=== PATIENT | male | born 1990 | race Caucasian/White ===

== ENCOUNTER 2023-06-12 07:16 | Outpatient (OUT) | payer MEDICARE, MEDICAID, SELFPAY ==
[2023-06-12 08:05] LABS: Estimated Average Glucose 105 mg/dL; Glycohemoglobin A1C 5.3 % (4.5-6.2)
[2023-06-12 08:27] LABS: Alanine Aminotransferase 27 U/L (16-63); Albumin Globulin Ratio 1.1; Alkaline Phosphatase 98 U/L (46-116); Anion Gap 8.3; Aspartate Amino Transferase 15 U/L (15-37); BUN Creatinine Ratio 10.2; Bilirubin Total 0.2 mg/dL (0.2-1.0); Carbon Dioxide 30.8 mmol/L (21.0-32.0); Chloride 105 mmol/L (98-107); Estimated GFR (African America >60 (>=60); Estimated GFR (Non-African Ame 56 (>=60); Globulin 3.5 g/dL; Glucose 94 mg/dL (74-106); Potassium 4.1 mmol/L (3.5-5.1); Sodium 140 mmol/L (136-145); Thyroid Stimulating Hormone 1.846 uIU/mL (0.358-3.740); Total Protein 7.5 g/dL (6.4-8.2)
[2023-06-15 08:12] LABS: Osmolality, Urine 265 mOsmol/kg (.)
== END 2023-06-12 07:17 | disposition home or self-care (01) ==
LOC: LAB 07:22
PROVIDERS: PCP Family Medicine; Visit Provider Family Medicine
DX: Z79.899 Other long term (current) drug therapy (principal)
CPT/HCPCS: 36415; 80053; 82306; 83036; 83935; 84439; 84443

== ENCOUNTER 2024-01-03 07:05 | Outpatient (OUT) | payer MEDICARE, MEDICAID, SELFPAY ==
[2024-01-03 07:37] LABS: Basophils Percent Auto 0.7 % (0.2-2.0); Eosinophils Absolute Auto 0.2 10^3/uL (0.0-0.7); Eosinophils Percent Auto 3.8 % (0.9-7.0); Hematocrit 39.8 % (42.0-54.0); Hemoglobin 13.3 g/dL (14.0-18.0); Lymphocytes Absolute Auto 1.2 10^3/uL (1.2-3.8); Lymphocytes Percent Auto 21.2 % (20.5-60.0); Mean Corpuscular HGB Conc 33.4 g/dL (29.9-35.2); Mean Corpuscular Volume 86.7 fL (80.0-94.0); Monocytes Absolute Auto 0.4 10^3/uL (0.3-0.8); Monocytes Percent Auto 7.1 % (1.7-12.0); Neutrophils Absolute Auto 3.9 10^3/uL (1.4-6.5); Neutrophils Percent Auto 67.2 % (43.0-75.0); Platelet Count 221 10^3/uL (150-450); Red Blood Count 4.59 10^6/uL (4.70-6.10); Red Cell Distribution Width 13.2 % (11.0-15.0); White Blood Count 5.8 10^3/uL (4.0-11.0)
[2024-01-03 09:01] LABS: Alanine Aminotransferase 28 U/L (16-63); Albumin Globulin Ratio 1.1; Albumin Level 3.8 g/dL (3.4-5.0); Alkaline Phosphatase 103 U/L (46-116); Anion Gap 13.6; Aspartate Amino Transferase 17 U/L (15-37); BUN Creatinine Ratio 14.1; Bilirubin Direct 0.1 mg/dL (0.0-0.2); Bilirubin Total 0.2 mg/dL (0.2-1.0); Carbon Dioxide 26.4 mmol/L (21.0-32.0); Chloride 108 mmol/L (98-107); Estimated GFR (African America >60 (>=60); Estimated GFR (Non-African Ame 52 (>=60); Globulin 3.6 g/dL; Glucose 81 mg/dL (74-106); Phosphorus 3.1 mg/dL (2.6-4.7); Sodium 144 mmol/L (136-145); Thyroid Stimulating Hormone 1.989 uIU/mL (0.358-3.740); Total Protein 7.4 g/dL (6.4-8.2)
[2024-01-03 09:53] LABS: Free T4 0.47 ng/dL (0.76-1.46)
[2024-01-04 10:09] LABS: PTH, Intact 19 pg/mL (15-65)
== END 2024-01-03 07:06 | disposition home or self-care (01) ==
LOC: LAB 07:07
PROVIDERS: PCP Family Medicine; Visit Provider Family Medicine
DX: N18.9 Chronic kidney disease, unspecified (principal); E03.9 Hypothyroidism, unspecified; E55.9 Vitamin D deficiency, unspecified
CPT/HCPCS: 36415; 80053; 82248; 82607; 82746; 83970; 84100; 84439; 84443; 85025

== ENCOUNTER 2024-07-06 17:11 | Outpatient (REF) | payer MEDICARE, MEDICAID, SELFPAY ==
--- OUTSIDE RECORDS SUMMARY | 2024-07-06 17:22 | XMS_ITS | CCD ---
Author Organization [facility] Care Team Providers Care Sewer And Inspector Name Role Phone DABOUL, ISAM Admitting Unavailable DABOUL, ISAM Attending Unavailable EPPSRALEIGH Primary Care Unavailable DABOUL, ISAM Referring Unavailable EPPSRALEIGH Primary Care Unavailable EPPSRALEIGH Admitting Unavailable EPPSRALEIGH Referring Unavailable EppsRaleigh Unavailable EppsRaleigh mccain Primary Care Provider RALEIGH EPPS Attending Unavailable EPPSRALEIGH Referring Unavailable EPPSRALEIGH Primary Care Unavailable Duke Nematollahi, Erin Unavailable Unavai Sai Tena Unavailable Unavailable Nancy DDS, Nataliia Unavailable Raleigh Epps DO Primary Care Provider Sai Batres Unavailable Unavailable Unavailable JAYDE ALEXIS Consulting Unavailable PAY ., DR GORDON Attending Unavailable EPPS, DR RALEIGH Cruz Primary Care Unavailable PAY ., DR GORDON Admitting Unavailable HAY ., DR HARVEY Attending Unavailable EPPS, DR RALEIGH Cruz Primary Care Unavailable HAY ., DR HARVEY Consulting Unavailable HAY ., DR HARVEY Admitting Unavailable FALVO, JON Consulting Unavailable EPPS, DR RALEIGH Cruz Consulting Unavailable EPPS, DR RALEIGH Cruz Primary Care Unavailable EPPS, DR RALEIGH Cruz Admitting Unavailable EPPS, DR RALEIGH Cruz Attending Unavailable EPPS, DR RALEIGH Cruz Consulting Unavailable EPPS, DR RALEIGH Cruz Primary Care Unavailable EPPS, DR RALEIGH Cruz Attending Unavailable EPPS, DR RALEIGH Cruz Admitting Unavailable ZIEBER, DR LUIS Gonzalez Consulting Unavailable MISC, DR YANEZ Attending Unavailable EPPS, DR RALEIGH Cruz Primary Care Unavailable MISC, DR YANEZ Consulting Unavailable MISC, DR YANEZ Admitting Unavailable EPPS, DR RALEIGH Cruz Consulting Unavailable EPPS, DR RALEIGH Cruz Primary Care Unavailable EPPS, DR RALEIGH Cruz Admitting Unavailable EPPS, DR RALEIGH Cruz Attending Unavailable EPPS, DR RALEIGH Cruz Primary Care Unavailable PAY ., DR GORDON Attending Unavailable PAY ., DR GORDON Consulting Unavailable PAY ., DR GORDON Admitting Unavailable YEHRISA Consulting Unavailable Duke Nematollahi, Erin Referring Unavai lable Medardo, Dr. Sai Mcgrath Primary Care Unavailab le Duke Nematollahi, Erin Attending Unavai lable Duke Nematollaelizabeth, Erin Attending Unavai lable Duke Nematollahi, Erin Referring Unavai lable Medardo, Dr. Sai Mcgrath Primary Care Unavailab le Duke Nematollahi, Erin Attending Unamelisa Batres, Dr. Sai Mcgrath Primary Care Unavailab le Self, Referral Referring Unavailable Nancy DDS, Nataliia Unavailable Raleigh Epps DO Primary Care Provider [phone] PROVIDER, UNKNOWN Admitting Unavailable PROVIDER, UNKNOWN Attending Unavailable RALEIGH EPPS Primary Care Unavailable PROVIDER, UNKNOWN Admitting Unavailable PROVIDER, UNKNOWN Attending Unavailable RALEIGH EPPS Primary Care Unavailable AL-MASHNI, TYRESE Admitting Unavailable AL-MASHNI, TYRESE Attending Unavailable RALEIGH EPPS Primary Care Unavailable PROVIDER, UNKNOWN Admitting Unavailable PROVIDER, UNKNOWN Attending Unavailable RALEIGH EPPS Primary Care Unavailable Sai Batres MD Primary Care Provider RALEIGH EPPS Referring Unavailable EPPSRALEIGH MCCAIN Attending Unavailable EPPSRALEIGH MCCAIN Admitting Unavailable BREE WHITING Attending Unavailable SAI BATRES Primary Care Unavailable BREE WHITING Attending Unavailable SAI BATRES Primary Care Unavailable Allergies Allergy Classification Reported Allergen(s) Allergy Type Date of Onset Reaction(s) Facility (3 sources) fluvoxaMINE; Translations: [Luvox] Drug Allergy [facility] Repository (15 sources) QUEtiapine; Translations: [SEROquel TABS] Drug Allergy 02-03-2017 Unknown [facility] [place] [address] Work Phone: (4 sources) risperiDONE; Translations: [risperiDONE TABS] Drug Allergy 02-06-2017 Unknown [facility] [employer] [address] Work Phone: (2 sources) Valproate; Translations: [Depakote] Drug Allergy [facility] [employer] [address] Work Phone: (15 sources) fluvoxaMINE; Translations: [FLUVOXAMINE] Drug Allergy 02-06-2017 [facility] Valproate; Translations: [VALPROIC ACID] Drug [facility] 02[facility]03[facility]2017 [facility] (13 sources) risperiDONE; Translations: [RISPERIDONE] Drug Allergy 02-06-2017 [facility] (2 sources) QUEtiapine; Translations: [QUETIAPINE] Drug Allergy 02-03-2017 [facility] Repository (2 sources) Valproate; Translations: [DIVALPROEX] Drug Allergy 11-15-2023 Unknown [facility] (1 source) QUEtiapine; Translations: [SEROquel] Drug Allergy [facility] Repository Medications Current Medications Medication Drug Class(es) Dates Sig (Normalized) Sig (Original) acetaminophen 325 mg oral tablet (15 sources) Start: 10-02-2023 End: 10-02-2023 acetaminophen (TYLENOL) tablet take 1-2 tablets by mouth every six hours as needed Acetaminophen 325 MG Oral Tablet TAKE 1 TO 2 TABLETS EVERY 6 HOURS NEEDED. Quantity: 0 Refills: 0 Ordered: 27-Jan-2015 DO Active bisacodyl 5 mg delayed release oral tablet (14 sources) Stimulant Laxative take 1 tablet by mouth once daily bisacodyl (DULCOLAX) 5 MG enteric coated tablet Take 5 mg by mouth daily. 0 Active Bisacodyl 10 MG Rectal Suppository USE DIRECTED. Quantity: 0 Refills: 0 Ordered: 27-Jan-2015 DO Active Bisacodyl 10 MG Rectal Suppository USE DIRECTED. Refills: 0 Active busPIRone hydrochloride 10 m g oral tablet (15 sources) take 3 tablets by mo ut three times daily busPIRone (Buspar) 10 mg tablet Take 3 tablets (30 mg) by mouth 3 times a day. 0 Active take 1 tablet by mouth three dalia es daily busPIRone HCl - 10 MG Oral Tablet TAKE 1 TABLET 3 times daily Quantity: 0 Refills: 0 Ordered: 16-Mar-2018 DO Active calcium carbonate 500 mg chewable tablet (3 sources) Start: 05-25-2021 calcium carbon ate (Tums) 200 mg calcium chewable tablet Chew 2 tablets (1,000 mg) once daily at bedtime. 0 05/25/2021 Active Start: 05-25-2021 Antacid Regula r Strength 500 MG Oral Tablet Chewable CHEW 2 TABLET BY MOUTH AT NIGHT BEFORE BED FOR NAUSEAUPSET STOMACH Quantity: 28 Refills: 0 Ordered: 19-Jan-2022 DO Start : 25-May-2021 Active Antacid CHEW ISAMAR E DIRECTED. Chew 2 every 4 hours as needed Refills: 0 Active Calcium Carbonate Antacid (ANTACID ORAL) (12 sources) take 2 tablets by mouth at bedtime Calcium Carbonate Antacid (ANTACID ORAL) Take 2 Tablets by mouth at bedtime. 0 Active cholecalciferol 0.025 mg oral tablet (14 sources) Vitamin D Start: 03-25-2022 take 1 tablet by mouth once daily cholecalciferol (Vitamin D-3) 25 MCG (1000 UT) tablet Take 1 tablet (25 mcg) by mouth once daily. 0 03/25/2022 Active Start: 03-25-2022 take 1 tablet by brenna once daily Vitamin D3 25 MCG (1000 UT) Oral Tablet TAKE 1 TABLET BY MOUTH EVERY DAY Quantity: 30 Refills: 5 Ordered: 25-Mar-2022 DO Start : 25-Mar-2022 Active cloNIDine hydrochloride 0.2 mg oral tablet (14 sources) Central alpha-2 Adrenergic Agonist take 1 tablet by mouth three times daily clonidine (CATAPRES) 0.2 MG tablet Take 0.2 mg by mouth 3 times daily. 0 Active docusate sodium 100 mg oral capsule (15 sources) take 1 capsule by mouth three times daily docusate sodium (Colace) 100 mg capsule Take 1 capsule (100 mg) by mouth 3 times a day. 0 Active take 2 capsules by m outh three times daily Docusate Sodium 100 MG Oral Capsule 2 capsules 3 times a day Quantity: 0 Refills: 0 Ordered: 01-Aug-2014 DO Active folic acid 1 mg oral tablet (15 sources) take 1 tablet by mouth once daily folic acid (Folvite) 1 mg tablet Take 1 tablet (1 mg) by mouth once daily. 0 Active gabapentin 400 mg oral capsule (4 sources) Anti-epileptic Agent take 1 capsule by mouth once daily gabapentin (Neurontin) 400 mg capsule Take 1 capsule (400 mg) by mouth once daily. 0 Active take 1 tablet by brenna th three times daily gabapentin (Neurontin) 800 mg tablet Isamar e 1 tablet (800 mg) by mouth 3 times a day. 0 Active guanFACINE 1 mg oral tablet (20 sources) Central alpha-2 Adrenergic Agonist Start: 03-25-2022 take 2 tablets by mouth once daily at bedtime guanFACINE (Tenex) 1 mg tablet Take 2 tablets (2 mg) by mouth once daily at bedtime. 0 03/25/2022 Active Start: 03-25-2022 take 1 tablet by brenna at bedtime guanFACINE HCl - 1 MG Oral Tablet TAKE 1 TABLET AT BEDTIME. Quantity: 0 Refills: 0 Ordered: 25-Mar-2022 DO Start : 25-Mar-2022 Active take 1 tablet by brenna twice daily guanFACINE (Tenex) 2 mg tablet Take 1 tablet (2 mg) by mouth twice a day. 0 Active take 4 tablets by mo [facility] in the morning, then take 8 tablets by mouth in the evening, then take 1 tablet by mouth at bedtime guanFACINE HCl - 2 MG Oral Tablet at 8 AM , 4 PM, and 8 PM and 1 tablet at bedtime Refills: 0 Active 1 ml HYDROmorphone hydrochloride 0.2 mg/ml prefilled syringe (2 sources) Opioid Agonist Start: 10-02-2023 End: 10-03-2023 HYDROmorphone (DILAUDID) 1 mg/mL injection Start: 10-02-2023 End: 10-04-2023 HYDROmorphone (DILAUDID) 0.2 MG/ML injection 0.2 mg linaclotide 0.29 mg oral capsule (15 sources) Guanylate Cyclase-C Agonist Start: 03-24-2016 take 1 capsule by mouth once daily linaCLOtide (Linzess) 290 mcg capsule Take 1 capsule (290 mcg) by mouth once daily. 0 03/24/2016 Active loratadine 10 mg oral tablet (15 sources) take 1 tablet by mouth once daily loratadine (Claritin) 10 mg tablet Take 1 tablet (10 mg) by mouth once daily. 0 Active lurasidone hydrochloride 120 mg oral tablet (15 sources) Atypical Antipsychotic Start: 01-20-2022 take 1 tablet by mouth once daily at bedtime lurasidone (Latuda) 120 mg tablet Take 1 tablet (120 mg) by mouth once daily at bedtime. 0 01/20/2022 Active take 1 tablet by mouth at bedtim e lurasidone (LATUDA) 80 MG tablet Take 1 Tablet by mouth at bedtime. 0 Active melatonin 5 mg oral tablet (15 sources) take 1 tablet by mouth once daily at bedtime melatonin 5 mg tablet Take 1 tablet (5 mg) by mouth once daily at bedtime. 0 Active metoprolol tartrate 100 mg oral tablet (15 sources) beta-Adrenergic Doug take 1 tablet by mouth four times daily metoprolol tartrate (Lopressor) 100 mg tablet Take 1 tablet (100 mg) by mouth 4 times a day. 0 Active Multiple Vitamins-Minerals (THERA-M ORAL) (12 sources) take 1 tablet by mouth once daily Multiple Vitamins-Minerals (THERA-M ORAL) Take 1 Tablet by mouth daily. 0 Active 1 ml naloxone hydrochloride 0.4 mg/ml injection (1 source) Opioid Antagonist Start: 3 naloxone (NARCAN) 0.4 MG/ML injection omeprazole 20 mg delayed release oral capsule (15 sources) Proton Pump Inhibitor take 1 capsule by mouth once daily omeprazole (PriLOSEC) [address] capsule Take 1 capsule (20 mg) by mouth once daily. 0 Active take 10 tablets by mouth once da regulo Omeprazole 20 MG Oral Tablet Delayed Release once a day Quantity: 0 Refills: 0 Ordered: 20-Jan-2017 DO Active Omeprazole 20 MG Oral Tablet Delayed Release once a day Refills: 0 Active 2 ml ondansetron 2 mg/ml injection (3 sources) Serotonin-3 Receptor Antagonist Start: 10-02-2023 End: 10-02-2023 ondansetron (ZOFRAN) 4 MG/2ML injection Start: 01-27-2015 take 1 tablet by brenna th every six hours as needed for nausea Ondansetron HCl - 4 MG Oral Tablet TAKE 1 TABLET Every 6 hours PRN nausea Quantity: 0 Refills: 0 Ordered: 27-Jan-2015 DO Start : 27-Jan-2015 Active OXcarbazepine 600 mg oral tablet (20 sources) Anti-epileptic Agent Start: 08-19-2021 OXcarbaze pine (Trileptal) 600 mg tablet Take by mouth 2 times a day. 0 08/19/2021 Active Start: 08-19-2021 take 2 tablets by mo uth twice daily OXcarbazepine 600 MG Oral Tablet TAKE TWO TABLETS BY MOUTH TWICE A DAY TRILEPTAL Quantity: 56 Refills: 0 Ordered: 26-Jan-2022 DO Start : 19-Aug-2021 Active take 600 mg by mouth once daily in the morning OXcarbazepine ER 600 MG TB24 Take 600 mg by mouth every morning. 0 Active take 1200 mg by mout h at bedtime OXcarbazepine ER 600 MG TB24 Take 1,200 mg by mouth at bedtime. 0 Active Polyethylene Glycols (12 sources) take 17 g by mouth twice daily Polyethylene Glycol 3350 (MIRALAX ORAL) Take 17 g by mouth 2 times daily. 0 Active 20 ml sodium chloride 9 mg/ml injection (1 source) Start: 10-02-2023 sodium chloride 0.9 % (PF) 0.9 % injection topiramate 25 mg oral capsule (3 sources) take 1 capsule by mouth three times daily topiramate (Topamax Sprinkle) 25 mg capsule Take 1 capsule (25 mg) by mouth 3 times a day. 0 Active take 1 capsule by mouth twice da regulo topiramate (TOPAMAX) 25 MG capsule Take 25 mg by mouth 2 times daily. 0 Active traMADol hydrochloride 50 mg oral tablet (1 source) Opioid Agonist Start: 10-02-2023 End: 10-02-2023 tramadol (ULTRAM) tablet traZODone hydrochloride 100 mg oral tablet (14 sources) Serotonin Reuptake Inhibitor Start: 10-19-2021 take 0.5 tablet by mouth once daily at bedtime traZODone (Desyrel) 100 mg tablet Take 0.5 tablets (50 mg) by mouth once daily at bedtime. 0 10/19/2021 Active Start: 10-19-2021 take 1 tablet by brenna th at bedtime traZODone HCl - 100 MG Oral Tablet TAKE ONE TABLET BY MOUTH AT BEDTIME DESYREL Quantity: 14 Refills: 0 Ordered: 26-Jan-2022 DO Start : 19-Oct-2021 Active Completed/Discontinued Medications Medication Drug Class(es) Dates Sig (Normalized) Sig (Original) antipyrine 54 mg/ml / benzocaine 14 mg/ml otic solution (1 source) Standardized Chemical Allergen Antipyrine-Benzoca ine 5.4-1.4 % SOLN PLACE 1 TO 2 DROPS IN THE AFFECTED EAR(S) EVERY 3 TO 4 HOURS NEEDED FOR EAR PAIN. Refills: 0 Active barium sulfate (VARIBAR PUDDING) 40 % (w/v), 30% (w/w) oral paste 1 Dose (1 source) Start: 09-11-2020 End: 09-11-2020 barium sulfate (VARIBAR PUDDING) 40 % (w/v), 30% (w/w) oral paste 1 Dose benztropine mesylate 0.5 mg oral tablet (1 source) Anticholinergic, Antihistamine take 1 tablet by mouth three times daily Benztropine Mesylate 0.5 MG Oral Tablet 1 tablet 3 times a day Refills: 0 Active carBAMazepine 200 mg oral tablet (14 sources) Mood Stabilizer Start: 01-20-2022 take 2 tablets by mouth twice daily carBAMazepine 200 MG Oral Tablet TAKE 2 TABLETS TWICE DAILY Quantity: 0 Refills: 0 Ordered: 30-Sep-2022 DO Start : 20-Jan-2022 Active take 1 tablet by mouth twice edith ly carbamazepine (TEGRETOL XR) 400 MG XR tablet Take 400 mg by mouth 2 times daily. 0 Active take 1 tablet by mouth once tom y carBAMazepine ER 400 MG Oral Tablet Extended Release 12 Hour TAKE 1 TABLET EVERY 12 HOURS DAILY. Refills: 0 Active cephalexin 500 mg oral capsule (1 source) Cephalosporin Antibacterial Start: 03-18-2022 take 1 capsule by mouth twice daily Cephalexin 500 MG Oral Capsule TAKE ONE CAPSULE BY MOUTH TWICE A DAY FOR 7 DAYS. Quantity: 14 Refills: 0 Ordered: 18-Mar-2022 DO Start : 18-Mar-2022 Active chlorhexidine gluconate 1.2 mg/ml mouthwash (2 sources) Start: 03-20-2019 Chlorhexidine Gluconate 0.12 % Mouth/Throat Solution USE DIRECTED Quantity: 0 Refills: 0 Ordered: 20-Mar-2019 DO Start : 20-Mar-2019 Active Start: 03-20-2019 Chlorhexidine Gluconate 0.12 % Mouth/Throat Solution USE DIRECTED Refills: 0 Start : 20-Mar-2019 Active clindamycin 10 mg/ml topical solution (1 source) Lincosamide Antibacterial Start: 08-01-2014 Clindamycin Phosphate 1 % External Solution APPLY DIRECTED NEEDED FOR ACNE Refills: 0 Start : 01-Aug-2014 Active clonazePAM 0.5 mg oral tablet (20 sources) Benzodiazepine Start: 08-17-2017 take 0.5 tablet by mouth once daily in the morning, then take 1.5 tablets by mouth at bedtime clonazePAM 0.5 MG Oral Tablet TAKE half tab every am, take 1.5 TABLET at bedtime. Quantity: 0 Refills: 0 Ordered: 25-Mar-2022 DO Start : 17-Aug-2017 Active Start: 08-17-2017 take 1 tablet by brenna th twice daily clonazePAM 0.5 MG Oral Tablet TAKE 1 TABLET TWICE DAILY. Refills: 0 Start : 17-Aug-2017 Active Start: 08-04-2017 take 1 tablet by brenna th three times daily clonazePAM 1 MG Oral Tablet TAKE 1 TABLET 3 TIMES DAILY. Refills: 0 Start : 04-Aug-2017 Active take 1 tablet by brenna twice daily clonazePAM (KlonoPIN) 1 MG tablet Take 1 mg by mouth 2 times daily. At 4pm and 10pm 0 Active guaiFENesin 400 mg oral tablet (2 sources) Start: 07-09-2021 take 1 tablet by mouth twice daily as needed for congestion Chest Congestion Relief 400 MG Oral Tablet TAKE ONE TABLET BY MOUTH TWICE A DAY NEEDED FOR CONGESTION Quantity: 20 Refills: 0 Ordered: 09-Jul-2021 DO Start : 09-Jul-2021 Active take 1 tablet by mouth twice edith ly Mucinex 600 MG Oral Tablet Extended Release 12 Hour TAKE 1 TABLET TWICE DAILY. Refills: 0 Active haloperidol 10 mg oral tablet (1 source) Typical Antipsychotic take 1 tablet by mouth three times daily Haloperidol 10 MG Oral Tablet Take 1 tablet three times daily. Refills: 0 Active ibuprofen 600 mg oral tablet (1 source) Nonsteroidal Anti-inflammatory Drug take 1 tablet by mouth three times daily as needed Ibuprofen 600 MG Oral Tablet TAKE 1 TABLET 3 TIMES DAILY NEEDED. Refills: 0 Active lanolin 0.157 mg/mg / menthol 0.0044 mg/mg / petrolatum 0.24 mg/mg / zinc oxide 0.206 mg/mg topical ointment (1 source) Calmoseptine 0.44-20.6 % OINT Apply to rash on groin area as needed until healed Refills: 0 Active levothyroxine sodium 0.05 mg oral tablet (16 sources) l-Thyroxine Start: 12-28-19 18 take 1 tablet by mouth once daily Levothyroxine Sodium 50 MCG Oral Tablet TAKE 1 TABLET DAILY. Quantity: 30 Refills: 0 Ordered: 25-Mar-2022 DO Start : 25-Mar-2022 Active Start: 10-19-2017 take 1 tablet by once daily Levothyroxine Sodium 100 MCG Oral Tablet TAKE 1 TABLET DAILY EXCEPT SATURDAYS. Quantity: 30 Refills: 10 Start : 19-Oct-2017 Active minocycline 100 mg oral tablet (1 source) Tetracycline-class Drug Minocycl ine HCl - 100 MG Oral Tablet daily Refills: 0 Active polyethylene glycol 3350 77785 mg powder for oral solution (2 sources) Osmotic Laxative Polyethylene Gl ycol 3350 17 GM Oral Packet MIX 1 PACKET IN 8 OUNCES OF LIQUID AND DRINK TWICE DAILY. Quantity: 0 Refills: 0 Ordered: 20-Jan-2017 DO Active raNITIdine 150 mg oral tablet (1 source) Histamine-2 Receptor Antagonist take 1 tablet by mouth twice daily raNITIdine HCl - 150 MG Oral Tablet TAKE 1 TABLET TWICE DAILY. Refills: 0 Active sertraline 50 mg oral tablet (1 source) Serotonin Reuptake Inhibitor take 1 tablet by mouth at bedtime Sertraline HCl - 50 MG Oral Tablet TAKE 1 TABLET AT BEDTIME. Quantity: 30 Refills: 6 Active Thera-M Oral Tablet (1 source) Start: 019 take 1 tablet by mouth once daily Thera-M Oral Tablet TAKE 1 TABLET DAILY. Refills: 0 Start : 20-Mar-2019 Active vitamin d 1000 unt oral tablet (1 source) Start: 017 take 1 tablet by mouth once daily Vitamin D 1000 UNIT Oral Tablet TAKE 1 TABLET DAILY. Quantity: 1 Refills: 3 Erin Ogden Start : 23-Jan-2017 Active 90 Tablet Bottle Problems Active Problems Problem Classification Problem Date Documented Da te Episodic/Chronic Attention-deficit, conduct, and disruptive behavior disorders (1 source) Other conduct disorders; Translations: [OTHER CONDUCT DISORDERS] Onset: 2 Chronic Attention-deficit, conduct, and disruptive behavior disorders (1 source) Attention-deficit hyperactivity disorder, unspecified type; Translations: [ADHD UNSPECIFIED TYPE] Onset: 2 Chronic Developmental disorders (15 sources) Profound intellectual disability; Translations: [Intellectual disability] Onset: 1 01-28-2021 Chronic Disorders usually diagnosed in infancy childhood or adolescence (3 sources) Autistic disorder; Translations: [Autistic disorder, current or active state] Onset: 2 Chronic Esophageal disorders (14 sources) Gastroesophageal reflux disease; Translations: [Gastro-esophageal reflux disease without esophagitis] Onset: 1 02-05-2021 Chronic Essential hypertension (15 sources) Hypertensive disorder; Translations: [Essential (primary) hypertension] Onset: 1 02-05-2021 Chronic Mood disorders (5 sources) Bipolar affective disorder, current episode manic; Translations: [Seasonal affective disorder] Onset: 3 Chronic Nutritional deficiencies (2 sources) Decreased vitamin D; Translations: [Other abnormal blood chemistry] Episodic Other aftercare (1 source) Other prison (current) drug therapy; Translations: [OTH FUR TINTER CURRENT DRUG THERAPY] Onset: 3 Episodic Other endocrine disorders (2 sources) Hyperparathyroidism, unspecified; Translations: [Hyperparathyroidism, unspecified (Multi)] Onset: 4 Chronic Other gastrointestinal disorders (1 source) Pharyngeal dysphagia; Translations: [Pharyngeal dysphagia] Episodic Other gastrointestinal disorders (2 sources) Constipation; Translations: [Constipation, unspecified] Episodic Other nutritional; endocrine; and metabolic disorders (2 sources) 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; Translations: [Hypercalcemia] Chronic Other nutritional; endocrine; and metabolic disorders (5 sources) Hypercalcemia; Translations: [Hypercalcemia] 11-15-2023 Chronic Comment on above: Added by Problem Lis t Migration; 2013-07-05; Moved to Suppressed Oct 05 2013 9:01PM; Other nutritional; endocrine; and metabolic disorders (2 sources) Hypocalcemia; Translations: [Hypocalcemia] Chronic Other nutritional; endocrine; and metabolic disorders (1 source) Hypocalcemia; Translations: [HYPOCALCEMIA] Onset: 2 Chronic Other nutritional; endocrine; and metabolic disorders (2 sources) Hypercalcemia; Translations: [Hypercalcemia] Onset: 4 Chronic Other nutritional; endocrine; and metabolic disorders (2 sources) Abnormal weight loss; Translations: [Loss of weight] Episodic Comment on above: Added by Problem Lis hiren Migration; 2013-07-05; Moved to [facility] Oct 05 2013 9:01PM; Other nutritional; endocrine; and metabolic disorders (2 sources) Overweight in adulthood with body mass index of 25 or more but less than 30; Translations: [Body mass index (BMI) 28.0-28.9, adult] 09-15-2023 Episodic Other nutritional; endocrine; and metabolic disorders (2 sources) Personal history of other endocrine, nutritional and metabolic disease; Translations: [Personal history of other endocrine, nutritional and metabolic disease] Onset: 4 Episodic Thyroid disorders (20 sources) Multinodular goiter; Translations: [Hypothyroidism] Onset: 1 02-05-2021 Chronic Past or Other Problems Problem Classification Problem Date Documented Da te Episodic/Chronic Attention-deficit, conduct, and disruptive behavior disorders (1 source) Other symptoms and signs involving appearance and behavior; Translations: [OTH SX SIGNS INVLV APPEAR BEHAVIOR] Onset: 09-12-2022 Episodic Conditions associated with dizziness or vertigo (4 sources) Dizziness and giddiness; Translations: [DIZZINESS AND GIDDINESS] Onset: 09-20-2022 Episodic Diabetes mellitus without complication (2 sources) Acute hyperglycemia; Translations: [Other abnormal glucose] Resolved: 07-12-2016 Episodic Diseases of mouth; excluding dental (1 source) Disturbances of salivary secretion; Translations: [DISTURBANCES OF SALIVARY SECRETION] Onset: 07-22-2022 Episodic Disorders of teeth and jaw (13 sources) Dental caries; Translations: [Dental caries, unspecified] Onset: 08-18-2023 Resolved: 10-02-2023 08-18-2023 Episodic E Codes: Fall (1 source) Unspecified fall, initial encounter; Translations: [UNSPECIFIED FALL INITIAL ENCOUNTER] Onset: 09-12-2022 Episodic E Codes: Natural/environment (1 source) Exposure to other specified factors, initial encounter; Translations: [EXPOSURE OTHER SPEC FACTORS INITIAL] Onset: 03-09-2022 Episodic Immunizations and screening for infectious disease (1 source) Encounter for immunization; Translations: [ENCOUNTER FOR IMMUNIZATION] Onset: 03-09-2022 Episodic Open wounds of head; neck; and trunk (12 sources) Laceration without foreign body of oral cavity, initial encounter; Translations: [Laceration without foreign body of left eyelid and periocular area, initial encounter] Onset: 03-07-2022 Episodic Other circulatory disease (1 source) Elevated blood-pressure reading, without diagnosis of hypertension; Translations: [ELEVATED BP READING W/O DX HTN] Onset: 09-25-2022 Episodic Other injuries and conditions due to external causes (1 source) Other specified injuries of head, initial encounter; Translations: [OTH SPEC INJURIES HEAD INITIAL ENC] Onset: 09-12-2022 Episodic Other screening for suspected conditions (not mental disorders or infectious disease) (1 source) Other specified abnormal findings of blood chemistry; Translations: [OTH SPEC ABNORMAL FINDINGS BLD CHEM] Onset: 10-10-2022 Episodic NEGATED: Highlighted row has not occurred!Residual codes; unclassified (6 sources) Disease Episodic Results Test Name Value Interpretation Reference Range Facility Consent for Treatmenton Consent for Treatment [id number] .[id number] Normal [facility] XR Adult Swallowing Function w/ Videoon 12-15-2023 XR Adult Swallowing Function w/ Video Exam Date/Time: 12/15/2023 09:32 EST Reason for Exam: DYSPHAGIA Report IMPRESSION: LIMITED MODIFIED BARIUM SWALLOW. A FULL REPORT WILL BE MADE BY THE SPEECH PATHOLOGY TEAM. EXAM: XR Adult Swallowing Function w/ Video DATE: 12/15/2023 9:03 AM CLINICAL HISTORY: DYSPHAGIA. COMPARISON: 10/30/2019 TECHNIQUE: Lateral videofluoroscopy was provided during speech therapy evaluation during ingestion of various barium consistencies. A total of 17.1 mGy Air Kerma (Ka, r) of fluoroscopy was used with 6 fluoroscopic cine series saved. No diagnostic images were obtained. FINDINGS: Oral and pharyngeal phases are within functional limits. There is no significant laryngeal penetration or tracheal aspiration observed. The patient essentially refused barium liquids. Mild to moderate residual collections are present within the vallecula and piriform sinuses. A full report will be made by the speech pathology team. Ordering Provider: RALEIGH EPPS FINAL REPORT Dictated: 12/15/2023 11:40 am Paul Ralph MD Signed (Electronic Signature): 12/15/2023 11:40 am Signed by: Paul Ralph MD Transcribed by: GLEN Technologist: FAMILIA Technical Comments Radiation Dose: chen Albert in mGy = 17.10 DAP = 395.03 Normal [facility] Physician Orderon 12-11-2023 Physician Order [id number]. 00TIFF Normal [facility] Anesthesia Postprocedure Clara luationon 10-03-2023 Performance Test Architect Authentication Interface Message Text Anesthesia Postoperative Assessment: Vital Signs (most recent): BP 141/91 (BP Location: right arm) Pulse 58 Temp 36 ???C (96.8 ???F) (Temporal) Resp 22 Ht 5' 10 (1.778 m) Wt 204 lb (92.5 kg) SpO2 100% BMI 29.27 kg/m??? Anesthesia Post Evaluation Level of consciousness: awake Post-procedure exam normal. Body temperature, hydration status, PONV and pain evaluated and addressed. Pain management: adequate Hydration status: normal PONV:No nausea/vomiting reported Cardiopulmonary status stable Respiratory status: acceptable Cardiovascular status: acceptable ANESTHESIA NOTABLE EVENTS: No notable events documented. Normal [facility] Anesthesia Preprocedure Eval uationon 10-02-2023 Performance Test Architect Authentication Interface Message Text ASA: 3 No history of anesthetic complications PSE status: Had PSE NPO status: >8 hours Past Medical History and Review of Systems (Full ROS completed in PSE) Pulmonary - negative ROS Dental ROS (+) teeth problems, Endo (+) hypothyroidism, Neuro/Psych (+) depression, bipolar disorder, seizures (Last seizure unknown), attention deficit hyperactivity disorder, Cardiovascular (+) hypertension, Surgical risk: intermediate; Cardiac condition: stable, (-) CHF ECG reviewed No previous ECG available GI/Hepatic/Renal (+) GERD, Heme/Other - negative ROS Other ROS: Markel Li is 33 year old male here for Procedure(s): DENTAL RESTORATIONS Patient Active Problem List: Intellectual disability (F79) GERD (gastroesophageal reflux disease) (K21.9) HTN (hypertension) (I10) Hypothyroid (E03.9) Caries (K02.9) Allergies: -- Depakote (Valproic Acid) -- Luvox (Fluvoxamine) -- Risperidone -- Seroquel (Quetiapine) Physical Exam Airway Mallampati: II TM distance: Adequate Micrognathia: Not present Jaw opening: Adequate Neck flexion: Adequate Dental Dentition: Dental carries. Pulmonary - pulmonary exam normal Comment: Chest clear to auscultation bilaterally Cardiovascular - cardiovascular exam normal Comment: RRR with S1S2; no murmurs, gallops, or rubs Neuro - neurological exam normal Comment: Severe autism/intellectual disability Plan Anesthesia plan: general; (ETT) Anesthesia risks / alternatives discussed pre-op Questions answered / anesthesia plan accepted Past medical history, surgical history, allergies, and medications reviewed. Pertinent laboratory tests, EKG, imaging, and consults reviewed and I have personally seen and evaluated the patient, repeating blanchard portions of the history and physical examination. Attestation: Anesthesia options were discussed with the patient and/or legal sales representative public utilities. The risks, benefits and alternatives were reviewed. Questions regarding anesthesia were answered. Patient and/or legal sales representative public utilities knows such anesthetics and procedures may be performed by Resident physicians, Certified Anesthesiologist Assistants, or Certified Nurse Anesthetists under the supervision of a physician. The patient /or the patient's legal sales representative public utilities agree with the plan for anesthesia. 30 yo M presents for dental restorations. Past Medical History: Diagnosis Date * ADHD (attention deficit hyperactivity disorder) * Autism * Bipolar 1 disorder (HCC) * Constipation * GERD (gastroesophageal reflux disease) * HTN (hypertension) * Hypocalcemia * Hypothyroid * Incontinence * Insomnia * Seasonal affective disorder (HCC) * Severe intellectual disabilities * Sialorrhea * Urinary retention ANESTHESIA REVIEW OF SYSTEMS: Eyes/ENT: Negative Teeth: Dental carries Pulmonary: Negative Cardio-vascular: HTN G.I./ Hepatic: GERD Renal/: Negative Neurological: Seizures (unclear when last seizure, appears to be significant time ago) Gynecological: N/A Psychiatric: severe autism, intellectual disabilty, bipolar Musculoskeletal: Negative Endocrine: Thyroid disease Hematologic: Negative Constitutional: Negative Skin: Negative Past Surgical History: Procedure Laterality Date * DENTAL RESTORATIONS N/A 02/06/2017 Procedure: DENTAL RESTORATIONS; Surgeon: Noé Drew DDS; Location: [facility]; Service: Dental * DENTAL RESTORATIONS Bilateral 02/15/2021 Procedure: DENTAL RESTORATIONS; Surgeon: Grabiel Cummings DDS; Location: [facility]; Service: Dental * EXTRACTION, TOOTH 02/06/2017 Procedure: EXTRACTION, TOOTH; Surgeon: Noé Drew DDS; Location: PER[facility]OPERATIVE SERVICES; Service: Dental * UNLISTED PROCEDURE, DENTOALVEOLAR STRUCTURES 04/29/10 * X-RAY EXAM OF TEETH. [id number] 04/29/10 Social History Socioeconomic History * Marital status: Single Tobacco Use * Smoking status: Never * Smokeless tobacco: Never Social History Narrative [facility]. Brother is guardian. Current Outpatient Medications on File Prior to Visit Medication Sig Dispense Refill * trazodone (DESYREL) 100 MG tablet Take 100 mg by mouth at bedtime. * levothyroxine (SYNTHROID) 50 MCG tablet Take 50 mcg by mouth daily. * lurasidone (LATUDA) 80 MG tablet Take 1 Tablet by mouth at bedtime. * guanFACINE HCl 2 MG TABS Take 1 Tablet by mouth 2 times daily. * guanfacine (TENEX) 1 MG tablet Take 2 Tablets by mouth at bedtime. * Multiple Vitamins-Minerals (THERA-M ORAL) Take 1 Tablet by mouth daily. * omeprazole (PRILOSEC) 20 MG capsule Take 20 mg by mouth daily. * loratadine (CLARITIN) 10 MG tablet Take 10 mg by mouth daily. * linaclotide (LINZESS) 290 MCG CAPS capsule Take 290 mcg by mouth daily. * clonazePAM (KlonoPIN) 0.5 MG tablet Take 0.5 mg by mouth every morning. * clonazePAM (KlonoPIN) 1 MG tablet Take 1 mg by mouth 2 times daily. At 4pm and 10pm * carbamazepine (more content not included)... Normal [facility] Performance Test Architect Authentication Interface Message Text Patient taken to PACU. Patient was drowsy and stable on arrival. Anesthesia Transfer of Care Note Past Medical History: Past Medical History: Diagnosis Date * ADHD (attention deficit hyperactivity disorder) * Autism * Bipolar 1 disorder (HCC) * Constipation * GERD (gastroesophageal reflux disease) * HTN (hypertension) * Hypocalcemia * Hypothyroid * Incontinence * Insomnia * Seasonal affective disorder (HCC) * Severe intellectual disabilities * Sialorrhea * Urinary retention Sleep Apnea/Positive STOP-BANG: No Problem List: Patient Active Problem List: Intellectual disability [F79] GERD (gastroesophageal reflux disease) [K21.9] HTN (hypertension) [I10] Hypothyroid [E03.9] Past Surgical History: Review of patient's past surgical history indicates: X-RAY EXAM OF TEETH. [id number] (04/29/10) UNLISTED PROCEDURE, DENTOALVEOLAR STRUCTURES (04/29/10) DENTAL RESTORATIONS (02/06/2017) Procedure: DENTAL RESTORATIONS; Surgeon: Noé Drew DDS; Location: [facility]OPER[facility]IVE SERVICES; Service: Dental EXTRACTION, TOOTH (02/06/2017) Procedure: EXTRACTION, TOOTH; Surgeon: Noé Drew DDS; Location: PER[facility]OPER[facility]IVE [facility]; Service: Dental DENTAL RESTORATIONS (02/15/2021) Procedure: DENTAL RESTORATIONS; Surgeon: Grabiel Cummings DDS; Location: [facility]; Service: Dental Allergies: Depakote [valproic acid], Luvox [fluvoxamine], Risperidone, and Seroquel [quetiapine] Basic Operating Room Facts: Surgeon(s): Tyrese Alexander DDS Anesthesiologist: Timothy Elizalde MD GASKET NOTCHER: Rainer Fatima APRN-GASKET NOTCHER Anesthesia Student: Joyce Rivers DENTAL RESTORATIONS (Bilateral) Intraoperative Events: No acute event ASA: 3 EBL: 5 mL Urine Not documented Lactated Ringers and NaCl 0.9%: Fluid Totals (Filter: LR and NaCl 0.9% Medications Shown) Medication Calculated Total Lactated Ringers 500 mL / 1 bag Cell Saver: Not documented Blood Volume Values: Blood Products None MTP Blood: MTP PRBC: Not documented MTP FFP: Not documented MTP PLT: Not documented MTP Cryo: Not documented MTP Whole Blood: Not documented Current Vasoactive Medications: {Vasoactive Medications: None Lines, Drains, Airways Peripheral IV Access: 10/02/23 1328 20 gauge Left Hand (Active) Site Assessment WNL;Dressing intact 10/02/23 1328 Infusion Status Port #1 Infusing 10/02/23 1328 Airway Insertion Details [REMOVED] Advanced Airway: ETT, Nasal;Cuffed #6.5 (Removed) 10/02/23 1333 Pre-Oxygenation/ Induction: Mask Rapid Sequence Induction?: Mask Ventilation: Easy Blade size: Mac 4 Visualization: Grade 1 Airway Type: ETT, Nasal;Cuffed Airway Size: #6.5 Post Insertion Assessment: Confirmation: Equal bilateral breath sounds, CO2 confirmed # Attempts >1: 2 Special Equipment: Glidescope Present on Admission?: Previously Removed / Not Present: Removal Reason: Not Removed at Discharge: Removed 10/02/23 1442 Location (cm) 27 10/02/23 1333 Measured from: Naris 10/02/231332 Secured via: Taped 10/02/231332 Site Assessment WNL 10/02/231332 All non-working IVs have been removed: N/A Laboratory Data: CBC (last 3 years, up to 5 values) WBC RBC Hgb Hct MCV RDW Plt 09/15/23 1638 6.3 4.80 13.8 41.8 87 13.3 213 Basic Metabolic Panel Na K Cl CO2 Gap Glu BUN Cr Ca 09/15/23 1638 140 4.1 105 26 13 69 18 1.58 9.6 Basic Metabolic Panel None No results found for: INR No result for BNP LFT's (last 3 years, up to 5 values) None Arterial Blood Gases None Hand off Completed: Yes 1. The patient was identified. 2. Pertinent medical history was relayed. 3. A brief discussion was had about any pertinent surgical/ procedural issues. 4. Intraoperative/ anesthetic management issue and concerns were discussed. 5. Plans for the early post-operative period relayed. 6. An opportunity for questions and acknowledgment of understanding of the report was received. Rainer Fatima APRN-ARANZA Normal [facility] Blood Attestationon 10-02-20 Performance Test Architect Authentication Interface Message Text Blood Attestation: ATTESTATION OF INFORMED CONSENT FOR BLOOD: The transfusion of blood and/or blood components were discussed with the patient and/or legal sales representative public utilities. The risks, benefits and alternatives were reviewed. Questions regarding blood transfusions were answered. The patient /or the patient's legal sales representative public utilities agree with the plan for transfusion of blood and/or blood components. Normal [facility] Brief Operative Noteon 10-02 Performance Test Architect Authentication Interface Message Text Brief Operative Note PHE OR 3 Markel Li 33 year old male Surgical Contact Serial Number: [id number] Preoperative Diagnosis: Caries [K02.9] Autism [ F 84] Postoperative Diagnosis: * Caries [K02.9] Procedures: Full mouth X ray [69199] Comprehensive exam [09040] Prophylaxis [28241] Restorations [00520] Surgeon(s): Surgeon(s): Tyrese Alexander DDS Staff: Armed Security Officer Nurse: Nina Galan RN Plumber'S Helper: Ca Raza DDS; Rosas Narayanan DDS Anesthesia: General Anesthesiologist: Timothy Elizalde MD GASKET NOTCHER: Rainer Fatima APRN-GASKET NOTCHER Anesthesia Student: Joyce Rivers Specimen(s): * No specimens in log * Estimated Blood Loss: less than 5 cc Lines/Drains: Peripheral IV Access: 10/02/23 132 20 gauge Left Hand (Active) Site Assessment WNL;Dressing intact 10/02/231327 Infusion Status Port #1 Infusing 10/02/231327 Temporarily Retained Foreign Object: No Findings: Normal Complications: None Status at end of surgery: Stable Activity: weight bearing as tolerated Surgical wound class: No wound. Patient Class: Outpatient Surgery. Is this a patient scheduled as an outpatient that needs to be admitted as an inpatient? No Dr. Mary was present in the OR for the critical portion of the procedure and procedure sign-out. Signed by Rosas Martini DDS 10/02/2023 2:29 PM Normal [facility] OP Noteon 10-02-2023 Performance Test Architect Authentication Interface Message Text Surgical Case Number Data Unavailable Operating Room Data Unavailable Preoperative Diagnosis: Caries [K02.9] Autism [ F 84] Preoperative Diagnosis: Caries [K02.9] Autism [ F 84] Postoperative Diagnosis: Autism [ F 84] Procedures: Full mouth X ray [73299] Comprehensive exam [92504] Prophylaxis [99899] Restorations [76454] Postoperative Diagnosis(es): Same @ENCORD@ Surgeon: Dr Tyra DDS Digital Sales Manager Surgeon: WILLIAMS Corcoran DDS Anesthesia: General- Nasal ETT Estimated Blood Loss: 5 cc IV Fluids: 700 cc Urine Output: Not measured. Findings: The patient was brought to the operating room and placed in the supine position on the operating room table. Following satisfactory induction of GA. The patient was intubated with a nasal endotracheal tube. He was then prepped and drapped in the usual sterile fashion for dental procedures. Full mouth series were then taken and an oral examination was completed. A moistened throat pack was then placed. Full mouth scaling then performed. The radiographs were examined by the attending and the resident and used in conjunction with th oral exam to formulate a treatment plan. The restorative aspect of the treatment plan included the following composite restorations # 6 I # 7 I , # 24 F , # 25 F .Amalgam restoratuions # 15 DB , # 13 MO These restorations were placed following excavation of the carious lesions on each tooth. The remaining dentition was then polished with prophy paste. The oral cavity was irrigated and suctioned then the throat pack was removed. Fluoride treament was placed on the remaining dentition. The patient tolerated the procedure well was extubated in the operating room, and taken to the PACU in stable condition. Complications: None Status at end of surgery: Stable Medications: Outpatient Medications Marked as Taking for the 10/02/23 encounter (Hospital Encounter) Medication Sig Dispense Refill gabapentin (NEURONTIN) 400 MG capsule Take 400 mg by mouth daily. topiramate (TOPAMAX) 25 MG capsule Take 25 mg by mouth 2 times daily. trazodone (DESYREL) 100 MG tablet Take 100 mg by mouth at bedtime. levothyroxine (SYNTHROID) 50 MCG tablet Take 50 mcg by mouth daily. lurasidone (LATUDA) 80 MG tablet Take 1 Tablet by mouth at bedtime. guanFACINE HCl 2 MG TABS Take 1 Tablet by mouth 2 times daily. omeprazole (PRILOSEC) 20 MG capsule Take 20 mg by mouth daily. loratadine (CLARITIN) 10 MG tablet Take 10 mg by mouth daily. linaclotide (LINZESS) 290 MCG CAPS capsule Take 290 mcg by mouth daily. busPIRone (BUSPAR) 10 MG tablet Take 3 Tablets by mouth 3 times daily. Calcium Carbonate Antacid (ANTACID ORAL) Take 2 Tablets by mouth at bedtime. bisacodyl (DULCOLAX) 5 MG enteric coated tablet Take 5 mg by mouth daily. OXcarbazepine ER 600 MG TB24 Take 1,200 mg by mouth at bedtime. OXcarbazepine ER 600 MG TB24 Take 600 mg by mouth every morning. Cholecalciferol (VITAMIN D3) 1000 units tabelt Take 1 Tablet by mouth daily. melatonin 5 MG TABS tablet Take 5 mg by mouth at bedtime. folic acid 1 MG tablet Take 1 mg by mouth daily. docusate sodium (COLACE) 100 MG capsule Take 100 mg by mouth 3 times daily. METOPROLOL TARTRATE ORAL Take 100 mg by mouth 4 times daily. Dictated by: Rosas Martini DDS: Dr Mary was present for the critical portions of the procedure. Rosas Martini DDS 10/02/2023 2:34 PM Normal [facility] Progress Noteson 10-02-2023 Performance Test Architect Authentication Interface Message Text ----- Monday, October 02, 2023 at 2:27:57 PM ----- ----- Provider: [id number] Isabel Mary DDS -- Clinic: [facility] ----- [place] notes, RM pt is read for tx good [place]. no x-ray finding beside possible defect in 12,13. 12 was good clinically, 13 MO old franklyn popped off during the scaling. 6,7 had discolored exposed dentine, Incisal restos were placed. 24,25 facials were found during cleaning as well. Quick case. OP Note by Rosas Narayanan DDS at 10/02/2023 1:49 PM Author: Rosas Narayanan DDS Service: - Author Type: Resident Filed: 10/02/2023 2:37 PM Date of Service: 10/02/2023 1:49 PM Note Type: OP Note Status: Cosign Needed Air And Water Filler: Rosas Narayanan DDS (Resident) Cosign Required: Yes Expand All Collapse All Surgical Case Number Data Unavailable Operating Room Data Unavailable Preoperative Diagnosis: Caries [K02.9] Autism [ F 84] Preoperative Diagnosis: Caries [K02.9] Autism [ F 84] Postoperative Diagnosis: Autism [ F 84] Procedures: Full mouth X ray [97390] Comprehensive exam [43627] Prophylaxis [75260] Restorations [04681] Postoperative Diagnosis(es): Same @ENCORD@ Surgeon: Dr Tyra DDS Digital Sales Manager Surgeon: WILLIAMS Corcoran DDS Anesthesia: General- Nasal ETT Estimated Blood Loss: 5 cc IV Fluids: 700 cc Urine Output: Not measured. Findings: The patient was brought to the operating room and placed in the supine position on the operating room table. Following satisfactory induction of GA. The patient was intubated with a nasal endotracheal tube. He was then prepped and drapped in the usual sterile fashion for dental procedures. Full mouth series were then taken and an oral examination was completed. A moistened throat pack was then placed. Full mouth scaling then performed. The radiographs were examined by the attending and the resident and used in conjunction with th oral exam to formulate a treatment plan. The restorative aspect of the treatment plan included the following composite restorations # 6 I # 7 I , # 24 F , # 25 F .Amalgam restorations # 15 DB , # 13 MO These restorations were placed following excavation of the carious lesions on each tooth. The remaining dentition was then polished with prophy paste. The oral cavity was irrigated and suctioned then the throat pack was removed. Fluoride treatment was placed on the remaining dentition. The patient tolerated the procedure well was extubated in the operating room, and taken to the PACU in stable condition. Complications: None Status at end of surgery: Stable Medications: Medications Taking Outpatient Medications Marked as Taking for the 10/02/23 encounter (Hospital Encounter) Medication Sig Dispense Refill * gabapentin (NEURONTIN) 400 MG capsule Take 400 mg by mouth daily. * topiramate (TOPAMAX) 25 MG capsule Take 25 mg by mouth 2 times daily. * trazodone (DESYREL) 100 MG tablet Take 100 mg by mouth at bedtime. * levothyroxine (SYNTHROID) 50 MCG tablet Take 50 mcg by mouth daily. * lurasidone (LATUDA) 80 MG tablet Take 1 Tablet by mouth at bedtime. * guanFACINE HCl 2 MG TABS Take 1 Tablet by mouth 2 times daily. * omeprazole (PRILOSEC) 20 MG capsule Take 20 mg by mouth daily. * loratadine (CLARITIN) 10 MG tablet Take 10 mg by mouth daily. * linaclotide (LINZESS) 290 MCG CAPS capsule Take 290 mcg by mouth daily. * busPIRone (BUSPAR) 10 MG tablet Take 3 Tablets by mouth 3 times daily. * Calcium Carbonate Antacid (ANTACID ORAL) Take 2 Tablets by mouth at bedtime. * bisacodyl (DULCOLAX) 5 MG enteric coated tablet Take 5 mg by mouth daily. * OXcarbazepine ER 600 MG TB24 Take 1,200 mg by mouth at bedtime. * OXcarbazepine ER 600 MG TB24 Take 600 mg by mouth every morning. * Cholecalciferol (VITAMIN D3) 1000 units tabelt Take 1 Tablet by mouth daily. * melatonin 5 MG TABS tablet Take 5 mg by mouth at bedtime. * folic acid 1 MG tablet Take 1 mg by mouth daily. * docusate sodium (COLACE) 100 MG capsule Take 100 mg by mouth 3 times daily. * METOPROLOL TARTRATE ORAL Take 100 mg by mouth 4 times daily. Dictated by: Rosas Martini DDS: Dr Mary was present for the critical portions of the procedure. Rosas Martini DDS 10/02/2023 2:34 PM Normal [facility] Telephone Encounteron 2022 Performance Test Architect Authentication Interface Message Text DD adult dental restorations on 10/02 under GA at [place]. PSE completed - consents obtained. PSE RN spoke to Miriam from [facility], confirmed NPO, [place] address, and 1100 arrival time Normal [facility] Telephone Encounteron 2022 Performance Test Architect Authentication Interface Message Text Informed Consent for dental surgery AND Anesthesia consent obtained and scanned into [employer]. Scheduled for surgery 10/02/2023. Normal [facility] BASIC METABOLIC PANELon 11-0 Anion gap [Moles/Vol] 13 mmol/L Normal 10-20 [facility] Comment on above: Performed By: #### C H8 ####S PATHOLOGY [id number] [place], [place], Calcium [Mass/Vol] 9.6 mg/dL Normal 8.4-10.[address] [facility] Comment on above: Performed By: #### C H8 ####[facility] PATHOLOGY [id number] [place], [place], Chloride [Moles/Vol] 105 mmol/L Normal 97-111 [facility] Comment on above: Performed By: #### C H8 ####[facility] PATHOLOGY [id number] [place], [place], CO2 [Moles/Vol] 26 mmol/L Normal 21-30 The [facility] Comment on above: Performed By: #### C H8 ####S PATHOLOGY [id number] [place], [place], Creatinine [Mass/Vol] 1.58 mg/dL High 0.80-1.30 The [facility] Comment on above: Performed By: #### C H8 ####[facility] PATHOLOGY [id number] [place], [place], ESTIMATED GFR (CKD-EPI) 59 mL/min/1.73sqm Low >=60 The [facility] Comment on above: Result Comment: 2020 CKD EPI Equation using Creatinine without Race Comment: Estimated glomerular filtration rate (eGFR) is calculated without a race coefficient. Values should be interpreted in the context of the patient's full clinical presentation. Reference: 1. Jay C, Joel M, Buddy BARRIENTOS, et al.. A Unifying Approach for GFR Estimation: Recommendations of the NKF-ASN Task Force on Reassessing the Inclusion of Race in Diagnosing Kidney Disease. [place] Journal of Kidney Diseases 2021;79(2):268-88.e1. 2. N Engl J Med 1 Vol. 385 Issue 19 Pages 2679-0548 Performed By: #### C H8 ####[facility] PATHOLOGY [id number] [place], [place], Glucose [Mass/Vol] 69 mg/dL Normal 68-110 The [facility] Comment on above: Performed By: #### C H8 ####[facility] PATHOLOGY [id number] [place], [place], Potassium [Moles/Vol] 4.1 mmol/L Normal 3.3-5.3 The [facility] Comment on above: Performed By: #### C H8 ####S PATHOLOGY [id number] [place], [place], Sodium [Moles/Vol] 140 mmol/L Normal 135-148 The [facility] Comment on above: Performed By: #### C H8 ####S PATHOLOGY [id number] [place], [place], Urea nitrogen [Mass/Vol] 18 mg/dL Normal 8-22 [facility] Comment on above: Performed By: #### C H8 ####S PATHOLOGY [id number] [place], [id number] Basic metabolic 2000 panelon 09-15-2023 Anion gap [Moles/Vol] 13 mmol/L 10 - 20 [facility] Calcium [Mass/Vol] 9.6 mg/dL 8.4 - 10. 4 mg/dL [facility] Chloride [Moles/Vol] 105 mmol/L 97 - 11 1 mmol/L [facility] CO2 [Moles/Vol] 26 mmol/L 21 - 30 mmol/L [facility] Creatinine [Mass/Vol] 1.58 mg/dL High 0.80 - 1.30 mg/dL [facility] GFR/1.73 sq M.predicted MDRD (S/P/Bld) [Vol rate/Area] 59 mL/min/{1.73_m2} Low - PINF [facility] Comment on above: 2020 CKD EPI Equatio n using Creatinine without Race Comment: Estimated glomerular filtration rate (eGFR) is calculated without a race coefficient. Values should be interpreted in the context of the patient's full clinical presentation. Reference: 1. Jay C, Joel M, Buddy BARRIENTOS, et al.. A Unifying Approach for GFR Estimation: Recommendations of the NKF-ASN Task Force on Reassessing the Inclusion of Race in Diagnosing Kidney Disease. [place] Journal of Kidney Diseases 202;79(2):268-88.e1. 2. N Engl J Med 2020 Vol. 385 Issue 19 Pages 3608-4316 Glucose [Mass/Vol] 69 mg/dL 68 - 110 mg/dL [facility] Interpretation and review of laboratory results Abnormal [facility] Potassium [Moles/Vol] 4.1 mmol/L 3.3 - 5.3 mmol/L [facility] Sodium [Moles/Vol] 140 mmol/L 135 - 148 mmol/L [facility] Urea nitrogen [Mass/Vol] 18 mg/dL 8 - 22 mg/dL [facility] CBC panel Auto (Bld)on 09-15 Erythrocyte distribution width (RBC) [Ratio] 13.3 % 11.5 - 14.5 % [facility] Hematocrit (Bld) [Volume fraction] 41.8 % 41.0 - 53.0 % [facility] Hemoglobin (Bld) [Mass/Vol] 13.8 g/dL Low 13.9 - 16.3 g/dL [facility] Interpretation and review of laboratory results Abnormal [facility] MCH (RBC) [Entitic mass] 28.7 pg 26.0 - 34.0 pg [facility] MCHC (RBC) [Mass/Vol] 32.9 g/dL 32.0 - 35.9 g/dL [facility] (RBC) [Entitic vol] 87 fL 80 - 100 fL [facility] Platelet mean volume (Bld) [Entitic vol] 8.7 fL 7.5 - 11.2 fL [facility] Platelets (Bld) [#/Vol] 213 10*3/uL 150 - 400 K/uL [facility] RBC (Bld) [#/Vol] 4.80 10*6/uL [facility] WBC (Bld) [#/Vol] 6.3 10*3/uL 4.5 - 11.5 K/uL [facility] COMPLETE BLOOD COUNTon 09-15 Erythrocyte distribution width (RBC) [Ratio] 13.3 % Normal 11.5-14.5 [facility] Comment on above: Performed By: #### C BC ####S PATHOLOGY [id number] [place], Hematocrit (Bld) [Volume fraction] 41.8 % Normal 41.0-53.0 [facility] Comment on above: Performed By: #### C BC ####S PATHOLOGY [id number] [place], Hemoglobin (Bld) [Mass/Vol] 13.8 g/dL Low 13.9-16.3 [facility] Comment on above: Performed By: #### C BC ####S PATHOLOGY [id number] [place], MCH (RBC) [Entitic mass] 28.7 pg Normal 26.0-34.0 [facility] Comment on above: Performed By: #### C BC ####S PATHOLOGY [id number] [place], MCHC (RBC) [Mass/Vol] 32.9 g/dL Normal 32.0-35.9 [facility] Comment on above: Performed By: #### C BC ####S PATHOLOGY [id number] [place], MCV (RBC) [Entitic vol] 87 fL Normal 80-100 [facility] Comment on above: Performed By: #### C BC ####[facility] PATHOLOGY [id number] [place], Platelet mean volume (Bld) [Entitic vol] 8.7 fL Normal 7.5-11.2 [facility] Comment on above: Performed By: #### C BC ####[facility] PATHOLOGY [id number] [place], Platelets (Bld) [#/Vol] 213 10*3/uL Normal 150-400 [facility] Comment on above: Performed By: #### C BC ####[facility] PATHOLOGY [id number] [place], RBC (Bld) [#/Vol] 4.80 10*6/uL Normal 4.50-5.90 [facility] [place] [facility] Comment on above: Performed By: #### C BC ####[facility] PATHOLOGY [id number] [place], WBC (Bld) [#/Vol] 6.3 10*3/uL Normal 4.5-11.5 [facility] Comment on above: Performed By: #### C BC ####[facility] PATHOLOGY [id number] [place], [place], PSE Chartingon 09-15-2023 Performance Test Architect Authentication Interface Message Text Dental Consult The Dental Department was asked to consult on this patient by PSE Service. No chief complaint on file. 33 year old was admited for PSE reports the following symptoms: History of present illness: Past Medical History: Diagnosis Date ADHD (attention deficit hyperactivity disorder) Autism Bipolar 1 disorder (HCC) Constipation GERD (gastroesophageal reflux disease) HTN (hypertension) Hypocalcemia Hypothyroid Incontinence Insomnia Seasonal affective disorder (HCC) Severe intellectual disabilities Sialorrhea Urinary retention Current Outpatient Medications: trazodone (DESYREL) 100 MG tablet, Take 100 mg by mouth at bedtime., Disp: , Rfl: levothyroxine (SYNTHROID) 50 MCG tablet, Take 50 mcg by mouth daily., Disp: , Rfl: lurasidone (LATUDA) 80 MG tablet, Take 1 Tablet by mouth at bedtime., Disp: , Rfl: guanFACINE HCl 2 MG TABS, Take 1 Tablet by mouth 2 times daily., Disp: , Rfl: guanfacine (TENEX) 1 MG tablet, Take 2 Tablets by mouth at bedtime., Disp: , Rfl: Multiple Vitamins-Minerals (THERA-M ORAL), Take 1 Tablet by mouth daily., Disp: , Rfl: omeprazole (PRILOSEC) 20 MG capsule, Take 20 mg by mouth daily., Disp: , Rfl: loratadine (CLARITIN) 10 MG tablet, Take 10 mg by mouth daily., Disp: , Rfl: linaclotide (LINZESS) 290 MCG CAPS capsule, Take 290 mcg by mouth daily., Disp: , Rfl: clonazePAM (KlonoPIN) 0.5 MG tablet, Take 0.5 mg by mouth every morning., Disp: , Rfl: clonazePAM (KlonoPIN) 1 MG tablet, Take 1 mg by mouth 2 times daily. At 4pm and 10pm, Disp: , Rfl: carbamazepine (TEGRETOL XR) 400 MG XR tablet, Take 400 mg by mouth 2 times daily., Disp: , Rfl: busPIRone (BUSPAR) 10 MG tablet, Take 3 Tablets by mouth 3 times daily., Disp: , Rfl: Calcium Carbonate Antacid (ANTACID ORAL), Take 2 Tablets by mouth at bedtime., Disp: , Rfl: bisacodyl (DULCOLAX) 5 MG enteric coated tablet, Take 5 mg by mouth daily., Disp: , Rfl: OXcarbazepine ER 600 MG TB24, Take 1,200 mg by mouth at bedtime., Disp: , Rfl: OXcarbazepine ER 600 MG TB24, Take 600 mg by mouth every morning., Disp: , Rfl: acetaminophen (TYLENOL) 325 MG tablet, Take 1-2 Tablets by mouth every 4 hours as needed., Disp: , Rfl: Cholecalciferol (VITAMIN D3) 1000 units tabelt, Take 1 Tablet by mouth daily., Disp: , Rfl: Polyethylene Glycol 3350 (MIRALAX ORAL), Take 17 g by mouth 2 times daily., Disp: , Rfl: melatonin 5 MG TABS tablet, Take 5 mg by mouth at bedtime., Disp: , Rfl: folic acid 1 MG tablet, Take 1 mg by mouth daily., Disp: , Rfl: docusate sodium (COLACE) 100 MG capsule, Take 100 mg by mouth 3 times daily., Disp: , Rfl: clonidine (CATAPRES) 0.2 MG tablet, Take 0.2 mg by mouth 3 times daily., Disp: , Rfl: METOPROLOL TARTRATE ORAL, Take 100 mg by mouth 4 times daily., Disp: , Rfl: Allergies Allergen Reactions Depakote [Valproic Acid] Luvox [Fluvoxamine] Risperidone Seroquel [Quetiapine] Clinical Exam Gingivitis. No sings of infection. No evidence of gross cavities. Tooth #8 is missing. The patient grinds his teeth very often. Radiographic Examination No x-ray taken Differential Diagnosis N/A Treatment Dental Treatment in the OR Follow-up [facility] Family Dentistry if needed Note: Legal guardian: Yogesh Li (BROTHER): [phone]. The patient lives in a Facility. A caregiver brushes his teeth twice a day. Ramu Jernigan DDS Normal [facility] Patient Instructionson 09-15 Performance Test Architect Authentication Interface Message Text RECOMMENDATIONS: Patient was instructed on the following: Nothing by mouth after midnight before surgery except following meds with sip of water on AM of surgery: as per anesthesia Stop aspirin 7 days before surgery Stop NSAID 5 days before surgery Stop Vitamin E 10 days prior to surgery Stop alternative/herbal medication 10 days before surgery Normal [facility] Progress Noteson 09-15-2023 Performance Test Architect Authentication Interface Message Text Blood pressure 112/72, pulse 58, temperature 97.7 ???F (36.5 ???C), temperature source Temporal, resp. rate 32, height 5' 10.47 (1.79 m), weight 204 lb 9.6 oz (92.8 kg), SpO2 99 %. Medications/Allergies Reviewed CURRENT MEDICATIONS Current Outpatient Medications Medication Sig Dispense Refill trazodone (DESYREL) 100 MG tablet Take 100 mg by mouth at bedtime. levothyroxine (SYNTHROID) 50 MCG tablet Take 50 mcg by mouth daily. lurasidone (LATUDA) 80 MG tablet Take 1 Tablet by mouth at bedtime. guanFACINE HCl 2 MG TABS Take 1 Tablet by mouth 2 times daily. guanfacine (TENEX) 1 MG tablet Take 2 Tablets by mouth at bedtime. Multiple Vitamins-Minerals (THERA-M ORAL) Take 1 Tablet by mouth daily. omeprazole (PRILOSEC) 20 MG capsule Take 20 mg by mouth daily. loratadine (CLARITIN) 10 MG tablet Take 10 mg by mouth daily. linaclotide (LINZESS) 290 MCG CAPS capsule Take 290 mcg by mouth daily. clonazePAM (KlonoPIN) 0.5 MG tablet Take 0.5 mg by mouth every morning. clonazePAM (KlonoPIN) 1 MG tablet Take 1 mg by mouth 2 times daily. At 4pm and 10pm carbamazepine (TEGRETOL XR) 400 MG XR tablet Take 400 mg by mouth 2 times daily. busPIRone (BUSPAR) 10 MG tablet Take 3 Tablets by mouth 3 times daily. Calcium Carbonate Antacid (ANTACID ORAL) Take 2 Tablets by mouth at bedtime. bisacodyl (DULCOLAX) 5 MG enteric coated tablet Take 5 mg by mouth daily. OXcarbazepine ER 600 MG TB24 Take 1,200 mg by mouth at bedtime. OXcarbazepine ER 600 MG TB24 Take 600 mg by mouth every morning. acetaminophen (TYLENOL) 325 MG tablet Take 1-2 Tablets by mouth every 4 hours as needed. Cholecalciferol (VITAMIN D3) 1000 units tabelt Take 1 Tablet by mouth daily. Polyethylene Glycol 3350 (MIRALAX ORAL) Take 17 g by mouth 2 times daily. melatonin 5 MG TABS tablet Take 5 mg by mouth at bedtime. folic acid 1 MG tablet Take 1 mg by mouth daily. docusate sodium (COLACE) 100 MG capsule Take 100 mg by mouth 3 times daily. clonidine (CATAPRES) 0.2 MG tablet Take 0.2 mg by mouth 3 times daily. METOPROLOL TARTRATE ORAL Take 100 mg by mouth 4 times daily. No current facility-administered medications for this visit. ALLERGIES Allergies Allergen Reactions Depakote [Valproic Acid] Luvox [Fluvoxamine] Risperidone Seroquel [Quetiapine] Latex Allergy: No Surgical Procedure: dental amish Surgeon: unknown Date of Surgery: 10/02/2023 HISTORY: 33 year old with history of ASD, ID, Bipolar d/o, HTN, Hypothyroidism, Hypocalcemia, GERD, CKD 3 and Constipation scheduled for above procedure My opinion was requested regarding this patient's complex presurgical evaluation. Pertinent Past Medical History and Surgical History Reviewed. Past Medical History: Diagnosis Date ADHD (attention deficit hyperactivity disorder) Autism Bipolar 1 disorder (HCC) Constipation GERD (gastroesophageal reflux disease) HTN (hypertension) Hypocalcemia Hypothyroid Incontinence Insomnia Seasonal affective disorder (HCC) Severe intellectual disabilities Sialorrhea Urinary retention Past Surgical History: Procedure Laterality Date DENTAL RESTORATIONS N/A 02/06/2017 Procedure: DENTAL RESTORATIONS; Surgeon: Noé Drew DDS; Location: PERIOPERATIVE SERVICES; Service: Dental DENTAL RESTORATIONS Bilateral 02/15/2021 Procedure: DENTAL RESTORATIONS; Surgeon: Grabiel Cummings DDS; Location: [facility] Surgery [place]; Service: Dental EXTRACTION, TOOTH 02/06/2017 Procedure: EXTRACTION, TOOTH; Surgeon: Noé Drew DDS; Location: PERIOPERATIVE SERVICES; Service: Dental UNLISTED PROCEDURE, DENTOALVEOLAR STRUCTURES 04/29/10 X-RAY EXAM OF TEETH. [id number] 04/29/10 Pertinent Social History Reviewed Social History Tobacco Use Smoking Status Never Smokeless Tobacco Never Social History Substance and Sexual Activity Alcohol Use Not on file Social History Substance and Sexual Activity Drug Use Not on file Family History Reviewed. Family history is unknown by patient. 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 No rash or lesions HEENT: Uncooperative with exam N (more content not included)... Normal [facility] Performance Test Architect Authentication Interface Message Text Patient was identified by name and date of . Lashon Akin Parsons Normal [facility] Progress Noteson 09-06-2023 Performance Test Architect Authentication Interface Message Text Parent/guardian(Mag gaines @ [place]) was contacted for PSE AND OR scheduled -- confirmed information with mom, also informed mom importance of receiving PSE call -- if not received surgery will be canceled ----- Wednesday, September 06, 2023 at 11:27:36 AM ----- ----- Provider: Bridget Lombardi Specialist -- Clinic: [facility] ----- Normal [facility] Follow Up (Endocrinology)on 03-14-2023 Follow Up (Endocrinology) Diagnoses/Problems Assessed Hypothyroidism (244.9) (E03.9) Low vitamin D level (790.6) (R79.89) Hypocalcemia (275.41) (E83.51) Multinodular goiter (241.1) (E04.2) Orders Hypocalcemia, Hypothyroidism, Low vitamin D level Comprehensive Metabolic Panel; Status:Active; Requested for:14Mar2023; Perform:Lab Services - Lab To Draw (Blood Test); Due:[id number];Ordered ; For:Hypocalcemia, Hypothyroidism, Low vitamin D level; Ordered By:Erin Ogden; Hemoglobin A1C; Status:Active; Requested for:14Mar2023; Perform:Lab Services - Lab To Draw (Blood Test); Due:[id number];Ordered ; For:Hypocalcemia, Hypothyroidism, Low vitamin D level; Ordered By:Erin Ogden; Osmolality, Serum; Status:Active; Requested for:14Mar2023; Perform:Lab Services - Lab To Draw (Blood Test); Due:[id number];Ordered ; For:Hypocalcemia, Hypothyroidism, Low vitamin D level; Ordered By:Erin Ogden; Osmolality, Urine Spot; Status:Active; Requested for:14Mar2023; Perform:Lab Services - Lab To Draw (Non-Blood Test); Due:[id number];Ordered ; For:Hypocalcemia, Hypothyroidism, Low vitamin D level; Ordered By:Erin Ogden; TSH WITH REFLEX TO FREE T4 IF ABNORMAL; Status:Active; Requested for:14Mar2023; Perform:Lab Services - Lab To Draw (Blood Test); Due:[id number];Ordered ; For:Hypocalcemia, Hypothyroidism, Low vitamin D level; Ordered By:Erin Ogden; Vitamin D 25-Hydroxy; Status:Active; Requested for:14Mar2023; Perform:Lab Services - Lab To Draw (Blood Test); Due:[id number];Ordered ; For:Hypocalcemia, Hypothyroidism, Low vitamin D level; Ordered By:Erin Ogden; Multinodular goiter Ultrasound Thyroid; Status:Hold For - Scheduling; Requested for:14Mar2023; Perform: Radiology Services Imaging; Due:12Jun2023;Ordered ; For:Multinodular goiter; Ordered By:Erin Ogden; Radiologist to Determine Optimal Study : Y What are the patient's signs and symptoms? : f/u Patient Discussion/Summary we will call you with labs Provider Impressions 32 yo male with severe mental retardation, autism, bipolar disorder,severe psychosis,GERD, HTN , hypercalcemia likely 2/2 [facility] with exacerbation by lithium intake (that has been taking since ), hypothyroidism with goiter bilateral thyroid cysts, with normal BMD. 1- MNG goiter repeat USG,was done and repeat USG showed bilateral thyroid cysts and all subcentimeter stable . no changes on exam. USG in 2016 reviewed no suspicious lesion, has some swelling, recheck USG , weight loss has stopped, TFT normal. recheck TFT , urine osm and vitamin D and calcium, lithium was stopped recently no acute issues clinically euthyroid some choking recheck USG previous USG only cystic small lesions if this si stabel then he willsee his GI and PCP for choking issues, no acute issues labs ordered 2-Hypothyroidism: On Lt 4 50 mcg q day clinically euthyroid, weight loss has stopped ,labs normal. 3- history of hypercalcemia : Last Calcium level was normal PTH normal, vitamin D normal,we will check again 4- weight loss: has stopped, saw GI lip ulcer has healed. Chief Complaint An interactive audio and video telecommunication system which permits real time communications between the patient (at the originating site) and provider (at the distant site) was utilized to provide this telehealth service. Verbal consent was requested and obtained from MARKEL LI on this date, 03/14/2023 10:00 AM , for a telehealth visit. Follow up visit regarding his thyroid. History of Present Eyioljc28 yo male with severe mental retardation, autism, bipolar disorder,severe psychosis,GERD, HTN , hypercalcemia [facility] 2/2 [facility] with exacerbation by lithium intake (that has been taking since ), hypothyroidism with goiter and bilateral thyroid cysts , with BMD on 08/24 with no evidence of osteoporosis or osteopenia (normal findings) as per caregiver, no new issue or complaints , last calcium 10.7 no acute issues, no more weight loss, nurses told me he feels fine no acute issues. on Lt4 50 mcgq day no sign of hypothyroidism. No kidney stones, no falls, he drinks around 40 ounces of fluids/water per day. He sometimes skips meals for a whole day , then eats a day after. not on Quail 300 mg , did not changed since last visit as per sheet . guardian is brother Yogesh nb [phone] seeing GI , EGD was fine. no acute issues. is losing weight again , had a lip biopsy and infected ulcer is healed, weight loss has stopped, on Lt4 50 mcgq day and we need recent albs, slightly more agitated , had a fall with bruise on his face , [place] physician is following. no changes in neuro exam. TSH was normal on labs , , calcium and sodium normal, no acute issues, weight loss is resolved appetite better. USG in 2016 no suspicious lesion no choking or hoarseness, he seemed fine on the video today he is non verbal. no behavioral issues. lithuim is off some choking reordered USG clinically euthyroid. recent labs were norm (more content not included)... Normal [facility] OSMOLALITYon 01-20-2023 Osmolality [Osmolality] 291 mosm/kg Normal 275-295 [facility] Comment on above: Performed By: #### C MP, T4, TSH #### [facility] [address] [place], [place] [address] Dr. Juan Argueta CBC AUTO DIFFon 01-18-2023 BASO # 0.0 103/ul Normal 0.0-0.1 [facility] Comment on above: Performed By: #### C MP, T4, TSH #### [facility] [address] [place] [address] Dr. Juan Argueta Basophils/100 WBC (Bld) 0.6 % Normal 0.2-2.0 [facility] Comment on above: Performed By: #### C MP, T4, TSH #### [facility] [address] [place] [address] Dr. Juan Argueta EO # 0.1 103/ul Normal 0.0-0.7 [facility] Comment on above: Performed By: #### C MP, T4, TSH #### [facility] [address] [place] [address] Dr. Juan Argueta Eosinophils/100 WBC (Bld) 2.8 % Normal 0.9-7.0 [facility] Comment on above: Performed By: #### C MP, T4, TSH #### [facility] [address] [place] [address] Dr. Juan Argueta Erythrocyte distribution width (RBC) [Ratio] 12.9 % Normal 11.0-15.0 [facility] Comment on above: Performed By: #### C MP, T4, TSH #### [facility] [address] [place] [address] Dr. Juan Argueta Hematocrit (Bld) [Volume fraction] 45.4 % Normal 42.0-54.0 [facility] Comment on above: Performed By: #### C MP, T4, TSH #### [facility] [address] [place] [address] Dr. Juan Argueta Hemoglobin (Bld) [Mass/Vol] 15.4 g/dL Normal 14.0-18.0 [facility] Comment on above: Performed By: #### C MP, T4, TSH #### [facility] [address] [place] [address] Dr. Juan Argueta IG # 0.01 10e3/ul Normal 0.00-0.03 [facility] Comment on above: Performed By: #### C MP, T4, TSH #### [facility] [address] [place] [address] Dr. Juan Argueta IG % 0.2 % Normal 0.0-0.5 [facility] Comment on above: Performed By: #### C MP, T4, TSH #### [facility] [address] [place] [address] Dr. Juan Argueta LYMPH # 1.3 103/ul Normal 1.2-3.8 [facility] Comment on above: Performed By: #### C MP, T4, TSH #### [facility] [address] [place] [address] Dr. Juan Argueta Lymphocytes/100 WBC (Bld) 25.1 % Normal 20.5-60.0 [facility] Comment on above: Performed By: #### C MP, T4, TSH #### [facility] [address] [place] [address] Dr. Juan Argueta MANUAL DIFF REQ NO Normal [facility] Comment on above: Performed By: #### C MP, T4, TSH #### [facility] [address] [place] [address] Dr. Juan Argueta MCH (RBC) [Entitic mass] 28.3 pg Normal 25.9-34.0 [facility] Comment on above: Performed By: #### C MP, T4, TSH #### [facility] [address] [place] [address] Dr. Juan Argueta MCHC (RBC) [Mass/Vol] 33.9 g/dL Normal 29.9-35.2 [facility] Comment on above: Performed By: #### C MP, T4, TSH #### [facility] [address] [place] [address] Dr. Juan Argueta MCV (RBC) [Entitic vol] 83.3 fL Normal 80.0-94.0 [facility] Comment on above: Performed By: #### C MP, T4, TSH #### [facility] [address] [place] [address] Dr. Juan Argueta MONO # 0.3 103/ul Normal 0.3-0.8 [facility] Comment on above: Performed By: #### C MP, T4, TSH #### [facility] [address] [place] [address] Dr. Juan Argueta Monocytes/100 WBC (Bld) 5.9 % Normal 1.7-12.0 [facility] Comment on above: Performed By: #### C MP, T4, TSH #### [facility] [address] [place] [address] Dr. Juan Argueta NEUT # 3.3 103/ul Normal 1.4-6.5 [facility] Comment on above: Performed By: #### C MP, T4, TSH #### [facility] [address] [place] [address] Dr. Juan Argueta Neutrophils/100 WBC (Bld) 65.4 % Normal 43.0-75.0 [facility] Comment on above: Performed By: #### C MP, T4, TSH #### [facility] [address] [place] [address] Dr. Juan Argueta Platelet mean volume (Bld) [Entitic vol] 9.5 fL Normal 9.5-13.5 [facility] Comment on above: Performed By: #### C MP, T4, TSH #### [facility] [address] [place] [address] Dr. Juan Argueta PLT 244 103/ul Normal 150-450 [facility] Comment on above: Performed By: #### C MP, T4, TSH #### [facility] [address] [place] [address] Dr. Juan Argueta RBC 5.45 106/ul Normal 4.70-6.10 [facility] Comment on above: Performed By: #### C MP, T4, TSH #### [facility] [address] [place] [address] Dr. Juan Argueta WBC 5.1 103/ul Normal 4.0-11.0 [facility] Comment on above: Performed By: #### C MP, T4, TSH #### [facility] [address] [place] [address] Dr. Juan Argueta GLYCOHEMOGLOBIN A1Con 2022 ADA RECOMMENDATION SEE BELOW Normal [facility] Comment on above: Result Comment: ADA RECOMMENDED LIMIT 4.0 - 6.0 ADA THERAPEUTIC TARGET < 7.0 ACTION SUGGESTED > 7.0 Performed By: #### C MP, T4, TSH #### [facility] [address] [place] [address] Dr. Juan Argueta Glucose [Mass/Vol] 100 mg/dL Normal [facility] Comment on above: Performed By: #### C MP, T4, TSH #### [facility] [address] [place] [address] Dr. Juan Argueta HbA1c (Bld) [Mass fraction] 5.1 % Normal 4.5-6.2 [facility] Comment on above: Performed By: #### C MP, T4, TSH #### [facility] [address] [place] [address] Dr. Juan Argueta PROF 14(COMP METB)on 023 Albumin [Mass/Vol] 4.2 g/dL Normal 3.4-5.0 [facility] Comment on above: Performed By: #### C MP, T4, TSH #### [facility] [address] [place] [address] Dr. Juan Argueta Albumin/Globulin [Mass ratio] 1.0 {ratio} Normal [facility] Comment on above: Performed By: #### C MP, T4, TSH #### [facility] [address] [place] [address] Dr. Juan Argueta ALP [Catalytic activity/Vol] 152 U/L Critically high 46-116 [facility] Comment on above: Performed By: #### C MP, T4, TSH #### [facility] [address] [place] [address] Dr. Juan Argueta ALT [Catalytic activity/Vol] 34 U/L Normal 16-63 [facility] Comment on above: Performed By: #### C MP, T4, TSH #### [facility] [address] [place] [address] Dr. Juan Argueta Anion gap [Moles/Vol] 12.0 mmol/L Normal [facility] Comment on above: Performed By: #### C MP, T4, TSH #### [facility] [address] [address] [address] Juan Argueta AST [Catalytic activity/Vol] 31 U/L Normal 15-37 [facility] Comment on above: Performed By: #### C MP, T4, TSH #### [facility] [address] [place] [address] Dr. Juan Argueta Bilirubin [Mass/Vol] 0.2 mg/dL Normal 0.2-1.0 [facility] Comment on above: Performed By: #### C MP, T4, TSH #### [facility] [address] [place] [address] Dr. Juan Argueta Calcium [Mass/Vol] 9.4 mg/dL Normal 8.5-10.1 [facility] Comment on above: Performed By: #### C MP, T4, TSH #### [facility] [address] [place] [address] Dr. Juan Argueta Chloride [Moles/Vol] 104 mmol/L Normal 98-107 [facility] Comment on above: Performed By: #### C MP, T4, TSH #### [facility] [address] [place] [address] Dr. Juan Argueta CO2 [Moles/Vol] 26.5 mmol/L Normal 21.0-32.[address] [facility] Comment on above: Performed By: #### C MP, T4, TSH #### [facility] [address] [place] [address] Dr. Juan Argueta Creatinine [Mass/Vol] 1.60 mg/dL Critically high 0.70-1.30 [facility] Comment on above: Performed By: #### C MP, T4, TSH #### [facility] [address] [place] [address] Dr. Juan Argueta EGFR-AF BAHAMIAN >60 Normal >=60 [facility] Comment on above: Performed By: #### C MP, T4, TSH #### [facility] [address] [place] [address] Dr. Juan Argueta EGFR-NON AF BAHAMIAN 51 mL/min/1.73m2 Critically low >=60 [facility] Comment on above: Performed By: #### C MP, T4, TSH #### [facility] [address] [address] [address] Juan Argueta Globulin (S) [Mass/Vol] 4.1 g/dL Normal [facility] Comment on above: Performed By: #### C MP, T4, TSH #### [facility] [address] [address] [address] Juan Argueta Glucose [Mass/Vol] 95 mg/dL Normal 74-106 [facility] Comment on above: Performed By: #### C MP, T4, TSH #### [facility] [address] [place] [address] Dr. Juan Argueta Potassium [Moles/Vol] 4.5 mmol/L Normal 3.5-5.1 [facility] Comment on above: Performed By: #### C MP, T4, TSH #### [facility] [address] [place] [address] Dr. Juan Argueta Protein [Mass/Vol] 8.3 g/dL Critically high 6.4-8.2 [facility] Comment on above: Performed By: #### C MP, T4, TSH #### [facility] [address] [place] [address] Dr. Juan Argueta Sodium [Moles/Vol] 138 mmol/L Normal 136-145 [facility] Comment on above: Performed By: #### C MP, T4, TSH #### [facility] [address] [place] [address] Dr. Juan Argueta Urea nitrogen [Mass/Vol] 22.0 mg/dL Critically high 7.0-18.0 [facility] Comment on above: Performed By: #### C MP, T4, TSH #### [facility] [address] [place] [address] Dr. Juan Argueta Urea nitrogen/Creatinine [Mass ratio] 13.8 mg/mg [facility] Comment on above: Performed By: #### C MP, T4, TSH #### [facility] [address] [place] [address] Dr. Juan Argueta T4on 01-18-2023 T4 [Mass/Vol] 3.20 ug/dL Critically low 4.50-12.10 [facility] Comment on above: Performed By: #### C MP, T4, TSH #### [facility] [address] [address] [address] Juan Argueta TSHon 01-18-2023 TSH 2.037 uIU/mL Normal 0.358-3.740 [facility] Comment on above: Performed By: #### C MP, T4, TSH #### [facility] [address] [address] [address] Juan Argueta US THYROIDon 01-04-2023 US THYROID EXAMINATION: US THYROID HISTORY: Thyroid nodule COMPARISON: No relevant comparison available. FINDINGS: RIGHT LOBE: Normal size and echotexture. Lobe size: 5.2 x 1.3 x 1.6 cm LEFT LOBE: Normal size and echotexture. Lobe size: 3.8 x 1.2 x 1.8 cm ISTHMUS: Normal size and echotexture. Thickness: 3 mm IMPRESSION: 1. Normal thyroid ultrasound. Electronically authenticated by: LUIS FERMIN Date: 2023-01-04 15:52 Normal [facility] OSMOLALITYon 10-06-2022 Osmolality [Osmolality] 307 mosm/kg Critically high 275-295 [facility] Comment on above: Performed By: #### C MP, T4, TSH #### [facility] [address] [address] [address] Juan Argueta T3, TOTAL (TRIIODOTHYRONINE) on 10-05-2022 T3, TOTAL 52 ng/dL Critically low 71-180 [facility] Comment on above: Performed By: #### C MP, T4, TSH #### [facility] [address] [address] [address] Juan Argueta GLYCOHEMOGLOBIN A1Con 2021 ADA RECOMMENDATION SEE BELOW Normal [facility] Comment on above: Result Comment: ADA RECOMMENDED LIMIT 4.0 - 6.0 ADA THERAPEUTIC TARGET < 7.0 ACTION SUGGESTED > 7.0 Performed By: #### C MP, T4, TSH #### [facility] [address] [address] [address] Juan Argueta Glucose [Mass/Vol] 105 mg/dL Normal [facility] Comment on above: Performed By: #### C MP, T4, TSH #### [facility] [address] [place] [address] Dr. Juan Argueta HbA1c (Bld) [Mass fraction] 5.3 % Normal 4.5-6.2 [facility] Comment on above: Performed By: #### C MP, T4, TSH #### [facility] [address] [place] [address] Dr. Juan Argueta PROF 14(COMP METB)on 022 Albumin [Mass/Vol] 4.2 g/dL Normal 3.4-5.0 [facility] Comment on above: Performed By: #### T SH, CMP #### [facility] [address] [place] [address] Dr. Juan Argueta Albumin/Globulin [Mass ratio] 1.1 {ratio} Normal [facility] Comment on above: Performed By: #### T SH, CMP #### [facility] [address] [place] [address] Dr. Juan Argueta ALP [Catalytic activity/Vol] 122 U/L Critically high 46-116 [facility] Comment on above: Performed By: #### T SH, CMP #### [facility] [address] [place] [address] Dr. Juan Argueta ALT [Catalytic activity/Vol] 53 U/L Normal 16-63 [facility] Comment on above: Performed By: #### T SH, CMP #### [facility] [address] [place] [address] Dr. Juan Argueta Anion gap [Moles/Vol] 12.4 mmol/L Normal [facility] Comment on above: Performed By: #### T SH, CMP #### [facility] [address] [place] [address] Dr. Juan Argueta AST [Catalytic activity/Vol] 22 U/L Normal 15-37 [facility] Comment on above: Performed By: #### T SH, CMP #### [facility] [address] [place] [address] Dr. Juan Argueta Bilirubin [Mass/Vol] 0.2 mg/dL Normal 0.2-1.0 [facility] Comment on above: Performed By: #### T SH, CMP #### [facility] [address] [address] [address] Juan Argueta Calcium [Mass/Vol] 9.6 mg/dL Normal 8.5-10.1 [facility] Comment on above: Performed By: #### T SH, CMP #### [facility] [address] [address] [address] Juan Argueta Chloride [Moles/Vol] 108 mmol/L Critically high 98-107 [facility] Comment on above: Performed By: #### T SH, CMP #### [facility] [address] [place] [address] Dr. Juan Argueta CO2 [Moles/Vol] 28.8 mmol/L Normal 21.0-32.[address] [facility] Comment on above: Performed By: #### T SH, CMP #### [facility] [address] [address] [address] Juan Argueta Creatinine [Mass/Vol] 1.77 mg/dL Critically high 0.70-1.30 [facility] Comment on above: Performed By: #### T SH, CMP #### [facility] [address] [place] [address] Dr. Juan Argueta EGFR-AF BAHAMIAN 55 mL/min/1.73m2 Critically low >=60 [facility] Comment on above: Performed By: #### T SH, CMP #### [facility] [address] [address] [address] Juan Argueta EGFR-NON AF BAHAMIAN 45 mL/min/1.73m2 Critically low >=60 [facility] Comment on above: Performed By: #### T SH, CMP #### [facility] [address] [address] [address] Juan Argueta Globulin (S) [Mass/Vol] 3.7 g/dL Normal [facility] Comment on above: Performed By: #### T SH, CMP #### [facility] [address] [address] [address] Juan Argueta Glucose [Mass/Vol] 94 mg/dL Normal 74-106 [facility] Comment on above: Performed By: #### T SH, CMP #### [facility] [address] [address] [address] Juan Argueta Potassium [Moles/Vol] 4.2 mmol/L Normal 3.5-5.1 [facility] Comment on above: Performed By: #### T SH, CMP #### [facility] [address] [place] [address] Dr. Juan Argueta Protein [Mass/Vol] 7.9 g/dL Normal 6.4-8.2 [facility] Comment on above: Performed By: #### T SH, CMP #### [facility] [address] [place] [address] Dr. Juan Argueta Sodium [Moles/Vol] 145 mmol/L Normal 136-145 [facility] Comment on above: Performed By: #### T SH, CMP #### [facility] [address] [place] [address] Dr. Juan Argueta Urea nitrogen [Mass/Vol] 28.0 mg/dL Critically high 7.0-18.0 [facility] Comment on above: Performed By: #### T SH, CMP #### [facility] [address] [place] [address] Dr. Juan Argueta Urea nitrogen/Creatinine [Mass ratio] 15.8 mg/mg Normal [facility] Comment on above: Performed By: #### T SH, CMP #### [facility] [address] [place] [address] Dr. Juan Argueta TSHon 10-04-2022 TSH 1.456 uIU/mL Normal 0.358-3.740 [facility] Comment on above: Performed By: #### T SH, CMP #### [facility] [address] [place] [address] Dr. Juan Argueta VITAMIN D 25 OHon 10-04-2022 VIT D 25-OH 51.1 ng/mL Normal [facility] Comment on above: Performed By: #### C MP, T4, TSH #### [facility] [address] [place], [place] [address] Dr. Juan Argueta VIT D RANGES SEE BELOW [facility] Comment on above: Result Comment: <20 ng/mL Vit D deficient 20 - <30 ng/mL Vit D insufficient 30 - 100 ng/mL Vit D sufficient >100 ng/mL Potential Toxicity Performed By: #### C MP, T4, TSH #### [facility] [address] [place], [place] [address] Dr. Juan Argueta Follow Up (Endocrinology)on 09-30-2022 Follow Up (Endocrinology) Diagnoses/Problems Assessed Low vitamin D level (790.6) (R79.89) Hypothyroidism (244.9) (E03.9) Hypocalcemia (275.41) (E83.51) Multinodular goiter (241.1) (E04.2) Orders Hypocalcemia, Hypothyroidism, Low vitamin D level, Multinodular goiter Comprehensive Metabolic Panel; Status:Active; Requested for:30Sep2022; Perform:Lab Services - Lab To Draw (Blood Test); Due:[id number];Ordered ; For:Hypocalcemia, Hypothyroidism, Low vitamin D level, Multinodular goiter; Ordered By:Erin Ogden; Hemoglobin A1C; Status:Active; Requested for:30Sep2022; Perform:Lab Services - Lab To Draw (Blood Test); Due:[id number];Ordered ; For:Hypocalcemia, Hypothyroidism, Low vitamin D level, Multinodular goiter; Ordered By:Erin Ogden; Osmolality, Serum; Status:Active; Requested for:30Sep2022; Perform:Lab Services - Lab To Draw (Blood Test); Due:[id number];Ordered ; For:Hypocalcemia, Hypothyroidism, Low vitamin D level, Multinodular goiter; Ordered By:Erin Ogden; Osmolality, Urine Spot; Status:Active; Requested for:30Sep2022; Perform:Lab Services - Lab To Draw (Non-Blood Test); Due:[id number];Ordered ; For:Hypocalcemia, Hypothyroidism, Low vitamin D level, Multinodular goiter; Ordered By:Erin Ogden; TSH WITH REFLEX TO FREE T4 IF ABNORMAL; Status:Active; Requested for:30Sep2022; Perform:Lab Services - Lab To Draw (Blood Test); Due:[id number];Ordered ; For:Hypocalcemia, Hypothyroidism, Low vitamin D level, Multinodular goiter; Ordered By:Erin Ogden; Ultrasound Thyroid; Status:Hold For - Scheduling; Requested for:30Sep2022; Perform: Radiology Services Imaging; Due:[id number];Ordered ; For:Hypocalcemia, Hypothyroidism, Low vitamin D level, Multinodular goiter; Ordered By:Erin Ogden; Radiologist to Determine Optimal Study : Y What are the patient's signs and symptoms? : f/u Vitamin D 25-Hydroxy; Status:Active; Requested for:30Sep2022; Perform:Lab Services - Lab To Draw (Blood Test); Due:[id number];Ordered ; For:Hypocalcemia, Hypothyroidism, Low vitamin D level, Multinodular goiter; Ordered By:Erin Ogden; Patient Discussion/Summary we will call you with labs Provider Impressions 32 yo male with severe mental retardation, autism, bipolar disorder,severe psychosis,GERD, HTN , hypercalcemia likely 2/2 [facility] with exacerbation by lithium intake (that has been taking since ), hypothyroidism with goiter bilateral thyroid cysts, with normal BMD. 1- MNG goiter repeat USG,was done and repeat USG showed bilateral thyroid cysts and all subcentimeter stable . no changes on exam. USG in 2016 reviewed no suspicious lesion, has some swelling, recheck USG , weight loss has stopped, TFT normal. recheck TFT , urine osm and vitamin D and aclcium, lithium was stopped recently no acute issues 2-Hypothyroidism: On Lt 4 50 mcg q day clinically euthyroid, weight loss has stopped ,labs normal. 3- history of hypercalcemia : Last Calcium level was normal PTH normal, vitamin D normal,we will check again 4- weight loss: has stopped, saw GI lip ulcer has healed. Chief Complaint An interactive audio and video telecommunication system which permits real time communications between the patient (at the originating site) and provider (at the distant site) was utilized to provide this telehealth service. Verbal consent was requested and obtained from MARKEL [place] on this date, 09/30/2022 11:00 AM , for a telehealth visit. Follow up visit regarding his thyroid, calcium levels, and low vitamin d levels. History of Present D[age]dyjin3 yo male with severe mental retardation, autism, bipolar disorder,severe psychosis,GERD, HTN , hypercalcemia [facility] 2/2 [facility] with exacerbation by lithium intake (that has been taking since ), hypothyroidism with goiter and bilateral thyroid cysts , with BMD on 08/24 with no evidence of osteoporosis or osteopenia (normal findings) as per caregiver, no new issue or complaints , last calcium 10.7 no acute issues, no more weight loss, nurses told me he feels fine no acute issues. on Lt4 50 mcgq day no sign of hypothyroidism. No kidney stones, no falls, he drinks around 40 ounces of fluids/water per day. He sometimes skips meals for a whole day , then eats a day after. not on Quail 300 mg , did not changed since last visit as per sheet . guardian is brother Yogesh nb [phone] seeing GI , EGD was fine. no acute issues. is losing weight again , had a lip biopsy and infected ulcer is healed, weight loss has stopped, on Lt4 50 mcgq day and we need recent albs, slightly more agitated , had a fall with bruise on his face , [place] physician is following. no changes in neuro exam. TSH was normal on labs , , calcium and sodium normal, no acute issues, weight loss is resolved appetite better. USG in 2016 no suspicious lesion no choking or hoarseness, he seemed fine on the video today he is non verbal. no behavioral issues. lithuim is not on medication list. ordered labs no acu (more content not included)... Normal [employer] CBC AUTO DIFFon 09-20-2022 BASO # 0.1 103/ul Normal 0.0-0.1 [facility] Comment on above: Performed By: #### C MP, T4, TSH #### [facility] [address] [place], [place] [address] Dr. Juan Argueta Basophils/100 WBC (Bld) 1.2 % Normal 0.2-2.0 [facility] Comment on above: Performed By: #### C MP, T4, TSH #### [facility] [address] [place] [address] Dr. Juan Argueta EO # 0.2 103/ul Normal 0.0-0.7 [facility] Comment on above: Performed By: #### C MP, T4, TSH #### [facility] [address] [place] [address] Dr. Juan Argueta Eosinophils/100 WBC (Bld) 5.0 % Normal 0.9-7.0 [facility] Comment on above: Performed By: #### C MP, T4, TSH #### [facility] [address] [place] [address] Dr. Juan Argueta Erythrocyte distribution width (RBC) [Ratio] 12.8 % Normal 11.0-15.0 [facility] Comment on above: Performed By: #### C MP, T4, TSH #### [facility] [address] [place] [address] Dr. Juan Argueta Hematocrit (Bld) [Volume fraction] 42.0 % Normal 42.0-54.0 [facility] Comment on above: Performed By: #### C MP, T4, TSH #### [facility] [address] [place] [address] Dr. Juan Argueta Hemoglobin (Bld) [Mass/Vol] 14.0 g/dL Normal 14.0-18.0 [facility] Comment on above: Performed By: #### C MP, T4, TSH #### [facility] [address] [place] [address] Dr. Juan Argueta IG # 0.01 10e3/ul Normal 0.00-0.03 [facility] Comment on above: Performed By: #### C MP, T4, TSH #### [facility] [address] [place] [address] Dr. Juan Argueta IG % 0.2 % Normal 0.0-0.5 [facility] Comment on above: Performed By: #### C MP, T4, TSH #### [facility] [address] [place] [address] Dr. Juan Argueta LYMPH # 1.5 103/ul Normal 1.2-3.8 [facility] Comment on above: Performed By: #### C MP, T4, TSH #### [facility] [address] [place] [address] Dr. Juan Argueta Lymphocytes/100 WBC (Bld) 34.9 % Normal 20.5-60.0 [facility] Comment on above: Performed By: #### C MP, T4, TSH #### [facility] [address] [place] [address] Dr. Juan Argueta MANUAL DIFF REQ NO Normal [facility] Comment on above: Performed By: #### C MP, T4, TSH #### [facility] [address] [place] [address] Dr. Juan Argueta MCH (RBC) [Entitic mass] 29.0 pg Normal 25.9-34.0 [facility] Comment on above: Performed By: #### C MP, T4, TSH #### [facility] [address] [place] [address] Dr. Juan Argueta MCHC (RBC) [Mass/Vol] 33.3 g/dL Normal 29.9-35.2 [facility] Comment on above: Performed By: #### C MP, T4, TSH #### [facility] [address] [place] [address] Dr. Juan Argueta MCV (RBC) [Entitic vol] 87.0 fL Normal 80.0-94.0 [facility] Comment on above: Performed By: #### C MP, T4, TSH #### [facility] [address] [place] [address] Dr. Juan Argueta MONO # 0.3 103/ul Normal 0.3-0.8 [facility] Comment on above: Performed By: #### C MP, T4, TSH #### [facility] [address] [place] [address] Dr. Juan Argueta Monocytes/100 WBC (Bld) 6.8 % Normal 1.7-12.0 [facility] Comment on above: Performed By: #### C MP, T4, TSH #### [facility] [address] [place] [address] Dr. Juan Argueta NEUT # 2.2 103/ul Normal 1.4-6.5 [facility] Comment on above: Performed By: #### C MP, T4, TSH #### [facility] [address] [place] [address] Dr. Juan Argueta Neutrophils/100 WBC (Bld) 51.9 % Normal 43.0-75.0 [facility] Comment on above: Performed By: #### C MP, T4, TSH #### [facility] [address] [place] [address] Dr. Juan Argueta Platelet mean volume (Bld) [Entitic vol] 10.1 fL Normal 9.5-13.5 [facility] Comment on above: Performed By: #### C MP, T4, TSH #### [facility] [address] [place] [address] Dr. Juan Argueta PLT 252 103/ul Normal 150-450 [facility] Comment on above: Performed By: #### C MP, T4, TSH #### [facility] [address] [place] [address] Dr. Juan Argueta RBC 4.83 106/ul Normal 4.70-6.10 [facility] Comment on above: Performed By: #### C MP, T4, TSH #### [facility] [address] [place] [address] Dr. Juan Argueta WBC 4.2 103/ul Normal 4.0-11.0 [facility] Comment on above: Performed By: #### C MP, T4, TSH #### [facility] [address] [place] [address] Dr. Juan Argueta FREE T4on 09-20-2022 Free T4 [Mass/Vol] 0.50 ng/dL Critically low 0.76-1.46 [facility] Comment on above: Performed By: #### B 12FOL, FT4 #### [facility] [address] [place] [address] Dr. Juan Argueta PROF 14(COMP METB)on 022 Albumin [Mass/Vol] 4.1 g/dL Normal 3.4-5.0 [facility] Comment on above: Performed By: #### C MP, T4, TSH #### [facility] [address] [address] [address] Juan Argueta Albumin/Globulin [Mass ratio] 1.1 {ratio} Normal [facility] Comment on above: Performed By: #### C MP, T4, TSH #### [facility] [address] [address] [address] Juan Argueta ALP [Catalytic activity/Vol] 107 U/L Normal 46-116 [facility] Comment on above: Performed By: #### C MP, T4, TSH #### [facility] [address] [place] [address] Dr. Juan Argueta ALT [Catalytic activity/Vol] 79 U/L Critically high 16-63 [facility] Comment on above: Performed By: #### C MP, T4, TSH #### [facility] [address] [address] [address] Juan Argueta Anion gap [Moles/Vol] 8.4 mmol/L Normal [facility] Comment on above: Performed By: #### C MP, T4, TSH #### [facility] [address] [place] [address] Dr. Juan Argueta AST [Catalytic activity/Vol] 32 U/L Normal 15-37 [facility] Comment on above: Performed By: #### C MP, T4, TSH #### [facility] [address] [address] [address] Juan Argueta Bilirubin [Mass/Vol] 0.2 mg/dL Normal 0.2-1.0 [facility] Comment on above: Performed By: #### C MP, T4, TSH #### [facility] [address] [place] [address] Dr. Juan Argueta Calcium [Mass/Vol] 9.2 mg/dL Normal 8.5-10.1 [facility] Comment on above: Performed By: #### C MP, T4, TSH #### [facility] [address] [place] [address] Dr. Juan Argueta Chloride [Moles/Vol] 104 mmol/L Normal 98-107 [facility] Comment on above: Performed By: #### C MP, T4, TSH #### [facility] [address] [place] [address] Dr. Juan Argueta CO2 [Moles/Vol] 30.2 mmol/L Normal 21.0-32.[address] [facility] Comment on above: Performed By: #### C MP, T4, TSH #### [facility] [address] [place] [address] Dr. Juan Argueta Creatinine [Mass/Vol] 1.67 mg/dL Critically high 0.70-1.30 [facility] Comment on above: Performed By: #### C MP, T4, TSH #### [facility] [address] [place] [address] Dr. Juan Argueta EGFR-AF BAHAMIAN 58 mL/min/1.73m2 Critically low >=60 [facility] Comment on above: Performed By: #### C MP, T4, TSH #### [facility] [address] [place] [address] Dr. Juan Argueta EGFR-NON AF BAHAMIAN 48 mL/min/1.73m2 Critically low >=60 [facility] Comment on above: Performed By: #### C MP, T4, TSH #### [facility] [address] [place] [address] Dr. Juan Argueta Globulin (S) [Mass/Vol] 3.6 g/dL Normal [facility] Comment on above: Performed By: #### C MP, T4, TSH #### [facility] [address] [place] [address] Dr. Juan Argueta Glucose [Mass/Vol] 94 mg/dL Normal 74-106 [facility] Comment on above: Performed By: #### C MP, T4, TSH #### [facility] [address] [place] [address] Dr. Juan Argueta Potassium [Moles/Vol] 4.6 mmol/L Normal 3.5-5.1 [facility] Comment on above: Performed By: #### C MP, T4, TSH #### [facility] [address] [place] [address] Dr. Juan Argueta Protein [Mass/Vol] 7.7 g/dL Normal 6.4-8.2 [facility] Comment on above: Performed By: #### C MP, T4, TSH #### [facility] [address] [place] [address] Dr. Juan Argueta Sodium [Moles/Vol] 138 mmol/L Normal 136-145 [facility] Comment on above: Performed By: #### C MP, T4, TSH #### [facility] [address] [place] [address] Dr. Juan Argueta Urea nitrogen [Mass/Vol] 28.0 mg/dL Critically high 7.0-18.0 [facility] Comment on above: Performed By: #### C MP, T4, TSH #### [facility] [address] [place] [address] Dr. Juan Argueta Urea nitrogen/Creatinine [Mass ratio] 16.8 mg/mg Normal [facility] Comment on above: Performed By: #### C MP, T4, TSH #### [facility] [address] [place] [address] Dr. Juan Argueta TSHon 09-20-2022 TSH 1.895 uIU/mL Normal 0.358-3.740 [facility] Comment on above: Performed By: #### C MP, T4, TSH #### [facility] [address] [place] [address] Dr. Juan Argueta VIT B12 AND FOLATEon 022 Cobalamin (Vitamin B12) [Mass/Vol] 350.0 pg/mL Normal 193.0-986.0 [facility] Comment on above: Performed By: #### B 12FOL, FT4 #### [facility] [address] [place] [address] Dr. Juan Argueta FOLATE 16.40 ng/mL Normal 8.60-58.90 [facility] Comment on above: Performed By: #### B 12FOL, FT4 #### [facility] [address] [place] [address] Dr. Juan Argueta VITAMIN D 25 OHon 09-20-2022 VIT D 25-OH 49.9 ng/mL Normal [facility] Comment on above: Performed By: #### V ITAD #### [facility] [address] [place] [address] Dr. Juan Argueta VIT D RANGES SEE BELOW Normal [facility] Comment on above: Result Comment: <20 ng/mL Vit D deficient 20 - <30 ng/mL Vit D insufficient 30 - 100 ng/mL Vit D sufficient >100 ng/mL Potential Toxicity Performed By: #### V ITAD #### [facility] [address] [place] [address] Dr. Juan Argueta CBC AUTO DIFFon 09-10-2022 BASO # 0.0 103/ul Normal 0.0-0.1 [facility] Comment on above: Performed By: #### C BC #### [facility] [address] [place] [address] Dr. Juan Argueta Basophils/100 WBC (Bld) 0.3 % Normal 0.2-2.0 [facility] Comment on above: Performed By: #### C BC #### [facility] [address] [place] [address] Dr. Juan Argueta EO # 0.1 103/ul Normal 0.0-0.7 [facility] Comment on above: Performed By: #### C BC #### [facility] [address] [place] [address] Dr. Juan Argueta Eosinophils/100 WBC (Bld) 1.5 % Normal 0.9-7.0 [facility] Comment on above: Performed By: #### C BC #### [facility] [address] [place] [address] Dr. Juan Argueta Erythrocyte distribution width (RBC) [Ratio] 12.8 % Normal 11.0-15.0 [facility] Comment on above: Performed By: #### C BC #### [facility] [address] [place] [address] Dr. Juan Argueta Hematocrit (Bld) [Volume fraction] 38.6 % Critically low 42.0-54.0 [facility] Comment on above: Performed By: #### C BC #### [facility] [address] [address] [address] Juan Argueta Hemoglobin (Bld) [Mass/Vol] 13.2 g/dL Critically low 14.0-18.0 [facility] Comment on above: Performed By: #### C BC #### [facility] [address] [address] [address] Juan Argueta IG # 0.02 10e3/ul Normal 0.00-0.03 [facility] Comment on above: Performed By: #### C BC #### [facility] [address] [place] [address] Dr. Juan Argueta IG % 0.2 % Normal 0.0-0.5 [facility] Comment on above: Performed By: #### C BC #### [facility] [address] [place] [address] Dr. Juan Argueta LYMPH # 0.9 103/ul Critically low 1.2-3.8 [facility] Comment on above: Performed By: #### C BC #### [facility] [address] [place] [address] Dr. Juan Argueta Lymphocytes/100 WBC (Bld) 10.0 % Critically low 20.5-60.0 [facility] Comment on above: Performed By: #### C BC #### [facility] [address] [place] [address] Dr. Juan Argueta MANUAL DIFF REQ NO Normal [facility] Comment on above: Performed By: #### C BC #### [facility] [address] [place] [address] Dr. Juan Argueta MCH (RBC) [Entitic mass] 29.2 pg Normal 25.9-34.0 [facility] Comment on above: Performed By: #### C BC #### [facility] [address] [place] [address] Dr. Juan Argueta MCHC (RBC) [Mass/Vol] 34.2 g/dL Normal 29.9-35.2 [facility] Comment on above: Performed By: #### C BC #### [facility] [address] [address] [address] Juan Argueta MCV (RBC) [Entitic vol] 85.4 fL Normal 80.0-94.0 [facility] Comment on above: Performed By: #### C BC #### [facility] [address] [address] [address] Juan Argueta MONO # 0.5 103/ul Normal 0.3-0.8 [facility] Comment on above: Performed By: #### C BC #### [facility] [address] [address] [address] Juan Argueta Monocytes/100 WBC (Bld) 5.3 % Normal 1.7-12.0 [facility] Comment on above: Performed By: #### C BC #### [facility] [address] [address] [address] Juan Argueta NEUT # 7.4 103/ul Critically high 1.4-6.5 [facility] Comment on above: Performed By: #### C BC #### [facility] [address] [address] [address] Juan Argueta Neutrophils/100 WBC (Bld) 82.7 % Critically high 43.0-75.0 [facility] Comment on above: Performed By: #### C BC #### [facility] [address] [address] [address] Juan Argueta Platelet mean volume (Bld) [Entitic vol] 9.8 fL Normal 9.5-13.5 [facility] Comment on above: Performed By: #### C BC #### [facility] [address] [address] [address] Juan Argueta PLT 226 103/ul Normal 150-450 [facility] Comment on above: Performed By: #### C BC #### [facility] [address] [address] [address] Juan Argueta RBC 4.52 106/ul Critically low 4.70-6.10 [facility] Comment on above: Performed By: #### C BC #### [facility] [address] [place] [address] Dr. Juan Argueta WBC 8.9 103/ul Normal 4.0-11.0 [facility] Comment on above: Performed By: #### C BC #### [facility] [address] [place] [address] HEAD WO CONon 09-10-2022 CT HEAD WO CON EXAM: CT HEAD WO CON CLINICAL INDICATION: UNSPECIFIED INJURY OF HEAD, INITIAL ENCOUNTER COMPARISON: CT head 07/19/2022 TECHNIQUE: Axial CT images of the brain were obtained without contrast. Coronal and sagittal reformats were obtained. Dose reduction techniques were achieved by using automated exposure control and/or adjustment of mA and/or kV according to patient size and/or use of iterative reconstruction technique. FINDINGS: No intracranial hemorrhage, extra-axial fluid collection, hydrocephalus, midline shift, or acute infarction. No other mass effect. Patent basal cisterns. No calvarial fracture. Normal soft tissues. Paranasal sinuses and mastoid air cells are well-aerated. IMPRESSION: No acute intracranial process. No substantial change since 07/19/2022. Electronically authenticated by: JON PARKS Date: 2022-09-10 12:09 Normal [facility] PROF 14(COMP METB)on 022 Albumin [Mass/Vol] 4.1 g/dL Normal 3.4-5.0 [facility] Comment on above: Performed By: #### C MP #### [facility] [address] [place] [address] Dr. Juan Argueta Albumin/Globulin [Mass ratio] 1.2 {ratio} Normal [facility] Comment on above: Performed By: #### C MP #### [facility] [address] [place] [address] Dr. Juan Argueta ALP [Catalytic activity/Vol] 100 U/L Normal 46-116 [facility] Comment on above: Performed By: #### C MP #### [facility] [address] [place] [address] Dr. Juan Argueta ALT [Catalytic activity/Vol] 39 U/L Normal 16-63 [facility] Comment on above: Performed By: #### C MP #### [facility] [address] [address] [address] Juan Argueta Anion gap [Moles/Vol] 16.5 mmol/L Normal [facility] Comment on above: Performed By: #### C MP #### [facility] [address] [address] [address] Juan Argueta AST [Catalytic activity/Vol] 35 U/L Normal 15-37 [facility] Comment on above: Performed By: #### C MP #### [facility] [address] [address] [address] Juan Argueta Bilirubin [Mass/Vol] 0.3 mg/dL Normal 0.2-1.0 [facility] Comment on above: Performed By: #### C MP #### [facility] [address] [address] [address] Juan Argueta Calcium [Mass/Vol] 8.2 mg/dL Critically low 8.5-10.1 [facility] Comment on above: Performed By: #### C MP #### [facility] [address] [address] [address] Juan Argueta Chloride [Moles/Vol] 101 mmol/L Normal 98-107 [facility] Comment on above: Performed By: #### C MP #### [facility] [address] [address] [address] Juan Argueta CO2 [Moles/Vol] 18.8 mmol/L Critically low 21.0-32.0 [facility] Comment on above: Performed By: #### C MP #### [facility] [address] [address] [address] Juan Argueta Creatinine [Mass/Vol] 1.37 mg/dL Critically high 0.70-1.30 [facility] Comment on above: Performed By: #### C MP #### [facility] [address] [address] [address] Juan Argueta EGFR-AF BAHAMIAN >60 Normal >=[address] [facility] Comment on above: Performed By: #### C MP #### [facility] [address] [place] [address] Dr. Juan Argueta EGFR-NON AF BAHAMIAN >60 Normal >=60 [facility] Comment on above: Performed By: #### C MP #### [facility] [address] [address] [address] Juan Argueta Globulin (S) [Mass/Vol] 3.3 g/dL Normal [facility] Comment on above: Performed By: #### C MP #### [facility] [address] [address] [address] Juan Argueta Glucose [Mass/Vol] 103 mg/dL Normal 74-106 [facility] Comment on above: Performed By: #### C MP #### [facility] [address] [place] [address] Dr. Juan Argueta Potassium [Moles/Vol] 4.3 mmol/L Normal 3.5-5.1 [facility] Comment on above: Performed By: #### C MP #### [facility] [address] [place] [address] Dr. Juan Argueta Protein [Mass/Vol] 7.4 g/dL Normal 6.4-8.2 [facility] Comment on above: Performed By: #### C MP #### [facility] [address] [place] [address] Dr. Juan Argueta Sodium [Moles/Vol] 132 mmol/L Critically low 136-145 [facility] Comment on above: Performed By: #### C MP #### [facility] [address] [place] [address] Dr. Juan Argueta Urea nitrogen [Mass/Vol] 23.0 mg/dL Critically high 7.0-18.0 [facility] Comment on above: Performed By: #### C MP #### [facility] [address] [place] [address] Dr. Juan Argueta Urea nitrogen/Creatinine [Mass ratio] 16.8 mg/mg Normal [facility] Comment on above: Performed By: #### C MP #### [facility] [address] [place] [address] HEAD WO CONon 07-19-2022 CT HEAD WO CON EXAMINATION: CT HEAD WO CON HISTORY: HEADACHE COMPARISON: 12/02/2019. TECHNIQUE: CT examination of the head without IV contrast. Dose reduction techniques were achieved by using automated exposure control and/or adjustment of mA and/or kV according to patient size and/or use of iterative reconstruction technique. FINDINGS: Slight degradation of image quality from motion artifact. The ventricles and sulci are within normal limits in size and configuration for age. There is no evidence for acute intracranial hemorrhage. There are no foci of abnormal parenchymal attenuation. There is no mass effect or midline shift. There are no abnormal extraaxial fluid collections. IMPRESSION: Negative for acute intracranial hemorrhage or acute intracranial process. No hydrocephalus or mass effect. 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) (E83.52,T50.905A) Orders 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, Hypocalcemia, Hypothyroidism, Low vitamin D level, Serum calcium elevated Vitamin D 25-Hydroxy; Status:Active; Requested for:25Mar2022; Perform:Lab Services - Lab To Draw (Blood Test); Due:[id number];Ordered ; For: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, Hypocalcemia, Hypothyroidism, Low vitamin D level, Serum calcium elevated; Ordered By:Erin Ogden; Hypocalcemia, Low vitamin D level TSH - Thyroid Stimulating Hormone, Serum; Status:Active; Requested for:25Mar2022; Perform:Lab Services - Lab To Draw (Blood Test); Due:23Jun2022; Last Updated By:Bree Whiting; 03/25/2022 10:42:01 AM;Ordered; For:Hypocalcemia, Low vitamin D level; Ordered By:Erin Ogden; Hypothyroidism T4 - Free Thyroxine, Serum; Status:Need Information - ABN Disposition; Requested for:25Mar2022; Perform:Lab Services - Lab To Draw (Blood Test); Due:23Jun2022; Last Updated By:Bree Whiting; 03/25/2022 10:42:01 AM;Ordered; For:Hypothyroidism; Ordered By:Erin Ogden; Hypothyroidism, Low vitamin D level Comprehensive Metabolic Panel; Status:Active; Requested for:25Mar2022; Perform:Lab Services - Lab To Draw (Blood Test); Due:23Jun2022;Ordered ; For:Hypothyroidism, Low vitamin D level; Ordered By:Erin Ogden; Hemoglobin A1C; Status:Active; Requested for:25Mar2022; Perform:Lab Services - Lab To Draw (Blood Test); Due:23Jun2022;Ordered ; For:Hypothyroidism, Low vitamin D level; Ordered By:Erin Ogden; T4 - Free Thyroxine, Serum; Status:Active; Requested for:25Mar2022; Perform:Lab Services - Lab To Draw (Blood Test); Due:23Jun2022;Ordered ; For:Hypothyroidism, Low vitamin D level; Ordered By:Erin Ogden; Triiodothyronine, Level (T3); Status:Active; Requested for:25Mar2022; Perform:Lab Services - Lab To Draw (Blood Test); Due:23Jun2022;Ordered ; For:Hypothyroidism, Low vitamin D level; Ordered By:Erin Ogden; TSH - Thyroid Stimulating Hormone, Serum; Status:Active; Requested for:25Mar2022; Perform:Lab Services - Lab To Draw (Blood Test); Due:23Jun2022;Ordered ; For:Hypothyroidism, Low vitamin D level; Ordered By:Erin Ogden; Patient Discussion/Summary we will call you with labs Provider Impressions 31 yo male with severe mental retardation, autism, bipolar disorder,severe psychosis,GERD, HTN , hypercalcemia likely 2/2 [facility] with exacerbation by lithium intake (that has been taking since ), hypothyroidism with goiter bilateral thyroid cysts, with normal BMD. 1- MNG goiter repeat USG,was done and repeat USG showed bilateral thyroid cysts and all subcentimeter stable . no changes on exam. USG in 2016 reviewed no suspicious lesion, no need for further follow up, w eight loss has stopped, TFT normal. 2-Hypothyroidism: On Lt 4 50 mcg q day clinically euthyroid, weight loss has stopped ,labs normal. 3- history of hypercalcemia : Last Calcium level was normal PTH normal, vitamin D normal,we will check again 4- weight loss: has stopped, saw GI lip ulcer has healed. Chief Complaint An interactive audio and video telecommunication system which permits real time communications between the patient (at the originating site) and provider (at the distant site) was utilized to provide this telehealth service. Verbal consent was requested and obtained from MARKEL LI on this date, 03/25/2022 10:00 AM , for a telehealth visit. Patient presents for a follow up visit hypothyrpidism and hypercalcemia History of Present [id number] yo male with severe mental retardation, autism, bipolar disorder,severe psychosis,GERD, HTN , hypercalcemia [facility] 12/15 [facility] with exacerbation by lithium intake (that has been taking since ), hypothyroidism with goiter and bilateral thyroid cysts , with BMD on 08/24 with no evidence of osteoporosis or osteopenia (normal findings) as per caregiver, no new issue or complaints , last calcium 10.7 no acute issues, no more weight loss, nurses told me he feels fine no acute issues. on Lt4 50 mcgq day no sign of hypothyroidism. No kidney stones, no falls, he drinks around 40 ounces of fluids/water per day. He sometimes skips meals for a whole day , then eats a day after. not on Quail 300 mg , did not changed since last visit as per sheet . guardian is brother Yogesh nb [phone] seeing GI , EGD was fine. no acute issues. is losing weight again , had a lip biopsy and infected ulcer is healed, weight loss has stopped, on Lt4 50 mcgq day and we need recent albs, slightly more agitated , had a fall with bruise on his face , [place] physician is following. no changes in neuro exam. TSH was normal on labs , , calcium and sodium normal, no acute issues (more content not included)... Normal [employer] XR MODIFIED BARIUM SWALLOWon 09-11-2020 No radiographic evidence of tracheal aspiration. For further information as well as dietary recommendations, please refer to the speech pathologist's detailed report. [employer] Workstation ID: [id number] [facility] EXAMINATION: XR MODIFIED BARIUM SWALLOW HISTORY: Dx: R13.13 (Pharyngeal dysphagia) COMPARISON: None. TECHNIQUE: Videofluoroscopic swallowing examination was performed in conjunction with the speech pathology department. Various substances were used to assess swallowing including puree, cookie. The patient refused the thin barium contrast. FINDINGS: Fluoroscopy time: 1 minute and 5 seconds. There is normal bolus formation and cohesion. The epiglottic movement is within normal limits. The laryngeal elevation is within normal limits. There is no evidence of penetration or tracheal aspiration. [facility] Interface, [employer] Speechq - 09/11/2020 10:03 PM EDT EXAMINATION: XR MODIFIED BARIUM SWALLOW HISTORY: Dx: R13.13 (Pharyngeal dysphagia) COMPARISON: None. TECHNIQUE: Videofluoroscopic swallowing examination was performed in conjunction with the speech pathology department. Various substances were used to assess swallowing including puree, cookie. The patient refused the thin barium contrast. FINDINGS: Fluoroscopy time: 1 minute and 5 seconds. There is normal bolus formation and cohesion. The epiglottic movement is within normal limits. The laryngeal elevation is within normal limits. There is no evidence of penetration or tracheal aspiration. IMPRESSION: No radiographic evidence of tracheal aspiration. For further information as well as dietary recommendations, please refer to the speech pathologist's detailed report. [employer] Workstation ID: [id number] [facility] XR MODIFIED BARIUM SWALLOW EXAMINATION: XR MODIFIED BARIUM SWALLOW HISTORY: Dx: R13.13 (Pharyngeal dysphagia) COMPARISON: None. TECHNIQUE: Videofluoroscopic swallowing examination was performed in conjunction with the speech pathology department. Various substances were used to assess swallowing including puree, cookie. The patient refused the thin barium contrast. FINDINGS: Fluoroscopy time: 1 minute and 5 seconds. There is normal bolus formation and cohesion. The epiglottic movement is within normal limits. The laryngeal elevation is within normal limits. There is no evidence of penetration or tracheal aspiration. IMPRESSION: No radiographic evidence of tracheal aspiration. For further information as well as dietary recommendations, please refer to the speech pathologist's detailed report. [employer] Workstation ID: [id number] Dictated by: BRANDAN CERVANTES on MonSep 11, 2020 2:10:21 PM EDT Transcribed by: BONIFACIO IBARRA on MonSep 11, 2020 2:53:24 PM EDT Finalized by: BRANDAN CERVANTES on MonSep 11, 2020 10:00:[address] [facility] Comment on above: Order Comment: Miriam hung Injury/Trauma or Illness?:Illness/Other How long have you had these symptoms (acute/chronic)?:Chronic Reason for exam?:Pharyngeal dysphagia Type of Exam?:Ongoing Additional signs and symptoms?:Pharyngeal dysphagia Fluoro time in minutes:1.05 Fluoro dose in mGy?:36.08 COVID-19, MOLECULARon 2019 SARS-COV-2 (CEPHEID) Not Detected Normal Not Detected [facility] Comment on above: Result Comment: This test was performed under the FDA's Emergency Use Authorization (EUA). Testing was performed using the Xpert Xpress SARS-CoV-2 Cepheid assay on the [employer] Dx platform. This test has not been approved for use in asymptomatic patients and its performance in this patient population has not been evaluated. Negative results do not rule out the presence of SARS-CoV-2/COVID-19. Fact sheets for this EUA can be found at the following links: For Healthcare Providers: https://www.fda.gov/media/442639/download For Patients: https://www.fda.gov/media/894107/download Performed By: #### L [id number] #### [facility] [address] [place] [address] Rustam Morillo M.D. [id number] CT ABDOMEN PELVIS W IV CONTR Vicky 08-09-2019 CT ABDOMEN PELVIS W IV CONTRAST EXAMINATION: CT OF THE ABDOMEN AND PELVIS WITH CONTRAST 08/09/2019 10:33 am TECHNIQUE: CT of the abdomen and pelvis was performed with the administration of intravenous contrast. Multiplanar reformatted images are provided for review. Dose modulation, iterative reconstruction, and/or weight based adjustment of the mA/kV was utilized to reduce the radiation dose to as low as reasonably achievable. COMPARISON: None. HISTORY: ORDERING SYSTEM PROVIDED HISTORY: Constipation, unspecified constipation type TECHNOLOGIST PROVIDED HISTORY: Reason for Exam: patient has not been tolerating eating for quite some time Acuity: Unknown Type of Exam: Unknown FINDINGS: Lower Chest: The lung bases are clear. No pericardial effusion or pleural effusion is identified. Organs: No enhancing mass identified within the liver or spleen. No pancreatic mass or peripancreatic inflammatory process. The adrenal glands appear unremarkable. The gallbladder appears unremarkable as well. No cholelithiasis is identified. Benign cyst noted within the right kidney measuring approximately 1 cm in size. No hydronephrosis is identified. No ureteral calculi are seen. No CT findings to suggest recently passed stone. GI/Bowel: There is a large volume of stool seen within the colon. The appendix appears normal. No focal colonic wall thickening is identified. No ileus or obstruction is identified. The visualized small bowel loops appear unremarkable. No significant terminal ileal thickening is identified. No pericolonic inflammatory changes are identified. Pelvis: No pelvic mass is identified. The bladder is moderately distended, with questionable trabeculation noted. No intraluminal mass is identified. Compression upon the bladder related to colorectal distention noted with a large stool burden. Peritoneum/Retroperit oneum: No abdominal aortic aneurysm is identified. No retroperitoneal or mesenteric lymphadenopathy is identified. Bones/Soft Tissues: No acute subcutaneous soft tissue abnormality is identified. No acute osseous abnormality is identified. No osseous destructive changes are seen. IMPRESSION: Large volume of stool throughout the colon consistent with history of constipation. No pericolonic inflammatory changes or point of obstruction identified. The bladder is moderately distended with questionable underlying trabeculation which can be seen in the setting of a neurogenic bladder. No intraluminal mass is identified. Interpreted by: Grabiel Aleman MD Signed by: Grabiel Aleman MD 08/09/19 Final result Normal [facility] Surgical Pathologyon 10-17-2 018 Surgical Pathology (NOTE) [id number] [place] [address] SURGICAL PATHOLOGY REPORT Patient Name: MARKEL LI MR#: [id number] Specimen #[id number] Final Diagnosis SPECIMEN A : SMALL BOWEL, BIOPSIES: FRAGMENTS OF SMALL BOWEL MUCOSA WITH WELL-PRESERVED VILLI NEGATIVE FOR ACUTE OR GRANULOMATOUS INFLAMMATION, INCREASE IN INTRAEPITHELIAL LYMPHOCYTES, DYSPLASIA OR MALIGNANCY SPECIMEN B : STOMACH, BIOPSIES: GASTRIC ANTRAL MUCOSA WITHOUT SIGNIFICANT PATHOLOGIC FINDINGS NEGATIVE FOR INTESTINAL METAPLASIA, DYSPLASIA OR MALIGNANCY Livier Quiroga M.D. Electronically Signed Out 08/30/2018 Clinical Information GERD, constipation, weight loss; EGD biopsy; colonoscopy, hemorrhoids; formalin time: R=[id number], D=[id number] Source: A: Small bowel biopsies B: Gastric biopsies Gross Description Specimen A : Received in formalin, in a container, labelled with the patient's name, identifiers and small bowel biopsies are three fragments (0.4 x 0.3 x 0.2 cm in aggregate) of robins soft tissue. The specimen is entirely submitted in one cassette. Specimen B : Received in formalin, in a container, labelled with the patient's name, identifiers and gastric biopsies are two fragments (0.2 x 0.2 x 0.1 cm and 0.3 x 0.2 x 0.1 cm) of robins soft tissue. The specimen is entirely submitted in one cassette. Microscopic Description Specimen A : Two slides with RUBEN stained material are examined. Microscopic examination confirms the final pathologic diagnosis. Specimen B : Two slides with RUBEN stained material are examined. Microscopic examination confirms the final pathologic diagnosis. Normal [facility] Comment on above: Performed By: #### P PPES #### [facility] [address] [place] [address] Vital Signs Date Time Vital Sign Value Performing Clinician Faci lity 11-15-2023 10:44-0500 Body height 182.9 cm Bree Whiting MD Work Phone: [facility] 11-15-2023 10:44-0500 Body mass index (BMI) [Ratio] 27.67 kg/m2 Bree Whiting MD Work Phone: [facility] 11-15-2023 10:44-0500 Body weight 92.53 kg Bree Whiting MD Work Phone: [facility] 10-02-2023 15:17-0500 Body temperature 96.8 [degF] Tyrese Alexander DDS Work Phone: [facility] 10-02-2023 15:17-0500 Diastolic blood pressure 91 mm[Hg] Tyrese Alexander DDS Work Phone: [facility] 10-02-2023 15:17-0500 Heart rate 58 /min Tyrese Alexander DDS Work Phone: [employer] 10-02-2023 15:17-0500 Respiratory rate 22 /min Tyrese Alexander DDS Work Phone: [employer] 10-02-2023 15:17-0500 SaO2% (BldA) [Mass fraction] 100 % Tyrese Alexander DDS Work Phone: [employer] 10-02-2023 15:17-0500 Systolic blood pressure 141 mm[Hg] Tyrese Alexander DDS Work Phone: [employer] 10-02-2023 11:35-0500 Body height 177.8 cm Tyrese Alexander DDS Work Phone: [employer] 10-02-2023 11:35-0500 Body mass index (BMI) [Ratio] 29.27 kg/m2 Tyrese Alexander DDS Work Phone: [employer] 10-02-2023 11:35-0500 Body weight 92.53 kg Tyrese Alexander DDS Work Phone: [employer] 09-15-2023 15:07-0400 Body height 179 cm Bola Claire MD Work Phone: [employer] 09-15-2023 15:07-0400 Body mass index (BMI) [Ratio] 28.97 kg/m2 Bola Claire MD Work Phone: [employer] 09-15-2023 15:07-0400 Body temperature 97.7 [degF] Bola Claire MD Work Phone: [employer] 09-15-2023 15:07-0400 Body weight 92.81 kg Bola Claire MD Work Phone: [employer] 09-15-2023 15:07-0400 Diastolic blood pressure 72 mm[Hg] [facility] 09-15-2023 15:07-0400 Heart rate 58 /min Bola Claire MD [facility] 09-15-2023 15:07-0400 Respiratory rate 32 /min Bola Claire MD [facility] 09-15-2023 15:07-0400 SaO2% (BldA) [Mass fraction] 99 % Bola Claire MD [facility] 09-15-2023 15:07-0400 Systolic blood pressure 112 mm[Hg] Bola Claire MD [facility] 03-20-2019 12:52-0400 BMI (Body Mass Index) 22.24 kg/m2 Erin Harveyhi HH-Ltobkmjctxwpv-TAH [place] [address] Work Phone: 03-20-2019 12:52-0400 Body weight 74.39 kg Erin Pan HE-Cfuacyllksexp-DXB [place] [address] Work Phone: 03-20-2019 12:52-0400 BP Diastolic 72 mm[Hg] Erin Harveyhi BC-Mwcsgigttybce-JZU [place] [address] Work Phone: 03-20-2019 12:52-0400 BP Systolic 103 mm[Hg] Erin Harveyhi HN-Qzmmbscdfzdnx-GWA [place] [address] Work Phone: 03-20-2019 12:52-0400 BSA (Body Surface Area) 1.96 m2 Erin Harveyhi GU-Oxyypvhnwjkbd-AKN [place] [address] Work Phone: 03-20-2019 12:52-0400 Height 182.88 cm Erin Pan AP-Lnjfelweztspl-HIG [place] [address] Work Phone: 03-20-2019 12:52-0400 Pulse (Heart Rate) 62 /min Erin Harveyhi LP-Hppdsmkvdvaft-JOI [place] [address] Work Phone: 03-20-2019 12:52-0400 Pulse Oximetry 100 % Erin Davenportollaelizabeth IH-Lxkjpygpzhreg-ORD [place] [address] Work Phone: 03-20-2019 12:52-0400 Respiratory Rate 14 /min Erin Davenportollaelizabeth KY-Skxxknbifhhtz-FRC [place] [address] Work Phone: Encounters Encounter Date Encounter Type Care Provider Facility Start: 05-15-2024 End: 05-15-2024 ambulatory [facility] Start: 12-15-2023 End: 12-16-2023 ambulatory [facility] Start: 11-15-2023 End: 11-15-2023 ambulatory [facility] Start: 11-15-2023 End: 11-15-2023 Office outpatient visit 25 minutes Bree Whiting MD Work Phone: [facility] [place] Comment on above: Hypercalcemia (Prima ry Dx); Hypothyroidism, unspecified type Start: 10-02-2023 End: 10-02-2023 ambulatory TYRESE ALEXANDER Facility:[facility] Start: 10-02-2023 End: 10-02-2023 Subsequent hospital visit by physician Tyrese Alexander DDS Work Phone: [facility] Start: 10-02-2023 End: 10-03-2023 ambulatory UNKNOWN PROVIDER Facility:[facility] Start: 10-02-2023 End: 10-03-2023 Patient encounter procedure Tyrese Alexander DDS Work Phone: [facility] Start: 09-27-2023 Telephone encounter Cheri mercado RN [facility] Pre Surgical Evaluation Start: 09-19-2023 Telephone encounter Lina rubin RN [facility] Pre [facility] Comment on above: Pre-surgical Evaluat ion (Informed Consent & Anesthesia consent obtained) Start: 09-15-2023 Encounter for other preprocedural examination UNKNOWN PROVIDER [facility] Start: 09-15-2023 End: 09-15-2023 ambulatory UNKNOWN PROVIDER Facility:[facility] Start: 09-15-2023 End: 09-15-2023 Patient encounter procedure Pse Anesthesia [facility] Pre [facility] Comment on above: Pre-op evaluation (P rimary Dx) Start: 09-15-2023 Admission to [facility] Ramu Singh Marciomaru DDS Work Phone: [facility] Start: 09-15-2023 End: 09-15-2023 Office outpatient visit 25 minutes Bola Claire MD Work Phone: [facility] Comment on above: Pre-op exam (Primary Dx); Body mass index (BMI) 28.0-28.9, adult Start: 09-15-2023 End: 09-15-2023 Preprocedural examination done Bola Claire MD Work Phone: [facility] Work Phone: Start: 08-18-2023 Admission to [facility] Carline Mcfarland DDS Work Phone: [facility] Start: 03-14-2023 ambulatory Erin Pan Facility:[id number] Start: 01-18-2023 End: 01-19-[address] RALEIGH EPPS Facility:[facility]1 Start: 01-04-2023 End: 01-05-[address] RALEIGH EPPS Facility:[facility] Start: 10-04-2022 End: 10-05-[address] DOCTOR MULLER Facility:[facility] Start: 09-30-2022 Office outpatient vi sit 15 minutes Sai Batres Work Phone: [facility] Work Phone: Start: 09-30-2022 ambulatory Erin Pan Facility:[id number] Start: 09-20-2022 End: 09-21-[address] RALEIGH EPPS Facility:[facility]1 Start: 09-10-2022 End: 09-10-[address] WES Soni Facility:[facility] Start: 07-19-2022 End: 07-19-[address] RALEIGH EPPS Facility:[facility]1 Start: 03-25-2022 ambulatory Erin Pan Facility:[id number] Start: 03-16-2022 End: 03-21-2022 Patient encounter procedure Viry Ortiz RDH Work Phone: [facility] Start: 03-07-2022 End: 03-07-2022 ambulatory JAYDE NUNEZ . Facility:[facility]1 Start: 09-11-2020 End: 09-12-2020 Patient encounter procedure [facility] Start: 09-11-2020 End: 09-11-2020 Subsequent hospital visit by physician Raleigh Epps Work Phone: [facility] Comment on above: Pharyngeal dysphagia Start: 09-07-2020 End: 09-07-2020 Patient encounter procedure [facility] Start: 08-09-2019 End: 08-12-2019 Patient encounter procedure [facility] Start: 03-20-2019 Patient encounter procedure Erin Duke Nematollahi PA-Tjfafokhgbakf-MVY [place] [address] Work Phone: Start: 11-21-2018 Patient encounter procedure Erinalva Wall Nematollahi JB-Szvmfhkmctkyn-AJU [place] [address] Work Phone: Start: 08-29-2018 End: 08-29-2018 Patient encounter procedure [facility] Start: 08-15-2018 Patient encounter procedure Erinalva Wall Nematollahi GN-Yyrhoyoqlumob-VJI [place] [address] Work Phone: Start: 03-16-2018 Patient encounter procedure Erin Duke Nematollahi VE-Ilpipubqkkfpo-VKA [place] [address] Work Phone: Start: 11-17-2017 Patient encounter procedure Erin Duke Nematollahi BK-Lvpppfestfyjs-KAX [place] [address] Work Phone: Start: 05-26-2017 Patient encounter procedure Erin Duke Nematollahi LB-Itswbkgstzqoz-MKO [place] [address] Work Phone: Procedures Date Procedure Procedure Detail Performing Clinician Start: 11-15-2023 CALCIUM, IONIZED MARGAR SIGIFREDO HENOK Start: 11-15-2023 Hepatic function 200 0 panel - Serum or Plasma BREE WHITING Start: 11-15-2023 Thyrotropin [Units/v olume] in Serum or Plasma BREE WHITING Start: 11-15-2023 THYROXINE, FREE ROLAND WHITING Start: 11-15-2023 VITAMIN D 1,25 DIHYDROXY BREE WHITING Start: 11-15-2023 RENAL FUNCTION PANEL EROS WHITING Start: 11-15-2023 PTH, INTACT BREE WHITING Start: 09-15-2023 Blood count complete automated Bloa Claire MD Work Phone: Start: 09-11-2020 Videofluoroscopy swallow External Transcribed Start: 08-09-2019 Ct abdomen & pelvis w/contrast material ISAM PASCUAL Start: 03-20-2019 TSH WITH REFLEX TO F REE T4 IF ABNORMAL Erin Pan Start: 08-29-2018 DISCHARGE PATIENT ISANAHI GARNER Start: 08-29-2018 SURGICAL PATHOLOGY ISAM DAVIDOUL Start: 08-29-2018 Level i surg patholo gy gross examination only ISAM PASCUAL Start: 08-29-2018 BEDREST ISANAHI DAO L Start: 08-29-2018 Continuous pulse oximetry ISAM DABOUL Start: 08-29-2018 ENCOURAGE DEEP BREAT YUN AND COUGHING ISAM DABOUL Start: 08-29-2018 INITIATE OXYGEN THER APY PROTOCOL ISAM DAVIDOUL Start: 08-29-2018 NOTIFY PHYSICIAN (SPECIFY) ISANAHI DAVIDOUL Start: 08-29-2018 NURSING COMMUNICATION I REY DAVIDKENNEDY Start: 08-29-2018 VITAL SIGNS ISAM DAVIDOU L Start: 08-29-2018 INSERT PERIPHERAL IV IS AM DABOUL Start: 08-15-2018 Thyrotropin [Units/v olume] in Serum or Plasma Bree Whiting MD Work Phone: Plan of Treatment Date Care Activity Detail Author Start: 2041 Shingles (RZV) Vacci ne (1 of 2) Shingles (RZV) Vaccine (1 of 2) [facility] Start: 2041 Zoster Vaccines (1 o f 2) Zoster Vaccines (1 of 2) [facility] Start: 03-07-2032 DTaP/Tdap/Td Vaccine s (9 - Td or Tdap) DTaP/Tdap/Td Vaccines (9 - Td or Tdap) [facility] Start: 11-15-2026 Tetanus vaccination Met [facility] Start: 09-15-2024 Creatinine measurement Basic Metabol ic [facility] Start: 05-15-2024 End: 05-15-2024 Patient encounter procedure 05/15/2024 11:40 AM EDT Office Visit [facility] [place] [address] [place] [address] [place] [address] Department of [place] [address] [facility] [place] Start: 11-15-2023 End: 11-15-2024 Calcitriol [Mass/volume] in Serum or Plasma Vitamin D 1,25 Dihydroxy (for eval of hypercalcemia) Lab Routine Hypercalcemia Expected: 11/15/2023, Expires: 11/15/2024 [facility] Work Phone: Comment on above: Expected: 11/15/2023 , Expires: 11/15/2024 Start: 11-15-2023 End: 11-15-2024 Calcium.ionized [Moles/volume] in Blood Calcium, Ionized Lab Routine Hypercalcemia Expected: 11/15/2023, Expires: 11/15/2024 [facility] Work Phone: Comment on above: Expected: 11/15/2023 , Expires: 11/15/2024 Start: 11-15-2023 End: 11-15-2024 Hepatic function 2000 panel - Serum or Plasma Hepatic Function Panel Lab Routine Hypercalcemia Expected: 11/15/2023, Expires: 11/15/2024 [facility] Work Phone: Comment on above: Expected: 11/15/2023 , Expires: 11/15/2024 Start: 11-15-2023 End: 11-15-2024 Parathyrin.intact [Mass/volume] in Serum or Plasma Parathyroid Hormone, Intact Lab Routine Hypercalcemia Expected: 11/15/2023, Expires: 11/15/2024 [facility] Work Phone: Comment on above: Expected: 11/15/2023 , Expires: 11/15/2024 Start: 11-15-2023 End: 11-15-2024 Renal function 2000 panel - Serum or Plasma Renal Function Panel Lab Routine Hypercalcemia Expected: 11/15/2023, Expires: 11/15/2024 [facility] Work Phone: Comment on above: Expected: 11/15/2023 , Expires: 11/15/2024 Start: 11-15-2023 End: 11-15-2024 Thyrotropin [Units/volume] in Serum or Plasma Thyroid Stimulating Hormone Lab Routine Hypothyroidism, unspecified type Expected: 11/15/2023, Expires: 11/15/2024 [facility] Work Phone: Comment on above: Expected: 11/15/2023 , Expires: 11/15/2024 Start: 11-15-2023 End: 11-15-2024 Thyroxine (T4) free [Mass/volume] in Serum or Plasma Thyroxine, Free Lab Routine Hypothyroidism, unspecified type Expected: 11/15/2023, Expires: 11/15/2024 [facility] Work Phone: Comment on above: Expected: 11/15/2023 , Expires: 11/15/2024 Start: 10-02-2023 End: 10-02-2023 [facility] Routine scheduled Caries 10/02/2023 1:10 PM EST [facility] Start: 10-02-2023 End: 10-02-2023 Admission to same day surgery center 10/02/2023 11:24 AM EST - 10/02/2023 1:21 PM EST Surgery [facility] [address] [place] [address] Tyrese Alexander, DDS [address] [place] [address] [facility] Comment on above: [facility] Start: 10-02-2023 End: 10-02-2023 D[facility]AL RESTORATIONS D[facility]AL RESTORATIONS Routine scheduled Caries 10/02/2023 11:24 AM EST [facility] Start: 10-02-2023 End: 10-02-2023 Admission to same day surgery center 10/02/2023 7:30 AM EST - 10/02/2023 9:27 AM EST Surgery [facility] [address] [place] [id number] Tyrese Alexander, DDS [address] [place] [id number] [facility] Comment on above: [facility] Start: 10-02-2023 End: 10-02-2023 D[facility]AL RESTORATIONS D[facility]AL RESTORATIONS Routine scheduled Caries 10/02/2023 7:30 AM EST [facility] Start: 10-02-2023 Subsequent hospital visit by physician [facility] Start: 10-02-2023 End: 10-02-2023 Patient encounter procedure [facility] Start: 09-15-2023 End: 09-15-2023 Patient encounter procedure 09/15/2023 2:00 PM EDT Office Visit [facility] [address] [place] [address] Bola Claire MD [address] [place] [address] [facility] Start: 07-14-2023 COVID-19 Vaccine ( season) COVID-19 Vaccine ( season) [facility] Start: 07-14-2023 Influenza vaccination Influenza Vacc ine (#1) [facility] Start: 02-09-2021 COVID-19 Vaccine (3 - Pfizer series) COVID-19 Vaccine (3 - Pfizer series) [facility] Start: 07-14-2020 Influenza vaccinatio n given Sequential Influenza Vaccine (#1) [facility] Start: 08-15-2019 Thyroid stimulating hormone measurement TSH Level [facility] Start: 2018 HPV Vaccine (optiona l start 27-45 years) HPV Vaccine (optional start 27-45 years) [facility] Start: 07-14-2013 Annual wellness visit Annual W ellness Visit ([id number]) [facility] Start: 10-28-2009 Varicella vaccination Varicell a Vaccines (1 of 2 - 2-dose childhood series) [facility] Start: 2009 Hepatitis C antibody , confirmatory test Hepatitis C Screening [facility] Start: 2009 [facility]atitis C screening [facility] Start: 2006 HIV screening [facility] Start: 1994 History and physical examination, annual for health maintenance Wellness Visit [facility] Start: 1991 Basic metabolic 2000 panel - Serum or Plasma Basic Metabolic Panel [facility] Start: 1991 Creatinine measurement Basic Metabol ic Panel [facility] Start: 1991 Hepatitis B Vaccines (1 of 3 - 3-dose series) Hepatitis B Vaccines (1 of 3 - 3-dose series) [facility] Start: 1991 HIV screening HIV Screening [facility] Start: 1991 Lipid panel Lipid Panel [facility] Start: 1991 Medicare Annual Wellness Visit Medicare Annual Wellness Visit (AWV) [facility] Start: 1991 Tetanus vaccination Tetanus: Every 1 0yrs [facility] Start: 1991 Thyroid stimulating hormone measurement TSH [facility] End: 09-15-2024 Basic metabolic 2000 panel - Serum or Plasma BASIC METABOLIC PANEL Lab Routine Pre-op exam 1 Occurrences starting 09/15/2023 until 09/15/2024 [facility] Work Phone: Comment on above: 1 Occurrences starti ng 09/15/2023 until 09/15/2024 CBC panel - Blood by Automated count COMPLETE BLOOD COUNT Lab Routine Pre-op exam Ordered: 09/15/2023 [facility] Comment on above: Ordered: 09/15/2023 D[facility]AL RESTORATIONS DENTAL FRANKLY[place] RATIONS Routine scheduled Caries [facility] Immunizations Immunization Date Immunization Notes Care Provider [place] 03-07-2022 diphtheria, tetanus toxoids and pertussis vaccine Viry Ortiz [facility] Work Phone: [facility] 09-08-2021 influenza, injectabl e, quadrivalent, preservative free Viry Angel RD Work Phone: [facility] 09-08-2021 influenza virus vaccine, unspecified formulation Carline Greenwood Bruna DDS Work Phone: [facility] 12-15-2020 Pfizer SARS-COV-2 (COVID-19) vaccine, age 12+ yrs, mRNA, spike protein, LNP, preservative free, 30 mcg/0.3mL dose ([id number]) Viry Angel RD Work Phone: [facility] 11-24-2020 Pfizer SARS-COV-2 (COVID-19) vaccine, age 12+ yrs, mRNA, spike protein, LNP, preservative free, 30 mcg/0.3mL dose (WBI=351) Viry Angel RD Work Phone: [facility] 08-27-2020 influenza, injectabl e, quadrivalent, preservative free Viry Angel RD Work Phone: [facility] 08-22-2018 influenza, injectabl e, quadrivalent, contains preservative Viry Angel RD Work Phone: [facility] Work Phone: 09-06-2017 influenza, injectabl e, quadrivalent, contains preservative Viry Angel RD Work Phone: [facility] 11-15-2016 tetanus toxoid, redu danika diphtheria toxoid, and acellular pertussis vaccine, adsorbed [facility] Comment on above: Series: 09-03-2015 influenza, injectabl e, quadrivalent, preservative free Viry Angel RD Work Phone: [facility] 09-30-2009 novel [id number], preservative-free, injectable Viry Angel RDH Work Phone: [facility] 09-04-2008 influenza virus vaccine, whole virus Viry Gutierrezrillo RD Work Phone: [facility] 08-29-2007 influenza, seasonal, injectable Viry Angel RD Work Phone: [facility] 03-29-2007 meningococcal polysaccharide (groups A, C, Y and W-135) diphtheria toxoid conjugate vaccine (MCV4P) Viry Angel [facility] Work Phone: [facility] 09-29-2006 tetanus toxoid, redu danika diphtheria toxoid, and acellular pertussis vaccine, adsorbed Viry Angel [facility] Work Phone: [facility] 09-12-2006 influenza, seasonal, injectable Viry Angel RD Work Phone: [facility] 06-25-2003 measles, mumps and rubella virus vaccine Viry Angel [facility] Work Phone: [facility] 09-25-1996 diphtheria, tetanus toxoids and pertussis vaccine Viry Angel [facility] Work Phone: [facility] 09-25-1996 poliovirus vaccine, inactivated Viry Angel [facility] Work Phone: [facility] 02-05-1993 diphtheria, tetanus toxoids and pertussis vaccine Viry Angel RD Work Phone: [facility] 11-23-1992 haemophilus influenz ae type b vaccine, conjugate unspecified formulation Viry Angel [facility] Work Phone: [facility] 11-23-1992 measles, mumps and rubella virus vaccine Viry Angel RD Work Phone: [facility] 10-02-1992 poliovirus vaccine, inactivated Viry Angel RD Work Phone: [facility] 02-03-1992 diphtheria, tetanus toxoids and pertussis vaccine Viry Angel RD Work Phone: [facility] 02-03-1992 haemophilus influenz ae type b vaccine, conjugate unspecified formulation Viry Angel RD Work Phone: [facility] 1991 diphtheria, tetanus toxoids and pertussis vaccine Viry Angel RD Work Phone: [facility] 1991 haemophilus influenz ae type b vaccine, conjugate unspecified formulation Viry Angel RD Work Phone: [facility] 1991 trivalent poliovirus vaccine, live, oral Viry Angel RD Work Phone: [facility] 1991 diphtheria, tetanus toxoids and pertussis vaccine Viry Angel RD Work Phone: [facility] 1991 haemophilus influenz ae type b vaccine, conjugate unspecified formulation Viry Angel [facility] Work Phone: [facility] 1991 trivalent poliovirus vaccine, live, oral Viry Angel [facility] Work Phone: [facility] Payers Date Payer Category Payer Unknown 2023 Unknown [id number] 2020 Medicaid MEDICAID [facility] [id number] 2020-Present [id number] 2016 Medicare [id number] 2012 Medicare MEDICARE MEDICAR E PART A & B [id number] 2012-Present [address] [place] [address] Medicare [id number] 2010 Medicaid [id number] 1991 Unknown [id number] 1991 Unknown [id number] 1991 Unknown [id number] 1991 Unknown [id number] 1991 Unknown [id number] 1991 Unknown [id number] 1991 Unknown [id number] 1991 Unknown [id number] 1991 Unknown [id number] 1991 Unknown [id number] 1991 Unknown [id number] 1990 Unknown [id number] 1991 Unknown [id number] 1991 Unknown [id number] 1991 Unknown [id number] 1991 Unknown [id number] 1991 Unknown [id number] 1991 Unknown [id number] 1991 Unknown [id number] 1991 Unknown [id number] 1958 Medicaid [id number] 1958 Medicare [id number] Social History Date Type Detail Facility Tobacco smoking status NHIS Unknown if ever smoked EV-Vsuwyzicjfhkl-DLG [place] [address] Work Phone: Start: 1990 Sex Assigned At Not on file [facility] Exposure to SARS-CoV-2 (event) Not sure [facility] Start: 12-07-2017 Tobacco smoking status GAIS Never smoked tobacco [facility] Start: 12-07-2017 Tobacco use and exposure Smokeless tobacco non-user [facility] Never smoker Never smoker [facility] Work Phone: Gender identity Not on file [facility] Tobacco smoking status GAIS Tobacco smoking consumption unknown [facility] Work Phone: Start: 11-05-2023 End: 11-15-2023 Exposure to SARS-CoV-2 (event) Yes [facility] NEGATED: Highlighted row - - W[place]-Yhrqgocxwfkkn-KZA [facility] Work Phone: Functional Status Date Assessment Result Facility NEGATED: Highlighted row Functional performance Functional status health issues are not documented Disease MS-Qlssrhijczrcx-HZ C [place] [facility] Work Phone: Mental Status Date Assessment Result Facility NEGATED: Highlighted row Cognitive function [Interpretation] Cognitive status health issues are not documented Disease WB-Anbikdomrazwt-KY [facility] Work Phone: Clinical Notes 03-16-2022 to 11-15-2023 Salvador Cruz MD - 11/15/2023 9:40 AM ESTPatient InstructionsDischarge InstructionsAttachmentsBrief Operative Note - LabRosas Robledo DDS - 10/02/2023 1:49 PM ESTPatient Instructions Note Date & Type Note Facility 11-15-2023 History of Present illness Narrative Images from the original note were not included. Markel Li is a 33 M PMH: autism, bipolar on lithium since 1998, psychosis, GERD, HTN who was previously seeing Dr. Wall ans is currently following up for calcium levels , MNG, and hypothyroidism 1) MNG Had serial ultrasounds in the past per report last ultrasound was 2015. Heterogenous thyroid with multiple bilateral subcentimeter cysts - Continue to monitor for dysphagia , no need for repeat U/S at this time. 2) Hypercalcemia- resolved-->Hypocalcemia HyperCa Presumed to be 2/2 FHH with component of lithium side effect Currently off lithium Last coca 8.3(01/2023) -increase vitamin D to 5000 units daily -calcium 500mg (elemental ca) twice a day with meals 3) Hypothyroidism Currently on Levothyroxine replacement 50 mcg daily . Continue the same but change time of adminstration to 6 am. hold other meds at least 30 min after. - Obtain labs- PTH, 1.25 [place] vitamin D, ionized calcium , Lft, vitamin D , pth, rfp, tsh , ft4, RTC in 6 months Case seen, examined, and discussed with Dr. Whiting ----- Hpi Markel Li is a 33 y.o. 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 Interval History - Pt was last seen by Dr. Wall on 03/2023 . He is accoumpanied by a behavioral help from [facility] . He states that the patient has been in good spirits with no violent outbursts. Sleep is good. No issues with bowel abnormalities. No cold or heat intolerance. Wt and appetitie is stable. No polyuria . No fractures recently or difficulty swallowing . He is taking levothyroxine at 4 pm in the afternoon and not from other meds. He not on Quail 300 mg anymore but is on oxecarbamzaepine Reportedly normal BMD on 08/2012 with no evidence of osteoporosis or osteopenia (normal findings). Last PTH 2018- 30.8 For hypothyroidism he is on Lt4 50 mcgq day. Currently no sign of hypothyroidism. Labs TSH 1.45 in 01/2023 T4 ref range 4.5-12 Imaging Last thyroid ultrasound 04/2016 No current outpatient medications on file prior to visit. No current facility-administered medications on file prior to visit. Past Medical History: Diagnosis Date Hypercalcemia 07/05/2013 Hypercalcemia Hyperglycemia, unspecified 04/26/2016 Acute hyperglycemia Hypothyroidism, unspecified 09/30/2022 Hypothyroidism No family history on file. Social History Socioeconomic History Marital status: Single Spouse name: Not on file Number of children: Not on file Years of education: Not on file Highest education level: Not on file Occupational History Not on file Tobacco Use Smoking status: Not on file Smokeless tobacco: Not on file Substance and Sexual Activity Alcohol use: Not on file Drug use: Not on file Sexual activity: Not on file Other Topics Concern Not on file Social History Narrative Not on file Social Determinants of Health Financial Resource Strain: Not on file Food Insecurity: Not on file Transportation Needs: Not on file Physical Activity: Not on file Stress: Not on file Social Connections: Not on file Intimate Partner Violence: Not on file Housing Stability: Not on file ROS reviewed and is negative except for pertinent findings noted on HPI Physical Exam PE: Constitutional: NAD, Mute and non verbal. Non aggressive Skin/Hair: Warm, dry skin. Dried blood over fingers HEENT: EOMI, Anicteric scleras . Thyroid gland non enlarged. Non tender to palpation Neck: Soft, supple Cardiovascular: normal HR Respiratory: no increased wob, accessory muscle use. Abdomen - soft , nondistended Psych : appropriate affect labs and imaging reviewed, pertinent findings listed on HPI and Impression Vitals Visit Vitals Ht 1.829 m (6') Wt 92.5 kg (204 lb) BMI 27.67 kg/m BSA 2.17 m guardian is brother Yogehs nb [phone] Associated attestation - Bree Whiting MD - 11/15/2023 3:24 PM EST I saw and evaluated the patient. I personally obtained the blanchard and critical portions of the history and physical exam or was physically present for blanchard and critical portions performed by the resident/fellow. I reviewed the resident/fellow's documentation and discussed the patient with the resident/fellow. I agree with the resident/fellow's medical decision making as documented in the note. documented in this encounter [facility] Work Phone: 11-15-2023 Instructions Bree Whiting MD - 11/15/2023 9:40 AM EST -change timing for levothyroxine to 50mcg daily at600 am hold other meds at least 30 min after -increase vitamin D to 5000 units daily -calcium 500mg (elemental ca) twice a day with meals Get your labs done now Follow up in 6 months Bree Whiting MD Divison of Endocrinology [facility] option 4, then option 1 documented in this encounter [facility] Work Phone: 10-02-2023 Hospital Discharge instructions Tamara Chavez RN - 10/02/2023 3:03 PM EST PERIOPERATIVE DISCHARGE/HOME-GOING INSTRUCTIONS ANESTHESIA - GENERAL (ADULT) Special Care Needs: Activity: Rest at home today and tomorrow, then progress to your regular activities as tolerated. Diet: Clear liquids are best tolerated at first. If you are not nauseated, you can progress your diet to solid foods as tolerated. Possible post-operative precautions: Call you doctor or clinic for: 1. Signs of infection such as fever or chills. 2. Severe pain that in not relieved by your prescription pain medicine. 3. You may have a sore throat - it is usually gone in 1 to 2 days. Post-anesthesia safety: Possible side effects include drowsiness, dizziness, or inability to think clearly. For your safety, do not drive, drink alcoholic beverages, take any unprescribed medication or make any important decisions for 24 hours. A responsible adult should be with you for 24 hours. If your are not able to urinate in 8 hours after surgery or you become very uncomfortable and can t urinate, call [phone] or come to the emergency room. The following attachments cannot be sent through Care Everywhere.Dental Pain Discharge Instructions ([place])documented in this encounter [facility] 10-02-2023 Note Surgical Attestation : I have reviewed the patient's History and Physical Examination. I have personally seen and evaluated the patient, repeating blanchard portions. There is no significant interval change. Surgery is still indicated. Yes Consent reviewed and signed by patient/family: Yes Operative site verified and marked: site verified but not marked as not anatomically possible Tyrese Alexander DDS 10/02/2023 12:41 PM [facility] 10-02-2023 Surgery Postoperative evaluation and management note Brief Operative Note PHE OR 3 Markel Li 33 year old male Surgical Contact Serial Number: [id number] Preoperative Diagnosis: Caries [K02.9] Autism [ F 84] Postoperative Diagnosis: * Caries [K02.9] Procedures: Full mouth X ray [58131] Comprehensive exam [97192] Prophylaxis [94460] Restorations [59055] Surgeon(s): Surgeon(s): Tyrese Alexander DDS Staff: Armed Security Officer Nurse: Nina Galan RN Plumber'S Helper: Ca Raza DDS; Rosas Narayanan DDS Anesthesia: General Anesthesiologist: Timothy Elizalde MD GASKET NOTCHER: Rainer Fatima APRN-ARANZA Anesthesia Student: Joyce Rivers Specimen(s): * No specimens in log * Estimated Blood Loss: less than 5 cc Lines/Drains: Peripheral IV Access: 10/02/231327 20 gauge Left Hand (Active) Site Assessment WNL;Dressing intact 10/02/231327 Infusion Status Port #1 Infusing 10/02/231327 Temporarily Retained Foreign Object: No Findings: Normal Complications: None Status at end of surgery: Stable Activity: weight bearing as tolerated Surgical wound class: No wound. Patient Class: Outpatient Surgery. Is this a patient scheduled as an outpatient that needs to be admitted as an inpatient? No Dr. Mary was present in the OR for the critical portion of the procedure and procedure sign-out. Signed by Rosas Martini DDS 10/02/2023 2:29 PM [facility] 10-02-2023 Surgery Surgical operation note Surgical Case Number Data Unavailable Operating Room Data Unavailable Preoperative Diagnosis: Caries [K02.9] Autism [ F 84] Preoperative Diagnosis: Caries [K02.9] Autism [ F 84] Postoperative Diagnosis: Autism [ F 84] Procedures: Full mouth X ray [67244] Comprehensive exam [78409] Prophylaxis [24465] Restorations [01661] Postoperative Diagnosis(es): Same @ENCORD@ Surgeon: Dr Tyra DDS Digital Sales Manager Surgeon: WILLIAMS Corcoran DDS Anesthesia: General- Nasal ETT Estimated Blood Loss: 5 cc IV Fluids: 700 cc Urine Output: Not measured. Findings: The patient was brought to the operating room and placed in the supine position on the operating room table. Following satisfactory induction of GA. The patient was intubated with a nasal endotracheal tube. He was then prepped and drapped in the usual sterile fashion for dental procedures. Full mouth series were then taken and an oral examination was completed. A moistened throat pack was then placed. Full mouth scaling then performed. The radiographs were examined by the attending and the resident and used in conjunction with th oral exam to formulate a treatment plan. The restorative aspect of the treatment plan included the following composite restorations # 6 I # 7 I , # 24 F , # 25 F .Amalgam restoratuions # 15 DB , # 13 MO These restorations were placed following excavation of the carious lesions on each tooth. The remaining dentition was then polished with prophy paste. The oral cavity was irrigated and suctioned then the throat pack was removed. Fluoride treament was placed on the remaining dentition. The patient tolerated the procedure well was extubated in the operating room, and taken to the PACU in stable condition. Complications: None Status at end of surgery: Stable Medications: Outpatient Medications Marked as Taking for the 10/02/23 encounter (Hospital Encounter) Medication Sig Dispense Refill gabapentin (NEURONTIN) 400 MG capsule Take 400 mg by mouth daily. topiramate (TOPAMAX) 25 MG capsule Take 25 mg by mouth 2 times daily. trazodone (DESYREL) 100 MG tablet Take 100 mg by mouth at bedtime. levothyroxine (SYNTHROID) 50 MCG tablet Take 50 mcg by mouth daily. lurasidone (LATUDA) 80 MG tablet Take 1 Tablet by mouth at bedtime. guanFACINE HCl 2 MG TABS Take 1 Tablet by mouth 2 times daily. omeprazole (PRILOSEC) 20 MG capsule Take 20 mg by mouth daily. loratadine (CLARITIN) 10 MG tablet Take 10 mg by mouth daily. linaclotide (LINZESS) 290 MCG CAPS capsule Take 290 mcg by mouth daily. busPIRone (BUSPAR) 10 MG tablet Take 3 Tablets by mouth 3 times daily. Calcium Carbonate Antacid (ANTACID ORAL) Take 2 Tablets by mouth at bedtime. bisacodyl (DULCOLAX) 5 MG enteric coated tablet Take 5 mg by mouth daily. OXcarbazepine ER 600 MG TB24 Take 1,200 mg by mouth at bedtime. OXcarbazepine ER 600 MG TB24 Take 600 mg by mouth every morning. Cholecalciferol (VITAMIN D3) 1000 units tabelt Take 1 Tablet by mouth daily. melatonin 5 MG TABS tablet Take 5 mg by mouth at bedtime. folic acid 1 MG tablet Take 1 mg by mouth daily. docusate sodium (COLACE) 100 MG capsule Take 100 mg by mouth 3 times daily. METOPROLOL TARTRATE ORAL Take 100 mg by mouth 4 times daily. Dictated by: Rosas Martini DDS: Dr Mary was present for the critical portions of the procedure. Rosas Martini DDS 10/02/2023 2:34 PM [facility] 10-02-2023 History and physical note Surgical Attestation: I have reviewed the patient's History and Physical Examination. I have personally seen and evaluated the patient, repeating blanchard portions. There is no significant interval change. Surgery is still indicated. Yes Consent reviewed and signed by patient/family: Yes Operative site verified and marked: site verified but not marked as not anatomically possible Tyrese Alexander DDS 10/02/2023 12:41 PM [facility] Work Phone: 10-02-2023 History and physical note Surgical Attestation: I have reviewed the patient's History and Physical Examination. I have personally seen and evaluated the patient, repeating blanchard portions. There is no significant interval change. Surgery is still indicated. Yes Consent reviewed and signed by patient/family: Yes Operative site verified and marked: site verified but not marked as not anatomically possible Tyrese Alexander DDS 10/02/2023 12:41 PM documented in this encounter [facility] 10-02-2023 Progress note Formatting of t his note is different from the original. Blood Attestation: ATTESTATION OF INFORMED CONSENT FOR BLOOD: The transfusion of blood and/or blood components were discussed with the patient and/or legal sales representative public utilities. The risks, benefits and alternatives were reviewed. Questions regarding blood transfusions were answered. The patient /or the patient s legal sales representative public utilities agree with the plan for transfusion of blood and/or blood components. [facility] Work Phone: 10-02-2023 History of Present illness Narrative ----- Monday, October 02, 2023 at 2:27:57 PM ----- ----- Provider: [id number] - Tyrese Mary DDS -- Clinic: [facility] ----- [place] notes, [facility] pt is read for tx good [place]. no x-ray finding beside possible defect in 12,13. 12 was good clinically, 13 MO old franklyn popped off during the scaling. 6,7 had discolored exposed dentine, Incisal restos were placed. 24,25 facials were found during cleaning as well. Quick case. OP Note by Rosas Narayanan DDS at 10/02/2023 1:49 PM Author: Rosas Narayanan DDS Service: - Author Type: Resident Filed: 10/02/2023 2:37 PM Date of Service: 10/02/2023 1:49 PM Note Type: OP Note Status: Cosign Needed Air And Water Filler: Rosas Narayanan DDS (Resident) Cosign Required: Yes Expand All Collapse All Surgical Case Number Data Unavailable Operating Room Data Unavailable Preoperative Diagnosis: Caries [K02.9] Autism [ F 84] Preoperative Diagnosis: Caries [K02.9] Autism [ F 84] Postoperative Diagnosis: Autism [ F 84] Procedures: Full mouth X ray [03557] Comprehensive exam [60598] Prophylaxis [75068] Restorations [86072] Postoperative Diagnosis(es): Same @ENCORD@ Surgeon: Dr Tyra DDS Digital Sales Manager Surgeon: WILLIAMS Corcoran DDS Anesthesia: General- Nasal ETT Estimated Blood Loss: 5 cc IV Fluids: 700 cc Urine Output: Not measured. Findings: The patient was brought to the operating room and placed in the supine position on the operating room table. Following satisfactory induction of GA. The patient was intubated with a nasal endotracheal tube. He was then prepped and drapped in the usual sterile fashion for dental procedures. Full mouth series were then taken and an oral examination was completed. A moistened throat pack was then placed. Full mouth scaling then performed. The radiographs were examined by the attending and the resident and used in conjunction with th oral exam to formulate a treatment plan. The restorative aspect of the treatment plan included the following composite restorations # 6 I # 7 I , # 24 F , # 25 F .Amalgam restorations # 15 DB , # 13 MO These restorations were placed following excavation of the carious lesions on each tooth. The remaining dentition was then polished with prophy paste. The oral cavity was irrigated and suctioned then the throat pack was removed. Fluoride treatment was placed on the remaining dentition. The patient tolerated the procedure well was extubated in the operating room, and taken to the PACU in stable condition. Complications: None Status at end of surgery: Stable Medications: Medications Taking Outpatient Medications Marked as Taking for the 10/02/23 encounter (Hospital Encounter) Medication Sig Dispense Refill * gabapentin (NEURONTIN) 400 MG capsule Take 400 mg by mouth daily. * topiramate (TOPAMAX) 25 MG capsule Take 25 mg by mouth 2 times daily. * trazodone (DESYREL) 100 MG tablet Take 100 mg by mouth at bedtime. * levothyroxine (SYNTHROID) 50 MCG tablet Take 50 mcg by mouth daily. * lurasidone (LATUDA) 80 MG tablet Take 1 Tablet by mouth at bedtime. * guanFACINE HCl 2 MG TABS Take 1 Tablet by mouth 2 times daily. * omeprazole (PRILOSEC) 20 MG capsule Take 20 mg by mouth daily. * loratadine (CLARITIN) 10 MG tablet Take 10 mg by mouth daily. * linaclotide (LINZESS) 290 MCG CAPS capsule Take 290 mcg by mouth daily. * busPIRone (BUSPAR) 10 MG tablet Take 3 Tablets by mouth 3 times daily. * Calcium Carbonate Antacid (ANTACID ORAL) Take 2 Tablets by mouth at bedtime. * bisacodyl (DULCOLAX) 5 MG enteric coated tablet Take 5 mg by mouth daily. * OXcarbazepine ER 600 MG TB24 Take 1,200 mg by mouth at bedtime. * OXcarbazepine ER 600 MG TB24 Take 600 mg by mouth every morning. * Cholecalciferol (VITAMIN D3) 1000 units tabelt Take 1 Tablet by mouth daily. * melatonin 5 MG TABS tablet Take 5 mg by mouth at bedtime. * folic acid 1 MG tablet Take 1 mg by mouth daily. * docusate sodium (COLACE) 100 MG capsule Take 100 mg by mouth 3 times daily. * METOPROLOL TARTRATE ORAL Take 100 mg by mouth 4 times daily. Dictated by: Rosas Martini DDS: Dr Mary was present for the critical portions of the procedure. Rosas Martini DDS 10/02/2023 2:34 PM documented in this encounter [facility] 09-27-2023 Telephone encounter Note DD adult dental restorations on 10/02 under GA at [place]. PSE completed - consents obtained. PSE RN spoke to Miriam from [facility], confirmed NPO, [place] address, and 1100 arrival time [facility] 09-27-2023 Miscellaneous Notes DD adult dental restorations on 10/02 under GA at [place]. PSE completed - consents obtained. PSE RN spoke to Miriam from [facility], confirmed NPO, [place] address, and 1100 arrival time documented in this encounter [facility] 09-19-2023 Telephone encounter Note Informed Consent for dental surgery & Anesthesia consent obtained and scanned into EPIC. Scheduled for surgery 10/02/2023. [facility] 09-19-2023 Miscellaneous Notes Informed Consent for dental surgery & Anesthesia consent obtained and scanned into [facility]. Scheduled for surgery 10/02/2023. documented in this encounter [facility] 09-15-2023 Note Presurgical Evaluati on (Pre-Admission Testing) Consultation Markel Li, [id number] 33 year old Male 09/15/2023 Consult placed to [facility] by Dr. Alexander due to significant PMH of Patient needs a PSE TELEPHONE ASSESSMENT Total Score: 0 Markel Li is scheduled for (Bilateral) DENTAL RESTORATIONS on 10/02/2023. Preop diagnosis of: Pre-Op Diagnosis Codes: * Caries [K02.9] HISTORY OF PRESENT ILLNESS: Patient is here for presurgical optimization and education prior to surgery. RECENT ILLNESS: Serious illness or hospitalization within the last six months. No STOP BANG: ALLERGIES: Allergies Allergen Reactions Depakote [Valproic Acid] Luvox [Fluvoxamine] Risperidone Seroquel [Quetiapine] Patient Active Problem List: Intellectual disability [F79] GERD (gastroesophageal reflux disease) [K21.9] HTN (hypertension) [I10] Hypothyroid [E03.9] Caries [K02.9] SOCIAL HISTORY: has no history on file for drug use. Social History Tobacco Use Smoking status: Never Smokeless tobacco: Never MEDICAL HISTORY: Past Medical History: Diagnosis Date ADHD (attention deficit hyperactivity disorder) Autism Bipolar 1 disorder (HCC) Constipation GERD (gastroesophageal reflux disease) HTN (hypertension) Hypothyroid Incontinence Insomnia Seasonal affective disorder (HCC) Severe intellectual disabilities Urinary retention SURGICAL HISTORY: Past Surgical History: Procedure Laterality Date DENTAL RESTORATIONS N/A 02/06/2017 Procedure: DENTAL RESTORATIONS; Surgeon: Noé Drew DDS; Location: PERIOPERATIVE SERVICES; Service: Dental DENTAL RESTORATIONS Bilateral 02/15/2021 Procedure: DENTAL RESTORATIONS; Surgeon: Grabiel Cummings DDS; Location: [facility] Surgery [place]; Service: Dental EXTRACTION, TOOTH 02/06/2017 Procedure: EXTRACTION, TOOTH; Surgeon: Noé Drew DDS; Location: PERIOPERATIVE SERVICES; Service: Dental UNLISTED PROCEDURE, DENTOALVEOLAR STRUCTURES 04/29/10 X-RAY EXAM OF TEETH. [id number] 04/29/10 ANESTHESIA REVIEW OF SYSTEMS: Eyes/ENT: Negative Teeth: Missing Teeth Pulmonary: Negative Cardio-vascular: HTN G.I./ Hepatic: GERD Renal/: Negative Neurological: Negative Gynecological: N/A Psychiatric: Autism Musculoskeletal: Negative Endocrine: Thyroid disease Hematologic: Negative Constitutional: Negative Skin: n/a PREVIOUS ANESTHETIC COMPLICATIONS: Anesthesia Complications No anesthesia history noted FAMILY HISTORY OF ANESTHETIC COMPLICATIONS: No CURRENT MEDICATION LIST: Current Outpatient Medications Medication Sig Dispense Refill trazodone (DESYREL) 100 MG tablet Take 100 mg by mouth at bedtime. levothyroxine (SYNTHROID) 50 MCG tablet Take 50 mcg by mouth daily. lurasidone (LATUDA) 80 MG tablet Take 1 Tablet by mouth at bedtime. guanFACINE HCl 2 MG TABS Take 1 Tablet by mouth 2 times daily. guanfacine (TENEX) 1 MG tablet Take 2 Tablets by mouth at bedtime. Multiple Vitamins-Minerals (THERA-M ORAL) Take 1 Tablet by mouth daily. omeprazole (PRILOSEC) 20 MG capsule Take 20 mg by mouth daily. loratadine (CLARITIN) 10 MG tablet Take 10 mg by mouth daily. linaclotide (LINZESS) 290 MCG CAPS capsule Take 290 mcg by mouth daily. clonazePAM (KlonoPIN) 0.5 MG tablet Take 0.5 mg by mouth every morning. clonazePAM (KlonoPIN) 1 MG tablet Take 1 mg by mouth 2 times daily. At 4pm and 10pm carbamazepine (TEGRETOL XR) 400 MG XR tablet Take 400 mg by mouth 2 times daily. busPIRone (BUSPAR) 10 MG tablet Take 3 Tablets by mouth 3 times daily. Calcium Carbonate Antacid (ANTACID ORAL) Take 2 Tablets by mouth at bedtime. bisacodyl (DULCOLAX) 5 MG enteric coated tablet Take 5 mg by mouth daily. OXcarbazepine ER 600 MG TB24 Take 1,200 mg by mouth at bedtime. OXcarbazepine ER 600 MG TB24 Take 600 mg by mouth every morning. acetaminophen (TYLENOL) 325 MG tablet Take 1-2 Tablets by mouth every 4 hours as needed. Cholecalciferol (VITAMIN D3) 1000 units tabelt Take 1 Tablet by mouth daily. Polyethylene Glycol 3350 (MIRALAX ORAL) Take 17 g by mouth 2 times daily. melatonin 5 MG TABS tablet Take 5 mg by mouth at bedtime. folic acid 1 MG tablet Take 1 mg by mouth daily. docusate sodium (COLACE) 100 MG capsule Take 100 mg by mouth 3 times daily. clonidine (CATAPRES) 0.2 MG tablet Take 0.2 mg by mouth 3 times daily. METOPROLOL TARTRATE ORAL Take 100 mg by mouth 4 times daily. No current facility-administered medications for this visit. HEIGHT: Data Unavailable WEIGHT: Weight was 92.8 kg on 09/15/2023 BMI: Data Unavailable VITAL SIGNS: There were no vitals filed for this visit. PAIN ASSESSMENT: Severity: 0 Location: n/a AIRWAY EXAM: Mallampati score: 2 TMD: Adequate Neck Extension/ Flexion: Adequate Mouth Opening: Adequate Dentition: Missing teeth Micrognathia/Overbite: No PHYSICAL EXAM: Eyes: Normal ENT: Nares normal, Mucosa normal, and Neck supple Pulmonary: Chest clear to auscultation bilaterally Cardiovascular: RRR with S1S (more content not included)... [facility] 09-15-2023 Instructions Bola Claire MD - 09/15/2023 3:24 PM EDT RECOMMENDATIONS: Patient was instructed on the following: Nothing by mouth after midnight before surgery except following meds with sip of water on AM of surgery: as per anesthesia Stop aspirin 7 days before surgery Stop NSAID 5 days before surgery Stop Vitamin E 10 days prior to surgery Stop alternative/herbal medication 10 days before surgery documented in this encounter [facility] 09-15-2023 History of Present illness Narrative Blood pressure 112/72, pulse 58, temperature 97.7 F (36.5 C), temperature source Temporal, resp. rate 32, height 5' 10.47 (1.79 m), weight 204 lb 9.6 oz (92.8 kg), SpO2 99 %. Medications/Allergies Reviewed CURRENT MEDICATIONS Current Outpatient Medications Medication Sig Dispense Refill trazodone (DESYREL) 100 MG tablet Take 100 mg by mouth at bedtime. levothyroxine (SYNTHROID) 50 MCG tablet Take 50 mcg by mouth daily. lurasidone (LATUDA) 80 MG tablet Take 1 Tablet by mouth at bedtime. guanFACINE HCl 2 MG TABS Take 1 Tablet by mouth 2 times daily. guanfacine (TENEX) 1 MG tablet Take 2 Tablets by mouth at bedtime. Multiple Vitamins-Minerals (THERA-M ORAL) Take 1 Tablet by mouth daily. omeprazole (PRILOSEC) 20 MG capsule Take 20 mg by mouth daily. loratadine (CLARITIN) 10 MG tablet Take 10 mg by mouth daily. linaclotide (LINZESS) 290 MCG CAPS capsule Take 290 mcg by mouth daily. clonazePAM (KlonoPIN) 0.5 MG tablet Take 0.5 mg by mouth every morning. clonazePAM (KlonoPIN) 1 MG tablet Take 1 mg by mouth 2 times daily. At 4pm and 10pm carbamazepine (TEGRETOL XR) 400 MG XR tablet Take 400 mg by mouth 2 times daily. busPIRone (BUSPAR) 10 MG tablet Take 3 Tablets by mouth 3 times daily. Calcium Carbonate Antacid (ANTACID ORAL) Take 2 Tablets by mouth at bedtime. bisacodyl (DULCOLAX) 5 MG enteric coated tablet Take 5 mg by mouth daily. OXcarbazepine ER 600 MG TB24 Take 1,200 mg by mouth at bedtime. OXcarbazepine ER 600 MG TB24 Take 600 mg by mouth every morning. acetaminophen (TYLENOL) 325 MG tablet Take 1-2 Tablets by mouth every 4 hours as needed. Cholecalciferol (VITAMIN D3) 1000 units tabelt Take 1 Tablet by mouth daily. Polyethylene Glycol 3350 (MIRALAX ORAL) Take 17 g by mouth 2 times daily. melatonin 5 MG TABS tablet Take 5 mg by mouth at bedtime. folic acid 1 MG tablet Take 1 mg by mouth daily. docusate sodium (COLACE) 100 MG capsule Take 100 mg by mouth 3 times daily. clonidine (CATAPRES) 0.2 MG tablet Take 0.2 mg by mouth 3 times daily. METOPROLOL TARTRATE ORAL Take 100 mg by mouth 4 times daily. No current facility-administered medications for this visit. ALLERGIES Allergies Allergen Reactions Depakote [Valproic Acid] Luvox [Fluvoxamine] Risperidone Seroquel [Quetiapine] Latex Allergy: No Surgical Procedure: dental amish Surgeon: unknown Date of Surgery: 10/02/2023 HISTORY: 33 year old with history of ASD, ID, Bipolar d/o, HTN, Hypothyroidism, Hypocalcemia, GERD, CKD 3 and Constipation scheduled for above procedure My opinion was requested regarding this patient's complex presurgical evaluation. Pertinent Past Medical History and Surgical History Reviewed. Past Medical History: Diagnosis Date ADHD (attention deficit hyperactivity disorder) Autism Bipolar 1 disorder (HCC) Constipation GERD (gastroesophageal reflux disease) HTN (hypertension) Hypocalcemia Hypothyroid Incontinence Insomnia Seasonal affective disorder (HCC) Severe intellectual disabilities Sialorrhea Urinary retention Past Surgical History: Procedure Laterality Date DENTAL RESTORATIONS N/A 02/06/2017 Procedure: DENTAL RESTORATIONS; Surgeon: Noé Drew DDS; Location: [facility]OPER[facility]IVE SERVICES; Service: Dental DENTAL RESTORATIONS Bilateral 02/15/2021 Procedure: DENTAL RESTORATIONS; Surgeon: Grabiel Cummings DDS; Location: [facility]; Service: Dental EXTRACTION, TOOTH 02/06/2017 Procedure: EXTRACTION, TOOTH; Surgeon: Noé Drew DDS; Location: PERIOPERATIVE SERVICES; Service: Dental UNLISTED PROCEDURE, DENTOALVEOLAR STRUCTURES 04/29/10 X-RAY EXAM OF TEETH. [id number] 04/29/10 Pertinent Social History Reviewed Social History Tobacco Use Smoking Status Never Smokeless Tobacco Never Social History Substance and Sexual Activity Alcohol Use Not on file Social History Substance and Sexual Activity Drug Use Not on file Family History Reviewed. Family history is unknown by patient. 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 No rash or lesions HEENT: Uncooperative with exam Neck: No carotid bruit, JVD, lymphadenopathy or goiter CV: Normal S1/S2, no murmurs/gallops/rubs Lungs: Lungs clear to auscultation. Good air entry bilaterally Abdomen: Abdomen soft and non-tender. BS normal No masses or organomegaly. Extremities: Extremities normal. No deformities, edema, clubbing or discoloration. Neuro: No focal neurological deficits Pulses: 2+ carotid and radial pulses : Not examined/ Not indicated AIRWAY EXAM: Mallampati Classification of Airway: Unable to assess; not cooperative Thyromental Distance: >6cm Neck Extension: FROM Mouth Opening: Not cooperative Teeth: Unable to assess ASA Classification: Class II: Individual with one system well controlled disease. Disease does not affect daily living. EKG: Not indicated LABS: Pending ASSESSMENT and PLAN Patient is a 33 year old year old male Functional capacity: >4.0 METs Comorbid Conditions: HTN Hypothyroidism Seizure d/o Urinary Retention Constipation ID ADHD GERD CKD 3 Revised Cardiac Risk Index: None Patient is scheduled for a procedure that is low risk. RECOMMENDATIONS: Patient was instructed on the following: Nothing by mouth after midnight before surgery except following meds with sip of water on AM of surgery: as per anesthesia Stop aspirin 7 days before surgery Stop NSAID 5 days before surgery Stop Vitamin E 10 days prior to surgery Stop alternative/herbal medication 10 days before surgery Recommendations to surgical team: None Patient is medically optimized for surgery pending : at baseline Bola Claire MD [phone] Patient was identified by name and date of . Lashon Parsons documented in this encounter [facility] 09-15-2023 Evaluation note Presurgical Evaluation (Pre-Admission Testing) Consultation Markel Li, [id number] 33 year old Male 09/15/2023 Consult placed to PSE by Dr. Alexander due to significant PMH of Patient needs a PSE TELEPHONE ASSESSMENT Total Score: 0 Markel Li is scheduled for (Bilateral) DENTAL RESTORATIONS on 10/02/2023. Preop diagnosis of: Pre-Op Diagnosis Codes: * Caries [K02.9] HISTORY OF PRESENT ILLNESS: Patient is here for presurgical optimization and education prior to surgery. RECENT ILLNESS: Serious illness or hospitalization within the last six months. No STOP BANG: ALLERGIES: Allergies Allergen Reactions Depakote [Valproic Acid] Luvox [Fluvoxamine] Risperidone Seroquel [Quetiapine] Patient Active Problem List: Intellectual disability [F79] GERD (gastroesophageal reflux disease) [K21.9] HTN (hypertension) [I10] Hypothyroid [E03.9] Caries [K02.9] SOCIAL HISTORY: has no history on file for drug use. Social History Tobacco Use Smoking status: Never Smokeless tobacco: Never MEDICAL HISTORY: Past Medical History: Diagnosis Date ADHD (attention deficit hyperactivity disorder) Autism Bipolar 1 disorder (HCC) Constipation GERD (gastroesophageal reflux disease) HTN (hypertension) Hypothyroid Incontinence Insomnia Seasonal affective disorder (HCC) Severe intellectual disabilities Urinary retention SURGICAL HISTORY: Past Surgical History: Procedure Laterality Date DENTAL RESTORATIONS N/A 02/06/2017 Procedure: DENTAL RESTORATIONS; Surgeon: Noé Drew DDS; Location: PERIOPERATIVE SERVICES; Service: Dental DENTAL RESTORATIONS Bilateral 02/15/2021 Procedure: DENTAL RESTORATIONS; Surgeon: Grabiel Cummings DDS; Location: [facility]; Service: Dental EXTRACTION, TOOTH 02/06/2017 Procedure: EXTRACTION, TOOTH; Surgeon: Noé Drew DDS; Location: PERIOPERATIVE SERVICES; Service: Dental UNLISTED PROCEDURE, DENTOALVEOLAR STRUCTURES 04/29/10 X-RAY EXAM OF TEETH. [id number] 04/29/10 ANESTHESIA REVIEW OF SYSTEMS: Eyes/ENT: Negative Teeth: Missing Teeth Pulmonary: Negative Cardio-vascular: HTN G.I./ Hepatic: GERD Renal/: Negative Neurological: Negative Gynecological: N/A Psychiatric: Autism Musculoskeletal: Negative Endocrine: Thyroid disease Hematologic: Negative Constitutional: Negative Skin: n/a PREVIOUS ANESTHETIC COMPLICATIONS: Anesthesia Complications No anesthesia history noted FAMILY HISTORY OF ANESTHETIC COMPLICATIONS: No CURRENT MEDICATION LIST: Current Outpatient Medications Medication Sig Dispense Refill trazodone (DESYREL) 100 MG tablet Take 100 mg by mouth at bedtime. levothyroxine (SYNTHROID) 50 MCG tablet Take 50 mcg by mouth daily. lurasidone (LATUDA) 80 MG tablet Take 1 Tablet by mouth at bedtime. guanFACINE HCl 2 MG TABS Take 1 Tablet by mouth 2 times daily. guanfacine (TENEX) 1 MG tablet Take 2 Tablets by mouth at bedtime. Multiple Vitamins-Minerals (THERA-M ORAL) Take 1 Tablet by mouth daily. omeprazole (PRILOSEC) 20 MG capsule Take 20 mg by mouth daily. loratadine (CLARITIN) 10 MG tablet Take 10 mg by mouth daily. linaclotide (LINZESS) 290 MCG CAPS capsule Take 290 mcg by mouth daily. clonazePAM (KlonoPIN) 0.5 MG tablet Take 0.5 mg by mouth every morning. clonazePAM (KlonoPIN) 1 MG tablet Take 1 mg by mouth 2 times daily. At 4pm and 10pm carbamazepine (TEGRETOL XR) 400 MG XR tablet Take 400 mg by mouth 2 times daily. busPIRone (BUSPAR) 10 MG tablet Take 3 Tablets by mouth 3 times daily. Calcium Carbonate Antacid (ANTACID ORAL) Take 2 Tablets by mouth at bedtime. bisacodyl (DULCOLAX) 5 MG enteric coated tablet Take 5 mg by mouth daily. OXcarbazepine ER 600 MG TB24 Take 1,200 mg by mouth at bedtime. OXcarbazepine ER 600 MG TB24 Take 600 mg by mouth every morning. acetaminophen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 Impairments: severe intellectual deficit, GERD, ADHD, Autism, Bipolar, depression, excessive salivation, folate deficiency, HTN, hypothyroid, myopia Activities and Participation: ADL/IADL limitation, Executive function limitation, Swallowing limitation Explain Limitations: requires constant supevision due to deficits and safety risks Environmental Factors: Home situation, Family/caregiver support Explain Environmental Factors: resident at [place] Personal Factors: Awareness of own capacity and performance Explain Personal Factors: very limited insight and poor ability to follow direction, easily distracted Skilled Therapy Needs: Are Skilled Therapy Services Needed After Discharge: Yes Presentation of: dysphagia, need for supervision with po intake Intensity of Skilled Therapy: 2-3 days per week Anticipated Duration of Skilled Therapy: Duration 7 - 10 days Pt seen this am for modified barium swallow with 2 staff members present in radiology suite from pt facility for entire procedure to assist with anticipated behavioral issues. Pt appearing cooperative initially, increased movement throughout testing making visualization during swallow a challenge. Pt was accepting only of cookie bolus, refusing all liquid trials despite attempts to change presentation from cup to straw, allow choices of cups. Facility staff indicate primary take away from procedure was to determine ability to consume solid foods (which was the only consistency accepted), thus further trials abandoned as pt was becoming increasingly despondent with multiple attempts to encourage liquid trials. Pt demonstrating moderate oropharyngeal deficits with prolonged oral mastication timing and transition of bolus, frequently rocking back and forth during mastication (inconsistent labial closure, munching chew pattern at times). Lingual pumping noted with premature pharyngeal entry to level of pyriform sinuses prior to pharyngeal engagement. Was able to visualize full epiglottal inflection during swallow. Mild, diffuse residue noted to vallecular and pyriform regions with pt unable to follow direction for dry swallows or to utilize liquids for attempt at pharyngeal wash. Would continue liquids at current level due to inability to assess liquid trials this date and assumed risk for premature entry as was noted for more dense solid bolus trialed this date. Initiate a mechanically altered soft diet with speech/swallow therapist to determine safety and endurance throughout an entire meal. Encourage small single bites and sips with assurance of oral clearance prior to taking next bite or sip. 1:1 supervision. Oral cares after all meals and med passes to assure clearance. This note stands as the current Discharge Summary upon patient discharge from the hospital or completion of Speech Pathology Plan of Care documented in this encounter Care Teams (unrecognized sec tion and content) Sewer And Inspector Relationship Specialty Start Date End Date Raleigh Epps DO [address] [place] [address] PCP - General Family Medicine 02/05/21 Nataliia Cruz DDS [address] [place] [address] [place] [address] Resident Dentistry 08/18/20 Sewer And Inspector Relationship Specialty Start Date End Date Raleigh Epps DO [address] [place] [address] PCP - General Family Medicine 02/05/21 Nataliia Cruz DDS [address] [place] [address] [place] [address] Resident Dentistry 08/18/20 Sewer And Inspector Relationship Specialty Start Date End Date Raleigh Epps DO [address] [place] [address] PCP - General Family Medicine 02/05/21 Nataliia Cruz DDS [address] [place] [address] [place] [address] Resident Dentistry 08/18/20 Sewer And Inspector Relationship Specialty Start Date End Date Raleigh Epps DO [address] [place] [address] PCP - General Family Medicine 02/05/21 Nataliia Cruz DDS [address] [place] [address] [place] [address] Resident Dentistry 08/18/20 Sewer And Inspector Relationship Specialty Start Date End Date Raleigh Epps DO [address] [place] [address] PCP - General Family Medicine 02/05/21 Nataliia Cruz [address] [place] [address] Resident Dentistry 08/18/20 Sewer And Inspector Relationship Specialty Start Date End Date Raleigh Epps DO [address] [place] [address] PCP - General Family Medicine 02/05/21 Nataliia Cruz [address] [place] [address] Resident Dentistry 08/18/20 Sewer And Inspector Relationship Specialty Start Date End Date Raleigh Epps DO [address] [place] [address] PCP - General Family Medicine 02/05/21 Nataliia Cruz Kaylee [address] [place] [address] [place] [address] Resident Dentistry 08/18/20 Sewer And Inspector Relationship Specialty Start Date End Date Raleigh Epps, [address] [place] [address] PCP - General Family Medicine 02/05/21 Nataliia Cruz [address] [place] [address] Resident Dentistry 08/18/20 Sewer And Inspector Relationship Specialty Start Date End Date Raleigh Epps DO [address] [place] [address] PCP - General Family Medicine 02/05/21 Nataliia Cruz DDS [address] [place] [address] Resident Dentistry 08/18/20 Sewer And Inspector Relationship Specialty Start Date End Date Raleigh Epps DO [address] [place] [address] PCP - General Family Medicine 02/05/21 Nataliia Cruz DDS [address] [place] [address] Resident Dentistry 08/18/20 Sewer And Inspector Relationship Specialty Start Date End Date Sai Batres MD [address] [place] [address] PCP - General 12/21/10 PRN Active and Recently Administ ered Medications (unrecognized section and content) Medication Order 09/30/2023 10/01/2023 10/02/2023 acetaminophen (TYLENOL) tablet 650 mg, Oral, PACU ONCE PRN, Starting on Mon10/02/23 at 1210, Until Mon10/02/23 at 1809, Mild Pain (pain score 1,2,3), PACU Now HYDROmorphone (DILAUDID) 0.2 MG/ML injection 0.2 mg 0.2 mg, Intravenous Push, PACU EVERY 15 MIN PRN X 4 DOSES, 4 doses, Starting on Mon10/02/23 at 1210, Until Mon10/04/23 at 1209, Moderate Pain (pain score 4,5,6), PACU Now HYDROmorphone (DILAUDID) 1 mg/mL injection 0.5 mg, Intravenous Push, PACU EVERY 15 MIN PRN X 4 DOSES, 4 doses, Starting on Mon10/02/23 at 1210, Until Mon10/03/23 at 2359, Severe Pain (pain score 7,8,9,10), PACU Now naloxone (NARCAN) 0.4 MG/ML injection 0.4 mg, Intravenous Push, PRN, Starting on Mon10/02/23 at 1210, Until Discontinued, Respiratory Rate Less Than 8 for adults and less than 12 for Peds or for suspected overdose, PACU Now ondansetron (ZOFRAN) 4 MG/2ML injection 4 mg, Intravenous Push, PACU ONCE PRN, Starting on Mon10/02/23 at 1210, Until Mon10/02/23 at 1809, Nausea, Vomiting, PACU Now sodium chloride 0.9 % (PF) 0.9 % injection 3 mL, Intravenous Push, PRN, Starting on Mon10/02/23 at 1210, Until Discontinued, For medication administration and blood draw, PACU Now tramadol (ULTRAM) tablet 50 mg, Oral, PACU ONCE PRN, Starting on Mon10/02/23 at 1210, Until Mon10/02/23 at 1809, Moderate Pain (pain score 4,5,6), PACU Now FOR RECORDS PERTAINING TO PATIENTS WHO ARE OR HAVE BEEN ENROLLED IN A CHEMICAL DEPENDENCY/SUBSTANCEABUSE PROGRAM, SOME INFORMATION MAY BE OMITTED. This clinical summary was aggregated from multiple sources. Caution should be exercised in using it in the provision of clinical care. This summary normalizes information from multiple sources, and as a consequence, information in this document may materially change the coding, format and clinical context of patient data. In addition, data may be omitted in some cases. CLINICAL DECISIONS SHOULD BE BASED ON THE PRIMARY CLINICAL RECORDS. Organizer [facility]. provides no warranty or guarantee of the accuracy or completeness of information in this document.
== END 2024-07-06 17:12 | disposition home or self-care (01) ==
LOC: LAB 17:11
PROVIDERS: PCP Family Medicine; Visit Provider Family Medicine
DX: L08.89 Other specified local infections of the skin and subcutaneous tissue (principal)
CPT/HCPCS: 87070; 87075; 87186

== ENCOUNTER 2024-08-01 22:52 | Emergency (ER) | payer MEDICARE, MEDICAID, SELFPAY ==
[2024-08-01 22:58] VITALS: BP 136/90; PULSE 58; TEMP 36.6; O2SAT 100; BMI 30.5
--- OUTSIDE RECORDS SUMMARY | 2024-08-01 23:00 | XMS_ITS | CCD ---
Author Organization [facility] Care Team Providers Care Washer Engineer Helper Name Role Phone DABOUL, ISAM Admitting Unavailable [...] Unavailable Raleigh Epps DO Primary Care Provider PROVIDER, UNKNOWN Admitting Unavailable PROVIDER, UNKNOWN Attending Unavailable [place] EPPS Primary Care Unavailable PROVIDER, UNKNOWN Admitting Unavailable PROVIDER, UNKNOWN Attending Unavailable [place] EPPS Primary Care Unavailable AL-MASHNI, TYRESE Admitting Unavailable AL-MASHNI, TYRESE Attending Unavailable [place] EPPS Primary Care Unavailable PROVIDER, UNKNOWN Admitting Unavailable PROVIDER, UNKNOWN Attending Unavailable [place] EPPS Primary Care Unavailable Sai Batres MD Primary Care Provider [phone] [place] EPPS Referring Unavailable EPPSRALEIGH MCCAIN Attending Unavailable EPPSRALEIGH MCCAIN Admitting Unavailable BREE WHITING Attending Unavailable SAI BATRES Primary Care Unavailable BREE WHITING Attending Unavailable SAI BATRES Primary Care Unavailable Allergies Allergy Classification Reported Allergen(s) Allergy Type Date of Onset Reaction(s) Facility (3 sources) fluvoxaMINE; Translations: [Luvox] Drug Allergy [facility] Repository (15 sources) QUEtiapine; Translations: [SEROquel TABS] Drug Allergy 02-03-2017 Unknown [facility] [place] [employer] [address] Work Phone: (4 sources) risperiDONE; Translations: [risperiDONE TABS] Drug Allergy 02-06-2017 Unknown [facility] [employer] [address] Work Phone: (2 sources) Valproate; Translations: [Depakote] Drug Allergy [facility] [employer] [address] Work Phone: (15 sources) fluvoxaMINE; Translations: [FLUVOXAMINE] Drug All[facility] 02-06-2017 [facility] Valproate; Translations: [VALPROIC ACID] Drug Allergy 02-03-2017 [facility] (13 sources) risperiDONE; Translations: [RISPERIDONE] Drug Allergy 02-06-2017 [facility] (2 sources) QUEtiapine; Translations: [QUETIAPINE] Drug Allergy 02-03-2017 [facility] Repository (2 sources) Valproate; Translations: [DIVALPROEX] Drug Allergy 11-15-2023 Unknown [facility] (1 source) QUEtiapine; Translations: [SEROquel] Drug Allergy 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 XR Adult Swallowing Function w/ Videoon 12-15-2023 [...] mGy = 17.10 DAP = 395.[address] [facility] Physician Orderon 12-11-2023 Physician Order [id number]. 00TIFF Normal [facility] Anesthesia Postprocedure Clara luationon 10-03-2023 Fiber Heel Piece Shaper Authentication Interface Message Text Anesthesia Postoperative Assessment: [...] EVENTS: No notable events documented. Normal [facility] Anesthesia Preprocedure Eval uationon 10-02-2023 Fiber Heel Piece Shaper Authentication Interface Message Text ASA: 3 No [...] were discussed with the patient and/or legal territory sales representative. The risks, benefits and alternatives were reviewed. Questions regarding anesthesia were answered. Patient and/or legal territory sales representative knows such anesthetics and procedures may be performed by Resident physicians, Certified Anesthesiologist Assistants, or Certified Nurse Anesthetists under the supervision of a physician. The patient /or the patient's legal territory sales representative agree with the plan for anesthesia. 29 [...] DENTAL RESTORATIONS; Surgeon: Grabiel Cummings DDS; Location: [facility] Surgery Center; Service: Dental * EXTRACTION, TOOTH 02/06/2017 Procedure: EXTRACTION, TOOTH; Surgeon: Noé Drew DDS; Location: PERIOPERATIVE SERVICES; Service: Dental * UNLISTED PROCEDURE, DENTOALVEOLAR STRUCTURES 04/29/10 * X-RAY EXAM OF TEETH. [id number] 04/29/10 Social History Socioeconomic History * Marital status: Single Tobacco Use * Smoking status: Never * Smokeless tobacco: Never Social History Narrative [facility]. Brother is guardian. Current Outpatient Medications on [...] carbamazepine (more content not included)... Normal [facility] 10-02-2023 Fiber Heel Piece Shaper Authentication Interface Message Text Patient taken to [...] surgical history indicates: X-RAY EXAM OF TEETH. [id number] (04/29/10) UNLISTED PROCEDURE, DENTOALVEOLAR STRUCTURES (04/29/10) DENTAL [...] Tyrese Alexander DDS Anesthesiologist: Timothy Elizalde MD MARINE ERECTOR: Rainer Fatima APRN-MARINE ERECTOR Anesthesia Student: Joyce Rivers DENTAL RESTORATIONS (Bilateral) [...] was received. Rainer Fatima APRN-ARANZA Normal [facility] Blood Attestationon 10-02-20 Fiber Heel Piece Shaper Authentication Interface Message Text Blood Attestation: ATTESTATION OF INFORMED CONSENT FOR BLOOD: The transfusion of blood and/or blood components were discussed with the patient and/or legal territory sales representative. The risks, benefits and alternatives were reviewed. Questions regarding blood transfusions were answered. The patient /or the patient's legal territory sales representative agree with the plan for transfusion of blood and/or blood components. Normal [facility] Brief Operative Noteon 10-02 Fiber Heel Piece Shaper Authentication Interface Message Text Brief Operative Note PHE OR 3 Markel Li 33 year old male Surgical Contact Serial Number: [id number] Preoperative Diagnosis: Caries [K02.9] Autism [ F 84] Postoperative Diagnosis: * Caries [K02.9] Procedures: Full mouth X ray [26248] Comprehensive exam [58991] Prophylaxis [06394] Restorations [52721] Surgeon(s): Surgeon(s): Tyrese Alexander DDS Staff: Nail Assembly Machine Operator Nurse: Nina Galan RN Financial Operations Consultant: Ca Raza DDS; Rosas Narayanan DDS Anesthesia: General Anesthesiologist: Timothy Elizalde MD MARINE ERECTOR: Rainer Fatima APRN-MARINE ERECTOR Anesthesia Student: Joyce Rivers Specimen(s): * No [...] Martini DDS 10/02/2023 2:29 PM Normal [facility] OP Noteon 10-02-2023 Fiber Heel Piece Shaper Authentication Interface Message Text Surgical Case Number Data Unavailable Operating Room Data Unavailable Preoperative Diagnosis: Caries [K02.9] Autism [ F 84] Preoperative Diagnosis: Caries [K02.9] Autism [ F 84] Postoperative Diagnosis: Autism [ F 84] Procedures: Full mouth X ray [16322] Comprehensive exam [17172] Prophylaxis [31380] Restorations [29466] Postoperative Diagnosis(es): Same @ENCORD@ Surgeon: Dr Tyra DDS Financial Institution Manager Surgeon: WILLIAMS Corcoran DDS Anesthesia: General- [...] Martini DDS 10/02/2023 2:34 PM Normal [facility] Progress Noteson 10-02-2023 Fiber Heel Piece Shaper Authentication Interface Message Text ----- Monday, October 02, 2023 at 2:27:57 PM ----- ----- Provider: [id number] Isabel Mary DDS -- Clinic: [facility] ----- [place] notes, RM pt is read [...] Note Type: OP Note Status: Cosign Needed Coil Winding Supervisor: Rosas Narayanan DDS (Resident) Cosign Required: Yes Expand All Collapse All Surgical Case Number Data Unavailable Operating Room Data Unavailable Preoperative Diagnosis: Caries [K02.9] Autism [ F 84] Preoperative Diagnosis: Caries [K02.9] Autism [ F 84] Postoperative Diagnosis: Autism [ F 84] Procedures: Full mouth X ray [97038] Comprehensive exam [80456] Prophylaxis [07646] Restorations [54355] Postoperative Diagnosis(es): Same @ENCORD@ Surgeon: Dr Tyra DDS Financial Institution Manager Surgeon: WILLIAMS Corcoran DDS Anesthesia: General- [...] Martini DDS 10/02/2023 2:34 PM Normal [facility] Telephone Encounteron 2022 Fiber Heel Piece Shaper Authentication Interface Message Text DD adult dental restorations on 10/02 under [place] at [place]. PSE completed - consents obtained. PSE RN spoke to Miriam from [facility], confirmed NPO, [place] address, and 1100 arrival time Normal [facility] Telephone Encounteron 2022 Fiber Heel Piece Shaper Authentication Interface Message Text Informed Consent for dental surgery AND Anesthesia consent obtained and scanned into [employer]. Scheduled for surgery 10/02/2023. Normal [facility] BASIC METABOLIC PANELon 11-0 Anion gap [Moles/Vol] 13 mmol/L Normal 10-20 The [facility] Comment on above: Performed By: #### C H8 ####S PATHOLOGY [id number] [place], [place], Calcium [Mass/Vol] 9.6 mg/dL Normal 8.4-10.4 The [facility] Comment on above: Performed By: #### C H8 ####[facility] PATHOLOGY [id number] [place], [place], Chloride [Moles/Vol] 105 mmol/L Normal 97-111 The [facility] Comment on above: Performed By: #### C H8 ####[facility] PATHOLOGY [id number] [place], CO2 [Moles/Vol] 26 mmol/L Normal 21-30 The [facility] Comment on above: Performed By: #### C H8 ####S PATHOLOGY [id number] [place], [place], Creatinine [Mass/Vol] 1.58 mg/dL High 0.80-1.30 The [facility] Comment on above: Performed By: #### C H8 ####[facility] PATHOLOGY [id number] [place], [place], ESTIMATED GFR (CKD-EPI) 59 mL/min/1.73sqm Low >=60 The [facility] Comment on above: Result Comment: [...] Inclusion of Race in Diagnosing Kidney Disease. [place] Journal of Kidney Diseases 2021;79(2):268-88.e1. 2. N Engl J Med 1 Vol. 385 Issue 19 Pages 7088-5411 Performed By: #### C H8 ####[facility] PATHOLOGY [id number] [place], [place], Glucose [Mass/Vol] 69 mg/dL Normal 68-[address] [facility] Comment on above: Performed By: #### C H8 ####[facility] PATHOLOGY [id number] [place], [place], Potassium [Moles/Vol] 4.1 mmol/L Normal 3.3-5.3 The [facility] Comment on above: Performed By: #### C H8 ####S PATHOLOGY [id number] [place], Sodium [Moles/Vol] 140 mmol/L Normal 135-[address] [facility] Comment on above: Performed By: #### C H8 ####S PATHOLOGY [id number] [place], Urea nitrogen [Mass/Vol] 18 mg/dL Normal 8-22 The [facility] Comment on above: Performed By: #### C H8 ####S PATHOLOGY [id number] [place], [address] Basic metabolic 2000 panelon 09-15-2023 Anion gap [...] Inclusion of Race in Diagnosing Kidney Disease. [place] Journal of Kidney Diseases 202;79(2):268-88.e1. 2. N Engl J Med 2020 Vol. 385 Issue 19 Pages 0389-0737 Glucose [Mass/Vol] 69 mg/dL 68 - 110 [...] 13.8 g/dL Low 13.9 - 16.3 g/dL [facility] Interpretation and review of laboratory results Abnormal [facility] MCH (RBC) [Entitic mass] 28.7 pg 26.0 - 34.0 pg [facility] MCHC (RBC) [Mass/Vol] 32.9 g/dL 32.0 - 35.9 g/dL [facility] MCV (RBC) [Entitic vol] 87 fL 80 - 100 fL [facility] Platelet mean volume (Bld) [Entitic vol] 8.7 fL 7.5 - 11.2 fL [facility] Platelets (Bld) [#/Vol] 213 10*3/uL 150 - 400 K/uL [facility] RBC (Bld) [#/Vol] 4.80 10*6/uL [facility] WBC (Bld) [#/Vol] 6.3 10*3/uL 4.5 - 11.5 K/uL [facility] COMPLETE BLOOD COUNTon 09-15 Erythrocyte distribution width (RBC) [Ratio] 13.3 % Normal 11.5-14.5 The [facility] Comment on above: Performed By: #### C BC ####S PATHOLOGY [id number] [place], [place], Hematocrit (Bld) [Volume fraction] 41.8 % Normal 41.0-53.0 The [facility] Comment on above: Performed By: #### C BC ####S PATHOLOGY [id number] [place], Hemoglobin (Bld) [Mass/Vol] 13.8 g/dL Low 13.9-16.3 The [facility] Comment on above: Performed By: #### C BC ####S PATHOLOGY [id number] [place], MCH (RBC) [Entitic mass] 28.7 pg Normal 26.0-34.0 The [facility] Comment on above: Performed By: #### C BC ####S PATHOLOGY [id number] [place], MCHC (RBC) [Mass/Vol] 32.9 g/dL Normal 32.0-35.9 The [facility] Comment on above: Performed By: #### C BC ####S PATHOLOGY [id number] [place], MCV (RBC) [Entitic vol] 87 fL Normal 80-100 The [facility] Comment on above: Performed By: #### C BC ####[facility] PATHOLOGY [id number] [place], Platelet mean volume (Bld) [Entitic vol] 8.7 fL Normal 7.5-11.2 The [facility] Comment on above: Performed By: #### C BC ####[facility] PATHOLOGY [id number] [place], Platelets (Bld) [#/Vol] 213 10*3/uL Normal 150-400 The [facility] Comment on above: Performed By: #### C BC ####[facility] PATHOLOGY [id number] [place], RBC (Bld) [#/Vol] 4.80 10*6/uL Normal 4.50-5.90 The [facility] Comment on above: Performed By: #### C BC ####[facility] PATHOLOGY [id number] [place], WBC (Bld) [#/Vol] 6.3 10*3/uL Normal 4.5-11.[address] [facility] Comment on above: Performed By: #### C BC ####[facility] PATHOLOGY [id number] [place], [place], PSE Chartingon 09-15-2023 Fiber Heel Piece Shaper Authentication Interface Message Text Dental Consult The [...] Treatment Dental Treatment in the OR Follow-up [facility] Family Dentistry if needed Note: Legal guardian: Yogesh Li (BROTHER): [phone]. The patient lives in a Facility. A caregiver brushes his teeth twice a day. Ramu Jernigan DDS Normal [facility] Patient Instructionson 09-15 Fiber Heel Piece Shaper Authentication Interface Message Text RECOMMENDATIONS: Patient was instructed on the following: Nothing by mouth after midnight before surgery except following meds with sip of water on AM of surgery: as per anesthesia Stop aspirin 7 days before surgery Stop NSAID 5 days before surgery Stop Vitamin E 10 days prior to surgery Stop alternative/herbal medication 10 days before surgery Normal [facility] Progress Noteson 09-15-2023 Fiber Heel Piece Shaper Authentication Interface Message Text Blood pressure 112/72, [...] [Quetiapine] Latex Allergy: No Surgical Procedure: dental evangelical Surgeon: unknown Date of Surgery: 10/02/2023 HISTORY: [...] DENTAL RESTORATIONS; Surgeon: Grabiel Cummings DDS; Location: [facility] Surgery [place]; Service: Dental EXTRACTION, TOOTH 02/06/2017 Procedure: EXTRACTION, TOOTH; Surgeon: Noé Drew DDS; Location: PERIOPERATIVE SERVICES; Service: Dental UNLISTED PROCEDURE, DENTOALVEOLAR STRUCTURES 04/29/10 X-RAY EXAM OF TEETH. 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 Normal [facility] Fiber Heel Piece Shaper Authentication Interface Message Text Patient was identified by name and date of . Lashon Akin Parsons Normal [facility] Progress Noteson 09-06-2023 Fiber Heel Piece Shaper Authentication Interface Message Text Parent/guardian(Mag gaines @ [place]) was contacted for PSE AND OR scheduled -- confirmed information with mom, also informed mom importance of receiving PSE call -- if not received surgery will be canceled ----- Wednesday, September 06, 2023 at 11:27:36 AM ----- ----- Provider: Bridget Lombardi Specialist -- Clinic: [place] ----- Normal [facility] Follow Up (Endocrinology)on 03-14-2023 Follow Up (Endocrinology) Diagnoses/Problems Assessed Hypothyroidism (244.9) (E03.9) Low vitamin D level (790.6) (R79.89) Hypocalcemia (275.41) (E83.51) Multinodular goiter (241.1) (E04.2) Orders Hypocalcemia, Hypothyroidism, Low vitamin D level Comprehensive Metabolic Panel; Status:Active; Requested for:14Mar2023; Perform:Lab Services - Lab To Draw (Blood Test); Due:64Lwp1058;Ordered ; For:Hypocalcemia, Hypothyroidism, Low vitamin D level; Ordered By:Erin Ogden; Hemoglobin A1C; Status:Active; Requested for:14Mar2023; Perform:Lab Services - Lab To Draw (Blood Test); Due:71Vak4290;Ordered ; For:Hypocalcemia, Hypothyroidism, Low vitamin D level; Ordered By:Erin Ogedn; Osmolality, Serum; Status:Active; Requested for:14Mar2023; Perform:Lab Services - Lab To Draw (Blood Test); Due:17Eks2382;Ordered ; For:Hypocalcemia, Hypothyroidism, Low vitamin D level; Ordered By:Erin Ogden; Osmolality, Urine Spot; Status:Active; Requested for:14Mar2023; Perform:Lab Services - Lab To Draw (Non-Blood Test); Due:91Sqy1472;Ordered ; For:Hypocalcemia, Hypothyroidism, Low vitamin D level; Ordered By:Erin Ogden; TSH WITH REFLEX TO FREE T4 IF ABNORMAL; Status:Active; Requested for:14Mar2023; Perform:Lab Services - Lab To Draw (Blood Test); Due:83Fvp3217;Ordered ; For:Hypocalcemia, Hypothyroidism, Low vitamin D level; Ordered By:Erin Ogden; Vitamin D 25-Hydroxy; Status:Active; Requested for:14Mar2023; Perform:Lab Services - Lab To Draw (Blood Test); Due:93Kei1042;Ordered ; For:Hypocalcemia, Hypothyroidism, Low vitamin D level; Ordered By:Erin Ogden; Multinodular goiter Ultrasound Thyroid; Status:Hold For - Scheduling; Requested for:14Mar2023; Perform: Radiology Services Imaging; Due:12Jun2023;Ordered ; For:Multinodular goiter; Ordered By:Eirn Ogden; Radiologist to Determine Optimal Study : Y What are the patient's signs and symptoms? : f/u Patient Discussion/Summary we will call you with labs Provider Impressions 32 yo male with severe mental retardation, autism, bipolar disorder,severe psychosis,GERD, HTN , hypercalcemia likely 2/2 [facility] with exacerbation by lithium intake [...] visit regarding his thyroid. History of Present Viogvmk39 yo male with severe mental retardation, autism, bipolar disorder,severe psychosis,GERD, HTN , hypercalcemia [facility] 2/2 [facility] with exacerbation by lithium intake [...] then eats a day after. not on Mcewen 300 mg , did not changed since last visit as per sheet . guardian is brother Yogesh nb [phone] seeing GI , EGD was fine. no acute issues. is losing weight again , had a lip biopsy and infected ulcer is healed, weight loss has stopped, on Lt4 50 mcgq day and we need recent albs, slightly more agitated , had a fall with bruise on his face , [place] physician is following. no changes in neuro [...] 01-20-2023 Osmolality [Osmolality] 291 mosm/kg Normal 275-295 [facility] Comment on above: Performed By: #### C MP, T4, TSH #### [facility] [address] [place], [place] [address] Dr. Juan Argueta CBC AUTO DIFFon 01-18-2023 BASO # 0.0 103/ul Normal 0.0-0.1 [facility] Comment on above: Performed By: #### C MP, T4, TSH #### [facility] [address] [place] [address] Dr. Juan Argueta Basophils/100 WBC (Bld) 0.6 % Normal 0.2-2.0 [facility] Comment on above: Performed By: #### C MP, T4, TSH #### [facility] [address] [place] [address] Dr. Juan Argueta EO # 0.1 103/ul Normal 0.0-0.7 [facility] Comment on above: Performed By: #### C MP, T4, TSH #### [facility] [address] [place] [address] Dr. Juan Argueta Eosinophils/100 WBC (Bld) 2.8 % Normal 0.9-7.0 [facility] Comment on above: Performed By: #### C MP, T4, TSH #### [facility] [address] [place] [address] Dr. Juan Argueta Erythrocyte distribution width (RBC) [Ratio] 12.9 % Normal 11.0-15.0 [facility] Comment on above: Performed By: #### C MP, T4, TSH #### [facility] [address] [place] [address] Dr. Juan Argueta Hematocrit (Bld) [Volume fraction] 45.4 % Normal 42.0-54.0 [facility] Comment on above: Performed By: #### C MP, T4, TSH #### [facility] [address] [place] [address] Dr. Juan Argueta Hemoglobin (Bld) [Mass/Vol] 15.4 g/dL Normal 14.0-18.0 [facility] Comment on above: Performed By: #### C MP, T4, TSH #### [facility] [address] [place] [address] Dr. Juan Argueta IG # 0.01 10e3/ul Normal 0.00-0.03 [facility] Comment on above: Performed By: #### C MP, T4, TSH #### [facility] [address] [place] [address] Dr. Juan Argueta IG % 0.2 % Normal 0.0-0.5 [facility] Comment on above: Performed By: #### C MP, T4, TSH #### [facility] [address] [place] [address] Dr. Juan Argueta LYMPH # 1.3 103/ul Normal 1.2-3.8 [facility] Comment on above: Performed By: #### C MP, T4, TSH #### [facility] [address] [place] [address] Dr. Juan Argueta Lymphocytes/100 WBC (Bld) 25.1 % Normal 20.5-60.0 [facility] Comment on above: Performed By: #### C MP, T4, TSH #### [facility] [address] [place] [address] Dr. Juan Argueta MANUAL DIFF REQ NO Normal [facility] Comment on above: Performed By: #### C MP, T4, TSH #### [facility] [address] [place] [address] Dr. Juan Argueta MCH (RBC) [Entitic mass] 28.3 pg Normal 25.9-34.0 [facility] Comment on above: Performed By: #### C MP, T4, TSH #### [facility] [address] [place] [address] Dr. Juan Argueta MCHC (RBC) [Mass/Vol] 33.9 g/dL Normal 29.9-35.2 [facility] Comment on above: Performed By: #### C MP, T4, TSH #### [facility] [address] [place] [address] Dr. Juan Argueta MCV (RBC) [Entitic vol] 83.3 fL Normal 80.0-94.0 [facility] Comment on above: Performed By: #### C MP, T4, TSH #### [facility] [address] [place] [address] Dr. Juan Argueta MONO # 0.3 103/ul Normal 0.3-0.8 [facility] Comment on above: Performed By: #### C MP, T4, TSH #### [facility] [address] [place] [address] Dr. Juan Argueta Monocytes/100 WBC (Bld) 5.9 % Normal 1.7-12.0 [facility] Comment on above: Performed By: #### C MP, T4, TSH #### [facility] [address] [place] [address] Dr. Juan Argueta NEUT # 3.3 103/ul Normal 1.4-6.5 [facility] Comment on above: Performed By: #### C MP, T4, TSH #### [facility] [address] [place] [address] Dr. Juan Argueta Neutrophils/100 WBC (Bld) 65.4 % Normal 43.0-75.0 [facility] Comment on above: Performed By: #### C MP, T4, TSH #### [facility] [address] [place] [address] Dr. Juan Argueta Platelet mean volume (Bld) [Entitic vol] 9.5 fL Normal 9.5-13.5 [facility] Comment on above: Performed By: #### C MP, T4, TSH #### [facility] [address] [place] [address] Dr. Juan Argueta PLT 244 103/ul Normal 150-450 [facility] Comment on above: Performed By: #### C MP, T4, TSH #### [facility] [address] [place] [address] Dr. Juan Argueta RBC 5.45 106/ul Normal 4.70-6.10 [facility] Comment on above: Performed By: #### C MP, T4, TSH #### [facility] [address] [place] [address] Dr. Juan Argueta WBC 5.1 103/ul Normal 4.0-11.0 [facility] Comment on above: Performed By: #### C MP, T4, TSH #### [facility] [address] [place] [address] Dr. Juan Argueta GLYCOHEMOGLOBIN A1Con 2022 ADA RECOMMENDATION SEE BELOW Normal [facility] Comment on above: Result Comment: ADA RECOMMENDED LIMIT 4.0 - 6.0 ADA THERAPEUTIC TARGET < 7.0 ACTION SUGGESTED > 7.0 Performed By: #### C MP, T4, TSH #### [facility] [address] [place] [address] Dr. Juan Argueta Glucose [Mass/Vol] 100 mg/dL Normal [facility] Comment on above: Performed By: #### C MP, T4, TSH #### [facility] [address] [place] [address] Dr. Juan Argueta HbA1c (Bld) [Mass fraction] 5.1 % Normal 4.5-6.2 [facility] Comment on above: Performed By: #### C MP, T4, TSH #### [facility] [address] [place] [address] Dr. Juan Argueta PROF 14(COMP METB)on 023 Albumin [Mass/Vol] 4.2 g/dL Normal 3.4-5.0 [facility] Comment on above: Performed By: #### C MP, T4, TSH #### [facility] [address] [place] [address] Dr. Juan Argueta Albumin/Globulin [Mass ratio] 1.0 {ratio} Normal [facility] Comment on above: Performed By: #### C MP, T4, TSH #### [facility] [address] [place] [address] Dr. Juan Argueta ALP [Catalytic activity/Vol] 152 U/L Critically high 46-116 [facility] Comment on above: Performed By: #### C MP, T4, TSH #### [facility] [address] [place] [address] Dr. Juan Argueta ALT [Catalytic activity/Vol] 34 U/L Normal 16-63 [facility] Comment on above: Performed By: #### C MP, T4, TSH #### [facility] [address] [place] [address] Dr. Juan Argueta Anion gap [Moles/Vol] 12.0 mmol/L Normal [facility] Comment on above: Performed By: #### C MP, T4, TSH #### [facility] [address] [address] [address] Juan Argueta AST [Catalytic activity/Vol] 31 U/L Normal 15-37 [facility] Comment on above: Performed By: #### C MP, T4, TSH #### [facility] [address] [place] [address] Dr. Juan Argueta Bilirubin [Mass/Vol] 0.2 mg/dL Normal 0.2-1.0 [facility] Comment on above: Performed By: #### C MP, T4, TSH #### [facility] [address] [place] [address] Dr. Juan Argueta Calcium [Mass/Vol] 9.4 mg/dL Normal 8.5-10.1 [facility] Comment on above: Performed By: #### C MP, T4, TSH #### [facility] [address] [place] [address] Dr. Juan Argueta Chloride [Moles/Vol] 104 mmol/L Normal 98-107 [facility] Comment on above: Performed By: #### C MP, T4, TSH #### [facility] [address] [place] [address] Dr. Juan Argueta CO2 [Moles/Vol] 26.5 mmol/L Normal 21.0-32.0 [facility] Comment on above: Performed By: #### C MP, T4, TSH #### [facility] [address] [place] [address] Dr. Juan Argueta Creatinine [Mass/Vol] 1.60 mg/dL Critically high 0.70-1.30 [facility] Comment on above: Performed By: #### C MP, T4, TSH #### [facility] [address] [place] [address] Dr. Juan Argueta EGFR-AF PARAGUAYAN >60 Normal >=60 [facility] Comment on above: Performed By: #### C MP, T4, TSH #### [facility] [address] [place] [address] Dr. Juan Argueta EGFR-NON AF PARAGUAYAN 51 mL/min/1.73m2 Critically low >=60 [facility] Comment on above: Performed By: #### C MP, T4, TSH #### [facility] [address] [address] [address] Juan Argueta Globulin (S) [Mass/Vol] 4.1 g/dL Normal [facility] Comment on above: Performed By: #### C MP, T4, TSH #### [facility] [address] [address] [address] Juan Argueta Glucose [Mass/Vol] 95 mg/dL Normal 74-106 [facility] Comment on above: Performed By: #### C MP, T4, TSH #### [facility] [address] [place] [address] Dr. Juan Argueta Potassium [Moles/Vol] 4.5 mmol/L Normal 3.5-5.1 [facility] Comment on above: Performed By: #### C MP, T4, TSH #### [facility] [address] [place] [address] Dr. Juan Argueta Protein [Mass/Vol] 8.3 g/dL Critically high 6.4-8.2 [facility] Comment on above: Performed By: #### C MP, T4, TSH #### [facility] [address] [place] [address] Dr. Juan Argueta Sodium [Moles/Vol] 138 mmol/L Normal 136-145 [facility] Comment on above: Performed By: #### C MP, T4, TSH #### [facility] [address] [place] [address] Dr. Juan Argueta Urea nitrogen [Mass/Vol] 22.0 mg/dL Critically high 7.0-18.0 [facility] Comment on above: Performed By: #### C MP, T4, TSH #### [facility] [address] [place] [address] Dr. Juan Argueta Urea nitrogen/Creatinine [Mass ratio] 13.8 mg/mg [facility] Comment on above: Performed By: #### C MP, T4, TSH #### [facility] [address] [place] [address] Dr. Juan Argueta T4on 01-18-2023 T4 [Mass/Vol] 3.20 ug/dL Critically low 4.50-12.10 [facility] Comment on above: Performed By: #### C MP, T4, TSH #### [facility] [address] [address] [address] Juan Argueta TSHon 01-18-2023 TSH 2.037 uIU/mL Normal 0.358-3.740 [facility] Comment on above: Performed By: #### C MP, T4, TSH #### [facility] [address] [address] [address] Juan Argueta US THYROIDon 01-04-2023 US [...] by: LUIS FERMIN Date: 2023-01-04 15:52 Normal [facility] OSMOLALITYon 10-06-2022 Osmolality [Osmolality] 307 mosm/kg Critically high 275-295 [facility] Comment on above: Performed By: #### C MP, T4, TSH #### [facility] [address] [address] [address] Juan Argueta T3, TOTAL (TRIIODOTHYRONINE) on 10-05-2022 T3, TOTAL 52 ng/dL Critically low 71-180 [facility] Comment on above: Performed By: #### C MP, T4, TSH #### [facility] [address] [address] [address] Juan Argueta GLYCOHEMOGLOBIN A1Con 2021 ADA RECOMMENDATION SEE BELOW Normal [facility] Comment on above: Result Comment: ADA RECOMMENDED LIMIT 4.0 - 6.0 ADA THERAPEUTIC TARGET < 7.0 ACTION SUGGESTED > 7.0 Performed By: #### C MP, T4, TSH #### [facility] [address] [address] [address] Juan Argueta Glucose [Mass/Vol] 105 mg/dL Normal [facility] Comment on above: Performed By: #### C MP, T4, TSH #### [facility] [address] [place] [address] Dr. Juan Argueta HbA1c (Bld) [Mass fraction] 5.3 % Normal 4.5-6.2 [facility] Comment on above: Performed By: #### C MP, T4, TSH #### [facility] [address] [place] [address] Dr. Juan Argueta PROF 14(COMP METB)on 022 Albumin [Mass/Vol] 4.2 g/dL Normal 3.4-5.[address] [facility] Comment on above: Performed By: #### T SH, CMP #### [facility] [address] [place] [address] Dr. Juan Argueta Albumin/Globulin [Mass ratio] 1.1 {ratio} Normal [facility] Comment on above: Performed By: #### T SH, CMP #### [facility] [address] [place] [address] Dr. Juan Argueta ALP [Catalytic activity/Vol] 122 U/L Critically high 46-116 [facility] Comment on above: Performed By: #### T SH, CMP #### [facility] [address] [place] [address] Dr. Juan Argueta ALT [Catalytic activity/Vol] 53 U/L Normal 16-63 [facility] Comment on above: Performed By: #### T SH, CMP #### [facility] [address] [place] [address] Dr. Juan Argueta Anion gap [Moles/Vol] 12.4 mmol/L Normal [facility] Comment on above: Performed By: #### T SH, CMP #### [facility] [address] [place] [address] Dr. Juan Argueta AST [Catalytic activity/Vol] 22 U/L Normal 15-37 [facility] Comment on above: Performed By: #### T SH, CMP #### [facility] [address] [place] [address] Dr. Juan Argueta Bilirubin [Mass/Vol] 0.2 mg/dL Normal 0.2-1.0 [facility] Comment on above: Performed By: #### T SH, CMP #### [facility] [address] [address] [address] Juan Argueta Calcium [Mass/Vol] 9.6 mg/dL Normal 8.5-10.1 [facility] Comment on above: Performed By: #### T SH, CMP #### [facility] [address] [address] [address] Juan Argueta Chloride [Moles/Vol] 108 mmol/L Critically high 98-107 [facility] Comment on above: Performed By: #### T SH, CMP #### [facility] [address] [place] [address] Dr. Juan Argueta CO2 [Moles/Vol] 28.8 mmol/L Normal 21.0-32.0 [facility] Comment on above: Performed By: #### T SH, CMP #### [facility] [address] [address] [address] Juan Argueta Creatinine [Mass/Vol] 1.77 mg/dL Critically high 0.70-1.30 [facility] Comment on above: Performed By: #### T SH, CMP #### [facility] [address] [place] [address] Dr. Juan Argueta EGFR-AF PARAGUAYAN 55 mL/min/1.73m2 Critically low >=60 [facility] Comment on above: Performed By: #### T SH, CMP #### [facility] [address] [address] [address] Juan Argueta EGFR-NON AF PARAGUAYAN 45 mL/min/1.73m2 Critically low >=60 [facility] Comment on above: Performed By: #### T SH, CMP #### [facility] [address] [address] [address] Juan Argueta Globulin (S) [Mass/Vol] 3.7 g/dL Normal [facility] Comment on above: Performed By: #### T SH, CMP #### [facility] [address] [address] [address] Juan Argueta Glucose [Mass/Vol] 94 mg/dL Normal 74-[address] [facility] Comment on above: Performed By: #### T SH, CMP #### [facility] [address] [address] [address] Juan Argueta Potassium [Moles/Vol] 4.2 mmol/L Normal 3.5-5.1 [facility] Comment on above: Performed By: #### T SH, CMP #### [facility] [address] [place] [address] Dr. Juan Argueta Protein [Mass/Vol] 7.9 g/dL Normal 6.4-8.[address] [facility] Comment on above: Performed By: #### T SH, CMP #### [facility] [address] [place] [address] Dr. Juan Argueta Sodium [Moles/Vol] 145 mmol/L Normal 136-[address] [facility] Comment on above: Performed By: #### T SH, CMP #### [facility] [address] [place] [address] Dr. Juan Argueta Urea nitrogen [Mass/Vol] 28.0 mg/dL Critically high 7.0-18.0 [facility] Comment on above: Performed By: #### T SH, CMP #### [facility] [address] [place] [address] Dr. Juan Argueta Urea nitrogen/Creatinine [Mass ratio] 15.8 mg/mg Normal [facility] Comment on above: Performed By: #### T SH, CMP #### [facility] [address] [place] [address] Dr. Juan Argueta TSHon 10-04-2022 TSH 1.456 uIU/mL Normal 0.358-3.740 [facility] Comment on above: Performed By: #### T SH, CMP #### [facility] [address] [place] [address] Dr. Juan Argueta VITAMIN D 25 OHon 10-04-2022 VIT D 25-OH 51.1 ng/mL Normal [facility] Comment on above: Performed By: #### C MP, T4, TSH #### [facility] [address] [place], [place] [address] Dr. Juan Argueta VIT D RANGES SEE BELOW [facility] Comment on above: Result Comment: <20 ng/mL Vit D deficient 20 - <30 ng/mL Vit D insufficient 30 - 100 ng/mL Vit D sufficient >100 ng/mL Potential Toxicity Performed By: #### C MP, T4, TSH #### [facility] [address] [place], [place] [address] Dr. Juan Argueta Follow Up (Endocrinology)on 09-30-2022 Follow Up (Endocrinology) Diagnoses/Problems Assessed Low vitamin D level (790.6) (R79.89) Hypothyroidism (244.9) (E03.9) Hypocalcemia (275.41) (E83.51) Multinodular goiter (241.1) (E04.2) Orders Hypocalcemia, Hypothyroidism, Low vitamin D level, Multinodular goiter Comprehensive Metabolic Panel; Status:Active; Requested for:30Sep2022; Perform:Lab Services - Lab To Draw (Blood Test); Due:[id number];Ordered ; For:Hypocalcemia, Hypothyroidism, Low vitamin D level, Multinodular goiter; Ordered By:Erin Ogden; Hemoglobin A1C; Status:Active; Requested for:30Sep2022; Perform:Lab Services - Lab To Draw (Blood Test); Due:[id number];Ordered ; For:Hypocalcemia, Hypothyroidism, Low vitamin D level, Multinodular goiter; Ordered By:Erin Ogden; Osmolality, Serum; Status:Active; Requested for:30Sep2022; Perform:Lab Services - Lab To Draw (Blood Test); Due:[id number];Ordered ; For:Hypocalcemia, Hypothyroidism, Low vitamin D level, Multinodular goiter; Ordered By:Erin Ogden; Osmolality, Urine Spot; Status:Active; Requested for:30Sep2022; Perform:Lab Services - Lab To Draw (Non-Blood Test); Due:[id number];Ordered ; For:Hypocalcemia, Hypothyroidism, Low vitamin D level, Multinodular goiter; Ordered By:Erin Ogden; TSH WITH REFLEX TO FREE T4 IF ABNORMAL; Status:Active; Requested for:30Sep2022; Perform:Lab Services - Lab To Draw (Blood Test); Due:[id number];Ordered ; For:Hypocalcemia, Hypothyroidism, Low vitamin D level, Multinodular goiter; Ordered By:Erin Ogden; Ultrasound Thyroid; Status:Hold For - Scheduling; Requested for:30Sep2022; Perform: Radiology Services Imaging; Due:[id number];Ordered ; For:Hypocalcemia, Hypothyroidism, Low vitamin D level, Multinodular goiter; Ordered By:Erin Ogden; Radiologist to Determine Optimal Study : Y What are the patient's signs and symptoms? : f/u Vitamin D 25-Hydroxy; Status:Active; Requested for:30Sep2022; Perform:Lab Services - Lab To Draw (Blood Test); Due:[id number];Ordered ; For:Hypocalcemia, Hypothyroidism, Low vitamin D level, [...] low vitamin d levels. History of Present [id number] yo male with severe mental retardation, autism, bipolar disorder,severe psychosis,GERD, HTN , hypercalcemia [facility] 2/2 [facility] with exacerbation by lithium intake [...] then eats a day after. not on Mcewen 300 mg , did not changed since last visit as per sheet . guardian is brother Yogesh nb [phone] seeing GI , EGD was fine. no acute issues. is losing weight again , had a lip biopsy and infected ulcer is healed, weight loss has stopped, on Lt4 50 mcgq day and we need recent albs, slightly more agitated , had a fall with bruise on his face , [place] physician is following. no changes in neuro [...] 09-20-2022 BASO # 0.1 103/ul Normal 0.0-0.1 [facility] Comment on above: Performed By: #### C MP, T4, TSH #### [facility] [address] [place], [place] [address] Dr. Juan Argueta Basophils/100 WBC (Bld) 1.2 % Normal 0.2-2.0 [facility] Comment on above: Performed By: #### C MP, T4, TSH #### [facility] [address] [place] [address] Dr. Juan Argueta EO # 0.2 103/ul Normal 0.0-0.7 [facility] Comment on above: Performed By: #### C MP, T4, TSH #### [facility] [address] [place] [address] Dr. Juan Argueta Eosinophils/100 WBC (Bld) 5.0 % Normal 0.9-7.0 [facility] Comment on above: Performed By: #### C MP, T4, TSH #### [facility] [address] [place] [address] Dr. Juan Argueta Erythrocyte distribution width (RBC) [Ratio] 12.8 % Normal 11.0-15.0 [facility] Comment on above: Performed By: #### C MP, T4, TSH #### [facility] [address] [place] [address] Dr. Juan Argueta Hematocrit (Bld) [Volume fraction] 42.0 % Normal 42.0-54.0 [facility] Comment on above: Performed By: #### C MP, T4, TSH #### [facility] [address] [place] [address] Dr. Juan Argueta Hemoglobin (Bld) [Mass/Vol] 14.0 g/dL Normal 14.0-18.0 [facility] Comment on above: Performed By: #### C MP, T4, TSH #### [facility] [address] [place] [address] Dr. Juan Argueta IG # 0.01 10e3/ul Normal 0.00-0.03 [facility] Comment on above: Performed By: #### C MP, T4, TSH #### [facility] [address] [place] [address] Dr. Juan Argueta IG % 0.2 % Normal 0.0-0.5 [facility] Comment on above: Performed By: #### C MP, T4, TSH #### [facility] [address] [place] [address] Dr. Juan Argueta LYMPH # 1.5 103/ul Normal 1.2-3.8 [facility] Comment on above: Performed By: #### C MP, T4, TSH #### [facility] [address] [place] [address] Dr. Juan Argueta Lymphocytes/100 WBC (Bld) 34.9 % Normal 20.5-60.0 [facility] Comment on above: Performed By: #### C MP, T4, TSH #### [facility] [address] [place] [address] Dr. Juan Argueta MANUAL DIFF REQ NO Normal [facility] Comment on above: Performed By: #### C MP, T4, TSH #### [facility] [address] [place] [address] Dr. Juan Argueta MCH (RBC) [Entitic mass] 29.0 pg Normal 25.9-34.0 [facility] Comment on above: Performed By: #### C MP, T4, TSH #### [facility] [address] [place] [address] Dr. Juan Argueta MCHC (RBC) [Mass/Vol] 33.3 g/dL Normal 29.9-35.2 [facility] Comment on above: Performed By: #### C MP, T4, TSH #### [facility] [address] [place] [address] Dr. Juan Argueta MCV (RBC) [Entitic vol] 87.0 fL Normal 80.0-94.0 [facility] Comment on above: Performed By: #### C MP, T4, TSH #### [facility] [address] [place] [address] Dr. Juan Argueta MONO # 0.3 103/ul Normal 0.3-0.8 [facility] Comment on above: Performed By: #### C MP, T4, TSH #### [facility] [address] [place] [address] Dr. Juan Argueta Monocytes/100 WBC (Bld) 6.8 % Normal 1.7-12.0 [facility] Comment on above: Performed By: #### C MP, T4, TSH #### [facility] [address] [place] [address] Dr. Juan Argueta NEUT # 2.2 103/ul Normal 1.4-6.5 [facility] Comment on above: Performed By: #### C MP, T4, TSH #### [facility] [address] [place] [address] Dr. Juan Argueta Neutrophils/100 WBC (Bld) 51.9 % Normal 43.0-75.0 [facility] Comment on above: Performed By: #### C MP, T4, TSH #### [facility] [address] [place] [address] Dr. Juan Argueta Platelet mean volume (Bld) [Entitic vol] 10.1 fL Normal 9.5-13.5 [facility] Comment on above: Performed By: #### C MP, T4, TSH #### [facility] [address] [place] [address] Dr. Juan Argueta PLT 252 103/ul Normal 150-450 [facility] Comment on above: Performed By: #### C MP, T4, TSH #### [facility] [address] [place] [address] Dr. Juan Argueta RBC 4.83 106/ul Normal 4.70-6.10 [facility] Comment on above: Performed By: #### C MP, T4, TSH #### [facility] [address] [place] [address] Dr. Juan Argueta WBC 4.2 103/ul Normal 4.0-11.0 [facility] Comment on above: Performed By: #### C MP, T4, TSH #### [facility] [address] [place] [address] Dr. Juan Argueta FREE T4on 09-20-2022 Free T4 [Mass/Vol] 0.50 ng/dL Critically low 0.76-1.46 [facility] Comment on above: Performed By: #### B 12FOL, FT4 #### [facility] [address] [place] [address] Dr. Juan Argueta PROF 14(COMP METB)on 022 Albumin [Mass/Vol] 4.1 g/dL Normal 3.4-5.0 [facility] Comment on above: Performed By: #### C MP, T4, TSH #### [facility] [address] [address] [address] Juan Argueta Albumin/Globulin [Mass ratio] 1.1 {ratio} Normal [facility] Comment on above: Performed By: #### C MP, T4, TSH #### [facility] [address] [address] [address] Juan Argueta ALP [Catalytic activity/Vol] 107 U/L Normal 46-116 [facility] Comment on above: Performed By: #### C MP, T4, TSH #### [facility] [address] [place] [address] Dr. Juan Argueta ALT [Catalytic activity/Vol] 79 U/L Critically high 16-63 [facility] Comment on above: Performed By: #### C MP, T4, TSH #### [facility] [address] [address] [address] Juan Argueta Anion gap [Moles/Vol] 8.4 mmol/L Normal [facility] Comment on above: Performed By: #### C MP, T4, TSH #### [facility] [address] [place] [address] Dr. Juan Argueta AST [Catalytic activity/Vol] 32 U/L Normal 15-37 [facility] Comment on above: Performed By: #### C MP, T4, TSH #### [facility] [address] [address] [address] Juan Argueta Bilirubin [Mass/Vol] 0.2 mg/dL Normal 0.2-1.0 [facility] Comment on above: Performed By: #### C MP, T4, TSH #### [facility] [address] [place] [address] Dr. Juan Argueta Calcium [Mass/Vol] 9.2 mg/dL Normal 8.5-10.1 [facility] Comment on above: Performed By: #### C MP, T4, TSH #### [facility] [address] [place] [address] Dr. Juan Argueta Chloride [Moles/Vol] 104 mmol/L Normal 98-107 [facility] Comment on above: Performed By: #### C MP, T4, TSH #### [facility] [address] [place] [address] Dr. Juan Argueta CO2 [Moles/Vol] 30.2 mmol/L Normal 21.0-32.0 [facility] Comment on above: Performed By: #### C MP, T4, TSH #### [facility] [address] [place] [address] Dr. Juan Argueta Creatinine [Mass/Vol] 1.67 mg/dL Critically high 0.70-1.30 [facility] Comment on above: Performed By: #### C MP, T4, TSH #### [facility] [address] [place] [address] Dr. Juan Argueta EGFR-AF PARAGUAYAN 58 mL/min/1.73m2 Critically low >=60 [facility] Comment on above: Performed By: #### C MP, T4, TSH #### [facility] [address] [place] [address] Dr. Juan Argueta EGFR-NON AF PARAGUAYAN 48 mL/min/1.73m2 Critically low >=60 [facility] Comment on above: Performed By: #### C MP, T4, TSH #### [facility] [address] [place] [address] Dr. Juan Argueta Globulin (S) [Mass/Vol] 3.6 g/dL Normal [facility] Comment on above: Performed By: #### C MP, T4, TSH #### [facility] [address] [place] [address] Dr. Juan Argueta Glucose [Mass/Vol] 94 mg/dL Normal 74-106 [facility] Comment on above: Performed By: #### C MP, T4, TSH #### [facility] [address] [place] [address] Dr. Juan Argueta Potassium [Moles/Vol] 4.6 mmol/L Normal 3.5-5.1 [facility] Comment on above: Performed By: #### C MP, T4, TSH #### [facility] [address] [place] [address] Dr. Juan Argueta Protein [Mass/Vol] 7.7 g/dL Normal 6.4-8.2 [facility] Comment on above: Performed By: #### C MP, T4, TSH #### [facility] [address] [place] [address] Dr. Juan Argueta Sodium [Moles/Vol] 138 mmol/L Normal 136-145 [facility] Comment on above: Performed By: #### C MP, T4, TSH #### [facility] [address] [place] [address] Dr. Juan Argueta Urea nitrogen [Mass/Vol] 28.0 mg/dL Critically high 7.0-18.0 [facility] Comment on above: Performed By: #### C MP, T4, TSH #### [facility] [address] [place] [address] Dr. Juan Argueta Urea nitrogen/Creatinine [Mass ratio] 16.8 mg/mg Normal [facility] Comment on above: Performed By: #### C MP, T4, TSH #### [facility] [address] [place] [address] Dr. Juan Argueta TSHon 09-20-2022 TSH 1.895 uIU/mL Normal 0.358-3.740 [facility] Comment on above: Performed By: #### C MP, T4, TSH #### [facility] [address] [place] [address] Dr. Juan Argueta VIT B12 AND FOLATEon 022 Cobalamin (Vitamin B12) [Mass/Vol] 350.0 pg/mL Normal 193.0-986.0 [facility] Comment on above: Performed By: #### B 12FOL, FT4 #### [facility] [address] [place] [address] Dr. Juan Argueta FOLATE 16.40 ng/mL Normal 8.60-58.90 [facility] Comment on above: Performed By: #### B 12FOL, FT4 #### [facility] [address] [place] [address] Dr. Juan Argueta VITAMIN D 25 OHon 09-20-2022 VIT D 25-OH 49.9 ng/mL Normal [facility] Comment on above: Performed By: #### V ITAD #### [facility] [address] [place] [address] Dr. Juan Argueta VIT D RANGES SEE BELOW Normal [facility] Comment on above: Result Comment: <20 ng/mL Vit D deficient 20 - <30 ng/mL Vit D insufficient 30 - 100 ng/mL Vit D sufficient >100 ng/mL Potential Toxicity Performed By: #### V ITAD #### [facility] [address] [place] [address] Dr. Juan Argueta CBC AUTO DIFFon 09-10-2022 BASO # 0.0 103/ul Normal 0.0-0.1 [facility] Comment on above: Performed By: #### C BC #### [facility] [address] [place] [address] Dr. Juan Argueta Basophils/100 WBC (Bld) 0.3 % Normal 0.2-2.0 [facility] Comment on above: Performed By: #### C BC #### [facility] [address] [place] [address] Dr. Juan Argueta EO # 0.1 103/ul Normal 0.0-0.7 [facility] Comment on above: Performed By: #### C BC #### [facility] [address] [place] [address] Dr. Juan Argueta Eosinophils/100 WBC (Bld) 1.5 % Normal 0.9-7.0 [facility] Comment on above: Performed By: #### C BC #### [facility] [address] [place] [address] Dr. Juan Argueta Erythrocyte distribution width (RBC) [Ratio] 12.8 % Normal 11.0-15.0 [facility] Comment on above: Performed By: #### C BC #### [facility] [address] [place] [address] Dr. Juan Argueta Hematocrit (Bld) [Volume fraction] 38.6 % Critically low 42.0-54.0 [facility] Comment on above: Performed By: #### C BC #### [facility] [address] [address] [address] Juan Argueta Hemoglobin (Bld) [Mass/Vol] 13.2 g/dL Critically low 14.0-18.0 [facility] Comment on above: Performed By: #### C BC #### [facility] [address] [address] [address] Juan Argueta IG # 0.02 10e3/ul Normal 0.00-0.03 [facility] Comment on above: Performed By: #### C BC #### [facility] [address] [place] [address] Dr. Juan Argueta IG % 0.2 % Normal 0.0-0.5 [facility] Comment on above: Performed By: #### C BC #### [facility] [address] [place] [address] Dr. Juan Argueta LYMPH # 0.9 103/ul Critically low 1.2-3.8 [facility] Comment on above: Performed By: #### C BC #### [facility] [address] [place] [address] Dr. Juan Argueta Lymphocytes/100 WBC (Bld) 10.0 % Critically low 20.5-60.0 [facility] Comment on above: Performed By: #### C BC #### [facility] [address] [place] [address] Dr. Juan Argueta MANUAL DIFF REQ NO Normal [facility] Comment on above: Performed By: #### C BC #### [facility] [address] [place] [address] Dr. Juan Argueta MCH (RBC) [Entitic mass] 29.2 pg Normal 25.9-34.0 [facility] Comment on above: Performed By: #### C BC #### [facility] [address] [place] [address] Dr. Juan Argueta MCHC (RBC) [Mass/Vol] 34.2 g/dL Normal 29.9-35.2 [facility] Comment on above: Performed By: #### C BC #### [facility] [address] [address] [address] Juan Argueta MCV (RBC) [Entitic vol] 85.4 fL Normal 80.0-94.0 [facility] Comment on above: Performed By: #### C BC #### [facility] [address] [address] [address] Juan Argueta MONO # 0.5 103/ul Normal 0.3-0.8 [facility] Comment on above: Performed By: #### C BC #### [facility] [address] [address] [address] Juan Argueta Monocytes/100 WBC (Bld) 5.3 % Normal 1.7-12.0 [facility] Comment on above: Performed By: #### C BC #### [facility] [address] [address] [address] Juan Argueta NEUT # 7.4 103/ul Critically high 1.4-6.5 [facility] Comment on above: Performed By: #### C BC #### [facility] [address] [address] [address] Juan Argueta Neutrophils/100 WBC (Bld) 82.7 % Critically high 43.0-75.0 [facility] Comment on above: Performed By: #### C BC #### [facility] [address] [address] [address] Juan Argueta Platelet mean volume (Bld) [Entitic vol] 9.8 fL Normal 9.5-13.5 [facility] Comment on above: Performed By: #### C BC #### [facility] [address] [address] [address] Juan Argueta PLT 226 103/ul Normal 150-450 [facility] Comment on above: Performed By: #### C BC #### [facility] [address] [address] [address] Juan Argueta RBC 4.52 106/ul Critically low 4.70-6.10 [facility] Comment on above: Performed By: #### C BC #### [facility] [address] [place] [address] Dr. Juan Argueta WBC 8.9 103/ul Normal 4.0-11.0 [facility] Comment on above: Performed By: #### C BC #### [facility] [address] [place] [address] HEAD WO CONon [...] JON PARKS Date: 2022-09-10 12:09 Normal [facility] PROF 14(COMP METB)on 022 Albumin [Mass/Vol] 4.1 g/dL Normal 3.4-5.0 [facility] Comment on above: Performed By: #### C MP #### [facility] [address] [place] [address] Dr. Juan Argueta Albumin/Globulin [Mass ratio] 1.2 {ratio} Normal [facility] Comment on above: Performed By: #### C MP #### [facility] [address] [place] [address] Dr. Juan Argueta ALP [Catalytic activity/Vol] 100 U/L Normal 46-116 [facility] Comment on above: Performed By: #### C MP #### [facility] [address] [place] [address] Dr. Juan Argueta ALT [Catalytic activity/Vol] 39 U/L Normal 16-63 [facility] Comment on above: Performed By: #### C MP #### [facility] [address] [address] [address] Juan Argueta Anion gap [Moles/Vol] 16.5 mmol/L Normal [facility] Comment on above: Performed By: #### C MP #### [facility] [address] [address] [address] Juan Argueta AST [Catalytic activity/Vol] 35 U/L Normal 15-37 [facility] Comment on above: Performed By: #### C MP #### [facility] [address] [address] [address] Juan Argueta Bilirubin [Mass/Vol] 0.3 mg/dL Normal 0.2-1.0 [facility] Comment on above: Performed By: #### C MP #### [facility] [address] [address] [address] Juan Argueta Calcium [Mass/Vol] 8.2 mg/dL Critically low 8.5-10.1 [facility] Comment on above: Performed By: #### C MP #### [facility] [address] [address] [address] Juan Argueta Chloride [Moles/Vol] 101 mmol/L Normal 98-107 [facility] Comment on above: Performed By: #### C MP #### [facility] [address] [address] [address] Juan Argueta CO2 [Moles/Vol] 18.8 mmol/L Critically low 21.0-32.0 [facility] Comment on above: Performed By: #### C MP #### [facility] [address] [address] [address] Juan Argueta Creatinine [Mass/Vol] 1.37 mg/dL Critically high 0.70-1.30 [facility] Comment on above: Performed By: #### C MP #### [facility] [address] [address] [address] Juan Argueta EGFR-AF PARAGUAYAN >60 Normal >=60 [facility] Comment on above: Performed By: #### C MP #### [facility] [address] [place] [address] Dr. Juan Argueta EGFR-NON AF PARAGUAYAN >60 Normal >=60 [facility] Comment on above: Performed By: #### C MP #### [facility] [address] [address] [address] Juan Argueta Globulin (S) [Mass/Vol] 3.3 g/dL Normal [facility] Comment on above: Performed By: #### C MP #### [facility] [address] [address] [address] Juan Argueta Glucose [Mass/Vol] 103 mg/dL Normal 74-106 [facility] Comment on above: Performed By: #### C MP #### [facility] [address] [place] [address] Dr. Juan Argueta Potassium [Moles/Vol] 4.3 mmol/L Normal 3.5-5.1 [facility] Comment on above: Performed By: #### C MP #### [facility] [address] [place] [address] Dr. Juan Argueta Protein [Mass/Vol] 7.4 g/dL Normal 6.4-8.2 [facility] Comment on above: Performed By: #### C MP #### [facility] [address] [place] [address] Dr. Juan Argueta Sodium [Moles/Vol] 132 mmol/L Critically low 136-145 [facility] Comment on above: Performed By: #### C MP #### [facility] [address] [place] [address] Dr. Juan Argueta Urea nitrogen [Mass/Vol] 23.0 mg/dL Critically high 7.0-18.0 [facility] Comment on above: Performed By: #### C MP #### [facility] [address] [place] [address] Dr. Juan Argueta Urea nitrogen/Creatinine [Mass ratio] 16.8 mg/mg Normal [facility] Comment on above: Performed By: #### C MP #### [facility] [address] [place] [address] HEAD WO CONon [...] by: RISA PENNY Date: 2022-07-19 10:21 Normal [facility] Follow Up (Endocrinology)on 03-25-2022 Follow Up (Endocrinology) [...] Services - Lab To Draw (Blood Test); Due:[id number];Ordered ; For: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, Hypocalcemia, [...] visit hypothyrpidism and hypercalcemia History of Present [age]keisj39 yo male with severe mental retardation, autism, bipolar disorder,severe psychosis,GERD, HTN , hypercalcemia [facility] 12/15 [facility] with exacerbation by lithium intake [...] then eats a day after. not on Mcewen 300 mg , did not changed since last visit as per sheet . guardian is brother Yogesh nb [phone] seeing GI , EGD was fine. no acute issues. is losing weight again , had a lip biopsy and infected ulcer is healed, weight loss has stopped, on Lt4 50 mcgq day and we need recent albs, slightly more agitated , had a fall with bruise on his face , [place] physician is following. no changes in neuro exam. TSH was normal on labs , , calcium and sodium normal, no acute issues (more content not included)... Normal [employer] XR MODIFIED BARIUM SWALLOWon 09-11-2020 No radiographic evidence of tracheal aspiration. For further information as well as dietary recommendations, please refer to the speech pathologist's detailed report. [employer] Workstation ID: [id number] [facility] EXAMINATION: XR MODIFIED BARIUM SWALLOW HISTORY: [...] no evidence of penetration or tracheal aspiration. [facility] Interface, Rad In [facility] Speechq - 09/11/2020 10:03 PM EDT EXAMINATION: [...] refer to the speech pathologist's detailed report. [employer] Workstation ID: [id number] [facility] XR MODIFIED BARIUM SWALLOW EXAMINATION: XR [...] refer to the speech pathologist's detailed report. [employer] Workstation ID: [id number] Dictated by: BRANDAN CERVANTES on MonSep 11, 2020 2:10:21 PM EDT Transcribed by: BONIFACIO IBARRA on MonSep 11, 2020 2:53:24 PM EDT Finalized by: BRANDAN CERVANTES on MonSep 11, 2020 10:00:27 PM EDT [facility] Comment on above: Order Comment: Miriam hung Injury/Trauma or Illness?:Illness/Other How long have you had these symptoms (acute/chronic)?:Chronic Reason for exam?:Pharyngeal dysphagia Type of Exam?:Ongoing Additional signs and symptoms?:Pharyngeal dysphagia Fluoro time in minutes:1.05 Fluoro dose in mGy?:36.08 COVID-19, MOLECULARon 2019 SARS-COV-2 (CEPHEID) Not Detected Normal Not Detected [facility] Comment on above: Result Comment: This test was performed under the FDA's Emergency Use Authorization (EUA). Testing was performed using the Xpert Xpress SARS-CoV-2 Cepheid assay on the GeneXMASS-ACTIVE [employer] Dx platform. This test has not been approved for use in asymptomatic patients and its performance in this patient population has not been evaluated. Negative results do not rule out the presence of SARS-CoV-2/COVID-19. Fact sheets for this EUA can be found at the following links: For Healthcare Providers: https://www.fda.gov/media/737069/download For Patients: https://www.fda.gov/media/805840/download Performed By: #### L [id number] #### [facility] [address] [place] [address] Rustam Morillo M[address]D. [id number] CT ABDOMEN PELVIS W IV CONTR Vicky [...] Grabiel Aleman MD 08/09/19 Final result Normal [facility] Surgical Pathologyon 10-17-2 018 Surgical Pathology (NOTE) [id number] [place] [address] SURGICAL PATHOLOGY REPORT Patient Name: MARKEL LI MR#: [id number] Specimen #[id number] Final Diagnosis SPECIMEN A : SMALL BOWEL, [...] loss; EGD biopsy; colonoscopy, hemorrhoids; formalin time: U=4406, D=1155 Source: A: Small bowel biopsies B: Gastric [...] examination confirms the final pathologic diagnosis. Normal [facility] Comment on above: Performed By: #### P PPES #### [facility] [address] [place] [address] Vital Signs Date Time Vital Sign Value Performing Clinician Faci lity 11-15-2023 10:44-0500 Body height 182.9 cm Bree Whiting MD Work Phone: [facility] 11-15-2023 10:44-0500 Body mass index (BMI) [Ratio] 27.67 kg/m2 Bree Whiting MD Work Phone: [facility] 11-15-2023 10:44-0500 Body weight 92.53 kg Bree Whiting MD Work Phone: [facility] 10-02-2023 15:17-0500 Body temperature 96.8 [degF] Tyrese Alexander DDS Work Phone: [facility] 10-02-2023 15:17-0500 Diastolic blood pressure 91 mm[Hg] Tyrese Alexander DDS Work Phone: [facility] 10-02-2023 15:17-0500 Heart rate 58 /min Tyrese Alexander DDS Work Phone: [facility] 10-02-2023 15:17-0500 Respiratory rate 22 /min Tyrese Alexander DDS Work Phone: [facility] 10-02-2023 15:17-0500 SaO2% (BldA) [Mass fraction] 100 % Tyrese Alexander DDS Work Phone: [facility] 10-02-2023 15:17-0500 Systolic blood pressure 141 mm[Hg] Tyrese Alexander DDS Work Phone: [facility] 10-02-2023 11:35-0500 Body height 177.8 cm Tyrese Alexander DDS Work Phone: [facility] 10-02-2023 11:35-0500 Body mass index (BMI) [Ratio] 29.27 kg/m2 Tyrese Alexander DDS Work Phone: [facility] 10-02-2023 11:35-0500 Body weight 92.53 kg Tyrese Alexander DDS Work Phone: [facility] 09-15-2023 15:07-0400 Body height 179 cm Bola Claire MD Work Phone: [facility] 09-15-2023 15:07-0400 Body mass index (BMI) [Ratio] 28.97 kg/m2 Bola Claire MD Work Phone: [facility] 09-15-2023 15:07-0400 Body temperature 97.7 [degF] Bola Claire MD Work Phone: [facility] 09-15-2023 15:07-0400 Body weight 92.81 kg Bola Claire MD Work Phone: [facility] 09-15-2023 15:07-0400 Diastolic blood pressure 72 mm[Hg] [facility] 09-15-2023 15:07-0400 Heart rate 58 /min Bola Claire [facility] 09-15-2023 15:07-0400 Respiratory rate 32 /min Bola Claire [facility] 09-15-2023 15:07-0400 SaO2% (BldA) [Mass fraction] 99 % [facility]ola [facility] 09-15-2023 15:07-0400 Systolic blood pressure 112 mm[Hg] Bola Claire [facility] 03-20-2019 12:52-0400 BMI (Body Mass Index) 22.24 kg/m2 Erin Harveyhi GO-Fbszhehiufsut-AKE [place] [address] Work Phone: 03-20-2019 12:52-0400 Body weight 74.39 kg Erin Pan MH-Tezmalgqckpal-LQG [place] [address] Work Phone: 03-20-2019 12:52-0400 BP Diastolic 72 mm[Hg] Erin Harveyhi IF-Bpqaajkyupquv-IAD [place] [address] Work Phone: 03-20-2019 12:52-0400 BP Systolic 103 mm[Hg] Erin Harveyhi LA-Qshhjrowdmzqg-IWH [place] [address] Work Phone: 03-20-2019 12:52-0400 BSA (Body Surface Area) 1.96 m2 Erin Harveyhi GI-Dkhezchqjlduy-RUK [place] [address] Work Phone: 03-20-2019 12:52-0400 Height 182.88 cm Erin Pan VX-Zfqpuovhuytcj-YAV [place] [address] Work Phone: 03-20-2019 12:52-0400 Pulse (Heart Rate) 62 /min Erin Harveyhi VG-Muwzvtkoivmlb-PGA [place] [address] Work Phone: 03-20-2019 12:52-0400 Pulse Oximetry 100 % Erin Davenportollaelizabeth QU-Ktaoyohkvpbre-LIK [place] [address] Work Phone: 03-20-2019 12:52-0400 Respiratory Rate 14 /min Erin Davenportollaelizabeth AX-Cocftkldacnud-XXW [place] [address] Work Phone: Encounters Encounter Date Encounter Type Care Provider Facility Start: 05-15-2024 End: 05-15-2024 ambulatory [facility] Start: 12-15-2023 End: 12-16-2023 ambulatory [facility] Start: 11-15-2023 End: 11-15-2023 ambulatory [facility] Start: 11-15-2023 End: 11-15-2023 Office outpatient visit 25 minutes Bree Whiting MD Work Phone: [facility] [place] Comment on above: Hypercalcemia (Prima ry Dx); Hypothyroidism, unspecified type Start: 10-02-2023 End: 10-02-2023 ambulatory TYRESE ALEXANDER Facility:[facility] Start: 10-02-2023 End: 10-02-2023 Subsequent hospital visit by physician Tyrese Alexander DDS Work Phone: [facility] Start: 10-02-2023 End: 10-03-2023 ambulatory UNKNOWN PROVIDER Facility:[facility] Start: 10-02-2023 End: 10-03-2023 Patient encounter procedure Tyrese Alexander DDS Work Phone: [facility] Start: 09-27-2023 Telephone encounter Cheri mercado RN [facility] Pre Surgical Evaluation Start: 09-19-2023 Telephone encounter Lina rubin RN [facility] Pre Surgical Evaluation Comment on above: Pre-surgical Evaluat ion (Informed Consent & Anesthesia consent obtained) Start: 09-15-2023 Encounter for other preprocedural examination UNKNOWN PROVIDER [facility] Start: 09-15-2023 End: 09-15-2023 ambulatory UNKNOWN PROVIDER Facility:[facility] Start: 09-15-2023 End: 09-15-2023 Patient encounter procedure Pse Anesthesia [facility] Pre Surgical Evaluation Comment on above: Pre-op evaluation (P rimary Dx) Start: 09-15-2023 Admission to [facility] Ramu Singh Marciomaru DDS Work Phone: [facility] Start: 09-15-2023 End: 09-15-2023 Office outpatient visit 25 minutes Bola Claire MD Work Phone: [facility] Comment on above: Pre-op exam (Primary Dx); Body mass index (BMI) 28.0-28.9, adult Start: 09-15-2023 End: 09-15-2023 Preprocedural examination done Bola Claire MD Work Phone: [facility] Work Phone: Start: 08-18-2023 Admission to [facility] Carline Mcfarland DDS Work Phone: [facility] Start: 03-14-2023 ambulatory Erin Pan Facility:[id number] Start: 01-18-2023 End: 01-19-[address] RALEIGH EPPS Facility:[facility] Start: 01-04-2023 End: 01-05-[address] RALEIGH EPPS Facility:[facility] Start: 10-04-2022 End: 10-05-[address] DOCTOR MULLER Facility:[facility] Start: 09-30-2022 Office outpatient vi sit 15 minutes Sai Batres Work Phone: [facility] Work Phone: Start: 09-30-2022 ambulatory Erin Pan Facility:[id number] Start: 09-20-2022 End: 09-21-[address] RALEIGH EPPS Facility:[facility] Start: 09-10-2022 End: 09-10-[address] WES Soni Facility:[facility] Start: 07-19-2022 End: 07-19-[address] RALEIGH EPPS Facility:[facility] Start: 03-25-2022 ambulatory Erin Pan Facility:[id number] Start: 03-16-2022 End: 03-21-2022 Patient encounter procedure Viry Ortiz RDH Work Phone: [facility] Start: 03-07-2022 End: 03-07-2022 ambulatory JAYDE NUNEZ . Facility:[facility] Start: 09-11-2020 End: 09-12-2020 Patient encounter procedure [facility] Start: 09-11-2020 End: 09-11-2020 Subsequent hospital visit by physician Raleigh Epps Work Phone: [facility] Comment on above: Pharyngeal dysphagia Start: 09-07-2020 End: 09-07-2020 Patient encounter procedure RALEIGH Anthony [facility] Start: 08-09-2019 End: 08-12-2019 Patient encounter procedure [facility] Start: 03-20-2019 Patient encounter procedure Erin Duke Nematollahi IA-Zjraqeswfbgmy-MZL [place] [address] Work Phone: Start: 11-21-2018 Patient encounter procedure Erinalva Wall Nematollahi HY-Uhpqatvjruzav-QBM [place] [address] Work Phone: Start: 08-29-2018 End: 08-29-2018 Patient encounter procedure [facility] Start: 08-15-2018 Patient encounter procedure Erinalva Wall Nematollahi SN-Ptlyunxmcfkth-STT [place] [address] Work Phone: Start: 03-16-2018 Patient encounter procedure Erin Duke Nematollahi PT-Twpocpgchftvm-EVB [place] [address] Work Phone: Start: 11-17-2017 Patient encounter procedure Erin Duke Nematollahi KQ-Olvugyitbfahj-AZM [place] [address] Work Phone: Start: 05-26-2017 Patient encounter procedure Erin Duke Nematollahi YB-Tbzcczyfbzskv-IXE [place] [address] Work Phone: Procedures Date Procedure Procedure [...] WHITING Start: 09-15-2023 Blood count complete automated Bola Claire MD Work Phone: Start: 09-11-2020 Videofluoroscopy [...] f 2) Zoster Vaccines (1 of 2) [facility] Start: 03-07-2032 DTaP/Tdap/Td Vaccine s (9 - Td or Tdap) DTaP/Tdap/Td Vaccines (9 - Td or Tdap) [facility] Start: 11-15-2026 Tetanus vaccination [facility] Start: 09-15-2024 Creatinine measurement Basic Metabol ic Panel [facility] Start: 05-15-2024 End: 05-15-2024 Patient encounter procedure 05/15/2024 11:40 AM EDT Office Visit [facility] [address] [address] [address] [place] [address] [place] [address] [address] Department of [place] [address] [facility] [place] Start: 11-15-2023 End: 11-15-2024 Calcitriol [Mass/volume] in Serum or Plasma Vitamin D 1,25 Dihydroxy (for eval of hypercalcemia) Lab Routine Hypercalcemia Expected: 11/15/2023, Expires: 11/15/2024 [facility] Work Phone: Comment on above: Expected: 11/15/2023 , Expires: 11/15/2024 Start: 11-15-2023 End: 11-15-2024 Calcium.ionized [Moles/volume] in Blood Calcium, Ionized Lab Routine Hypercalcemia Expected: 11/15/2023, Expires: 11/15/2024 [facility] Work Phone: Comment on above: Expected: 11/15/2023 , Expires: 11/15/2024 Start: 11-15-2023 End: 11-15-2024 Hepatic function 2000 panel - Serum or Plasma Hepatic Function Panel Lab Routine Hypercalcemia Expected: 11/15/2023, Expires: 11/15/2024 [facility] Work Phone: Comment on above: Expected: 11/15/2023 , Expires: 11/15/2024 Start: 11-15-2023 End: 11-15-2024 Parathyrin.intact [Mass/volume] in Serum or Plasma Parathyroid Hormone, Intact Lab Routine Hypercalcemia Expected: 11/15/2023, Expires: 11/15/2024 [facility] Service Area Work Phone: Comment on above: Expected: 11/15/2023 , Expires: 11/15/2024 Start: 11-15-2023 End: 11-15-2024 Renal function 2000 panel - Serum or Plasma Renal Function Panel Lab Routine Hypercalcemia Expected: 11/15/2023, Expires: 11/15/2024 [facility] Work Phone: Comment on above: Expected: 11/15/2023 , Expires: 11/15/2024 Start: 11-15-2023 End: 11-15-2024 Thyrotropin [Units/volume] in Serum or Plasma Thyroid Stimulating Hormone Lab Routine Hypothyroidism, unspecified type Expected: 11/15/2023, Expires: 11/15/2024 [facility] Work Phone: Comment on above: Expected: 11/15/2023 , Expires: 11/15/2024 Start: 11-15-2023 End: 11-15-2024 Thyroxine (T4) free [Mass/volume] in Serum or Plasma Thyroxine, Free Lab Routine Hypothyroidism, unspecified type Expected: 11/15/2023, Expires: 11/15/2024 [facility] Work Phone: Comment on above: Expected: 11/15/2023 , Expires: 11/15/2024 Start: 10-02-2023 End: 10-02-2023 DENTAL RESTORATIONS DENTAL RESTORATIONS Routine scheduled Caries 10/02/2023 1:10 PM EST [facility] Start: 10-02-2023 End: 10-02-2023 Admission to same day surgery center 10/02/2023 11:24 AM EST - 10/02/2023 1:21 PM EST Surgery [facility] [address] [place] [address] Tyrese Alexander, DDS [address] [place] [address] DENTAL RESTORATIONS [facility] Comment on above: DENTAL RESTORATIONS Start: 10-02-2023 End: 10-02-2023 DENTAL RESTORATIONS DENTAL RESTORATIONS Routine scheduled Caries 10/02/2023 11:24 AM EST [facility] Start: 10-02-2023 End: 10-02-2023 Admission to same day surgery center 10/02/2023 7:30 AM EST - 10/02/2023 9:27 AM EST Surgery [facility] [address] [place] [id number] Tyrese Alexander, DDS [address] [place] [id number] DENTAL RESTORATIONS [facility] Surgery Comment on above: DENTAL RESTORATIONS Start: 10-02-2023 End: 10-02-2023 DENTAL RESTORATIONS DENTAL RESTORATIONS Routine scheduled Caries 10/02/2023 7:30 AM EST [facility] Start: 10-02-2023 Subsequent hospital visit by physician [facility] Start: 10-02-2023 End: 10-02-2023 Patient encounter procedure [facility] Start: 09-15-2023 End: 09-15-2023 Patient encounter procedure 09/15/2023 2:00 PM EDT Office Visit [facility] [address] [place] [address] Bola Claire MD [address] [place] [address] [facility] Start: 07-14-2023 COVID-19 Vaccine ( season) COVID-19 Vaccine ( season) [facility] Start: 07-14-2023 Influenza vaccination Influenza Vacc ine (#1) [facility] Start: 02-09-2021 COVID-19 Vaccine (3 - Pfizer series) COVID-19 Vaccine (3 - Pfizer series) [facility] Start: 07-14-2020 Influenza vaccinatio n given Sequential Influenza Vaccine (#1) [facility] Start: 08-15-2019 Thyroid stimulating hormone measurement TSH Level [facility] Start: 2018 HPV Vaccine (optiona l start 27-45 years) HPV Vaccine (optional start 27-45 years) [facility] Start: 07-14-2013 Annual wellness visit Annual W ellness Visit (G0438) [facility] Start: 10-28-2009 Varicella vaccination Varicell a Vaccines (1 of 2 - 2-dose childhood series) [facility] Start: 2009 Hepatitis C antibody , confirmatory test Hepatitis C Screening [facility] Start: 2009 Hepatitis C screening [facility] Start: 2006 HIV screening [facility] Start: 1994 History and physical examination, annual for health maintenance Wellness Visit [facility] Start: 1991 Basic metabolic 2000 panel - Serum or Plasma Basic Metabolic Panel [facility] Start: 1991 Creatinine measurement Basic Metabol ic Panel [facility] Start: 1991 Hepatitis B Vaccines (1 of 3 - 3-dose series) Hepatitis B Vaccines (1 of 3 - 3-dose series) [facility] Start: 1991 HIV screening HIV Screening [facility] Start: 1991 Lipid panel Lipid Panel [facility] Start: 1991 Medicare Annual Wellness Visit Medicare Annual Wellness Visit (AWV) [facility] Start: 1991 Tetanus vaccination Tetanus: Every 1 0yrs [facility] Start: 1991 Thyroid stimulating hormone measurement TSH [facility] End: 09-15-2024 Basic metabolic 2000 panel - Serum or Plasma BASIC METABOLIC PANEL Lab Routine Pre-op exam 1 Occurrences starting 09/15/2023 until 09/15/2024 [facility] Work Phone: Comment on above: 1 Occurrences starti ng 09/15/2023 until 09/15/2024 CBC panel - Blood by Automated count COMPLETE BLOOD COUNT Lab Routine Pre-op exam Ordered: 09/15/2023 [facility] Comment on above: Ordered: 09/15/2023 DENTAL RESTORATIONS DENTAL FRANKLYN RATIONS Routine scheduled Caries [facility] Immunizations Immunization Date Immunization Notes Care Provider [facility] 03-07-2022 diphtheria, tetanus toxoids and pertussis vaccine Viry Ortiz Work Phone: [facility] 09-08-2021 influenza, injectabl e, quadrivalent, preservative free Viry Angel RD Work Phone: [facility] 09-08-2021 influenza virus vaccine, unspecified formulation Carline Greenwood Bruna DDS Work Phone: [facility] 12-15-2020 Pfizer SARS-COV-2 (COVID-19) vaccine, age 12+ yrs, mRNA, spike protein, LNP, preservative free, 30 mcg/0.3mL dose (CAE=883) Viry Angel RD Work Phone: [facility] 11-24-2020 Pfizer SARS-COV-2 (COVID-19) vaccine, age 12+ yrs, mRNA, spike protein, LNP, preservative free, 30 mcg/0.3mL dose (EZI=063) Viry Angel RD Work Phone: [facility] 08-27-2020 influenza, injectabl e, quadrivalent, preservative free Viry Angel RD Work Phone: [facility] 08-22-2018 influenza, injectabl e, quadrivalent, contains preservative Viry Angel RD Work Phone: [facility] Work Phone: 09-06-2017 influenza, injectabl e, quadrivalent, contains preservative Viry Angel RD Work Phone: [facility] 11-15-2016 tetanus toxoid, redu danika diphtheria toxoid, and acellular pertussis vaccine, adsorbed [facility] Comment on above: Series: 09-03-2015 influenza, injectabl e, quadrivalent, preservative free Viry Angel RD Work Phone: [facility] 09-30-2009 novel [id number], preservative-free, injectable Viry Angel RDH Work Phone: [facility] 09-04-2008 influenza virus vaccine, whole virus Viry Gutierrezrillo RD Work Phone: [facility] 08-29-2007 influenza, seasonal, injectable Viry Angel RD Work Phone: [facility] 03-29-2007 meningococcal polysaccharide (groups A, C, Y and W-135) diphtheria toxoid conjugate vaccine (MCV4P) Viry Angel Work Phone: [facility] 09-29-2006 tetanus toxoid, redu danika diphtheria toxoid, and acellular pertussis vaccine, adsorbed Viry Angel Work Phone: [facility] 09-12-2006 influenza, seasonal, injectable Viry Angel RD Work Phone: [facility] 06-25-2003 measles, mumps and rubella virus vaccine Viry Angel Work Phone: [facility] 09-25-1996 diphtheria, tetanus toxoids and pertussis vaccine Viry Angel Work Phone: [facility] 09-25-1996 poliovirus vaccine, inactivated Viry Angel Work Phone: [facility] 02-05-1993 diphtheria, tetanus toxoids and pertussis vaccine Viry Angel RD Work Phone: [facility] 11-23-1992 haemophilus influenz ae type b vaccine, conjugate unspecified formulation Viry Angel Work Phone: [facility] 11-23-1992 measles, mumps and rubella virus vaccine Viry Angel RD Work Phone: [facility] 10-02-1992 poliovirus vaccine, inactivated Viry Angel RD Work Phone: [facility] 02-03-1992 diphtheria, tetanus toxoids and pertussis vaccine Viry Angel RD Work Phone: [facility] 02-03-1992 haemophilus influenz ae type b vaccine, conjugate unspecified formulation Viry Angel RD Work Phone: [facility] 1991 diphtheria, tetanus toxoids and pertussis vaccine Viry Angel RD Work Phone: [facility] 1991 haemophilus influenz ae type b vaccine, conjugate unspecified formulation Viry Angel RD Work Phone: [facility] 1991 trivalent poliovirus vaccine, live, oral Viry Angel RD Work Phone: [facility] 1991 diphtheria, tetanus toxoids and pertussis vaccine Viry Angel RD Work Phone: [facility] 1991 haemophilus influenz ae type b vaccine, conjugate unspecified formulation Viry Angel Work Phone: [facility] 1991 trivalent poliovirus vaccine, live, oral Viry Angel Work Phone: [facility] Payers Date Payer Category Payer Unknown 2023 Unknown [id number] 2020 Medicaid MEDICAID [facility] [id number] 2020-Present [id number] 2016 Medicare [id number] 2012 Medicare MEDICARE MEDICAR E PART A & B [id number] 2012-Present [address] [place] [address] Medicare [id number] 2010 Medicaid [id number] 1991 Unknown [id number] 2.16.840.1.456845.3.579.2.176 1991 Unknown [id number] 2.16.840.1.397477.3.579.2.176 1991 Unknown [id number] 2.16.840.1.211465.3.579.2.903 1991 Unknown [id number] 2.16.840.1.248070.3.579.2.593 1991 Unknown [id number] 2.16.840.1.252952.3.579.2.593 1991 Unknown [id number] 2.16.840.1.471758.3.579.2.593 1991 Unknown [id number] 2.16.840.1.852147.3.579.2.593 1991 Unknown [id number] 2.16.840.1.646527.3.579.2.593 1991 Unknown [id number] 2.16.840.1.381953.3.579.2.593 1991 Unknown [id number] 2.16.840.1.295280.3.579.2.593 1991 Unknown [id number] 2.16.840.1.814433.3.579.2.356 1991 Unknown [id number] 2.16.840.1.740995.3.579.2.356 1991 Unknown [id number] 2.16.840.1.402727.3.579.2.356 1991 Unknown [id number] 2.16.840.1.624954.3.579.2.732 1991 Unknown [id number] 2.16.840.1.394171.3.579.2.732 1991 Unknown [id number] 2.16.840.1.265191.3.579.2.732 1991 Unknown [id number] 2.16.840.1.328385.3.579.2.732 1991 Unknown [id number] 2.16.840.1.349364.3.579.2.727 1991 Unknown [id number] 2.16.840.1.080054.3.579.2.1244 1991 Unknown [id number] 2.16.840.1.249391.3.579.2.1244 1959 Medicaid [id number] 1958 Medicare [id number] Social History Date Type Detail Facility Tobacco smoking status NHIS Unknown if ever smoked LH-Zgrdzugqrhovy-YOV [place] [address] Work Phone: Start: 1991 Sex Assigned At Not on file [facility] Exposure to SARS-CoV-2 (event) Not sure [facility] Start: 12-07-2017 Tobacco smoking status MOIS Never smoked tobacco [facility] Start: 12-07-2017 Tobacco use and exposure Smokeless tobacco non-user [facility] Never smoker Never smoker [facility]-Endocrinolog y-[facility] in [facility] Work Phone: Gender identity Not on file [facility] Tobacco smoking status MOIS Tobacco smoking consumption unknown [facility] Work Phone: Start: 11-05-2023 End: 11-15-2023 Exposure to SARS-CoV-2 (event) Yes [facility] NEGATED: Highlighted row - - OI-Qrftlxdgdepms-HWG [place] [address] Work Phone: Functional Status Date Assessment Result Facility NEGATED: Highlighted row Functional performance Functional status health issues are not documented Disease JT-Oqaechfweshwl-SJ C [place] [address] Work Phone: Mental Status Date Assessment Result Facility NEGATED: Highlighted row Cognitive function [Interpretation] Cognitive status health issues are not documented Disease RZ-Bkgnpqpmnizjo-JF C [place] [address] Work Phone: Clinical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
[2024-08-02] MEDS: TRIAMCINOLONE ACETONIDE 40 MG/ML VIAL IM (00:17)
[2024-08-02] MEDS: DIPHENHYDRAMINE HCL 50 MG/ML VIAL IM (00:18)
--- NOTE | 2024-08-02 00:44 | ED.GENADUL1 ---
HPI HPI - General Adult General Chief complaint: Allergic Reaction Stated complaint: SWOLLEN FACE, STUNG EARLIER TODAY Time Seen by Provider: 08/01/24 23:30 Source: caregiver Mode of arrival: walk-in History of Present Illness HPI narrative: 34-year-old male to the emergency department chief complaint bee sting to the face. Bee sting occurred several hours prior to arrival. Facility nurse noticed some facial swelling to the right side of his face. He was sent to the emergency department for evaluation. Tylenol prior to arrival. Patient is nonverbal. Related Data Previous Rx's ?Medication ?Instructions ?Recorded diphenhydramine HCl 25 mg capsule 25 mg PO Q8H PRN allergic reaction 08/02/24 (Benadryl) #30 caps Allergies Allergy/AdvReac Type Severity Reaction Status Date / Time No Known Drug Allergies Allergy Verified 08/01/24 22:57 Opioid HPI Opioid Management Most Recent Opioid Data: No Data to Display Review of Systems ROS Status of ROS 10 or more systems reviewed and unremarkable except as noted in history and below Exam Narrative Exam Narrative: VITALS: I have reviewed the triage vital signs. GENERAL: Well developed, well appearing adult in no acute distress. NEURO: Alert and oriented. Moves all extremities. Face is symmetric and expressive. EYES: PERRL. No scleral icterus or conjunctival injection. No discharge. HENT: Edema over the right maxilla extending into the right inferior orbital area. No lip swelling. No tongue swelling. No dysphonia. Hearing is grossly intact. Nares grossly patent and without discharge. Mucous membranes moist. NECK: No JVD. Patient moves neck without restriction. EXTREMITIES: Symmetric muscle bulk. No joint swelling. No clubbing, cyanosis, or deformity. SKIN: Warm and dry. Normal turgor. No rash or lesions appreciated. PSYCH: Mood, affect, and interaction is appropriate to the setting. Constitutional Vital Signs, click to edit/add: Last Vital Signs Temp 97.8 F 08/01/24 22:58 Pulse 58 L 08/01/24 22:58 Resp 20 08/01/24 22:58 BP 136/90 08/01/24 22:58 Pulse Ox 100 08/01/24 22:58 Course Vital Signs Vital signs: Vital Signs Temperature 97.8 F 08/01/24 22:58 Pulse Rate 58 L 08/01/24 22:58 Respiratory Rate 20 08/01/24 22:58 Blood Pressure 136/90 08/01/24 22:58 Pulse Oximetry 100 08/01/24 22:58 Temperature 97.8 F 08/01/24 22:58 Pulse Rate 58 L 08/01/24 22:58 Respiratory Rate 20 08/01/24 22:58 Blood Pressure 136/90 08/01/24 22:58 Pulse Oximetry 100 08/01/24 22:58 Medical Decision Making MDM Narrative Medical decision making narrative: 34-year-old male to the emergency department for facial swelling after bee sting. Vital stable, the patient is afebrile. No evidence of anaphylaxis. There is no oropharyngeal involvement. No airway involvement. Happened several hours ago, no indication for further observation. Symptomatic medications. Nonverbal. Does not take medications well. Kenalog and IM Benadryl were given. P.o. Benadryl as needed at facility. Return precautions were discussed. All questions were answered. The patient was discharged home. Medical Records Medical records reviewed: Yes I reviewed the patient's medical records Discharge Plan Discharge Chief Complaint: Allergic Reaction Clinical Impression: Allergic reaction, Accidental bee sting Patient Disposition: Home, Self-Care Time of Disposition Decision: 00:00 Condition: Good Mode of Transportation: Private Vehicle Prescriptions / Home Meds: New diphenhydramine HCl [Benadryl] 25 mg capsule 25 mg PO Q8H PRN (Reason: allergic reaction) Qty: 30 0RF Print Language: Japanese Instructions: Insect Bite or Sting (ED), General Allergic Reaction (ED) Additional Instructions: Call the office of your primary care doctor to arrange for follow-up within the above-stated timeframe. Your ED visit was focused on your acute issue and does not replace primary care. You should review your labs, imaging, and diagnoses from this ED visit with your primary care physician. There may be non-emergent/ incidental findings that need further evaluation. You should review your vital signs including blood pressure with your PCP. If you were prescribed medications you should discuss possible side-effects and drug interactions with your pharmacist. Call 911 or go to the nearest Emergency Department if you develop any new or worsening symptoms. Referrals: LUMA BARONE DO [Primary Care Provider] - 1 week Discharge Date/Time: 08/02/24 00:27
== END 2024-08-02 00:27 | disposition home or self-care (01) ==
PROVIDERS: Emergency Provider Student in an Organized Health Care Education/Training Program; PCP Family Medicine
DX: T63.441A Toxic effect of venom of bees, accidental (unintentional), initial encounter (principal)
CPT/HCPCS: 96372; 99284; J1200; J3301

== ENCOUNTER 2024-09-17 12:48 | Outpatient (OUT) | payer MEDICARE, MEDICAID, SELFPAY ==
--- NOTE | 2024-09-17 12:56 | US_ITS ---
The [address] [address] Patient Name: MARKEL LI MRN: [id number] date: 1990 Sex: M Assigned Patient Location: US Current Patient Location: US Accession/Order Number: [id number] Exam Date: 09/17/2024 13:00 Report Date: 09/17/2024 15:34 At the request of: LUMA BARONE Procedure: US thyroid EXAMINATION: US thyroid HISTORY: Thyroid Nodule COMPARISON: 01/04/23. TECHNIQUE: Sonographic images of the thyroid gland were obtained. FINDINGS: The right thyroid lobe is normal in size, contour and echotexture measuring 4.9 x 1.3 x 1.5 cm. No focal nodule The thyroid isthmus measures 4.5 mm, no focal nodule The left thyroid lobe is normal in size, contour and echotexture measuring 4.1 x 1.1 x 1.8 cm. No focal nodule US/US thyroid IMPRESSION: Normal examination. TI-RADS: TI-RADS 1: Normal thyroid gland. No focal lesion. Electronically authenticated by: YOKASTA ZAVALA Date: 09/17/2024 15:34
--- OUTSIDE RECORDS SUMMARY | 2024-09-17 13:08 | XMS_ITS | CCD ---
Author Organization [facility] Care Team Providers Care Vp Transportation Name Role Phone DABOUL, ISAM Admitting Unavailable [...] (3 sources) fluvoxaMINE; Translations: [Luvox] Drug Allergy [facility] Repository (15 sources) QUEtiapine; Translations: [SEROquel TABS] Drug Allergy 02-03-2017 Unknown [facility] [place] [address] Work Phone: (4 sources) risperiDONE; Translations: [risperiDONE TABS] Drug Allergy 02-06-2017 Unknown [facility] [employer] [address] Work Phone: (2 sources) Valproate; Translations: [Depakote] Drug Allergy [facility] [employer] [address] Work Phone: (15 sources) fluvoxaMINE; Translations: [FLUVOXAMINE] Drug Allergy 02-06-[address] [facility] (13 sources) Valproate; Translations: [VALPROIC ACID] Drug Allergy 02-03-2017 [facility] (13 sources) risperiDONE; Translations: [RISPERIDONE] Drug Allergy 02-06-2017 [facility] (2 sources) QUEtiapine; Translations: [QUETIAPINE] Drug Allergy 02-03-2017 [facility] Repository (2 sources) Valproate; Translations: [DIVALPROEX] Drug Allergy 11-15-2023 Unknown [facility] (1 source) QUEtiapine; Translations: [SEROquel] Drug Allergy [facility] Repository Medications Current Medications Medication Drug [...] 0 Active take 4 tablets by mo [facility] in the morning, then take 8 tablets [...] daily Refills: 0 Active polyethylene glycol 3350 04492 mg powder for oral solution (2 sources) [...] chemistry] Episodic Other aftercare (1 source) Other skilled nursing (current) drug therapy; Translations: [OTH CARE HOME CURRENT DRUG THERAPY] Onset: 3 Episodic Other [...] hiren Migration; 2013-07-05; Moved to [facility] Oct 05 2013 9:01PM; Other nutritional; [...] Facility Consent for Treatmenton Consent for Treatment [id number] .[id number] Normal [facility] XR Adult Swallowing Function w/ Videoon [...] mGy = 17.10 DAP = 395.03 Normal [facility] Physician Orderon 12-11-2023 Physician Order [id number]. 00TIFF Normal [facility] Anesthesia Postprocedure Clara luationon 10-03-2023 Pneumatic Tube Repairer Authentication Interface Message Text Anesthesia Postoperative Assessment: [...] EVENTS: No notable events documented. Normal [facility] Anesthesia Preprocedure Eval uationon 10-02-2023 Pneumatic Tube Repairer Authentication Interface Message Text ASA: 3 No [...] were discussed with the patient and/or legal career services representative. The risks, benefits and alternatives were reviewed. Questions regarding anesthesia were answered. Patient and/or legal career services representative knows such anesthetics and procedures may be performed by Resident physicians, Certified Anesthesiologist Assistants, or Certified Nurse Anesthetists under the supervision of a physician. The patient /or the patient's legal career services representative agree with the plan for anesthesia. [...] DENTAL RESTORATIONS; Surgeon: Grabiel Cummings DDS; Location: [facility]; Service: Dental * EXTRACTION, TOOTH 02/06/2017 Procedure: EXTRACTION, TOOTH; Surgeon: Noé Drew DDS; Location: PERIOPERATIVE SERVICES; Service: Dental * UNLISTED PROCEDURE, DENTOALVEOLAR STRUCTURES 04/29/10 * X-RAY EXAM OF TEETH. [id number] 04/29/10 Social History Socioeconomic History * Marital status: Single Tobacco Use * Smoking status: Never * Smokeless tobacco: Never Social History Narrative [facility]. Brother is guardian. Current Outpatient Medications on [...] carbamazepine (more content not included)... Normal [facility]2023 Pneumatic Tube Repairer Authentication Interface Message Text Patient taken to [...] surgical history indicates: X-RAY EXAM OF TEETH. [id number] (04/29/10) UNLISTED PROCEDURE, DENTOALVEOLAR STRUCTURES (04/29/10) DENTAL RESTORATIONS (02/06/2017) Procedure: DENTAL RESTORATIONS; Surgeon: Noé Drew DDS; Location: PERIOPERATIVE SERVICES; Service: Dental EXTRACTION, TOOTH (02/06/2017) Procedure: EXTRACTION, TOOTH; Surgeon: Noé Drew DDS; Location: PERIOPERATIVE SERVICES; Service: Dental DENTAL RESTORATIONS (02/15/2021) Procedure: DENTAL RESTORATIONS; Surgeon: Grabiel Cummings DDS; Location: [facility]; Service: Dental Allergies: Depakote [valproic acid], Luvox [fluvoxamine], Risperidone, and Seroquel [quetiapine] Basic Operating Room Facts: Surgeon(s): Tyrese Alexander DDS Anesthesiologist: Timothy Elizalde MD PRINT SHOP HELPER: Rainer Fatima APRN-PRINT SHOP HELPER Anesthesia Student: Joyce Rivers DENTAL RESTORATIONS (Bilateral) [...] was received. Rainer Fatima APRN-ARANZA Normal [facility] Blood Attestationon 10-02-20 Pneumatic Tube Repairer Authentication Interface Message Text Blood Attestation: ATTESTATION OF INFORMED CONSENT FOR BLOOD: The transfusion of blood and/or blood components were discussed with the patient and/or legal career services representative. The risks, benefits and alternatives were reviewed. Questions regarding blood transfusions were answered. The patient /or the patient's legal career services representative agree with the plan for transfusion of blood and/or blood components. Normal [facility] Brief Operative Noteon 10-02 Pneumatic Tube Repairer Authentication Interface Message Text Brief Operative Note PHE OR 3 Markel Li 33 year old male Surgical Contact Serial Number: [id number] Preoperative Diagnosis: Caries [K02.9] Autism [ F 84] Postoperative Diagnosis: * Caries [K02.9] Procedures: Full mouth X ray [13415] Comprehensive exam [74646] Prophylaxis [35276] Restorations [26915] Surgeon(s): Surgeon(s): Tyrese Alexander DDS Staff: [employer]s [employer] Parking [employer] Sweeper Operator Nurse: Nina Galan RN Respiratory Services Manager: Ca Raza DDS; Rosas Narayanan DDS Anesthesia: General Anesthesiologist: Timothy Elizalde MD PRINT SHOP HELPER: Rainer Fatima APRN-PRINT SHOP HELPER Anesthesia Student: Joyce Rivers Specimen(s): * No [...] Martini DDS 10/02/2023 2:29 PM Normal [facility] OP Noteon 10-02-2023 Pneumatic Tube Repairer Authentication Interface Message Text Surgical Case Number Data Unavailable Operating Room Data Unavailable Preoperative Diagnosis: Caries [K02.9] Autism [ F 84] Preoperative Diagnosis: Caries [K02.9] Autism [ F 84] Postoperative Diagnosis: Autism [ F 84] Procedures: Full mouth X ray [19733] Comprehensive exam [75045] Prophylaxis [53121] Restorations [30775] Postoperative Diagnosis(es): Same @ENCORD@ Surgeon: Dr Tyra DDS Blow Machine Tender Starch Spraying Surgeon: WILLIAMS Corcoran DDS Anesthesia: General- Nasal [...] Martini DDS 10/02/2023 2:34 PM Normal [facility] Progress Noteson 10-02-2023 Pneumatic Tube Repairer Authentication Interface Message Text ----- Monday, October 02, 2023 at 2:27:57 PM ----- ----- Provider: [id number] Isabel Mary DDS -- Clinic: [facility] ----- [place] notes, RM pt is read [...] Note Type: OP Note Status: Cosign Needed Cooky Machine Operator: Rosas Narayanan DDS (Resident) Cosign Required: Yes Expand All Collapse All Surgical Case Number Data Unavailable Operating Room Data Unavailable Preoperative Diagnosis: Caries [K02.9] Autism [ F 84] Preoperative Diagnosis: Caries [K02.9] Autism [ F 84] Postoperative Diagnosis: Autism [ F 84] Procedures: Full mouth X ray [02315] Comprehensive exam [66307] Prophylaxis [13772] Restorations [37139] Postoperative Diagnosis(es): Same @ENCORD@ Surgeon: Dr Tyra DDS Blow Machine Tender Starch Spraying Surgeon: WILLIAMS Corcoran DDS Anesthesia: General- Nasal [...] Martini DDS 10/02/2023 2:34 PM Normal [facility] Telephone Encounteron 2022 Pneumatic Tube Repairer Authentication Interface Message Text DD adult dental restorations on 10/02 under [place] at [place]. PSE completed - consents obtained. PSE RN spoke to Miriam from [facility], confirmed NPO, [place] address, and 1100 arrival time Normal [facility] Telephone Encounteron 2022 Pneumatic Tube Repairer Authentication Interface Message Text Informed Consent for dental surgery AND Anesthesia consent obtained and scanned into [employer]. Scheduled for surgery 10/02/2023. Normal [facility] BASIC METABOLIC PANELon 11-0 Anion gap [Moles/Vol] 13 mmol/L Normal 10-20 [facility] Comment on above: Performed By: #### C H8 ####S PATHOLOGY JUDONRGHLO8069 [place], [place], Calcium [Mass/Vol] 9.6 mg/dL Normal 8.4-10.4 The [facility] Comment on above: Performed By: #### C H8 ####[facility] PATHOLOGY [id number] [place], [place], Chloride [Moles/Vol] 105 mmol/L Normal 97-111 [facility] Comment on above: Performed By: #### C H8 ####[facility] PATHOLOGY ORSLLWBFDP5471 [place], CO2 [Moles/Vol] 26 mmol/L Normal 21-30 The [facility] Comment on above: Performed By: #### C H8 ####S PATHOLOGY [id number] [place], Creatinine [Mass/Vol] 1.58 mg/dL High 0.80-1.30 The [facility] Comment on above: Performed By: #### C H8 ####[facility] PATHOLOGY [id number] [place], ESTIMATED GFR (CKD-EPI) 59 mL/min/1.73sqm Low >=60 The [facility] Comment on above: Result Comment: [...] Inclusion of Race in Diagnosing Kidney Disease. [place] Journal of Kidney Diseases 2021;79(2):268-88.e1. 2. N Engl J Med 1 Vol. 385 Issue 19 Pages 1938-1101 Performed By: #### C H8 ####[facility] PATHOLOGY [id number] [place], Glucose [Mass/Vol] 69 mg/dL Normal 68-110 The [facility] Comment on above: Performed By: #### C H8 ####[facility] PATHOLOGY [id number] [place], Potassium [Moles/Vol] 4.1 mmol/L Normal 3.3-5.3 The [facility] Comment on above: Performed By: #### C H8 ####S PATHOLOGY [id number] [place], Sodium [Moles/Vol] 140 mmol/L Normal 135-148 The [facility] Comment on above: Performed By: #### C H8 ####S PATHOLOGY [id number] [place], Urea nitrogen [Mass/Vol] 18 mg/dL Normal 8-22 [facility] Comment on above: Performed By: #### C H8 ####S PATHOLOGY IKHPPOSQMV9642 [place], [address] Basic metabolic 2000 panelon 09-15-2023 Anion gap [...] Inclusion of Race in Diagnosing Kidney Disease. [place] Journal of Kidney Diseases 202;79(2):268-88.e1. 2. N Engl J Med 2020 Vol. 385 Issue 19 Pages 2450-9912 Glucose [Mass/Vol] 69 mg/dL 68 - 110 [...] 13.8 g/dL Low 13.9 - 16.3 g/dL [facility] Interpretation and review of laboratory results Abnormal [facility] MCH (RBC) [Entitic mass] 28.7 pg 26.0 - 34.0 pg [facility] MCHC (RBC) [Mass/Vol] 32.9 g/dL 32.0 - 35.9 g/dL [facility] MCV (RBC) [Entitic vol] 87 fL 80 - 100 fL [facility] Platelet mean volume (Bld) [Entitic vol] 8.7 fL 7.5 - 11.2 fL [facility] Platelets (Bld) [#/Vol] 213 10*3/uL 150 - 400 K/uL [facility] RBC (Bld) [#/Vol] 4.80 10*6/uL [facility] WBC (Bld) [#/Vol] 6.3 10*3/uL 4.5 - 11.5 K/uL [facility] COMPLETE BLOOD COUNTon 09-15 Erythrocyte distribution width (RBC) [Ratio] 13.3 % Normal 11.5-14.5 The [facility] Comment on above: Performed By: #### C BC ####S PATHOLOGY [id number] [place], [place], Hematocrit (Bld) [Volume fraction] 41.8 % Normal 41.0-53.0 The [facility] Comment on above: Performed By: #### C BC ####S PATHOLOGY [id number] [place], Hemoglobin (Bld) [Mass/Vol] 13.8 g/dL Low 13.9-16.3 The [facility] Comment on above: Performed By: #### C BC ####S PATHOLOGY MNESIWRDZU5243 [place], MCH (RBC) [Entitic mass] 28.7 pg Normal 26.0-34.0 The [facility] Comment on above: Performed By: #### C BC ####S PATHOLOGY VUZMICGMXW6853 [place], MCHC (RBC) [Mass/Vol] 32.9 g/dL Normal 32.0-35.9 The [facility] Comment on above: Performed By: #### C BC ####S PATHOLOGY TNPIUYFRMB4707 [place], MCV (RBC) [Entitic vol] 87 fL Normal 80-100 The [facility] Comment on above: Performed By: #### C BC ####[facility] PATHOLOGY DBYBPOSJIL9421 [place], Platelet mean volume (Bld) [Entitic vol] 8.7 fL Normal 7.5-11.2 The [facility] Comment on above: Performed By: #### C BC ####[facility] PATHOLOGY [id number] [place], Platelets (Bld) [#/Vol] 213 10*3/uL Normal 150-400 The [facility] Comment on above: Performed By: #### C BC ####[facility] PATHOLOGY [id number] [place], RBC (Bld) [#/Vol] 4.80 10*6/uL Normal 4.50-5.90 The [facility] Comment on above: Performed By: #### C BC ####[facility] PATHOLOGY [id number] [place], WBC (Bld) [#/Vol] 6.3 10*3/uL Normal 4.5-11.5 The [facility] Comment on above: Performed By: #### C BC ####[facility] PATHOLOGY [id number] [place], [place], PSE Chartingon 09-15-2023 Pneumatic Tube Repairer Authentication Interface Message Text Dental Consult The [...] Treatment Dental Treatment in the OR Follow-up [facility] Family Dentistry if needed Note: Legal guardian: Yogesh Li (BROTHER): [phone]. The patient lives in a Facility. A caregiver brushes his teeth twice a day. Ramu Jernigan DDS Normal [facility] Patient Instructionson 09-15 Pneumatic Tube Repairer Authentication Interface Message Text RECOMMENDATIONS: Patient was instructed on the following: Nothing by mouth after midnight before surgery except following meds with sip of water on AM of surgery: as per anesthesia Stop aspirin 7 days before surgery Stop NSAID 5 days before surgery Stop Vitamin E 10 days prior to surgery Stop alternative/herbal medication 10 days before surgery Normal [facility] Progress Noteson 09-15-2023 Pneumatic Tube Repairer Authentication Interface Message Text Blood pressure 112/72, [...] [Quetiapine] Latex Allergy: No Surgical Procedure: dental methodist Surgeon: unknown Date of Surgery: 10/02/2023 HISTORY: [...] DENTAL RESTORATIONS; Surgeon: Grabiel Cummings DDS; Location: [facility] [place]; Service: Dental EXTRACTION, TOOTH 02/06/2017 Procedure: EXTRACTION, TOOTH; Surgeon: Noé Drew DDS; Location: PERIOPERATIVE SERVICES; Service: Dental UNLISTED PROCEDURE, DENTOALVEOLAR STRUCTURES 04/29/10 X-RAY EXAM OF TEETH. [id number] 04/29/10 Pertinent Social History Reviewed Social History [...] fever, chills, night sweats, and weight loss TACTICAL INTELLIGENCE OFFICER: H/o seizures Respiratory: No h/o COPD, asthma dyspnea or recent URI Cardiovascular: No h/o chest pain/MS/CHF/valvular disease/HTN GI: Constipation : H/o urinary retention [...] N (more content not included)... Normal [facility] Pneumatic Tube Repairer Authentication Interface Message Text Patient was identified by name and date of . Lashon Akin Parsons Normal [facility] Progress Noteson 09-06-2023 Pneumatic Tube Repairer Authentication Interface Message Text Parent/guardian(Mag gaines @ [place]) was contacted for PSE AND OR scheduled -- confirmed information with mom, also informed mom importance of receiving PSE call -- if not received surgery will be canceled ----- Wednesday, September 06, 2023 at 11:27:36 AM ----- ----- Provider: Bridget Lombardi Specialist -- Clinic: [place] ----- Normal [facility] Follow Up (Endocrinology)on 03-14-2023 Follow Up (Endocrinology) Diagnoses/Problems Assessed Hypothyroidism (244.9) (E03.9) Low vitamin D level (790.6) (R79.89) Hypocalcemia (275.41) (E83.51) Multinodular goiter (241.1) (E04.2) Orders Hypocalcemia, Hypothyroidism, Low vitamin D level Comprehensive Metabolic Panel; Status:Active; Requested for:14Mar2023; Perform:Lab Services - Lab To Draw (Blood Test); Due:44Zmy3660;Ordered ; For:Hypocalcemia, Hypothyroidism, Low vitamin D level; Ordered By:Erin Ogden; Hemoglobin A1C; Status:Active; Requested for:14Mar2023; Perform:Lab Services - Lab To Draw (Blood Test); Due:12Lsm9906;Ordered ; For:Hypocalcemia, Hypothyroidism, Low vitamin D level; Ordered By:Erin Ogden; Osmolality, Serum; Status:Active; Requested for:14Mar2023; Perform:Lab Services - Lab To Draw (Blood Test); Due:44Kec3636;Ordered ; For:Hypocalcemia, Hypothyroidism, Low vitamin D level; Ordered By:Erin Ogden; Osmolality, Urine Spot; Status:Active; Requested for:14Mar2023; Perform:Lab Services - Lab To Draw (Non-Blood Test); Due:57Txp8141;Ordered ; For:Hypocalcemia, Hypothyroidism, Low vitamin D level; Ordered By:Erin Ogden; TSH WITH REFLEX TO FREE T4 IF ABNORMAL; Status:Active; Requested for:14Mar2023; Perform:Lab Services - Lab To Draw (Blood Test); Due:64Llg9203;Ordered ; For:Hypocalcemia, Hypothyroidism, Low vitamin D level; Ordered By:Erin Ogden; Vitamin D 25-Hydroxy; Status:Active; Requested for:14Mar2023; Perform:Lab Services - Lab To Draw (Blood Test); Due:06Rym7725;Ordered ; For:Hypocalcemia, Hypothyroidism, Low vitamin D level; [...] disorder,severe psychosis,GERD, HTN , hypercalcemia likely 2/2 [facility] with exacerbation by lithium intake (that has [...] visit regarding his thyroid. History of Present Ifabzbo89 yo male with severe mental retardation, autism, bipolar disorder,severe psychosis,GERD, HTN , hypercalcemia [facility] 2/2 [facility] with exacerbation by lithium intake (that has [...] then eats a day after. not on [place] 300 mg , did not changed since last visit as per sheet . guardian is brother Yogesh nb [phone] seeing GI , EGD was fine. no acute issues. is losing weight again , had a lip biopsy and infected ulcer is healed, weight loss has stopped, on Lt4 50 mcgq day and we need recent albs, slightly more agitated , had a fall with bruise on his face , [place] physician is following. no changes in neuro [...] 01-20-2023 Osmolality [Osmolality] 291 mosm/kg Normal 275-295 [facility] Comment on above: Performed By: #### C MP, T4, TSH #### [facility] [address] [place], [place] [address] Dr. Juan Argueta CBC AUTO DIFFon 01-18-2023 BASO # 0.0 103/ul Normal 0.0-0.1 [facility] Comment on above: Performed By: #### C MP, T4, TSH #### [facility] [address] [place] [address] Dr. Juan Argueta Basophils/100 WBC (Bld) 0.6 % Normal 0.2-2.0 [facility] Comment on above: Performed By: #### C MP, T4, TSH #### [facility] [address] [place] [address] Dr. Juan Argueta EO # 0.1 103/ul Normal 0.0-0.[address] [facility] Comment on above: Performed By: #### C MP, T4, TSH #### [facility] [address] [place] [address] Dr. Juan Argueta Eosinophils/100 WBC (Bld) 2.8 % Normal 0.9-7.0 [facility] Comment on above: Performed By: #### C MP, T4, TSH #### [facility] [address] [place] [address] Dr. Juan Argueta Erythrocyte distribution width (RBC) [Ratio] 12.9 % Normal 11.0-15.0 [facility] Comment on above: Performed By: #### C MP, T4, TSH #### [facility] [address] [place] [address] Dr. Juan Argueta Hematocrit (Bld) [Volume fraction] 45.4 % Normal 42.0-54.0 [facility] Comment on above: Performed By: #### C MP, T4, TSH #### [facility] [address] [place] [address] Dr. Juan Argueta Hemoglobin (Bld) [Mass/Vol] 15.4 g/dL Normal 14.0-18.0 [facility] Comment on above: Performed By: #### C MP, T4, TSH #### [facility] [address] [place] [address] Dr. Juan Argueta IG # 0.01 10e3/ul Normal 0.00-0.03 [facility] Comment on above: Performed By: #### C MP, T4, TSH #### [facility] [address] [place] [address] Dr. Juan Argueta IG % 0.2 % Normal 0.0-0.[address] [facility] Comment on above: Performed By: #### C MP, T4, TSH #### [facility] [address] [place] [address] Dr. Juan Argueta LYMPH # 1.3 103/ul Normal 1.2-3.[address] [facility] Comment on above: Performed By: #### C MP, T4, TSH #### [facility] [address] [place] [address] Dr. Juan Argueta Lymphocytes/100 WBC (Bld) 25.1 % Normal 20.5-60.[address] [facility] Comment on above: Performed By: #### C MP, T4, TSH #### [facility] [address] [place] [address] Dr. Juan Argueta MANUAL DIFF REQ NO Normal The [facility] Comment on above: Performed By: #### C MP, T4, TSH #### [facility] [address] [place] [address] Dr. Juan Argueta MCH (RBC) [Entitic mass] 28.3 pg Normal 25.9-34.[address] [facility] Comment on above: Performed By: #### C MP, T4, TSH #### [facility] [address] [place] [address] Dr. Juan Argueta MCHC (RBC) [Mass/Vol] 33.9 g/dL Normal 29.9-35.2 [facility] Comment on above: Performed By: #### C MP, T4, TSH #### [facility] [address] [place] [address] Dr. Juan Argueta MCV (RBC) [Entitic vol] 83.3 fL Normal 80.0-94.[address] [facility] Comment on above: Performed By: #### C MP, T4, TSH #### [facility] [address] [place] [address] Dr. Juan Argueta MONO # 0.3 103/ul Normal 0.3-0.[address] [facility] Comment on above: Performed By: #### C MP, T4, TSH #### [facility] [address] [place] [address] Dr. Juan Argueta Monocytes/100 WBC (Bld) 5.9 % Normal 1.7-12.0 [facility] Comment on above: Performed By: #### C MP, T4, TSH #### [facility] [address] [place] [address] Dr. Juan Argueta NEUT # 3.3 103/ul Normal 1.4-6.5 [facility] Comment on above: Performed By: #### C MP, T4, TSH #### [facility] [address] [place] [address] Dr. Juan Argueta Neutrophils/100 WBC (Bld) 65.4 % Normal 43.0-75.0 [facility] Comment on above: Performed By: #### C MP, T4, TSH #### [facility] [address] [place] [address] Dr. Juan Argueta Platelet mean volume (Bld) [Entitic vol] 9.5 fL Normal 9.5-13.5 [facility] Comment on above: Performed By: #### C MP, T4, TSH #### [facility] [address] [place] [address] Dr. Juan Argueta PLT 244 103/ul Normal 150-450 [facility] Comment on above: Performed By: #### C MP, T4, TSH #### [facility] [address] [place] [address] Dr. Juan Argueta RBC 5.45 106/ul Normal 4.70-6.10 [facility] Comment on above: Performed By: #### C MP, T4, TSH #### [facility] [address] [place] [address] Dr. Juan Argueta WBC 5.1 103/ul Normal 4.0-11.0 [facility] Comment on above: Performed By: #### C MP, T4, TSH #### [facility] [address] [place] [address] Dr. Juan Argueta GLYCOHEMOGLOBIN A1Con 2022 ADA RECOMMENDATION SEE BELOW Normal [facility] Comment on above: Result Comment: ADA RECOMMENDED LIMIT 4.0 - 6.0 ADA THERAPEUTIC TARGET < 7.0 ACTION SUGGESTED > 7.0 Performed By: #### C MP, T4, TSH #### [facility] [address] [place] [address] Dr. Juan Argueta Glucose [Mass/Vol] 100 mg/dL Normal [facility] Comment on above: Performed By: #### C MP, T4, TSH #### [facility] [address] [place] [address] Dr. Juan Argueta HbA1c (Bld) [Mass fraction] 5.1 % Normal 4.5-6.2 [facility] Comment on above: Performed By: #### C MP, T4, TSH #### [facility] [address] [place] [address] Dr. Juan Argueta PROF 14(COMP METB)on 023 Albumin [Mass/Vol] 4.2 g/dL Normal 3.4-5.0 [facility] Comment on above: Performed By: #### C MP, T4, TSH #### [facility] [address] [place] [address] Dr. Juan Argueta Albumin/Globulin [Mass ratio] 1.0 {ratio} Normal [facility] Comment on above: Performed By: #### C MP, T4, TSH #### [facility] [address] [place] [address] Dr. Juan Argueta ALP [Catalytic activity/Vol] 152 U/L Critically high 46-116 [facility] Comment on above: Performed By: #### C MP, T4, TSH #### [facility] [address] [place] [address] Dr. Juan Argueta ALT [Catalytic activity/Vol] 34 U/L Normal 16-[address] [facility] Comment on above: Performed By: #### C MP, T4, TSH #### [facility] [address] [place] [address] Dr. Juan Argeuta Anion gap [Moles/Vol] 12.0 mmol/L Normal [facility] Comment on above: Performed By: #### C MP, T4, TSH #### [facility] [address] [address] [address] Juan Argueta AST [Catalytic activity/Vol] 31 U/L Normal 15-37 [facility] Comment on above: Performed By: #### C MP, T4, TSH #### [facility] [address] [place] [address] Dr. Juan Argueta Bilirubin [Mass/Vol] 0.2 mg/dL Normal 0.2-1.0 [facility] Comment on above: Performed By: #### C MP, T4, TSH #### [facility] [address] [place] [address] Dr. Juan Argueta Calcium [Mass/Vol] 9.4 mg/dL Normal 8.5-10.1 [facility] Comment on above: Performed By: #### C MP, T4, TSH #### [facility] [address] [place] [address] Dr. Juan Argueta Chloride [Moles/Vol] 104 mmol/L Normal 98-[address] [facility] Comment on above: Performed By: #### C MP, T4, TSH #### [facility] [address] [place] [address] Dr. Juan Argueta CO2 [Moles/Vol] 26.5 mmol/L Normal 21.0-32.0 [facility] Comment on above: Performed By: #### C MP, T4, TSH #### [facility] [address] [place] [address] Dr. Juan Argueta Creatinine [Mass/Vol] 1.60 mg/dL Critically high 0.70-1.30 [facility] Comment on above: Performed By: #### C MP, T4, TSH #### [facility] [address] [place] [address] Dr. Juan Argueta EGFR-AF EQUATORIAL GUINEAN >60 Normal >=60 [facility] Comment on above: Performed By: #### C MP, T4, TSH #### [facility] [address] [place] [address] Dr. Juan Argueta EGFR-NON AF EQUATORIAL GUINEAN 51 mL/min/1.73m2 Critically low >=[address] [facility] Comment on above: Performed By: #### C MP, T4, TSH #### [facility] [address] [address] [address] Juan Argueta Globulin (S) [Mass/Vol] 4.1 g/dL Normal [facility] Comment on above: Performed By: #### C MP, T4, TSH #### [facility] [address] [address] [address] Juan Argueta Glucose [Mass/Vol] 95 mg/dL Normal 74-106 [facility] Comment on above: Performed By: #### C MP, T4, TSH #### [facility] [address] [place] [address] Dr. Juan Argueta Potassium [Moles/Vol] 4.5 mmol/L Normal 3.5-5.1 [facility] Comment on above: Performed By: #### C MP, T4, TSH #### [facility] [address] [place] [address] Dr. Juan Argueta Protein [Mass/Vol] 8.3 g/dL Critically high 6.4-8.2 [facility] Comment on above: Performed By: #### C MP, T4, TSH #### [facility] [address] [place] [address] Dr. Juan Argueta Sodium [Moles/Vol] 138 mmol/L Normal 136-145 [facility] Comment on above: Performed By: #### C MP, T4, TSH #### [facility] [address] [place] [address] Dr. Juan Argueta Urea nitrogen [Mass/Vol] 22.0 mg/dL Critically high 7.0-18.0 [facility] Comment on above: Performed By: #### C MP, T4, TSH #### [facility] [address] [place] [address] Dr. Juan Argueta Urea nitrogen/Creatinine [Mass ratio] 13.8 mg/mg [facility] Comment on above: Performed By: #### C MP, T4, TSH #### [facility] [address] [place] [address] Dr. Juan Argueta T4on 01-18-2023 T4 [Mass/Vol] 3.20 ug/dL Critically low 4.50-12.10 [facility] Comment on above: Performed By: #### C MP, T4, TSH #### [facility] [address] [address] [address] Juan Argueta TSHon 01-18-2023 TSH 2.037 uIU/mL Normal 0.358-3.740 [facility] Comment on above: Performed By: #### C MP, T4, TSH #### [facility] [address] [address] [address] Juan Argueta US THYROIDon 01-04-2023 US [...] by: LUIS FERMIN Date: 2023-01-04 15:52 Normal [facility] OSMOLALITYon 10-06-2022 Osmolality [Osmolality] 307 mosm/kg Critically high 275-295 [facility] Comment on above: Performed By: #### C MP, T4, TSH #### [facility] [address] [address] [address] Juan Argueta T3, TOTAL (TRIIODOTHYRONINE) on 10-05-2022 T3, TOTAL 52 ng/dL Critically low 71-180 [facility] Comment on above: Performed By: #### C MP, T4, TSH #### [facility] [address] [address] [address] Juan Argueta GLYCOHEMOGLOBIN A1Con 2021 ADA RECOMMENDATION SEE BELOW Normal [facility] Comment on above: Result Comment: ADA RECOMMENDED LIMIT 4.0 - 6.0 ADA THERAPEUTIC TARGET < 7.0 ACTION SUGGESTED > 7.0 Performed By: #### C MP, T4, TSH #### [facility] [address] [address] [address] Juan Argueta Glucose [Mass/Vol] 105 mg/dL Normal [facility] Comment on above: Performed By: #### C MP, T4, TSH #### [facility] [address] [place] [address] Dr. Juan Argueta HbA1c (Bld) [Mass fraction] 5.3 % Normal 4.5-6.2 [facility] Comment on above: Performed By: #### C MP, T4, TSH #### [facility] [address] [place] [address] Dr. Juan Argueta PROF 14(COMP METB)on 022 Albumin [Mass/Vol] 4.2 g/dL Normal 3.4-5.0 [facility] Comment on above: Performed By: #### T SH, CMP #### [facility] [address] [place] [address] Dr. Juan Argueta Albumin/Globulin [Mass ratio] 1.1 {ratio} Normal [facility] Comment on above: Performed By: #### T SH, CMP #### [facility] [address] [place] [address] Dr. Juan Argueta ALP [Catalytic activity/Vol] 122 U/L Critically high 46-116 [facility] Comment on above: Performed By: #### T SH, CMP #### [facility] [address] [place] [address] Dr. Juan Argueta ALT [Catalytic activity/Vol] 53 U/L Normal 16-[address] [facility] Comment on above: Performed By: #### T SH, CMP #### [facility] [address] [place] [address] Dr. Juan Argueta Anion gap [Moles/Vol] 12.4 mmol/L Normal [facility] Comment on above: Performed By: #### T SH, CMP #### [facility] [address] [place] [address] Dr. Juan Argueta AST [Catalytic activity/Vol] 22 U/L Normal 15-[address] [facility] Comment on above: Performed By: #### T SH, CMP #### [facility] [address] [place] [address] Dr. Juan Argueta Bilirubin [Mass/Vol] 0.2 mg/dL Normal 0.2-1.0 [facility] Comment on above: Performed By: #### T SH, CMP #### [facility] [address] [address] [address] Juan Argueta Calcium [Mass/Vol] 9.6 mg/dL Normal 8.5-10.1 [facility] Comment on above: Performed By: #### T SH, CMP #### [facility] [address] [address] [address] Juan Argueta Chloride [Moles/Vol] 108 mmol/L Critically high 98-107 [facility] Comment on above: Performed By: #### T SH, CMP #### [facility] [address] [place] [address] Dr. Juan Argueta CO2 [Moles/Vol] 28.8 mmol/L Normal 21.0-32.0 [facility] Comment on above: Performed By: #### T SH, CMP #### [facility] [address] [address] [address] Juan Argueta Creatinine [Mass/Vol] 1.77 mg/dL Critically high 0.70-1.30 [facility] Comment on above: Performed By: #### T SH, CMP #### [facility] [address] [place] [address] Dr. Juan Argueta EGFR-AF EQUATORIAL GUINEAN 55 mL/min/1.73m2 Critically low >=[address] [facility] Comment on above: Performed By: #### T SH, CMP #### [facility] [address] [address] [address] Juan Argueta EGFR-NON AF EQUATORIAL GUINEAN 45 mL/min/1.73m2 Critically low >=[address] [facility] Comment on above: Performed By: #### T SH, CMP #### [facility] [address] [address] [address] Juan Argueta Globulin (S) [Mass/Vol] 3.7 g/dL Normal [facility] Comment on above: Performed By: #### T SH, CMP #### [facility] [address] [address] [address] Juan Argueta Glucose [Mass/Vol] 94 mg/dL Normal 74-106 [facility] Comment on above: Performed By: #### T SH, CMP #### [facility] [address] [address] [address] Juan Argueta Potassium [Moles/Vol] 4.2 mmol/L Normal 3.5-5.1 [facility] Comment on above: Performed By: #### T SH, CMP #### [facility] [address] [place] [address] Dr. Juan Argueta Protein [Mass/Vol] 7.9 g/dL Normal 6.4-8.2 [facility] Comment on above: Performed By: #### T SH, CMP #### [facility] [address] [place] [address] Dr. Juan Argueta Sodium [Moles/Vol] 145 mmol/L Normal 136-145 [facility] Comment on above: Performed By: #### T SH, CMP #### [facility] [address] [place] [address] Dr. Juan Argueta Urea nitrogen [Mass/Vol] 28.0 mg/dL Critically high 7.0-18.0 [facility] Comment on above: Performed By: #### T SH, CMP #### [facility] [address] [place] [address] Dr. Juan Argueta Urea nitrogen/Creatinine [Mass ratio] 15.8 mg/mg Normal [facility] Comment on above: Performed By: #### T SH, CMP #### [facility] [address] [place] [address] Dr. Juan Argueta TSHon 10-04-2022 TSH 1.456 uIU/mL Normal 0.358-3.740 [facility] Comment on above: Performed By: #### T SH, CMP #### [facility] [address] [place] [address] Dr. Juan Argueta VITAMIN D 25 OHon 10-04-2022 VIT D 25-OH 51.1 ng/mL Normal [facility] Comment on above: Performed By: #### C MP, T4, TSH #### [facility] [address] [place], [place] [address] Dr. Juan Argueta VIT D RANGES SEE BELOW [facility] Comment on above: Result Comment: <20 ng/mL Vit D deficient 20 - <30 ng/mL Vit D insufficient 30 - 100 ng/mL Vit D sufficient >100 ng/mL Potential Toxicity Performed By: #### C MP, T4, TSH #### [facility] [address] [place], [place] [address] Dr. Juan Argueta Follow Up (Endocrinology)on 09-30-2022 Follow Up (Endocrinology) Diagnoses/Problems Assessed Low vitamin D level (790.6) (R79.89) Hypothyroidism (244.9) (E03.9) Hypocalcemia (275.41) (E83.51) Multinodular goiter (241.1) (E04.2) Orders Hypocalcemia, Hypothyroidism, Low vitamin D level, Multinodular goiter Comprehensive Metabolic Panel; Status:Active; Requested for:30Sep2022; Perform:Lab Services - Lab To Draw (Blood Test); Due:[id number];Ordered ; For:Hypocalcemia, Hypothyroidism, Low vitamin D level, Multinodular goiter; Ordered By:Erin Ogden; Hemoglobin A1C; Status:Active; Requested for:30Sep2022; Perform:Lab Services - Lab To Draw (Blood Test); Due:[id number];Ordered ; For:Hypocalcemia, Hypothyroidism, Low vitamin D level, Multinodular goiter; Ordered By:Erin Ogden; Osmolality, Serum; Status:Active; Requested for:30Sep2022; Perform:Lab Services - Lab To Draw (Blood Test); Due:[id number];Ordered ; For:Hypocalcemia, Hypothyroidism, Low vitamin D level, Multinodular goiter; Ordered By:Erin Ogden; Osmolality, Urine Spot; Status:Active; Requested for:30Sep2022; Perform:Lab Services - Lab To Draw (Non-Blood Test); Due:[id number];Ordered ; For:Hypocalcemia, Hypothyroidism, Low vitamin D level, Multinodular goiter; Ordered By:Erin Ogden; TSH WITH REFLEX TO FREE T4 IF ABNORMAL; Status:Active; Requested for:30Sep2022; Perform:Lab Services - Lab To Draw (Blood Test); Due:[id number];Ordered ; For:Hypocalcemia, Hypothyroidism, Low vitamin D level, Multinodular goiter; Ordered By:Erin Ogden; Ultrasound Thyroid; Status:Hold For - Scheduling; Requested for:30Sep2022; Perform: Radiology Services Imaging; Due:[id number];Ordered ; For:Hypocalcemia, Hypothyroidism, Low vitamin D level, Multinodular goiter; Ordered By:Erin Ogden; Radiologist to Determine Optimal Study : Y What are the patient's signs and symptoms? : f/u Vitamin D 25-Hydroxy; Status:Active; Requested for:30Sep2022; Perform:Lab Services - Lab To Draw (Blood Test); Due:[id number];Ordered ; For:Hypocalcemia, Hypothyroidism, Low vitamin D level, [...] low vitamin d levels. History of Present [id number] yo male with severe mental retardation, autism, bipolar disorder,severe psychosis,GERD, HTN , hypercalcemia [facility] 2/2 [facility] with exacerbation by lithium intake (that has [...] then eats a day after. not on [place] 300 mg , did not changed since last visit as per sheet . guardian is brother Yogesh nb [phone] seeing GI , EGD was fine. no acute issues. is losing weight again , had a lip biopsy and infected ulcer is healed, weight loss has stopped, on Lt4 50 mcgq day and we need recent albs, slightly more agitated , had a fall with bruise on his face , [place] physician is following. no changes in neuro [...] 09-20-2022 BASO # 0.1 103/ul Normal 0.0-0.1 [facility] Comment on above: Performed By: #### C MP, T4, TSH #### [facility] [address] [place], [place] [address] Dr. Juan Argueta Basophils/100 WBC (Bld) 1.2 % Normal 0.2-2.0 [facility] Comment on above: Performed By: #### C MP, T4, TSH #### [facility] [address] [place] [address] Dr. Juan Argueta EO # 0.2 103/ul Normal 0.0-0.7 [facility] Comment on above: Performed By: #### C MP, T4, TSH #### [facility] [address] [place] [address] Dr. Juan Argueta Eosinophils/100 WBC (Bld) 5.0 % Normal 0.9-7.0 [facility] Comment on above: Performed By: #### C MP, T4, TSH #### [facility] [address] [place] [address] Dr. Juan Argueta Erythrocyte distribution width (RBC) [Ratio] 12.8 % Normal 11.0-15.0 [facility] Comment on above: Performed By: #### C MP, T4, TSH #### [facility] [address] [place] [address] Dr. Juan Argueta Hematocrit (Bld) [Volume fraction] 42.0 % Normal 42.0-54.0 [facility] Comment on above: Performed By: #### C MP, T4, TSH #### [facility] [address] [place] [address] Dr. Juan Argueta Hemoglobin (Bld) [Mass/Vol] 14.0 g/dL Normal 14.0-18.0 [facility] Comment on above: Performed By: #### C MP, T4, TSH #### [facility] [address] [place] [address] Dr. Juan Argueta IG # 0.01 10e3/ul Normal 0.00-0.03 [facility] Comment on above: Performed By: #### C MP, T4, TSH #### [facility] [address] [place] [address] Dr. Juan Argueta IG % 0.2 % Normal 0.0-0.5 [facility] Comment on above: Performed By: #### C MP, T4, TSH #### [facility] [address] [place] [address] Dr. Juan Argueta LYMPH # 1.5 103/ul Normal 1.2-3.8 [facility] Comment on above: Performed By: #### C MP, T4, TSH #### [facility] [address] [place] [address] Dr. Juan Argueta Lymphocytes/100 WBC (Bld) 34.9 % Normal 20.5-60.0 [facility] Comment on above: Performed By: #### C MP, T4, TSH #### [facility] [address] [place] [address] Dr. Juan Argueta MANUAL DIFF REQ NO Normal [facility] Comment on above: Performed By: #### C MP, T4, TSH #### [facility] [address] [place] [address] Dr. Juan Argueta MCH (RBC) [Entitic mass] 29.0 pg Normal 25.9-34.0 [facility] Comment on above: Performed By: #### C MP, T4, TSH #### [facility] [address] [place] [address] Dr. Juan Argueta MCHC (RBC) [Mass/Vol] 33.3 g/dL Normal 29.9-35.[address] [facility] Comment on above: Performed By: #### C MP, T4, TSH #### [facility] [address] [place] [address] Dr. Juan Argueta MCV (RBC) [Entitic vol] 87.0 fL Normal 80.0-94.[address] [facility] Comment on above: Performed By: #### C MP, T4, TSH #### [facility] [address] [place] [address] Dr. Juan Argueta MONO # 0.3 103/ul Normal 0.3-0.[address] [facility] Comment on above: Performed By: #### C MP, T4, TSH #### [facility] [address] [place] [address] Dr. Juan Argueta Monocytes/100 WBC (Bld) 6.8 % Normal 1.7-12.0 [facility] Comment on above: Performed By: #### C MP, T4, TSH #### [facility] [address] [place] [address] Dr. Juan Argueta NEUT # 2.2 103/ul Normal 1.4-6.5 [facility] Comment on above: Performed By: #### C MP, T4, TSH #### [facility] [address] [place] [address] Dr. Juan Argueta Neutrophils/100 WBC (Bld) 51.9 % Normal 43.0-75.0 [facility] Comment on above: Performed By: #### C MP, T4, TSH #### [facility] [address] [place] [address] Dr. Juan Argueta Platelet mean volume (Bld) [Entitic vol] 10.1 fL Normal 9.5-13.5 [facility] Comment on above: Performed By: #### C MP, T4, TSH #### [facility] [address] [place] [address] Dr. Juan Argueta PLT 252 103/ul Normal 150-450 [facility] Comment on above: Performed By: #### C MP, T4, TSH #### [facility] [address] [place] [address] Dr. Juan Argueta RBC 4.83 106/ul Normal 4.70-6.[address] [facility] Comment on above: Performed By: #### C MP, T4, TSH #### [facility] [address] [place] [address] Dr. Juan Argueta WBC 4.2 103/ul Normal 4.0-11.0 [facility] Comment on above: Performed By: #### C MP, T4, TSH #### [facility] [address] [place] [address] Dr. Juan Argueta FREE T4on 09-20-2022 Free T4 [Mass/Vol] 0.50 ng/dL Critically low 0.76-1.46 [facility] Comment on above: Performed By: #### B 12FOL, FT4 #### [facility] [address] [place] [address] Dr. Juan Argueta PROF 14(COMP METB)on 022 Albumin [Mass/Vol] 4.1 g/dL Normal 3.4-5.0 [facility] Comment on above: Performed By: #### C MP, T4, TSH #### [facility] [address] [address] [address] Juan Argueta Albumin/Globulin [Mass ratio] 1.1 {ratio} Normal [facility] Comment on above: Performed By: #### C MP, T4, TSH #### [facility] [address] [address] [address] Juan Argueta ALP [Catalytic activity/Vol] 107 U/L Normal 46-116 [facility] Comment on above: Performed By: #### C MP, T4, TSH #### [facility] [address] [place] [address] Dr. Juan Argueta ALT [Catalytic activity/Vol] 79 U/L Critically high 16-63 [facility] Comment on above: Performed By: #### C MP, T4, TSH #### [facility] [address] [address] [address] Juan Argueta Anion gap [Moles/Vol] 8.4 mmol/L Normal [facility] Comment on above: Performed By: #### C MP, T4, TSH #### [facility] [address] [place] [address] Dr. Juan Argueta AST [Catalytic activity/Vol] 32 U/L Normal 15-37 [facility] Comment on above: Performed By: #### C MP, T4, TSH #### [facility] [address] [address] [address] Juan Argueta Bilirubin [Mass/Vol] 0.2 mg/dL Normal 0.2-1.0 [facility] Comment on above: Performed By: #### C MP, T4, TSH #### [facility] [address] [place] [address] Dr. Juan Argueta Calcium [Mass/Vol] 9.2 mg/dL Normal 8.5-10.1 [facility] Comment on above: Performed By: #### C MP, T4, TSH #### [facility] [address] [place] [address] Dr. Juan Argueta Chloride [Moles/Vol] 104 mmol/L Normal 98-[address] [facility] Comment on above: Performed By: #### C MP, T4, TSH #### [facility] [address] [place] [address] Dr. Juan Argueta CO2 [Moles/Vol] 30.2 mmol/L Normal 21.0-32.0 [facility] Comment on above: Performed By: #### C MP, T4, TSH #### [facility] [address] [place] [address] Dr. Juan Argueta Creatinine [Mass/Vol] 1.67 mg/dL Critically high 0.70-1.30 [facility] Comment on above: Performed By: #### C MP, T4, TSH #### [facility] [address] [place] [address] Dr. Juan Argueta EGFR-AF EQUATORIAL GUINEAN 58 mL/min/1.73m2 Critically low >=60 [facility] Comment on above: Performed By: #### C MP, T4, TSH #### [facility] [address] [place] [address] Dr. Juan Argueta EGFR-NON AF EQUATORIAL GUINEAN 48 mL/min/1.73m2 Critically low >=60 [facility] Comment on above: Performed By: #### C MP, T4, TSH #### [facility] [address] [place] [address] Dr. Juan Argueta Globulin (S) [Mass/Vol] 3.6 g/dL Normal [facility] Comment on above: Performed By: #### C MP, T4, TSH #### [facility] [address] [place] [address] Dr. Juan Argueta Glucose [Mass/Vol] 94 mg/dL Normal 74-106 [facility] Comment on above: Performed By: #### C MP, T4, TSH #### [facility] [address] [place] [address] Dr. Juan Argueta Potassium [Moles/Vol] 4.6 mmol/L Normal 3.5-5.1 [facility] Comment on above: Performed By: #### C MP, T4, TSH #### [facility] [address] [place] [address] Dr. Juan Argueta Protein [Mass/Vol] 7.7 g/dL Normal 6.4-8.2 [facility] Comment on above: Performed By: #### C MP, T4, TSH #### [facility] [address] [place] [address] Dr. Juan Argueta Sodium [Moles/Vol] 138 mmol/L Normal 136-145 [facility] Comment on above: Performed By: #### C MP, T4, TSH #### [facility] [address] [place] [address] Dr. Juan Argueta Urea nitrogen [Mass/Vol] 28.0 mg/dL Critically high 7.0-18.0 [facility] Comment on above: Performed By: #### C MP, T4, TSH #### [facility] [address] [place] [address] Dr. Juan Argueta Urea nitrogen/Creatinine [Mass ratio] 16.8 mg/mg Normal [facility] Comment on above: Performed By: #### C MP, T4, TSH #### [facility] [address] [place] [address] Dr. Juan Argueta TSHon 09-20-2022 TSH 1.895 uIU/mL Normal 0.358-3.740 [facility] Comment on above: Performed By: #### C MP, T4, TSH #### [facility] [address] [place] [address] Dr. Juan Argueta VIT B12 AND FOLATEon 022 Cobalamin (Vitamin B12) [Mass/Vol] 350.0 pg/mL Normal 193.0-986.0 [facility] Comment on above: Performed By: #### B 12FOL, FT4 #### [facility] [address] [place] [address] Dr. Juan Argueta FOLATE 16.40 ng/mL Normal 8.60-58.90 [facility] Comment on above: Performed By: #### B 12FOL, FT4 #### [facility] [address] [place] [address] Dr. Juan Argueta VITAMIN D 25 OHon 09-20-2022 VIT D 25-OH 49.9 ng/mL Normal [facility] Comment on above: Performed By: #### V ITAD #### [facility] [address] [place] [address] Dr. Juan Argueta VIT D RANGES SEE BELOW Normal [facility] Comment on above: Result Comment: <20 ng/mL Vit D deficient 20 - <30 ng/mL Vit D insufficient 30 - 100 ng/mL Vit D sufficient >100 ng/mL Potential Toxicity Performed By: #### V ITAD #### [facility] [address] [place] [address] Dr. Juan Argueta CBC AUTO DIFFon 09-10-2022 BASO # 0.0 103/ul Normal 0.0-0.1 [facility] Comment on above: Performed By: #### C BC #### [facility] [address] [place] [address] Dr. Juan Argueta Basophils/100 WBC (Bld) 0.3 % Normal 0.2-2.0 [facility] Comment on above: Performed By: #### C BC #### [facility] [address] [place] [address] Dr. Juan Argueta EO # 0.1 103/ul Normal 0.0-0.7 [facility] Comment on above: Performed By: #### C BC #### [facility] [address] [place] [address] Dr. Juan Argueta Eosinophils/100 WBC (Bld) 1.5 % Normal 0.9-7.0 [facility] Comment on above: Performed By: #### C BC #### [facility] [address] [place] [address] Dr. Juan Argueta Erythrocyte distribution width (RBC) [Ratio] 12.8 % Normal 11.0-15.0 [facility] Comment on above: Performed By: #### C BC #### [facility] [address] [place] [address] Dr. Juan Argueta Hematocrit (Bld) [Volume fraction] 38.6 % Critically low 42.0-54.0 [facility] Comment on above: Performed By: #### C BC #### [facility] [address] [address] [address] Juan Argueta Hemoglobin (Bld) [Mass/Vol] 13.2 g/dL Critically low 14.0-18.0 [facility] Comment on above: Performed By: #### C BC #### [facility] [address] [address] [address] Juan Argueta IG # 0.02 10e3/ul Normal 0.00-0.03 [facility] Comment on above: Performed By: #### C BC #### [facility] [address] [place] [address] Dr. Juan Agrueta IG % 0.2 % Normal 0.0-0.5 [facility] Comment on above: Performed By: #### C BC #### [facility] [address] [place] [address] Dr. Juna Argueta LYMPH # 0.9 103/ul Critically low 1.2-3.8 [facility] Comment on above: Performed By: #### C BC #### [facility] [address] [place] [address] Dr. Juan Argueta Lymphocytes/100 WBC (Bld) 10.0 % Critically low 20.5-60.0 [facility] Comment on above: Performed By: #### C BC #### [facility] [address] [place] [address] Dr. Juan Argueta MANUAL DIFF REQ NO Normal [facility] Comment on above: Performed By: #### C BC #### [facility] [address] [place] [address] Dr. Juan Argueta MCH (RBC) [Entitic mass] 29.2 pg Normal 25.9-34.0 [facility] Comment on above: Performed By: #### C BC #### [facility] [address] [place] [address] Dr. Juan Argueta MCHC (RBC) [Mass/Vol] 34.2 g/dL Normal 29.9-35.2 [facility] Comment on above: Performed By: #### C BC #### [facility] [address] [address] [address] Juan Argueta MCV (RBC) [Entitic vol] 85.4 fL Normal 80.0-94.0 [facility] Comment on above: Performed By: #### C BC #### [facility] [address] [address] [address] Juan Argueta MONO # 0.5 103/ul Normal 0.3-0.[address] [facility] Comment on above: Performed By: #### C BC #### [facility] [address] [address] [address] Juan Argueta Monocytes/100 WBC (Bld) 5.3 % Normal 1.7-12.0 [facility] Comment on above: Performed By: #### C BC #### [facility] [address] [address] [address] Juan Argueta NEUT # 7.4 103/ul Critically high 1.4-6.5 [facility] Comment on above: Performed By: #### C BC #### [facility] [address] [address] [address] Juan Argueta Neutrophils/100 WBC (Bld) 82.7 % Critically high 43.0-75.0 [facility] Comment on above: Performed By: #### C BC #### [facility] [address] [address] [address] Juan Argueta Platelet mean volume (Bld) [Entitic vol] 9.8 fL Normal 9.5-13.[address] [facility] Comment on above: Performed By: #### C BC #### [facility] [address] [address] [address] Juan Argueta PLT 226 103/ul Normal 150-[address] [facility] Comment on above: Performed By: #### C BC #### [facility] [address] [address] [address] Juan Argueta RBC 4.52 106/ul Critically low 4.70-6.10 [facility] Comment on above: Performed By: #### C BC #### [facility] [address] [place] [address] Dr. Juan Argueta WBC 8.9 103/ul Normal 4.0-11.0 [facility] Comment on above: Performed By: #### C BC #### [facility] [address] [place] [address] HEAD WO CONon [...] JON PARKS Date: 2022-09-10 12:09 Normal [facility] PROF 14(COMP METB)on 022 Albumin [Mass/Vol] 4.1 g/dL Normal 3.4-5.0 [facility] Comment on above: Performed By: #### C MP #### [facility] [address] [place] [address] Dr. Juan Argueta Albumin/Globulin [Mass ratio] 1.2 {ratio} Normal [facility] Comment on above: Performed By: #### C MP #### [facility] [address] [place] [address] Dr. Juan Argueta ALP [Catalytic activity/Vol] 100 U/L Normal 46-116 [facility] Comment on above: Performed By: #### C MP #### [facility] [address] [place] [address] Dr. Juan Argueta ALT [Catalytic activity/Vol] 39 U/L Normal 16-63 [facility] Comment on above: Performed By: #### C MP #### [facility] [address] [address] [address] Juan Argueta Anion gap [Moles/Vol] 16.5 mmol/L Normal [facility] Comment on above: Performed By: #### C MP #### [facility] [address] [address] [address] Juan Argueta AST [Catalytic activity/Vol] 35 U/L Normal 15-37 [facility] Comment on above: Performed By: #### C MP #### [facility] [address] [address] [address] Juan Argueta Bilirubin [Mass/Vol] 0.3 mg/dL Normal 0.2-1.0 [facility] Comment on above: Performed By: #### C MP #### [facility] [address] [address] [address] Juan Argueta Calcium [Mass/Vol] 8.2 mg/dL Critically low 8.5-10.1 [facility] Comment on above: Performed By: #### C MP #### [facility] [address] [address] [address] Juan Argueta Chloride [Moles/Vol] 101 mmol/L Normal 98-107 [facility] Comment on above: Performed By: #### C MP #### [facility] [address] [address] [address] Juan Argueta CO2 [Moles/Vol] 18.8 mmol/L Critically low 21.0-32.0 [facility] Comment on above: Performed By: #### C MP #### [facility] [address] [address] [address] Juan Argueta Creatinine [Mass/Vol] 1.37 mg/dL Critically high 0.70-1.30 [facility] Comment on above: Performed By: #### C MP #### [facility] [address] [address] [address] Juan Argueta EGFR-AF EQUATORIAL GUINEAN >60 Normal >=60 [facility] Comment on above: Performed By: #### C MP #### [facility] [address] [place] [address] Dr. Juan Argueta EGFR-NON AF EQUATORIAL GUINEAN >60 Normal >=60 [facility] Comment on above: Performed By: #### C MP #### [facility] [address] [address] [address] Juan Argueta Globulin (S) [Mass/Vol] 3.3 g/dL Normal [facility] Comment on above: Performed By: #### C MP #### [facility] [address] [address] [address] Juan Argueta Glucose [Mass/Vol] 103 mg/dL Normal 74-106 [facility] Comment on above: Performed By: #### C MP #### [facility] [address] [place] [address] Dr. Juan Argueta Potassium [Moles/Vol] 4.3 mmol/L Normal 3.5-5.1 [facility] Comment on above: Performed By: #### C MP #### [facility] [address] [place] [address] Dr. Juan Argueta Protein [Mass/Vol] 7.4 g/dL Normal 6.4-8.2 [facility] Comment on above: Performed By: #### C MP #### [facility] [address] [place] [address] Dr. Juan Argueta Sodium [Moles/Vol] 132 mmol/L Critically low 136-145 [facility] Comment on above: Performed By: #### C MP #### [facility] [address] [place] [address] Dr. Juan Argueta Urea nitrogen [Mass/Vol] 23.0 mg/dL Critically high 7.0-18.0 [facility] Comment on above: Performed By: #### C MP #### [facility] [address] [place] [address] Dr. Juan Argueta Urea nitrogen/Creatinine [Mass ratio] 16.8 mg/mg Normal [facility] Comment on above: Performed By: #### C MP #### [facility] [address] [place] [address] HEAD WO CONon [...] by: RISA PENNY Date: 2022-07-19 10:21 Normal [facility] Follow Up (Endocrinology)on 03-25-2022 Follow Up [...] Services - Lab To Draw (Blood Test); Due:[id number];Ordered ; For: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, Hypocalcemia, [...] visit hypothyrpidism and hypercalcemia History of Present Xvtaohs13 yo male with severe mental retardation, autism, bipolar disorder,severe psychosis,GERD, HTN , hypercalcemia [facility] 12/15 [facility] with exacerbation by lithium intake (that has [...] then eats a day after. not on [place] 300 mg , did not changed since last visit as per sheet . guardian is brother Yogesh nb [phone] seeing GI , EGD was fine. no acute issues. is losing weight again , had a lip biopsy and infected ulcer is healed, weight loss has stopped, on Lt4 50 mcgq day and we need recent albs, slightly more agitated , had a fall with bruise on his face , [place] physician is following. no changes in neuro exam. TSH was normal on labs , , calcium and sodium normal, no acute issues (more content not included)... Normal [employer] XR MODIFIED BARIUM SWALLOWon 09-11-2020 No radiographic evidence of tracheal aspiration. For further information as well as dietary recommendations, please refer to the speech pathologist's detailed report. [employer] Workstation ID: [id number] [facility] EXAMINATION: XR MODIFIED BARIUM SWALLOW HISTORY: Dx: [...] no evidence of penetration or tracheal aspiration. [facility] Interface, Rad In [employer] - 09/11/2020 10:03 PM EDT EXAMINATION: [...] refer to the speech pathologist's detailed report. [employer] Workstation ID: [id number] [facility] XR MODIFIED BARIUM SWALLOW EXAMINATION: XR MODIFIED [...] refer to the speech pathologist's detailed report. [employer] Workstation ID: [id number] Dictated by: BRANDAN CERVANTES on MonSep 11, 2020 2:10:21 PM EDT Transcribed by: BONIFACIO IBARRA on MonSep 11, 2020 2:53:24 PM EDT Finalized by: BRANDAN CERVANTES on MonSep 11, 2020 10:00:27 PM EDT [facility] Comment on above: Order Comment: Miriam hung Injury/Trauma or Illness?:Illness/Other How long have you had these symptoms (acute/chronic)?:Chronic Reason for exam?:Pharyngeal dysphagia Type of Exam?:Ongoing Additional signs and symptoms?:Pharyngeal dysphagia Fluoro time in minutes:1.05 Fluoro dose in mGy?:36.08 COVID-19, MOLECULARon 2019 SARS-COV-2 (CEPHEID) Not Detected Normal Not Detected [facility] Comment on above: Result Comment: This test was performed under the FDA's Emergency Use Authorization (EUA). Testing was performed using the Xpert Xpress SARS-CoV-2 Cepheid assay on the GeneXFarehelper Dx platform. This test has not been approved for use in asymptomatic patients and its performance in this patient population has not been evaluated. Negative results do not rule out the presence of SARS-CoV-2/COVID-19. Fact sheets for this EUA can be found at the following links: For Healthcare Providers: https://www.fda.gov/media/959317/download For Patients: https://www.fda.gov/media/364989/download Performed By: #### L [id number] #### [facility] [address] [place] [address] Rustam Morillo M.D. [id number] CT ABDOMEN PELVIS W IV CONTR Vicky [...] Grabiel Aleman MD 08/09/19 Final result Normal [facility] Surgical Pathologyon 10-17-2 018 Surgical Pathology (NOTE) [id number] [place] [address] SURGICAL PATHOLOGY REPORT Patient Name: MARKEL LI MR#: [id number] Specimen #[id number] Final Diagnosis SPECIMEN A : SMALL BOWEL, [...] loss; EGD biopsy; colonoscopy, hemorrhoids; formalin time: O=8022, V=0294 Source: A: Small bowel biopsies B: Gastric [...] examination confirms the final pathologic diagnosis. Normal [facility] Comment on above: Performed By: #### P PPES #### [facility] [address] [place] [address] Vital Signs Date Time Vital Sign Value Performing Clinician Faci lity 11-15-2023 10:44-0500 Body height 182.9 cm Bree Whiting MD Work Phone: [facility] 11-15-2023 10:44-0500 Body mass index (BMI) [Ratio] 27.67 kg/m2 Bree Whiting MD Work Phone: [facility] 11-15-2023 10:44-0500 Body weight 92.53 kg Bree Whiting MD Work Phone: [facility] 10-02-2023 15:17-0500 Body temperature 96.8 [degF] Tyrese Alexander DDS Work Phone: [facility] 10-02-2023 15:17-0500 Diastolic blood pressure 91 mm[Hg] Tyrese Alexander DDS Work Phone: [facility] 10-02-2023 15:17-0500 Heart rate 58 /min Tyrese Alexander DDS Work Phone: [employer] 10-02-2023 15:17-0500 Respiratory rate 22 /min Tyrese Alexander DDS Work Phone: [employer] 10-02-2023 15:17-0500 SaO2% (BldA) [Mass fraction] 100 % Tyrese Alexander DDS Work Phone: [employer] 10-02-2023 15:17-0500 Systolic blood pressure 141 mm[Hg] Tyrese Alexander DDS Work Phone: [employer] 10-02-2023 11:35-0500 Body height 177.8 cm Tyrese Alexander DDS Work Phone: [employer] 10-02-2023 11:35-0500 Body mass index (BMI) [Ratio] 29.27 kg/m2 Tyrese Alexander DDS Work Phone: [employer] 10-02-2023 11:35-0500 Body weight 92.53 kg Tyrese Alexander DDS Work Phone: [employer] 09-15-2023 15:07-0400 Body height 179 cm Bola Claire MD Work Phone: [employer] 09-15-2023 15:07-0400 Body mass index (BMI) [Ratio] 28.97 kg/m2 Bola Claire MD Work Phone: [employer] 09-15-2023 15:07-0400 Body temperature 97.7 [degF] Bola Claire MD Work Phone: [employer] 09-15-2023 15:07-0400 Body weight 92.81 kg Bola Claire MD Work Phone: [employer] 09-15-2023 15:07-0400 Diastolic blood pressure 72 mm[Hg] B[facility] Claire MD [facility] 09-15-2023 15:07-0400 Heart rate 58 /min Bola Claire MD [facility] 09-15-2023 15:07-0400 Respiratory rate 32 /min Bola Claire MD [facility] 09-15-2023 15:07-0400 SaO2% (BldA) [Mass fraction] 99 % [facility] 09-15-2023 15:07-0400 Systolic blood pressure 112 mm[Hg] B[facility] MD [facility] 03-20-2019 12:52-0400 BMI (Body Mass Index) 22.24 kg/m2 Erin Harveyhi EW-Legbcbnzxtouv-ION [address] Work Phone: 03-20-2019 12:52-0400 Body weight 74.39 kg Erin Pan EZ-Ruasrlanzhvgm-JNS [place] [address] Work Phone: 03-20-2019 12:52-0400 BP Diastolic 72 mm[Hg] Erin Harveyhi UM-Yspidngkhphpi-KUD [place] [address] Work Phone: 03-20-2019 12:52-0400 BP Systolic 103 mm[Hg] Erin Harveyhi NF-Ndyjdshtgwynb-JXZ [place] [address] Work Phone: 03-20-2019 12:52-0400 BSA (Body Surface Area) 1.96 m2 Erin Harveyhi DS-Kwvrymgfmvslc-TRI [place] [address] Work Phone: 03-20-2019 12:52-0400 Height 182.88 cm Erin Pan VK-Ieidhrtedmypb-MMT [place] [address] Work Phone: 03-20-2019 12:52-0400 Pulse (Heart Rate) 62 /min Erin Harveyhi QH-Gihrznyxmfaoc-HIR [place] [address] Work Phone: 03-20-2019 12:52-0400 Pulse Oximetry 100 % Erin Davenportollaelizabeth VF-Sbpiaztrizfge-OAF [place] [address] Work Phone: 03-20-2019 12:52-0400 Respiratory Rate 14 /min Erin Davenportollaelizabeth LE-Wnxjgpqkeskbh-ALG [place] [address] Work Phone: Encounters Encounter Date Encounter Type Care Provider Facility Start: 05-15-2024 End: 05-15-2024 ambulatory [facility] Start: 12-15-2023 End: 12-16-2023 ambulatory [facility] Facility[facility] Start: 11-15-2023 End: 11-15-2023 ambulatory [facility] Start: 11-15-2023 End: 11-15-2023 Office outpatient visit 25 minutes Bree Whiting MD Work Phone: [facility] [place] Comment on above: Hypercalcemia (Prima ry Dx); Hypothyroidism, unspecified type Start: 10-02-2023 End: 10-02-2023 ambulatory TYRESE ALEXANDER Facility:[facility] Start: 10-02-2023 End: 10-02-2023 Subsequent hospital visit by physician Tyrese Alexander DDS Work Phone: [facility] Start: 10-02-2023 End: 10-03-2023 ambulatory UNKNOWN PROVIDER Facility:[facility] Start: 10-02-2023 End: 10-03-2023 Patient encounter procedure Tyrese Alexander DDS Work Phone: [facility] Dentistry Start: 09-27-2023 Telephone encounter Cheri mercado RN [facility] Pre Surgical Evaluation Start: 09-19-2023 Telephone encounter Lina rubin RN [facility] Pre Surgical Evaluation Comment on above: Pre-surgical Evaluat ion (Informed Consent & Anesthesia consent obtained) Start: 09-15-2023 Encounter for other preprocedural examination UNKNOWN PROVIDER [facility] Start: 09-15-2023 End: 09-15-2023 ambulatory UNKNOWN PROVIDER Facility:[facility] Start: 09-15-2023 End: 09-15-2023 Patient encounter procedure Pse Anesthesia [facility] Pre Surgical Evaluation Comment on above: Pre-op evaluation (P rimary Dx) Start: 09-15-2023 Admission to [facility] Ramu Singh Marciomaru DDS Work Phone: [facility] Start: 09-15-2023 End: 09-15-2023 Office outpatient visit 25 minutes Bola Claire MD Work Phone: [facility] Comment on above: Pre-op exam (Primary Dx); Body mass index (BMI) 28.0-28.9, adult Start: 09-15-2023 End: 09-15-2023 Preprocedural examination done Bola Claire MD Work Phone: [facility] Work Phone: Start: 08-18-2023 Admission to [facility] Carline Mcfarland DDS Work Phone: [facility] Start: 03-14-2023 ambulatory Erin Pan Facility:[id number] Start: 01-18-2023 End: 01-19-[address] RALEIGH EPPS Facility:H1 Start: 01-04-2023 End: 01-05-[address] RALEIGH EPPS Facility:H1 Start: 10-04-2022 End: 10-05-[address] DOCTOR MULLER Facility:H1 Start: 09-30-2022 Office outpatient vi sit 15 minutes Sai Batres Work Phone: [facility] Work Phone: Start: 09-30-2022 ambulatory Erin Pan Facility:[id number] Start: 09-20-2022 End: 09-21-[address] RALEIGH EPPS Facility:H1 Start: 09-10-2022 End: 09-10-[address] WES Snoi Facility:H1 Start: 07-19-2022 End: 07-19-[address] RALEIGH EPPS Facility:H1 Start: 03-25-2022 ambulatory Erin Pan Facility:[id number] Start: 03-16-2022 End: 03-21-2022 Patient encounter procedure Viry Ortiz RDH Work Phone: [facility] Start: 03-07-2022 End: 03-07-2022 ambulatory JAYDE NUNEZ . Facility:H1 Start: 09-11-2020 End: 09-12-2020 Patient encounter procedure [facility] Start: 09-11-2020 End: 09-11-2020 Subsequent hospital visit by physician Raleigh Epps Work Phone: [facility] Comment on above: Pharyngeal dysphagia Start: 09-07-2020 End: 09-07-2020 Patient encounter procedure RALEIGH [facility] Start: 08-09-2019 End: 08-12-2019 Patient encounter procedure [facility] Start: 03-20-2019 Patient encounter procedure Erin Duke Nematollahi TF-Fibmevlewljnl-KUT [place] [address] Work Phone: Start: 11-21-2018 Patient encounter procedure Erinalva Wall Nematollahi PU-Uqzzpgslmcjyk-QOC [place] [address] Work Phone: Start: 08-29-2018 End: 08-29-2018 Patient encounter procedure [facility] Start: 08-15-2018 Patient encounter procedure Erinalva Wall Nematollahi VI-Tkpruhgmiqzbv-DYX [place] [address] Work Phone: Start: 03-16-2018 Patient encounter procedure Erin Duke Nematollahi CS-Amyihwxichwok-KUZ [place] [address] Work Phone: Start: 11-17-2017 Patient encounter procedure Erin Duke Nematollahi BT-Dofkgllgbcfyb-IXF [place] [address] Work Phone: Start: 05-26-2017 Patient encounter procedure Erin Duke Nematollahi UD-Swppagodcnlmv-HVZ [place] [address] Work Phone: Procedures Date Procedure [...] f 2) Zoster Vaccines (1 of 2) [facility] Start: 03-07-2032 DTaP/Tdap/Td Vaccine s (9 - Td or Tdap) DTaP/Tdap/Td Vaccines (9 - Td or Tdap) [facility] Start: 11-15-2026 Tetanus [facility] Start: 09-15-2024 Creatinine measurement Basic Metabol ic Panel [facility] Start: 05-15-2024 End: 05-15-2024 Patient encounter procedure 05/15/2024 11:40 AM EDT Office Visit [facility] [place] [address] [address] [place] [address] [place] [address] [address] Department of [place] [address] [facility] [place] Start: 11-15-2023 End: 11-15-2024 Calcitriol [Mass/volume] in Serum or Plasma Vitamin D 1,25 Dihydroxy (for eval of hypercalcemia) Lab Routine Hypercalcemia Expected: 11/15/2023, Expires: 11/15/2024 [facility] Work Phone: Comment on above: Expected: 11/15/2023 , Expires: 11/15/2024 Start: 11-15-2023 End: 11-15-2024 Calcium.ionized [Moles/volume] in Blood Calcium, Ionized Lab Routine Hypercalcemia Expected: 11/15/2023, Expires: 11/15/2024 [facility] Work Phone: Comment on above: Expected: 11/15/2023 , Expires: 11/15/2024 Start: 11-15-2023 End: 11-15-2024 Hepatic function 2000 panel - Serum or Plasma Hepatic Function Panel Lab Routine Hypercalcemia Expected: 11/15/2023, Expires: 11/15/2024 [facility] Work Phone: Comment on above: Expected: 11/15/2023 , Expires: 11/15/2024 Start: 11-15-2023 End: 11-15-2024 Parathyrin.intact [Mass/volume] in Serum or Plasma Parathyroid Hormone, Intact Lab Routine Hypercalcemia Expected: 11/15/2023, Expires: 11/15/2024 [facility] Service Area Work Phone: Comment on above: Expected: 11/15/2023 , Expires: 11/15/2024 Start: 11-15-2023 End: 11-15-2024 Renal function 2000 panel - Serum or Plasma Renal Function Panel Lab Routine Hypercalcemia Expected: 11/15/2023, Expires: 11/15/2024 [facility] Work Phone: Comment on above: Expected: 11/15/2023 , Expires: 11/15/2024 Start: 11-15-2023 End: 11-15-2024 Thyrotropin [Units/volume] in Serum or Plasma Thyroid Stimulating Hormone Lab Routine Hypothyroidism, unspecified type Expected: 11/15/2023, Expires: 11/15/2024 [facility] Work Phone: Comment on above: Expected: 11/15/2023 , Expires: 11/15/2024 Start: 11-15-2023 End: 11-15-2024 Thyroxine (T4) free [Mass/volume] in Serum or Plasma Thyroxine, Free Lab Routine Hypothyroidism, unspecified type Expected: 11/15/2023, Expires: 11/15/2024 [facility] Work Phone: Comment on above: Expected: 11/15/2023 , Expires: 11/15/2024 Start: 10-02-2023 End: 10-02-2023 DENTAL RESTORATIONS DENTAL RESTORATIONS Routine scheduled Caries 10/02/2023 1:10 PM EST [facility] Start: 10-02-2023 End: 10-02-2023 Admission to same day surgery center 10/02/2023 11:24 AM EST - 10/02/2023 1:21 PM EST Surgery [facility] [address] [place] [address] Tyrese Alexander, DDS [address] [place] [address] DENTAL RESTORATIONS [facility] Surgery Comment on above: DENTAL RESTORATIONS Start: 10-02-2023 End: 10-02-2023 DENTAL RESTORATIONS DENTAL RESTORATIONS Routine scheduled Caries 10/02/2023 11:24 AM EST [facility] Start: 10-02-2023 End: 10-02-2023 Admission to same day surgery center 10/02/2023 7:30 AM EST - 10/02/2023 9:27 AM EST Surgery [facility] [address] [id number] Tyrese Alexander, DDS [address] [place] [id number] DENTAL RESTORATIONS [facility] Surgery Comment on above: DENTAL RESTORATIONS Start: 10-02-2023 End: 10-02-2023 DENTAL RESTORATIONS DENTAL RESTORATIONS Routine scheduled Caries 10/02/2023 7:30 AM EST [facility] Start: 10-02-2023 Subsequent hospital visit by physician [facility] Surgery Start: 10-02-2023 End: 10-02-2023 Patient encounter procedure [facility] Dentistry Start: 09-15-2023 End: 09-15-2023 Patient encounter procedure 09/15/2023 2:00 PM EDT Office Visit [facility] [address] [place] [address] Bola Claire MD [address] [place] [address] [facility] Start: 07-14-2023 COVID-19 Vaccine ( season) COVID-19 Vaccine ( season) [facility] Start: 07-14-2023 Influenza vaccination Influenza Vacc ine (#1) [facility] Start: 02-09-2021 COVID-19 Vaccine (3 - Pfizer series) COVID-19 Vaccine (3 - Pfizer series) [facility] Start: 07-14-2020 Influenza vaccinatio n given Sequential Influenza Vaccine (#1) [facility] Start: 08-15-2019 Thyroid stimulating hormone measurement TSH Level [facility] Start: 2018 HPV Vaccine (optiona l start 27-45 years) HPV Vaccine (optional start 27-45 years) [facility] Start: 07-14-2013 Annual wellness visit Annual W ellness Visit (G0438) [facility] Start: 10-28-2009 Varicella vaccination Varicell a Vaccines (1 of 2 - 2-dose childhood series) [facility] Start: 2009 Hepatitis C antibody , confirmatory test Hepatitis C Screening [facility] Start: 2009 [facility] C screening [facility] Start: 2006 HIV screening [facility] Start: 1994 History and physical examination, annual for health maintenance Wellness Visit [facility] Start: 1991 Basic metabolic 2000 panel - Serum or Plasma Basic Metabolic Panel [facility] Start: 1991 Creatinine measurement Basic Metabol ic Panel [facility] Start: 1991 Hepatitis B Vaccines (1 of 3 - 3-dose series) Hepatitis B Vaccines (1 of 3 - 3-dose series) [facility] Start: 1991 HIV screening HIV Screening [facility] Start: 1991 Lipid panel Lipid Panel [facility] Start: 1991 Medicare Annual Wellness Visit Medicare Annual Wellness Visit (AWV) [facility] Start: 1991 Tetanus vaccination Tetanus: Every 1 0yrs [facility] Start: 1991 Thyroid stimulating hormone measurement TSH [facility] End: 09-15-2024 Basic metabolic 2000 panel - Serum or Plasma BASIC METABOLIC PANEL Lab Routine Pre-op exam 1 Occurrences starting 09/15/2023 until 09/15/2024 [facility] Work Phone: Comment on above: 1 Occurrences starti ng 09/15/2023 until 09/15/2024 CBC panel - Blood by Automated count COMPLETE BLOOD COUNT Lab Routine Pre-op exam Ordered: 09/15/2023 [facility] Comment on above: Ordered: 09/15/2023 DENTAL RESTORATIONS DENTAL FRANKLYN RATIONS Routine scheduled Caries [facility] Immunizations Immunization Date Immunization Notes Care Provider [place] [place] 03-07-2022 diphtheria, tetanus toxoids and pertussis vaccine Viry Ortiz Work Phone: [facility] 09-08-2021 influenza, injectabl e, quadrivalent, preservative free Viry Angel RD Work Phone: [facility] 09-08-2021 influenza virus vaccine, unspecified formulation Carline Greenwood Bruna DDS Work Phone: [facility] 12-15-2020 Pfizer SARS-COV-2 (COVID-19) vaccine, age 12+ yrs, mRNA, spike protein, LNP, preservative free, 30 mcg/0.3mL dose (TDF=287) Viry Angel RD Work Phone: [facility] 11-24-2020 Pfizer SARS-COV-2 (COVID-19) vaccine, age 12+ yrs, mRNA, spike protein, LNP, preservative free, 30 mcg/0.3mL dose (BCL=765) Viry Angel RD Work Phone: [facility] 08-27-2020 influenza, injectabl e, quadrivalent, preservative free Viry Angel RD Work Phone: [facility] 08-22-2018 influenza, injectabl e, quadrivalent, contains preservative Viry Angel RD Work Phone: [facility] Work Phone: 09-06-2017 influenza, injectabl e, quadrivalent, contains preservative Viry Angel RD Work Phone: [facility] 11-15-2016 tetanus toxoid, redu danika diphtheria toxoid, and acellular pertussis vaccine, adsorbed [facility] Comment on above: Series: 09-03-2015 influenza, injectabl e, quadrivalent, preservative free Viry Angel RD Work Phone: [facility] 09-30-2009 novel [id number], preservative-free, injectable Viry Angel RDH Work Phone: [facility] 09-04-2008 influenza virus vaccine, whole virus Viry Gutierrezrillo RD Work Phone: [facility] 08-29-2007 influenza, seasonal, injectable Viry Angel RD Work Phone: [facility] 03-29-2007 meningococcal polysaccharide (groups A, C, Y and W-135) diphtheria toxoid conjugate vaccine (MCV4P) Viry Angel Work Phone: [facility] 09-29-2006 tetanus toxoid, redu danika diphtheria toxoid, and acellular pertussis vaccine, adsorbed Viry Angel Work Phone: [facility] 09-12-2006 influenza, seasonal, injectable Viry Angel RD Work Phone: [facility] 06-25-2003 measles, mumps and rubella virus vaccine Viry Angel Work Phone: [facility] 09-25-1996 diphtheria, tetanus toxoids and pertussis vaccine Viry Angel Work Phone: [facility] 09-25-1996 poliovirus vaccine, inactivated Viry Angel Work Phone: [facility] 02-05-1993 diphtheria, tetanus toxoids and pertussis vaccine Viry Angel RD Work Phone: [facility] 11-23-1992 haemophilus influenz ae type b vaccine, conjugate unspecified formulation Viry Angel Work Phone: [facility] 11-23-1992 measles, mumps and rubella virus vaccine Viry Angel RD Work Phone: [facility] 10-02-1992 poliovirus vaccine, inactivated Viry Angel RD Work Phone: [facility] 02-03-1992 diphtheria, tetanus toxoids and pertussis vaccine Viry Angel RD Work Phone: [facility] 02-03-1992 haemophilus influenz ae type b vaccine, conjugate unspecified formulation Viry Angel RD Work Phone: [facility] 1991 diphtheria, tetanus toxoids and pertussis vaccine Viry Angel RD Work Phone: [facility] 1991 haemophilus influenz ae type b vaccine, conjugate unspecified formulation Viry Angel RD Work Phone: [facility] 1991 trivalent poliovirus vaccine, live, oral Viry Angel RD Work Phone: [facility] 1991 diphtheria, tetanus toxoids and pertussis vaccine Viry Angel RD Work Phone: [facility] 1991 haemophilus influenz ae type b vaccine, conjugate unspecified formulation Viry Angel Work Phone: [facility] 1991 trivalent poliovirus vaccine, live, oral Viry Angel Work Phone: [facility] Payers Date Payer Category Payer Unknown 2023 Unknown [id number] 2020 Medicaid MEDICAID [facility] [id number] 2020-Present [id number] 2016 Medicare [id number] 2012 Medicare MEDICARE MEDICAR E PART A & B [id number] 2012-Present [address] [place] [address] Medicare [id number] 2010 Medicaid [id number] 1991 Unknown [id number] [id number]6 1991 Unknown [id number] 2.16.840.1.901627.3.579.2.176 1991 Unknown [id number] 2.16.840.1.410525.3.579.2.903 1991 Unknown [id number] 2.16.840.1.838785.3.579.2.593 1991 Unknown [id number] 2.16.840.1.145113.3.579.2.593 1991 Unknown [id number] 2.16.840.1.403932.3.579.2.593 1991 Unknown [id number] 2.16.840.1.316126.3.579.2.593 1991 Unknown [id number] 2.16.840.1.075516.3.579.2.593 1991 Unknown [id number] 2.16.840.1.472468.3.579.2.593 1991 Unknown [id number] 2.16.840.1.529944.3.579.2.593 1991 Unknown [id number] 2.16.840.1.400711.3.579.2.356 1991 Unknown [id number] 2.16.840.1.490178.3.579.2.356 1991 Unknown [id number] 2.16.840.1.772088.3.579.2.356 1991 Unknown [id number] 2.16.840.1.860463.3.579.2.732 1991 Unknown [id number] 2.16.840.1.805177.3.579.2.732 1991 Unknown [id number] 2.16.840.1.452915.3.579.2.732 1991 Unknown [id number] 2.16.840.1.592437.3.579.2.732 1991 Unknown [id number] 2.16.840.1.124535.3.579.2.727 1991 Unknown [id number] 2.16.840.1.729152.3.579.2.1244 1991 Unknown [id number] 2.16.840.1.734950.3.579.2.1244 1959 Medicaid [id number] 1959 Medicare [id number] Social History Date Type Detail Facility Tobacco smoking status NHIS Unknown if ever smoked EH-Cghywpqrmuewh-WZB [place] [address] Work Phone: Start: 1991 Sex Assigned At Not on file [facility] Exposure to SARS-CoV-2 (event) Not sure [facility] Start: 12-07-2017 Tobacco smoking status AKIS Never smoked tobacco [facility] Start: 12-07-2017 Tobacco use and exposure Smokeless tobacco non-user [facility] Never smoker Never smoker [facility]Endocrinolog y[facility] Work Phone: Gender identity Not on file [facility] Tobacco smoking status AKIS Tobacco smoking consumption unknown [facility] Work Phone: Start: 11-05-2023 End: 11-15-2023 Exposure to SARS-CoV-2 (event) Yes [facility] NEGATED: Highlighted row - - VU-Vkyiukmangkar-PYL [place] [address] Work Phone: Functional Status Date Assessment Result Facility NEGATED: Highlighted row Functional performance Functional status health issues are not documented Disease VX-Ddtkgrmcajmtf-JL C [place] [address] Work Phone: Mental Status Date Assessment Result Facility NEGATED: Highlighted row Cognitive function [Interpretation] Cognitive status health issues are not documented Disease ON-Smiowpcpnlwod-HQ C [place] [address] Work Phone: Clinical Notes [...] is accoumpanied by a behavioral help from [facility] . He states that the patient has been in good spirits with no violent outbursts. Sleep is good. No issues with bowel abnormalities. No cold or heat intolerance. Wt and appetitie is stable. No polyuria . No fractures recently or difficulty swallowing . He is taking levothyroxine at 4 pm in the afternoon and not from other meds. He not on [place] 300 mg anymore but is on oxecarbamzaepine [...] 2.17 m guardian is brother Yogesh nb [phone] Associated attestation - Bree Whiting MD - [...] in the note. documented in this encounter [facility] Work Phone: 11-15-2023 Instructions Bree Whiting MD - 11/15/2023 9:40 AM EST -change timing for levothyroxine to 50mcg daily at600 am hold other meds at least 30 min after -increase vitamin D to 5000 units daily -calcium 500mg (elemental ca) twice a day with meals Get your labs done now Follow up in 6 months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
== END 2024-09-17 12:49 | disposition home or self-care (01) ==
LOC: US 12:49
PROVIDERS: PCP Family Medicine; Visit Provider Family Medicine
DX: E04.1 Nontoxic single thyroid nodule (principal)
CPT/HCPCS: 76536

== ENCOUNTER 2024-09-24 06:57 | Outpatient (OUT) | payer MEDICARE, MEDICAID, SELFPAY ==
--- OUTSIDE RECORDS SUMMARY | 2024-09-24 06:59 | XMS_ITS | CCD ---
Author Organization [facility] Care Team Providers Care Technical Support Technician Name Role Phone DABOUL, ISAM Admitting Unavailable DABOUL, ISAM Attending Unavailable EPPSRALEIGH Primary Care Unavailable DABOUL, ISAM Referring Unavailable EPPSRALEIGH Primary Care Unavailable EPPSRALEIGH Admitting Unavailable EPPSRALEIGH Referring Unavailable EppsRaleigh Unavailable EppsRaleigh mccain Primary Care Provider [phone] RALEIGH EPPS Attending Unavailable EPPSRALEIGH Referring Unavailable EPPSRALEIGH Primary Care Unavailable Duke Nematollahi, Erin Unavailable Unavai Sai Tena Unavailable Unavailable Nancy DDS, Nataliia Unavailable Raleigh Epps DO Primary Care Provider [phone] Sai Batres Unavailable Unavailable Unavailable JAYDE ALEXIS [...] Unavailable Raleigh Epps DO Primary Care Provider [phone] PROVIDER, UNKNOWN Admitting Unavailable PROVIDER, UNKNOWN Attending [...] (3 sources) fluvoxaMINE; Translations: [Luvox] Drug Allergy [facility] Repository (15 sources) QUEtiapine; Translations: [SEROquel TABS] Drug Allergy 02-03-2017 Unknown [facility] [place] [address] Work Phone: (4 sources) risperiDONE; Translations: [risperiDONE TABS] Drug Allergy 02-06-2017 Unknown [facility] -[facility] [place] [address] Work Phone: (2 sources) Valproate; Translations: [Depakote] Drug Allergy [facility] -[facility] [place] [address] Work Phone: (15 sources) fluvoxaMINE; Translations: [FLUVOXAMINE] Drug Allergy 02-06-[address] [facility] Valproate; Translations: [VALPROIC ACID] Drug Allergy 02-03-2017 [facility]13 sources) risperiDONE; Translations: [RISPERIDONE] Drug Allergy 02-06-2017 [facility] (2 sources) QUEtiapine; Translations: [QUETIAPINE] Drug Allergy 02-03-2017 [facility] Repository (2 sources) Valproate; Translations: [DIVALPROEX] Drug Allergy 11-15-2023 Unknown [facility] (1 source) QUEtiapine; Translations: [SEROquel] Drug Allergy [facility] Repository Medications Current Medications Medication Drug [...] 0 Active take 4 tablets by mo [facility] in the morning, then take 8 tablets [...] daily Refills: 0 Active polyethylene glycol 3350 93426 mg powder for oral solution (2 sources) [...] chemistry] Episodic Other aftercare (1 source) Other shelter (current) drug therapy; Translations: [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 [id number] Normal [facility] Anesthesia Postprocedure Clara luationon 10-03-2023 Attic Fans Mechanic Authentication Interface Message Text Anesthesia Postoperative Assessment: [...] EVENTS: No notable events documented. Normal [facility] Anesthesia Preprocedure Eval uationon 10-02-2023 Attic Fans Mechanic Authentication Interface Message Text ASA: 3 No [...] were discussed with the patient and/or legal automotive leasing sales representative. The risks, benefits and alternatives were reviewed. Questions regarding anesthesia were answered. Patient and/or legal automotive leasing sales representative knows such anesthetics and procedures may be performed by Resident physicians, Certified Anesthesiologist Assistants, or Certified Nurse Anesthetists under the supervision of a physician. The patient /or the patient's legal automotive leasing sales representative agree with the plan for [...] DENTAL RESTORATIONS; Surgeon: Grabiel Cummings DDS; Location: [facility]; Service: Dental * EXTRACTION, TOOTH 02/06/2017 Procedure: EXTRACTION, TOOTH; Surgeon: Noé Drew DDS; Location: PERIOPERATIVE SERVICES; Service: Dental * UNLISTED PROCEDURE, DENTOALVEOLAR STRUCTURES 04/29/10 * X-RAY EXAM OF TEETH. [id number] 04/29/10 Social History Socioeconomic History * Marital [...] carbamazepine (more content not included)... Normal [facility] Attic Fans Mechanic Authentication Interface Message Text Patient taken to [...] surgical history indicates: X-RAY EXAM OF TEETH. [id number] (04/29/10) UNLISTED PROCEDURE, DENTOALVEOLAR STRUCTURES (04/29/10) DENTAL RESTORATIONS (02/06/2017) Procedure: DENTAL RESTORATIONS; Surgeon: Noé Drew DDS; Location: PERIOPERATIVE SERVICES; Service: Dental EXTRACTION, TOOTH (02/06/2017) Procedure: EXTRACTION, TOOTH; Surgeon: Noé Drew DDS; Location: PERIOPERATIVE SERVICES; Service: Dental DENTAL RESTORATIONS (02/15/2021) Procedure: DENTAL RESTORATIONS; Surgeon: Grabiel Cummings DDS; Location: [facility]; Service: Dental Allergies: Depakote [valproic acid], Luvox [fluvoxamine], Risperidone, and Seroquel [quetiapine] Basic Operating Room Facts: Surgeon(s): Tyrese Alexander DDS Anesthesiologist: Timothy Elizalde MD SPECIAL EDUCATION KINDERGARTEN TEACHER: Rainer Fatima APRN-SPECIAL EDUCATION KINDERGARTEN TEACHER Anesthesia Student: Joyce Rivers DENTAL RESTORATIONS (Bilateral) [...] was received. Rainer Fatima APRN-ARANZA Normal [facility] Blood Attestationon 10-02-20 Attic Fans Mechanic Authentication Interface Message Text Blood Attestation: ATTESTATION OF INFORMED CONSENT FOR BLOOD: The transfusion of blood and/or blood components were discussed with the patient and/or legal automotive leasing sales representative. The risks, benefits and alternatives were reviewed. Questions regarding blood transfusions were answered. The patient /or the patient's legal automotive leasing sales representative agree with the plan for transfusion of blood and/or blood components. Normal [facility] Brief Operative Noteon 10-02 Attic Fans Mechanic Authentication Interface Message Text Brief Operative Note PHE OR 3 Markel Li 33 year old male Surgical Contact Serial Number: [id number] Preoperative Diagnosis: Caries [K02.9] Autism [ F 84] Postoperative Diagnosis: * Caries [K02.9] Procedures: Full mouth X ray [59098] Comprehensive exam [35422] Prophylaxis [88905] Restorations [42990] Surgeon(s): Surgeon(s): Tyrese Alexander DDS Staff: Coal Picker Nurse: Nina Galan RN Batteryman: Ca Raza DDS; Rosas Narayanan DDS Anesthesia: General Anesthesiologist: Timothy Elizalde MD SPECIAL EDUCATION KINDERGARTEN TEACHER: Rainer Fatima APRN-SPECIAL EDUCATION KINDERGARTEN TEACHER Anesthesia Student: Joyce Rivers Specimen(s): * No [...] Martini DDS 10/02/2023 2:29 PM Normal [facility] OP Noteon 10-02-2023 Attic Fans Mechanic Authentication Interface Message Text Surgical Case Number Data Unavailable Operating Room Data Unavailable Preoperative Diagnosis: Caries [K02.9] Autism [ F 84] Preoperative Diagnosis: Caries [K02.9] Autism [ F 84] Postoperative Diagnosis: Autism [ F 84] Procedures: Full mouth X ray [97534] Comprehensive exam [32747] Prophylaxis [76496] Restorations [56234] Postoperative Diagnosis(es): Same @ENCORD@ Surgeon: Dr Tyra DDS [employer] Production Team Member Surgeon: WILLIAMS Corcoran DDS Anesthesia: General- Nasal [...] Martini DDS 10/02/2023 2:34 PM Normal [facility] Progress Noteson 10-02-2023 Attic Fans Mechanic Authentication Interface Message Text ----- Monday, October 02, 2023 at 2:27:57 PM ----- ----- Provider: [id number] Isabel Mary DDS -- Clinic: [facility] ----- [place] notes, RM pt is [...] Note Type: OP Note Status: Cosign Needed Boat Cleaner: Rosas Narayanan DDS (Resident) Cosign Required: Yes Expand All Collapse All Surgical Case Number Data Unavailable Operating Room Data Unavailable Preoperative Diagnosis: Caries [K02.9] Autism [ F 84] Preoperative Diagnosis: Caries [K02.9] Autism [ F 84] Postoperative Diagnosis: Autism [ F 84] Procedures: Full mouth X ray [03162] Comprehensive exam [18427] Prophylaxis [73917] Restorations [81776] Postoperative Diagnosis(es): Same @ENCORD@ Surgeon: Dr Tyra DDS [employer] Production Team Member Surgeon: WILLIAMS Corcoran DDS Anesthesia: General- Nasal [...] Martini DDS 10/02/2023 2:34 PM Normal [facility] Telephone Encounteron 2022 Attic Fans Mechanic Authentication Interface Message Text DD adult dental restorations on 10/02 under [place] at [place]. PSE completed - consents obtained. PSE RN spoke to Miriam from [facility], confirmed NPO, [place] address, and 1100 arrival time Normal [facility] Telephone Encounteron 2022 Attic Fans Mechanic Authentication Interface Message Text Informed Consent for dental surgery AND Anesthesia consent obtained and scanned into [employer]. Scheduled for surgery 10/02/2023. Normal [facility] BASIC METABOLIC PANELon 11-0 Anion gap [Moles/Vol] 13 mmol/L Normal 10-20 [facility] Comment on above: Performed By: #### C H8 ####S PATHOLOGY [id number] [place], [place], Calcium [Mass/Vol] 9.6 mg/dL Normal 8.4-10.4 The [facility] Comment on above: Performed By: #### C H8 ####[facility] PATHOLOGY [id number] [place], [place], Chloride [Moles/Vol] 105 mmol/L Normal 97-111 [facility] Comment on above: Performed By: #### C H8 ####[facility] PATHOLOGY [id number] [place], CO2 [Moles/Vol] 26 mmol/L Normal 21-30 The [facility] Comment on above: Performed By: #### C H8 ####S PATHOLOGY [id number] [place], [place], Creatinine [Mass/Vol] 1.58 mg/dL High 0.80-1.30 The [facility] Comment on above: Performed By: #### C H8 ####[facility] PATHOLOGY [id number] [place], [place], ESTIMATED GFR (CKD-EPI) 59 mL/min/1.73sqm Low >=60 The [facility] Comment on above: Result Comment: 2020 [...] Inclusion of Race in Diagnosing Kidney Disease. Samoan Journal of Kidney Diseases 2021;79(2):268-88.e1. 2. N Engl J Med 1 Vol. 385 Issue 19 Pages 5250-8806 Performed By: #### C H8 ####[facility] PATHOLOGY [id number] [place], [place], Glucose [Mass/Vol] 69 mg/dL Normal 68-110 The [facility] Comment on above: Performed By: #### C H8 ####[facility] PATHOLOGY [id number] [place], Potassium [Moles/Vol] 4.1 mmol/L Normal 3.3-5.3 The [facility] Comment on above: Performed By: #### C H8 ####S PATHOLOGY [id number] [place], Sodium [Moles/Vol] 140 mmol/L Normal 135-148 The [facility] Comment on above: Performed By: #### C H8 ####S PATHOLOGY [id number] [place], Urea nitrogen [Mass/Vol] 18 mg/dL Normal 8-22 [facility] Comment on above: Performed By: #### C H8 ####S PATHOLOGY [id number] [place], [address] Basic metabolic 2000 panelon 09-15-2023 Anion gap [...] Inclusion of Race in Diagnosing Kidney Disease. Samoan Journal of Kidney Diseases 202;79(2):268-88.e1. 2. N Engl J Med 2020 Vol. 385 Issue 19 Pages 7837-8159 Glucose [Mass/Vol] 69 mg/dL 68 - 110 [...] 13.8 g/dL Low 13.9 - 16.3 g/dL [facility] Interpretation and review of laboratory results Abnormal [facility] MCH (RBC) [Entitic mass] 28.7 pg 26.0 - 34.0 pg [facility] MCHC (RBC) [Mass/Vol] 32.9 g/dL 32.0 - 35.9 g/dL [facility] MCV (RBC) [Entitic vol] 87 fL 80 - 100 fL [facility] Platelet mean volume (Bld) [Entitic vol] 8.7 fL 7.5 - 11.2 fL [facility] Platelets (Bld) [#/Vol] 213 10*3/uL 150 - 400 K/uL [facility] RBC (Bld) [#/Vol] 4.80 10*6/uL [facility] WBC (Bld) [#/Vol] 6.3 10*3/uL 4.5 - 11.5 K/uL [facility] COMPLETE BLOOD COUNTon 09-15 Erythrocyte distribution width (RBC) [Ratio] 13.3 % Normal 11.5-14.5 The [facility] Comment on above: Performed By: #### C BC ####S PATHOLOGY [id number] [place], [place], Hematocrit (Bld) [Volume fraction] 41.8 % Normal 41.0-53.0 The [facility] Comment on above: Performed By: #### C BC ####S PATHOLOGY [id number] [place], Hemoglobin (Bld) [Mass/Vol] 13.8 g/dL Low 13.9-16.3 The [facility] Comment on above: Performed By: #### C BC ####S PATHOLOGY [id number] [place], MCH (RBC) [Entitic mass] 28.7 pg Normal 26.0-34.0 The [facility] Comment on above: Performed By: #### C BC ####S PATHOLOGY [id number] [place], MCHC (RBC) [Mass/Vol] 32.9 g/dL Normal 32.0-35.9 The [facility] Comment on above: Performed By: #### C BC ####S PATHOLOGY [id number] [place], MCV (RBC) [Entitic vol] 87 fL Normal 80-100 The [facility] Comment on above: Performed By: #### C BC ####[facility] PATHOLOGY [id number] [place], Platelet mean volume (Bld) [Entitic vol] 8.7 fL Normal 7.5-11.2 The [facility] Comment on above: Performed By: #### C BC ####[facility] PATHOLOGY [id number] [place], Platelets (Bld) [#/Vol] 213 10*3/uL Normal 150-400 The [facility] Comment on above: Performed By: #### C BC ####[facility] PATHOLOGY [id number] [place], RBC (Bld) [#/Vol] 4.80 10*6/uL Normal 4.50-5.90 The [facility] Comment on above: Performed By: #### C BC ####[facility] PATHOLOGY [id number] [place], WBC (Bld) [#/Vol] 6.3 10*3/uL Normal 4.5-11.5 The [facility] Comment on above: Performed By: #### C BC ####[facility] PATHOLOGY [id number] [place], [place], PSE Chartingon 09-15-2023 Attic Fans Mechanic Authentication Interface Message Text Dental Consult The [...] Treatment Dental Treatment in the OR Follow-up [facility] Family Dentistry if needed Note: Legal guardian: Yogesh Li (BROTHER): [phone]. The patient lives in a Facility. A caregiver brushes his teeth twice a day. Ramu Jernigan DDS Normal [facility] Patient Instructionson 09-15 Attic Fans Mechanic Authentication Interface Message Text RECOMMENDATIONS: Patient was instructed on the following: Nothing by mouth after midnight before surgery except following meds with sip of water on AM of surgery: as per anesthesia Stop aspirin 7 days before surgery Stop NSAID 5 days before surgery Stop Vitamin E 10 days prior to surgery Stop alternative/herbal medication 10 days before surgery Normal [facility] Progress Noteson 09-15-2023 Attic Fans Mechanic Authentication Interface Message Text Blood pressure 112/72, [...] [Quetiapine] Latex Allergy: No Surgical Procedure: dental protestant Surgeon: unknown Date of Surgery: 10/02/2023 HISTORY: [...] DENTAL RESTORATIONS; Surgeon: Grabiel Cummings DDS; Location: [facility] [place]; Service: Dental EXTRACTION, TOOTH 02/06/2017 Procedure: EXTRACTION, TOOTH; Surgeon: Noé Drew DDS; Location: PERIOPERATIVE SERVICES; Service: Dental UNLISTED PROCEDURE, DENTOALVEOLAR STRUCTURES 04/29/10 X-RAY EXAM OF TEETH. [id number] 04/29/10 Pertinent Social History Reviewed Social History [...] fever, chills, night sweats, and weight loss FEATHERER: H/o seizures Respiratory: No h/o COPD, asthma dyspnea or recent URI Cardiovascular: No h/o chest pain/VT/CHF/valvular disease/HTN GI: Constipation : H/o urinary retention [...] N (more content not included)... Normal [facility] Attic Fans Mechanic Authentication Interface Message Text Patient was identified by name and date of . Lashon Akin Parsons Normal [facility] Progress Noteson 09-06-2023 Attic Fans Mechanic Authentication Interface Message Text Parent/guardian(Mag gaines @ [employer]) was contacted for PSE AND OR scheduled -- confirmed information with mom, also informed mom importance of receiving PSE call -- if not received surgery will be canceled ----- Wednesday, September 06, 2023 at 11:27:36 AM ----- ----- Provider: Bridget Lombardi Specialist -- Clinic: [place] ----- Normal [facility] Follow Up (Endocrinology)on 03-14-2023 Follow Up (Endocrinology) Diagnoses/Problems Assessed Hypothyroidism (244.9) (E03.9) Low vitamin D level (790.6) (R79.89) Hypocalcemia (275.41) (E83.51) Multinodular goiter (241.1) (E04.2) Orders Hypocalcemia, Hypothyroidism, Low vitamin D level Comprehensive Metabolic Panel; Status:Active; Requested for:14Mar2023; Perform:Lab Services - Lab To Draw (Blood Test); Due:46Zvb0680;Ordered ; For:Hypocalcemia, Hypothyroidism, Low vitamin D level; Ordered By:Erin Ogden; Hemoglobin A1C; Status:Active; Requested for:14Mar2023; Perform:Lab Services - Lab To Draw (Blood Test); Due:92Ztm8488;Ordered ; For:Hypocalcemia, Hypothyroidism, Low vitamin D level; Ordered By:Erin Ogden; Osmolality, Serum; Status:Active; Requested for:14Mar2023; Perform:Lab Services - Lab To Draw (Blood Test); Due:31Awr8518;Ordered ; For:Hypocalcemia, Hypothyroidism, Low vitamin D level; Ordered By:Erin Ogden; Osmolality, Urine Spot; Status:Active; Requested for:14Mar2023; Perform:Lab Services - Lab To Draw (Non-Blood Test); Due:18Tfg3194;Ordered ; For:Hypocalcemia, Hypothyroidism, Low vitamin D level; Ordered By:Erin Ogden; TSH WITH REFLEX TO FREE T4 IF ABNORMAL; Status:Active; Requested for:14Mar2023; Perform:Lab Services - Lab To Draw (Blood Test); Due:90Qob1627;Ordered ; For:Hypocalcemia, Hypothyroidism, Low vitamin D level; Ordered By:Erin Ogden; Vitamin D 25-Hydroxy; Status:Active; Requested for:14Mar2023; Perform:Lab Services - Lab To Draw (Blood Test); Due:46Qnd1795;Ordered ; For:Hypocalcemia, Hypothyroidism, Low vitamin D level; [...] disorder,severe psychosis,GERD, HTN , hypercalcemia likely 2/2 [facility] with exacerbation by lithium intake (that has [...] visit regarding his thyroid. History of Present Enviyib26 yo male with severe mental retardation, autism, bipolar disorder,severe psychosis,GERD, HTN , hypercalcemia [facility] 2/2 [facility] with exacerbation by lithium intake (that has [...] then eats a day after. not on [place] 300 mg , did not changed since last visit as per sheet . guardian is brother Yogesh nb [phone] seeing GI , EGD was fine. no acute issues. is losing weight again , had a lip biopsy and infected ulcer is healed, weight loss has stopped, on Lt4 50 mcgq day and we need recent albs, slightly more agitated , had a fall with bruise on his face , [place] physician is following. no changes in neuro [...] 01-20-2023 Osmolality [Osmolality] 291 mosm/kg Normal 275-295 [facility] Comment on above: Performed By: #### C MP, T4, TSH #### [facility] [address] [place], [place] [address] Dr. Juan Argueta CBC AUTO DIFFon 01-18-2023 BASO # 0.0 103/ul Normal 0.0-0.1 [facility] Comment on above: Performed By: #### C MP, T4, TSH #### [facility] [address] [place] [address] Dr. Juan Argueta Basophils/100 WBC (Bld) 0.6 % Normal 0.2-2.0 [facility] Comment on above: Performed By: #### C MP, T4, TSH #### [facility] [address] [place] [address] Dr. Juan Argueta EO # 0.1 103/ul Normal 0.0-0.7 The [facility] Comment on above: Performed By: #### C MP, T4, TSH #### [facility] [address] [place] [address] Dr. Juan Argueta Eosinophils/100 WBC (Bld) 2.8 % Normal 0.9-7.0 [facility] Comment on above: Performed By: #### C MP, T4, TSH #### [facility] [address] [place] [address] Dr. Juan Argueta Erythrocyte distribution width (RBC) [Ratio] 12.9 % Normal 11.0-15.0 [facility] Comment on above: Performed By: #### C MP, T4, TSH #### [facility] [address] [place] [address] Dr. Juan Argueta Hematocrit (Bld) [Volume fraction] 45.4 % Normal 42.0-54.0 [facility] Comment on above: Performed By: #### C MP, T4, TSH #### [facility] [address] [place] [address] Dr. Juan Argueta Hemoglobin (Bld) [Mass/Vol] 15.4 g/dL Normal 14.0-18.0 [facility] Comment on above: Performed By: #### C MP, T4, TSH #### [facility] [address] [place] [address] Dr. Juan Argueta IG # 0.01 10e3/ul Normal 0.00-0.03 [facility] Comment on above: Performed By: #### C MP, T4, TSH #### [facility] [address] [place] [address] Dr. Juan Argueta IG % 0.2 % Normal 0.0-0.5 The [facility] Comment on above: Performed By: #### C MP, T4, TSH #### [facility] [address] [place] [address] Dr. Juan Argueta LYMPH # 1.3 103/ul Normal 1.2-3.8 The [facility] Comment on above: Performed By: #### C MP, T4, TSH #### [facility] [address] [place] [address] Dr. Juan Argueta Lymphocytes/100 WBC (Bld) 25.1 % Normal 20.5-60.0 The [facility] Comment on above: Performed By: #### C MP, T4, TSH #### [facility] [address] [place] [address] Dr. Juan Argeuta MANUAL DIFF REQ NO Normal [facility] Comment on above: Performed By: #### C MP, T4, TSH #### [facility] [address] [place] [address] Dr. Juan Argueta MCH (RBC) [Entitic mass] 28.3 pg Normal 25.9-34.0 The [facility] Comment on above: Performed By: #### C MP, T4, TSH #### [facility] [address] [place] [address] Dr. Juan Argueta MCHC (RBC) [Mass/Vol] 33.9 g/dL Normal 29.9-35.2 [facility] Comment on above: Performed By: #### C MP, T4, TSH #### [facility] [address] [place] [address] Dr. Juan Argueta MCV (RBC) [Entitic vol] 83.3 fL Normal 80.0-94.0 The [facility] Comment on above: Performed By: #### C MP, T4, TSH #### [facility] [address] [place] [address] Dr. Juan Argueta MONO # 0.3 103/ul Normal 0.3-0.8 The [facility] Comment on above: Performed By: #### C MP, T4, TSH #### [facility] [address] [place] [address] Dr. Juan Argueta Monocytes/100 WBC (Bld) 5.9 % Normal 1.7-12.0 [facility] Comment on above: Performed By: #### C MP, T4, TSH #### [facility] [address] [place] [address] Dr. Juan Argueta NEUT # 3.3 103/ul Normal 1.4-6.5 [facility] Comment on above: Performed By: #### C MP, T4, TSH #### [facility] [address] [place] [address] Dr. Juan Argueta Neutrophils/100 WBC (Bld) 65.4 % Normal 43.0-75.0 [facility] Comment on above: Performed By: #### C MP, T4, TSH #### [facility] [address] [place] [address] Dr. Juan Argueta Platelet mean volume (Bld) [Entitic vol] 9.5 fL Normal 9.5-13.5 [facility] Comment on above: Performed By: #### C MP, T4, TSH #### [facility] [address] [place] [address] Dr. Juan Argueta PLT 244 103/ul Normal 150-450 [facility] Comment on above: Performed By: #### C MP, T4, TSH #### [facility] [address] [place] [address] Dr. Juan Argueta RBC 5.45 106/ul Normal 4.70-6.10 [facility] Comment on above: Performed By: #### C MP, T4, TSH #### [facility] [address] [place] [address] Dr. Juan Argueta WBC 5.1 103/ul Normal 4.0-11.0 [facility] Comment on above: Performed By: #### C MP, T4, TSH #### [facility] [address] [place] [address] Dr. Juan Argueta GLYCOHEMOGLOBIN A1Con 2022 ADA RECOMMENDATION SEE BELOW Normal [facility] Comment on above: Result Comment: ADA RECOMMENDED LIMIT 4.0 - 6.0 ADA THERAPEUTIC TARGET < 7.0 ACTION SUGGESTED > 7.0 Performed By: #### C MP, T4, TSH #### [facility] [address] [place] [address] Dr. Juan Argueta Glucose [Mass/Vol] 100 mg/dL Normal [facility] Comment on above: Performed By: #### C MP, T4, TSH #### [facility] [address] [place] [address] Dr. Juan Argueta HbA1c (Bld) [Mass fraction] 5.1 % Normal 4.5-6.2 [facility] Comment on above: Performed By: #### C MP, T4, TSH #### [facility] [address] [place] [address] Dr. Juan Argueta PROF 14(COMP METB)on 023 Albumin [Mass/Vol] 4.2 g/dL Normal 3.4-5.0 [facility] Comment on above: Performed By: #### C MP, T4, TSH #### [facility] [address] [place] [address] Dr. Juan Argueta Albumin/Globulin [Mass ratio] 1.0 {ratio} Normal [facility] Comment on above: Performed By: #### C MP, T4, TSH #### [facility] [address] [place] [address] Dr. Juan Argueta ALP [Catalytic activity/Vol] 152 U/L Critically high 46-116 [facility] Comment on above: Performed By: #### C MP, T4, TSH #### [facility] [address] [place] [address] Dr. Juan Argueta ALT [Catalytic activity/Vol] 34 U/L Normal 16-63 [facility] Comment on above: Performed By: #### C MP, T4, TSH #### [facility] [address] [place] [address] Dr. Juan Argueta Anion gap [Moles/Vol] 12.0 mmol/L Normal [facility] Comment on above: Performed By: #### C MP, T4, TSH #### [facility] [address] [address] [address] Juan Argueta AST [Catalytic activity/Vol] 31 U/L Normal 15-37 [facility] Comment on above: Performed By: #### C MP, T4, TSH #### [facility] [address] [place] [address] Dr. Juan Argueta Bilirubin [Mass/Vol] 0.2 mg/dL Normal 0.2-1.0 [facility] Comment on above: Performed By: #### C MP, T4, TSH #### [facility] [address] [place] [address] Dr. Juan Argueta Calcium [Mass/Vol] 9.4 mg/dL Normal 8.5-10.1 [facility] Comment on above: Performed By: #### C MP, T4, TSH #### [facility] [address] [place] [address] Dr. Juan Argueta Chloride [Moles/Vol] 104 mmol/L Normal 98-107 [facility] Comment on above: Performed By: #### C MP, T4, TSH #### [facility] [address] [place] [address] Dr. Juan Argueta CO2 [Moles/Vol] 26.5 mmol/L Normal 21.0-32.0 [facility] Comment on above: Performed By: #### C MP, T4, TSH #### [facility] [address] [place] [address] Dr. Juan Argueta Creatinine [Mass/Vol] 1.60 mg/dL Critically high 0.70-1.30 [facility] Comment on above: Performed By: #### C MP, T4, TSH #### [facility] [address] [place] [address] Dr. Juan Argueta EGFR-AF RUSSIAN >60 Normal >=60 [facility] Comment on above: Performed By: #### C MP, T4, TSH #### [facility] [address] [place] [address] Dr. Juan Argueta EGFR-NON AF RUSSIAN 51 mL/min/1.73m2 Critically low >=60 [facility] Comment on above: Performed By: #### C MP, T4, TSH #### [facility] [address] [address] [address] Juan Argueta Globulin (S) [Mass/Vol] 4.1 g/dL Normal [facility] Comment on above: Performed By: #### C MP, T4, TSH #### [facility] [address] [address] [address] Juan Argueta Glucose [Mass/Vol] 95 mg/dL Normal 74-106 [facility] Comment on above: Performed By: #### C MP, T4, TSH #### [facility] [address] [place] [address] Dr. Juan Argueta Potassium [Moles/Vol] 4.5 mmol/L Normal 3.5-5.1 [facility] Comment on above: Performed By: #### C MP, T4, TSH #### [facility] [address] [place] [address] Dr. Juan Argueta Protein [Mass/Vol] 8.3 g/dL Critically high 6.4-8.2 [facility] Comment on above: Performed By: #### C MP, T4, TSH #### [facility] [address] [place] [address] Dr. Juan Argueta Sodium [Moles/Vol] 138 mmol/L Normal 136-145 [facility] Comment on above: Performed By: #### C MP, T4, TSH #### [facility] [address] [place] [address] Dr. Juan Argueta Urea nitrogen [Mass/Vol] 22.0 mg/dL Critically high 7.0-18.0 [facility] Comment on above: Performed By: #### C MP, T4, TSH #### [facility] [address] [place] [address] Dr. Juan Argueta Urea nitrogen/Creatinine [Mass ratio] 13.8 mg/mg [facility] Comment on above: Performed By: #### C MP, T4, TSH #### [facility] [address] [place] [address] Dr. Juan Argueta T4on 01-18-2023 T4 [Mass/Vol] 3.20 ug/dL Critically low 4.50-12.10 [facility] Comment on above: Performed By: #### C MP, T4, TSH #### [facility] [address] [address] [address] Juan Argueta TSHon 01-18-2023 TSH 2.037 uIU/mL Normal 0.358-3.740 [facility] Comment on above: Performed By: #### C MP, T4, TSH #### [facility] [address] [address] [address] Juan Argueta US THYROIDon 01-04-2023 US [...] by: LUIS FERMIN Date: 2023-01-04 15:52 Normal [facility] OSMOLALITYon 10-06-2022 Osmolality [Osmolality] 307 mosm/kg Critically high 275-295 [facility] Comment on above: Performed By: #### C MP, T4, TSH #### [facility] [address] [address] [address] Juan Argueta T3, TOTAL (TRIIODOTHYRONINE) on 10-05-2022 T3, TOTAL 52 ng/dL Critically low 71-180 [facility] Comment on above: Performed By: #### C MP, T4, TSH #### [facility] [address] [address] [address] Juan Argueta GLYCOHEMOGLOBIN A1Con 2021 ADA RECOMMENDATION SEE BELOW Normal [facility] Comment on above: Result Comment: ADA RECOMMENDED LIMIT 4.0 - 6.0 ADA THERAPEUTIC TARGET < 7.0 ACTION SUGGESTED > 7.0 Performed By: #### C MP, T4, TSH #### [facility] [address] [address] [address] Juan Argueta Glucose [Mass/Vol] 105 mg/dL Normal [facility] Comment on above: Performed By: #### C MP, T4, TSH #### [facility] [address] [place] [address] Dr. Juan Argueta HbA1c (Bld) [Mass fraction] 5.3 % Normal 4.5-6.2 [facility] Comment on above: Performed By: #### C MP, T4, TSH #### [facility] [address] [place] [address] Dr. Juan Argueta PROF 14(COMP METB)on 022 Albumin [Mass/Vol] 4.2 g/dL Normal 3.4-5.0 [facility] Comment on above: Performed By: #### T SH, CMP #### [facility] [address] [place] [address] Dr. Juan Argueta Albumin/Globulin [Mass ratio] 1.1 {ratio} Normal [facility] Comment on above: Performed By: #### T SH, CMP #### [facility] [address] [place] [address] Dr. Juan Argueta ALP [Catalytic activity/Vol] 122 U/L Critically high 46-116 [facility] Comment on above: Performed By: #### T SH, CMP #### [facility] [address] [place] [address] Dr. Juan Argueta ALT [Catalytic activity/Vol] 53 U/L Normal 16-63 [facility] Comment on above: Performed By: #### T SH, CMP #### [facility] [address] [place] [address] Dr. Juan Argueta Anion gap [Moles/Vol] 12.4 mmol/L Normal [facility] Comment on above: Performed By: #### T SH, CMP #### [facility] [address] [place] [address] Dr. Juan Argueta AST [Catalytic activity/Vol] 22 U/L Normal 15-37 [facility] Comment on above: Performed By: #### T SH, CMP #### [facility] [address] [place] [address] Dr. Juan Argueta Bilirubin [Mass/Vol] 0.2 mg/dL Normal 0.2-1.0 [facility] Comment on above: Performed By: #### T SH, CMP #### [facility] [address] [address] [address] Juan Argueta Calcium [Mass/Vol] 9.6 mg/dL Normal 8.5-10.1 [facility] Comment on above: Performed By: #### T SH, CMP #### [facility] [address] [address] [address] Juan Argueta Chloride [Moles/Vol] 108 mmol/L Critically high 98-107 [facility] Comment on above: Performed By: #### T SH, CMP #### [facility] [address] [place] [address] Dr. Juan Argueta CO2 [Moles/Vol] 28.8 mmol/L Normal 21.0-32.0 [facility] Comment on above: Performed By: #### T SH, CMP #### [facility] [address] [address] [address] Juan Argueta Creatinine [Mass/Vol] 1.77 mg/dL Critically high 0.70-1.30 [facility] Comment on above: Performed By: #### T SH, CMP #### [facility] [address] [place] [address] Dr. Juan Argueta EGFR-AF RUSSIAN 55 mL/min/1.73m2 Critically low >=60 [facility] Comment on above: Performed By: #### T SH, CMP #### [facility] [address] [address] [address] Juan Argueta EGFR-NON AF RUSSIAN 45 mL/min/1.73m2 Critically low >=60 [facility] Comment on above: Performed By: #### T SH, CMP #### [facility] [address] [address] [address] Juan Argueta Globulin (S) [Mass/Vol] 3.7 g/dL Normal [facility] Comment on above: Performed By: #### T SH, CMP #### [facility] [address] [address] [address] Juan Argueta Glucose [Mass/Vol] 94 mg/dL Normal 74-106 [facility] Comment on above: Performed By: #### T SH, CMP #### [facility] [address] [address] [address] Juan Argueta Potassium [Moles/Vol] 4.2 mmol/L Normal 3.5-5.1 [facility] Comment on above: Performed By: #### T SH, CMP #### [facility] [address] [place] [address] Dr. Juan Argueta Protein [Mass/Vol] 7.9 g/dL Normal 6.4-8.2 [facility] Comment on above: Performed By: #### T SH, CMP #### [facility] [address] [place] [address] Dr. Juan Argueta Sodium [Moles/Vol] 145 mmol/L Normal 136-145 [facility] Comment on above: Performed By: #### T SH, CMP #### [facility] [address] [place] [address] Dr. Juan Argueta Urea nitrogen [Mass/Vol] 28.0 mg/dL Critically high 7.0-18.0 [facility] Comment on above: Performed By: #### T SH, CMP #### [facility] [address] [place] [address] Dr. Juan Argueta Urea nitrogen/Creatinine [Mass ratio] 15.8 mg/mg Normal [facility] Comment on above: Performed By: #### T SH, CMP #### [facility] [address] [place] [address] Dr. Juan Argueta TSHon 10-04-2022 TSH 1.456 uIU/mL Normal 0.358-3.740 [facility] Comment on above: Performed By: #### T SH, CMP #### [facility] [address] [place] [address] Dr. Juan Argueta VITAMIN D 25 OHon 10-04-2022 VIT D 25-OH 51.1 ng/mL Normal [facility] Comment on above: Performed By: #### C MP, T4, TSH #### [facility] [address] [place], [place] [address] Dr. Juan Argueta VIT D RANGES SEE BELOW [facility] Comment on above: Result Comment: <20 ng/mL Vit D deficient 20 - <30 ng/mL Vit D insufficient 30 - 100 ng/mL Vit D sufficient >100 ng/mL Potential Toxicity Performed By: #### C MP, T4, TSH #### [facility] [address] [place], [place] [address] Dr. Juan Argueta Follow Up (Endocrinology)on 09-30-2022 Follow Up (Endocrinology) Diagnoses/Problems Assessed Low vitamin D level (790.6) (R79.89) Hypothyroidism (244.9) (E03.9) Hypocalcemia (275.41) (E83.51) Multinodular goiter (241.1) (E04.2) Orders Hypocalcemia, Hypothyroidism, Low vitamin D level, Multinodular goiter Comprehensive Metabolic Panel; Status:Active; Requested for:30Sep2022; Perform:Lab Services - Lab To Draw (Blood Test); Due:[id number];Ordered ; For:Hypocalcemia, Hypothyroidism, Low vitamin D level, Multinodular goiter; Ordered By:Erin Ogden; Hemoglobin A1C; Status:Active; Requested for:30Sep2022; Perform:Lab Services - Lab To Draw (Blood Test); Due:[id number];Ordered ; For:Hypocalcemia, Hypothyroidism, Low vitamin D level, Multinodular goiter; Ordered By:Erin Ogden; Osmolality, Serum; Status:Active; Requested for:30Sep2022; Perform:Lab Services - Lab To Draw (Blood Test); Due:[id number];Ordered ; For:Hypocalcemia, Hypothyroidism, Low vitamin D level, Multinodular goiter; Ordered By:Erin Ogden; Osmolality, Urine Spot; Status:Active; Requested for:30Sep2022; Perform:Lab Services - Lab To Draw (Non-Blood Test); Due:[id number];Ordered ; For:Hypocalcemia, Hypothyroidism, Low vitamin D level, Multinodular goiter; Ordered By:Erin Ogden; TSH WITH REFLEX TO FREE T4 IF ABNORMAL; Status:Active; Requested for:30Sep2022; Perform:Lab Services - Lab To Draw (Blood Test); Due:[id number];Ordered ; For:Hypocalcemia, Hypothyroidism, Low vitamin D level, Multinodular goiter; Ordered By:Erin Ogden; Ultrasound Thyroid; Status:Hold For - Scheduling; Requested for:30Sep2022; Perform: Radiology Services Imaging; Due:[id number];Ordered ; For:Hypocalcemia, Hypothyroidism, Low vitamin D level, Multinodular goiter; Ordered By:Erin Ogden; Radiologist to Determine Optimal Study : Y What are the patient's signs and symptoms? : f/u Vitamin D 25-Hydroxy; Status:Active; Requested for:30Sep2022; Perform:Lab Services - Lab To Draw (Blood Test); Due:[id number];Ordered ; For:Hypocalcemia, Hypothyroidism, Low vitamin D level, [...] low vitamin d levels. History of Present Mrilmeu56 yo male with severe mental retardation, autism, bipolar disorder,severe psychosis,GERD, HTN , hypercalcemia [facility] 2/2 [facility] with exacerbation by lithium intake (that has [...] then eats a day after. not on [place] 300 mg , did not changed since last visit as per sheet . guardian is brother Yogesh nb [phone] seeing GI , EGD was fine. no acute issues. is losing weight again , had a lip biopsy and infected ulcer is healed, weight loss has stopped, on Lt4 50 mcgq day and we need recent albs, slightly more agitated , had a fall with bruise on his face , [place] physician is following. no changes in neuro [...] 09-20-2022 BASO # 0.1 103/ul Normal 0.0-0.1 [facility] Comment on above: Performed By: #### C MP, T4, TSH #### [facility] [address] [place], [place] [address] Dr. Juan Argueta Basophils/100 WBC (Bld) 1.2 % Normal 0.2-2.0 [facility] Comment on above: Performed By: #### C MP, T4, TSH #### [facility] [address] [place] [address] Dr. Juan Argueta EO # 0.2 103/ul Normal 0.0-0.7 [facility] Comment on above: Performed By: #### C MP, T4, TSH #### [facility] [address] [place] [address] Dr. Juan Argueta Eosinophils/100 WBC (Bld) 5.0 % Normal 0.9-7.0 [facility] Comment on above: Performed By: #### C MP, T4, TSH #### [facility] [address] [place] [address] Dr. Juan Argueta Erythrocyte distribution width (RBC) [Ratio] 12.8 % Normal 11.0-15.0 [facility] Comment on above: Performed By: #### C MP, T4, TSH #### [facility] [address] [place] [address] Dr. Juan Argueta Hematocrit (Bld) [Volume fraction] 42.0 % Normal 42.0-54.0 [facility] Comment on above: Performed By: #### C MP, T4, TSH #### [facility] [address] [place] [address] Dr. Juan Argueta Hemoglobin (Bld) [Mass/Vol] 14.0 g/dL Normal 14.0-18.0 [facility] Comment on above: Performed By: #### C MP, T4, TSH #### [facility] [address] [place] [address] Dr. Juan Argueta IG # 0.01 10e3/ul Normal 0.00-0.03 [facility] Comment on above: Performed By: #### C MP, T4, TSH #### [facility] [address] [place] [address] Dr. Juan Argueta IG % 0.2 % Normal 0.0-0.5 [facility] Comment on above: Performed By: #### C MP, T4, TSH #### [facility] [address] [place] [address] Dr. Juan Argueta LYMPH # 1.5 103/ul Normal 1.2-3.8 [facility] Comment on above: Performed By: #### C MP, T4, TSH #### [facility] [address] [place] [address] Dr. Juan Argueta Lymphocytes/100 WBC (Bld) 34.9 % Normal 20.5-60.0 [facility] Comment on above: Performed By: #### C MP, T4, TSH #### [facility] [address] [place] [address] Dr. Juan Argueta MANUAL DIFF REQ NO Normal [facility] Comment on above: Performed By: #### C MP, T4, TSH #### [facility] [address] [place] [address] Dr. Juan Argueta MCH (RBC) [Entitic mass] 29.0 pg Normal 25.9-34.0 [facility] Comment on above: Performed By: #### C MP, T4, TSH #### [facility] [address] [place] [address] Dr. Juan Argueta MCHC (RBC) [Mass/Vol] 33.3 g/dL Normal 29.9-35.2 [facility] Comment on above: Performed By: #### C MP, T4, TSH #### [facility] [address] [place] [address] Dr. Juan Argueta MCV (RBC) [Entitic vol] 87.0 fL Normal 80.0-94.0 [facility] Comment on above: Performed By: #### C MP, T4, TSH #### [facility] [address] [place] [address] Dr. Juan Argueta MONO # 0.3 103/ul Normal 0.3-0.8 [facility] Comment on above: Performed By: #### C MP, T4, TSH #### [facility] [address] [place] [address] Dr. Juan Argueta Monocytes/100 WBC (Bld) 6.8 % Normal 1.7-12.0 [facility] Comment on above: Performed By: #### C MP, T4, TSH #### [facility] [address] [place] [address] Dr. Juan Argueta NEUT # 2.2 103/ul Normal 1.4-6.5 [facility] Comment on above: Performed By: #### C MP, T4, TSH #### [facility] [address] [place] [address] Dr. Juan Argueta Neutrophils/100 WBC (Bld) 51.9 % Normal 43.0-75.0 [facility] Comment on above: Performed By: #### C MP, T4, TSH #### [facility] [address] [place] [address] Dr. Juan Argueta Platelet mean volume (Bld) [Entitic vol] 10.1 fL Normal 9.5-13.5 [facility] Comment on above: Performed By: #### C MP, T4, TSH #### [facility] [address] [place] [address] Dr. Juan Argueta PLT 252 103/ul Normal 150-450 [facility] Comment on above: Performed By: #### C MP, T4, TSH #### [facility] [address] [place] [address] Dr. Juan Argueta RBC 4.83 106/ul Normal 4.70-6.10 [facility] Comment on above: Performed By: #### C MP, T4, TSH #### [facility] [address] [place] [address] Dr. Juan Argueta WBC 4.2 103/ul Normal 4.0-11.0 [facility] Comment on above: Performed By: #### C MP, T4, TSH #### [facility] [address] [place] [address] Dr. Juan Argueta FREE T4on 09-20-2022 Free T4 [Mass/Vol] 0.50 ng/dL Critically low 0.76-1.46 [facility] Comment on above: Performed By: #### B 12FOL, FT4 #### [facility] [address] [place] [address] Dr. Juan Argueta PROF 14(COMP METB)on 022 Albumin [Mass/Vol] 4.1 g/dL Normal 3.4-5.0 [facility] Comment on above: Performed By: #### C MP, T4, TSH #### [facility] [address] [address] [address] Juan Argueta Albumin/Globulin [Mass ratio] 1.1 {ratio} Normal [facility] Comment on above: Performed By: #### C MP, T4, TSH #### [facility] [address] [address] [address] Juan Argueta ALP [Catalytic activity/Vol] 107 U/L Normal 46-116 [facility] Comment on above: Performed By: #### C MP, T4, TSH #### [facility] [address] [place] [address] Dr. Juan Argueta ALT [Catalytic activity/Vol] 79 U/L Critically high 16-63 [facility] Comment on above: Performed By: #### C MP, T4, TSH #### [facility] [address] [address] [address] Juan Argueta Anion gap [Moles/Vol] 8.4 mmol/L Normal [facility] Comment on above: Performed By: #### C MP, T4, TSH #### [facility] [address] [place] [address] Dr. Juan Argueta AST [Catalytic activity/Vol] 32 U/L Normal 15-37 [facility] Comment on above: Performed By: #### C MP, T4, TSH #### [facility] [address] [address] [address] Juan Argueta Bilirubin [Mass/Vol] 0.2 mg/dL Normal 0.2-1.0 [facility] Comment on above: Performed By: #### C MP, T4, TSH #### [facility] [address] [place] [address] Dr. Juan Argueta Calcium [Mass/Vol] 9.2 mg/dL Normal 8.5-10.1 [facility] Comment on above: Performed By: #### C MP, T4, TSH #### [facility] [address] [place] [address] Dr. Juan Argueta Chloride [Moles/Vol] 104 mmol/L Normal 98-107 [facility] Comment on above: Performed By: #### C MP, T4, TSH #### [facility] [address] [place] [address] Dr. Juan Argueta CO2 [Moles/Vol] 30.2 mmol/L Normal 21.0-32.0 [facility] Comment on above: Performed By: #### C MP, T4, TSH #### [facility] [address] [place] [address] Dr. Juan Argueta Creatinine [Mass/Vol] 1.67 mg/dL Critically high 0.70-1.30 [facility] Comment on above: Performed By: #### C MP, T4, TSH #### [facility] [address] [place] [address] Dr. Juan Argueta EGFR-AF RUSSIAN 58 mL/min/1.73m2 Critically low >=60 [facility] Comment on above: Performed By: #### C MP, T4, TSH #### [facility] [address] [place] [address] Dr. Juan Argueta EGFR-NON AF RUSSIAN 48 mL/min/1.73m2 Critically low >=60 [facility] Comment on above: Performed By: #### C MP, T4, TSH #### [facility] [address] [place] [address] Dr. Juan Argueta Globulin (S) [Mass/Vol] 3.6 g/dL Normal [facility] Comment on above: Performed By: #### C MP, T4, TSH #### [facility] [address] [place] [address] Dr. Juan Argueta Glucose [Mass/Vol] 94 mg/dL Normal 74-106 [facility] Comment on above: Performed By: #### C MP, T4, TSH #### [facility] [address] [place] [address] Dr. Juan Argueta Potassium [Moles/Vol] 4.6 mmol/L Normal 3.5-5.1 [facility] Comment on above: Performed By: #### C MP, T4, TSH #### [facility] [address] [place] [address] Dr. Juan Argueta Protein [Mass/Vol] 7.7 g/dL Normal 6.4-8.2 [facility] Comment on above: Performed By: #### C MP, T4, TSH #### [facility] [address] [place] [address] Dr. Juan Argueta Sodium [Moles/Vol] 138 mmol/L Normal 136-145 [facility] Comment on above: Performed By: #### C MP, T4, TSH #### [facility] [address] [place] [address] Dr. Juan Argueta Urea nitrogen [Mass/Vol] 28.0 mg/dL Critically high 7.0-18.0 [facility] Comment on above: Performed By: #### C MP, T4, TSH #### [facility] [address] [place] [address] Dr. Juan Argueta Urea nitrogen/Creatinine [Mass ratio] 16.8 mg/mg Normal [facility] Comment on above: Performed By: #### C MP, T4, TSH #### [facility] [address] [place] [address] Dr. Juan Argueta TSHon 09-20-2022 TSH 1.895 uIU/mL Normal 0.358-3.740 [facility] Comment on above: Performed By: #### C MP, T4, TSH #### [facility] [address] [place] [address] Dr. Juan Argueta VIT B12 AND FOLATEon 022 Cobalamin (Vitamin B12) [Mass/Vol] 350.0 pg/mL Normal 193.0-986.0 [facility] Comment on above: Performed By: #### B 12FOL, FT4 #### [facility] [address] [place] [address] Dr. Juan Argueta FOLATE 16.40 ng/mL Normal 8.60-58.90 [facility] Comment on above: Performed By: #### B 12FOL, FT4 #### [facility] [address] [place] [address] Dr. Juan Argueta VITAMIN D 25 OHon 09-20-2022 VIT D 25-OH 49.9 ng/mL Normal [facility] Comment on above: Performed By: #### V ITAD #### [facility] [address] [place] [address] Dr. Juan Argueta VIT D RANGES SEE BELOW Normal [facility] Comment on above: Result Comment: <20 ng/mL Vit D deficient 20 - <30 ng/mL Vit D insufficient 30 - 100 ng/mL Vit D sufficient >100 ng/mL Potential Toxicity Performed By: #### V ITAD #### [facility] [address] [place] [address] Dr. Juan Argueta CBC AUTO DIFFon 09-10-2022 BASO # 0.0 103/ul Normal 0.0-0.1 [facility] Comment on above: Performed By: #### C BC #### [facility] [address] [place] [address] Dr. Juan Argueta Basophils/100 WBC (Bld) 0.3 % Normal 0.2-2.0 [facility] Comment on above: Performed By: #### C BC #### [facility] [address] [place] [address] Dr. Juan Argueta EO # 0.1 103/ul Normal 0.0-0.7 [facility] Comment on above: Performed By: #### C BC #### [facility] [address] [place] [address] Dr. Juan Argueta Eosinophils/100 WBC (Bld) 1.5 % Normal 0.9-7.0 [facility] Comment on above: Performed By: #### C BC #### [facility] [address] [place] [address] Dr. Juan Argueta Erythrocyte distribution width (RBC) [Ratio] 12.8 % Normal 11.0-15.0 [facility] Comment on above: Performed By: #### C BC #### [facility] [address] [place] [address] Dr. Juan Argueta Hematocrit (Bld) [Volume fraction] 38.6 % Critically low 42.0-54.0 [facility] Comment on above: Performed By: #### C BC #### [facility] [address] [address] [address] Juan Argueta Hemoglobin (Bld) [Mass/Vol] 13.2 g/dL Critically low 14.0-18.0 [facility] Comment on above: Performed By: #### C BC #### [facility] [address] [address] [address] Juan Argueta IG # 0.02 10e3/ul Normal 0.00-0.03 [facility] Comment on above: Performed By: #### C BC #### [facility] [address] [place] [address] Dr. Juan Argueta IG % 0.2 % Normal 0.0-0.5 [facility] Comment on above: Performed By: #### C BC #### [facility] [address] [place] [address] Dr. Juan Argueta LYMPH # 0.9 103/ul Critically low 1.2-3.8 [facility] Comment on above: Performed By: #### C BC #### [facility] [address] [place] [address] Dr. Juan Argueta Lymphocytes/100 WBC (Bld) 10.0 % Critically low 20.5-60.0 [facility] Comment on above: Performed By: #### C BC #### [facility] [address] [place] [address] Dr. Juan Argueta MANUAL DIFF REQ NO Normal [facility] Comment on above: Performed By: #### C BC #### [facility] [address] [place] [address] Dr. Juan Argueta MCH (RBC) [Entitic mass] 29.2 pg Normal 25.9-34.0 [facility] Comment on above: Performed By: #### C BC #### [facility] [address] [place] [address] Dr. Juan Argueta MCHC (RBC) [Mass/Vol] 34.2 g/dL Normal 29.9-35.2 [facility] Comment on above: Performed By: #### C BC #### [facility] [address] [address] [address] Juan Argueta MCV (RBC) [Entitic vol] 85.4 fL Normal 80.0-94.0 [facility] Comment on above: Performed By: #### C BC #### [facility] [address] [address] [address] Juan Argueta MONO # 0.5 103/ul Normal 0.3-0.8 [facility] Comment on above: Performed By: #### C BC #### [facility] [address] [address] [address] Juan Argueta Monocytes/100 WBC (Bld) 5.3 % Normal 1.7-12.0 [facility] Comment on above: Performed By: #### C BC #### [facility] [address] [address] [address] Juan Argueta NEUT # 7.4 103/ul Critically high 1.4-6.5 [facility] Comment on above: Performed By: #### C BC #### [facility] [address] [address] [address] Juan Argueta Neutrophils/100 WBC (Bld) 82.7 % Critically high 43.0-75.0 [facility] Comment on above: Performed By: #### C BC #### [facility] [address] [address] [address] Juan Argueta Platelet mean volume (Bld) [Entitic vol] 9.8 fL Normal 9.5-13.5 [facility] Comment on above: Performed By: #### C BC #### [facility] [address] [address] [address] Juan Argueta PLT 226 103/ul Normal 150-450 [facility] Comment on above: Performed By: #### C BC #### [facility] [address] [address] [address] Juan Argueta RBC 4.52 106/ul Critically low 4.70-6.10 [facility] Comment on above: Performed By: #### C BC #### [facility] [address] [place] [address] Dr. Juan Argueta WBC 8.9 103/ul Normal 4.0-11.0 [facility] Comment on above: Performed By: #### C BC #### [facility] [address] [place] [address] HEAD WO CONon [...] JON PARKS Date: 2022-09-10 12:09 Normal [facility] PROF 14(COMP METB)on 022 Albumin [Mass/Vol] 4.1 g/dL Normal 3.4-5.0 [facility] Comment on above: Performed By: #### C MP #### [facility] [address] [place] [address] Dr. Juan Argueta Albumin/Globulin [Mass ratio] 1.2 {ratio} Normal [facility] Comment on above: Performed By: #### C MP #### [facility] [address] [place] [address] Dr. Juan Argueta ALP [Catalytic activity/Vol] 100 U/L Normal 46-116 [facility] Comment on above: Performed By: #### C MP #### [facility] [address] [place] [address] Dr. Juan Argueta ALT [Catalytic activity/Vol] 39 U/L Normal 16-63 [facility] Comment on above: Performed By: #### C MP #### [facility] [address] [address] [address] Juan Argueta Anion gap [Moles/Vol] 16.5 mmol/L Normal [facility] Comment on above: Performed By: #### C MP #### [facility] [address] [address] [address] Juan Argutea AST [Catalytic activity/Vol] 35 U/L Normal 15-37 [facility] Comment on above: Performed By: #### C MP #### [facility] [address] [address] [address] Juan Argueta Bilirubin [Mass/Vol] 0.3 mg/dL Normal 0.2-1.0 [facility] Comment on above: Performed By: #### C MP #### [facility] [address] [address] [address] Juan Argueta Calcium [Mass/Vol] 8.2 mg/dL Critically low 8.5-10.1 [facility] Comment on above: Performed By: #### C MP #### [facility] [address] [address] [address] Juan Argueta Chloride [Moles/Vol] 101 mmol/L Normal 98-107 [facility] Comment on above: Performed By: #### C MP #### [facility] [address] [address] [address] Juan Argueta CO2 [Moles/Vol] 18.8 mmol/L Critically low 21.0-32.0 [facility] Comment on above: Performed By: #### C MP #### [facility] [address] [address] [address] Juan Argueta Creatinine [Mass/Vol] 1.37 mg/dL Critically high 0.70-1.30 [facility] Comment on above: Performed By: #### C MP #### [facility] [address] [address] [address] Juan Argueta EGFR-AF RUSSIAN >60 Normal >=60 [facility] Comment on above: Performed By: #### C MP #### [facility] [address] [place] [address] Dr. Juan Argueta EGFR-NON AF RUSSIAN >60 Normal >=60 [facility] Comment on above: Performed By: #### C MP #### [facility] [address] [address] [address] Juan Argueta Globulin (S) [Mass/Vol] 3.3 g/dL Normal [facility] Comment on above: Performed By: #### C MP #### [facility] [address] [address] [address] Juan Argueta Glucose [Mass/Vol] 103 mg/dL Normal 74-106 [facility] Comment on above: Performed By: #### C MP #### [facility] [address] [place] [address] Dr. Juan Argueta Potassium [Moles/Vol] 4.3 mmol/L Normal 3.5-5.1 [facility] Comment on above: Performed By: #### C MP #### [facility] [address] [place] [address] Dr. Juan Argueta Protein [Mass/Vol] 7.4 g/dL Normal 6.4-8.2 [facility] Comment on above: Performed By: #### C MP #### [facility] [address] [place] [address] Dr. Juan Argueta Sodium [Moles/Vol] 132 mmol/L Critically low 136-145 [facility] Comment on above: Performed By: #### C MP #### [facility] [address] [place] [address] Dr. Juan Argueta Urea nitrogen [Mass/Vol] 23.0 mg/dL Critically high 7.0-18.0 [facility] Comment on above: Performed By: #### C MP #### [facility] [address] [place] [address] Dr. Juan Argueta Urea nitrogen/Creatinine [Mass ratio] 16.8 mg/mg Normal [facility] Comment on above: Performed By: #### C MP #### [facility] [address] [place] [address] HEAD WO CONon [...] by: RISA PENNY Date: 2022-07-19 10:21 Normal [facility] Follow Up (Endocrinology)on 03-25-2022 Follow Up [...] Services - Lab To Draw (Blood Test); Due:[id number];Ordered ; For: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, Hypocalcemia, [...] visit hypothyrpidism and hypercalcemia History of Present [age]woims89 yo male with severe mental retardation, autism, bipolar disorder,severe psychosis,GERD, HTN , hypercalcemia [facility] 12/15 [facility] with exacerbation by lithium intake (that has [...] then eats a day after. not on [place] 300 mg , did not changed since last visit as per sheet . guardian is brother Yogesh nb [phone] seeing GI , EGD was fine. no acute issues. is losing weight again , had a lip biopsy and infected ulcer is healed, weight loss has stopped, on Lt4 50 mcgq day and we need recent albs, slightly more agitated , had a fall with bruise on his face , [place] physician is following. no changes in neuro exam. TSH was normal on labs , , calcium and sodium normal, no acute issues (more content not included)... Normal [employer] XR MODIFIED BARIUM SWALLOWon 09-11-2020 No radiographic evidence of tracheal aspiration. For further information as well as dietary recommendations, please refer to the speech pathologist's detailed report. Mover Workstation ID: [id number] [facility] EXAMINATION: XR MODIFIED BARIUM SWALLOW HISTORY: [...] no evidence of penetration or tracheal aspiration. [facility] Interface, Rad In [employer] Speechq - 09/11/2020 10:03 PM EDT EXAMINATION: [...] refer to the speech pathologist's detailed report. [employer] Workstation ID: [id number] [facility] XR MODIFIED BARIUM SWALLOW EXAMINATION: XR [...] refer to the speech pathologist's detailed report. Mover Workstation ID: [id number] Dictated by: BRANDAN CERVANTES on MonSep 11, 2020 2:10:21 PM EDT Transcribed by: BONIFACIO IBARRA on MonSep 11, 2020 2:53:24 PM EDT Finalized by: BRANDAN CERVANTES on MonSep 11, 2020 10:00:27 PM EDT [facility] Comment on above: Order Comment: Miriam hung Injury/Trauma or Illness?:Illness/Other How long have you had these symptoms (acute/chronic)?:Chronic Reason for exam?:Pharyngeal dysphagia Type of Exam?:Ongoing Additional signs and symptoms?:Pharyngeal dysphagia Fluoro time in minutes:1.05 Fluoro dose in mGy?:36.08 COVID-19, MOLECULARon 2019 SARS-COV-2 (CEPHEID) Not Detected Normal Not Detected [facility] Comment on above: Result Comment: This test was performed under the FDA's Emergency Use Authorization (EUA). Testing was performed using the Xpert Xpress SARS-CoV-2 Cepheid assay on the [employer] Dx platform. This test has not been approved for use in asymptomatic patients and its performance in this patient population has not been evaluated. Negative results do not rule out the presence of SARS-CoV-2/COVID-19. Fact sheets for this EUA can be found at the following links: For Healthcare Providers: https://www.fda.gov/media/289826/download For Patients: https://www.fda.gov/media/320392/download Performed By: #### L [id number] #### [facility] [address] [place] [address] Rustam Morillo M.D. [id number] CT ABDOMEN PELVIS W IV CONTR Vicky [...] Grabiel Aleman MD 08/09/19 Final result Normal [facility] Surgical Pathologyon 10-17-2 018 Surgical Pathology (NOTE) [id number] [place] [address] SURGICAL PATHOLOGY REPORT Patient Name: MARKEL LI MR#: [id number] Specimen #[id number] Final Diagnosis SPECIMEN A : SMALL BOWEL, [...] loss; EGD biopsy; colonoscopy, hemorrhoids; formalin time: G=6382, D=3823 Source: A: Small bowel biopsies B: Gastric [...] examination confirms the final pathologic diagnosis. Normal [facility] Comment on above: Performed By: #### P PPES #### [facility] [address] [place] [address] Vital Signs Date Time Vital Sign Value Performing Clinician Faci lity 11-15-2023 10:44-0500 Body height 182.9 cm Bree Whiting MD Work Phone: [facility] 11-15-2023 10:44-0500 Body mass index (BMI) [Ratio] 27.67 kg/m2 Bree Whiting MD Work Phone: [facility] 11-15-2023 10:44-0500 Body weight 92.53 kg Bree Whiting MD Work Phone: [facility] 10-02-2023 15:17-0500 Body temperature 96.8 [degF] Tyrese Alexander DDS Work Phone: [facility] 10-02-2023 15:17-0500 Diastolic blood pressure 91 mm[Hg] Tyrese Alexander DDS Work Phone: [facility] 10-02-2023 15:17-0500 Heart rate 58 /min Tyrese Alexander DDS Work Phone: [facility] 10-02-2023 15:17-0500 Respiratory rate 22 /min Tyrese Alexander DDS Work Phone: [facility] 10-02-2023 15:17-0500 SaO2% (BldA) [Mass fraction] 100 % Tyrese Alexander DDS Work Phone: [facility] 10-02-2023 15:17-0500 Systolic blood pressure 141 mm[Hg] Tyrese Alexander DDS Work Phone: [facility] 10-02-2023 11:35-0500 Body height 177.8 cm Tyrese Alexander DDS Work Phone: [facility] 10-02-2023 11:35-0500 Body mass index (BMI) [Ratio] 29.27 kg/m2 Tyrese Alexander DDS Work Phone: [facility] 10-02-2023 11:35-0500 Body weight 92.53 kg Tyrese Alexander DDS Work Phone: [facility] 09-15-2023 15:07-0400 Body height 179 cm Bola Claire MD Work Phone: [facility] 09-15-2023 15:07-0400 Body mass index (BMI) [Ratio] 28.97 kg/m2 Bola Claire MD Work Phone: [facility] 09-15-2023 15:07-0400 Body temperature 97.7 [degF] Bola Claire MD Work Phone: [facility] 09-15-2023 15:07-0400 Body weight 92.81 kg Bola Claire MD Work Phone: [facility] 09-15-2023 15:07-0400 Diastolic blood pressure 72 mm[Hg] B[facility] MD [facility] 09-15-2023 15:07-0400 Heart rate 58 /min Bola Claire MD [facility] 09-15-2023 15:07-0400 Respiratory rate 32 /min Bola Claire MD [facility] 09-15-2023 15:07-0400 SaO2% (BldA) [Mass fraction] 99 % [facility] Claire [facility] 09-15-2023 15:07-0400 Systolic blood pressure 112 mm[Hg] Bola Claire MD [facility] 03-20-2019 12:52-0400 BMI (Body Mass Index) 22.24 kg/m2 Erin Harveyhi ZD-Jvhlatekfibxu-DIY [place] [address] Work Phone: 03-20-2019 12:52-0400 Body weight 74.39 kg Erin Pan SM-Zxwpcnyfbvics-YQG [place] [address] Work Phone: 03-20-2019 12:52-0400 BP Diastolic 72 mm[Hg] Erin Harveyhi OL-Rubnrffhykcox-VWZ [place] [address] Work Phone: 03-20-2019 12:52-0400 BP Systolic 103 mm[Hg] Erin Harveyhi LR-Sqhunsemlaccq-QPI [place] [address] Work Phone: 03-20-2019 12:52-0400 BSA (Body Surface Area) 1.96 m2 Erin Harveyhi PM-Zyybuwioafovl-OLY [place] [address] Work Phone: 03-20-2019 12:52-0400 Height 182.88 cm Erin Pan CC-Oratjcekyvogr-UEF [place] [address] Work Phone: 03-20-2019 12:52-0400 Pulse (Heart Rate) 62 /min Erin Harveyhi XD-Jkimoalxzjlsk-KRD [place] [address] Work Phone: 03-20-2019 12:52-0400 Pulse Oximetry 100 % Erin Davenportollaelizabeth VF-Ihbsuxjwrngbs-VER [place] [address] Work Phone: 03-20-2019 12:52-0400 Respiratory Rate 14 /min Erin Davenportollaelizabeth OF-Dlaibetrmrmvs-PKO [place] [address] Work Phone: Encounters Encounter Date Encounter Type Care Provider Facility Start: 05-15-2024 End: 05-15-2024 ambulatory [facility] Ambulatory Start: 12-15-2023 End: 12-16-2023 ambulatory [facility] Facility[facility] Start: 11-15-2023 End: 11-15-2023 ambulatory [facility] Start: 11-15-2023 End: 11-15-2023 Office outpatient visit 25 minutes Bree Whiting MD Work Phone: [facility] Comment on above: Hypercalcemia (Prima ry Dx); Hypothyroidism, unspecified type Start: 10-02-2023 End: 10-02-2023 ambulatory TYRESE ALEXANDER Facility:[facility] Start: 10-02-2023 End: 10-02-2023 Subsequent hospital visit by physician Tyrese Alexander DDS Work Phone: [facility] Ambulatory Surgery Start: 10-02-2023 End: 10-03-2023 ambulatory UNKNOWN PROVIDER Facility:[facility] Start: 10-02-2023 End: 10-03-2023 Patient encounter procedure Tyrese Alexander DDS Work Phone: [facility] Start: 09-27-2023 Telephone encounter Cheri mercado RN [facility] Pre Surgical Evaluation Start: 09-19-2023 Telephone encounter Lina rubin RN [facility] Pre [facility] Evaluation Comment on above: Pre-surgical Evaluat ion (Informed Consent & Anesthesia consent obtained) Start: 09-15-2023 Encounter for other preprocedural examination UNKNOWN PROVIDER [facility] Start: 09-15-2023 End: 09-15-2023 ambulatory UNKNOWN PROVIDER Facility:[facility] Start: 09-15-2023 End: 09-15-2023 Patient encounter procedure Pse Anesthesia [facility] Pre [facility] Comment on above: Pre-op evaluation (P rimary Dx) Start: 09-15-2023 Admission to [facility] Ramu Singh Marciomaru DDS Work Phone: [facility] Start: 09-15-2023 End: 09-15-2023 Office outpatient visit 25 minutes Bola Claire MD Work Phone: [facility] Comment on above: Pre-op exam (Primary Dx); Body mass index (BMI) 28.0-28.9, adult Start: 09-15-2023 End: 09-15-2023 Preprocedural examination done Bola Claire MD Work Phone: [facility] Work Phone: Start: 08-18-2023 Admission to [facility] Carline Mcfarland DDS Work Phone: [facility] Start: 03-14-2023 ambulatory Erin Pan Facility:[id number] Start: 01-18-2023 End: 01-19-[address] RALEIGH EPPS Facility:[facility] Start: 01-04-2023 End: 01-05-[address] RALEIGH EPPS Facility:[facility] Start: 10-04-2022 End: 10-05-[address] DOCTOR MULLER Facility:[facility] Start: 09-30-2022 Office outpatient vi sit 15 minutes Sai Batres Work Phone: [facility] Work Phone: Start: 09-30-2022 ambulatory Erin Pan Facility:[id number] Start: 09-20-2022 End: 09-21-[address] RALEIGH EPPS Facility:[facility] Start: 09-10-2022 End: 09-10-[address] WES oSni Facility:[facility] Start: 07-19-2022 End: 07-19-[address] RALEIGH EPPS Facility:[facility] Start: 03-25-2022 ambulatory Erin Pan Facility:[id number] Start: 03-16-2022 End: 03-21-2022 Patient encounter procedure Viry Ortiz RDH Work Phone: [facility] Start: 03-07-2022 End: 03-07-2022 ambulatory JAYDE NUNEZ . Facility:[facility] Start: 09-11-2020 End: 09-12-2020 [facility] [facility] Start: 09-11-2020 End: 09-11-2020 Subsequent hospital visit by physician Raleigh Epps Work Phone: [facility] Comment on above: Pharyngeal dysphagia Start: 09-07-2020 End: 09-07-2020 Patient encounter procedure [facility] Start: 08-09-2019 End: 08-12-2019 Patient encounter procedure [facility] Start: 03-20-2019 Patient encounter procedure Erin Duke Nematollahi CP-Fwlvgsehnddew-HOQ [place] [address] Work Phone: Start: 11-21-2018 Patient encounter procedure Erinalva Wall Nematollahi JZ-Wrgkiqjnowpoe-WNS [place] [address] Work Phone: Start: 08-29-2018 End: 08-29-2018 Patient encounter procedure [facility] Start: 08-15-2018 Patient encounter procedure Erinalva Wall Nematollahi AB-Ijqidrmfjlrsi-UZE [place] [address] Work Phone: Start: 03-16-2018 Patient encounter procedure Erin Duke Nematollahi YE-Bmjpdlcckhxpj-TXH [place] [address] Work Phone: Start: 11-17-2017 Patient encounter procedure Erin Duke Nematollahi KN-Pnaqrntlgebfc-XSH [place] [address] Work Phone: Start: 05-26-2017 Patient encounter procedure Erin Duke Nematollahi TD-Pgooqsywscqti-RBV [place] [address] Work Phone: Procedures Date Procedure [...] f 2) Zoster Vaccines (1 of 2) [facility] Start: 03-07-2032 DTaP/Tdap/Td Vaccine s (9 - Td or Tdap) DTaP/Tdap/Td Vaccines (9 - Td or Tdap) [facility] Start: 11-15-2026 [facility] Start: 09-15-2024 Creatinine measurement Basic Metabol ic [facility] Start: 05-15-2024 End: 05-15-2024 Patient encounter procedure 05/15/2024 11:40 AM EDT Office Visit [facility] [address] [address] [place] [address] [place] [address] [address] Department [place] [address] [facility] Start: 11-15-2023 End: 11-15-2024 Calcitriol [Mass/volume] in Serum or Plasma Vitamin D 1,25 Dihydroxy (for eval of hypercalcemia) Lab Routine Hypercalcemia Expected: 11/15/2023, Expires: 11/15/2024 [facility] Work Phone: Comment on above: Expected: 11/15/2023 , Expires: 11/15/2024 Start: 11-15-2023 End: 11-15-2024 Calcium.ionized [Moles/volume] in Blood Calcium, Ionized Lab Routine Hypercalcemia Expected: 11/15/2023, Expires: 11/15/2024 [facility] Work Phone: Comment on above: Expected: 11/15/2023 , Expires: 11/15/2024 Start: 11-15-2023 End: 11-15-2024 Hepatic function 2000 panel - Serum or Plasma Hepatic Function Panel Lab Routine Hypercalcemia Expected: 11/15/2023, Expires: 11/15/2024 [facility] Work Phone: Comment on above: Expected: 11/15/2023 , Expires: 11/15/2024 Start: 11-15-2023 End: 11-15-2024 Parathyrin.intact [Mass/volume] in Serum or Plasma Parathyroid Hormone, Intact Lab Routine Hypercalcemia Expected: 11/15/2023, Expires: 11/15/2024 [facility] Service Area Work Phone: Comment on above: Expected: 11/15/2023 , Expires: 11/15/2024 Start: 11-15-2023 End: 11-15-2024 Renal function 2000 panel - Serum or Plasma Renal Function Panel Lab Routine Hypercalcemia Expected: 11/15/2023, Expires: 11/15/2024 [facility] Work Phone: Comment on above: Expected: 11/15/2023 , Expires: 11/15/2024 Start: 11-15-2023 End: 11-15-2024 Thyrotropin [Units/volume] in Serum or Plasma Thyroid Stimulating Hormone Lab Routine Hypothyroidism, unspecified type Expected: 11/15/2023, Expires: 11/15/2024 [facility] Work Phone: Comment on above: Expected: 11/15/2023 , Expires: 11/15/2024 Start: 11-15-2023 End: 11-15-2024 Thyroxine (T4) free [Mass/volume] in Serum or Plasma Thyroxine, Free Lab Routine Hypothyroidism, unspecified type Expected: 11/15/2023, Expires: 11/15/2024 [facility] Work Phone: Comment on above: Expected: 11/15/2023 , Expires: 11/15/2024 Start: 10-02-2023 End: 10-02-2023 DENTAL RESTORATIONS DENTAL RESTORATIONS Routine scheduled Caries 10/02/2023 1:10 PM EST [facility] Start: 10-02-2023 End: 10-02-2023 Admission to same day surgery center 10/02/2023 11:24 AM EST - 10/02/2023 1:21 PM EST Surgery [facility] Ambulatory Surgery [address] [place] [address] Tyrese Alexander, DDS [address] [place] [address] DENTAL RESTORATIONS [facility] Comment on above: DENTAL RESTORATIONS Start: 10-02-2023 End: 10-02-2023 DENTAL RESTORATIONS DENTAL RESTORATIONS Routine scheduled Caries 10/02/2023 11:24 AM EST [facility] Start: 10-02-2023 End: 10-02-2023 Admission to same day surgery center 10/02/2023 7:30 AM EST - 10/02/2023 9:27 AM EST Surgery [facility] Ambulatory Surgery [address] [id number] Tyrese Alexander, DDS [address] [id number] DENTAL RESTORATIONS [facility] Comment on above: DENTAL RESTORATIONS Start: 10-02-2023 End: 10-02-2023 DENTAL RESTORATIONS DENTAL RESTORATIONS Routine scheduled Caries 10/02/2023 7:30 AM EST [facility] Start: 10-02-2023 Subsequent hospital visit by physician [facility] Start: 10-02-2023 End: 10-02-2023 Patient encounter procedure [facility] Start: 09-15-2023 End: 09-15-2023 Patient encounter procedure 09/15/2023 2:00 PM EDT Office Visit [facility] [address] [place] [address] Bola Claire MD [address] [place] [address] [facility] Start: 07-14-2023 COVID-19 Vaccine ( season) COVID-19 Vaccine ( season) [facility] Start: 07-14-2023 Influenza vaccination Influenza Vacc ine (#1) [facility] Start: 02-09-2021 COVID-19 Vaccine (3 - Pfizer series) COVID-19 Vaccine (3 - Pfizer series) [facility] Start: 07-14-2020 Influenza vaccinatio n given Sequential Influenza Vaccine (#1) [facility] Start: 08-15-2019 Thyroid stimulating hormone measurement TSH Level [facility] Start: 2018 HPV Vaccine (optiona l start 27-45 years) HPV Vaccine (optional start 27-45 years) [facility] Start: 07-14-2013 Annual wellness visit Annual W ellness Visit (G0438) [facility] Start: 10-28-2009 Varicella vaccination Varicell a Vaccines (1 of 2 - 2-dose childhood series) [facility] Start: 2009 Hepatitis C antibody , confirmatory test Hepatitis C Screening [facility] Start: 2009 [facility]atitis C screening [facility] Start: 2006 HIV screening [facility] Start: 1994 History and physical examination, annual for health maintenance Wellness Visit [facility] Start: 1991 Basic metabolic 2000 panel - Serum or Plasma Basic Metabolic Panel [facility] Start: 1991 Creatinine measurement Basic Metabol ic Panel [facility] Start: 1991 Hepatitis B Vaccines (1 of 3 - 3-dose series) Hepatitis B Vaccines (1 of 3 - 3-dose series) [facility] Start: 1991 HIV screening HIV Screening [facility] Start: 1991 Lipid panel Lipid Panel [facility] Start: 1991 Medicare Annual Wellness Visit Medicare Annual Wellness Visit (AWV) [facility] Start: 1991 Tetanus vaccination Tetanus: Every 1 0yrs [facility] Start: 1991 Thyroid stimulating hormone measurement TSH [facility] End: 09-15-2024 Basic metabolic 2000 panel - Serum or Plasma BASIC METABOLIC PANEL Lab Routine Pre-op exam 1 Occurrences starting 09/15/2023 until 09/15/2024 [facility] Work Phone: Comment on above: 1 Occurrences starti ng 09/15/2023 until 09/15/2024 CBC panel - Blood by Automated count COMPLETE BLOOD COUNT Lab Routine Pre-op exam Ordered: 09/15/2023 [facility] Comment on above: Ordered: 09/15/2023 DENTAL RESTORATIONS DENTAL [place]ANKLY[place] RATIONS Routine scheduled Caries [facility] Immunizations Immunization Date Immunization Notes Care Provider [facility] 03-07-2022 diphtheria, tetanus toxoids and pertussis vaccine Viry Ortiz [facility] Work Phone: [facility] 09-08-2021 influenza, injectabl e, quadrivalent, preservative free Viry Angel RD Work Phone: [facility] 09-08-2021 influenza virus vaccine, unspecified formulation Carline Greenwood Bruna DDS Work Phone: [facility] 12-15-2020 Pfizer SARS-COV-2 (COVID-19) vaccine, age 12+ yrs, mRNA, spike protein, LNP, preservative free, 30 mcg/0.3mL dose (BVQ=954) Viry Angel RD Work Phone: [facility] 11-24-2020 Pfizer SARS-COV-2 (COVID-19) vaccine, age 12+ yrs, mRNA, spike protein, LNP, preservative free, 30 mcg/0.3mL dose (CNR=167) Viry Angel RD Work Phone: [facility] 08-27-2020 influenza, injectabl e, quadrivalent, preservative free Viry Angel RD Work Phone: [facility] 08-22-2018 influenza, injectabl e, quadrivalent, contains preservative Viry Angel RD Work Phone: [facility] Work Phone: 09-06-2017 influenza, injectabl e, quadrivalent, contains preservative Viry Angel RD Work Phone: [facility] 11-15-2016 tetanus toxoid, redu danika diphtheria toxoid, and acellular pertussis vaccine, adsorbed [facility] Comment on above: Series: 09-03-2015 influenza, injectabl e, quadrivalent, preservative free Viry Angel RD Work Phone: [facility] 09-30-2009 novel [id number], preservative-free, injectable Viry Angel RDH Work Phone: [facility] 09-04-2008 influenza virus vaccine, whole virus Viry Gutierrezrillo RD Work Phone: [facility] 08-29-2007 influenza, seasonal, injectable Viry Angel RD Work Phone: [facility] 03-29-2007 meningococcal polysaccharide (groups A, C, Y and W-135) diphtheria toxoid conjugate vaccine (MCV4P) Viry Angel [facility] Work Phone: [facility] 09-29-2006 tetanus toxoid, redu danika diphtheria toxoid, and acellular pertussis vaccine, adsorbed Viry Angel [facility] Work Phone: [facility] 09-12-2006 influenza, seasonal, injectable Viry Angel RD Work Phone: [facility] 06-25-2003 measles, mumps and rubella virus vaccine Viry Angel [facility] Work Phone: [facility] 09-25-1996 diphtheria, tetanus toxoids and pertussis vaccine Viry Angel [facility] Work Phone: [facility] 09-25-1996 poliovirus vaccine, inactivated Viry Angel [facility] Work Phone: [facility] 02-05-1993 diphtheria, tetanus toxoids and pertussis vaccine Viry Angel RD Work Phone: [facility] 11-23-1992 haemophilus influenz ae type b vaccine, conjugate unspecified formulation Viry Angel [facility] Work Phone: [facility] 11-23-1992 measles, mumps and rubella virus vaccine Viry Angel RD Work Phone: [facility] 10-02-1992 poliovirus vaccine, inactivated Viry Angel RD Work Phone: [facility] 02-03-1992 diphtheria, tetanus toxoids and pertussis vaccine Viry Angel RD Work Phone: [facility] 02-03-1992 haemophilus influenz ae type b vaccine, conjugate unspecified formulation Viry Angel RD Work Phone: [facility] 1991 diphtheria, tetanus toxoids and pertussis vaccine Viry Angel RD Work Phone: [facility] 1991 haemophilus influenz ae type b vaccine, conjugate unspecified formulation Viry Angel RD Work Phone: [facility] 1991 trivalent poliovirus vaccine, live, oral Viry Angel RD Work Phone: [facility] 1991 diphtheria, tetanus toxoids and pertussis vaccine Viry Angel RD Work Phone: [facility] 1991 haemophilus influenz ae type b vaccine, conjugate unspecified formulation Viry Angel [facility] Work Phone: [facility] 1991 trivalent poliovirus vaccine, live, oral Viry Angel [facility] Work Phone: [facility] Payers Date Payer Category Payer Unknown 2023 Unknown [id number] 2020 Medicaid MEDICAID [facility] [id number] 2020-Present [id number] 2016 Medicare [id number] 2012 Medicare MEDICARE MEDICAR E PART A & B [id number] 2012-Present [address] [place] [address] Medicare [id number] 2010 Medicaid [id number] 1991 Unknown [id number] 2.16.840.1.354770.3.579.2.176 1991 Unknown [id number] 2.16.840.1.160733.3.579.2.176 1991 Unknown [id number] 2.16.840.1.684763.3.579.2.903 1991 Unknown [id number] 2.16.840.1.988718.3.579.2.593 1991 Unknown [id number] 2.16.840.1.442118.3.579.2.593 1991 Unknown [id number] 2.16.840.1.530788.3.579.2.593 1991 Unknown [id number] 2.16.840.1.582222.3.579.2.593 1991 Unknown [id number] 2.16.840.1.858376.3.579.2.593 1991 Unknown [id number] 2.16.840.1.328853.3.579.2.593 1991 Unknown [id number] 2.16.840.1.123425.3.579.2.593 1991 Unknown [id number] 2.16.840.1.987362.3.579.2.356 1991 Unknown [id number] 2.16.840.1.354618.3.579.2.356 1991 Unknown [id number] 2.16.840.1.569711.3.579.2.356 1991 Unknown [id number] 2.16.840.1.418031.3.579.2.732 1991 Unknown [id number] 2.16.840.1.794401.3.579.2.732 1991 Unknown [id number] 2.16.840.1.728751.3.579.2.732 1991 Unknown [id number] 2.16.840.1.330172.3.579.2.732 1991 Unknown [id number] 2.16.840.1.279545.3.579.2.727 1991 Unknown [id number] 2.16.840.1.361389.3.579.2.1244 1991 Unknown [id number] 2.16.840.1.597342.3.579.2.1244 1959 Medicaid [id number] 1959 Medicare [id number] Social History Date Type Detail Facility Tobacco smoking status NHIS Unknown if ever smoked SX-Nzsbavmqhlydl-ANC [place] [address] Work Phone: Start: 1991 Sex Assigned At Not on file [facility] Exposure to SARS-CoV-2 (event) Not sure [facility] Start: 12-07-2017 Tobacco smoking status IAIS Never smoked tobacco [facility] Start: 12-07-2017 Tobacco use and exposure Smokeless tobacco non-user [facility] Never smoker Never smoker [facility] Work Phone: Gender identity Not on file [facility] Tobacco smoking status IAIS Tobacco smoking consumption unknown [facility] Work Phone: Start: 11-05-2023 End: 11-15-2023 Exposure to SARS-CoV-2 (event) Yes [facility] NEGATED: Highlighted row - - LP-Tybppwtglitft-HTK [place] [address] Work Phone: Functional Status Date Assessment Result Facility NEGATED: Highlighted row Functional performance Functional status health issues are not documented Disease XD-Stvyqhoroxdkg-BL C [place] [address] Work Phone: Mental Status Date Assessment Result Facility NEGATED: Highlighted row Cognitive function [Interpretation] Cognitive status health issues are not documented Disease TY-Zuujinljojawu-UT C [place] [address] Work Phone: Clinical Notes [...] not from other meds. He not on [place] 300 mg anymore but is on oxecarbamzaepine [...] 2.17 m guardian is brother Yogesh nb [phone] Associated attestation - Bree Whiting MD - [...] in the note. documented in this encounter [facility] Work Phone: 11-15-2023 Instructions Bree Whiting MD - 11/15/2023 9:40 AM EST -change timing for levothyroxine to 50mcg daily at600 am hold other meds at least 30 min after -increase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
[2024-09-24 08:19] LABS: Anion Gap 15.8; BUN Creatinine Ratio 10.3; Calcium 9.3 mg/dL (8.5-10.1); Carbon Dioxide 23.6 mmol/L (21.0-32.0); Chloride 110 mmol/L (98-107); Estimated GFR (African America >60 (>=60 mL/min/1.73m^2); Estimated GFR (Non-African Ame 52 (>=60 mL/min/1.73m^2); Glucose 81 mg/dL (74-106); Phosphorus 2.9 mg/dL (2.6-4.7); Potassium 4.4 mmol/L (3.5-5.1); Sodium 145 mmol/L (136-145); Thyroid Stimulating Hormone 2.269 uIU/mL (0.358-3.740)
[2024-09-24 09:14] LABS: Free T4 0.51 ng/dL (0.76-1.46)
[2024-09-25 14:11] LABS: PTH, Intact 8 pg/mL (15-65)
== END 2024-09-24 06:58 | disposition home or self-care (01) ==
LOC: LAB 06:57
PROVIDERS: PCP Family Medicine; Visit Provider Family Medicine
DX: E03.9 Hypothyroidism, unspecified (principal); Z86.39 Personal history of other endocrine, nutritional and metabolic disease
CPT/HCPCS: 36415; 80069; 82306; 83735; 83970; 84439; 84443

== ENCOUNTER 2024-11-26 06:49 | Outpatient (OUT) | payer MEDICARE, MEDICAID, SELFPAY ==
--- OUTSIDE RECORDS SUMMARY | 2024-11-26 06:53 | XMS_ITS | CCD ---
Author Organization [facility] Care Team Providers Care Biologist Name Role Phone DABOUL, ISAM Admitting Unavailable [...] Unavailable Raleigh Epps DO Primary Care Provider [phone] Sai Batres Unavailable Unavailable Unavailable JAYDE ALEXIS [...] Unavailable Raleigh Epps DO Primary Care Provider [phone] PROVIDER, UNKNOWN Admitting Unavailable PROVIDER, UNKNOWN Attending [...] (3 sources) fluvoxaMINE; Translations: [Luvox] Drug Allergy [facility] Repository (16 sources) QUEtiapine; Translations: [SEROquel TABS] Drug Allergy 02-03-2017 Unknown [facility]ology -[facility] [place] [address] Work Phone: (5 sources) risperiDONE; Translations: [risperiDONE TABS] Drug Allergy 02-06-2017 Unknown [facility]ology -[facility] [place] [address] Work Phone: (2 sources) Valproate; Translations: [Depakote] Drug Allergy [facility]inology -[facility] [place] [address] Work Phone: (16 sources) fluvoxaMINE; Translations: [FLUVOXAMINE] Drug Allergy 02-06-2017 [facility] (13 sources) Valproate; Translations: [VALPROIC ACID] Drug Allergy 02-03-2017 [facility] (13 sources) risperiDONE; Translations: [RISPERIDONE] Drug Allergy 02-06-2017 [facility] (2 sources) QUEtiapine; Translations: [QUETIAPINE] Drug Allergy 02-03-2017 [facility] Repository (3 sources) Valproate; Translations: [DIVALPROEX] Drug Allergy 11-15-2023 Unknown [facility] (1 source) QUEtiapine; Translations: [SEROquel] Drug Allergy [facility] Repository Medications Current Medications Medication Drug [...] busPIRone hydrochloride 10 m g oral tablet (16 sources) take 3 tablets by mo ut three times daily busPIRone (Buspar) 10 mg tablet Take 3 tablets (30 mg) by mouth 3 times a day. Active take 1 tablet by mouth three dalia es daily busPIRone HCl - 10 MG Oral Tablet TAKE 1 TABLET 3 times daily Quantity: 0 Refills: 0 Ordered: 16-Mar-2018 DO Active calcium carbonate 500 mg chewable tablet (4 sources) Start: 05-25-2021 calcium carbon ate (Tums) 200 mg calcium chewable tablet Chew 2 tablets (1,000 mg) once daily at bedtime. 05/25/2021 Active Start: 05-25-2021 Antacid Regula r Strength 500 MG Oral Tablet Chewable CHEW 2 TABLET BY MOUTH AT NIGHT BEFORE BED FOR NAUSEAUPSET STOMACH Quantity: 28 Refills: 0 Ordered: 19-Jan-2022 DO Start : 25-May-2021 Active Antacid CHEW ISAMAR E DIRECTED. Chew 2 every 4 hours as needed Refills: 0 Active calcium carbonate 1250 mg / cholecalciferol 200 unt oral tablet (1 source) Vitamin D take 1 tablet by mouth twice daily calcium carbonate-vitamin D3 (Oyster Shell Calcium-Vit D3) 500 mg-5 mcg (200 unit) tablet Take 1 tablet by mouth 2 times a day. Active Calcium Carbonate Antacid (ANTACID ORAL) (12 sources) take 2 tablets by mouth at bedtime Calcium Carbonate Antacid (ANTACID ORAL) Take 2 Tablets by mouth at bedtime. 0 Active cholecalciferol 0.025 mg oral tablet (15 sources) Vitamin D Start: take 1 tablet by mouth once daily cholecalciferol (Vitamin D-3) 25 MCG (1000 UT) tablet Take 1 tablet (25 mcg) by mouth once daily. 03/25/2022 Active Start: 03-25-2022 take 1 tablet [...] Active docusate sodium 100 mg oral capsule (16 sources) take 1 capsule by mouth three times daily docusate sodium (Colace) 100 mg capsule Take 1 capsule (100 mg) by mouth 3 times a day. Active take 2 capsules by [facility] three times daily Docusate Sodium 100 MG Oral Capsule 2 capsules 3 times a day Quantity: 0 Refills: 0 Ordered: 01-Aug-2014 DO Active folic acid 1 mg oral tablet (16 sources) take 1 tablet by mouth once daily folic acid (Folvite) 1 mg tablet Take 1 tablet (1 mg) by mouth once daily. Active gabapentin 400 mg oral capsule (6 sources) Anti-epileptic Agent take 1 capsule by mouth once daily gabapentin (Neurontin) 400 mg capsule Take 1 capsule (400 mg) by mouth once daily. Active take 1 tablet by brenna three times daily gabapentin (Neurontin) 800 mg tablet Isamar e 1 tablet (800 mg) by mouth 3 times a day. Active guanFACINE 1 mg oral tablet (20 sources) Central alpha-2 Adrenergic Agonist Start: 03-25-2022 take 2 tablets by mouth once daily at bedtime guanFACINE (Tenex) 1 mg tablet Take 2 tablets (2 mg) by mouth once daily at bedtime. 03/25/2022 Active Start: 03-25-2022 take 1 tablet by [facility] at bedtime guanFACINE HCl - 1 MG Oral Tablet TAKE 1 TABLET AT BEDTIME. Quantity: 0 Refills: 0 Ordered: 25-Mar-2022 DO Start : 25-Mar-2022 Active take 1 tablet by [facility] twice daily guanFACINE (Tenex) 2 mg tablet Take 1 tablet (2 mg) by mouth twice a day. Active take 4 tablets by [facility] in the morning, then take 8 [...] 0.2 mg linaclotide 0.29 mg oral capsule (16 sources) Guanylate Cyclase-C Agonist Start: 03-24-2016 take 1 capsule by mouth once daily linaCLOtide (Linzess) 290 mcg capsule Take 1 capsule (290 mcg) by mouth once daily. 03/24/2016 Active loratadine 10 mg oral tablet (16 sources) take 1 tablet by mouth once daily loratadine (Claritin) 10 mg tablet Take 1 tablet (10 mg) by mouth once daily. Active lurasidone hydrochloride 120 mg oral tablet (16 sources) Atypical Antipsychotic Start: 01-20-2022 take 1 tablet by mouth once daily at bedtime lurasidone (Latuda) 120 mg tablet Take 1 tablet (120 mg) by mouth once daily at bedtime. 01/20/2022 Active take 1 tablet by mouth at bedtim e lurasidone (LATUDA) 80 MG tablet Take 1 Tablet by mouth at bedtime. 0 Active melatonin 5 mg oral tablet (16 sources) take 1 tablet by mouth once daily at bedtime melatonin 5 mg tablet Take 1 tablet (5 mg) by mouth once daily at bedtime. Active metoprolol tartrate 100 mg oral tablet (16 sources) beta-Adrenergic Doug take 1 tablet by mouth four times daily metoprolol tartrate (Lopressor) 100 mg tablet Take 1 tablet (100 mg) by mouth 4 times a day. Active Multiple Vitamins-Minerals (THERA-M ORAL) (12 sources) take 1 tablet by mouth once daily Multiple Vitamins-Minerals (THERA-M ORAL) Take 1 Tablet by mouth daily. 0 Active 1 ml naloxone hydrochloride 0.4 mg/ml injection (1 source) Opioid Antagonist Start: naloxone (NARCAN) 0.4 MG/ML injection omeprazole 20 mg delayed release oral capsule (16 sources) Proton Pump Inhibitor take 1 capsule by mouth once daily omeprazole (PriLOSEC) [address] capsule Take 1 capsule (20 mg) by mouth once daily. Active take 10 tablets by mouth once [...] Start: 01-27-2015 take 1 tablet by brenna every six hours as needed for nausea Ondansetron HCl - 4 MG Oral Tablet TAKE 1 TABLET Every 6 hours PRN nausea Quantity: 0 Refills: 0 Ordered: 27-Jan-2015 DO Start : 27-Jan-2015 Active OXcarbazepine 600 mg oral tablet (20 sources) Anti-epileptic Agent Start: 08-19-2021 OXcarbaze pine (Trileptal) 600 mg tablet Take by mouth 2 times a day. 08/19/2021 Active Start: 08-19-2021 take 2 tablets [...] % injection topiramate 25 mg oral capsule (4 sources) take 1 capsule by mouth three times daily topiramate (Topamax Sprinkle) 25 mg capsule Take 1 capsule (25 mg) by mouth 3 times a day. Active take 1 capsule by mouth twice da regulo topiramate (TOPAMAX) 25 MG capsule Take 25 mg by mouth 2 times daily. 0 Active traMADol hydrochloride 50 mg oral tablet (1 source) Opioid Agonist Start: 10-02-2023 End: 10-02-2023 tramadol (ULTRAM) tablet traZODone hydrochloride 100 mg oral tablet (15 sources) Serotonin Reuptake Inhibitor Start: 10-19-2021 take 0.5 tablet by mouth once daily at bedtime traZODone (Desyrel) 100 mg tablet Take 0.5 tablets (50 mg) by mouth once daily at bedtime. 10/19/2021 Active Start: 10-19-2021 take 1 tablet by brenna th at bedtime traZODone HCl - 100 MG Oral Tablet TAKE ONE TABLET BY MOUTH AT BEDTIME DESYREL Quantity: 14 Refills: 0 Ordered: 26-Jan-2022 DO Start : 19-Oct-2021 Active vitamin b12 1 mg oral tablet (1 source) Vitamin B12 take 1 tablet by mouth once daily cyanocobalamin (Vitamin B-12) 1,000 mcg tablet Take 1 tablet (1,000 mcg) by mouth once daily. Active Completed/Discontinued Medications Medication Drug Class(es) Dates [...] 04-Aug-2017 Active take 1 tablet by brenna th twice daily clonazePAM (KlonoPIN) 1 MG tablet [...] Active take 1 tablet by mouth twice edtih ly Mucinex 600 MG Oral Tablet Extended [...] Active levothyroxine sodium 0.05 mg oral tablet (18 sources) l-Thyroxine Start: 12-28-19 18 End: 05-15-20 24 take 1 tablet by mouth once daily Levothyroxine Sodium 50 MCG Oral Tablet TAKE 1 TABLET DAILY. Quantity: 30 Refills: 0 Ordered: 25-Mar-2022 DO Start : 25-Mar-2022 Active Start: 10-19-2017 take 1 tablet by brenna th once daily Levothyroxine Sodium 100 MCG Oral Tablet TAKE 1 TABLET DAILY EXCEPT SATURDAYS. Quantity: 30 Refills: 10 Start : 19-Oct-2017 Active take 1 tablet by brenna th once daily in the morning levothyroxine (Synthroid, Levoxyl) 75 mcg tablet Take 1 tablet (75 mcg) by mouth early in the morning.. Take on an empty stomach at the same time each day, either 30 to 60 minutes prior to breakfast Active minocycline 100 mg oral tablet (1 source) Tetracycline-class Drug Minocycl ine HCl - 100 MG Oral Tablet daily Refills: 0 Active polyethylene glycol 3350 60507 mg powder for oral solution (2 sources) [...] chemistry] Episodic Other aftercare (1 source) Other assistant terminal manager (current) drug therapy; Translations: [OTH PATIENTS TRANSPORTER CURRENT DRUG THERAPY] Onset: 3 Episodic Other endocrine disorders (1 source) Hyperparathyroidism; Translations: [Hyperparathyroidism, unspecified] 05-15-2024 Chronic Other endocrine disorders (2 sources) Hyperparathyroidism, unspecified; [...] Chronic Comment on above: Added by Problem Shagufta maradiaga Migration; 2013-07-05; Moved to Oct 05 2013 9:01PM; Other nutritional; endocrine; and metabolic disorders (2 sources) Hypocalcemia; Translations: [Hypocalcemia] Chronic Other nutritional; endocrine; and metabolic disorders (1 source) Hypocalcemia; Translations: [HYPOCALCEMIA] Onset: 2 Chronic Other nutritional; endocrine; and metabolic disorders (2 sources) Abnormal weight loss; Translations: [Loss of weight] Episodic Comment on above: Added by Problem Shagufta maradiaga Migration; 2013-07-05; Moved to Oct 05 2013 9:01PM; Other nutritional; endocrine; and metabolic disorders (2 sources) Overweight in adulthood with body mass index of 25 or more but less than 30; Translations: [Body mass index (BMI) 28.0-28.9, adult] 09-15-2023 Episodic Thyroid disorders (20 sources) Multinodular goiter; [...] HEAD INITIAL ENC] Onset: 09-12-2022 Episodic Other nutritional; endocrine; and metabolic disorders (1 source) H/O: metabolic disorder; Translations: [Personal history of other endocrine, nutritional and metabolic disease] 05-15-2024 Episodic Other nutritional; endocrine; and metabolic disorders (2 sources) Personal history of other endocrine, nutritional and metabolic disease; Translations: [Personal history of other endocrine, nutritional and metabolic disease] Onset: 05-15-2024 Episodic Other screening for suspected conditions (not mental disorders or infectious disease) (1 source) Other specified abnormal findings of blood chemistry; Translations: [OTH SPEC ABNORMAL FINDINGS BLD CHEM] Onset: 10-10-2022 Episodic NEGATED: Highlighted row has not occurred!Residual codes; unclassified (6 sources) Disease Episodic Results Test Name Value Interpretation Reference Range Facility Consent for Treatmenton Consent for Treatment [id number] Normal [facility] XR Adult Swallowing Function w/ Videoon [...] GLEN Technologist: FAMILIA Technical Comments Radiation Dose: Ka,r in mGy = 17.10 DAP = 395.03 Normal [facility] Physician Orderon 12-11-2023 Physician Order [id number]. [id number] Normal [facility] Anesthesia Postprocedure Clara luationon 10-03-2023 Manager Sales And Marketing Authentication Interface Message Text Anesthesia Postoperative Assessment: [...] EVENTS: No notable events documented. Normal [facility] Anesthesia Preprocedure Eval uationon 10-02-2023 Manager Sales And Marketing Authentication Interface Message Text ASA: 3 No [...] were discussed with the patient and/or legal employee relations representative. The risks, benefits and alternatives were reviewed. Questions regarding anesthesia were answered. Patient and/or legal employee relations representative knows such anesthetics and procedures may be performed by Resident physicians, Certified Anesthesiologist Assistants, or Certified Nurse Anesthetists under the supervision of a physician. The patient /or the patient's legal employee relations representative agree with the plan for anesthesia. [...] DENTAL RESTORATIONS; Surgeon: Grabiel Cummings DDS; Location: [facility] Surgery [place]; Service: Dental * EXTRACTION, TOOTH 02/06/2017 Procedure: EXTRACTION, TOOTH; Surgeon: Noé Drew DDS; Location: PERIOPERATIVE SERVICES; Service: Dental * UNLISTED PROCEDURE, DENTOALVEOLAR STRUCTURES 04/29/10 * X-RAY EXAM OF TEETH. [id number] 04/29/10 Social History Socioeconomic History * Marital status: Single Tobacco Use * Smoking status: Never * Smokeless tobacco: Never Social History Narrative [facility]. Brother is guardian. Current Outpatient Medications on [...] carbamazepine (more content not included)... Normal [facility] Anesthesia Transfer Of Careo n 10-02-2023 Manager Sales And Marketing Authentication Interface Message Text Patient taken to [...] surgical history indicates: X-RAY EXAM OF TEETH. [id number] (04/29/10) UNLISTED PROCEDURE, DENTOALVEOLAR STRUCTURES (04/29/10) DENTAL RESTORATIONS (02/06/2017) Procedure: DENTAL RESTORATIONS; Surgeon: Noé Drew DDS; Location: PERIOPERATIVE SERVICES; Service: Dental EXTRACTION, TOOTH (02/06/2017) Procedure: EXTRACTION, TOOTH; Surgeon: Noé Drew DDS; Location: PERIOPERATIVE SERVICES; Service: Dental DENTAL RESTORATIONS (02/15/2021) Procedure: DENTAL RESTORATIONS; Surgeon: Grabiel Cummings DDS; Location: [facility]; Service: Dental Allergies: Depakote [valproic acid], Luvox [fluvoxamine], Risperidone, and Seroquel [quetiapine] Basic Operating Room Facts: Surgeon(s): Tyrese Alexander DDS Anesthesiologist: Timothy Elizalde MD MANAGED CARE MANAGER: Rainer Fatima APRN-CRNA Anesthesia Student: Joyce Rivers DENTAL RESTORATIONS (Bilateral) [...] (cm) 27 10/02/23 1333 Measured from: Naris 10/02/23 1333 Secured via: Taped 10/02/23 1333 Site Assessment WNL 10/02/23 1333 All non-working IVs have been removed: N/A [...] of understanding of the report was received. KATIE Cunningham Normal [facility] Blood Attestationon 11-20-20 23 Manager Sales And Marketing Authentication Interface Message Text Blood Attestation: ATTESTATION OF INFORMED CONSENT FOR BLOOD: The transfusion of blood and/or blood components were discussed with the patient and/or legal employee relations representative. The risks, benefits and alternatives were reviewed. Questions regarding blood transfusions were answered. The patient /or the patient's legal employee relations representative agree with the plan for transfusion of blood and/or blood components. Normal [facility] Brief Operative Noteon 10-02 Manager Sales And Marketing Authentication Interface Message Text Brief Operative Note PHE OR 3 Markel Li 33 year old male Surgical Contact Serial Number: [id number] Preoperative Diagnosis: Caries [K02.9] Autism [ F 84] Postoperative Diagnosis: * Caries [K02.9] Procedures: Full mouth X ray [81788] Comprehensive exam [21643] Prophylaxis [73597] Restorations [15579] Surgeon(s): Surgeon(s): Tyrese Alexander DDS Staff: Director Of Revenue Cycle Management Nurse: Nina Galan RN End Lathe Operator: Ca Raza DDS; Rosas Narayanan DDS Anesthesia: General Anesthesiologist: Timothy Elizalde MD MANAGED CARE MANAGER: Rainer Fatima APRN-CRNA Anesthesia Student: Joyce Rivers Specimen(s): * No [...] Martini DDS 10/02/2023 2:29 PM Normal [facility] OP Noteon 10-02-2023 Manager Sales And Marketing Authentication Interface Message Text Surgical Case Number Data Unavailable Operating Room Data Unavailable Preoperative Diagnosis: Caries [K02.9] Autism [ F 84] Preoperative Diagnosis: Caries [K02.9] Autism [ F 84] Postoperative Diagnosis: Autism [ F 84] Procedures: Full mouth X ray [48135] Comprehensive exam [18198] Prophylaxis [09367] Restorations [09238] Postoperative Diagnosis(es): Same @ENCORD@ Surgeon: Dr Tyra DDS Parts Counter Specialist Surgeon: WILLIAMS Corcoran DDS Anesthesia: General- Nasal [...] Martini DDS 10/02/2023 2:34 PM Normal [facility] Progress Noteson 10-02-2023 Manager Sales And Marketing Authentication Interface Message Text ----- Monday, October 02, 2023 at 2:27:57 PM ----- ----- Provider: Alessio Mary DDS -- Clinic: [facility] ----- [place] notes, [facility] pt is read for tx good [place]. [...] Note Type: OP Note Status: Cosign Needed Children'S Entertainer: Rosas Narayanan DDS (Resident) Cosign Required: Yes Expand All Collapse All Surgical Case Number Data Unavailable Operating Room Data Unavailable Preoperative Diagnosis: Caries [K02.9] Autism [ F 84] Preoperative Diagnosis: Caries [K02.9] Autism [ F 84] Postoperative Diagnosis: Autism [ F 84] Procedures: Full mouth X ray [18041] Comprehensive exam [53313] Prophylaxis [09034] Restorations [54520] Postoperative Diagnosis(es): Same @ENCORD@ Surgeon: Dr Tyra DDS Parts Counter Specialist Surgeon: WILLIAMS Corcoran DDS Anesthesia: General- Nasal [...] Martini DDS 10/02/2023 2:34 PM Normal [facility] Telephone Encounteron 2022 Manager Sales And Marketing Authentication Interface Message Text DD adult dental restorations on 10/02 under [place] at [place]. PSE completed - consents obtained. PSE RN spoke to Miriam from [facility], confirmed O, [place] address, and 1100 arrival time Normal [facility] Telephone Encounteron 2022 Manager Sales And Marketing Authentication Interface Message Text Informed Consent for dental surgery AND Anesthesia consent obtained and scanned into [facility]. Scheduled for surgery 10/02/2023. Normal [facility] BASIC METABOLIC PANELon 11-0 Anion gap [Moles/Vol] 13 mmol/L Normal - The [facility] Comment on above: Performed By: #### C H8 ####S PATHOLOGY [id number] [place], [place], Calcium [Mass/Vol] 9.6 mg/dL Normal 8.4-10.[address] [facility] Comment on above: Performed By: #### C H8 ####S PATHOLOGY [id number] [place], [place], Chloride [Moles/Vol] 105 mmol/L Normal 97-111 [facility] Comment on above: Performed By: #### C H8 ####[facility] PATHOLOGY [id number] [place], [place], CO2 [Moles/Vol] 26 mmol/L Normal 21-30 The [facility] Comment on above: Performed By: #### C H8 ####[facility] PATHOLOGY [id number] [place], [place], Creatinine [Mass/Vol] 1.58 mg/dL High 0.80-1.30 [facility] Comment on above: Performed By: #### C H8 ####[facility] PATHOLOGY [id number] [place], [place], ESTIMATED GFR (CKD-EPI) 59 mL/min/1.73sqm Low >=60 The [facility] Comment on above: Result Comment: [...] Inclusion of Race in Diagnosing Kidney Disease. Stateless Journal of Kidney Diseases 2021;79(2):268-88.e1. 2. N Engl J Med 1 Vol. 385 Issue 19 Pages 5509-4118 Performed By: #### C H8 ####[facility] PATHOLOGY [id number] [place], [place], Glucose [Mass/Vol] 69 mg/dL Normal 68-110 The [facility] Comment on above: Performed By: #### C H8 ####S PATHOLOGY [id number] [place], [place], Potassium [Moles/Vol] 4.1 mmol/L Normal 3.3-5.3 [facility] Comment on above: Performed By: #### C H8 ####S PATHOLOGY [id number] [place], [place], Sodium [Moles/Vol] 140 mmol/L Normal 135-148 The [facility] Comment on above: Performed By: #### C H8 ####[facility] PATHOLOGY [id number] [place], [place], Urea nitrogen [Mass/Vol] 18 mg/dL Normal 8-22 The [facility] Comment on above: Performed By: #### C H8 ####S PATHOLOGY [id number] [place], [place], Basic metabolic 2000 panelon 09-15-2023 Anion gap [...] Inclusion of Race in Diagnosing Kidney Disease. Stateless Journal of Kidney Diseases 202;79(2):268-88.e1. 2. N Engl J Med 1 Vol. 385 Issue 19 Pages 4813-8973 Glucose [Mass/Vol] 69 mg/dL 68 - 110 mg/dL [facility] Interpretation and review of laboratory results Abnormal [facility] Potassium [Moles/Vol] 4.1 mmol/L 3.3 - 5.3 mmol/L [facility] Sodium [Moles/Vol] 140 mmol/L 135 - 148 mmol/L [facility] Urea nitrogen [Mass/Vol] 18 mg/dL 8 - 22 mg/dL [facility] CBC panel Auto (Bld)on 09-15 Erythrocyte distribution width (RBC) [Ratio] 13.3 % 11.5 - 14.5 % [facility] Hematocrit (Bld) [Volume fraction] 41.8 % 41.0 - 53.0 % [facility] Hemoglobin (Bld) [Mass/Vol] 13.8 g/dL Low 13.9 - 16.3 g/dL [facility] Interpretation and review of laboratory results Abnormal [facility] MCH (RBC) [Entitic mass] 28.7 pg 26.0 - 34.0 pg [facility] MCHC (RBC) [Mass/Vol] 32.9 g/dL 32.0 - 35.9 g/dL [facility] MCV (RBC) [Entitic vol] 87 fL 80 - 100 fL [facility] Platelet mean volume (Bld) [Entitic vol] 8.7 fL 7.5 - 11.2 fL [facility] Platelets (Bld) [#/Vol] 213 10*3/uL 150 - 400 K/uL [facility] RBC (Bld) [#/Vol] 4.80 10*6/uL [facility] WBC (Bld) [#/Vol] 6.3 10*3/uL 4.5 - 11.5 K/uL [facility] COMPLETE BLOOD COUNTon 09-15 Erythrocyte distribution width (RBC) [Ratio] 13.3 % Normal 11.5-14.5 The [facility] Comment on above: Performed By: #### C BC ####[facility] PATHOLOGY [id number] [place], [address] Hematocrit (Bld) [Volume fraction] 41.8 % Normal 41.0-53.0 The [facility] Comment on above: Performed By: #### C BC ####[facility] PATHOLOGY [id number] [place], [place], Hemoglobin (Bld) [Mass/Vol] 13.8 g/dL Low 13.9-16.3 The [facility] Comment on above: Performed By: #### C BC ####[facility] PATHOLOGY [id number] [place], [place], MCH (RBC) [Entitic mass] 28.7 pg Normal 26.0-34.0 The [facility] Comment on above: Performed By: #### C BC ####[facility] PATHOLOGY [id number] [place], [place], MCHC (RBC) [Mass/Vol] 32.9 g/dL Normal 32.0-35.9 The [facility] Comment on above: Performed By: #### C BC ####[facility] PATHOLOGY [id number] [place], [place], MCV (RBC) [Entitic vol] 87 fL Normal 80-100 The [facility] Comment on above: Performed By: #### C BC ####[facility] PATHOLOGY [id number] [place], [place], Platelet mean volume (Bld) [Entitic vol] 8.7 fL Normal 7.5-11.2 The [facility] Comment on above: Performed By: #### C BC ####[facility] PATHOLOGY [id number] [place], Platelets (Bld) [#/Vol] 213 10*3/uL Normal 150-400 The [facility] Comment on above: Performed By: #### C BC ####S PATHOLOGY [id number] [place], [place], RBC (Bld) [#/Vol] 4.80 10*6/uL Normal 4.50-5.90 The [facility] Comment on above: Performed By: #### C BC ####[facility] PATHOLOGY [id number] [place], [place], WBC (Bld) [#/Vol] 6.3 10*3/uL Normal 4.5-11.5 The [facility] Comment on above: Performed By: #### C ####[facility] PATHOLOGY [id number] [place], [address] PSE Chartingon 09-15-2023 Manager Sales And Marketing Authentication Interface Message Text Dental Consult The [...] Treatment Dental Treatment in the [place] [facility]-up [facility] [facility] [place] [facility] if needed Note: Legal guardian: Yogesh Li (BROTHER): [phone]. The patient lives in a Facility. A caregiver brushes his teeth twice a day. Ramu Jernigan DDS Normal [facility] Patient Instructionson 09-15 Manager Sales And [employer] Authentication Interface Message Text RECOMMENDATIONS: Patient was instructed on the following: Nothing by mouth after midnight before surgery except following meds with sip of water on AM of surgery: as per anesthesia Stop aspirin 7 days before surgery Stop NSAID 5 days before surgery Stop Vitamin E 10 days prior to surgery Stop alternative/herbal medication 10 days before surgery Normal [facility] Progress Noteson 09-15-2023 Manager [employer] Authentication Interface Message Text Blood pressure 112/72, [...] [Quetiapine] Latex Allergy: No Surgical Procedure: dental druze Surgeon: unknown Date of Surgery: 10/02/2023 HISTORY: [...] DENTAL RESTORATIONS; Surgeon: Grabiel Cummings DDS; Location: [facility] Surgery [place]; Service: Dental EXTRACTION, TOOTH 02/06/2017 Procedure: EXTRACTION, TOOTH; Surgeon: Noé Drew DDS; Location: PERIOPERATIVE SERVICES; Service: Dental UNLISTED PROCEDURE, DENTOALVEOLAR STRUCTURES 04/29/10 X-RAY EXAM OF TEETH. [id number] 04/29/10 Pertinent Social History Reviewed Social History [...] fever, chills, night sweats, and weight loss SENIOR COUNSEL COMMERCIAL: H/o seizures Respiratory: No h/o COPD, asthma dyspnea or recent URI Cardiovascular: No h/o chest pain/CO/CHF/valvular disease/HTN GI: Constipation : H/o urinary retention [...] N (more content not included)... 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 Lashon Parsons Normal [facility] Progress Noteson 09-06-2023 Manager [employer] Authentication Interface Message Text Parent/guardian(Mag gaines @ [place]) was contacted for PSE AND OR scheduled -- confirmed information with mom, also informed mom importance of receiving PSE call -- if not received surgery will be canceled ----- Wednesday, September 06, 2023 at 11:27:36 AM ----- ----- Provider: Bridget Lombardi Specialist -- Clinic: [place] ----- Normal [facility] Follow Up (Endocrinology)on 03-14-2023 Follow Up (Endocrinology) Diagnoses/Problems Assessed Hypothyroidism (244.9) (E03.9) Low vitamin D level (790.6) (R79.89) Hypocalcemia (275.41) (E83.51) Multinodular goiter (241.1) (E04.2) Orders Hypocalcemia, Hypothyroidism, Low vitamin D level Comprehensive Metabolic Panel; Status:Active; Requested for:14Mar2023; Perform:Lab Services - Lab To Draw (Blood Test); Due:12Jun2023;Ordered ; For:Hypocalcemia, Hypothyroidism, Low vitamin D level; Ordered By:Erin Ogden; Hemoglobin A1C; Status:Active; Requested for:14Mar2023; Perform:Lab Services - Lab To Draw (Blood Test); Due:[id number];Ordered ; For:Hypocalcemia, Hypothyroidism, Low vitamin D level; Ordered By:Erin Ogden; Osmolality, Serum; Status:Active; Requested for:14Mar2023; Perform:Lab Services - Lab To Draw (Blood Test); Due:[id number];Ordered ; For:Hypocalcemia, Hypothyroidism, Low vitamin D level; Ordered By:Erin Ogden; Osmolality, Urine Spot; Status:Active; Requested for:14Mar2023; Perform:Lab Services - Lab To Draw (Non-Blood Test); Due:12Jun2023;Ordered ; For:Hypocalcemia, Hypothyroidism, Low vitamin D level; Ordered By:Erin Ogden; TSH WITH REFLEX TO FREE T4 IF ABNORMAL; Status:Active; Requested for:14Mar2023; Perform:Lab Services - Lab To Draw (Blood Test); Due:12Jun2023;Ordered ; For:Hypocalcemia, Hypothyroidism, Low vitamin D level; Ordered By:Erin Ogden; Vitamin D 25-Hydroxy; Status:Active; Requested for:14Mar2023; Perform:Lab Services - Lab To Draw (Blood Test); Due:12Jun2023;Ordered ; For:Hypocalcemia, Hypothyroidism, Low vitamin D level; [...] visit regarding his thyroid. History of Present [age]ryogn32 yo male with severe mental retardation, autism, bipolar disorder,severe psychosis,GERD, HTN , hypercalcemia [facility] with exacerbation by lithium intake (that has [...] then eats a day after. not on [place] 300 mg , did not changed since last visit as per sheet . guardian is brother Yogesh nb [phone] seeing GI , EGD was fine. no acute issues. is losing weight again , had a lip biopsy and infected ulcer is healed, weight loss has stopped, on Lt4 50 mcgq day and we need recent albs, slightly more agitated , had a fall with bruise on his face , [place] physician is following. no changes in neuro [...] were norm (more content not included)... [facility] OSMOLALITYon 01-20-2023 Osmolality [Osmolality] 291 mosm/kg Normal 275-295 [facility] Comment on above: Performed By: #### C MP, T4, TSH #### [facility] [address] [place] [address] Dr. Juan Argueta CBC AUTO DIFFon 01-18-2023 BASO # 0.0 103/ul Normal 0.0-0.1 [facility] Comment on above: Performed By: #### C MP, T4, TSH #### [facility] [address] [place] [address] Dr. Juan Argueta Basophils/100 WBC (Bld) 0.6 % Normal 0.2-2.0 [facility] Comment on above: Performed By: #### C MP, T4, TSH #### [facility] [address] [place] [address] Dr. Juan Argueta EO # 0.1 103/ul Normal 0.0-0.7 [facility] Comment on above: Performed By: #### C MP, T4, TSH #### [facility] [address] [place] [address] Dr. Juan Argueta Eosinophils/100 WBC (Bld) 2.8 % Normal 0.9-7.0 [facility] Comment on above: Performed By: #### C MP, T4, TSH #### [facility] [address] [place] [address] Dr. Juan Argueta Erythrocyte distribution width (RBC) [Ratio] 12.9 % Normal 11.0-15.0 [facility] Comment on above: Performed By: #### C MP, T4, TSH #### [facility] [address] [place] [address] Dr. Juan Argueta Hematocrit (Bld) [Volume fraction] 45.4 % Normal 42.0-54.0 [facility] Comment on above: Performed By: #### C MP, T4, TSH #### [facility] [address] [place] [address] Dr. Juan Argueta Hemoglobin (Bld) [Mass/Vol] 15.4 g/dL Normal 14.0-18.0 [facility] Comment on above: Performed By: #### C MP, T4, TSH #### [facility] [address] [place] [address] Dr. uJan Argueta IG # 0.01 10e3/ul Normal 0.00-0.03 [facility] Comment on above: Performed By: #### C MP, T4, TSH #### [facility] [address] [place] [address] Dr. Juan Argueta IG % 0.2 % Normal 0.0-0.5 [facility] Comment on above: Performed By: #### C MP, T4, TSH #### [facility] [address] [place] [address] Dr. Juan Argueta LYMPH # 1.3 103/ul Normal 1.2-3.8 [facility] Comment on above: Performed By: #### C MP, T4, TSH #### [facility] [address] [place] [address] Dr. Juan Argueta Lymphocytes/100 WBC (Bld) 25.1 % Normal 20.5-60.0 [facility] Comment on above: Performed By: #### C MP, T4, TSH #### [facility] [address] [place] [address] Dr. Juan Argueta MANUAL DIFF REQ NO Normal [facility] Comment on above: Performed By: #### C MP, T4, TSH #### [facility] [address] [place] [address] Dr. Juan Argueta MCH (RBC) [Entitic mass] 28.3 pg Normal 25.9-34.0 [facility] Comment on above: Performed By: #### C MP, T4, TSH #### [facility] [address] [place] [address] Dr. Juan Argueta MCHC (RBC) [Mass/Vol] 33.9 g/dL Normal 29.9-35.2 [facility] Comment on above: Performed By: #### C MP, T4, TSH #### [facility] [address] [place] [address] Dr. Juan Argueta MCV (RBC) [Entitic vol] 83.3 fL Normal 80.0-94.0 [facility] Comment on above: Performed By: #### C MP, T4, TSH #### [facility] [address] [place] [address] Dr. Juan Argueta MONO # 0.3 103/ul Normal 0.3-0.8 [facility] Comment on above: Performed By: #### C MP, T4, TSH #### [facility] [address] [place] [address] Dr. Juan Argueta Monocytes/100 WBC (Bld) 5.9 % Normal 1.7-12.0 [facility] Comment on above: Performed By: #### C MP, T4, TSH #### [facility] [address] [place] [address] Dr. Juan Argueta NEUT # 3.3 103/ul Normal 1.4-6.5 [facility] Comment on above: Performed By: #### C MP, T4, TSH #### [facility] [address] [place] [address] Dr. Juan Argueta Neutrophils/100 WBC (Bld) 65.4 % Normal 43.0-75.0 [facility] Comment on above: Performed By: #### C MP, T4, TSH #### [facility] [address] [place] [address] Dr. Juan Argueta Platelet mean volume (Bld) [Entitic vol] 9.5 fL Normal 9.5-13.5 [facility] Comment on above: Performed By: #### C MP, T4, TSH #### [facility] [address] [place] [address] Dr. Juan Argueta PLT 244 103/ul Normal 150-450 [facility] Comment on above: Performed By: #### C MP, T4, TSH #### [facility] [address] [address] [address] Juan Argueta RBC 5.45 106/ul Normal 4.70-6.10 [facility] Comment on above: Performed By: #### C MP, T4, TSH #### [facility] [address] [address] [address] Juan Argueta WBC 5.1 103/ul Normal 4.0-11.0 [facility] Comment on above: Performed By: #### C MP, T4, TSH #### [facility] [address] [address] [address] Juan Argueta GLYCOHEMOGLOBIN A1Con 2022 ADA RECOMMENDATION SEE BELOW Normal [facility] Comment on above: Result Comment: ADA RECOMMENDED LIMIT 4.0 - 6.0 ADA THERAPEUTIC TARGET < 7.0 ACTION SUGGESTED > 7.0 Performed By: #### C MP, T4, TSH #### [facility] [address] [address] [address] Juan Argueta Glucose [Mass/Vol] 100 mg/dL Normal [facility] Comment on above: Performed By: #### C MP, T4, TSH #### [facility] [address] [address] [address] Juan Argueta HbA1c (Bld) [Mass fraction] 5.1 % Normal 4.5-6.2 [facility] Comment on above: Performed By: #### C MP, T4, TSH #### [facility] [address] [address] [address] Juan Argueta PROF 14(COMP METB)on 023 Albumin [Mass/Vol] 4.2 g/dL Normal 3.4-5.0 [facility] Comment on above: Performed By: #### C MP, T4, TSH #### [facility] [address] [place] [address] Dr. Juan Argueta Albumin/Globulin [Mass ratio] 1.0 {ratio} Normal [facility] Comment on above: Performed By: #### C MP, T4, TSH #### [facility] [address] [address] [address] Juan Argueta ALP [Catalytic activity/Vol] 152 U/L Critically high 46-116 [facility] Comment on above: Performed By: #### C MP, T4, TSH #### [facility] [address] [address] [address] Juan Argueta ALT [Catalytic activity/Vol] 34 U/L Normal 16-63 [facility] Comment on above: Performed By: #### C MP, T4, TSH #### [facility] [address] [address] [address] Juan Argueta Anion gap [Moles/Vol] 12.0 mmol/L Normal [facility] Comment on above: Performed By: #### C MP, T4, TSH #### [facility] [address] [address] [address] Juan Argueta AST [Catalytic activity/Vol] 31 U/L Normal 15-37 [facility] Comment on above: Performed By: #### C MP, T4, TSH #### [facility] [address] [address] [address] Juan Argueta Bilirubin [Mass/Vol] 0.2 mg/dL Normal 0.2-1.0 [facility] Comment on above: Performed By: #### C MP, T4, TSH #### [facility] [address] [address] [address] Juan Argueta Calcium [Mass/Vol] 9.4 mg/dL Normal 8.5-10.1 [facility] Comment on above: Performed By: #### C MP, T4, TSH #### [facility] [address] [address] [address] Juan Argueta Chloride [Moles/Vol] 104 mmol/L Normal 98-107 [facility] Comment on above: Performed By: #### C MP, T4, TSH #### [facility] [address] [address] [address] Juan Argueta CO2 [Moles/Vol] 26.5 mmol/L Normal 21.0-32.0 [facility] Comment on above: Performed By: #### C MP, T4, TSH #### [facility] [address] [address] [address] Juan Argueta Creatinine [Mass/Vol] 1.60 mg/dL Critically high 0.70-1.30 [facility] Comment on above: Performed By: #### C MP, T4, TSH #### [facility] [address] [address] [address] Juan Argueta EGFR-AF LITHUANIAN >60 Normal >=60 [facility] Comment on above: Performed By: #### C MP, T4, TSH #### [facility] [address] [address] [address] Juan Argueta EGFR-NON AF LITHUANIAN 51 mL/min/1.73m2 Critically low >=60 [facility] Comment on above: Performed By: #### C MP, T4, TSH #### [facility] [address] [address] [address] Juan Argueta Globulin (S) [Mass/Vol] 4.1 g/dL Normal [facility] Comment on above: Performed By: #### C MP, T4, TSH #### [facility] [address] [address] [address] Juan Argueta Glucose [Mass/Vol] 95 mg/dL Normal 74-106 [facility] Comment on above: Performed By: #### C MP, T4, TSH #### [facility] [address] [address] [address] Juan Argueta Potassium [Moles/Vol] 4.5 mmol/L Normal 3.5-5.1 [facility] Comment on above: Performed By: #### C MP, T4, TSH #### [facility] [address] [address] [address] Juan Argueta Protein [Mass/Vol] 8.3 g/dL Critically high 6.4-8.[address] [facility] Comment on above: Performed By: #### C MP, T4, TSH #### [facility] [address] [address] [address] Juan Argueta Sodium [Moles/Vol] 138 mmol/L Normal 136-145 [facility] Comment on above: Performed By: #### C MP, T4, TSH #### [facility] [address] [address] [address] Juan Argueta Urea nitrogen [Mass/Vol] 22.0 mg/dL Critically high 7.0-18.0 [facility] Comment on above: Performed By: #### C MP, T4, TSH #### [facility] [address] [address] [address] Juan Argueta Urea nitrogen/Creatinine [Mass ratio] 13.8 mg/mg Normal [facility] Comment on above: Performed By: #### C MP, T4, TSH #### [facility] [address] [place] [address] Dr. Juan Argueta T4on 01-18-2023 T4 [Mass/Vol] 3.20 ug/dL Critically low 4.50-12.10 [facility] Comment on above: Performed By: #### C MP, T4, TSH #### [facility] [address] [place] [address] Dr. Juan Argueta TSHon 01-18-2023 TSH 2.037 uIU/mL Normal 0.358-3.740 [facility] Comment on above: Performed By: #### C MP, T4, TSH #### [facility] [address] [place] [address] Dr. Juan Argueta US THYROIDon 01-04-2023 US [...] by: LUIS FERMIN Date: 2023-01-04 15:52 Normal [facility] OSMOLALITYon 10-06-2022 Osmolality [Osmolality] 307 mosm/kg Critically high 275-295 [facility] Comment on above: Performed By: #### C MP, T4, TSH #### [facility] [address] [address] [address] Juan Argueta T3, TOTAL (TRIIODOTHYRONINE) on 10-05-2022 T3, TOTAL 52 ng/dL Critically low 71-180 [facility] Comment on above: Performed By: #### C MP, T4, TSH #### [facility] [address] [address] [address] Juan Argueta GLYCOHEMOGLOBIN A1Con 2021 ADA RECOMMENDATION SEE BELOW Normal [facility] Comment on above: Result Comment: ADA RECOMMENDED LIMIT 4.0 - 6.0 ADA THERAPEUTIC TARGET < 7.0 ACTION SUGGESTED > 7.0 Performed By: #### C MP, T4, TSH #### [facility] [address] [place] [address] Dr. Juan Argueta Glucose [Mass/Vol] 105 mg/dL Normal [facility] Comment on above: Performed By: #### C MP, T4, TSH #### [facility] [address] [place] [address] Dr. Juan Argueta HbA1c (Bld) [Mass fraction] 5.3 % Normal 4.5-6.2 [facility] Comment on above: Performed By: #### C MP, T4, TSH #### [facility] [address] [place] [address] Dr. Juan Argueta PROF 14(COMP METB)on 022 Albumin [Mass/Vol] 4.2 g/dL Normal 3.4-5.0 [facility] Comment on above: Performed By: #### T SH, CMP #### [facility] [address] [place] [address] Dr. Juan Argueta Albumin/Globulin [Mass ratio] 1.1 {ratio} Normal [facility] Comment on above: Performed By: #### T SH, CMP #### [facility] [address] [place] [address] Dr. Juan Argueta ALP [Catalytic activity/Vol] 122 U/L Critically high 46-116 [facility] Comment on above: Performed By: #### T SH, CMP #### [facility] [address] [address] [address] Juan Argueta ALT [Catalytic activity/Vol] 53 U/L Normal 16-63 [facility] Comment on above: Performed By: #### T SH, CMP #### [facility] [address] [address] [address] Juan Argueta Anion gap [Moles/Vol] 12.4 mmol/L Normal [facility] Comment on above: Performed By: #### T SH, CMP #### [facility] [address] [address] [address] Juan Argueta AST [Catalytic activity/Vol] 22 U/L Normal 15-37 [facility] Comment on above: Performed By: #### T SH, CMP #### [facility] [address] [place] [address] Dr. Juan Argueta Bilirubin [Mass/Vol] 0.2 mg/dL Normal 0.2-1.0 [facility] Comment on above: Performed By: #### T SH, CMP #### [facility] [address] [address] [address] Juan Argueta Calcium [Mass/Vol] 9.6 mg/dL Normal 8.5-10.1 [facility] Comment on above: Performed By: #### T SH, CMP #### [facility] [address] [place] [address] Dr. Juan Argueta Chloride [Moles/Vol] 108 mmol/L Critically high 98-107 [facility] Comment on above: Performed By: #### T SH, CMP #### [facility] [address] [address] [address] Juan Argueta CO2 [Moles/Vol] 28.8 mmol/L Normal 21.0-32.0 [facility] Comment on above: Performed By: #### T SH, CMP #### [facility] [address] [address] [address] Juan Argueta Creatinine [Mass/Vol] 1.77 mg/dL Critically high 0.70-1.30 [facility] Comment on above: Performed By: #### T SH, CMP #### [facility] [address] [address] [address] Juan Argueta EGFR-AF LITHUANIAN 55 mL/min/1.73m2 Critically low >=60 [facility] Comment on above: Performed By: #### T SH, CMP #### [facility] [address] [address] [address] Juan Argueta EGFR-NON AF LITHUANIAN 45 mL/min/1.73m2 Critically low >=60 [facility] Comment on above: Performed By: #### T SH, CMP #### [facility] [address] [address] [address] Juan Argueta Globulin (S) [Mass/Vol] 3.7 g/dL Normal [facility] Comment on above: Performed By: #### T SH, CMP #### [facility] [address] [address] [address] Juan Argueta Glucose [Mass/Vol] 94 mg/dL Normal 74-106 [facility] Comment on above: Performed By: #### T SH, CMP #### [facility] [address] [address] [address] Juan Argueta Potassium [Moles/Vol] 4.2 mmol/L Normal 3.5-5.1 [facility] Comment on above: Performed By: #### T SH, CMP #### [facility] [address] [address] [address] Juan Argueta Protein [Mass/Vol] 7.9 g/dL Normal 6.4-8.2 [facility] Comment on above: Performed By: #### T SH, CMP #### [facility] [address] [address] [address] Juan Argueta Sodium [Moles/Vol] 145 mmol/L Normal 136-145 [facility] Comment on above: Performed By: #### T SH, CMP #### [facility] [address] [address] [address] Juan Argueta Urea nitrogen [Mass/Vol] 28.0 mg/dL Critically high 7.0-18.0 [facility] Comment on above: Performed By: #### T SH, CMP #### [facility] [address] [place] [address] Dr. Juan Argueta Urea nitrogen/Creatinine [Mass ratio] 15.8 mg/mg Normal [facility] Comment on above: Performed By: #### T SH, CMP #### [facility] [address] [place] [address] Dr. Juan Argueta TSHon 10-04-2022 TSH 1.456 uIU/mL Normal 0.358-3.740 [facility] Comment on above: Performed By: #### T SH, CMP #### [facility] [address] [place] [address] Dr. Juan Argueta VITAMIN D 25 OHon 10-04-2022 VIT D 25-OH 51.1 ng/mL Normal [facility] Comment on above: Performed By: #### C MP, T4, TSH #### [facility] [address] [place] [address] Dr. Juan Argueta VIT D RANGES SEE BELOW Normal [facility] Comment on above: Result Comment: <20 ng/mL Vit D deficient 20 - <30 ng/mL Vit D insufficient 30 - 100 ng/mL Vit D sufficient >100 ng/mL Potential Toxicity Performed By: #### C MP, T4, TSH #### [facility] [address] [place] [address] Dr. Juan Argueta Follow Up (Endocrinology)on 09-30-2022 Follow Up (Endocrinology) Diagnoses/Problems Assessed Low vitamin D level (790.6) (R79.89) Hypothyroidism (244.9) (E03.9) Hypocalcemia (275.41) (E83.51) Multinodular goiter (241.1) (E04.2) Orders Hypocalcemia, Hypothyroidism, Low vitamin D level, Multinodular goiter Comprehensive Metabolic Panel; Status:Active; Requested for:30Sep2022; Perform:Lab Services - Lab To Draw (Blood Test); Due:29Dec2022;Ordered ; For:Hypocalcemia, Hypothyroidism, Low vitamin D level, Multinodular goiter; Ordered By:Erin Ogden; Hemoglobin A1C; Status:Active; Requested for:30Sep2022; Perform:Lab Services - Lab To Draw (Blood Test); Due:[id number];Ordered ; For:Hypocalcemia, Hypothyroidism, Low vitamin D level, Multinodular goiter; Ordered By:Erin Ogden; Osmolality, Serum; Status:Active; Requested for:30Sep2022; Perform:Lab Services - Lab To Draw (Blood Test); Due:[id number];Ordered ; For:Hypocalcemia, Hypothyroidism, Low vitamin D level, Multinodular goiter; Ordered By:Erin Ogden; Osmolality, Urine Spot; Status:Active; Requested for:30Sep2022; Perform:Lab Services - Lab To Draw (Non-Blood Test); Due:[id number];Ordered ; For:Hypocalcemia, Hypothyroidism, Low vitamin D level, Multinodular goiter; Ordered By:Erin Ogden; TSH WITH REFLEX TO FREE T4 IF ABNORMAL; Status:Active; Requested for:30Sep2022; Perform:Lab Services - Lab To Draw (Blood Test); Due:[id number];Ordered ; For:Hypocalcemia, Hypothyroidism, Low vitamin D level, Multinodular goiter; Ordered By:Erin Ogden; Ultrasound Thyroid; Status:Hold For - Scheduling; Requested for:30Sep2022; Perform: Radiology Services Imaging; Due:[id number];Ordered ; For:Hypocalcemia, Hypothyroidism, Low vitamin D level, Multinodular goiter; Ordered By:Erin Ogden; Radiologist to Determine Optimal Study : Y What are the patient's signs and symptoms? : f/u Vitamin D 25-Hydroxy; Status:Active; Requested for:30Sep2022; Perform:Lab Services - Lab To Draw (Blood Test); Due:[id number];Ordered ; For:Hypocalcemia, Hypothyroidism, Low vitamin D level, [...] low vitamin d levels. History of Present Pxupbyt89 yo male with severe mental retardation, autism, bipolar disorder,severe psychosis,GERD, HTN , hypercalcemia [facility] 12/15 [facility] with exacerbation by lithium intake (that has [...] then eats a day after. not on [place] 300 mg , did not changed since last visit as per sheet . guardian is brother Yogesh nb [phone] seeing GI , EGD was fine. no acute issues. is losing weight again , had a lip biopsy and infected ulcer is healed, weight loss has stopped, on Lt4 50 mcgq day and we need recent albs, slightly more agitated , had a fall with bruise on his face , [place] physician is following. no changes in neuro [...] 09-20-2022 BASO # 0.1 103/ul Normal 0.0-0.1 [facility] Comment on above: Performed By: #### C MP, T4, TSH #### [facility] [address] [place] [address] Dr. Juan Argueta Basophils/100 WBC (Bld) 1.2 % Normal 0.2-2.0 [facility] Comment on above: Performed By: #### C MP, T4, TSH #### [facility] [address] [place] [address] Dr. Juan Argueta EO # 0.2 103/ul Normal 0.0-0.7 [facility] Comment on above: Performed By: #### C MP, T4, TSH #### [facility] [address] [place] [address] Dr. Juan Argueta Eosinophils/100 WBC (Bld) 5.0 % Normal 0.9-7.0 [facility] Comment on above: Performed By: #### C MP, T4, TSH #### [facility] [address] [place] [address] Dr. Juan Argueta Erythrocyte distribution width (RBC) [Ratio] 12.8 % Normal 11.0-15.0 [facility] Comment on above: Performed By: #### C MP, T4, TSH #### [facility] [address] [place] [address] Dr. Juan Argueta Hematocrit (Bld) [Volume fraction] 42.0 % Normal 42.0-54.0 [facility] Comment on above: Performed By: #### C MP, T4, TSH #### [facility] [address] [place] [address] Dr. Juan Argueta Hemoglobin (Bld) [Mass/Vol] 14.0 g/dL Normal 14.0-18.0 [facility] Comment on above: Performed By: #### C MP, T4, TSH #### [facility] [address] [place] [address] Dr. Juan Argueta IG # 0.01 10e3/ul Normal 0.00-0.03 [facility] Comment on above: Performed By: #### C MP, T4, TSH #### [facility] [address] [address] [address] Juan Argueta IG % 0.2 % Normal 0.0-0.5 [facility] Comment on above: Performed By: #### C MP, T4, TSH #### [facility] [address] [place] [address] Dr. Juan Argueta LYMPH # 1.5 103/ul Normal 1.2-3.8 [facility] Comment on above: Performed By: #### C MP, T4, TSH #### [facility] [address] [place] [address] Dr. Juan Argueta Lymphocytes/100 WBC (Bld) 34.9 % Normal 20.5-60.0 [facility] Comment on above: Performed By: #### C MP, T4, TSH #### [facility] [address] [place] [address] Dr. Juan Argueta MANUAL DIFF REQ NO Normal [facility] Comment on above: Performed By: #### C MP, T4, TSH #### [facility] [address] [place] [address] Dr. Juan Argueta MCH (RBC) [Entitic mass] 29.0 pg Normal 25.9-34.0 [facility] Comment on above: Performed By: #### C MP, T4, TSH #### [facility] [address] [place] [address] Dr. Juan Argueta MCHC (RBC) [Mass/Vol] 33.3 g/dL Normal 29.9-35.2 [facility] Comment on above: Performed By: #### C MP, T4, TSH #### [facility] [address] [place] [address] Dr. Juan Argueta MCV (RBC) [Entitic vol] 87.0 fL Normal 80.0-94.0 [facility] Comment on above: Performed By: #### C MP, T4, TSH #### [facility] [address] [place] [address] Dr. Juan Argueta MONO # 0.3 103/ul Normal 0.3-0.8 [facility] Comment on above: Performed By: #### C MP, T4, TSH #### [facility] [address] [place] [address] Dr. Juan Argueta Monocytes/100 WBC (Bld) 6.8 % Normal 1.7-12.0 [facility] Comment on above: Performed By: #### C MP, T4, TSH #### [facility] [address] [place] [address] Dr. Juan Argueta NEUT # 2.2 103/ul Normal 1.4-6.5 [facility] Comment on above: Performed By: #### C MP, T4, TSH #### [facility] [address] [place] [address] Dr. Juan Argueta Neutrophils/100 WBC (Bld) 51.9 % Normal 43.0-75.0 [facility] Comment on above: Performed By: #### C MP, T4, TSH #### [facility] [address] [place] [address] Dr. Juan Argueta Platelet mean volume (Bld) [Entitic vol] 10.1 fL Normal 9.5-13.5 [facility] Comment on above: Performed By: #### C MP, T4, TSH #### [facility] [address] [place] [address] Dr. Juan Argueta PLT 252 103/ul Normal 150-450 [facility] Comment on above: Performed By: #### C MP, T4, TSH #### [facility] [address] [place] [address] Dr. Juan Argueta RBC 4.83 106/ul Normal 4.70-6.10 [facility] Comment on above: Performed By: #### C MP, T4, TSH #### [facility] [address] [place] [address] Dr. Juan Argueta WBC 4.2 103/ul Normal 4.0-11.0 [facility] Comment on above: Performed By: #### C MP, T4, TSH #### [facility] [address] [place] [address] Dr. Juan Argueta FREE T4on 09-20-2022 Free T4 [Mass/Vol] 0.50 ng/dL Critically low 0.76-1.46 [facility] Comment on above: Performed By: #### B 12FOL, FT4 #### [facility] [address] [place] [address] Dr. Juan Argueta PROF 14(COMP METB)on 022 Albumin [Mass/Vol] 4.1 g/dL Normal 3.4-5.0 [facility] Comment on above: Performed By: #### C MP, T4, TSH #### [facility] [address] [place] [address] Dr. Juan Argueta Albumin/Globulin [Mass ratio] 1.1 {ratio} Normal [facility] Comment on above: Performed By: #### C MP, T4, TSH #### [facility] [address] [place] [address] Dr. Juan Argueta ALP [Catalytic activity/Vol] 107 U/L Normal 46-116 [facility] Comment on above: Performed By: #### C MP, T4, TSH #### [facility] [address] [place] [address] Dr. Juan Argueta ALT [Catalytic activity/Vol] 79 U/L Critically high 16-63 [facility] Comment on above: Performed By: #### C MP, T4, TSH #### [facility] [address] [place] [address] Dr. Juan Argueta Anion gap [Moles/Vol] 8.4 mmol/L Normal [facility] Comment on above: Performed By: #### C MP, T4, TSH #### [facility] [address] [place] [address] Dr. Juan Argueta AST [Catalytic activity/Vol] 32 U/L Normal 15-37 [facility] Comment on above: Performed By: #### C MP, T4, TSH #### [facility] [address] [address] [address] Juan Argueta Bilirubin [Mass/Vol] 0.2 mg/dL Normal 0.2-1.0 [facility] Comment on above: Performed By: #### C MP, T4, TSH #### [facility] [address] [place] [address] Dr. Juan Argueta Calcium [Mass/Vol] 9.2 mg/dL Normal 8.5-10.1 [facility] Comment on above: Performed By: #### C MP, T4, TSH #### [facility] [address] [place] [address] Dr. Juan Argueta Chloride [Moles/Vol] 104 mmol/L Normal 98-107 [facility] Comment on above: Performed By: #### C MP, T4, TSH #### [facility] [address] [place] [address] Dr. Juan Argueta CO2 [Moles/Vol] 30.2 mmol/L Normal 21.0-32.0 [facility] Comment on above: Performed By: #### C MP, T4, TSH #### [facility] [address] [place] [address] Dr. Juan Argueta Creatinine [Mass/Vol] 1.67 mg/dL Critically high 0.70-1.30 [facility] Comment on above: Performed By: #### C MP, T4, TSH #### [facility] [address] [place] [address] Dr. Juan Argueta EGFR-AF LITHUANIAN 58 mL/min/1.73m2 Critically low >=60 [facility] Comment on above: Performed By: #### C MP, T4, TSH #### [facility] [address] [place] [address] Dr. Juan Argueta EGFR-NON AF LITHUANIAN 48 mL/min/1.73m2 Critically low >=60 [facility] Comment on above: Performed By: #### C MP, T4, TSH #### [facility] [address] [address] [address] Juan Argueta Globulin (S) [Mass/Vol] 3.6 g/dL Normal [facility] Comment on above: Performed By: #### C MP, T4, TSH #### [facility] [address] [address] [address] Juan Argueta Glucose [Mass/Vol] 94 mg/dL Normal 74-106 [facility] Comment on above: Performed By: #### C MP, T4, TSH #### [facility] [address] [place] [address] Dr. Juan Argueta Potassium [Moles/Vol] 4.6 mmol/L Normal 3.5-5.1 [facility] Comment on above: Performed By: #### C MP, T4, TSH #### [facility] [address] [place] [address] Dr. Juan Argueta Protein [Mass/Vol] 7.7 g/dL Normal 6.4-8.2 [facility] Comment on above: Performed By: #### C MP, T4, TSH #### [facility] [address] [place] [address] Dr. Juan Argueta Sodium [Moles/Vol] 138 mmol/L Normal 136-145 [facility] Comment on above: Performed By: #### C MP, T4, TSH #### [facility] [address] [place] [address] Dr. Juan Argueta Urea nitrogen [Mass/Vol] 28.0 mg/dL Critically high 7.0-18.0 [facility] Comment on above: Performed By: #### C MP, T4, TSH #### [facility] [address] [place] [address] Dr. Juan Argueta Urea nitrogen/Creatinine [Mass ratio] 16.8 mg/mg Normal [facility] Comment on above: Performed By: #### C MP, T4, TSH #### [facility] [address] [place] [address] Dr. Juan Argueta TSHon 09-20-2022 TSH 1.895 uIU/mL Normal 0.358-3.740 [facility] Comment on above: Performed By: #### C MP, T4, TSH #### [facility] [address] [place] [address] Dr. Juan Argueta VIT B12 AND FOLATEon 022 Cobalamin (Vitamin B12) [Mass/Vol] 350.0 pg/mL Normal 193.0-986.0 [facility] Comment on above: Performed By: #### B 12FOL, FT4 #### [facility] [address] [place] [address] Dr. Juan Argueta FOLATE 16.40 ng/mL Normal 8.60-58.90 [facility] Comment on above: Performed By: #### B 12FOL, FT4 #### [facility] [address] [place] [address] Dr. Juan Argueta VITAMIN D 25 OHon 09-20-2022 VIT D 25-OH 49.9 ng/mL Normal [facility] Comment on above: Performed By: #### V ITAD #### [facility] [address] [place] [address] Dr. Juan Argueta VIT D RANGES SEE BELOW Normal [facility] Comment on above: Result Comment: <20 ng/mL Vit D deficient 20 - <30 ng/mL Vit D insufficient 30 - 100 ng/mL Vit D sufficient >100 ng/mL Potential Toxicity Performed By: #### V ITAD #### [facility] [address] [place] [address] Dr. Juan Argueta CBC AUTO DIFFon 09-10-2022 BASO # 0.0 103/ul Normal 0.0-0.1 [facility] Comment on above: Performed By: #### C BC #### [facility] [address] [place] [address] Dr. Juan Argueta Basophils/100 WBC (Bld) 0.3 % Normal 0.2-2.0 [facility] Comment on above: Performed By: #### C BC #### [facility] [address] [place] [address] Dr. Juan Argueta EO # 0.1 103/ul Normal 0.0-0.7 [facility] Comment on above: Performed By: #### C BC #### [facility] [address] [place] [address] Dr. Juan Argueta Eosinophils/100 WBC (Bld) 1.5 % Normal 0.9-7.0 [facility] Comment on above: Performed By: #### C BC #### [facility] [address] [place] [address] Dr. Juan Argueta Erythrocyte distribution width (RBC) [Ratio] 12.8 % Normal 11.0-15.0 [facility] Comment on above: Performed By: #### C BC #### [facility] [address] [place] [address] Dr. Juan Argueta Hematocrit (Bld) [Volume fraction] 38.6 % Critically low 42.0-54.0 [facility] Comment on above: Performed By: #### C BC #### [facility] [address] [place] [address] Dr. Juan Argueta Hemoglobin (Bld) [Mass/Vol] 13.2 g/dL Critically low 14.0-18.0 [facility] Comment on above: Performed By: #### C BC #### [facility] [address] [place] [address] Dr. Juan Argueta IG # 0.02 10e3/ul Normal 0.00-0.03 [facility] Comment on above: Performed By: #### C BC #### [facility] [address] [place] [address] Dr. Juan Argueta IG % 0.2 % Normal 0.0-0.5 [facility] Comment on above: Performed By: #### C BC #### [facility] [address] [place] [address] Dr. Juan Argueta LYMPH # 0.9 103/ul Critically low 1.2-3.8 [facility] Comment on above: Performed By: #### C BC #### [facility] [address] [place] [address] Dr. Juan Argueta Lymphocytes/100 WBC (Bld) 10.0 % Critically low 20.5-60.0 [facility] Comment on above: Performed By: #### C BC #### [facility] [address] [place] [address] Dr. Juan Argueat MANUAL DIFF REQ NO Normal [facility] Comment on above: Performed By: #### C BC #### [facility] [address] [place] [address] Dr. Juan Argueta MCH (RBC) [Entitic mass] 29.2 pg Normal 25.9-34.0 [facility] Comment on above: Performed By: #### C BC #### [facility] [address] [place] [address] Dr. Juan Argueta MCHC (RBC) [Mass/Vol] 34.2 g/dL Normal 29.9-35.2 [facility] Comment on above: Performed By: #### C BC #### [facility] [address] [place] [address] Dr. Juan Argueta MCV (RBC) [Entitic vol] 85.4 fL Normal 80.0-94.0 [facility] Comment on above: Performed By: #### C BC #### [facility] [address] [place] [address] Dr. Juan Argueta MONO # 0.5 103/ul Normal 0.3-0.8 [facility] Comment on above: Performed By: #### C BC #### [facility] [address] [place] [address] Dr. Juan Argueta Monocytes/100 WBC (Bld) 5.3 % Normal 1.7-12.0 [facility] Comment on above: Performed By: #### C BC #### [facility] [address] [place] [address] Dr. Juan Argueta NEUT # 7.4 103/ul Critically high 1.4-6.5 [facility] Comment on above: Performed By: #### C BC #### [facility] [address] [place] [address] Dr. Juan Argueta Neutrophils/100 WBC (Bld) 82.7 % Critically high 43.0-75.0 [facility] Comment on above: Performed By: #### C BC #### [facility] [address], [place] [address] Dr. Juan Argueta Platelet mean volume (Bld) [Entitic vol] 9.8 fL Normal 9.5-13.5 [facility] Comment on above: Performed By: #### C BC #### [facility] [address] [id number] Juan Argueta PLT 226 103/ul Normal 150-450 [facility] Comment on above: Performed By: #### C BC #### [facility] [address] [address] [address] Juan Argueta RBC 4.52 106/ul Critically low 4.70-6.10 [facility] Comment on above: Performed By: #### C BC #### [facility] [address] [address] [address] Juan Argueta WBC 8.9 103/ul Normal 4.0-11.0 [facility] Comment on above: Performed By: #### C BC #### [facility] [address], [place] [address] HEAD WO CONon [...] JON PARKS Date: 2022-09-10 12:09 Normal [facility] PROF 14(COMP METB)on 09-10- 022 Albumin [Mass/Vol] 4.1 g/dL Normal 3.4-5.0 [facility] Comment on above: Performed By: #### C MP #### [facility] [address] [place] [address] Dr. Juan Argueta Albumin/Globulin [Mass ratio] 1.2 {ratio} Normal [facility] Comment on above: Performed By: #### C MP #### [facility] [address] [place] [address] Dr. Juan Argueta ALP [Catalytic activity/Vol] 100 U/L Normal 46-116 [facility] Comment on above: Performed By: #### C MP #### [facility] [address] [place] [address] Dr. Juan Argueta ALT [Catalytic activity/Vol] 39 U/L Normal 16-63 [facility] Comment on above: Performed By: #### C MP #### [facility] [address] [place] [address] Dr. Juan Argueta Anion gap [Moles/Vol] 16.5 mmol/L Normal [facility] Comment on above: Performed By: #### C MP #### [facility] [address] [place] [address] Dr. Juan Argueta AST [Catalytic activity/Vol] 35 U/L Normal 15-37 [facility] Comment on above: Performed By: #### C MP #### [facility] [address] [place] [address] Dr. Juan Argueta Bilirubin [Mass/Vol] 0.3 mg/dL Normal 0.2-1.0 [facility] Comment on above: Performed By: #### C MP #### [facility] [address] [place] [address] Dr. Juan Argueta Calcium [Mass/Vol] 8.2 mg/dL Critically low 8.5-10.1 [facility] Comment on above: Performed By: #### C MP #### [facility] [address] [place] [address] Dr. Juan Argueta Chloride [Moles/Vol] 101 mmol/L Normal 98-107 [facility] Comment on above: Performed By: #### C MP #### [facility] [address] [address] [address] Juan Argueta CO2 [Moles/Vol] 18.8 mmol/L Critically low 21.0-32.0 [facility] Comment on above: Performed By: #### C MP #### [facility] [address] [address] [address] Juan Argueta Creatinine [Mass/Vol] 1.37 mg/dL Critically high 0.70-1.30 [facility] Comment on above: Performed By: #### C MP #### [facility] [address] [address] [address] Juan Argueta EGFR-AF LITHUANIAN >60 Normal >=60 [facility] Comment on above: Performed By: #### C MP #### [facility] [address] [place] [address] Dr. Juan Argueta EGFR-NON AF LITHUANIAN >60 Normal >=60 [facility] Comment on above: Performed By: #### C MP #### [facility] [address] [place] [address] Dr. Juan Argueta Globulin (S) [Mass/Vol] 3.3 g/dL Normal [facility] Comment on above: Performed By: #### C MP #### [facility] [address] [address] [address] Juan Argueta Glucose [Mass/Vol] 103 mg/dL Normal 74-106 [facility] Comment on above: Performed By: #### C MP #### [facility] [address] [place] [address] Dr. Juan Argueta Potassium [Moles/Vol] 4.3 mmol/L Normal 3.5-5.1 [facility] Comment on above: Performed By: #### C MP #### [facility] [address] [place] [address] Dr. Juan Argueta Protein [Mass/Vol] 7.4 g/dL Normal 6.4-8.2 [facility] Comment on above: Performed By: #### C MP #### [facility] [address], [place] [address] Dr. Juan Argueta Sodium [Moles/Vol] 132 mmol/L Critically low 136-145 Th e [facility] Comment on above: Performed By: #### C MP #### [facility] [id number] Juan Argueta Urea nitrogen [Mass/Vol] 23.0 mg/dL Critically high 7.0-18.0 [facility] Comment on above: Performed By: #### C MP #### [facility] [address], [place] [address] Dr. Juan Argueta Urea nitrogen/Creatinine [Mass ratio] 16.8 mg/mg Normal [facility] Comment on above: Performed By: #### C MP #### [facility] [id number] Juan Argueta CT HEAD WO CONon [...] by: RISA PENNY Date: 2022-07-19 10:21 Normal [facility] Follow Up (Endocrinology)on 03-25-2022 Follow Up (Endocrinology) [...] Lab To Draw (Blood Test); Due:[id number];Ordered ; For: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, Hypocalcemia, [...] Services - Lab To Draw (Blood Test); Due:[id number];Ordered ; For:Hypothyroidism, Low vitamin D level; Ordered By:Erin Ogden; TSH - Thyroid Stimulating Hormone, Serum; Status:Active; Requested for:[id number]; Perform:Lab Services - Lab To Draw (Blood Test); Due:[id number];Ordered ; For:Hypothyroidism, Low vitamin D level; Ordered [...] visit hypothyrpidism and hypercalcemia History of Present Bbwdfli89 yo male with severe mental retardation, autism, [...] then eats a day after. not on [place] 300 mg , did not changed since last visit as per sheet . guardian is brother Yogesh nb [phone] seeing GI , EGD was fine. no acute issues. is losing weight again , had a lip biopsy and infected ulcer is healed, weight loss has stopped, on Lt4 50 mcgq day and we need recent albs, slightly more agitated , had a fall with bruise on his face , [place] physician is following. no changes in neuro exam. TSH was normal on labs , , calcium and sodium normal, no acute issues (more content not included)... Normal [facility] XR MODIFIED BARIUM SWALLOWon 09-11-2020 No radiographic evidence of tracheal aspiration. For further information as well as dietary recommendations, please refer to the speech pathologist's detailed report. C2C Link Workstation ID: [id number] [facility] EXAMINATION: XR MODIFIED BARIUM SWALLOW HISTORY: [...] evidence of penetration or tracheal aspiration. [facility] Interface, Rad In LedgerX Speechq - 09/11/2020 10:03 PM EDT EXAMINATION: [...] refer to the speech pathologist's detailed report. C2C Link Workstation ID: [id number] [facility] XR MODIFIED BARIUM SWALLOW EXAMINATION: XR [...] refer to the speech pathologist's detailed report. C2C Link Workstation ID: [id number] Dictated by: BRANDAN CERVANTES on MonSep 11, 2020 2:10:21 PM EDT Transcribed by: BONIFACIO IBARRA on MonSep 11, 2020 2:53:24 PM EDT Finalized by: BRANDAN CERVANTSE on MonSep 11, 2020 10:00:27 PM EDT Normal [facility] Comment on above: Order Comment: Miriam vieyra orders Injury/Trauma or Illness?:Illness/Other How long have you had these symptoms (acute/chronic)?:Chronic Reason for exam?:Pharyngeal dysphagia Type of Exam?:Ongoing Additional signs and symptoms?:Pharyngeal dysphagia Fluoro time in minutes:1.05 Fluoro dose in mGy?:36.08 COVID-19, MOLECULARon 2019 SARS-COV-2 (CEPHEID) Not Detected Normal Not Detected [facility] Comment on above: Result Comment: This test was performed under the FDA's Emergency Use Authorization (EUA). Testing was performed using the Xpert Xpress SARS-CoV-2 Cepheid assay on the GeneXpert Dx platform. This test has not been approved for use in asymptomatic patients and its performance in this patient population has not been evaluated. Negative results do not rule out the presence of SARS-CoV-2/COVID-19. Fact sheets for this EUA can be found at the following links: For Healthcare Providers: https://www.fda.gov/media/990478/download For Patients: https://www.fda.gov/media/165534/download Performed By: #### L [id number] #### [facility] [address] Rustam Morillo M.D. [id number] CT ABDOMEN PELVIS W IV CONTR Vicky [...] Grabiel Aleman MD 08/09/19 Final result Normal [facility] Surgical Pathologyon 10-17-2 018 Surgical Pathology (NOTE) [id number] [facility] [address] [place], [place] [id number] SURGICAL PATHOLOGY REPORT Patient Name: MARKEL LI MR#: [id number] Specimen #[id number] Final Diagnosis SPECIMEN A : SMALL BOWEL, [...] loss; EGD biopsy; colonoscopy, hemorrhoids; formalin time: S=4753, S=3458 Source: A: Small bowel biopsies B: Gastric [...] examination confirms the final pathologic diagnosis. Normal [facility] Comment on above: Performed By: #### P PPES #### [facility] [address] [place], [place] [id number] Vital Signs Date Time Vital Sign Value Performing Clinician Angelyi mickey 05-15-2024 12:03-0400 Body height 185.4 cm Bree Whiting MD Work Phone: [facility] 05-15-2024 12:03-0400 Body mass index (BMI) [Ratio] 26.91 kg/m2 Bree Whiting MD Work Phone: [facility] 05-15-2024 12:03-0400 Body weight 92.53 kg Bree Whiting MD Work Phone: [facility] 05-15-2024 12:03-0400 Diastolic blood pressure 66 mm[Hg] Bree Whiting MD Work Phone: [facility] 05-15-2024 12:03-0400 Heart rate 61 /min Bree Whiting MD Work Phone: [facility] 05-15-2024 12:03-0400 Systolic blood pressure 102 mm[Hg] Bree Whiting MD Work Phone: [facility] 11-15-2023 10:44-0500 Body height 182.9 cm Bree Whiting MD Work Phone: [facility] 11-15-2023 10:44-0500 Body mass index (BMI) [Ratio] 27.67 kg/m2 Bree Whiting MD Work Phone: [facility] 11-15-2023 10:44-0500 Body weight 92.53 kg Bree Whiting MD Work Phone: [facility] 10-02-2023 15:17-0500 Body temperature 96.8 [degF] Tyrese Alexander DDS Work Phone: [facility] 10-02-2023 15:17-0500 Diastolic blood pressure 91 mm[Hg] Tyrese Alexander DDS Work Phone: [facility] 10-02-2023 15:17-0500 Heart rate 58 /min Tyrese Alexander DDS Work Phone: [facility] 10-02-2023 15:17-0500 Respiratory rate 22 /min Tyrese Alexander DDS Work Phone: [facility] 10-02-2023 15:17-0500 SaO2% (BldA) [Mass fraction] 100 % Tyrese Alexander DDS Work Phone: [facility] 10-02-2023 15:17-0500 Systolic blood pressure 141 mm[Hg] Tyrese Alexander DDS Work Phone: [facility] 10-02-2023 11:35-0500 Body height 177.8 cm Tyrese Alexander [employer] Work Phone: [facility] 10-02-2023 11:35-0500 Body mass index (BMI) [Ratio] 29.27 kg/m2 Tyrese Alexander [employer] [facility] 10-02-2023 11:35-0500 Body weight 92.53 kg Tyrese Alexander [employer] Work Phone: [facility] 09-15-2023 15:07-0400 Body height 179 cm Bola Claire MD Work Phone: [facility] 09-15-2023 15:07-0400 Body mass index (BMI) [Ratio] 28.97 kg/m2 Bola Claire MD Work Phone: [facility] 09-15-2023 15:07-0400 Body temperature 97.7 [degF] Bola Claire MD Work Phone: [facility] 09-15-2023 15:07-0400 Body weight 92.81 kg Bola Claire MD Work Phone: [facility] 09-15-2023 15:07-0400 Diastolic blood pressure 72 mm[Hg] Bola Claire MD Work Phone: [facility] 09-15-2023 15:07-0400 Heart rate 58 /min Bola Claire MD [facility]: [facility] 09-15-2023 15:07-0400 Respiratory rate 32 /min Bola Claire MD [facility]: [facility] 09-15-2023 15:07-0400 SaO2% (BldA) [Mass fraction] 99 % Bola Claire MD [facility] 09-15-2023 15:07-0400 Systolic blood pressure 112 mm[Hg] Bola Claire MD Work Phone: [facility] 03-20-2019 12:52-0400 BMI (Body Mass Index) 22.24 kg/m2 Erin Harveyhi NF-Pgjkanxsctmnj-IQZ [place] [address] Work Phone: 03-20-2019 12:52-0400 Body weight 74.39 kg Erin Harveyhi NR-Bkfipkgjggppk-WRU [place] [address] Work Phone: 03-20-2019 12:52-0400 BP Diastolic 72 mm[Hg] Erin Harveyhi TG-Ppiiakjuyeblb-UUC [place] [address] Work Phone: 03-20-2019 12:52-0400 BP Systolic 103 mm[Hg] Erin Harveyhi FN-Hwgzmohihhzxk-BXL [place] [address] Work Phone: 03-20-2019 12:52-0400 BSA (Body Surface Area) 1.96 m2 Erin Harveyhi MJ-Lkythfkzywlkd-DMN [place] [address] Work Phone: 03-20-2019 12:52-0400 Height 182.88 cm Erin Harveyhi ZF-Twhasziyjnyqv-IPC [place] [address] Work Phone: 03-20-2019 12:52-0400 Pulse (Heart Rate) 62 /min Erin Harveyhi WK-Ewjdcxavjllok-CCB [place] [address] Work Phone: 03-20-2019 12:52-0400 Pulse Oximetry 100 % Erin Harveyhi IA-Kiqwtruiflfil-ZQU [place] [address] Work Phone: 03-20-2019 12:52-0400 Respiratory Rate 14 /min Erin Pan AA-Owthhbfiaokyw-PPT [place] [address] Work Phone: Encounters Encounter Date Encounter Type Care Provider Facility Start: 11-15-2024 End: 11-15-2024 ambulatory [facility] Start: 05-15-2024 End: 05-15-2024 ambulatory [facility] Start: 05-15-2024 End: 05-15-2024 Office outpatient visit 15 minutes Bree Whiting MD Work Phone: [facility] [place] Comment on above: Hypothyroidism, unsp ecified type (Primary Dx); History of hypercalcemia; Thyroid nodule; Hyperparathyroidism (Multi) Start: 12-15-2023 End: 12-16-2023 ambulatory RALEIGH EPPS Facility:[facility] Start: 11-15-2023 End: 11-15-2023 Office outpatient visit 25 minutes Bree Whiting MD Work Phone: [facility] [place] Comment on above: Hypercalcemia (Prima ry Dx); Hypothyroidism, unspecified type Start: 10-02-2023 End: 10-02-2023 ambulatory TYRESE ALEXANDER Facility:[facility] Start: 10-02-2023 End: 10-02-2023 Subsequent hospital visit by physician Tyrese Alexander DDS Work Phone: [facility] Surgery Start: 10-02-2023 End: 10-03-2023 ambulatory UNKNOWN PROVIDER Facility:[facility] Start: 10-02-2023 End: 10-03-2023 Patient encounter procedure Tyrese Alexander DDS Work Phone: [facility] Dentistry Start: 09-27-2023 Telephone encounter Cheri mercado RN [facility] Pre Surgical Evaluation Start: 09-19-2023 Telephone encounter Lina rubin RN [facility] Pre Surgical Evaluation Comment on above: Pre-surgical Evaluat ion (Informed Consent & Anesthesia consent obtained) Start: 09-15-2023 Encounter for other preprocedural examination UNKNOWN PROVIDER [facility] Start: 09-15-2023 End: 09-15-2023 ambulatory UNKNOWN PROVIDER Facility:[facility] Start: 09-15-2023 End: 09-15-2023 Patient encounter procedure Pse Anesthesia [facility] Pre Surgical Evaluation Comment on above: Pre-op evaluation (P rimary Dx) Start: 09-15-2023 Admission to [facility] Ramu Jernigan DDS Work Phone: [facility] Start: 09-15-2023 End: 09-15-2023 Office outpatient visit 25 minutes Bola Claire MD Work Phone: [facility] Comment on above: Pre-op exam (Primary Dx); Body mass index (BMI) 28.0-28.9, adult Start: 09-15-2023 End: 09-15-2023 Preprocedural examination done Bola Claire MD Work Phone: [facility] Work Phone: Start: 08-18-2023 Admission to [facility] Carline Mcfarland DDS Work Phone: [facility] Start: 03-14-2023 ambulatory Erin Pan Facility:[id number] Start: 01-18-2023 End: 01-19-[address] RALEIGH EPPS Facility:[facility] Start: 01-04-2023 End: 01-05-[address] RALEIGH EPPS Facility:[facility] Start: 10-04-2022 End: 10-05-[address] DOCTOR MULLER Facility:[facility] Start: 09-30-2022 Office outpatient vi sit 15 minutes Sai Batres Work Phone: [facility] Work Phone: Start: 09-30-2022 ambulatory Erin Pan Facility:[id number] Start: 09-20-2022 End: 09-21-[address] RALEIGH EPPS Facility:[facility] Start: 09-10-2022 End: 09-10-[address] WES HUGO . Facility:[facility] Start: 07-19-2022 End: 07-19-[address] RALEIGH EPPS Facility:[facility] Start: 03-25-2022 ambulatory Erin Pan Facility:[id number] Start: 03-16-2022 End: 03-21-2022 Patient encounter procedure Viry Gordoncirillo [facility] Work Phone: [facility] Start: 03-07-2022 End: 03-07-2022 ambulatory JAYDE ENRIQUE . Facility:[facility] Start: 09-11-2020 End: 09-12-2020 Patient encounter procedure [facility] Start: 09-11-2020 End: 09-11-2020 Subsequent hospital visit by physician Raleigh Epps Work Phone: [facility] Comment on above: Pharyngeal dysphagia Start: 09-07-2020 End: 09-07-2020 Patient encounter procedure RALEIGH EPPS [facility] Start: 08-09-2019 End: 08-12-2019 Patient encounter procedure [facility] Start: 03-20-2019 Patient encounter procedure Erin Wall Nematollahi BU-Tmrlooquqyhuu-[facility] [place] [address] Work Phone: Start: 11-21-2018 Patient encounter procedure Erin Davenportollahi IV-Gorbnxoiiqggv-MCZ [place] [address] Work Phone: Start: 08-29-2018 End: 08-29-2018 Patient encounter procedure [facility] Start: 08-15-2018 Patient encounter procedure Erin Wall Nematollahi TO-Sqyaovspyzusx-VCP [place] [address] Work Phone: Start: 03-16-2018 Patient encounter procedure Erinangelica Wall Nematollahi XH-Fmrfnzcdtrcxa-NXT [place] [address] Work Phone: Start: 11-17-2017 Patient encounter procedure Erinangelica Wall Nematollahi PZ-Bmkxuasymuwwk-JJU [place] [address] Work Phone: Start: 05-26-2017 Patient encounter procedure Erinangelica Wall Nematollahi SL-Iaqqwrjeouhkv-KWN [place] [address] Work Phone: Procedures Date Procedure Procedure Detail Performing Clinician Start: 11-15-2024 Follow-up visit Follow-up ROLAND WHITING Start: 09-15-2023 Blood count complete automated Bola Claire MD Work Phone: Start: 09-11-2020 Videofluoroscopy swallow External Transcribed Start: 08-09-2019 Ct abdomen & pelvis w/contrast material ISAM DABOUL Start: 03-20-2019 TSH WITH REFLEX TO F REE T4 IF ABNORMAL Erin [facility] Start: 08-29-2018 DISCHARGE PATIENT ISAM DABOUL Start: 08-29-2018 SURGICAL PATHOLOGY ISAM DABOUL Start: 08-29-2018 Level i surg patholo gy gross examination only ISAM DABOUL Start: 08-29-2018 BEDREST ISAM DABOU L Start: 08-29-2018 Continuous pulse oximetry ISAM DABOUL Start: 08-29-2018 ENCOURAGE DEEP BREAT YUN AND COUGHING ISAM DABOUL Start: 08-29-2018 INITIATE OXYGEN THER APY PROTOCOL ISAM DABOUL Start: 08-29-2018 NOTIFY PHYSICIAN (SPECIFY) ISAM DABOUL Start: 08-29-2018 NURSING COMMUNICATION I REY DABOUL Start: 08-29-2018 VITAL SIGNS ISAM DABOU L Start: 08-29-2018 INSERT PERIPHERAL IV IS AM DABOUL Start: 08-15-2018 Thyrotropin [Units/v olume] in Serum or Plasma Bree Whiting MD Work Phone: Plan of Treatment Date Care Activity Detail Author Start: 2041 Shingles (RZV) Vaccine (1 of 2) Shingles (RZV) Vaccine (1 of 2) [facility] Start: 2041 Zoster Vaccines (1 of 2) Zoster Vaccines (1 of 2) [facility] Start: 03-07-2032 DTaP/Tdap/Td Vaccines (9 - Td or Tdap) DTaP/Tdap/Td Vaccines (9 - Td or Tdap) [facility] Start: 11-15-2026 Tetanus [facility] Start: 11-15-2024 End: 11-15-2024 Patient encounter procedure 11/15/2024 9:20 AM EST Office Visit [facility] [place] [address] [address] [place] [address] [place] [id number] [place] [address] [address] Department of Medicine-[place] [address] [facility] [place] Start: 09-15-2024 Creatinine measurement Basic Metabolic Panel [facility] Start: 09-13-2024 End: 05-15-2025 25-hydroxyvitamin D3 [Mass/volume] in Serum or Plasma Vitamin D 25-Hydroxy,Total (for eval of Vitamin D levels) Lab Routine History of hypercalcemia Hyperparathyroidism (Multi) Expected: 09/13/2024, Expires: 05/15/2025 [facility] Work Phone: Comment on above: Expected: 09/13/2024, Expires: Start: 09-13-2024 End: 05-15-2025 Magnesium [Mass/volume] in Serum or Plasma Magnesium Lab Routine History of hypercalcemia Expected: 09/13/2024, Expires: 05/15/2025 [facility] Work Phone: Comment on above: Expected: 09/13/2024, Expires: Start: 09-13-2024 End: 05-15-2025 Parathyrin.intact [Mass/volume] in Serum or Plasma Parathyroid Hormone, Intact Lab Routine History of hypercalcemia Expected: 09/13/2024, Expires: 05/15/2025 [facility] Work Phone: Comment on above: Expected: 09/13/2024, Expires: Start: 09-13-2024 End: 05-15-2025 Renal function 2000 panel - Serum or Plasma Renal Function Panel Lab Routine History of hypercalcemia Expected: 09/13/2024, Expires: 05/15/2025 [facility] Work Phone: Comment on above: Expected: 09/13/2024, Expires: Start: 09-13-2024 End: 05-15-2025 Thyrotropin [Units/volume] in Serum or Plasma Thyroid Stimulating Hormone Lab Routine Hypothyroidism, unspecified type Expected: 09/13/2024, Expires: 05/15/2025 [email or web address] Service Area Work Phone: Comment on above: Expected: 09/13/2024, Expires: Start: 09-13-2024 End: 05-15-2025 Thyroxine (T4) free [Mass/volume] in Serum or Plasma Thyroxine, Free Lab Routine Hypothyroidism, unspecified type Expected: 09/13/2024, Expires: 05/15/2025 [facility] Work Phone: Comment on above: Expected: 09/13/2024, Expires: Start: 07-14-2024 Influenza vaccination Influenza Vaccine (#1) [facility] Start: 05-15-2024 End: 05-15-2025 US Thyroid gland US thyroid Imaging Routine Thyroid nodule Expected: 05/15/2024, Expires: 05/15/2025 [facility] Work Phone: Comment on above: Expected: 05/15/2024, Expires: Start: 05-15-2024 End: 05-15-2024 Patient encounter procedure 05/15/2024 11:40 AM EDT Office Visit [facility] [place] [address] [address] [phone] [place] [address] [address] Department of Medicine-[place] [address] [facility] [place] Start: 11-15-2023 End: 11-15-2024 Calcitriol [Mass/volume] in Serum or Plasma Vitamin D 1,25 Dihydroxy (for eval of hypercalcemia) Lab Routine Hypercalcemia Expected: 11/15/2023, Expires: 11/15/2024 [facility] Work Phone: Comment on above: Expected: 11/15/2023, Expires: Start: 11-15-2023 End: 11-15-2024 Calcium.ionized [Moles/volume] in Blood Calcium, Ionized Lab Routine Hypercalcemia Expected: 11/15/2023, Expires: 11/15/2024 [facility] Work Phone: Comment on above: Expected: 11/15/2023, Expires: Start: 11-15-2023 End: 11-15-2024 Hepatic function 2000 panel - Serum or Plasma Hepatic Function Panel Lab Routine Hypercalcemia Expected: 11/15/2023, Expires: 11/15/2024 [facility] Work Phone: Comment on above: Expected: 11/15/2023, Expires: Start: 11-15-2023 End: 11-15-2024 Parathyrin.intact [Mass/volume] in Serum or Plasma Parathyroid Hormone, Intact Lab Routine Hypercalcemia Expected: 11/15/2023, Expires: 11/15/2024 [facility] [[email or web address] Service Area Work Phone: Comment on above: Expected: 11/15/2023, Expires: Start: 11-15-2023 End: 11-15-2024 Renal function 2000 panel - Serum or Plasma Renal Function Panel Lab Routine Hypercalcemia Expected: 11/15/2023, Expires: 11/15/2024 [facility] Work Phone: Comment on above: Expected: 11/15/2023, Expires: Start: 11-15-2023 End: 11-15-2024 Thyrotropin [Units/volume] in Serum or Plasma Thyroid Stimulating Hormone Lab Routine Hypothyroidism, unspecified type Expected: 11/15/2023, Expires: 11/15/2024 [facility] Work Phone: Comment on above: Expected: 11/15/2023, Expires: Start: 11-15-2023 End: 11-15-2024 Thyroxine (T4) free [Mass/volume] in Serum or Plasma Thyroxine, Free Lab Routine Hypothyroidism, unspecified type Expected: 11/15/2023, Expires: 11/15/2024 [facility] Work Phone: Comment on above: Expected: 11/15/2023, Expires: Start: 10-02-2023 End: 10-02-2023 DENTAL RESTORATIONS DENTAL RESTORATIONS Routine scheduled Caries 10/02/2023 1:10 PM EST [facility] Start: 10-02-2023 End: 10-02-2023 Admission to same day surgery center 10/02/2023 11:24 AM EST - 10/02/2023 1:21 PM EST Surgery [facility] [address] [place], [place] [id number] Tyrese Alexander, [address] [place] [address] DENTAL RESTORATIONS [facility] Comment on above: DENTAL RESTORATIONS Start: 10-02-2023 End: 10-02-2023 DENTAL RESTORATIONS DENTAL RESTORATIONS Routine scheduled Caries 10/02/2023 11:24 AM EST [facility] Start: 10-02-2023 End: 10-02-2023 Admission to same day surgery center 10/02/2023 7:30 AM EST - 10/02/2023 9:27 AM EST Surgery [facility] Surgery [address] [place] [address] Tyrese Alexander, DDS [address] [place] [address] DENTAL RESTORATIONS [facility] Comment on above: DENTAL RESTORATIONS Start: 10-02-2023 End: 10-02-2023 DENTAL RESTORATIONS DENTAL RESTORATIONS Routine scheduled Caries 10/02/2023 7:30 AM EST [facility] Start: 10-02-2023 Subsequent hospital visit by physician [facility] Start: 10-02-2023 End: 10-02-2023 Patient encounter procedure [facility] Start: 09-15-2023 End: 09-15-2023 Patient encounter procedure 09/15/2023 2:00 PM EDT Office Visit [facility] [address] [place] [address] Bola Claire MD [address] [place] [address] [facility] Start: 07-14-2023 COVID-19 Vaccine ( season) COVID-19 Vaccine ( season) [facility] Start: 07-14-2023 COVID-19 Vaccine ( season) COVID-19 Vaccine () [facility] Start: 07-14-2023 Influenza vaccination Influenza Vaccine (#1) [facility] Start: 02-09-2021 COVID-19 Vaccine (3 - Pfizer series) COVID-19 Vaccine (3 - Pfizer series) [facility] Start: 07-14-2020 Influenza vaccination given Sequential Influenza Vaccine (#1) [facility] Start: 08-15-2019 Thyroid stimulating hormone measurement TSH Level [facility] Start: 2018 HPV Vaccine (optional start 27-45 years) HPV Vaccine (optional start 27-45 years) [facility] Start: 07-14-2013 Annual wellness visit Annual Wellness Visit (G0438) [facility] Start: 2010 Hepatitis B Vaccines (1 of 3 - 19+ 3-dose series) Hepatitis B Vaccines (1 of 3 - 19+ 3-dose series) [facility] Start: 10-28-2009 Varicella vaccination [facility] Start: 2009 Hepatitis C antibody, confirmatory test [facility] Start: 2009 Hepatitis C screening [facility] Start: 2006 [facility] Start: 1994 History and physical examination, annual for health maintenance Wellness Visit [facility] Start: 1991 Basic metabolic 2000 panel - Serum or Plasma Basic Metabolic Panel [facility] Start: 1991 Creatinine measurement Basic Metabolic Panel [facility] Start: 1991 Hepatitis B Vaccines (1 of 3 - 3-dose series) Hepatitis B Vaccines (1 of 3 - 3-dose series) [facility] Start: 1991 HIV screening HIV Screening [facility] Start: 1991 Lipid panel Lipid Panel [facility] Start: 1991 Medicare Annual Wellness Visit Medicare Annual Wellness Visit (AWV) [facility] Start: 1991 Tetanus vaccination Tetanus: Every 10yrs [facility] Start: 1991 Thyroid stimulating hormone measurement TSH [facility] End: 09-15-2024 Basic metabolic 2000 panel - Serum or Plasma BASIC METABOLIC PANEL Lab Routine Pre-op exam 1 Occurrences starting 09/15/2023 until 09/15/2024 [facility] Work Phone: Comment on above: 1 Occurrences starting 09/15/2023 until 09/15/2024 CBC panel - Blood by Automated count COMPLETE BLOOD COUNT Lab Routine Pre-op exam Ordered: 09/15/2023 [facility] Comment on above: Ordered: 09/15/2023 DENTAL RESTORATIONS DENTAL FRANKLYN RATIONS Routine scheduled Caries [facility] Immunizations Immunization Date Immunization Notes Care Provider [place] 03-07-2022 diphtheria, tetanus toxoids and pertussis vaccine Viry Keeo [facility] Work Phone: [facility] 09-08-2021 influenza, injectabl e, quadrivalent, preservative free Viry Gordoncirillo [facility] Work Phone: [facility] 09-08-2021 influenza virus vaccine, unspecified formulation Carline Mcfarland DDS Work Phone: [facility] 12-15-2020 Pfizer SARS-COV-2 (COVID-19) vaccine, age 12+ yrs, mRNA, spike protein, LNP, preservative free, 30 mcg/0.3mL dose (OHE=435) Viry Gordoncirillo [facility] Work Phone: [facility] 11-24-2020 Pfizer SARS-COV-2 (COVID-19) vaccine, age 12+ yrs, mRNA, spike protein, LNP, preservative free, 30 mcg/0.3mL dose (LYD=614) Viry Gordoncirillo [facility] Work Phone: [facility] 08-27-2020 influenza, injectabl e, quadrivalent, preservative free Viry Angel [facility] Work Phone: [facility] 08-22-2018 influenza, injectabl e, quadrivalent, contains preservative Viry Angel RDH Work Phone: [facility] Work Phone: 09-06-2017 influenza, injectabl e, quadrivalent, contains preservative Viry Angel RDH Work Phone: [facility] 11-15-2016 tetanus toxoid, redu danika diphtheria toxoid, and acellular pertussis vaccine, adsorbed Erinalva Wall [facility] Comment on above: Series: 09-03-2015 influenza, injectabl e, quadrivalent, preservative free Viry Angel RDH Work Phone: [facility] 09-30-2009 novel [id number], preservative-free, injectable Viry Angel RDH Work Phone: [facility] 09-04-2008 influenza virus vaccine, whole virus Viry Angel RD Work Phone: [facility] 08-29-2007 influenza, seasonal, injectable Viry Angel RDH Work Phone: [facility] 03-29-2007 meningococcal polysaccharide (groups A, C, Y and W-135) diphtheria toxoid conjugate vaccine (MCV4P) Viry Angel RD Work Phone: [facility] 09-29-2006 tetanus toxoid, redu danika diphtheria toxoid, and acellular pertussis vaccine, adsorbed Viry Angel RD Work Phone: [facility] 09-12-2006 influenza, seasonal, injectable Viry Angel RDH Work Phone: [facility] 06-25-2003 measles, mumps and rubella virus vaccine Viry Angel RD Work Phone: [facility] 09-25-1996 diphtheria, tetanus toxoids and pertussis vaccine Viry Angel RD Work Phone: [facility] 09-25-1996 poliovirus vaccine, inactivated Viry Angel RD Work Phone: [facility] 02-05-1993 diphtheria, tetanus toxoids and pertussis vaccine Viry Angel RD Work Phone: [facility] 11-23-1992 haemophilus influenz ae type b vaccine, conjugate unspecified formulation Viry Angel [facility] Work Phone: [facility] 11-23-1992 measles, mumps and rubella virus vaccine Viry Angel [facility] Work Phone: [facility] 10-02-1992 poliovirus vaccine, inactivated Viry Angel [facility] Work Phone: [facility] 02-03-1992 diphtheria, tetanus toxoids and pertussis vaccine Viry Angel [facility] Work Phone: [facility] 02-03-1992 haemophilus influenz ae type b vaccine, conjugate unspecified formulation Viry Angel [facility] Work Phone: [facility] 1991 diphtheria, tetanus toxoids and pertussis vaccine Viry Angel [facility] Work Phone: [facility] 1991 haemophilus influenz ae type b vaccine, conjugate unspecified formulation Viry Angel [facility] Work Phone: [facility] 1991 trivalent poliovirus vaccine, live, oral Viry Angel [facility] Work Phone: [facility] 1991 diphtheria, tetanus toxoids and pertussis vaccine Viry Angel RD Work Phone: [facility] 1991 haemophilus influenz ae type b vaccine, conjugate unspecified formulation Viry Angel [facility] Work Phone: [facility] 1991 trivalent poliovirus vaccine, live, oral Viry Dykesllo [facility] Work Phone: [facility] Payers Date Payer Category Payer Unknown 2020 Medicaid MEDICAID [facility] [id number] 2020-Present [id number] 2016 Medicare [id number] 2012 Medicare [id number] 2010 Medicaid [id number] [id number] [id number] 1991 Unknown [id number] 2.16.840.1.508223.3.579.2.176 1991 Unknown [id number] 2.16.840.1.567167.3.579.2.176 1991 Unknown [id number] 2.16.840.1.210926.3.579.2.903 1991 Unknown [id number] 2.16.840.1.143583.3.579.2.593 1991 Unknown [id number] 2.16.840.1.069237.3.579.2.593 1991 Unknown [id number] 2.16.840.1.293541.3.579.2.593 1991 Unknown [id number] 2.16.840.1.369378.3.579.2.593 1991 Unknown [id number] 2.16.840.1.215834.3.579.2.593 1991 Unknown [id number] 2.16.840.1.769670.3.579.2.593 1991 Unknown [id number] 2.16.840.1.773151.3.579.2.593 1991 Unknown [id number] 2.16.840.1.692908.3.579.2.356 1991 Unknown [id number] 2.16.840.1.668016.3.579.2.356 1991 Unknown [id number] 2.16.840.1.195374.3.579.2.356 1991 Unknown [id number] 2.16.840.1.746762.3.579.2.732 1991 Unknown [id number] 2.16.840.1.672559.3.579.2.732 1991 Unknown [id number] 2.16.840.1.777304.3.579.2.732 1991 Unknown [id number] 2.16.840.1.945233.3.579.2.732 1991 Unknown [id number] 2.16.840.1.485054.3.579.2.727 1991 Unknown [id number] 2.16.840.1.701570.3.579.2.1244 1991 Unknown [id number] 2.16.840.1.786596.3.579.2.1244 1959 Medicaid [id number] 1958 Medicare [id number] Social History Date Type Detail Facility Tobacco smoking status FLIS Unknown if ever smoked KW-Rmzrwskyztshb-BKT [place] [address] Work Phone: Start: 1991 Sex Assigned At Not on file [facility] Start: 05-05-2024 End: 05-15-2024 Exposure to SARS-CoV-2 (event) Not sure [facility] Start: 12-07-2017 End: 05-15-2024 Tobacco smoking status FLIS [facility] Start: 12-07-2017 End: 05-15-2024 Tobacco use and exposure Smokeless tobacco non-user [facility] Start: 05-15-2024 Never smoker Never smoker [facility] Work Phone: Start: 05-15-2024 Gender identity Not on file Andrews kwon Tobacco smoking status NHIS Tobacco smoking consumption unknown [facility] Work Phone: Start: 11-05-2023 End: 11-15-2023 Exposure to SARS-CoV-2 (event) Yes [facility] NEGATED: Highlighted row - - UQ-Iqgieljufbyhz-HEO [place] [address] Work Phone: NEGATED: Highlighted rowStart: NINF History of tobacco use Passive smoker [facility] Work Phone: Functional Status Date Assessment Result Facility NEGATED: Highlighted row Functional performance Functional status health issues are not documented Disease OC-Wfhlfaktgmwze-HE C [place] [address] Work Phone: Mental Status Date Assessment Result Facility NEGATED: Highlighted row Cognitive function [Interpretation] Cognitive status health issues are not documented Disease XK-Fkthvsotiaeza-CZ C [facility] [address] Work Phone: Clinical Notes 03-16-2022 to 05-15-2024 Edilia Parker MD - 05/15/2024 11:40 AM EDTPatient InstructionsSalvador Cruz MD - 11/15/2023 9:40 AM ESTPatient InstructionsDischarge InstructionsAttachmentsPatient Instructions Note Date & Type Note Facility 05-15-2024 History of Present illness Narrative Markel Li is a 33 y.o. male with pmh of severe mental retardation, autism, bipolar disorder,severe psychosis, GERD, HTN , hypercalcemia [facility] 2/2 [facility] with exacerbation by lithium intake (that has been taking since 09/1999-> off), hypothyroidism with goiter and bilateral thyroid cysts , used to follow up with Dr Wall , here for his 6 months follow up. Last clinic visit: 11/2023. Interval hx: ======= He is accoumpanied by a behavioral help from [facility] . He states that the patient has been in good spirits with no violent outbursts. Sleep is good. Has freq bowel mvts. No cold or heat intolerance. Wt and appetitie is stable. No polyuria . No fractures recently or difficulty swallowing . No tremors no palpitations. He is taking levothyroxine 75 mcg daily He is not on [place] 300 mg anymore but is on oxecarbamazepine. Reportedly normal BMD on 08/2012 with no evidence of osteoporosis or osteopenia (normal findings). Had a PTH 2018- 30.8 For hypothyroidism he is on Lt4 75 mcg/ day, was previously taking his med inappropriately. Currently no sign of hypothyroidism. Home meds: Current Outpatient Medications on File Prior to Visit Medication Sig Dispense Refill busPIRone (Buspar) 10 mg tablet Take 3 tablets (30 mg) by mouth 3 times a day. calcium carbonate (Tums) 200 mg calcium chewable tablet Chew 2 tablets (1,000 mg) once daily at bedtime. calcium carbonate-vitamin D3 (Oyster Shell Calcium-Vit D3) 500 mg-5 mcg (200 unit) tablet Take 1 tablet by mouth 2 times a day. cholecalciferol (Vitamin D-3) 25 MCG (1000 UT) tablet Take 1 tablet (25 mcg) by mouth once daily. cyanocobalamin (Vitamin B-12) 1,000 mcg tablet Take 1 tablet (1,000 mcg) by mouth once daily. docusate sodium (Colace) 100 mg capsule Take 1 capsule (100 mg) by mouth 3 times a day. folic acid (Folvite) 1 mg tablet Take 1 tablet (1 mg) by mouth once daily. gabapentin (Neurontin) 400 mg capsule Take 1 capsule (400 mg) by mouth once daily. gabapentin (Neurontin) 800 mg tablet Take 1 tablet (800 mg) by mouth 3 times a day. guanFACINE (Tenex) 1 mg tablet Take 2 tablets (2 mg) by mouth once daily at bedtime. guanFACINE (Tenex) 2 mg tablet Take 1 tablet (2 mg) by mouth twice a day. levothyroxine (Synthroid, Levoxyl) 75 mcg tablet Take 1 tablet (75 mcg) by mouth early in the morning.. Take on an empty stomach at the same time each day, either 30 to 60 minutes prior to breakfast linaCLOtide (Linzess) 290 mcg capsule Take 1 capsule (290 mcg) by mouth once daily. loratadine (Claritin) 10 mg tablet Take 1 tablet (10 mg) by mouth once daily. lurasidone (Latuda) 120 mg tablet Take 1 tablet (120 mg) by mouth once daily at bedtime. melatonin 5 mg tablet Take 1 tablet (5 mg) by mouth once daily at bedtime. metoprolol tartrate (Lopressor) 100 mg tablet Take 1 tablet (100 mg) by mouth 4 times a day. omeprazole (PriLOSEC) [address] capsule Take 1 capsule (20 mg) by mouth once daily. OXcarbazepine (Trileptal) 600 mg tablet Take by mouth 2 times a day. topiramate (Topamax Sprinkle) 25 mg capsule Take 1 capsule (25 mg) by mouth 3 times a day. traZODone (Desyrel) 100 mg tablet Take 0.5 tablets (50 mg) by mouth once daily at bedtime. [DISCONTINUED] levothyroxine (Synthroid, Levoxyl) 50 mcg tablet Take 1 tablet (50 mcg) by mouth once daily. No current facility-administered medications on file prior to visit. Visit Vitals BP 102/66 Pulse 61 Ht 1.854 m (6' 1 ) Wt 92.5 kg (204 lb) BMI 26.91 kg/m Smoking Status Never BSA 2.18 m Constitutional: NAD, Mute and non verbal. Non aggressive Skin/Hair: Warm, dry skin. HEENT: EOMI, Anicteric scleras . Thyroid gland non enlarged. Non tender to palpation, left lower lobe nodule? Neck: Soft, supple Cardiovascular: normal HR Respiratory: no increased wob. Abdomen - soft , nondistended Psych : appropriate affect Reflexes: unable to elicit DTRs labs and imaging reviewed, pertinent findings listed on HPI and Impression Labs: === Will be scanned in his chart: 01/03/2024 at [facility]: -PTH: 19 -Calcium: 9, alb: 3.8 -creat: 1.5, GFR >60 -Na: 144, K: 4 -LFTs wnl -TSH: 1.99 -FT4: 0.47 -Folate: 19 -B12: 239 -CBC: hb 13.3, ht 39.8, wbc: 5.8, pltlts: 221 Assessment/plan: Markel Rick Li is a 33 M PMH: autism, bipolar was on lithium since 1998, currently off, psychosis, GERD, HTN who was previously seeing Dr. Wall ans is currently following up for calcium levels , MNG, and hypothyroidism 1) MNG , Hypothyroidism Had serial ultrasounds in the past per report last ultrasound was 2015. Heterogenous thyroid with multiple bilateral subcentimeter cysts - will recheck thyroid US to r/o enlarging thyroid cysts. -will continue LT4 75 mcg 1 tab orally daily, 30 min prior to other meds or meals 2) Hypercalcemia- resolved-->Hypocalcemia - resolved HyperCa Presumed to be SE of [place], less likely [facility] given the improvement in calcium levels after calcium and vit D supplementation Currently off lithium Last coca 9.2 (12/2023) -vitamin D to 5000 units daily -calcium 500mg (elemental ca) twice a day with meals - Obtain labs- Mg, PTH, RFP, TSH, Ft4, vitamin D prior to next office visit. RTC in 6 months Case seen, examined, and discussed with Dr. Whiting Associated attestation - Bree Whiting MD - 05/20/2024 9:38 PM EDT I saw and evaluated the patient. I personally obtained the blanchard and critical portions of the history and physical exam or was physically present for blanchard and critical portions performed by the resident/fellow. I reviewed the resident/fellow's documentation and discussed the patient with the resident/fellow. I agree with the resident/fellow's medical decision making as documented in the note. documented in this encounter [facility] Work Phone: 05-15-2024 Instructions Bree Whiting MD - 05/15/2024 11:40 AM EDT Continue levothryoxine 75mcg daily Continue calcium 500mg BID Continue Vitamin D 4000 units daily Schedule a thyroid ultrasound Get your labs done prior to the next appointment (sometime in September) Follow up in 6 months Bree Whiting MD Divison of Endocrinology [facility] option 4, then option 1 documented in this encounter [facility] Work Phone: 11-15-2023 History of Present illness Narrative Images [...] is accoumpanied by a behavioral help from [facility] . He states that the patient has been in good spirits with no violent outbursts. Sleep is good. No issues with bowel abnormalities. No cold or heat intolerance. Wt and appetitie is stable. No polyuria . No fractures recently or difficulty swallowing . He is taking levothyroxine at 4 pm in the afternoon and not from other meds. He not on [place] 300 mg anymore but is on oxecarbamzaepine [...] 2.17 m guardian is brother Yogesh nb [phone] Associated attestation - Bree Whiting MD - [...] in the note. documented in this encounter [facility] Work Phone: 11-15-2023 Instructions rBee Whiting MD - 11/15/2023 9:40 AM EST -change timing for levothyroxine to 50mcg daily at600 am hold other meds at least 30 min after -increase vitamin D to 5000 units daily -calcium 500mg (elemental ca) twice a day with meals Get your labs done now Follow up in 6 months Bree Whiting MD Divison of Endocrinology [facility] option 4, then option 1 documented in this encounter [facility] Work Phone: 10-02-2023 Hospital Discharge instructions [...] very uncomfortable and can t urinate, call [phone] or come to the emergency room. The following attachments cannot be sent through Care Everywhere.Dental Pain Discharge Instructions (Indian)documented [facility] Surgical Attestation : I have [...] Tyrese Alexander DDS 10/02/2023 12:41 PM [facility] 10-02-2023 Surgery Postoperative evaluation and management note Brief Operative Note [facility] OR 3 Markel Li 33 year old male Surgical Contact Serial Number: [id number] Preoperative Diagnosis: Caries [K02.9] Autism [ F 84] Postoperative Diagnosis: * Caries [K02.9] Procedures: Full mouth X ray [62466] Comprehensive exam [14337] Prophylaxis [62955] Restorations [35993] Surgeon(s): Surgeon(s): Tyrese Alexander DDS Staff: Director Of Revenue Cycle Management Nurse: Nina Galan RN End Lathe Operator: Ca Raza DDS; Rosas Narayanan DDS Anesthesia: General Anesthesiologist: Timothy Elizalde MD MANAGED CARE MANAGER: Rainer Fatima APRN-ARANZA Anesthesia Student: Joyce Rivers Specimen(s): * No specimens in log * Estimated Blood Loss: less than 5 cc Lines/Drains: Peripheral IV Access: 10/02/23 1328 20 gauge Left Hand (Active) Site Assessment WNL;Dressing intact 11/20/23 1328 Infusion Status Port #1 Infusing 10/02/23 [...] by Rosas Martini DDS 10/02/2023 2:29 PM [facility] 10-02-2023 Surgery Surgical operation note Surgical Case Number Data Unavailable Operating Room Data Unavailable Preoperative Diagnosis: Caries [K02.9] Autism [ F 84] Preoperative Diagnosis: Caries [K02.9] Autism [ F 84] Postoperative Diagnosis: Autism [ F 84] Procedures: Full mouth X ray [25757] Comprehensive exam [53604] Prophylaxis [29893] Restorations [69168] Postoperative Diagnosis(es): Same @ENCORD@ Surgeon: Dr Tyra DDS Parts Counter Specialist Surgeon: WILLIAMS Corcoran DDS Anesthesia: General- Nasal [...] procedure. Rosas Martini DDS 10/02/2023 2:34 PM [facility] 10-02-2023 History and physical note Surgical [...] possible Tyrese Alexander DDS 10/02/2023 12:41 PM [facility] Work Phone: 10-02-2023 History and physical note [...] 10/02/2023 12:41 PM documented in this encounter [facility] 10-02-2023 Progress note Formatting of t his note is different from the original. Blood Attestation: ATTESTATION OF INFORMED CONSENT FOR BLOOD: The transfusion of blood and/or blood components were discussed with the patient and/or legal employee relations representative. The risks, benefits and alternatives were reviewed. Questions regarding blood transfusions were answered. The patient /or the patient s legal employee relations representative agree with the plan for transfusion of blood and/or blood components. [facility] Work Phone: 10-02-2023 History of Present illness Narrative ----- Monday,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
[2024-11-26 07:16] LABS: Basophils Absolute Auto 0.1 10^3/uL (0.0-0.1); Basophils Percent Auto 0.8 % (0.2-2.0); Eosinophils Absolute Auto 0.1 10^3/uL (0.0-0.7); Hematocrit 43.9 % (42.0-54.0); Hemoglobin 14.7 g/dL (14.0-18.0); Immature Granulocytes Abs Auto 0.01 10^3/uL (0.00-0.03); Immature Granulocytes Pct Auto 0.2 % (0.0-0.5); Lymphocytes Absolute Auto 1.9 10^3/uL (1.2-3.8); Lymphocytes Percent Auto 29.2 % (20.5-60.0); Mean Corpuscular HGB Conc 33.5 g/dL (29.9-35.2); Mean Corpuscular Volume 86.6 fL (80.0-94.0); Monocytes Absolute Auto 0.4 10^3/uL (0.3-0.8); Neutrophils Percent Auto 61.8 % (43.0-75.0); Platelet Count 234 10^3/uL (150-450); Red Blood Count 5.07 10^6/uL (4.70-6.10); Red Cell Distribution Width 12.9 % (11.0-15.0); White Blood Count 6.5 10^3/uL (4.0-11.0)
[2024-11-26 07:42] LABS: Alanine Aminotransferase 48 U/L (16-63); Albumin Globulin Ratio 1.2; Albumin Level 4.3 g/dL (3.4-5.0); Alkaline Phosphatase 124 U/L (46-116); Anion Gap 14.6; Aspartate Amino Transferase 22 U/L (15-37); BUN Creatinine Ratio 9.1; Bilirubin Total 0.3 mg/dL (0.2-1.0); Calcium 9.4 mg/dL (8.5-10.1); Carbon Dioxide 28.5 mmol/L (21.0-32.0); Chloride 107 mmol/L (98-107); Estimated GFR (African America 55 (>=60 mL/min/1.73m^2); Estimated GFR (Non-African Ame 45 (>=60 mL/min/1.73m^2); Globulin 3.7 g/dL; Glucose 95 mg/dL (74-106); Potassium 4.1 mmol/L (3.5-5.1); Sodium 146 mmol/L (136-145); Thyroid Stimulating Hormone 2.392 uIU/mL (0.358-3.740)
[2024-11-27 03:08] LABS: Vitamin B12 1077 pg/mL (232-1245)
[2024-11-27 08:10] LABS: Triiodothyronine (T3) 62 ng/dL (71-180)
== END 2024-11-26 06:50 | disposition home or self-care (01) ==
LOC: LAB 06:50
PROVIDERS: PCP Family Medicine; Visit Provider Family Medicine
DX: Z79.899 Other long term (current) drug therapy (principal); E03.9 Hypothyroidism, unspecified; N18.30 Chronic kidney disease, stage 3 unspecified; F31.9 Bipolar disorder, unspecified; E55.9 Vitamin D deficiency, unspecified; I12.9 Hypertensive chronic kidney disease with stage 1 through stage 4 chronic kidney disease, or unspecified chronic kidney disease
CPT/HCPCS: 36415; 80053; 82306; 82607; 84436; 84443; 84480; 85025

== ENCOUNTER 2024-12-17 14:32 | Outpatient (REF) | payer MEDICARE, MEDICAID, SELFPAY ==
--- OUTSIDE RECORDS SUMMARY | 2024-12-17 14:37 | XMS_ITS | CCD ---
Author Organization [facility] Care Team Providers Care Chefs Name Role Phone DABOUL, ISAM Admitting Unavailable DABOUL, ISAM Attending Unavailable EPPSRALEIGH Primary Care Unavailable DABOUL, ISAM Referring Unavailable EPPSRALEIGH Primary Care Unavailable EPPSRALEIGH Admitting Unavailable EPPSRALEIGH Referring Unavailable EppsRaleigh Unavailable EpspRaleigh mccain Primary Care Provider RALEIGH EPPS Attending Unavailable EPPSRALEIGH Referring Unavailable EPPSRALEIGH Primary Care Unavailable Duke Nematollahi, Erin Unavailable Unavai Sai Tena Unavailable Unavailable Nancy DDS, Nataliia Unavailable Raleigh Epps DO Primary Care Provider [phone] Sai Batres Unavailable Unavailable Unavailable JAYDE ALEXIS [...] (3 sources) fluvoxaMINE; Translations: [Luvox] Drug Allergy [facility] Repository (16 sources) QUEtiapine; Translations: [SEROquel TABS] Drug Allergy 02-03-2017 Unknown [facility] [place] [address] Work Phone: (5 sources) risperiDONE; Translations: [risperiDONE TABS] Drug Allergy 02-06-2017 Unknown [facility] [place] [address] Work Phone: (2 sources) Valproate; Translations: [Depakote] Drug Allergy [facility] [place] [address] Work Phone: (16 sources) fluvoxaMINE; Translations: [FLUVOXAMINE] Drug All[facility] 02-06-2017 [facility] sources[facility] Valproate; Translations: [VALPROIC ACID] Drug Allergy 02-03-2017 [facility] (13 sources) risperiDONE; Translations: [RISPERIDONE] Drug Allergy 02-06-2017 [facility] (2 sources) QUEtiapine; Translations: [QUETIAPINE] Drug Allergy 02-03-2017 [facility] Repository (3 sources) Valproate; Translations: [DIVALPROEX] Drug Allergy 11-15-2023 Unknown [facility] (1 source) QUEtiapine; Translations: [SEROquel] Drug Allergy [facility] Repository Medications Current Medications Medication Drug [...] a day. Active take 2 capsules by [facility] times daily Docusate Sodium 100 MG [...] Active Start: 03-25-2022 take 1 tablet by [facility] at bedtime guanFACINE HCl - 1 MG Oral Tablet TAKE 1 TABLET AT BEDTIME. Quantity: 0 Refills: 0 Ordered: 25-Mar-2022 DO Start : 25-Mar-2022 Active take 1 tablet by [facility] twice daily guanFACINE (Tenex) 2 mg tablet Take 1 tablet (2 mg) by mouth twice a day. Active take 4 tablets by [facility] in the morning, then take 8 [...] daily Refills: 0 Active polyethylene glycol 3350 18711 mg powder for oral solution (2 sources) [...] chemistry] Episodic Other aftercare (1 source) Other exterminator (current) drug therapy; Translations: [OTH CRIMINAL INTELLIGENCE SPECIALIST CURRENT DRUG THERAPY] Onset: 3 Episodic Other [...] Facility Consent for Treatmenton Consent for Treatment [id number] .[id number] Normal [facility] XR Adult Swallowing Function w/ Videoon [...] mGy = 17.10 DAP = 395.03 Normal [facility] Physician Orderon 12-11-2023 Physician Order [id number]. 00TIFF Normal [facility] Anesthesia Postprocedure Clara luationon 10-03-2023 Manager Nuclear Authentication Interface Message Text Anesthesia Postoperative Assessment: [...] EVENTS: No notable events documented. Normal [facility] Anesthesia Preprocedure Eval uationon 10-02-2023 Manager Nuclear Authentication Interface Message Text ASA: 3 No [...] were discussed with the patient and/or legal claims customer service representative. The risks, benefits and alternatives were reviewed. Questions regarding anesthesia were answered. Patient and/or legal claims customer service representative knows such anesthetics and procedures may be performed by Resident physicians, Certified Anesthesiologist Assistants, or Certified Nurse Anesthetists under the supervision of a physician. The patient /or the patient's legal claims customer service representative agree with the plan for anesthesia. [...] DENTAL RESTORATIONS; Surgeon: Grabiel Cummings DDS; Location: [facility] [place]; Service: Dental * EXTRACTION, TOOTH 02/06/2017 Procedure: EXTRACTION, TOOTH; Surgeon: Noé Drew DDS; Location: PERIOPERATIVE SERVICES; Service: Dental * UNLISTED PROCEDURE, DENTOALVEOLAR STRUCTURES 04/29/10 * X-RAY EXAM OF TEETH. [id number] 04/29/10 Social History Socioeconomic History * Marital status: Single Tobacco Use * Smoking status: Never * Smokeless tobacco: Never Social History Narrative [facility]. Brother is guardian. Current Outpatient Medications [...] carbamazepine (more content not included)... Normal [facility] Anesthesia Transfer Of Careo n 10-02-2023 Manager Nuclear Authentication Interface Message Text Patient taken to [...] surgical history indicates: X-RAY EXAM OF TEETH. [id number] (04/29/10) UNLISTED PROCEDURE, DENTOALVEOLAR STRUCTURES (04/29/10) DENTAL RESTORATIONS (02/06/2017) Procedure: DENTAL RESTORATIONS; Surgeon: Noé Drew DDS; Location: [facility]OPERATIVE SERVICES; Service: Dental EXTRACTION, TOOTH (02/06/2017) Procedure: EXTRACTION, TOOTH; Surgeon: Noé Drew DDS; Location: [facility]OPER[facility]IVE SERVICES; Service: Dental DENTAL RESTORATIONS (02/15/2021) Procedure: DENTAL RESTORATIONS; Surgeon: Grabiel Cummings DDS; Location[place]; Service: Dental Allergies: Depakote [valproic acid], Luvox [fluvoxamine], Risperidone, and Seroquel [quetiapine] Basic Operating Room Facts: Surgeon(s): Tyrese Alexander DDS Anesthesiologist: Timothy Elizalde MD FINISHER SCREWDOWN: Rainer Fatima APRN-CRNA Anesthesia Student: Joyce Rivers [...] report was received. KATIE Cunningham Normal [facility] Blood Attestationon 11-20-20 23 Manager Nuclear Authentication Interface Message Text Blood Attestation: ATTESTATION OF INFORMED CONSENT FOR BLOOD: The transfusion of blood and/or blood components were discussed with the patient and/or legal claims customer service representative. The risks, benefits and alternatives were reviewed. Questions regarding blood transfusions were answered. The patient /or the patient's legal claims customer service representative agree with the plan for transfusion of blood and/or blood components. Normal [facility] Brief Operative Noteon 10-02 Manager Nuclear Authentication Interface Message Text Brief Operative Note PHE OR 3 Markel Li 33 year old male Surgical Contact Serial Number: [id number] Preoperative Diagnosis: Caries [K02.9] Autism [ F 84] Postoperative Diagnosis: * Caries [K02.9] Procedures: Full mouth X ray [88768] Comprehensive exam [21778] Prophylaxis [86120] Restorations [37671] Surgeon(s): Surgeon(s): Tyrese Alexander DDS Staff: Event Sales Assistant Nurse: Nina Galan RN Process Tech: Ca Raza DDS; Rosas Narayanan DDS Anesthesia: General Anesthesiologist: Timothy Elizalde MD FINISHER SCREWDOWN: Rainer Fatima APRN-CRNA Anesthesia Student: Joyce Rivers [...] Martini DDS 10/02/2023 2:29 PM Normal [facility] OP Noteon 10-02-2023 Manager Nuclear Authentication Interface Message Text Surgical Case Number Data Unavailable Operating Room Data Unavailable Preoperative Diagnosis: Caries [K02.9] Autism [ F 84] Preoperative Diagnosis: Caries [K02.9] Autism [ F 84] Postoperative Diagnosis: Autism [ F 84] Procedures: Full mouth X ray [05999] Comprehensive exam [41352] Prophylaxis [27939] Restorations [90523] Postoperative Diagnosis(es): Same @ENCORD@ Surgeon: Dr Tyra DDS Trailer Chief Surgeon: WILLIAMS Corcoran DDS Anesthesia: General- Nasal [...] Martini DDS 10/02/2023 2:34 PM Normal [facility] Progress Noteson 10-02-2023 Manager Nuclear Authentication Interface Message Text ----- Monday, October 02, 2023 at 2:27:57 PM ----- ----- Provider: Alessio Mary DDS -- Clinic: [facility] ----- [place] notes, [facility] pt is read for tx [place]. [...] Note Type: OP Note Status: Cosign Needed Production Analyst: Rosas Narayanan DDS (Resident) Cosign Required: Yes Expand All Collapse All Surgical Case Number Data Unavailable Operating Room Data Unavailable Preoperative Diagnosis: Caries [K02.9] Autism [ F 84] Preoperative Diagnosis: Caries [K02.9] Autism [ F 84] Postoperative Diagnosis: Autism [ F 84] Procedures: Full mouth X ray [12060] Comprehensive exam [82359] Prophylaxis [70794] Restorations [61335] Postoperative Diagnosis(es): Same @ENCORD@ Surgeon: Dr Tyra DDS Trailer Chief Surgeon: WILLIAMS Corcoran DDS Anesthesia: General- Nasal [...] Martini DDS 10/02/2023 2:34 PM Normal [facility] Telephone Encounteron 2022 Manager Nuclear Authentication Interface Message Text DD adult dental restorations on 10/02 under [place] at [place]. PSE completed - consents obtained. PSE RN spoke to Miriam from [facility], confirmed O, [place] address, and 1100 arrival time Normal [facility] Telephone Encounteron 2022 Manager Nuclear Authentication Interface Message Text Informed Consent for dental surgery AND Anesthesia consent obtained and scanned into [facility]. Scheduled for surgery 10/02/2023. Normal [facility] BASIC METABOLIC PANELon 11-0 Anion gap [Moles/Vol] 13 mmol/L Normal - The [facility] Comment on above: Performed By: #### C H8 ####S PATHOLOGY [id number] [place], [place], Calcium [Mass/Vol] 9.6 mg/dL Normal 8.4-10.4 The [facility] Comment on above: Performed By: #### C H8 ####S PATHOLOGY [id number] [place], [place], Chloride [Moles/Vol] 105 mmol/L Normal 97-111 [facility] Comment on above: Performed By: #### C H8 ####[facility] PATHOLOGY [id number] [place], [place], CO2 [Moles/Vol] 26 mmol/L Normal 21-30 The [facility] Comment on above: Performed By: #### C H8 ####[facility] PATHOLOGY [id number] [place], [place], Creatinine [Mass/Vol] 1.58 mg/dL High 0.80-1.30 [facility] Comment on above: Performed By: #### C H8 ####[facility] PATHOLOGY [id number] [place], [place], ESTIMATED GFR (CKD-EPI) 59 mL/min/1.73sqm Low >=60 The [facility] Comment on above: Result Comment: 2020 [...] Inclusion of Race in Diagnosing Kidney Disease. Canadian Journal of Kidney Diseases 2021;79(2):268-88.e1. 2. N Engl J Med 1 Vol. 385 Issue 19 Pages 9486-7677 Performed By: #### C H8 ####[facility] PATHOLOGY [id number] [place], [place], Glucose [Mass/Vol] 69 mg/dL Normal 68-110 The [facility] Comment on above: Performed By: #### C H8 ####S PATHOLOGY [id number] [place], [place], Potassium [Moles/Vol] 4.1 mmol/L Normal 3.3-5.3 [facility] Comment on above: Performed By: #### C H8 ####S PATHOLOGY [id number] [place], [place], Sodium [Moles/Vol] 140 mmol/L Normal 135-148 The [facility] Comment on above: Performed By: #### C H8 ####[facility] PATHOLOGY [id number] [place], [place], Urea nitrogen [Mass/Vol] 18 mg/dL Normal 8-22 The [facility] Comment on above: Performed By: #### C H8 ####S PATHOLOGY [id number] [place], [place], Basic metabolic 2000 panelon 09-15-2023 Anion [...] Inclusion of Race in Diagnosing Kidney Disease. Canadian Journal of Kidney Diseases 202;79(2):268-88.e1. 2. N Engl J Med 1 Vol. 385 Issue 19 Pages 1456-4278 Glucose [Mass/Vol] 69 mg/dL 68 - 110 mg/dL [facility] Interpretation and review of laboratory results Abnormal [facility] Potassium [Moles/Vol] 4.1 mmol/L 3.3 - 5.3 mmol/L [facility] Sodium [Moles/Vol] 140 mmol/L 135 - 148 mmol/L [facility] Urea nitrogen [Mass/Vol] 18 mg/dL 8 - 22 mg/dL [facility] CBC panel Auto (Bld)on 09-15 Erythrocyte distribution width (RBC) [Ratio] 13.3 % 11.5 - 14.5 % [facility] Hematocrit (Bld) [Volume fraction] 41.8 % 41.0 - 53.0 % [facility] Hemoglobin (Bld) [Mass/Vol] 13.8 g/dL Low 13.9 - 16.3 g/dL [facility] Interpretation and review of laboratory results Abnormal [facility] MCH (RBC) [Entitic mass] 28.7 pg 26.0 - 34.0 pg [facility] MCHC (RBC) [Mass/Vol] 32.9 g/dL 32.0 - 35.9 g/dL [facility] MCV (RBC) [Entitic vol] 87 fL 80 - 100 fL [facility] Platelet mean volume (Bld) [Entitic vol] 8.7 fL 7.5 - 11.2 fL [facility] Platelets (Bld) [#/Vol] 213 10*3/uL 150 - 400 K/uL [facility] RBC (Bld) [#/Vol] 4.80 10*6/uL [facility] WBC (Bld) [#/Vol] 6.3 10*3/uL 4.5 - 11.5 K/uL [facility] COMPLETE BLOOD COUNTon 09-15 Erythrocyte distribution width (RBC) [Ratio] 13.3 % Normal 11.5-14.5 The [facility] System Comment on above: Performed By: #### C BC ####[facility] PATHOLOGY [id number] [place], [address] Hematocrit (Bld) [Volume fraction] 41.8 % Normal 41.0-53.0 The [facility] h System Comment on above: Performed By: #### C BC ####[facility] PATHOLOGY [id number] [place], [place], Hemoglobin (Bld) [Mass/Vol] 13.8 g/dL Low 13.9-16.3 The [facility] System Comment on above: Performed By: #### C BC ####[facility] PATHOLOGY [id number] [place], [place], MCH (RBC) [Entitic mass] 28.7 pg Normal 26.0-34.0 The [facility] System Comment on above: Performed By: #### C BC ####[facility] PATHOLOGY [id number] [place], [place], MCHC (RBC) [Mass/Vol] 32.9 g/dL Normal 32.0-35.9 The [facility] System Comment on above: Performed By: #### C BC ####[facility] PATHOLOGY [id number] [place], MCV (RBC) [Entitic vol] 87 fL Normal 80-100 The [facility] Comment on above: Performed By: #### C BC ####[facility] PATHOLOGY [id number] [place], Platelet mean volume (Bld) [Entitic vol] 8.7 fL Normal 7.5-11.2 The [facility] System Comment on above: Performed By: #### C BC ####[facility] PATHOLOGY [id number] [place], Platelets (Bld) [#/Vol] 213 10*3/uL Normal 150-400 The [facility] Comment on above: Performed By: #### C BC ####S PATHOLOGY [id number] [place], RBC (Bld) [#/Vol] 4.80 10*6/uL Normal 4.50-5.90 The [facility] Comment on above: Performed By: #### C BC ####[facility] PATHOLOGY [id number] [place], WBC (Bld) [#/Vol] 6.3 10*3/uL Normal 4.5-11.5 The [facility] System Comment on above: Performed By: #### C ####[facility] PATHOLOGY [id number] [place], [address] PSE Chartingon 09-15-2023 Manager Nuclear Authentication Interface Message Text Dental Consult The [...] Treatment Dental Treatment in the OR Follow-up [facility] if needed Note: Legal guardian: Yogesh Li (BROTHER): [phone]. The patient lives in a Facility. A caregiver brushes his teeth twice a day. Ramu Jernigan DDS Normal [facility] Patient Instructionson 09-15 Manager Nuclear Authentication Interface Message Text RECOMMENDATIONS: Patient was instructed on the following: Nothing by mouth after midnight before surgery except following meds with sip of water on AM of surgery: as per anesthesia Stop aspirin 7 days before surgery Stop NSAID 5 days before surgery Stop Vitamin E 10 days prior to surgery Stop alternative/herbal medication 10 days before surgery Normal [facility] Progress Noteson 09-15-2023 Manager Nuclear Authentication Interface Message Text Blood pressure 112/72, [...] [Quetiapine] Latex Allergy: No Surgical Procedure: dental [facility] Surgeon: unknown Date of Surgery: 10/02/2023 HISTORY: [...] DENTAL RESTORATIONS; Surgeon: Grabiel Cummings DDS; Location: [facility] [place]; Service: Dental EXTRACTION, TOOTH 02/06/2017 Procedure: EXTRACTION, TOOTH; Surgeon: Noé Drew DDS; Location: PERIOPERATIVE SERVICES; Service: Dental UNLISTED PROCEDURE, DENTOALVEOLAR STRUCTURES 04/29/10 X-RAY EXAM OF TEETH. [id number] 04/29/10 Pertinent Social History Reviewed Social History [...] fever, chills, night sweats, and weight loss MANAGER COMMUNITY: H/o seizures Respiratory: No h/o COPD, asthma dyspnea or recent URI Cardiovascular: No h/o chest pain/[place]/CHF/valvular disease/HTN GI: Constipation : H/o urinary retention [...] N (more content not included)... Normal [facility] Manager Nuclear Authentication Interface Message Text Patient was identified by name and date of . Lashon Parsons Normal [facility] Progress Noteson 09-06-2023 Manager Nuclear Authentication Interface Message Text Parent/guardian(Mag gaines @ [place]) was contacted for PSE AND OR scheduled -- confirmed information with mom, also informed mom importance of receiving PSE call -- if not received surgery will be canceled ----- Wednesday, September 06, 2023 at 11:27:36 AM ----- ----- Provider: Bridget Lombardi Specialist -- Clinic: [place] ----- Normal [facility] Follow Up (Endocrinology)on 03-14-2023 Follow Up [...] Services - Lab To Draw (Blood Test); Due:[id number];Ordered ; For:Hypocalcemia, Hypothyroidism, Low vitamin D level; Ordered By:Erin Ogden; Osmolality, Serum; Status:Active; Requested for:14Mar2023; Perform:Lab Services - Lab To Draw (Blood Test); Due:[id number];Ordered ; For:Hypocalcemia, Hypothyroidism, Low vitamin D level; [...] visit regarding his thyroid. History of Present Dkrmabu3 yo male with severe mental retardation, autism, bipolar disorder,severe psychosis,GERD, HTN , hypercalcemia [facility] with exacerbation by lithium [...] then eats a day after. not on Cherry Tree 300 mg , did not changed since last visit as per sheet . guardian is brother Yogesh nb [phone] seeing GI , EGD was fine. no acute issues. is losing weight again , had a lip biopsy and infected ulcer is healed, weight loss has stopped, on Lt4 50 mcgq day and we need recent albs, slightly more agitated , had a fall with bruise on his face , [place] physician is following. no changes in neuro [...] were norm (more content not included)... Normal [facility] OSMOLALITYon 01-20-2023 Osmolality [Osmolality] 291 mosm/kg Normal 275-295 [facility] Comment on above: Performed By: #### C MP, T4, TSH #### [facility] [address] [place] [address] Dr. Juan Argueta CBC AUTO DIFFon 01-18-2023 BASO # 0.0 103/ul Normal 0.0-0.1 [facility] Comment on above: Performed By: #### C MP, T4, TSH #### [facility] [address] [place] [address] Dr. Juan Argueta Basophils/100 WBC (Bld) 0.6 % Normal 0.2-2.0 [facility] Comment on above: Performed By: #### C MP, T4, TSH #### [facility] [address] [place] [address] Dr. Juan Argueta EO # 0.1 103/ul Normal 0.0-0.7 [facility] Comment on above: Performed By: #### C MP, T4, TSH #### [facility] [address] [place] [address] Dr. Juan Argueta Eosinophils/100 WBC (Bld) 2.8 % Normal 0.9-7.0 [facility] Comment on above: Performed By: #### C MP, T4, TSH #### [facility] [address] [place] [address] Dr. Juan Argueta Erythrocyte distribution width (RBC) [Ratio] 12.9 % Normal 11.0-15.0 [facility] Comment on above: Performed By: #### C MP, T4, TSH #### [facility] [address] [place] [address] Dr. Juan Argueta Hematocrit (Bld) [Volume fraction] 45.4 % Normal 42.0-54.0 [facility] Comment on above: Performed By: #### C MP, T4, TSH #### [facility] [address] [place] [address] Dr. Juan Argueta Hemoglobin (Bld) [Mass/Vol] 15.4 g/dL Normal 14.0-18.0 [facility] Comment on above: Performed By: #### C MP, T4, TSH #### [facility] [address] [place] [address] Dr. Juan Argueta IG # 0.01 10e3/ul Normal 0.00-0.03 [facility] Comment on above: Performed By: #### C MP, T4, TSH #### [facility] [address] [place] [address] Dr. Juan Argueta IG % 0.2 % Normal 0.0-0.5 [facility] Comment on above: Performed By: #### C MP, T4, TSH #### [facility] [address] [place] [address] Dr. Juan Argueta LYMPH # 1.3 103/ul Normal 1.2-3.8 [facility] Comment on above: Performed By: #### C MP, T4, TSH #### [facility] [address] [place] [address] Dr. Juan Argueta Lymphocytes/100 WBC (Bld) 25.1 % Normal 20.5-60.0 [facility] Comment on above: Performed By: #### C MP, T4, TSH #### [facility] [address] [place] [address] Dr. Juan Argueta MANUAL DIFF REQ NO Normal The [facility] Comment on above: Performed By: #### C MP, T4, TSH #### [facility] [address] [place] [address] Dr. Juan Argueta MCH (RBC) [Entitic mass] 28.3 pg Normal 25.9-34.0 [facility] Comment on above: Performed By: #### C MP, T4, TSH #### [facility] [address] [place] [address] Dr. Juan Argueta MCHC (RBC) [Mass/Vol] 33.9 g/dL Normal 29.9-35.2 [facility] Comment on above: Performed By: #### C MP, T4, TSH #### [facility] [address] [place] [address] Dr. Juan Argueta MCV (RBC) [Entitic vol] 83.3 fL Normal 80.0-94.0 [facility] Comment on above: Performed By: #### C MP, T4, TSH #### [facility] [address] [place] [address] Dr. Juan Argueta MONO # 0.3 103/ul Normal 0.3-0.8 [facility] Comment on above: Performed By: #### C MP, T4, TSH #### [facility] [address] [place] [address] Dr. Juan Argueta Monocytes/100 WBC (Bld) 5.9 % Normal 1.7-12.0 [facility] Comment on above: Performed By: #### C MP, T4, TSH #### [facility] [address] [place] [address] Dr. Juan Argueta NEUT # 3.3 103/ul Normal 1.4-6.5 [facility] Comment on above: Performed By: #### C MP, T4, TSH #### [facility] [address] [place] [address] Dr. Juan Argueta Neutrophils/100 WBC (Bld) 65.4 % Normal 43.0-75.0 [facility] Comment on above: Performed By: #### C MP, T4, TSH #### [facility] [address] [place] [address] Dr. Juan Argueta Platelet mean volume (Bld) [Entitic vol] 9.5 fL Normal 9.5-13.5 [facility] Comment on above: Performed By: #### C MP, T4, TSH #### [facility] [address] [place] [address] Dr. Juan Argueta PLT 244 103/ul Normal 150-450 [facility] Comment on above: Performed By: #### C MP, T4, TSH #### [facility] [address] [address] [address] Juan Argueta RBC 5.45 106/ul Normal 4.70-6.10 [facility] Comment on above: Performed By: #### C MP, T4, TSH #### [facility] [address] [address] [address] Juan Argueta WBC 5.1 103/ul Normal 4.0-11.0 [facility] Comment on above: Performed By: #### C MP, T4, TSH #### [facility] [address] [address] [address] Juan Argueta GLYCOHEMOGLOBIN A1Con 2022 ADA RECOMMENDATION SEE BELOW Normal The [facility] Comment on above: Result Comment: ADA RECOMMENDED LIMIT 4.0 - 6.0 ADA THERAPEUTIC TARGET < 7.0 ACTION SUGGESTED > 7.0 Performed By: #### C MP, T4, TSH #### [facility] [address] [address] [address] Juan Argueta Glucose [Mass/Vol] 100 mg/dL Normal [facility] Comment on above: Performed By: #### C MP, T4, TSH #### [facility] [address] [place] [address] Dr. Juan Argueta HbA1c (Bld) [Mass fraction] 5.1 % Normal 4.5-6.2 [facility] Comment on above: Performed By: #### C MP, T4, TSH #### [facility] [address] [address] [address] Juan Argueta PROF 14(COMP METB)on 023 Albumin [Mass/Vol] 4.2 g/dL Normal 3.4-5.0 [facility] Comment on above: Performed By: #### C MP, T4, TSH #### [facility] [address] [place] [address] Dr. Juan Argueta Albumin/Globulin [Mass ratio] 1.0 {ratio} Normal [facility] Comment on above: Performed By: #### C MP, T4, TSH #### [facility] [address] [address] [address] Juan Argueta ALP [Catalytic activity/Vol] 152 U/L Critically high 46-116 [facility] Comment on above: Performed By: #### C MP, T4, TSH #### [facility] [address] [address] [address] Juan Argueta ALT [Catalytic activity/Vol] 34 U/L Normal 16-63 [facility] Comment on above: Performed By: #### C MP, T4, TSH #### [facility] [address] [address] [address] Juan Argueta Anion gap [Moles/Vol] 12.0 mmol/L Normal [facility] Comment on above: Performed By: #### C MP, T4, TSH #### [facility] [address] [address] [address] Juan Argueta AST [Catalytic activity/Vol] 31 U/L Normal 15-37 [facility] Comment on above: Performed By: #### C MP, T4, TSH #### [facility] [address] [address] [address] Juan Argueta Bilirubin [Mass/Vol] 0.2 mg/dL Normal 0.2-1.0 [facility] Comment on above: Performed By: #### C MP, T4, TSH #### [facility] [address] [address] [address] Juan Argueta Calcium [Mass/Vol] 9.4 mg/dL Normal 8.5-10.1 [facility] Comment on above: Performed By: #### C MP, T4, TSH #### [facility] [address] [address] [address] Juan Argueta Chloride [Moles/Vol] 104 mmol/L Normal 98-107 [facility] Comment on above: Performed By: #### C MP, T4, TSH #### [facility] [address] [address] [address] Juan Argueta CO2 [Moles/Vol] 26.5 mmol/L Normal 21.0-32.0 [facility] Comment on above: Performed By: #### C MP, T4, TSH #### [facility] [address] [address] [address] Juan Argueta Creatinine [Mass/Vol] 1.60 mg/dL Critically high 0.70-1.30 [facility] Comment on above: Performed By: #### C MP, T4, TSH #### [facility] [address] [address] [address] Juan Argueta EGFR-AF TUNISIAN >60 Normal >=60 [facility] Comment on above: Performed By: #### C MP, T4, TSH #### [facility] [address] [address] [address] Juan Argueta EGFR-NON AF TUNISIAN 51 mL/min/1.73m2 Critically low >=60 [facility] Comment on above: Performed By: #### C MP, T4, TSH #### [facility] [address] [address] [address] Juan Argueta Globulin (S) [Mass/Vol] 4.1 g/dL Normal [facility] Comment on above: Performed By: #### C MP, T4, TSH #### [facility] [address] [address] [address] Juan Argueta Glucose [Mass/Vol] 95 mg/dL Normal 74-106 [facility] Comment on above: Performed By: #### C MP, T4, TSH #### [facility] [address] [address] [address] Juan Argueta Potassium [Moles/Vol] 4.5 mmol/L Normal 3.5-5.1 [facility] Comment on above: Performed By: #### C MP, T4, TSH #### [facility] [address] [address] [address] Juan Argueta Protein [Mass/Vol] 8.3 g/dL Critically high 6.4-8.2 [facility] Comment on above: Performed By: #### C MP, T4, TSH #### [facility] [address] [address] [address] Juan Argueta Sodium [Moles/Vol] 138 mmol/L Normal 136-145 [facility] Comment on above: Performed By: #### C MP, T4, TSH #### [facility] [address] [address] [address] Juan Argueta Urea nitrogen [Mass/Vol] 22.0 mg/dL Critically high 7.0-18.0 [facility] Comment on above: Performed By: #### C MP, T4, TSH #### [facility] [address] [address] [address] Juan Argueta Urea nitrogen/Creatinine [Mass ratio] 13.8 mg/mg Normal [facility] Comment on above: Performed By: #### C MP, T4, TSH #### [facility] [address] [place] [address] Dr. Juan Argueta T4on 01-18-2023 T4 [Mass/Vol] 3.20 ug/dL Critically low 4.50-12.10 [facility] Comment on above: Performed By: #### C MP, T4, TSH #### [facility] [address] [place] [address] Dr. Juan Argueta TSHon 01-18-2023 TSH 2.037 uIU/mL Normal 0.358-3.740 [facility] Comment on above: Performed By: #### C MP, T4, TSH #### [facility] [address] [place] [address] Dr. Juan Argueta US THYROIDon 01-04-2023 US [...] by: LUIS FERMIN Date: 2023-01-04 15:52 Normal [facility] OSMOLALITYon 10-06-2022 Osmolality [Osmolality] 307 mosm/kg Critically high 275-295 [facility] Comment on above: Performed By: #### C MP, T4, TSH #### [facility] [address] [address] [address] Juan Argueta T3, TOTAL (TRIIODOTHYRONINE) on 10-05-2022 T3, TOTAL 52 ng/dL Critically low 71-180 [facility] Comment on above: Performed By: #### C MP, T4, TSH #### [facility] [address] [address] [address] Juan Argueta GLYCOHEMOGLOBIN A1Con 2021 ADA RECOMMENDATION SEE BELOW Normal [facility] Comment on above: Result Comment: ADA RECOMMENDED LIMIT 4.0 - 6.0 ADA THERAPEUTIC TARGET < 7.0 ACTION SUGGESTED > 7.0 Performed By: #### C MP, T4, TSH #### [facility] [address] [place] [address] Dr. Juan Argueta Glucose [Mass/Vol] 105 mg/dL Normal [facility] Comment on above: Performed By: #### C MP, T4, TSH #### [facility] [address] [place] [address] Dr. Juan Argueta HbA1c (Bld) [Mass fraction] 5.3 % Normal 4.5-6.2 [facility] Comment on above: Performed By: #### C MP, T4, TSH #### [facility] [address] [place] [address] Dr. Juan Argueta PROF 14(COMP METB)on 022 Albumin [Mass/Vol] 4.2 g/dL Normal 3.4-5.0 [facility] Comment on above: Performed By: #### T SH, CMP #### [facility] [address] [place] [address] Dr. Juan Argueta Albumin/Globulin [Mass ratio] 1.1 {ratio} Normal [facility] Comment on above: Performed By: #### T SH, CMP #### [facility] [address] [place] [address] Dr. Juan Argueta ALP [Catalytic activity/Vol] 122 U/L Critically high 46-116 [facility] Comment on above: Performed By: #### T SH, CMP #### [facility] [address] [address] [address] Juan Argueta ALT [Catalytic activity/Vol] 53 U/L Normal 16-63 [facility] Comment on above: Performed By: #### T SH, CMP #### [facility] [address] [address] [address] Juan Argueta Anion gap [Moles/Vol] 12.4 mmol/L Normal [facility] Comment on above: Performed By: #### T SH, CMP #### [facility] [address] [address] [address] Juan Argueta AST [Catalytic activity/Vol] 22 U/L Normal 15-37 [facility] Comment on above: Performed By: #### T SH, CMP #### [facility] [address] [place] [address] Dr. Juan Argueta Bilirubin [Mass/Vol] 0.2 mg/dL Normal 0.2-1.0 [facility] Comment on above: Performed By: #### T SH, CMP #### [facility] [address] [address] [address] Juan Argueta Calcium [Mass/Vol] 9.6 mg/dL Normal 8.5-10.1 [facility] Comment on above: Performed By: #### T SH, CMP #### [facility] [address] [place] [address] Dr. Juan Argueta Chloride [Moles/Vol] 108 mmol/L Critically high 98-107 [facility] Comment on above: Performed By: #### T SH, CMP #### [facility] [address] [address] [address] Juan Argueta CO2 [Moles/Vol] 28.8 mmol/L Normal 21.0-32.0 [facility] Comment on above: Performed By: #### T SH, CMP #### [facility] [address] [address] [address] Juan Argueta Creatinine [Mass/Vol] 1.77 mg/dL Critically high 0.70-1.30 [facility] Comment on above: Performed By: #### T SH, CMP #### [facility] [address] [address] [address] Juan Argueta EGFR-AF TUNISIAN 55 mL/min/1.73m2 Critically low >=60 [facility] Comment on above: Performed By: #### T SH, CMP #### [facility] [address] [address] [address] Juan Argueta EGFR-NON AF TUNISIAN 45 mL/min/1.73m2 Critically low >=60 [facility] Comment on above: Performed By: #### T SH, CMP #### [facility] [address] [address] [address] Juan Argueta Globulin (S) [Mass/Vol] 3.7 g/dL Normal [facility] Comment on above: Performed By: #### T SH, CMP #### [facility] [address] [address] [address] Juan Argueta Glucose [Mass/Vol] 94 mg/dL Normal 74-106 [facility] Comment on above: Performed By: #### T SH, CMP #### [facility] [address] [address] [address] Juan Argueta Potassium [Moles/Vol] 4.2 mmol/L Normal 3.5-5.1 [facility] Comment on above: Performed By: #### T SH, CMP #### [facility] [address] [address] [address] Juan Argueta Protein [Mass/Vol] 7.9 g/dL Normal 6.4-8.2 [facility] Comment on above: Performed By: #### T SH, CMP #### [facility] [address] [address] [address] Juan Argueta Sodium [Moles/Vol] 145 mmol/L Normal 136-145 [facility] Comment on above: Performed By: #### T SH, CMP #### [facility] [address] [address] [address] Juan Argueta Urea nitrogen [Mass/Vol] 28.0 mg/dL Critically high 7.0-18.0 [facility] Comment on above: Performed By: #### T SH, CMP #### [facility] [address] [place] [address] Dr. Juan Argueta Urea nitrogen/Creatinine [Mass ratio] 15.8 mg/mg Normal [facility] Comment on above: Performed By: #### T SH, CMP #### [facility] [address] [place] [address] Dr. Juan Argueta TSHon 10-04-2022 TSH 1.456 uIU/mL Normal 0.358-3.740 [facility] Comment on above: Performed By: #### T SH, CMP #### [facility] [address] [place] [address] Dr. Juan Argueta VITAMIN D 25 OHon 10-04-2022 VIT D 25-OH 51.1 ng/mL Normal [facility] Comment on above: Performed By: #### C MP, T4, TSH #### [facility] [address] [place] [address] Dr. Juan Argueta VIT D RANGES SEE BELOW Normal [facility] Comment on above: Result Comment: <20 ng/mL Vit D deficient 20 - <30 ng/mL Vit D insufficient 30 - 100 ng/mL Vit D sufficient >100 ng/mL Potential Toxicity Performed By: #### C MP, T4, TSH #### [facility] [address] [place] [address] Dr. Juan Argueta Follow Up (Endocrinology)on 09-30-2022 [...] Services - Lab To Draw (Blood Test); Due:[id number];Ordered ; For:Hypocalcemia, Hypothyroidism, Low vitamin D level, Multinodular goiter; Ordered By:Erin Ogden; Osmolality, Serum; Status:Active; Requested for:30Sep2022; Perform:Lab Services - Lab To Draw (Blood Test); Due:[id number];Ordered ; For:Hypocalcemia, Hypothyroidism, Low vitamin D level, Multinodular goiter; Ordered By:Erin Ogden; Osmolality, Urine Spot; Status:Active; Requested for:30Sep2022; Perform:Lab Services - Lab To Draw (Non-Blood Test); Due:[id number];Ordered ; For:Hypocalcemia, Hypothyroidism, Low vitamin D level, Multinodular goiter; Ordered By:Erin Ogden; TSH WITH REFLEX TO FREE T4 IF ABNORMAL; Status:Active; Requested for:30Sep2022; Perform:Lab Services - Lab To Draw (Blood Test); Due:[id number];Ordered ; For:Hypocalcemia, Hypothyroidism, Low vitamin D level, Multinodular goiter; Ordered By:Erin Ogden; Ultrasound Thyroid; Status:Hold For - Scheduling; Requested for:30Sep2022; Perform: Radiology Services Imaging; Due:[id number];Ordered ; For:Hypocalcemia, Hypothyroidism, Low vitamin D level, Multinodular goiter; Ordered By:Erin Ogden; Radiologist to Determine Optimal Study : Y What are the patient's signs and symptoms? : f/u Vitamin D 25-Hydroxy; Status:Active; Requested for:30Sep2022; Perform:Lab Services - Lab To Draw (Blood Test); Due:[id number];Ordered ; For:Hypocalcemia, Hypothyroidism, Low vitamin D level, [...] low vitamin d levels. History of Present [place]56 yo male with severe mental retardation, autism, bipolar disorder,severe psychosis,GERD, HTN , hypercalcemia [facility] 12/15 [facility] with exacerbation by lithium [...] then eats a day after. not on Cherry [place] 300 mg , did not changed since last visit as per sheet . guardian is brother Yogesh nb [phone] seeing GI , EGD was fine. no acute issues. is losing weight again , had a lip biopsy and infected ulcer is healed, weight loss has stopped, on Lt4 50 mcgq day and we need recent albs, slightly more agitated , had a fall with bruise on his face , [place] physician is following. no changes in neuro [...] 09-20-2022 BASO # 0.1 103/ul Normal 0.0-0.1 [facility] Comment on above: Performed By: #### C MP, T4, TSH #### [facility] [address] [place] [address] Dr. Juan Argueta Basophils/100 WBC (Bld) 1.2 % Normal 0.2-2.0 [facility] Comment on above: Performed By: #### C MP, T4, TSH #### [facility] [address] [place] [address] Dr. Juan Argueta EO # 0.2 103/ul Normal 0.0-0.7 [facility] Comment on above: Performed By: #### C MP, T4, TSH #### [facility] [address] [place] [address] Dr. Juan Argueta Eosinophils/100 WBC (Bld) 5.0 % Normal 0.9-7.0 [facility] Comment on above: Performed By: #### C MP, T4, TSH #### [facility] [address] [place] [address] Dr. Juan Argueta Erythrocyte distribution width (RBC) [Ratio] 12.8 % Normal 11.0-15.0 [facility] Comment on above: Performed By: #### C MP, T4, TSH #### [facility] [address] [place] [address] Dr. Juan Argueta Hematocrit (Bld) [Volume fraction] 42.0 % Normal 42.0-54.0 [facility] Comment on above: Performed By: #### C MP, T4, TSH #### [facility] [address] [place] [address] Dr. Juan Argueta Hemoglobin (Bld) [Mass/Vol] 14.0 g/dL Normal 14.0-18.0 [facility] Comment on above: Performed By: #### C MP, T4, TSH #### [facility] [address] [place] [address] Dr. Juan Argueta IG # 0.01 10e3/ul Normal 0.00-0.03 [facility] Comment on above: Performed By: #### C MP, T4, TSH #### [facility] [address] [address] [address] Juan Argueta IG % 0.2 % Normal 0.0-0.5 [facility] Comment on above: Performed By: #### C MP, T4, TSH #### [facility] [address] [place] [address] Dr. Juan Argueta LYMPH # 1.5 103/ul Normal 1.2-3.8 [facility] Comment on above: Performed By: #### C MP, T4, TSH #### [facility] [address] [place] [address] Dr. Juan Argueta Lymphocytes/100 WBC (Bld) 34.9 % Normal 20.5-60.0 [facility] Comment on above: Performed By: #### C MP, T4, TSH #### [facility] [address] [place] [address] Dr. Juan Argueta MANUAL DIFF REQ NO Normal [facility] Comment on above: Performed By: #### C MP, T4, TSH #### [facility] [address] [place] [address] Dr. Juan Argueta MCH (RBC) [Entitic mass] 29.0 pg Normal 25.9-34.0 [facility] Comment on above: Performed By: #### C MP, T4, TSH #### [facility] [address] [place] [address] Dr. Juan Argueta MCHC (RBC) [Mass/Vol] 33.3 g/dL Normal 29.9-35.2 [facility] Comment on above: Performed By: #### C MP, T4, TSH #### [facility] [address] [place] [address] Dr. Juan Argueta MCV (RBC) [Entitic vol] 87.0 fL Normal 80.0-94.0 [facility] Comment on above: Performed By: #### C MP, T4, TSH #### [facility] [address] [place] [address] Dr. Juan Argueta MONO # 0.3 103/ul Normal 0.3-0.8 [facility] Comment on above: Performed By: #### C MP, T4, TSH #### [facility] [address] [place] [address] Dr. Juan Argueta Monocytes/100 WBC (Bld) 6.8 % Normal 1.7-12.0 [facility] Comment on above: Performed By: #### C MP, T4, TSH #### [facility] [address] [place] [address] Dr. Juan Argueta NEUT # 2.2 103/ul Normal 1.4-6.5 [facility] Comment on above: Performed By: #### C MP, T4, TSH #### [facility] [address] [place] [address] Dr. Juan Argueta Neutrophils/100 WBC (Bld) 51.9 % Normal 43.0-75.0 [facility] Comment on above: Performed By: #### C MP, T4, TSH #### [facility] [address] [place] [address] Dr. Juan Argueta Platelet mean volume (Bld) [Entitic vol] 10.1 fL Normal 9.5-13.5 [facility] Comment on above: Performed By: #### C MP, T4, TSH #### [facility] [address] [place] [address] Dr. Juan Argueta PLT 252 103/ul Normal 150-450 [facility] Comment on above: Performed By: #### C MP, T4, TSH #### [facility] [address] [place] [address] Dr. Juan Argueta RBC 4.83 106/ul Normal 4.70-6.10 [facility] Comment on above: Performed By: #### C MP, T4, TSH #### [facility] [address] [place] [address] Dr. Juan Argueta WBC 4.2 103/ul Normal 4.0-11.0 [facility] Comment on above: Performed By: #### C MP, T4, TSH #### [facility] [address] [place] [address] Dr. Juan Argueta FREE T4on 09-20-2022 Free T4 [Mass/Vol] 0.50 ng/dL Critically low 0.76-1.46 [facility] Comment on above: Performed By: #### B 12FOL, FT4 #### [facility] [address] [place] [address] Dr. Juan Argueta PROF 14(COMP METB)on 022 Albumin [Mass/Vol] 4.1 g/dL Normal 3.4-5.0 [facility] Comment on above: Performed By: #### C MP, T4, TSH #### [facility] [address] [place] [address] Dr. Juan Argueta Albumin/Globulin [Mass ratio] 1.1 {ratio} Normal [facility] Comment on above: Performed By: #### C MP, T4, TSH #### [facility] [address] [place] [address] Dr. Juan Argueta ALP [Catalytic activity/Vol] 107 U/L Normal 46-116 [facility] Comment on above: Performed By: #### C MP, T4, TSH #### [facility] [address] [place] [address] Dr. Juan Argueta ALT [Catalytic activity/Vol] 79 U/L Critically high 16-63 [facility] Comment on above: Performed By: #### C MP, T4, TSH #### [facility] [address] [place] [address] Dr. Juan Argueta Anion gap [Moles/Vol] 8.4 mmol/L Normal [facility] Comment on above: Performed By: #### C MP, T4, TSH #### [facility] [address] [place] [address] Dr. Juan Argueta AST [Catalytic activity/Vol] 32 U/L Normal 15-37 [facility] Comment on above: Performed By: #### C MP, T4, TSH #### [facility] [address] [address] [address] Juan Argueta Bilirubin [Mass/Vol] 0.2 mg/dL Normal 0.2-1.0 [facility] Comment on above: Performed By: #### C MP, T4, TSH #### [facility] [address] [place] [address] Dr. Juan Argueta Calcium [Mass/Vol] 9.2 mg/dL Normal 8.5-10.1 [facility] Comment on above: Performed By: #### C MP, T4, TSH #### [facility] [address] [place] [address] Dr. Juan Argueta Chloride [Moles/Vol] 104 mmol/L Normal 98-107 [facility] Comment on above: Performed By: #### C MP, T4, TSH #### [facility] [address] [place] [address] Dr. Juan Argueta CO2 [Moles/Vol] 30.2 mmol/L Normal 21.0-32.0 [facility] Comment on above: Performed By: #### C MP, T4, TSH #### [facility] [address] [place] [address] Dr. Juan Argueta Creatinine [Mass/Vol] 1.67 mg/dL Critically high 0.70-1.30 [facility] Comment on above: Performed By: #### C MP, T4, TSH #### [facility] [address] [place] [address] Dr. Juan Argueta EGFR-AF TUNISIAN 58 mL/min/1.73m2 Critically low >=60 [facility] Comment on above: Performed By: #### C MP, T4, TSH #### [facility] [address] [place] [address] Dr. Juan Argueta EGFR-NON AF TUNISIAN 48 mL/min/1.73m2 Critically low >=60 [facility] Comment on above: Performed By: #### C MP, T4, TSH #### [facility] [address] [address] [address] Juan Argueta Globulin (S) [Mass/Vol] 3.6 g/dL Normal [facility] Comment on above: Performed By: #### C MP, T4, TSH #### [facility] [address] [address] [address] Juan Argueta Glucose [Mass/Vol] 94 mg/dL Normal 74-106 [facility] Comment on above: Performed By: #### C MP, T4, TSH #### [facility] [address] [place] [address] Dr. Juan Argueta Potassium [Moles/Vol] 4.6 mmol/L Normal 3.5-5.1 [facility] Comment on above: Performed By: #### C MP, T4, TSH #### [facility] [address] [place] [address] Dr. Juan Argueta Protein [Mass/Vol] 7.7 g/dL Normal 6.4-8.2 [facility] Comment on above: Performed By: #### C MP, T4, TSH #### [facility] [address] [place] [address] Dr. Juan Argueta Sodium [Moles/Vol] 138 mmol/L Normal 136-145 [facility] Comment on above: Performed By: #### C MP, T4, TSH #### [facility] [address] [place] [address] Dr. Juan Argueta Urea nitrogen [Mass/Vol] 28.0 mg/dL Critically high 7.0-18.0 [facility] Comment on above: Performed By: #### C MP, T4, TSH #### [facility] [address] [place] [address] Dr. Juan Argueta Urea nitrogen/Creatinine [Mass ratio] 16.8 mg/mg Normal [facility] Comment on above: Performed By: #### C MP, T4, TSH #### [facility] [address] [place] [address] Dr. Juan Argueta TSHon 09-20-2022 TSH 1.895 uIU/mL Normal 0.358-3.740 [facility] Comment on above: Performed By: #### C MP, T4, TSH #### [facility] [address] [place] [address] Dr. Juan Argueta VIT B12 AND FOLATEon 022 Cobalamin (Vitamin B12) [Mass/Vol] 350.0 pg/mL Normal 193.0-986.0 [facility] Comment on above: Performed By: #### B 12FOL, FT4 #### [facility] [address] [place] [address] Dr. Juan Argueta FOLATE 16.40 ng/mL Normal 8.60-58.90 [facility] Comment on above: Performed By: #### B 12FOL, FT4 #### [facility] [address] [place] [address] Dr. Juan Argueta VITAMIN D 25 OHon 09-20-2022 VIT D 25-OH 49.9 ng/mL Normal [facility] Comment on above: Performed By: #### V ITAD #### [facility] [address] [place] [address] Dr. Juan Argueta VIT D RANGES SEE BELOW Normal [facility] Comment on above: Result Comment: <20 ng/mL Vit D deficient 20 - <30 ng/mL Vit D insufficient 30 - 100 ng/mL Vit D sufficient >100 ng/mL Potential Toxicity Performed By: #### V ITAD #### [facility] [address] [place] [address] Dr. Juan Argueta CBC AUTO DIFFon 09-10-2022 BASO # 0.0 103/ul Normal 0.0-0.1 [facility] Comment on above: Performed By: #### C BC #### [facility] [address] [place] [address] Dr. Juan Argueta Basophils/100 WBC (Bld) 0.3 % Normal 0.2-2.0 [facility] Comment on above: Performed By: #### C BC #### [facility] [address] [place] [address] Dr. Juan Argueta EO # 0.1 103/ul Normal 0.0-0.7 [facility] Comment on above: Performed By: #### C BC #### [facility] [address] [place] [address] Dr. Juan Argueta Eosinophils/100 WBC (Bld) 1.5 % Normal 0.9-7.0 [facility] Comment on above: Performed By: #### C BC #### [facility] [address] [place] [address] Dr. Juan Argueta Erythrocyte distribution width (RBC) [Ratio] 12.8 % Normal 11.0-15.0 [facility] Comment on above: Performed By: #### C BC #### [facility] [address] [place] [address] Dr. Juan Argueta Hematocrit (Bld) [Volume fraction] 38.6 % Critically low 42.0-54.0 [facility] Comment on above: Performed By: #### C BC #### [facility] [address] [place] [address] Dr. Juan Argueta Hemoglobin (Bld) [Mass/Vol] 13.2 g/dL Critically low 14.0-18.0 [facility] Comment on above: Performed By: #### C BC #### [facility] [address] [place] [address] Dr. Juan Argueta IG # 0.02 10e3/ul Normal 0.00-0.03 [facility] Comment on above: Performed By: #### C BC #### [facility] [address] [place] [address] Dr. Juan Argueta IG % 0.2 % Normal 0.0-0.5 [facility] Comment on above: Performed By: #### C BC #### [facility] [address] [place] [address] Dr. Juan Argueta LYMPH # 0.9 103/ul Critically low 1.2-3.8 [facility] Comment on above: Performed By: #### C BC #### [facility] [address] [place] [address] Dr. Juan Argueta Lymphocytes/100 WBC (Bld) 10.0 % Critically low 20.5-60.0 [facility] Comment on above: Performed By: #### C BC #### [facility] [address] [place] [address] Dr. Juan Argueta MANUAL DIFF REQ NO Normal [facility] Comment on above: Performed By: #### C BC #### [facility] [address] [place] [address] Dr. Juan Argueta MCH (RBC) [Entitic mass] 29.2 pg Normal 25.9-34.0 [facility] Comment on above: Performed By: #### C BC #### [facility] [address] [place] [address] Dr. Juan Argueta MCHC (RBC) [Mass/Vol] 34.2 g/dL Normal 29.9-35.2 [facility] Comment on above: Performed By: #### C BC #### [facility] [address] [place] [address] Dr. Juan Argueta MCV (RBC) [Entitic vol] 85.4 fL Normal 80.0-94.0 [facility] Comment on above: Performed By: #### C BC #### [facility] [address] [place] [address] Dr. Juan Argueta MONO # 0.5 103/ul Normal 0.3-0.8 [facility] Comment on above: Performed By: #### C BC #### [facility] [address] [place] [address] Dr. Juan Argueta Monocytes/100 WBC (Bld) 5.3 % Normal 1.7-12.0 [facility] Comment on above: Performed By: #### C BC #### [facility] [address] [place] [address] Dr. Juan Argueta NEUT # 7.4 103/ul Critically high 1.4-6.5 [facility] Comment on above: Performed By: #### C BC #### [facility] [address] [place] [address] Dr. Juan Argueta Neutrophils/100 WBC (Bld) 82.7 % Critically high 43.0-75.0 [facility] Comment on above: Performed By: #### C BC #### [facility] [address] [place], [place] [address] Dr. Juan Argueta Platelet mean volume (Bld) [Entitic vol] 9.8 fL Normal 9.5-13.5 [facility] Comment on above: Performed By: #### C BC #### [facility] [id number] [address] Juan Argueta PLT 226 103/ul Normal 150-450 [facility] Comment on above: Performed By: #### C BC #### [facility] [address] [address] [address] Juan Argueta RBC 4.52 106/ul Critically low 4.70-6.10 [facility] Comment on above: Performed By: #### C BC #### [facility] [address] [address] [address] Juan Argueta WBC 8.9 103/ul Normal 4.0-11.0 [facility] Comment on above: Performed By: #### C BC #### [facility] [address] [place], [place] [address] HEAD WO CONon [...] JON PARKS Date: 2022-09-10 12:09 Normal [facility] PROF 14(COMP METB)on 09-10- 022 Albumin [Mass/Vol] 4.1 g/dL Normal 3.4-5.0 [facility] Comment on above: Performed By: #### C MP #### [facility] [address] [place] [address] Dr. Juan Argueta Albumin/Globulin [Mass ratio] 1.2 {ratio} Normal [facility] Comment on above: Performed By: #### C MP #### [facility] [address] [place] [address] Dr. Juan Argueta ALP [Catalytic activity/Vol] 100 U/L Normal 46-116 [facility] Comment on above: Performed By: #### C MP #### [facility] [address] [place] [address] Dr. Juan Argueta ALT [Catalytic activity/Vol] 39 U/L Normal 16-63 [facility] Comment on above: Performed By: #### C MP #### [facility] [address] [place] [address] Dr. Juan Argueta Anion gap [Moles/Vol] 16.5 mmol/L Normal [facility] Comment on above: Performed By: #### C MP #### [facility] [address] [place] [address] Dr. Juan Argueta AST [Catalytic activity/Vol] 35 U/L Normal 15-37 [facility] Comment on above: Performed By: #### C MP #### [facility] [address] [place] [address] Dr. Juan Argueta Bilirubin [Mass/Vol] 0.3 mg/dL Normal 0.2-1.0 [facility] Comment on above: Performed By: #### C MP #### [facility] [address] [place] [address] Dr. Juan Argueta Calcium [Mass/Vol] 8.2 mg/dL Critically low 8.5-10.1 [facility] Comment on above: Performed By: #### C MP #### [facility] [address] [place] [address] Dr. Juan Argueta Chloride [Moles/Vol] 101 mmol/L Normal 98-107 [facility] Comment on above: Performed By: #### C MP #### [facility] [address] [address] [address] Juan Argueta CO2 [Moles/Vol] 18.8 mmol/L Critically low 21.0-32.0 [facility] Comment on above: Performed By: #### C MP #### [facility] [address] [address] [address] Juan Argueta Creatinine [Mass/Vol] 1.37 mg/dL Critically high 0.70-1.30 [facility] Comment on above: Performed By: #### C MP #### [facility] [address] [address] [address] Juan Argueta EGFR-AF TUNISIAN >60 Normal >=60 [facility] Comment on above: Performed By: #### C MP #### [facility] [address] [place] [address] Dr. Juan Argueta EGFR-NON AF TUNISIAN >60 Normal >=60 [facility] Comment on above: Performed By: #### C MP #### [facility] [address] [place] [address] Dr. Juan Argueta Globulin (S) [Mass/Vol] 3.3 g/dL Normal [facility] Comment on above: Performed By: #### C MP #### [facility] [address] [address] [address] Juan Argueta Glucose [Mass/Vol] 103 mg/dL Normal 74-106 [facility] Comment on above: Performed By: #### C MP #### [facility] [address] [place] [address] Dr. Juan Argueta Potassium [Moles/Vol] 4.3 mmol/L Normal 3.5-5.1 [facility] Comment on above: Performed By: #### C MP #### [facility] [address] [place] [address] Dr. Juan Argueta Protein [Mass/Vol] 7.4 g/dL Normal 6.4-8.2 [facility] Comment on above: Performed By: #### C MP #### [facility] [address] [place], [place] [address] Dr. Juan Argueta Sodium [Moles/Vol] 132 mmol/L Critically low 136-145 [facility] Comment on above: Performed By: #### C MP #### [facility] [id number] [address] Juan Argueta Urea nitrogen [Mass/Vol] 23.0 mg/dL Critically high 7.0-18.0 [facility] Comment on above: Performed By: #### C MP #### [facility] [address] [place], [place] [address] Dr. Juan Argueta Urea nitrogen/Creatinine [Mass ratio] 16.8 mg/mg Normal [facility] Comment on above: Performed By: #### C MP #### [facility] [id number] Juan Argueta CT HEAD WO CONon [...] RISA PENNY Date: 2022-07-19 10:21 Normal [facility] Follow Up (Endocrinology)on 03-25-2022 Follow Up [...] Services - Lab To Draw (Blood Test); Due:[id number];Ordered ; For:Hypothyroidism, Low vitamin D level; Ordered By:Erin Ogden; TSH - Thyroid Stimulating Hormone, Serum; Status:Active; Requested for:[id number]; Perform:Lab Services - Lab To Draw (Blood Test); Due:[id number];Ordered ; For:Hypothyroidism, Low vitamin D level; Ordered [...] visit hypothyrpidism and hypercalcemia History of Present Fnfdtir89 yo male with severe mental retardation, autism, [...] then eats a day after. not on Cherry Tree 300 mg , did not changed since last visit as per sheet . guardian is brother Yogesh nb [phone] seeing GI , EGD was fine. no acute issues. is losing weight again , had a lip biopsy and infected ulcer is healed, weight loss has stopped, on Lt4 50 mcgq day and we need recent albs, slightly more agitated , had a fall with bruise on his face , [place] physician is following. no changes in neuro exam. TSH was normal on labs , , calcium and sodium normal, no acute issues (more content not included)... Normal [facility] XR MODIFIED BARIUM SWALLOWon 09-11-2020 No radiographic evidence of tracheal aspiration. For further information as well as dietary recommendations, please refer to the speech pathologist's detailed report. [employer] Workstation ID: [id number] [facility] EXAMINATION: XR MODIFIED BARIUM SWALLOW HISTORY: Dx: [...] no evidence of penetration or tracheal aspiration. [facility] Interface, Rad In [employer] Speechq - 09/11/2020 10:03 PM EDT EXAMINATION: [...] refer to the speech pathologist's detailed report. [employer] Workstation ID: [id number] [facility] XR MODIFIED BARIUM SWALLOW EXAMINATION: XR MODIFIED [...] refer to the speech pathologist's detailed report. [employer] Workstation ID: [id number] Dictated by: BRANDAN CERVANTES on MonSep 11, 2020 2:10:21 PM EDT Transcribed by: BONIFACIO IBARRA on MonSep 11, 2020 2:53:24 PM EDT Finalized by: BRANDAN CERVANTES on MonSep 11, 2020 10:00:27 PM EDT Normal [facility] Comment on above: Order Comment: Miriam [...] at the following links: For Healthcare Providers: https://www.fda.gov/media/577342/download For Patients: https://www.fda.gov/media/923634/download Performed By: #### L [id number] #### [facility] [address] Rustam Morillo M.D. [id number] CT ABDOMEN PELVIS W IV CONTR Vicky [...] Grabiel Aleman MD 08/09/19 Final result Normal [facility] Surgical Pathologyon 10-17-2 018 Surgical Pathology (NOTE) [id number] [facility] [address] [place], [place] [id number] SURGICAL PATHOLOGY REPORT Patient Name: MARKEL LI MR#: [id number] Specimen #[id number] Final Diagnosis SPECIMEN A : SMALL BOWEL, [...] loss; EGD biopsy; colonoscopy, hemorrhoids; formalin time: Q=7591, Y=4334 Source: A: Small bowel biopsies B: Gastric [...] examination confirms the final pathologic diagnosis. Normal [facility] Comment on above: Performed By: #### P PPES #### [facility] [address] [place], [place] [id number] Vital Signs Date Time Vital Sign Value Performing Clinician Angelyi mickey 05-15-2024 12:03-0400 Body height 185.4 cm Bree Whiting MD Work Phone: [facility] 05-15-2024 12:03-0400 Body mass index (BMI) [Ratio] 26.91 kg/m2 Bree Whiting MD Work Phone: [facility] 05-15-2024 12:03-0400 Body weight 92.53 kg Bree Whiting MD Work Phone: [facility] 05-15-2024 12:03-0400 Diastolic blood pressure 66 mm[Hg] Bree Whiting MD Work Phone: [facility] 05-15-2024 12:03-0400 Heart rate 61 /min Bree Whiting MD Work Phone: [facility] 05-15-2024 12:03-0400 Systolic blood pressure 102 mm[Hg] Bree Whiting MD Work Phone: [facility] 11-15-2023 10:44-0500 Body height 182.9 cm Bree Whiting MD Work Phone: [facility] 11-15-2023 10:44-0500 Body mass index (BMI) [Ratio] 27.67 kg/m2 Bree Whiting MD Work Phone: [facility] 11-15-2023 10:44-0500 Body weight 92.53 kg Bree Whiting MD Work Phone: [facility] 10-02-2023 15:17-0500 Body temperature 96.8 [degF] Tyrese Alexander DDS Work Phone: [facility] 10-02-2023 15:17-0500 Diastolic blood pressure 91 mm[Hg] Tyrese Alexander DDS Work Phone: [facility] 10-02-2023 15:17-0500 Heart rate 58 /min Tyrese Alexander DDS Work Phone: [facility] 10-02-2023 15:17-0500 Respiratory rate 22 /min Tyrese Alexander DDS Work Phone: [facility] 10-02-2023 15:17-0500 SaO2% (BldA) [Mass fraction] 100 % Tyrese Alexander DDS Work Phone: [facility] 10-02-2023 15:17-0500 Systolic blood pressure 141 mm[Hg] Tyrese Alexander DDS Work Phone: [facility] 10-02-2023 11:35-0500 Body height 177.8 cm Tyrese Alexander [employer] Work Phone: [facility] 10-02-2023 11:35-0500 Body mass index (BMI) [Ratio] 29.27 kg/m2 Tyrese Alexander [employer] [facility] Phone[facility] 10-02-2023 11:35-0500 Body weight 92.53 kg Tyrese Alexander [employer] Work Phone: [facility] 09-15-2023 15:07-0400 Body height 179 cm Bola Claire MD Work Phone: [facility] 09-15-2023 15:07-0400 Body mass index (BMI) [Ratio] 28.97 kg/m2 Bola Claire MD Work Phone: [facility] 09-15-2023 15:07-0400 Body temperature 97.7 [degF] Bola Claire MD Work Phone: [facility] 09-15-2023 15:07-0400 Body weight 92.81 kg Bola Claire MD Work Phone: [facility] 09-15-2023 15:07-0400 Diastolic blood pressure 72 mm[Hg] Bola Claire MD Work Phone: [facility] 09-15-2023 15:07-0400 Heart rate 58 /min Bola Claire MD [facility] Phone[facility] 09-15-2023 15:07-0400 Respiratory rate 32 /min Bola Claire MD Work Phone[facility] 09-15-2023 15:07-0400 SaO2% (BldA) [Mass fraction] 99 % Bola Claire MD Work Phone[facility] 09-15-2023 15:07-0400 Systolic blood pressure 112 mm[Hg] Bola Claire MD Work Phone: [facility] 03-20-2019 12:52-0400 BMI (Body Mass Index) 22.24 kg/m2 Erin Harveyhi OJ-Xzgnlzmhgcbpo-FOM [place] [address] Work Phone: 03-20-2019 12:52-0400 Body weight 74.39 kg Erin Harveyhi NB-Vewvbgxckqqke-NLM [place] [address] Work Phone: 03-20-2019 12:52-0400 BP Diastolic 72 mm[Hg] Erin Harveyhi XE-Qpsgalkncouag-LIC [place] [address] Work Phone: 03-20-2019 12:52-0400 BP Systolic 103 mm[Hg] Erin Harveyhi IA-Jvjfqjjwtavfb-MSY [place] [address] Work Phone: 03-20-2019 12:52-0400 BSA (Body Surface Area) 1.96 m2 Erin Harveyhi CA-Pjkxxufaagfsk-UXF [place] [address] Work Phone: 03-20-2019 12:52-0400 Height 182.88 cm Erin Harveyhi EH-Fdirwqjdwpibd-XGP [place] [address] Work Phone: 03-20-2019 12:52-0400 Pulse (Heart Rate) 62 /min Erin Harveyhi XN-Lyhwgwdeojspv-RVQ [place] [address] Work Phone: 03-20-2019 12:52-0400 Pulse Oximetry 100 % Erin Harveyhi UF-Mxrsahaheybol-VGS [place] [address] Work Phone: 03-20-2019 12:52-0400 Respiratory Rate 14 /min Erin Pan ZR-Fadxlnkmeljld-MNI [place] [address] Work Phone: Encounters Encounter Date Encounter Type Care Provider Facility Start: 11-15-2024 End: 11-15-2024 ambulatory [facility] Start: 05-15-2024 End: 05-15-2024 ambulatory [facility] Start: 05-15-2024 End: 05-15-2024 Office outpatient visit 15 minutes Bree Whiting MD Work Phone: [facility] [place] Comment on above: Hypothyroidism, unsp ecified type (Primary Dx); History of hypercalcemia; Thyroid nodule; Hyperparathyroidism (Multi) Start: 12-15-2023 End: 12-16-2023 ambulatory RALEIGH EPPS Facility:[facility] Start: 11-15-2023 End: 11-15-2023 Office outpatient visit 25 minutes Bree Whiting MD Work Phone: [facility] [place] Comment on above: Hypercalcemia (Prima ry Dx); Hypothyroidism, unspecified type Start: 10-02-2023 End: 10-02-2023 ambulatory TYRESE ALEXANDER Facility:[facility] Start: 10-02-2023 End: 10-02-2023 Subsequent hospital visit by physician Tyrese Alexander DDS Work Phone: [facility] Start: 10-02-2023 End: 10-03-2023 ambulatory UNKNOWN PROVIDER Facility:[facility] Start: 10-02-2023 End: 10-03-2023 Patient encounter procedure Tyrese Alexander DDS Work Phone: [facility] Start: 09-27-2023 Telephone encounter Cheri mercado RN [facility] Pre Surgical Evaluation Start: 09-19-2023 Telephone encounter Lina rubin RN [facility] Pre Surgical Evaluation Comment on above: Pre-surgical Evaluat ion (Informed Consent & Anesthesia consent obtained) Start: 09-15-2023 Encounter for other preprocedural examination UNKNOWN PROVIDER [facility] Start: 09-15-2023 End: 09-15-2023 ambulatory UNKNOWN PROVIDER Facility:[facility] Start: 09-15-2023 End: 09-15-2023 Patient encounter procedure Pse Anesthesia [facility] Pre Surgical Evaluation Comment on above: Pre-op evaluation (P rimary Dx) Start: 09-15-2023 Admission to [facility] Ramu Jernigan DDS Work Phone: [facility] Start: 09-15-2023 End: 09-15-2023 Office outpatient visit 25 minutes Bola Claire MD Work Phone: [facility] Comment on above: Pre-op exam (Primary Dx); Body mass index (BMI) 28.0-28.9, adult Start: 09-15-2023 End: 09-15-2023 Preprocedural examination done Bola Claire MD Work Phone: [facility] Work Phone: Start: 08-18-2023 Admission to [facility] Carline Mcfarland DDS Work Phone: [facility] Start: 03-14-2023 ambulatory Erin Pan Facility:[id number] Start: 01-18-2023 End: 01-19-[address] RALEIGH EPPS Facility:[facility] Start: 01-04-2023 End: 01-05-[address] RALEIGH EPPS Facility:[facility] Start: 10-04-2022 End: 10-05-[address] DOCTOR MULLER Facility:[facility] Start: 09-30-2022 Office outpatient vi sit 15 minutes Sai Batres Work Phone: [facility] [employer] Work Phone: Start: 09-30-2022 ambulatory Erin Pan Facility:[id number] Start: 09-20-2022 End: 09-21-[address] RALEIGH EPPS Facility:[facility] Start: 09-10-2022 End: 09-10-[address] WES HUGO . Facility:[facility] Start: 07-19-2022 End: 07-19-[address] RALEIGH EPPS Facility:[facility] Start: 03-25-2022 ambulatory Erin Pan Facility:[id number] Start: 03-16-2022 End: 03-21-2022 Patient encounter procedure Viry Gordoncirillo [facility] Work Phone: [facility] Start: 03-07-2022 End: 03-07-2022 ambulatory JAYDE ENRIQUE . Facility:[facility] Start: 09-11-2020 End: 09-12-2020 Patient encounter procedure [facility] Start: 09-11-2020 End: 09-11-2020 Subsequent hospital visit by physician Raleigh Epps Work Phone: [facility] Comment on above: Pharyngeal dysphagia Start: 09-07-2020 End: 09-07-2020 Patient encounter procedure RALEIGH EPPS [facility] Start: 08-09-2019 End: 08-12-2019 Patient encounter procedure [facility] Start: 03-20-2019 Patient encounter procedure Erin Wall Nematollahi OR-Bwzmhtszbunej-HZN [place] [address] Work Phone: Start: 11-21-2018 Patient encounter procedure Erin Davenportollahi CI-Kqoacoquvzokb-VAE [place] [address] Work Phone: Start: 08-29-2018 End: 08-29-2018 Patient encounter procedure [facility] Start: 08-15-2018 Patient encounter procedure Erin Wall Nematollahi CO-Vjsmntjogfmge-JMP [place] [address] Work Phone: Start: 03-16-2018 Patient encounter procedure Erinangelica Wall Nematollahi GJ-Aoalmhmnbsetw-ALJ [place] [address] Work Phone: Start: 11-17-2017 Patient encounter procedure Erinangelica Wall Nematollahi BD-Ijqndvigybcan-DFC [place] [address] Work Phone: Start: 05-26-2017 Patient encounter procedure Erinangelica Wall Nematollahi YX-Cywpzyttsgxcz-RRC [place] [address] Work Phone: Procedures Date Procedure Procedure Detail Performing Clinician Start: 11-15-2024 Follow-up visit Follow-up ROLAND WHITING Start: 09-15-2023 Blood count complete automated Bola Claire MD Work Phone: Start: 09-11-2020 Videofluoroscopy swallow External Transcribed Start: 08-09-2019 Ct abdomen & pelvis w/contrast material ISAM DABOUL Start: 03-20-2019 TSH WITH REFLEX TO F REE T4 IF ABNORMAL [facility] Start: 08-29-2018 DISCHARGE PATIENT ISAM DABOUL [...] 2) Shingles (RZV) Vaccine (1 of 2) [facility] Start: 2041 Zoster Vaccines (1 of 2) Zoster Vaccines (1 of 2) [facility] Start: 03-07-2032 DTaP/Tdap/Td Vaccines (9 - Td or Tdap) DTaP/Tdap/Td Vaccines (9 - Td or Tdap) [facility] Start: 11-15-2026 [facility] Start: 11-15-2024 End: 11-15-2024 Patient encounter procedure 11/15/2024 9:20 AM EST Office Visit [facility] [place] [address] [address] [place] [id number] [place] [address] Department [place] [address] [facility] [place] Start: 09-15-2024 Creatinine measurement Basic Metabolic Panel [facility] Start: 09-13-2024 End: 05-15-2025 25-hydroxyvitamin D3 [Mass/volume] in Serum or Plasma Vitamin D 25-Hydroxy,Total (for eval of Vitamin D levels) Lab Routine History of hypercalcemia Hyperparathyroidism (Multi) Expected: 09/13/2024, Expires: 05/15/2025 [facility] Work Phone: Comment on above: Expected: 09/13/2024, Expires: Start: 09-13-2024 End: 05-15-2025 Magnesium [Mass/volume] in Serum or Plasma Magnesium Lab Routine History of hypercalcemia Expected: 09/13/2024, Expires: 05/15/2025 [facility] Work Phone: Comment on above: Expected: 09/13/2024, Expires: Start: 09-13-2024 End: 05-15-2025 Parathyrin.intact [Mass/volume] in Serum or Plasma Parathyroid Hormone, Intact Lab Routine History of hypercalcemia Expected: 09/13/2024, Expires: 05/15/2025 [facility] Work Phone: Comment on above: Expected: 09/13/2024, Expires: Start: 09-13-2024 End: 05-15-2025 Renal function 2000 panel - Serum or Plasma Renal Function Panel Lab Routine History of hypercalcemia Expected: 09/13/2024, Expires: 05/15/2025 [facility] Work Phone: Comment on above: Expected: 09/13/2024, Expires: Start: 09-13-2024 End: 05-15-2025 Thyrotropin [Units/volume] in Serum or Plasma Thyroid Stimulating Hormone Lab Routine Hypothyroidism, unspecified type Expected: 09/13/2024, Expires: 05/15/2025 [facility] Service Area Work Phone: Comment on above: Expected: 09/13/2024, Expires: Start: 09-13-2024 End: 05-15-2025 Thyroxine (T4) free [Mass/volume] in Serum or Plasma Thyroxine, Free Lab Routine Hypothyroidism, unspecified type Expected: 09/13/2024, Expires: 05/15/2025 [facility] Work Phone: Comment on above: Expected: 09/13/2024, Expires: Start: 07-14-2024 Influenza vaccination Influenza Vaccine (#1) [facility] Start: 05-15-2024 End: 05-15-2025 US Thyroid gland US thyroid Imaging Routine Thyroid nodule Expected: 05/15/2024, Expires: 05/15/2025 [facility] Work Phone: Comment on above: Expected: 05/15/2024, Expires: Start: 05-15-2024 End: 05-15-2024 Patient encounter procedure 05/15/2024 11:40 AM EDT Office Visit [facility] [place] [address] [address] [id number] [place] [address] [address] Department of [place] [address] [facility] [place] Start: 11-15-2023 End: 11-15-2024 Calcitriol [Mass/volume] in Serum or Plasma Vitamin D 1,25 Dihydroxy (for eval of hypercalcemia) Lab Routine Hypercalcemia Expected: 11/15/2023, Expires: 11/15/2024 [facility] Work Phone: Comment on above: Expected: 11/15/2023, Expires: Start: 11-15-2023 End: 11-15-2024 Calcium.ionized [Moles/volume] in Blood Calcium, Ionized Lab Routine Hypercalcemia Expected: 11/15/2023, Expires: 11/15/2024 [facility] Work Phone: Comment on above: Expected: 11/15/2023, Expires: Start: 11-15-2023 End: 11-15-2024 Hepatic function 2000 panel - Serum or Plasma Hepatic Function Panel Lab Routine Hypercalcemia Expected: 11/15/2023, Expires: 11/15/2024 [facility] Work Phone: Comment on above: Expected: 11/15/2023, Expires: Start: 11-15-2023 End: 11-15-2024 Parathyrin.intact [Mass/volume] in Serum or Plasma Parathyroid Hormone, Intact Lab Routine Hypercalcemia Expected: 11/15/2023, Expires: 11/15/2024 [facility] Service Area Work Phone: Comment on above: Expected: 11/15/2023, Expires: Start: 11-15-2023 End: 11-15-2024 Renal function 2000 panel - Serum or Plasma Renal Function Panel Lab Routine Hypercalcemia Expected: 11/15/2023, Expires: 11/15/2024 [facility] Work Phone: Comment on above: Expected: 11/15/2023, Expires: Start: 11-15-2023 End: 11-15-2024 Thyrotropin [Units/volume] in Serum or Plasma Thyroid Stimulating Hormone Lab Routine Hypothyroidism, unspecified type Expected: 11/15/2023, Expires: 11/15/2024 [facility] Work Phone: Comment on above: Expected: 11/15/2023, Expires: Start: 11-15-2023 End: 11-15-2024 Thyroxine (T4) free [Mass/volume] in Serum or Plasma Thyroxine, Free Lab Routine Hypothyroidism, unspecified type Expected: 11/15/2023, Expires: 11/15/2024 [facility] Work Phone: Comment on above: Expected: 11/15/2023, Expires: Start: 10-02-2023 End: 10-02-2023 DENTAL RESTORATIONS DENTAL RESTORATIONS Routine scheduled Caries 10/02/2023 1:10 PM EST [facility] Start: 10-02-2023 End: 10-02-2023 Admission to same day surgery center 10/02/2023 11:24 AM EST - 10/02/2023 1:21 PM EST Surgery [facility] Amb[facility] [address] [place], [place] [id number] Tyrese Alexander, [address] [place] [address] DENTAL RESTORATIONS [facility] Comment on above: DENTAL RESTORATIONS Start: 10-02-2023 End: 10-02-2023 DENTAL RESTORATIONS DENTAL RESTORATIONS Routine scheduled Caries 10/02/2023 11:24 AM EST [facility] Start: 10-02-2023 End: 10-02-2023 Admission to same day surgery center 10/02/2023 7:30 AM EST - 10/02/2023 9:27 AM EST Surgery [facility] Amb[facility] Surgery [address] [place] [address] Tyrese Alexander, DDS [address] [place] [address] DENTAL RESTORATIONS [facility] Comment on above: DENTAL RESTORATIONS Start: 10-02-2023 End: 10-02-2023 DENTAL RESTORATIONS DENTAL RESTORATIONS Routine scheduled Caries 10/02/2023 7:30 AM EST [facility] Start: 10-02-2023 Subsequent hospital visit by physician [facility] Start: 10-02-2023 End: 10-02-2023 [facility] Start: 09-15-2023 End: 09-15-2023 Patient encounter procedure 09/15/2023 2:00 PM EDT Office Visit [facility] [address] [place] [address] Bola Claire MD [address] [place] [address] [facility] Start: 07-14-2023 COVID-19 Vaccine ( season) COVID-19 Vaccine ( season) [facility] Start: 07-14-2023 COVID-19 Vaccine ( season) COVID-19 Vaccine () [facility] Start: 07-14-2023 Influenza vaccination Influenza Vaccine (#1) [facility] Start: 02-09-2021 COVID-19 Vaccine (3 - Pfizer series) COVID-19 Vaccine (3 - Pfizer series) [facility] Start: 07-14-2020 Influenza vaccination given Sequential Influenza Vaccine (#1) [facility] Start: 08-15-2019 Thyroid stimulating hormone measurement TSH Level [facility] Start: 2018 HPV Vaccine (optional start 27-45 years) HPV Vaccine (optional start 27-45 years) [facility] Start: 07-14-2013 Annual wellness visit Annual Wellness Visit (G0438) [facility] Start: 2010 Hepatitis B Vaccines (1 of 3 - 19+ 3-dose series) Hepatitis B Vaccines (1 of 3 - 19+ 3-dose series) [facility] Start: 10-28-2009 Varicella vaccination [facility] Start: 2009 Hepatitis C antibody, confirmatory test [facility]atitis [facility] Screening [facility] Start: 2009 [facility]atitis C [facility] Start: 2006 [facility] Start: 1994 History and physical examination, annual for health maintenance Wellness Visit [facility] Start: 1991 Basic metabolic 2000 panel - Serum or Plasma Basic Metabolic Panel [facility] Start: 1991 Creatinine measurement Basic Metabolic Panel [facility] Start: 1991 Hepatitis B Vaccines (1 of 3 - 3-dose series) Hepatitis B Vaccines (1 of 3 - 3-dose series) [facility] Start: 1991 HIV screening HIV Screening [facility] Start: 1991 Lipid panel Lipid Panel [facility] Start: 1991 Medicare Annual Wellness Visit Medicare Annual Wellness Visit (AWV) [facility] Start: 1991 Tetanus vaccination Tetanus: Every 10yrs [facility] Start: 1991 Thyroid stimulating hormone measurement TSH [facility] End: 09-15-2024 Basic metabolic 2000 panel - Serum or Plasma BASIC METABOLIC PANEL Lab Routine Pre-op exam 1 Occurrences starting 09/15/2023 until 09/15/2024 [facility] Work Phone: Comment on above: 1 Occurrences starting 09/15/2023 until 09/15/2024 CBC panel - Blood by Automated count COMPLETE BLOOD COUNT Lab Routine Pre-op exam Ordered: 09/15/2023 [facility] Comment on above: Ordered: 09/15/2023 DENTAL RESTORATIONS DENTAL FRANKLYN RATIONS Routine scheduled Caries [facility] Immunizations Immunization Date Immunization Notes Care Provider Tristen park 03-07-2022 diphtheria, tetanus toxoids and pertussis vaccine Viry Keeo [facility] Work Phone: [facility] 09-08-2021 influenza, injectabl e, quadrivalent, preservative free Viry Gordoncirillo [facility] Work Phone: [facility] 09-08-2021 influenza virus vaccine, unspecified formulation Carline Mcfarland DDS Work Phone: [facility] 12-15-2020 Pfizer SARS-COV-2 (COVID-19) vaccine, age 12+ yrs, mRNA, spike protein, LNP, preservative free, 30 mcg/0.3mL dose ([id number]=[id number]) Viry Gordoncirillo [facility] Work Phone: [facility] 11-24-2020 Pfizer SARS-COV-2 (COVID-19) vaccine, age 12+ yrs, mRNA, spike protein, LNP, preservative free, 30 mcg/0.3mL dose ([id number]) Viry Gordoncirillo [facility] Work Phone: [facility] 08-27-2020 influenza, injectabl e, quadrivalent, preservative free Viry Angel RDH Work Phone: [facility] 08-22-2018 influenza, injectabl e, quadrivalent, contains preservative Viry Angel RDH Work Phone: [facility] Work Phone: 09-06-2017 influenza, injectabl e, quadrivalent, contains preservative Viry Angel RDH Work Phone: [facility] 11-15-2016 tetanus toxoid, redu danika diphtheria toxoid, and acellular pertussis vaccine, adsorbed Erinalva Wall [facility] Comment on above: Series: 09-03-2015 influenza, injectabl e, quadrivalent, preservative free Viry Angel RDH Work Phone: [facility] 09-30-2009 novel [id number], preservative-free, injectable Viry Angel RDH Work Phone: [facility] 09-04-2008 influenza virus vaccine, whole virus Viry Angel RD Work Phone: [facility] 08-29-2007 influenza, seasonal, injectable Viry Angel RDH Work Phone: [facility] 03-29-2007 meningococcal polysaccharide (groups A, C, Y and W-135) diphtheria toxoid conjugate vaccine (MCV4P) Viry Angel RD Work Phone: [facility] 09-29-2006 tetanus toxoid, redu danika diphtheria toxoid, and acellular pertussis vaccine, adsorbed Viry Angel RD Work Phone: [facility] 09-12-2006 influenza, seasonal, injectable Viry Angel RDH Work Phone: [facility] 06-25-2003 measles, mumps and rubella virus vaccine Viry Angel RD Work Phone: [facility] 09-25-1996 diphtheria, tetanus toxoids and pertussis vaccine Viry Angel RD Work Phone: [facility] 09-25-1996 poliovirus vaccine, inactivated Viry Angel RD Work Phone: [facility] 02-05-1993 diphtheria, tetanus toxoids and pertussis vaccine Viry Angel RD Work Phone: [facility] 11-23-1992 haemophilus influenz ae type b vaccine, conjugate unspecified formulation Viry Angel [facility] Work Phone: [facility] 11-23-1992 measles, mumps and rubella virus vaccine Viry Angel [facility] Work Phone: [facility] 10-02-1992 poliovirus vaccine, inactivated Viry Angel [facility] Work Phone: [facility] 02-03-1992 diphtheria, tetanus toxoids and pertussis vaccine Viry Angel [facility] Work Phone: [facility] 02-03-1992 haemophilus influenz ae type b vaccine, conjugate unspecified formulation Viry Angel [facility] Work Phone: [facility] 1991 diphtheria, tetanus toxoids and pertussis vaccine Viry Angel [facility] Work Phone: [facility] 1991 haemophilus influenz ae type b vaccine, conjugate unspecified formulation Viry Angel [facility] Work Phone: [facility] 1991 trivalent poliovirus vaccine, live, oral Viry Angel [facility] Work Phone: [facility] 1991 diphtheria, tetanus toxoids and pertussis vaccine Viry Angel RD Work Phone: [facility] 1991 haemophilus influenz ae type b vaccine, conjugate unspecified formulation Viry Angel [facility] Work Phone: [facility] 1991 trivalent poliovirus vaccine, live, oral Viry Dykesllo [facility] Work Phone: [facility] Payers Date Payer Category Payer Unknown 2020 Medicaid MEDICAID [facility] [id number] 2020-Present [id number] 2016 Medicare [id number] 2012 Medicare [id number] 2010 Medicaid [id number] [id number] [id number] 1991 Unknown [id number] 2.16.840.1.886311.3.579.2.176 1991 Unknown [id number] 2.16.840.1.639768.3.579.2.176 1991 Unknown [id number] 2.16.840.1.681034.3.579.2.903 1991 Unknown [id number] 2.16.840.1.714838.3.579.2.593 1991 Unknown [id number] 2.16.840.1.408686.3.579.2.593 1991 Unknown [id number] 2.16.840.1.038768.3.579.2.593 1991 Unknown [id number] 2.16.840.1.763554.3.579.2.593 1991 Unknown [id number] 2.16.840.1.186849.3.579.2.593 1991 Unknown [id number] 2.16.840.1.197017.3.579.2.593 1991 Unknown [id number] 2.16.840.1.950792.3.579.2.593 1991 Unknown [id number] 2.16.840.1.595733.3.579.2.356 1991 Unknown [id number] 2.16.840.1.845492.3.579.2.356 1991 Unknown [id number] 2.16.840.1.126537.3.579.2.356 1991 Unknown [id number] 2.16.840.1.679533.3.579.2.732 1991 Unknown [id number] 2.16.840.1.686697.3.579.2.732 1991 Unknown [id number] 2.16.840.1.744902.3.579.2.732 1991 Unknown [id number] 2.16.840.1.828090.3.579.2.732 1991 Unknown [id number] 2.16.840.1.520613.3.579.2.727 1991 Unknown [id number] 2.16.840.1.375326.3.579.2.1244 1991 Unknown [id number]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
== END 2024-12-17 14:33 | disposition home or self-care (01) ==
LOC: LAB 14:32
PROVIDERS: PCP Family Medicine; Visit Provider Family Medicine
DX: T14.8XXA Other injury of unspecified body region, initial encounter (principal)
CPT/HCPCS: 87070; 87075

== ENCOUNTER 2025-01-21 06:50 | Outpatient (OUT) | payer MEDICARE, MEDICAID, SELFPAY ==
--- OUTSIDE RECORDS SUMMARY | 2025-01-21 06:55 | XMS_ITS | CCD ---
Author Organization [facility] Care Team Providers Care Comb Winder Name Role Phone DABOUL, ISAM Admitting Unavailable [...] RALEIGH Cruz Primary Care Unavailable MISC, DR YANZE Consulting Unavailable MISC, DR YANEZ Admitting Unavailable EPPS, DR RALEIGH Cruz Consulting Unavailable EPPS, DR RALEIGH Cruz Primary Care Unavailable EPPS, DR RALEIGH Cruz Admitting Unavailable PEPS, DR RALEIGH Cruz Attending Unavailable EPPS, DR [...] Erin Referring Unavai lable Medardo, Dr. Sai Mcgarth Primary Care Unavailab le [facility] Nematollahi, Erin [...] Unavailable Sai Batres MD Primary Care Provider [phone] RALEIGH EPPS Referring Unavailable EPPSRALEIGH MCCAIN Attending Unavailable EPPSRALEIGH MCCAIN Admitting Unavailable BREE WHITING Attending Unavailable SAI BATRES Primary Care Unavailable BREE WHITING Attending Unavailable SAI BATRES Primary Care Unavailable Allergies Allergy Classification Reported Allergen(s) Allergy Type Date of Onset Reaction(s) Facility (3 sources) fluvoxaMINE; Translations: [Luvox] Drug Allergy [facility] Repository (16 sources) QUEtiapine; Translations: [SEROquel TABS] Drug Allergy 02-03-2017 Unknown [facility] Seth [address] Work Phone: (5 sources) risperiDONE; Translations: [risperiDONE TABS] Drug Allergy 02-06-2017 Unknown [facility] -[facility] [employer] [address] Work Phone: (2 sources) Valproate; Translations: [Depakote] Drug Allergy [facility] [employer] [address] Work Phone: (16 sources) fluvoxaMINE; Translations: [FLUVOXAMINE] Drug Allergy 02-06-2017 Unknown [facility] (13 sources) Valproate; Translations: [VALPROIC ACID] Drug Allergy 02-03-2017 [facility] (13 sources) risperiDONE; Translations: [RISPERIDONE] Drug Allergy 02-06-2017 [facility] (2 sources) QUEtiapine; Translations: [QUETIAPINE] Drug Allergy 02-03-2017 [facility] Repository (3 sources) Valproate; Translations: [DIVALPROEX] Drug Allergy 11-15-2023 Unknown [facility] (1 source) QUEtiapine; Translations: [SEROquel] Drug Allergy [facility] Repository Medications Current Medications Medication Drug [...] a day. Active take 2 capsules by [facility] three times daily Docusate Sodium 100 MG [...] Active Start: 03-25-2022 take 1 tablet by [facility] at bedtime guanFACINE HCl - 1 MG Oral Tablet TAKE 1 TABLET AT BEDTIME. Quantity: 0 Refills: 0 Ordered: 25-Mar-2022 DO Start : 25-Mar-2022 Active take 1 tablet by [facility] twice daily guanFACINE (Tenex) 2 mg tablet Take 1 tablet (2 mg) by mouth twice a day. Active take 4 tablets by [facility] in the morning, then take [...] daily Refills: 0 Active polyethylene glycol 3350 54179 mg powder for oral solution (2 sources) [...] chemistry] Episodic Other aftercare (1 source) Other correction (current) drug therapy; Translations: [OTH INTERMEDIATE CURRENT DRUG THERAPY] Onset: 3 Episodic Other [...] Facility Consent for Treatmenton Consent for Treatment [id number] .[id number] Normal [facility] XR Adult Swallowing Function w/ Videoon [...] mGy = 17.10 DAP = 395.03 Normal [facility] Physician Orderon 12-11-2023 Physician Order [id number]. 00TIFF Normal [facility] Anesthesia Postprocedure Clara luationon 10-03-2023 Cokeman Authentication Interface Message Text Anesthesia Postoperative Assessment: [...] EVENTS: No notable events documented. Normal [facility] Anesthesia Preprocedure Eval uationon 10-02-2023 Cokeman Authentication Interface Message Text ASA: 3 No [...] were discussed with the patient and/or legal appeals representative. The risks, benefits and alternatives were reviewed. Questions regarding anesthesia were answered. Patient and/or legal appeals representative knows such anesthetics and procedures may be performed by Resident physicians, Certified Anesthesiologist Assistants, or Certified Nurse Anesthetists under the supervision of a physician. The patient /or the patient's legal appeals representative agree with the plan for anesthesia. [...] DENTAL RESTORATIONS; Surgeon: Grabiel Cummings DDS; Location: [facility] [place]; Service: Dental * EXTRACTION, TOOTH 02/06/2017 Procedure: EXTRACTION, TOOTH; Surgeon: Noé Drew DDS; Location: [facility]IVE SERVICES; Service: Dental * UNLISTED PROCEDURE, DENTOALVEOLAR STRUCTURES 04/29/10 * X-RAY EXAM OF TEETH. [id number] 04/29/10 Social History Socioeconomic History * Marital status: Single Tobacco Use * Smoking status: Never * Smokeless tobacco: Never Social History Narrative [facility]. Brother is guardian. Current Outpatient Medications on [...] carbamazepine (more content not included)... Normal [facility] Anesthesia Transfer Of Careo n 10-02-2023 Cokeman Authentication Interface Message Text Patient taken to [...] surgical history indicates: X-RAY EXAM OF TEETH. [id number] (04/29/10) UNLISTED PROCEDURE, DENTOALVEOLAR STRUCTURES (04/29/10) DENTAL RESTORATIONS (02/06/2017) Procedure: DENTAL RESTORATIONS; Surgeon: Noé Drew DDS; Location: [facility]IVE SERVICES; Service: Dental EXTRACTION, TOOTH (02/06/2017) Procedure: EXTRACTION, TOOTH; Surgeon: Noé Drew DDS; Location: [facility]; Service: Dental DENTAL RESTORATIONS (02/15/2021) Procedure: DENTAL RESTORATIONS; Surgeon: Grabiel Cummings DDS; Location: [facility]; Service: Dental Allergies: Depakote [valproic acid], Luvox [fluvoxamine], Risperidone, and Seroquel [quetiapine] Basic Operating Room Facts: Surgeon(s): Tyrese Alexander DDS Anesthesiologist: Timothy Elizalde MD LINEN KEEPER: Rainer Fatima APRN-CRNA Anesthesia Student: Joyce Rivers [...] report was received. KATIE Cunningham Normal [facility] Blood Attestationon 11-20-20 23 Cokeman Authentication Interface Message Text Blood Attestation: ATTESTATION OF INFORMED CONSENT FOR BLOOD: The transfusion of blood and/or blood components were discussed with the patient and/or legal appeals representative. The risks, benefits and alternatives were reviewed. Questions regarding blood transfusions were answered. The patient /or the patient's legal appeals representative agree with the plan for transfusion of blood and/or blood components. Normal [facility] Brief Operative Noteon 10-02 Cokeman Authentication Interface Message Text Brief Operative Note PHE OR 3 Markel Li 33 year old male Surgical Contact Serial Number: [id number] Preoperative Diagnosis: Caries [K02.9] Autism [ F 84] Postoperative Diagnosis: * Caries [K02.9] Procedures: Full mouth X ray [10499] Comprehensive exam [78224] Prophylaxis [88745] Restorations [77687] Surgeon(s): Surgeon(s): Tyrese Alexander DDS Staff: Pellet Preparation Operator Nurse: Nina Galan RN Garment Presser: Ca Raza DDS; Rosas Narayanan DDS Anesthesia: General Anesthesiologist: Timothy Elizalde MD LINEN KEEPER: Rainer Fatima APRN-CRNA Anesthesia Student: Joyce Rivers [...] Martini DDS 10/02/2023 2:29 PM Normal [facility] OP Noteon 10-02-2023 Cokeman Authentication Interface Message Text Surgical Case Number Data Unavailable Operating Room Data Unavailable Preoperative Diagnosis: Caries [K02.9] Autism [ F 84] Preoperative Diagnosis: Caries [K02.9] Autism [ F 84] Postoperative Diagnosis: Autism [ F 84] Procedures: Full mouth X ray [38962] Comprehensive exam [22534] Prophylaxis [94981] Restorations [55728] Postoperative Diagnosis(es): Same @ENCORD@ Surgeon: Dr Tyra DDS Infrastructure Administrator Surgeon: WILLIAMS Corcoran DDS Anesthesia: General- Nasal [...] Martini DDS 10/02/2023 2:34 PM Normal [facility] Progress Noteson 10-02-2023 Cokeman Authentication Interface Message Text ----- Monday, October 02, 2023 at 2:27:57 PM ----- ----- Provider: Alessio Mary DDS -- Clinic: [facility] ----- [place] notes[facility] pt is read for tx good [...] Note Type: OP Note Status: Cosign Needed Motion Picture Projectionist: Rosas Narayanan DDS (Resident) Cosign Required: Yes Expand All Collapse All Surgical Case Number Data Unavailable Operating Room Data Unavailable Preoperative Diagnosis: Caries [K02.9] Autism [ F 84] Preoperative Diagnosis: Caries [K02.9] Autism [ F 84] Postoperative Diagnosis: Autism [ F 84] Procedures: Full mouth X ray [77063] Comprehensive exam [73639] Prophylaxis [62395] Restorations [10249] Postoperative Diagnosis(es): Same @ENCORD@ Surgeon: Dr Tyra DDS Infrastructure Administrator Surgeon: WILLIAMS Corcoran DDS Anesthesia: General- Nasal [...] Martini DDS 10/02/2023 2:34 PM Normal [facility] Telephone Encounteron 2022 Cokeman Authentication Interface Message Text DD adult dental restorations on 10/02 under [place] [facility] [place]. PSE completed - consents obtained. PSE RN spoke to Miriam from [facility], confirmed O, [place] address, and 1100 arrival time Normal [facility] Telephone Encounteron 2022 Cokeman Authentication Interface Message Text Informed Consent for dental surgery AND Anesthesia consent obtained and scanned into [facility]. Scheduled for surgery 10/02/2023. Normal [facility] BASIC METABOLIC PANELon 11-0 Anion gap [Moles/Vol] 13 mmol/L Normal - The [facility] Comment on above: Performed By: #### C H8 ####S PATHOLOGY [id number] [place], [place], Calcium [Mass/Vol] 9.6 mg/dL Normal 8.4-10.[address] [facility] Comment on above: Performed By: #### C H8 ####S PATHOLOGY [id number] [place], [place], Chloride [Moles/Vol] 105 mmol/L Normal 97-111 [facility] Comment on above: Performed By: #### C H8 ####[facility] PATHOLOGY [id number] [place], [place], CO2 [Moles/Vol] 26 mmol/L Normal 21-30 The [facility] Comment on above: Performed By: #### C H8 ####[facility] PATHOLOGY [id number] [place], [place], Creatinine [Mass/Vol] 1.58 mg/dL High 0.80-1.30 [facility] Comment on above: Performed By: #### C H8 ####[facility] PATHOLOGY [id number] [place], [place], ESTIMATED GFR (CKD-EPI) 59 mL/min/1.73sqm Low >=60 The [facility] Comment on above: Result Comment: [...] Inclusion of Race in Diagnosing Kidney Disease. [place] Journal of Kidney Diseases 2021;79(2):268-88.e1. 2. N Engl J Med 1 Vol. 385 Issue 19 Pages 6671-3383 Performed By: #### C H8 ####[facility] PATHOLOGY [id number] [place], [place], Glucose [Mass/Vol] 69 mg/dL Normal 68-110 The [facility] Comment on above: Performed By: #### C H8 ####S PATHOLOGY [id number] [place], [place], Potassium [Moles/Vol] 4.1 mmol/L Normal 3.3-5.3 [facility] Comment on above: Performed By: #### C H8 ####S PATHOLOGY [id number] [place], Sodium [Moles/Vol] 140 mmol/L Normal 135-148 The [facility] Comment on above: Performed By: #### C H8 ####[facility] PATHOLOGY [id number] [place], Urea nitrogen [Mass/Vol] 18 mg/dL Normal 8-22 The [facility] Comment on above: Performed By: #### C H8 ####S PATHOLOGY [id number] [place], [place], Basic metabolic 2000 panelon 09-15-2023 Anion [...] Inclusion of Race in Diagnosing Kidney Disease. [place] Journal of Kidney Diseases 202;79(2):268-88.e1. 2. N Engl J Med 1 Vol. 385 Issue 19 Pages 6025-4810 Glucose [Mass/Vol] 69 mg/dL 68 - 110 mg/dL [facility] Interpretation and review of laboratory results Abnormal [facility] Potassium [Moles/Vol] 4.1 mmol/L 3.3 - 5.3 mmol/L [facility] Sodium [Moles/Vol] 140 mmol/L 135 - 148 mmol/L [facility] Urea nitrogen [Mass/Vol] 18 mg/dL 8 - 22 mg/dL [facility] CBC panel Auto (Bld)on 09-15 Erythrocyte distribution width (RBC) [Ratio] 13.3 % 11.5 - 14.5 % [facility] Hematocrit (Bld) [Volume fraction] 41.8 % 41.0 - 53.0 % [facility] Hemoglobin (Bld) [Mass/Vol] 13.8 g/dL Low 13.9 - 16.3 g/dL [facility] Interpretation and review of laboratory results Abnormal [facility] MCH (RBC) [Entitic mass] 28.7 pg 26.0 - 34.0 pg [facility] MCHC (RBC) [Mass/Vol] 32.9 g/dL 32.0 - 35.9 g/dL [facility] MCV (RBC) [Entitic vol] 87 fL 80 - 100 fL [facility] Platelet mean volume (Bld) [Entitic vol] 8.7 fL 7.5 - 11.2 fL [facility] Platelets (Bld) [#/Vol] 213 10*3/uL 150 - 400 K/uL [facility] RBC (Bld) [#/Vol] 4.80 10*6/uL [facility] WBC (Bld) [#/Vol] 6.3 10*3/uL 4.5 - 11.5 K/uL [facility] COMPLETE BLOOD COUNTon 09-15 Erythrocyte distribution width (RBC) [Ratio] 13.3 % Normal 11.5-14.5 The [facility] Comment on above: Performed By: #### C BC ####[facility] PATHOLOGY [id number] [place], [address] Hematocrit (Bld) [Volume fraction] 41.8 % Normal 41.0-53.0 The [facility] Comment on above: Performed By: #### C BC ####[facility] PATHOLOGY [id number] [place], [place], Hemoglobin (Bld) [Mass/Vol] 13.8 g/dL Low 13.9-16.3 The [facility] Comment on above: Performed By: #### C BC ####[facility] PATHOLOGY [id number] [place], [place], MCH (RBC) [Entitic mass] 28.7 pg Normal 26.0-34.0 [facility] Comment on above: Performed By: #### C BC ####[facility] PATHOLOGY [id number] [place], [place], MCHC (RBC) [Mass/Vol] 32.9 g/dL Normal 32.0-35.9 The [facility] Comment on above: Performed By: #### C BC ####[facility] PATHOLOGY [id number] [place], MCV (RBC) [Entitic vol] 87 fL Normal 80-100 [facility] Comment on above: Performed By: #### C BC ####[facility] PATHOLOGY [id number] [place], Platelet mean volume (Bld) [Entitic vol] 8.7 fL Normal 7.5-11.2 The [facility] Comment on above: Performed By: #### C BC ####[facility] PATHOLOGY [id number] [place], Platelets (Bld) [#/Vol] 213 10*3/uL Normal 150-400 The [facility] Comment on above: Performed By: #### C BC ####S PATHOLOGY [id number] [place], [place], RBC (Bld) [#/Vol] 4.80 10*6/uL Normal 4.50-5.90 The [facility] Comment on above: Performed By: #### C BC ####[facility] PATHOLOGY [id number] [place], WBC (Bld) [#/Vol] 6.3 10*3/uL Normal 4.5-11.5 The [facility] Comment on above: Performed By: #### C ####[facility] PATHOLOGY [id number] [place], [address] PSE Chartingon 09-15-2023 Cokeman Authentication Interface Message Text Dental Consult The [...] Treatment Dental Treatment in the OR Follow-up [facility] Family Dentistry if needed Note: Legal guardian: Yogesh Li (BROTHER): [phone]. The patient lives in a Facility. A caregiver brushes his teeth twice a day. Ramu Jernigan DDS Normal [facility] Patient Instructionson 09-15 Cokeman Authentication Interface Message Text RECOMMENDATIONS: Patient was instructed on the following: Nothing by mouth after midnight before surgery except following meds with sip of water on AM of surgery: as per anesthesia Stop aspirin 7 days before surgery Stop NSAID 5 days before surgery Stop Vitamin E 10 days prior to surgery Stop alternative/herbal medication 10 days before surgery Normal [facility] Progress Noteson 09-15-2023 Cokeman Authentication Interface Message Text Blood pressure 112/72, [...] DENTAL RESTORATIONS; Surgeon: Grabiel Cummings DDS; Location: [facility] [place]; Service: Dental EXTRACTION, TOOTH 02/06/2017 Procedure: EXTRACTION, TOOTH; Surgeon: Noé Drew DDS; Location: [facility]OPERATIVE SERVICES; Service: Dental UNLISTED PROCEDURE, DENTOALVEOLAR STRUCTURES 04/29/10 X-RAY EXAM OF TEETH. [id number] 04/29/10 Pertinent Social History Reviewed Social History [...] fever, chills, night sweats, and weight loss QUALITY CONTROL: H/o seizures Respiratory: No h/o COPD, asthma dyspnea or recent URI Cardiovascular: No h/o chest pain/[place]/CHF/valvular disease/HTN GI: Constipation : H/o urinary retention [...] N (more content not included)... Normal [facility] Cokeman Authentication Interface Message Text Patient was identified by name and date of . Lashon Parsons Normal [facility] Progress Noteson 09-06-2023 Cokeman Authentication Interface Message Text Parent/guardian(Mag gaines @ [place]) was contacted for PSE AND OR scheduled -- confirmed information with mom, also informed mom importance of receiving PSE call -- if not received surgery will be canceled ----- Wednesday, September 06, 2023 at 11:27:36 AM ----- ----- Provider: Bridget Lombardi Specialist -- Clinic: [place] ----- Normal [facility] Follow Up (Endocrinology)on 03-14-2023 Follow Up [...] Services - Lab To Draw (Blood Test); Due:[id number];Ordered ; For:Hypocalcemia, Hypothyroidism, Low vitamin D level; Ordered By:Erin Ogden; Osmolality, Serum; Status:Active; Requested for:14Mar2023; Perform:Lab Services - Lab To Draw (Blood Test); Due:[id number];Ordered ; For:Hypocalcemia, Hypothyroidism, Low vitamin D level; [...] visit regarding his thyroid. History of Present Spjydru77 yo male with severe mental retardation, autism, bipolar disorder,severe psychosis,GERD, HTN , hypercalcemia [facility] with exacerbation by lithium intake (that has [...] then eats a day after. not on [place] 300 mg , did not changed since last visit as per sheet . guardian is brother Yogesh nb [phone] seeing GI , EGD was fine. no acute issues. is losing weight again , had a lip biopsy and infected ulcer is healed, weight loss has stopped, on Lt4 50 mcgq day and we need recent albs, slightly more agitated , had a fall with bruise on his face , [place] physician is following. no changes in neuro [...] were norm (more content not included)... Normal [facility] OSMOLALITYon 01-20-2023 Osmolality [Osmolality] 291 mosm/kg Normal 275-295 [facility] Comment on above: Performed By: #### C MP, T4, TSH #### [facility] [address] [place] [address] Dr. Juan Argueta CBC AUTO DIFFon 01-18-2023 BASO # 0.0 103/ul Normal 0.0-0.1 [facility] Comment on above: Performed By: #### C MP, T4, TSH #### [facility] [address] [place] [address] Dr. Juan Argueta Basophils/100 WBC (Bld) 0.6 % Normal 0.2-2.0 [facility] Comment on above: Performed By: #### C MP, T4, TSH #### [facility] [address] [place] [address] Dr. uJan Argueta EO # 0.1 103/ul Normal 0.0-0.7 [facility] Comment on above: Performed By: #### C MP, T4, TSH #### [facility] [address] [place] [address] Dr. Juan Argueta Eosinophils/100 WBC (Bld) 2.8 % Normal 0.9-7.0 [facility] Comment on above: Performed By: #### C MP, T4, TSH #### [facility] [address] [place] [address] Dr. Juan Argueta Erythrocyte distribution width (RBC) [Ratio] 12.9 % Normal 11.0-15.0 [facility] Comment on above: Performed By: #### C MP, T4, TSH #### [facility] [address] [place] [address] Dr. Juan Argueta Hematocrit (Bld) [Volume fraction] 45.4 % Normal 42.0-54.0 [facility] Comment on above: Performed By: #### C MP, T4, TSH #### [facility] [address] [place] [address] Dr. Juan Argueta Hemoglobin (Bld) [Mass/Vol] 15.4 g/dL Normal 14.0-18.0 [facility] Comment on above: Performed By: #### C MP, T4, TSH #### [facility] [address] [place] [address] Dr. Juan Argueta IG # 0.01 10e3/ul Normal 0.00-0.03 [facility] Comment on above: Performed By: #### C MP, T4, TSH #### [facility] [address] [place] [address] Dr. Juan Argueta IG % 0.2 % Normal 0.0-0.5 [facility] Comment on above: Performed By: #### C MP, T4, TSH #### [facility] [address] [place] [address] Dr. Juan Argueta LYMPH # 1.3 103/ul Normal 1.2-3.8 [facility] Comment on above: Performed By: #### C MP, T4, TSH #### [facility] [address] [place] [address] Dr. Juan Argueta Lymphocytes/100 WBC (Bld) 25.1 % Normal 20.5-60.0 [facility] Comment on above: Performed By: #### C MP, T4, TSH #### [facility] [address] [place] [address] Dr. Juan Argueta MANUAL DIFF REQ NO Normal The [facility] Comment on above: Performed By: #### C MP, T4, TSH #### [facility] [address] [place] [address] Dr. Juan Argueta MCH (RBC) [Entitic mass] 28.3 pg Normal 25.9-34.0 [facility] Comment on above: Performed By: #### C MP, T4, TSH #### [facility] [address] [place] [address] Dr. Juan Argueta MCHC (RBC) [Mass/Vol] 33.9 g/dL Normal 29.9-35.2 [facility] Comment on above: Performed By: #### C MP, T4, TSH #### [facility] [address] [place] [address] Dr. Juan Argueta MCV (RBC) [Entitic vol] 83.3 fL Normal 80.0-94.0 [facility] Comment on above: Performed By: #### C MP, T4, TSH #### [facility] [address] [place] [address] Dr. Juan Argueta MONO # 0.3 103/ul Normal 0.3-0.8 [facility] Comment on above: Performed By: #### C MP, T4, TSH #### [facility] [address] [place] [address] Dr. Juan Argueta Monocytes/100 WBC (Bld) 5.9 % Normal 1.7-12.0 [facility] Comment on above: Performed By: #### C MP, T4, TSH #### [facility] [address] [place] [address] Dr. Juan Argueta NEUT # 3.3 103/ul Normal 1.4-6.5 [facility] Comment on above: Performed By: #### C MP, T4, TSH #### [facility] [address] [place] [address] Dr. Juan Argueta Neutrophils/100 WBC (Bld) 65.4 % Normal 43.0-75.0 [facility] Comment on above: Performed By: #### C MP, T4, TSH #### [facility] [address] [place] [address] Dr. Juan Argueta Platelet mean volume (Bld) [Entitic vol] 9.5 fL Normal 9.5-13.5 [facility] Comment on above: Performed By: #### C MP, T4, TSH #### [facility] [address] [place] [address] Dr. Juan Argueta PLT 244 103/ul Normal 150-450 [facility] Comment on above: Performed By: #### C MP, T4, TSH #### [facility] [address] [address] [address] Juan Argueta RBC 5.45 106/ul Normal 4.70-6.10 [facility] Comment on above: Performed By: #### C MP, T4, TSH #### [facility] [address] [address] [address] Juan Argueta WBC 5.1 103/ul Normal 4.0-11.0 [facility] Comment on above: Performed By: #### C MP, T4, TSH #### [facility] [address] [address] [address] Juan Argueta GLYCOHEMOGLOBIN A1Con 2022 ADA RECOMMENDATION SEE BELOW Normal [facility] Comment on above: Result Comment: ADA RECOMMENDED LIMIT 4.0 - 6.0 ADA THERAPEUTIC TARGET < 7.0 ACTION SUGGESTED > 7.0 Performed By: #### C MP, T4, TSH #### [facility] [address] [address] [address] Juan Argueta Glucose [Mass/Vol] 100 mg/dL Normal [facility] Comment on above: Performed By: #### C MP, T4, TSH #### [facility] [address] [address] [address] Juan Argueta HbA1c (Bld) [Mass fraction] 5.1 % Normal 4.5-6.2 [facility] Comment on above: Performed By: #### C MP, T4, TSH #### [facility] [address] [address] [address] Juan Argueta PROF 14(COMP METB)on 023 Albumin [Mass/Vol] 4.2 g/dL Normal 3.4-5.0 [facility] Comment on above: Performed By: #### C MP, T4, TSH #### [facility] [address] [place] [address] Dr. Juan Argueta Albumin/Globulin [Mass ratio] 1.0 {ratio} Normal [facility] [facility] Comment on above: Performed By: #### C MP, T4, TSH #### [facility] [address] [address] [address] Juan Argueta ALP [Catalytic activity/Vol] 152 U/L Critically high 46-116 [facility] Comment on above: Performed By: #### C MP, T4, TSH #### [facility] [address] [address] [address] Juan Argueta ALT [Catalytic activity/Vol] 34 U/L Normal 16-63 [facility] Comment on above: Performed By: #### C MP, T4, TSH #### [facility] [address] [address] [address] Juan Argueta Anion gap [Moles/Vol] 12.0 mmol/L Normal [facility] Comment on above: Performed By: #### C MP, T4, TSH #### [facility] [address] [address] [address] Juan Argueta AST [Catalytic activity/Vol] 31 U/L Normal 15-37 [facility] Comment on above: Performed By: #### C MP, T4, TSH #### [facility] [address] [address] [address] Juan Argueta Bilirubin [Mass/Vol] 0.2 mg/dL Normal 0.2-1.0 [facility] Comment on above: Performed By: #### C MP, T4, TSH #### [facility] [address] [address] [address] Juan Argueta Calcium [Mass/Vol] 9.4 mg/dL Normal 8.5-10.1 [facility] Comment on above: Performed By: #### C MP, T4, TSH #### [facility] [address] [address] [address] Juan Argueta Chloride [Moles/Vol] 104 mmol/L Normal 98-107 [facility] Comment on above: Performed By: #### C MP, T4, TSH #### [facility] [address] [address] [address] Juan Argueta CO2 [Moles/Vol] 26.5 mmol/L Normal 21.0-32.0 [facility] Comment on above: Performed By: #### C MP, T4, TSH #### [facility] [address] [address] [address] Juan Argueta Creatinine [Mass/Vol] 1.60 mg/dL Critically high 0.70-1.30 [facility] Comment on above: Performed By: #### C MP, T4, TSH #### [facility] [address] [address] [address] Juan Argueta EGFR-AF SAMOAN >60 Normal >=60 [facility] Comment on above: Performed By: #### C MP, T4, TSH #### [facility] [address] [address] [address] Juan Argueta EGFR-NON AF SAMOAN 51 mL/min/1.73m2 Critically low >=60 [facility] Comment on above: Performed By: #### C MP, T4, TSH #### [facility] [address] [address] [address] Juan Argueta Globulin (S) [Mass/Vol] 4.1 g/dL Normal [facility] Comment on above: Performed By: #### C MP, T4, TSH #### [facility] [address] [address] [address] Juan Argueta Glucose [Mass/Vol] 95 mg/dL Normal 74-106 [facility] Comment on above: Performed By: #### C MP, T4, TSH #### [facility] [address] [address] [address] Juan Argueta Potassium [Moles/Vol] 4.5 mmol/L Normal 3.5-5.1 [facility] Comment on above: Performed By: #### C MP, T4, TSH #### [facility] [address] [address] [address] Juan Argueta Protein [Mass/Vol] 8.3 g/dL Critically high 6.4-8.2 [facility] Comment on above: Performed By: #### C MP, T4, TSH #### [facility] [address] [address] [address] Juan Argueta Sodium [Moles/Vol] 138 mmol/L Normal 136-145 [facility] Comment on above: Performed By: #### C MP, T4, TSH #### [facility] [address] [address] [address] Juan Argueta Urea nitrogen [Mass/Vol] 22.0 mg/dL Critically high 7.0-18.0 [facility] Comment on above: Performed By: #### C MP, T4, TSH #### [facility] [address] [address] [address] Juan Argueta Urea nitrogen/Creatinine [Mass ratio] 13.8 mg/mg Normal [facility] Comment on above: Performed By: #### C MP, T4, TSH #### [facility] [address] [place] [address] Dr. Juan Argueta T4on 01-18-2023 T4 [Mass/Vol] 3.20 ug/dL Critically low 4.50-12.10 [facility] Comment on above: Performed By: #### C MP, T4, TSH #### [facility] [address] [place] [address] Dr. Juan Argueta TSHon 01-18-2023 TSH 2.037 uIU/mL Normal 0.358-3.740 [facility] Comment on above: Performed By: #### C MP, T4, TSH #### [facility] [address] [place] [address] Dr. Juan Argueta US THYROIDon 01-04-2023 US [...] by: LUIS FERMIN Date: 2023-01-04 15:52 Normal [facility] OSMOLALITYon 10-06-2022 Osmolality [Osmolality] 307 mosm/kg Critically high 275-295 [facility] Comment on above: Performed By: #### C MP, T4, TSH #### [facility] [address] [address] [address] Juan Argueta T3, TOTAL (TRIIODOTHYRONINE) on 10-05-2022 T3, TOTAL 52 ng/dL Critically low 71-180 [facility] Comment on above: Performed By: #### C MP, T4, TSH #### [facility] [address] [address] [address] Juan Argueta GLYCOHEMOGLOBIN A1Con 2021 ADA RECOMMENDATION SEE BELOW Normal [facility] Comment on above: Result Comment: ADA RECOMMENDED LIMIT 4.0 - 6.0 ADA THERAPEUTIC TARGET < 7.0 ACTION SUGGESTED > 7.0 Performed By: #### C MP, T4, TSH #### [facility] [address] [place] [address] Dr. Juan Argueta Glucose [Mass/Vol] 105 mg/dL Normal [facility] Comment on above: Performed By: #### C MP, T4, TSH #### [facility] [address] [place] [address] Dr. Juan Argueta HbA1c (Bld) [Mass fraction] 5.3 % Normal 4.5-6.2 [facility] Comment on above: Performed By: #### C MP, T4, TSH #### [facility] [address] [place] [address] Dr. Juan Argueta PROF 14(COMP METB)on 022 Albumin [Mass/Vol] 4.2 g/dL Normal 3.4-5.0 [facility] Comment on above: Performed By: #### T SH, CMP #### [facility] [address] [place] [address] Dr. Juan Argueta Albumin/Globulin [Mass ratio] 1.1 {ratio} Normal [facility] Comment on above: Performed By: #### T SH, CMP #### [facility] [address] [place] [address] Dr. Juan Argueta ALP [Catalytic activity/Vol] 122 U/L Critically high 46-116 [facility] Comment on above: Performed By: #### T SH, CMP #### [facility] [address] [address] [address] Juan Argueta ALT [Catalytic activity/Vol] 53 U/L Normal 16-63 [facility] Comment on above: Performed By: #### T SH, CMP #### [facility] [address] [address] [address] Juan Argueta Anion gap [Moles/Vol] 12.4 mmol/L Normal [facility] Comment on above: Performed By: #### T SH, CMP #### [facility] [address] [address] [address] Juan Argueta AST [Catalytic activity/Vol] 22 U/L Normal 15-37 [facility] Comment on above: Performed By: #### T SH, CMP #### [facility] [address] [place] [address] Dr. Juan Argueta Bilirubin [Mass/Vol] 0.2 mg/dL Normal 0.2-1.0 [facility] Comment on above: Performed By: #### T SH, CMP #### [facility] [address] [address] [address] Juan Argueta Calcium [Mass/Vol] 9.6 mg/dL Normal 8.5-10.1 [facility] Comment on above: Performed By: #### T SH, CMP #### [facility] [address] [place] [address] Dr. Juan Argueta Chloride [Moles/Vol] 108 mmol/L Critically high 98-107 [facility] Comment on above: Performed By: #### T SH, CMP #### [facility] [address] [address] [address] Juan Argueta CO2 [Moles/Vol] 28.8 mmol/L Normal 21.0-32.0 [facility] Comment on above: Performed By: #### T SH, CMP #### [facility] [address] [address] [address] Juan Argueta Creatinine [Mass/Vol] 1.77 mg/dL Critically high 0.70-1.30 [facility] Comment on above: Performed By: #### T SH, CMP #### [facility] [address] [address] [address] Juan Argueta EGFR-AF SAMOAN 55 mL/min/1.73m2 Critically low >=60 [facility] Comment on above: Performed By: #### T SH, CMP #### [facility] [address] [address] [address] Juan Argueta EGFR-NON AF SAMOAN 45 mL/min/1.73m2 Critically low >=60 [facility] Comment on above: Performed By: #### T SH, CMP #### [facility] [address] [address] [address] Juan Argueta Globulin (S) [Mass/Vol] 3.7 g/dL Normal [facility] Comment on above: Performed By: #### T SH, CMP #### [facility] [address] [address] [address] Juan Argueta Glucose [Mass/Vol] 94 mg/dL Normal 74-106 [facility] Comment on above: Performed By: #### T SH, CMP #### [facility] [address] [address] [address] Juan Argueta Potassium [Moles/Vol] 4.2 mmol/L Normal 3.5-5.1 [facility] Comment on above: Performed By: #### T SH, CMP #### [facility] [address] [address] [address] Juan Argueta Protein [Mass/Vol] 7.9 g/dL Normal 6.4-8.2 [facility] Comment on above: Performed By: #### T SH, CMP #### [facility] [address] [address] [address] Juan Argueta Sodium [Moles/Vol] 145 mmol/L Normal 136-145 [facility] Comment on above: Performed By: #### T SH, CMP #### [facility] [address] [address] [address] Juan Argueta Urea nitrogen [Mass/Vol] 28.0 mg/dL Critically high 7.0-18.0 [facility] Comment on above: Performed By: #### T SH, CMP #### [facility] [address] [place] [address] Dr. Juan Argueta Urea nitrogen/Creatinine [Mass ratio] 15.8 mg/mg Normal [facility] Comment on above: Performed By: #### T SH, CMP #### [facility] [address] [place] [address] Dr. Juan Argueta TSHon 10-04-2022 TSH 1.456 uIU/mL Normal 0.358-3.740 [facility] Comment on above: Performed By: #### T SH, CMP #### [facility] [address] [place] [address] Dr. Juan Argueta VITAMIN D 25 OHon 10-04-2022 VIT D 25-OH 51.1 ng/mL Normal [facility] Comment on above: Performed By: #### C MP, T4, TSH #### [facility] [address] [place] [address] Dr. Juan Argueta VIT D RANGES SEE BELOW Normal [facility] Comment on above: Result Comment: <20 ng/mL Vit D deficient 20 - <30 ng/mL Vit D insufficient 30 - 100 ng/mL Vit D sufficient >100 ng/mL Potential Toxicity Performed By: #### C MP, T4, TSH #### [facility] [address] [place] [address] Dr. Juan Argueta Follow Up (Endocrinology)on 09-30-2022 [...] Services - Lab To Draw (Blood Test); Due:[id number];Ordered ; For:Hypocalcemia, Hypothyroidism, Low vitamin D level, Multinodular goiter; Ordered By:Erin Ogden; Osmolality, Serum; Status:Active; Requested for:30Sep2022; Perform:Lab Services - Lab To Draw (Blood Test); Due:[id number];Ordered ; For:Hypocalcemia, Hypothyroidism, Low vitamin D level, Multinodular goiter; Ordered By:Erin Ogden; Osmolality, Urine Spot; Status:Active; Requested for:30Sep2022; Perform:Lab Services - Lab To Draw (Non-Blood Test); Due:[id number];Ordered ; For:Hypocalcemia, Hypothyroidism, Low vitamin D level, Multinodular goiter; Ordered By:Erin Ogden; TSH WITH REFLEX TO FREE T4 IF ABNORMAL; Status:Active; Requested for:30Sep2022; Perform:Lab Services - Lab To Draw (Blood Test); Due:[id number];Ordered ; For:Hypocalcemia, Hypothyroidism, Low vitamin D level, Multinodular goiter; Ordered By:Erin Ogden; Ultrasound Thyroid; Status:Hold For - Scheduling; Requested for:30Sep2022; Perform: Radiology Services Imaging; Due:[id number];Ordered ; For:Hypocalcemia, Hypothyroidism, Low vitamin D level, Multinodular goiter; Ordered By:Erin Ogden; Radiologist to Determine Optimal Study : Y What are the patient's signs and symptoms? : f/u Vitamin D 25-Hydroxy; Status:Active; Requested for:30Sep2022; Perform:Lab Services - Lab To Draw (Blood Test); Due:[id number];Ordered ; For:Hypocalcemia, Hypothyroidism, Low vitamin D level, Multinodular goiter; Ordered By:Erin Ogedn; Patient Discussion/Summary we will call you with [...] low vitamin d levels. History of Present Civxjbt47 yo male with severe mental retardation, autism, bipolar disorder,severe psychosis,GERD, HTN , hypercalcemia [facility] 12/15 [facility] with exacerbation by lithium intake (that has [...] then eats a day after. not on [place] 300 mg , did not changed since last visit as per sheet . guardian is brother Yogesh nb [phone] seeing GI , EGD was fine. no acute issues. is losing weight again , had a lip biopsy and infected ulcer is healed, weight loss has stopped, on Lt4 50 mcgq day and we need recent albs, slightly more agitated , had a fall with bruise on his face , [place] physician is following. no changes in neuro [...] 09-20-2022 BASO # 0.1 103/ul Normal 0.0-0.1 [facility] Comment on above: Performed By: #### C MP, T4, TSH #### [facility] [address] [place] [address] Dr. Juan Argueta Basophils/100 WBC (Bld) 1.2 % Normal 0.2-2.0 [facility] Comment on above: Performed By: #### C MP, T4, TSH #### [facility] [address] [place] [address] Dr. Juan Argueta EO # 0.2 103/ul Normal 0.0-0.7 [facility] Comment on above: Performed By: #### C MP, T4, TSH #### [facility] [address] [place] [address] Dr. Juan Argueta Eosinophils/100 WBC (Bld) 5.0 % Normal 0.9-7.0 [facility] Comment on above: Performed By: #### C MP, T4, TSH #### [facility] [address] [place] [address] Dr. Juan Argueta Erythrocyte distribution width (RBC) [Ratio] 12.8 % Normal 11.0-15.0 [facility] Comment on above: Performed By: #### C MP, T4, TSH #### [facility] [address] [place] [address] Dr. Juan Argueta Hematocrit (Bld) [Volume fraction] 42.0 % Normal 42.0-54.0 [facility] Comment on above: Performed By: #### C MP, T4, TSH #### [facility] [address] [place] [address] Dr. Juan Argueta Hemoglobin (Bld) [Mass/Vol] 14.0 g/dL Normal 14.0-18.0 [facility] Comment on above: Performed By: #### C MP, T4, TSH #### [facility] [address] [place] [address] Dr. Juan Argueta IG # 0.01 10e3/ul Normal 0.00-0.03 [facility] Comment on above: Performed By: #### C MP, T4, TSH #### [facility] [address] [address] [address] Juan Argueta IG % 0.2 % Normal 0.0-0.5 [facility] Comment on above: Performed By: #### C MP, T4, TSH #### [facility] [address] [place] [address] Dr. Juan Argueta LYMPH # 1.5 103/ul Normal 1.2-3.8 [facility] Comment on above: Performed By: #### C MP, T4, TSH #### [facility] [address] [place] [address] Dr. Juan Argueta Lymphocytes/100 WBC (Bld) 34.9 % Normal 20.5-60.0 [facility] Comment on above: Performed By: #### C MP, T4, TSH #### [facility] [address] [place] [address] Dr. Juan Argueta MANUAL DIFF REQ NO Normal [facility] Comment on above: Performed By: #### C MP, T4, TSH #### [facility] [address] [place] [address] Dr. Juan Argueta MCH (RBC) [Entitic mass] 29.0 pg Normal 25.9-34.0 [facility] Comment on above: Performed By: #### C MP, T4, TSH #### [facility] [address] [place] [address] Dr. Juan Argueta MCHC (RBC) [Mass/Vol] 33.3 g/dL Normal 29.9-35.2 [facility] Comment on above: Performed By: #### C MP, T4, TSH #### [facility] [address] [place] [address] Dr. Juan Argueta MCV (RBC) [Entitic vol] 87.0 fL Normal 80.0-94.0 [facility] Comment on above: Performed By: #### C MP, T4, TSH #### [facility] [address] [place] [address] Dr. Juan Argueta MONO # 0.3 103/ul Normal 0.3-0.8 [facility] Comment on above: Performed By: #### C MP, T4, TSH #### [facility] [address] [place] [address] Dr. Juan Argueta Monocytes/100 WBC (Bld) 6.8 % Normal 1.7-12.0 [facility] Comment on above: Performed By: #### C MP, T4, TSH #### [facility] [address] [place] [address] Dr. Juan Argueta NEUT # 2.2 103/ul Normal 1.4-6.5 [facility] Comment on above: Performed By: #### C MP, T4, TSH #### [facility] [address] [place] [address] Dr. Juan Argueta Neutrophils/100 WBC (Bld) 51.9 % Normal 43.0-75.0 [facility] Comment on above: Performed By: #### C MP, T4, TSH #### [facility] [address] [place] [address] Dr. Juan Argueta Platelet mean volume (Bld) [Entitic vol] 10.1 fL Normal 9.5-13.5 [facility] Comment on above: Performed By: #### C MP, T4, TSH #### [facility] [address] [place] [address] Dr. Juan Argueta PLT 252 103/ul Normal 150-450 [facility] Comment on above: Performed By: #### C MP, T4, TSH #### [facility] [address] [place] [address] Dr. Juan Argueta RBC 4.83 106/ul Normal 4.70-6.10 [facility] Comment on above: Performed By: #### C MP, T4, TSH #### [facility] [address] [place] [address] Dr. Juan Argueta WBC 4.2 103/ul Normal 4.0-11.0 [facility] Comment on above: Performed By: #### C MP, T4, TSH #### [facility] [address] [place] [address] Dr. Juan Argueta FREE T4on 09-20-2022 Free T4 [Mass/Vol] 0.50 ng/dL Critically low 0.76-1.46 [facility] Comment on above: Performed By: #### B 12FOL, FT4 #### [facility] [address] [place] [address] Dr. Juan Argueta PROF 14(COMP METB)on 022 Albumin [Mass/Vol] 4.1 g/dL Normal 3.4-5.0 [facility] Comment on above: Performed By: #### C MP, T4, TSH #### [facility] [address] [place] [address] Dr. Juan Argueta Albumin/Globulin [Mass ratio] 1.1 {ratio} Normal [facility] Comment on above: Performed By: #### C MP, T4, TSH #### [facility] [address] [place] [address] Dr. Juan Argueta ALP [Catalytic activity/Vol] 107 U/L Normal 46-116 [facility] Comment on above: Performed By: #### C MP, T4, TSH #### [facility] [address] [place] [address] Dr. Juan Argueta ALT [Catalytic activity/Vol] 79 U/L Critically high 16-63 [facility] Comment on above: Performed By: #### C MP, T4, TSH #### [facility] [address] [place] [address] Dr. Juan Argueta Anion gap [Moles/Vol] 8.4 mmol/L Normal [facility] Comment on above: Performed By: #### C MP, T4, TSH #### [facility] [address] [place] [address] Dr. Juan Argueta AST [Catalytic activity/Vol] 32 U/L Normal 15-37 [facility] Comment on above: Performed By: #### C MP, T4, TSH #### [facility] [address] [address] [address] Juan Argueta Bilirubin [Mass/Vol] 0.2 mg/dL Normal 0.2-1.0 [facility] Comment on above: Performed By: #### C MP, T4, TSH #### [facility] [address] [place] [address] Dr. Juan Argueta Calcium [Mass/Vol] 9.2 mg/dL Normal 8.5-10.1 [facility] Comment on above: Performed By: #### C MP, T4, TSH #### [facility] [address] [place] [address] Dr. Juan Argueta Chloride [Moles/Vol] 104 mmol/L Normal 98-107 [facility] Comment on above: Performed By: #### C MP, T4, TSH #### [facility] [address] [place] [address] Dr. Juan Argueta CO2 [Moles/Vol] 30.2 mmol/L Normal 21.0-32.0 [facility] Comment on above: Performed By: #### C MP, T4, TSH #### [facility] [address] [place] [address] Dr. Juan Argueta Creatinine [Mass/Vol] 1.67 mg/dL Critically high 0.70-1.30 [facility] Comment on above: Performed By: #### C MP, T4, TSH #### [facility] [address] [place] [address] Dr. Juan Argueta EGFR-AF SAMOAN 58 mL/min/1.73m2 Critically low >=60 [facility] Comment on above: Performed By: #### C MP, T4, TSH #### [facility] [address] [place] [address] Dr. Juan Argueta EGFR-NON AF SAMOAN 48 mL/min/1.73m2 Critically low >=60 [facility] Comment on above: Performed By: #### C MP, T4, TSH #### [facility] [address] [address] [address] Juan Argueta Globulin (S) [Mass/Vol] 3.6 g/dL Normal [facility] Comment on above: Performed By: #### C MP, T4, TSH #### [facility] [address] [address] [address] Juan Argueta Glucose [Mass/Vol] 94 mg/dL Normal 74-106 [facility] Comment on above: Performed By: #### C MP, T4, TSH #### [facility] [address] [place] [address] Dr. Juan Argueta Potassium [Moles/Vol] 4.6 mmol/L Normal 3.5-5.1 [facility] Comment on above: Performed By: #### C MP, T4, TSH #### [facility] [address] [place] [address] Dr. Juan Argueta Protein [Mass/Vol] 7.7 g/dL Normal 6.4-8.2 [facility] Comment on above: Performed By: #### C MP, T4, TSH #### [facility] [address] [place] [address] Dr. Juan Argueta Sodium [Moles/Vol] 138 mmol/L Normal 136-145 [facility] Comment on above: Performed By: #### C MP, T4, TSH #### [facility] [address] [place] [address] Dr. Juan Argueta Urea nitrogen [Mass/Vol] 28.0 mg/dL Critically high 7.0-18.0 [facility] Comment on above: Performed By: #### C MP, T4, TSH #### [facility] [address] [place] [address] Dr. Juan Argueta Urea nitrogen/Creatinine [Mass ratio] 16.8 mg/mg Normal [facility] Comment on above: Performed By: #### C MP, T4, TSH #### [facility] [address] [place] [address] Dr. Juan Argueta TSHon 09-20-2022 TSH 1.895 uIU/mL Normal 0.358-3.740 [facility] Comment on above: Performed By: #### C MP, T4, TSH #### [facility] [address] [place] [address] Dr. Juan Argueta VIT B12 AND FOLATEon 022 Cobalamin (Vitamin B12) [Mass/Vol] 350.0 pg/mL Normal 193.0-986.0 [facility] Comment on above: Performed By: #### B 12FOL, FT4 #### [facility] [address] [place] [address] Dr. Juan Argueta FOLATE 16.40 ng/mL Normal 8.60-58.90 [facility] Comment on above: Performed By: #### B 12FOL, FT4 #### [facility] [address] [place] [address] Dr. Juan Argueta VITAMIN D 25 OHon 09-20-2022 VIT D 25-OH 49.9 ng/mL Normal [facility] Comment on above: Performed By: #### V ITAD #### [facility] [address] [place] [address] Dr. Juan Argueta VIT D RANGES SEE BELOW Normal [facility] Comment on above: Result Comment: <20 ng/mL Vit D deficient 20 - <30 ng/mL Vit D insufficient 30 - 100 ng/mL Vit D sufficient >100 ng/mL Potential Toxicity Performed By: #### V ITAD #### [facility] [address] [place] [address] Dr. Juan Argueta CBC AUTO DIFFon 09-10-2022 BASO # 0.0 103/ul Normal 0.0-0.1 [facility] Comment on above: Performed By: #### C BC #### [facility] [address] [place] [address] Dr. Juan Argueta Basophils/100 WBC (Bld) 0.3 % Normal 0.2-2.0 [facility] Comment on above: Performed By: #### C BC #### [facility] [address] [place] [address] Dr. Juan Argueta EO # 0.1 103/ul Normal 0.0-0.7 [facility] Comment on above: Performed By: #### C BC #### [facility] [address] [place] [address] Dr. Juan Argueta Eosinophils/100 WBC (Bld) 1.5 % Normal 0.9-7.0 [facility] Comment on above: Performed By: #### C BC #### [facility] [address] [place] [address] Dr. Juan Argueta Erythrocyte distribution width (RBC) [Ratio] 12.8 % Normal 11.0-15.0 [facility] Comment on above: Performed By: #### C BC #### [facility] [address] [place] [address] Dr. Juan Argueta Hematocrit (Bld) [Volume fraction] 38.6 % Critically low 42.0-54.0 [facility] Comment on above: Performed By: #### C BC #### [facility] [address] [place] [address] Dr. Juan Argueta Hemoglobin (Bld) [Mass/Vol] 13.2 g/dL Critically low 14.0-18.0 [facility] Comment on above: Performed By: #### C BC #### [facility] [address] [place] [address] Dr. Juan Argueta IG # 0.02 10e3/ul Normal 0.00-0.03 [facility] Comment on above: Performed By: #### C BC #### [facility] [address] [place] [address] Dr. Juan Argueta IG % 0.2 % Normal 0.0-0.5 [facility] Comment on above: Performed By: #### C BC #### [facility] [address] [place] [address] Dr. Juan Argueta LYMPH # 0.9 103/ul Critically low 1.2-3.8 [facility] Comment on above: Performed By: #### C BC #### [facility] [address] [place] [address] Dr. Juan Argueta Lymphocytes/100 WBC (Bld) 10.0 % Critically low 20.5-60.0 [facility] Comment on above: Performed By: #### C BC #### [facility] [address] [place] [address] Dr. Juan Argueta MANUAL DIFF REQ NO Normal [facility] Comment on above: Performed By: #### C BC #### [facility] [address] [place] [address] Dr. Juan Argueta MCH (RBC) [Entitic mass] 29.2 pg Normal 25.9-34.0 [facility] Comment on above: Performed By: #### C BC #### [facility] [address] [place] [address] Dr. Juan Argueta MCHC (RBC) [Mass/Vol] 34.2 g/dL Normal 29.9-35.2 [facility] Comment on above: Performed By: #### C BC #### [facility] [address] [place] [address] Dr. Juan Argueta MCV (RBC) [Entitic vol] 85.4 fL Normal 80.0-94.0 [facility] Comment on above: Performed By: #### C BC #### [facility] [address] [place] [address] Dr. Juan Argueta MONO # 0.5 103/ul Normal 0.3-0.8 [facility] Comment on above: Performed By: #### C BC #### [facility] [address] [place] [address] Dr. Juan Argueta Monocytes/100 WBC (Bld) 5.3 % Normal 1.7-12.0 [facility] Comment on above: Performed By: #### C BC #### [facility] [address] [place] [address] Dr. Juan Argueta NEUT # 7.4 103/ul Critically high 1.4-6.5 [facility] Comment on above: Performed By: #### C BC #### [facility] [address] [place] [address] Dr. Juan Argueta Neutrophils/100 WBC (Bld) 82.7 % Critically high 43.0-75.0 [facility] Comment on above: Performed By: #### C BC #### [facility] [address] [place], [place] [address] Dr. Juan Argueta Platelet mean volume (Bld) [Entitic vol] 9.8 fL Normal 9.5-13.5 [facility] Comment on above: Performed By: #### C BC #### [facility] [address] [id number] Juan Argueta PLT 226 103/ul Normal 150-450 [facility] Comment on above: Performed By: #### C BC #### [facility] [address] [address] [address] Juan Argueta RBC 4.52 106/ul Critically low 4.70-6.10 [facility] Comment on above: Performed By: #### C BC #### [facility] [address] [address] [address] Juan Argueta WBC 8.9 103/ul Normal 4.0-11.0 [facility] Comment on above: Performed By: #### C BC #### [facility] [address] [place], [place] [address] HEAD WO CONon [...] JON PARKS Date: 2022-09-10 12:09 Normal [facility] PROF 14(COMP METB)on 09-10- 022 Albumin [Mass/Vol] 4.1 g/dL Normal 3.4-5.0 [facility] Comment on above: Performed By: #### C MP #### [facility] [address] [place] [address] Dr. Juan Argueta Albumin/Globulin [Mass ratio] 1.2 {ratio} Normal [facility] Comment on above: Performed By: #### C MP #### [facility] [address] [place] [address] Dr. Juan Argueta ALP [Catalytic activity/Vol] 100 U/L Normal 46-116 [facility] Comment on above: Performed By: #### C MP #### [facility] [address] [place] [address] Dr. Juan Argueta ALT [Catalytic activity/Vol] 39 U/L Normal 16-63 [facility] Comment on above: Performed By: #### C MP #### [facility] [address] [place] [address] Dr. Juan Argueta Anion gap [Moles/Vol] 16.5 mmol/L Normal [facility] Comment on above: Performed By: #### C MP #### [facility] [address] [place] [address] Dr. Juan Argueta AST [Catalytic activity/Vol] 35 U/L Normal 15-37 [facility] Comment on above: Performed By: #### C MP #### [facility] [address] [place] [address] Dr. Juan Argueta Bilirubin [Mass/Vol] 0.3 mg/dL Normal 0.2-1.0 [facility] Comment on above: Performed By: #### C MP #### [facility] [address] [place] [address] Dr. Juan Argueta Calcium [Mass/Vol] 8.2 mg/dL Critically low 8.5-10.1 [facility] Comment on above: Performed By: #### C MP #### [facility] [address] [place] [address] Dr. Juan Argueta Chloride [Moles/Vol] 101 mmol/L Normal 98-107 [facility] Comment on above: Performed By: #### C MP #### [facility] [address] [address] [address] Juan Argueta CO2 [Moles/Vol] 18.8 mmol/L Critically low 21.0-32.0 [facility] Comment on above: Performed By: #### C MP #### [facility] [address] [address] [address] Juan Argueta Creatinine [Mass/Vol] 1.37 mg/dL Critically high 0.70-1.30 [facility] Comment on above: Performed By: #### C MP #### [facility] [address] [address] [address] Juan Argueta EGFR-AF SAMOAN >60 Normal >=60 [facility] Comment on above: Performed By: #### C MP #### [facility] [address] [place] [address] Dr. Juan Argueta EGFR-NON AF SAMOAN >60 Normal >=60 [facility] Comment on above: Performed By: #### C MP #### [facility] [address] [place] [address] Dr. Juan Argueta Globulin (S) [Mass/Vol] 3.3 g/dL Normal [facility] Comment on above: Performed By: #### C MP #### [facility] [address] [address] [address] Juan Argueta Glucose [Mass/Vol] 103 mg/dL Normal 74-106 [facility] Comment on above: Performed By: #### C MP #### [facility] [address] [place] [address] Dr. Juan Argueta Potassium [Moles/Vol] 4.3 mmol/L Normal 3.5-5.1 [facility] Comment on above: Performed By: #### C MP #### [facility] [address] [place] [address] Dr. Juan Argueta Protein [Mass/Vol] 7.4 g/dL Normal 6.4-8.2 [facility] Comment on above: Performed By: #### C MP #### [facility] [address] [place], [place] [address] Dr. Juan Argueta Sodium [Moles/Vol] 132 mmol/L Critically low 136-145 [facility] Comment on above: Performed By: #### C MP #### [facility] [id number] Juan Argueta Urea nitrogen [Mass/Vol] 23.0 mg/dL Critically high 7.0-18.0 [facility] Comment on above: Performed By: #### C MP #### [facility] [address] [place], [place] [address] Dr. Juan Argueta Urea nitrogen/Creatinine [Mass ratio] 16.8 mg/mg Normal [facility] Comment on above: Performed By: #### C MP #### [facility] [id number] Juan Argueta [address] HEAD WO CONon [...] RISA PENNY Date: 2022-07-19 10:21 Normal [facility] Follow Up (Endocrinology)on 03-25-2022 Follow Up [...] Services - Lab To Draw (Blood Test); Due:[id number];Ordered ; For:Hypothyroidism, Low vitamin D level; Ordered By:Erin Ogden; TSH - Thyroid Stimulating Hormone, Serum; Status:Active; Requested for:[id number]; Perform:Lab Services - Lab To Draw (Blood Test); Due:[id number];Ordered ; For:Hypothyroidism, Low vitamin D level; Ordered [...] visit hypothyrpidism and hypercalcemia History of Present [age]ag[age]qdh89 yo male with severe mental retardation, autism, [...] then eats a day after. not on [place] 300 mg , did not changed since last visit as per sheet . guardian is brother Yogesh nb [phone] seeing GI , EGD was fine. no acute issues. is losing weight again , had a lip biopsy and infected ulcer is healed, weight loss has stopped, on Lt4 50 mcgq day and we need recent albs, slightly more agitated , had a fall with bruise on his face , [place] physician is following. no changes in neuro exam. TSH was normal on labs , , calcium and sodium normal, no acute issues (more content not included)... Normal [facility] XR MODIFIED BARIUM SWALLOWon 09-11-2020 No radiographic evidence of tracheal aspiration. For further information as well as dietary recommendations, please refer to the speech pathologist's detailed report. [employer] Workstation ID: [id number] [facility] EXAMINATION: XR MODIFIED BARIUM SWALLOW HISTORY: [...] no evidence of penetration or tracheal aspiration. [facility] Interface, Rad In Glazeon Speechq - 09/11/2020 10:03 PM EDT EXAMINATION: [...] refer to the speech pathologist's detailed report. [employer] Workstation ID: [id number] [facility] XR MODIFIED BARIUM SWALLOW EXAMINATION: XR [...] refer to the speech pathologist's detailed report. [employer] Workstation ID: [id number] Dictated by: BRANDAN CERVANTES on MonSep 11, 2020 2:10:21 PM EDT Transcribed by: BONIFACIO IBARRA on MonSep 11, 2020 2:53:24 PM EDT Finalized by: BRANDAN CERVANTES on MonSep 11, 2020 10:00:27 PM EDT Normal [facility] Comment on above: Order Comment: Miriam vieyra orders Injury/Trauma or Illness?:Illness/Other How long have you had these symptoms (acute/chronic)?:Chronic Reason for exam?:Pharyngeal dysphagia Type of Exam?:Ongoing Additional signs and symptoms?:Pharyngeal dysphagia Fluoro time in minutes:1.05 Fluoro dose in mGy?:36.08 COVID-19, MOLECULARon 2019 SARS-COV-2 (CEPHEID) Not Detected Normal Not Detected [facility] Comment on above: Result Comment: [...] at the following links: For Healthcare Providers: https://www.fda.gov/media/639666/download For Patients: https://www.fda.gov/media/509089/download Performed By: #### L [id number] #### [facility] [address] Rustam Morillo M.D. [id number] CT ABDOMEN PELVIS W IV CONTR Vicky [...] Grabiel Aleman MD 08/09/19 Final result Normal [facility] Surgical Pathologyon 10-17-2 018 Surgical Pathology (NOTE) [id number] [facility] [address] [facility]. [place], [place] [id number] SURGICAL PATHOLOGY REPORT Patient Name: MARKEL LI MR#: [id number] Specimen #[id number] Final Diagnosis SPECIMEN A : SMALL BOWEL, [...] loss; EGD biopsy; colonoscopy, hemorrhoids; formalin time: J=6502, Y=6576 Source: A: Small bowel biopsies B: Gastric [...] examination confirms the final pathologic diagnosis. Normal [facility] Comment on above: Performed By: #### P PPES #### [facility] [address] [facility]. [place], [place] [id number] Vital Signs Date Time Vital Sign Value Performing Clinician Angelyi mickey 05-15-2024 12:03-0400 Body height 185.4 cm Bree Whiting MD Work Phone: [facility] 05-15-2024 12:03-0400 Body mass index (BMI) [Ratio] 26.91 kg/m2 Bree Whiting MD Work Phone: [facility] 05-15-2024 12:03-0400 Body weight 92.53 kg Bree Whiting MD Work Phone: [facility] 05-15-2024 12:03-0400 Diastolic blood pressure 66 mm[Hg] Bree Whiting MD Work Phone: [facility] 05-15-2024 12:03-0400 Heart rate 61 /min Bree Whiting MD Work Phone: [facility] 05-15-2024 12:03-0400 Systolic blood pressure 102 mm[Hg] Bree Whiting MD Work Phone: [facility] 11-15-2023 10:44-0500 Body height 182.9 cm Bree Whiting MD Work Phone: [facility] 11-15-2023 10:44-0500 Body mass index (BMI) [Ratio] 27.67 kg/m2 Bree Whiting MD Work Phone: [facility] 11-15-2023 10:44-0500 Body weight 92.53 kg Bree Whiting MD Work Phone: [facility] 10-02-2023 15:17-0500 Body temperature 96.8 [degF] Tyrese Alexander DDS Work Phone: [facility] 10-02-2023 15:17-0500 Diastolic blood pressure 91 mm[Hg] Tyrese Alexander DDS Work Phone: [facility] 10-02-2023 15:17-0500 Heart rate 58 /min Tyrese Alexander DDS Work Phone: [facility] 10-02-2023 15:17-0500 Respiratory rate 22 /min Tryese Alexander DDS Work Phone: [employer] 10-02-2023 15:17-0500 SaO2% (BldA) [Mass fraction] 100 % Tyrese Alexander DDS Work Phone: [employer] 10-02-2023 15:17-0500 Systolic blood pressure 141 mm[Hg] Tyrese Alexander DDS Work Phone: [employer] 10-02-2023 11:35-0500 Body height 177.8 cm Tyrese Alexander [employer] Work Phone: [employer] 10-02-2023 11:35-0500 Body mass index (BMI) [Ratio] 29.27 kg/m2 Tyrese Alexander [employer] Work Phone: [facility] 10-02-2023 11:35-0500 Body weight 92.53 kg Tyrese Alexander [employer] Work Phone: [employer] 09-15-2023 15:07-0400 Body height 179 cm Bola Claire MD Work Phone: [employer] 09-15-2023 15:07-0400 Body mass index (BMI) [Ratio] 28.97 kg/m2 Bola Claire MD Work Phone: [employer] 09-15-2023 15:07-0400 Body temperature 97.7 [degF] Bola Claire MD Work Phone: [employer] 09-15-2023 15:07-0400 Body weight 92.81 kg Bola Claire MD Work Phone: [employer] 09-15-2023 15:07-0400 Diastolic blood pressure 72 mm[Hg] Bola Claire MD Work Phone: [employer] 09-15-2023 15:07-0400 Heart rate 58 /min Bola Claire MD Work Phone: [facility] 09-15-2023 15:07-0400 Respiratory rate 32 /min Bola Claire MD Work Phone: [facility] 09-15-2023 15:07-0400 SaO2% (BldA) [Mass fraction] 99 % Bola Claire MD [facility] 09-15-2023 15:07-0400 Systolic blood pressure 112 mm[Hg] Bola Claire MD Work Phone: [facility] 03-20-2019 12:52-0400 BMI (Body Mass Index) 22.24 kg/m2 Erin Harveyhi RK-Xshtigtotcqkf-FAI [address] Work Phone: 03-20-2019 12:52-0400 Body weight 74.39 kg Erin Harveyhi KT-Mrgqbhqiaeweh-THT [address] Work Phone: 03-20-2019 12:52-0400 BP Diastolic 72 mm[Hg] Erin Harveyhi OB-Nehjnotvgkngm-SFO [address] Work Phone: 03-20-2019 12:52-0400 BP Systolic 103 mm[Hg] Erin Harveyhi RC-Rfetisdpfqwor-DHQ [address] Work Phone: 03-20-2019 12:52-0400 BSA (Body Surface Area) 1.96 m2 Erin Harveyhi CU-Dffmtvzsnnmpu-JUC [address] Work Phone: 03-20-2019 12:52-0400 Height 182.88 cm Erin Harveyhi RC-Skutabvgjwxzl-GTC [address] Work Phone: 03-20-2019 12:52-0400 Pulse (Heart Rate) 62 /min Erin Harveyhi TO-Ioilhufpadwql-LDY [address] Work Phone: 03-20-2019 12:52-0400 Pulse Oximetry 100 % Erin Harveyhi JT-Bsmjytfabuusm-NWB [address] Work Phone: 03-20-2019 12:52-0400 Respiratory Rate 14 /min Erin Pan PV-Doryikodozect-QHJ [employer] [address] Work Phone: Encounters Encounter Date Encounter Type Care Provider Facility Start: 11-15-2024 End: 11-15-2024 ambulatory [facility] Start: 05-15-2024 End: 05-15-2024 ambulatory [facility] Start: 05-15-2024 End: 05-15-2024 Office outpatient visit 15 minutes Bree Whiting MD Work Phone: [facility] [place] Comment on above: Hypothyroidism, unsp ecified type (Primary Dx); History of hypercalcemia; Thyroid nodule; Hyperparathyroidism (Multi) Start: 12-15-2023 End: 12-16-2023 ambulatory [facility] EPPS [place] Start: 11-15-2023 End: 11-15-2023 Office outpatient visit 25 minutes Bree Whiting MD Work Phone: [facility] [place] Comment on above: Hypercalcemia (Prima ry Dx); Hypothyroidism, unspecified type Start: 10-02-2023 End: 10-02-2023 ambulatory TYRESE ALEXANDER Facility:[facility] Start: 10-02-2023 End: 10-02-2023 Subsequent hospital visit by physician Tyrese Alexander DDS Work Phone: [facility] Start: 10-02-2023 End: 10-03-2023 ambulatory UNKNOWN PROVIDER Facility:[facility] Start: 10-02-2023 End: 10-03-2023 Patient encounter procedure Tyrese Alexander DDS Work Phone: [facility] Start: 09-27-2023 Telephone encounter Cheri mercado RN [facility] Pre [facility] Start: 09-19-2023 Telephone encounter Lina rubin RN [facility] Comment on above: Pre-surgical Evaluat ion (Informed Consent & Anesthesia consent obtained) Start: 09-15-2023 Encounter for other preprocedural examination UNKNOWN PROVIDER [facility] Start: 09-15-2023 End: 09-15-2023 ambulatory UNKNOWN PROVIDER Facility:[facility] Start: 09-15-2023 End: 09-15-2023 Patient encounter procedure Pse Anesthesia [facility] Comment on above: Pre-op evaluation (P rimary Dx) Start: 09-15-2023 Admission to [facility] Ramu Jernigan DDS Work Phone: [facility] Start: 09-15-2023 End: 09-15-2023 Office outpatient visit 25 minutes Bola Claire MD Work Phone: [facility] Comment on above: Pre-op exam (Primary Dx); Body mass index (BMI) 28.0-28.9, adult Start: 09-15-2023 End: 09-15-2023 Preprocedural examination done Bola Claire MD Work Phone: [facility] Work Phone: Start: 08-18-2023 Admission to [facility] Carline Mcfarland DDS Work Phone: [facility] Start: 03-14-2023 ambulatory Erin Pan Facility:[id number] Start: 01-18-2023 End: 01-19-[address] RALEIGH EPPS Facility:[facility] Start: 01-04-2023 End: 01-05-[address] RALEIGH EPPS Facility:[facility] Start: 10-04-2022 End: 10-05-[address] DOCTOR MULLER Facility:[facility] Start: 09-30-2022 Office outpatient vi sit 15 minutes Sai Batres Work Phone: [facility] Work Phone: Start: 09-30-2022 ambulatory Erin Pan Facility:[id number] Start: 09-20-2022 End: 09-21-[address] RALEIGH EPPS Facility:[facility] Start: 09-10-2022 End: 09-10-[address] WES HUGO . Facility:[facility] Start: 07-19-2022 End: 07-19-[address] RALEIGH EPPS Facility:[facility] Start: 03-25-2022 ambulatory Erin Pan Facility:[id number] Start: 03-16-2022 End: 03-21-2022 Patient encounter procedure Viry Gordoncirillo [facility] Work Phone: [facility] Start: 03-07-2022 End: 03-07-2022 ambulatory JAYDE ENRIQUE . Facility:[facility] Start: 09-11-2020 End: 09-12-2020 Patient encounter procedure [facility] Start: 09-11-2020 End: 09-11-2020 Subsequent hospital visit by physician Raleigh Epps Work Phone: [facility] Comment on above: Pharyngeal dysphagia Start: 09-07-2020 End: 09-07-2020 Patient encounter procedure [facility] EPPS [facility] Start: 08-09-2019 End: 08-12-2019 Patient encounter procedure [facility] Start: 03-20-2019 Patient encounter procedure Erin Wall Nematollahi HJ-Tmuzggppiqkxw-TCJ [address] Work Phone: Start: 11-21-2018 Patient encounter procedure Erin Davenportollahi KD-Meaespwmfncvg-PNV [address] Work Phone: Start: 08-29-2018 End: 08-29-2018 Patient encounter procedure [facility] Start: 08-15-2018 Patient encounter procedure Erin Wall Nematollahi PH-Gqhfmyirlflng-SMV [address] Work Phone: Start: 03-16-2018 Patient encounter procedure Erinangelica Wall Nematollahi CQ-Shmwjynywmskk-AMI [address] Work Phone: Start: 11-17-2017 Patient encounter procedure Erinangelica Wall Nematollahi JI-Jmgykbjfauusx-PKR [address] Work Phone: Start: 05-26-2017 Patient encounter procedure Erinangelica Wall Nematollahi DE-Ipqmschknywpd-KRV [address] Work Phone: Procedures Date Procedure Procedure Detail Performing Clinician Start: 11-15-2024 Follow-up visit Follow-up ROLAND WHITING Start: 09-15-2023 Blood count complete automated Bola Claire MD Work Phone: Start: 09-11-2020 Videofluoroscopy swallow External Transcribed Start: 08-09-2019 Ct abdomen & pelvis w/contrast material ISAM DABOUL Start: 03-20-2019 TSH WITH REFLEX TO F REE T4 IF ABNORMAL [facility] Start: 08-29-2018 DISCHARGE PATIENT ISAM [...] 2) Shingles (RZV) Vaccine (1 of 2) [facility] Start: 2041 Zoster Vaccines (1 of 2) Zoster Vaccines (1 of 2) [facility] Start: 03-07-2032 DTaP/Tdap/Td Vaccines (9 - Td or Tdap) DTaP/Tdap/Td Vaccines (9 - Td or Tdap) [facility] Start: 11-15-2026 [facility] Start: 11-15-2024 End: 11-15-2024 Patient encounter procedure 11/15/2024 9:20 AM EST Office Visit [facility] [address] [address] [address] [place] [id number] [place] [address] [address] Department of [place] [address] [facility] [place] Start: 09-15-2024 Creatinine measurement Basic Metabolic Panel [facility] Start: 09-13-2024 End: 05-15-2025 25-hydroxyvitamin D3 [Mass/volume] in Serum or Plasma Vitamin D 25-Hydroxy,Total (for eval of Vitamin D levels) Lab Routine History of hypercalcemia Hyperparathyroidism (Multi) Expected: 09/13/2024, Expires: 05/15/2025 [facility] Work Phone: Comment on above: Expected: 09/13/2024, Expires: Start: 09-13-2024 End: 05-15-2025 Magnesium [Mass/volume] in Serum or Plasma Magnesium Lab Routine History of hypercalcemia Expected: 09/13/2024, Expires: 05/15/2025 [facility] Work Phone: Comment on above: Expected: 09/13/2024, Expires: Start: 09-13-2024 End: 05-15-2025 Parathyrin.intact [Mass/volume] in Serum or Plasma Parathyroid Hormone, Intact Lab Routine History of hypercalcemia Expected: 09/13/2024, Expires: 05/15/2025 [facility] Work Phone: Comment on above: Expected: 09/13/2024, Expires: Start: 09-13-2024 End: 05-15-2025 Renal function 2000 panel - Serum or Plasma Renal Function Panel Lab Routine History of hypercalcemia Expected: 09/13/2024, Expires: 05/15/2025 [facility] Work Phone: Comment on above: Expected: 09/13/2024, Expires: Start: 09-13-2024 End: 05-15-2025 Thyrotropin [Units/volume] in Serum or Plasma Thyroid Stimulating Hormone Lab Routine Hypothyroidism, unspecified type Expected: 09/13/2024, Expires: 05/15/2025 [facility] Service Area Work Phone: Comment on above: Expected: 09/13/2024, Expires: Start: 09-13-2024 End: 05-15-2025 Thyroxine (T4) free [Mass/volume] in Serum or Plasma Thyroxine, Free Lab Routine Hypothyroidism, unspecified type Expected: 09/13/2024, Expires: 05/15/2025 [facility] Work Phone: Comment on above: Expected: 09/13/2024, Expires: Start: 07-14-2024 Influenza vaccination Influenza Vaccine (#1) [facility] Start: 05-15-2024 End: 05-15-2025 US Thyroid gland US thyroid Imaging Routine Thyroid nodule Expected: 05/15/2024, Expires: 05/15/2025 [facility] Work Phone: Comment on above: Expected: 05/15/2024, Expires: Start: 05-15-2024 End: 05-15-2024 Patient encounter procedure 05/15/2024 11:40 AM EDT Office Visit [facility] [place] [id number] [address] [id number] [place] [address] [address] Department of [place] [address] [facility] [place] Start: 11-15-2023 End: 11-15-2024 Calcitriol [Mass/volume] in Serum or Plasma Vitamin D 1,25 Dihydroxy (for eval of hypercalcemia) Lab Routine Hypercalcemia Expected: 11/15/2023, Expires: 11/15/2024 [facility] Work Phone: Comment on above: Expected: 11/15/2023, Expires: Start: 11-15-2023 End: 11-15-2024 Calcium.ionized [Moles/volume] in Blood Calcium, Ionized Lab Routine Hypercalcemia Expected: 11/15/2023, Expires: 11/15/2024 [facility] Work Phone: Comment on above: Expected: 11/15/2023, Expires: Start: 11-15-2023 End: 11-15-2024 Hepatic function 2000 panel - Serum or Plasma Hepatic Function Panel Lab Routine Hypercalcemia Expected: 11/15/2023, Expires: 11/15/2024 [facility] Work Phone: Comment on above: Expected: 11/15/2023, Expires: Start: 11-15-2023 End: 11-15-2024 Parathyrin.intact [Mass/volume] in Serum or Plasma Parathyroid Hormone, Intact Lab Routine Hypercalcemia Expected: 11/15/2023, Expires: 11/15/2024 [facility] Service Area Work Phone: Comment on above: Expected: 11/15/2023, Expires: Start: 11-15-2023 End: 11-15-2024 Renal function 2000 panel - Serum or Plasma Renal Function Panel Lab Routine Hypercalcemia Expected: 11/15/2023, Expires: 11/15/2024 [facility] Work Phone: Comment on above: Expected: 11/15/2023, Expires: Start: 11-15-2023 End: 11-15-2024 Thyrotropin [Units/volume] in Serum or Plasma Thyroid Stimulating Hormone Lab Routine Hypothyroidism, unspecified type Expected: 11/15/2023, Expires: 11/15/2024 [facility] Work Phone: Comment on above: Expected: 11/15/2023, Expires: Start: 11-15-2023 End: 11-15-2024 Thyroxine (T4) free [Mass/volume] in Serum or Plasma Thyroxine, Free Lab Routine Hypothyroidism, unspecified type Expected: 11/15/2023, Expires: 11/15/2024 [facility] Work Phone: Comment on above: Expected: 11/15/2023, Expires: Start: 10-02-2023 End: 10-02-2023 DENTAL RESTORATIONS DENTAL RESTORATIONS Routine scheduled Caries 10/02/2023 1:10 PM EST [facility] Start: 10-02-2023 End: 10-02-2023 Admission to same day surgery center 10/02/2023 11:24 AM EST - 10/02/2023 1:21 PM EST Surgery [facility] [address] [place], [place] [id number] Tyrese Alexander, [address] [place] [address] DENTAL RESTORATIONS [facility] Comment on above: DENTAL RESTORATIONS Start: 10-02-2023 End: 10-02-2023 DENTAL RESTORATIONS DENTAL RESTORATIONS Routine scheduled Caries 10/02/2023 11:24 AM EST [facility] Start: 10-02-2023 End: 10-02-2023 Admission to same day surgery center 10/02/2023 7:30 AM EST - 10/02/2023 9:27 AM EST Surgery [facility] [address] [place] [id number] Tyrese Alexander, DDS [address] [place] [address] DENTAL RESTORATIONS [facility] Comment on above: DENTAL RESTORATIONS Start: 10-02-2023 End: 10-02-2023 DENTAL RESTORATIONS DENTAL RESTORATIONS Routine scheduled Caries 10/02/2023 7:30 AM EST [facility] Start: 10-02-2023 Subsequent hospital visit by physician [facility] Start: 10-02-2023 End: 10-02-2023 [facility] Start: 09-15-2023 End: 09-15-2023 Patient encounter procedure 09/15/2023 2:00 PM EDT Office Visit [facility] [address] [place] [address] Bola Claire MD [address] [place] [address] [facility] Start: 07-14-2023 COVID-19 Vaccine ( season) COVID-19 Vaccine ( season) [facility] Start: 07-14-2023 COVID-19 Vaccine ( season) COVID-19 Vaccine () [facility] Start: 07-14-2023 Influenza vaccination Influenza Vaccine (#1) [facility] Start: 02-09-2021 COVID-19 Vaccine (3 - Pfizer series) COVID-19 Vaccine (3 - Pfizer series) [facility] Start: 07-14-2020 Influenza vaccination given Sequential Influenza Vaccine (#1) [facility] Start: 08-15-2019 Thyroid stimulating hormone measurement TSH Level [facility] Start: 2018 HPV Vaccine (optional start 27-45 years) HPV Vaccine (optional start 27-45 years) [facility] Start: 07-14-2013 Annual wellness visit Annual Wellness Visit ([id number]) [facility] Start: 2010 Hepatitis B Vaccines (1 of 3 - 19+ 3-dose series) Hepatitis B Vaccines (1 of 3 - 19+ 3-dose series) [facility] Start: 10-28-2009 Varicella vaccination [facility] Start: 2009 Hepatitis C antibody, confirmatory test Hepatitis C Screening [facility] Start: 2009 Hepatitis C screening [facility] Start: 2006 HIV screening [facility] Start: 1994 History and physical examination, annual for health maintenance Wellness Visit [facility] Start: 1991 Basic metabolic 2000 panel - Serum or Plasma Basic Metabolic Panel [facility] Start: 1991 Creatinine measurement Basic Metabolic Panel [facility] Start: 1991 Hepatitis B Vaccines (1 of 3 - 3-dose series) Hepatitis B Vaccines (1 of 3 - 3-dose series) [facility] Start: 1991 HIV screening HIV Screening [facility] Start: 1991 Lipid panel Lipid Panel [facility] Start: 1991 Medicare Annual Wellness Visit Medicare Annual Wellness Visit (AWV) [facility] Start: 1991 Tetanus vaccination Tetanus: Every 10yrs [facility] Start: 1991 Thyroid stimulating hormone measurement TSH [facility] End: 09-15-2024 Basic metabolic 2000 panel - Serum or Plasma BASIC METABOLIC PANEL Lab Routine Pre-op exam 1 Occurrences starting 09/15/2023 until 09/15/2024 [facility] Work Phone: Comment on above: 1 Occurrences starting 09/15/2023 until 09/15/2024 CBC panel - Blood by Automated count COMPLETE BLOOD COUNT Lab Routine Pre-op exam Ordered: 09/15/2023 [facility] Comment on above: Ordered: 09/15/2023 DENTAL RESTORATIONS DENTAL FRANKLYN RATIONS Routine scheduled Caries [facility] Immunizations Immunization Date Immunization Notes Care Provider [facility] 03-07-2022 diphtheria, tetanus toxoids and pertussis vaccine Viry Keeo [facility] Work Phone: [facility] 09-08-2021 influenza, injectabl e, quadrivalent, preservative free Viry Gordoncirillo [facility] Work Phone: [facility] 09-08-2021 influenza virus vaccine, unspecified formulation Carline Mcfarland DDS Work Phone: [facility] 12-15-2020 Pfizer SARS-COV-2 (COVID-19) vaccine, age 12+ yrs, mRNA, spike protein, LNP, preservative free, 30 mcg/0.3mL dose (XRP=450) Viry Gordoncirillo [facility] Work Phone: [facility] 11-24-2020 Pfizer SARS-COV-2 (COVID-19) vaccine, age 12+ yrs, mRNA, spike protein, LNP, preservative free, 30 mcg/0.3mL dose (PCJ=564) Viry Gordoncirillo [facility] Work Phone: [facility] 08-27-2020 influenza, injectabl e, quadrivalent, preservative free Viry Angel RDH Work Phone: [facility] 08-22-2018 influenza, injectabl e, quadrivalent, contains preservative Viry Angel RDH Work Phone: [facility] Work Phone: 09-06-2017 influenza, injectabl e, quadrivalent, contains preservative Viry Angel RDH Work Phone: [facility] 11-15-2016 tetanus toxoid, redu danika diphtheria toxoid, and acellular pertussis vaccine, adsorbed Erinalva Wall [facility] Comment on above: Series: 09-03-2015 influenza, injectabl e, quadrivalent, preservative free Viry Angel RDH Work Phone: [facility] 09-30-2009 novel [id number], preservative-free, injectable Viry Angel RDH Work Phone: [facility] 09-04-2008 influenza virus vaccine, whole virus Viry Angel RD Work Phone: [facility] 08-29-2007 influenza, seasonal, injectable Viry Angel RDH Work Phone: [facility] 03-29-2007 meningococcal polysaccharide (groups A, C, Y and W-135) diphtheria toxoid conjugate vaccine (MCV4P) Viry Angel RD Work Phone: [facility] 09-29-2006 tetanus toxoid, redu danika diphtheria toxoid, and acellular pertussis vaccine, adsorbed Viry Angel RD Work Phone: [facility] 09-12-2006 influenza, seasonal, injectable Viry Angel RDH Work Phone: [facility] 06-25-2003 measles, mumps and rubella virus vaccine Viry Angel RD Work Phone: [facility] 09-25-1996 diphtheria, tetanus toxoids and pertussis vaccine Viry Angel RD Work Phone: [facility] 09-25-1996 poliovirus vaccine, inactivated Viry Angel RD Work Phone: [facility] 02-05-1993 diphtheria, tetanus toxoids and pertussis vaccine Viry Angel RD Work Phone: [facility] 11-23-1992 haemophilus influenz ae type b vaccine, conjugate unspecified formulation Viry Angel [facility] Work Phone: [facility] 11-23-1992 measles, mumps and rubella virus vaccine Viry Angel [facility] Work Phone: [facility] 10-02-1992 poliovirus vaccine, inactivated Viry Angel [facility] Work Phone: [facility] 02-03-1992 diphtheria, tetanus toxoids and pertussis vaccine Viry Angel [facility] Work Phone: [facility] 02-03-1992 haemophilus influenz ae type b vaccine, conjugate unspecified formulation Viry Angel [facility] Work Phone: [facility] 1991 diphtheria, tetanus toxoids and pertussis vaccine Viry Angel [facility] Work Phone: [facility] 1991 haemophilus influenz ae type b vaccine, conjugate unspecified formulation Viry Angel [facility] Work Phone: [facility] 1991 trivalent poliovirus vaccine, live, oral Viry Angel [facility] Work Phone: [facility] 1991 diphtheria, tetanus toxoids and pertussis vaccine Viry Angel RD Work Phone: [facility] 1991 haemophilus influenz ae type b vaccine, conjugate unspecified formulation Viry Angel [facility] Work Phone: [facility] 1991 trivalent poliovirus vaccine, live, oral Viry Dykesllo [facility] Work Phone: [facility] Payers Date Payer Category Payer Unknown 2020 Medicaid MEDICAID [facility] [id number] 2020-Present [id number] 2016 Medicare [id number] 2012 Medicare [id number] 2010 Medicaid [id number] [id number] 1991 Unknown [id number] 2.16.840.1.685399.3.579.2.176 1991 Unknown [id number] 2.16.840.1.661177.3.579.2.176 1991 Unknown [id number] 2.16.840.1.588508.3.579.2.903 1991 Unknown [id number] 2.16.840.1.069430.3.579.2.593 1991 Unknown [id number] 2.16.840.1.730212.3.579.2.593 1991 Unknown [id number] 2.16.840.1.540324.3.579.2.593 1991 Unknown [id number] 2.16.840.1.932588.3.579.2.593 1991 Unknown [id number] 2.16.840.1.645371.3.579.2.593 1991 Unknown [id number] 2.16.840.1.723571.3.579.2.593 1991 Unknown [id number] 2.16.840.1.845160.3.579.2.593 1991 Unknown [id number] 2.16.840.1.870021.3.579.2.356 1991 Unknown [id number] 2.16.840.1.291971.3.579.2.356 1991 Unknown [id number] 2.16.840.1.895979.3.579.2.356 1991 Unknown [id number] 2.16.840.1.583592.3.579.2.732 1991 Unknown [id number] 2.16.840.1.306297.3.579.2.732 1991 Unknown [id number] 2.16.840.1.317392.3.579.2.732 1991 Unknown [id number]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
[2025-01-22 08:14] LABS: Triiodothyronine (T3) 72 ng/dL (71-180)
== END 2025-01-21 06:51 | disposition home or self-care (01) ==
LOC: LAB 06:53
PROVIDERS: PCP Family Medicine; Visit Provider Family Medicine
DX: Z79.891 Long term (current) use of opiate analgesic (principal); E03.9 Hypothyroidism, unspecified; E04.1 Nontoxic single thyroid nodule
CPT/HCPCS: 36415; 84436; 84443; 84480

== ENCOUNTER 2025-03-24 20:04 | Outpatient (REF) | payer MEDICARE, MEDICAID, SELFPAY ==
--- OUTSIDE RECORDS SUMMARY | 2025-03-24 20:08 | XMS_ITS | CCD ---
Author Organization [facility] Care Team Providers Care Copy Supervisor Name Role Phone DABOUL, ISAM Admitting Unavailable DABOUL, ISAM Attending Unavailable EPPSRALEIGH Primary Care Unavailable DABOUL, ISAM Referring Unavailable EPPSRALEIGH Primary Care Unavailable EPPSRALEIGH Admitting Unavailable EPPSRALEIGH Referring Unavailable EppsRaleigh Unavailable EppsRaleigh mccain Primary Care Provider [phone] [place] EPPS Attending Unavailable EPPSRALEIGH Referring Unavailable [...] Unavailable Sai Batres MD Primary Care Provider [phone] [place] EPPS Referring Unavailable EPPSRALEIGH MCCAIN Attending Unavailable EPPSRALEIGH MCCAIN Admitting Unavailable BREE WHITING Attending Unavailable SAI BATRES Primary Care Unavailable BREE WHITING Attending Unavailable SAI BATRES Primary Care Unavailable Allergies Allergy Classification Reported Allergen(s) Allergy Type Date of Onset Reaction(s) Facility (3 sources) fluvoxaMINE; Translations: [Luvox] Drug Allergy [facility] Repository (16 sources) QUEtiapine; Translations: [SEROquel TABS] Drug Allergy 02-03-2017 Unknown [facility] [employer] [address] Work Phone: (5 sources) risperiDONE; Translations: [risperiDONE TABS] Drug Allergy 02-06-2017 Unknown [facility] [employer] [address] Work Phone: (2 sources) Valproate; Translations: [Depakote] Drug Allergy [facility] [employer] [address] Work Phone: (16 sources) fluvoxaMINE; Translations: [FLUVOXAMINE] Drug Allergy 02-06-2017 Unknown [facility] (13 sources) Valproate; Translations: [VALPROIC ACID] Drug Allergy 02-03-2017 [facility] (13 sources) risperiDONE; Translations: [RISPERIDONE] Drug Allergy 02-06-2017 [facility] (2 sources) QUEtiapine; Translations: [QUETIAPINE] Drug Allergy 02-03-2017 [facility] Repository (3 sources) Valproate; Translations: [DIVALPROEX] Drug Allergy 11-15-2023 Unknown [facility] (1 source) QUEtiapine; Translations: [SEROquel] Drug Allergy [facility] Repository Medications Current Medications Medication Drug [...] a day. Active take 2 capsules by [facility] three times daily Docusate Sodium 100 [...] Active Start: 03-25-2022 take 1 tablet by [facility] at bedtime guanFACINE HCl - 1 MG Oral Tablet TAKE 1 TABLET AT BEDTIME. Quantity: 0 Refills: 0 Ordered: 25-Mar-2022 DO Start : 25-Mar-2022 Active take 1 tablet by [facility] twice daily guanFACINE (Tenex) 2 mg tablet Take 1 tablet (2 mg) by mouth twice a day. 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 00TIFF Normal [facility] Anesthesia Postprocedure Clara luationon 10-03-2023 Professor Of Religion Authentication Interface Message Text Anesthesia Postoperative Assessment: [...] EVENTS: No notable events documented. Normal [facility] Anesthesia Preprocedure Eval uationon 10-02-2023 Professor Of Religion Authentication Interface Message Text ASA: 3 No [...] were discussed with the patient and/or legal termite control representative. The risks, benefits and alternatives were reviewed. Questions regarding anesthesia were answered. Patient and/or legal termite control representative knows such anesthetics and procedures may be performed by Resident physicians, Certified Anesthesiologist Assistants, or Certified Nurse Anesthetists under the supervision of a physician. The patient /or the patient's legal termite control representative agree with the plan for anesthesia. [...] N/A 02/06/2017 Procedure: DENTAL RESTORATIONS; Surgeon: Noé Derw DDS; Location: [facility]; Service: Dental * DENTAL RESTORATIONS Bilateral 02/15/2021 Procedure: DENTAL RESTORATIONS; Surgeon: Grabiel Cummings DDS; Location: [facility] Surgery [place]; Service: Dental * EXTRACTION, TOOTH 02/06/2017 Procedure: EXTRACTION, TOOTH; Surgeon: Noé Drew DDS; Location: [facility]; Service: Dental * UNLISTED PROCEDURE, DENTOALVEOLAR STRUCTURES 04/29/10 * X-RAY EXAM OF TEETH. [id number] 04/29/10 Social History Socioeconomic History * Marital status: Single Tobacco Use * Smoking status: Never * Smokeless tobacco: Never Social History Narrative [facility]. Brother is guardian. Current Outpatient Medications [...] carbamazepine (more content not included)... Normal [facility] Anesthesia Transfer Of Careo n 10-02-2023 Professor Of Religion Authentication Interface Message Text Patient taken to [...] surgical history indicates: X-RAY EXAM OF TEETH. [id number] (04/29/10) UNLISTED PROCEDURE, DENTOALVEOLAR STRUCTURES (04/29/10) DENTAL RESTORATIONS (02/06/2017) Procedure: DENTAL RESTORATIONS; Surgeon: Noé Drew DDS; Location: [facility]OPERATIVE SERVICES; Service: Dental EXTRACTION, TOOTH (02/06/2017) Procedure: EXTRACTION, TOOTH; Surgeon: Noé Drew DDS; Location: [facility]IVE SERVICES; Service: Dental DENTAL RESTORATIONS (02/15/2021) Procedure: DENTAL RESTORATIONS; Surgeon: Grabiel Cummings DDS; Location: [facility]; Service: Dental Allergies: Depakote [valproic acid], Luvox [fluvoxamine], Risperidone, and Seroquel [quetiapine] Basic Operating Room Facts: Surgeon(s): Tyrese Alexander DDS Anesthesiologist: Timothy Elizalde MD TOOL MAINTENANCE WORKER: Rainer Fatima APRN-CRNA Anesthesia Student: Joyce Rivers [...] report was received. KATIE Cunningham Normal [facility] Blood Attestationon 11-20-20 23 Professor Of Religion Authentication Interface Message Text Blood Attestation: ATTESTATION OF INFORMED CONSENT FOR BLOOD: The transfusion of blood and/or blood components were discussed with the patient and/or legal termite control representative. The risks, benefits and alternatives were reviewed. Questions regarding blood transfusions were answered. The patient /or the patient's legal termite control representative agree with the plan for transfusion of blood and/or blood components. Normal [facility] Brief Operative Noteon 10-02 Professor Of Religion Authentication Interface Message Text Brief Operative Note PHE OR 3 Markel Li 33 year old male Surgical Contact Serial Number: [id number] Preoperative Diagnosis: Caries [K02.9] Autism [ F 84] Postoperative Diagnosis: * Caries [K02.9] Procedures: Full mouth X ray [89690] Comprehensive exam [54676] Prophylaxis [19106] Restorations [49812] Surgeon(s): Surgeon(s): Tyrese Alexander DDS Staff: Emergency Room Orderly Nurse: Nina Galan RN Manager Channel: Ca Raza DDS; Rosas Narayanan DDS Anesthesia: General Anesthesiologist: Timothy Elizalde MD TOOL MAINTENANCE WORKER: Rainer Fatima APRN-CRNA Anesthesia Student: Joyce Rivers [...] Martini DDS 10/02/2023 2:29 PM Normal [facility] OP Noteon 10-02-2023 Professor Of Religion Authentication Interface Message Text Surgical Case Number Data Unavailable Operating Room Data Unavailable Preoperative Diagnosis: Caries [K02.9] Autism [ F 84] Preoperative Diagnosis: Caries [K02.9] Autism [ F 84] Postoperative Diagnosis: Autism [ F 84] Procedures: Full mouth X ray [86159] Comprehensive exam [69428] Prophylaxis [66814] Restorations [40212] Postoperative Diagnosis(es): Same @ENCORD@ Surgeon: Dr Tyra DDS Assembler Trim Surgeon: WILLIAMS Corcoran DDS Anesthesia: General- Nasal [...] Martini DDS 10/02/2023 2:34 PM Normal [facility] Progress Noteson 10-02-2023 Professor Of Religion Authentication Interface Message Text ----- Monday, October 02, 2023 at 2:27:57 PM ----- ----- Provider: Alessio Mary DDS -- Clinic: [facility] ----- [place] notes, [facility] pt is read for tx good [...] Note Type: OP Note Status: Cosign Needed Certified Performance Technologist: Rosas Narayanan DDS (Resident) Cosign Required: Yes Expand All Collapse All Surgical Case Number Data Unavailable Operating Room Data Unavailable Preoperative Diagnosis: Caries [K02.9] Autism [ F 84] Preoperative Diagnosis: Caries [K02.9] Autism [ F 84] Postoperative Diagnosis: Autism [ F 84] Procedures: Full mouth X ray [15369] Comprehensive exam [85271] Prophylaxis [79120] Restorations [81286] Postoperative Diagnosis(es): Same @ENCORD@ Surgeon: Dr Tyra DDS Assembler Trim Surgeon: WILLIAMS Corcoran DDS Anesthesia: General- Nasal [...] Martini DDS 10/02/2023 2:34 PM Normal [facility] Telephone Encounteron 2022 Professor Of Religion Authentication Interface Message Text DD adult dental restorations on 10/02 under [place] at [place]. PSE completed - consents obtained. PSE RN spoke to Miriam from [facility], confirmed O, [place] address, and 1100 arrival time Normal [facility] Telephone Encounteron 2022 Professor Of Religion Authentication Interface Message Text Informed Consent for dental surgery AND Anesthesia consent obtained and scanned into [facility]. Scheduled for surgery 10/02/2023. Normal [facility] BASIC METABOLIC PANELon 11-0 Anion gap [Moles/Vol] 13 mmol/L Normal - The [facility] Comment on above: Performed By: #### C H8 ####S PATHOLOGY [id number] [place], [place], Calcium [Mass/Vol] 9.6 mg/dL Normal 8.4-10.[address] [facility] Comment on above: Performed By: #### C H8 ####S PATHOLOGY [id number] [place], [place], Chloride [Moles/Vol] 105 mmol/L Normal 97-111 [facility] Comment on above: Performed By: #### C H8 ####[facility] PATHOLOGY [id number] [place], CO2 [Moles/Vol] 26 mmol/L Normal 21-30 The [facility] Comment on above: Performed By: #### C H8 ####[facility] PATHOLOGY [id number] [place], Creatinine [Mass/Vol] 1.58 mg/dL High 0.80-1.30 [facility] Comment on above: Performed By: #### C H8 ####[facility] PATHOLOGY [id number] [place], ESTIMATED GFR (CKD-EPI) 59 mL/min/1.73sqm Low >=60 The [facility] Comment on above: Result Comment: 2020 CKD EPI Equation using Creatinine without Race Comment: Estimated glomerular filtration rate (eGFR) is calculated without a race coefficient. Values should be interpreted in the context of the patient's full clinical presentation. Reference: 1. Jya C, Joel M, Buddy BARRIENTOS, et al.. A Unifying Approach for GFR Estimation: Recommendations of the NKF-ASN Task Force on Reassessing the Inclusion of Race in Diagnosing Kidney Disease. Japanese Journal of Kidney Diseases 2021;79(2):268-88.e1. 2. N Engl J Med 1 Vol. 385 Issue 19 Pages 2330-2170 Performed By: #### C H8 ####[facility] PATHOLOGY [id number] [place], [place], Glucose [Mass/Vol] 69 mg/dL Normal 68-110 The [facility] Comment on above: Performed By: #### C H8 ####S PATHOLOGY [id number] [place], Potassium [Moles/Vol] 4.1 mmol/L Normal 3.3-5.3 [facility] Comment on above: Performed By: #### C H8 ####S PATHOLOGY [id number] [place], Sodium [Moles/Vol] 140 mmol/L Normal 135-148 The [facility] Comment on above: Performed By: #### C H8 ####[facility] PATHOLOGY [id number] [place], Urea nitrogen [Mass/Vol] 18 mg/dL Normal 8-22 The [facility] Comment on above: Performed By: #### C H8 ####S PATHOLOGY [id number] [place], [place], Basic metabolic 2000 panelon 09-15-2023 Anion [...] Inclusion of Race in Diagnosing Kidney Disease. Japanese Journal of Kidney Diseases 202;79(2):268-88.e1. 2. N Engl J Med 1 Vol. 385 Issue 19 Pages 4631-7224 Glucose [Mass/Vol] 69 mg/dL 68 - 110 mg/dL [facility] Interpretation and review of laboratory results Abnormal [facility] Potassium [Moles/Vol] 4.1 mmol/L 3.3 - 5.3 mmol/L [facility] Sodium [Moles/Vol] 140 mmol/L 135 - 148 mmol/L [facility] Urea nitrogen [Mass/Vol] 18 mg/dL 8 - 22 mg/dL [facility] CBC panel Auto (Bld)on 09-15 Erythrocyte distribution width (RBC) [Ratio] 13.3 % 11.5 - 14.5 % [facility] Hematocrit (Bld) [Volume fraction] 41.8 % 41.0 - 53.0 % [facility] Hemoglobin (Bld) [Mass/Vol] 13.8 g/dL Low 13.9 - 16.3 g/dL [facility] Interpretation and review of laboratory results Abnormal [facility] MCH (RBC) [Entitic mass] 28.7 pg 26.0 - 34.0 pg [facility] MCHC (RBC) [Mass/Vol] 32.9 g/dL 32.0 - 35.9 g/dL [facility] MCV (RBC) [Entitic vol] 87 fL 80 - 100 fL [facility] Platelet mean volume (Bld) [Entitic vol] 8.7 fL 7.5 - 11.2 fL [facility] Platelets (Bld) [#/Vol] 213 10*3/uL 150 - 400 K/uL [facility] RBC (Bld) [#/Vol] 4.80 10*6/uL [facility] WBC (Bld) [#/Vol] 6.3 10*3/uL 4.5 - 11.5 K/uL [facility] COMPLETE BLOOD COUNTon 09-15 Erythrocyte distribution width (RBC) [Ratio] 13.3 % Normal 11.5-14.5 The [facility] Comment on above: Performed By: #### C BC ####[facility] PATHOLOGY [id number] [place], [address] Hematocrit (Bld) [Volume fraction] 41.8 % Normal 41.0-53.0 The [facility] Comment on above: Performed By: #### C BC ####[facility] PATHOLOGY [id number] [place], Hemoglobin (Bld) [Mass/Vol] 13.8 g/dL Low 13.9-16.3 The [facility] Comment on above: Performed By: #### C BC ####[facility] PATHOLOGY [id number] [place], MCH (RBC) [Entitic mass] 28.7 pg Normal 26.0-34.0 The [facility] Comment on above: Performed By: #### C BC ####[facility] PATHOLOGY [id number] [place], MCHC (RBC) [Mass/Vol] 32.9 g/dL Normal 32.0-35.9 The [facility] Comment on above: Performed By: #### C BC ####[facility] PATHOLOGY [id number] [place], MCV (RBC) [Entitic vol] 87 fL Normal 80-100 The [facility] Comment on above: Performed By: #### C BC ####[facility] PATHOLOGY [id number] [place], Platelet mean volume (Bld) [Entitic vol] 8.7 fL Normal 7.5-11.2 The [facility] Comment on above: Performed By: #### C BC ####[facility] PATHOLOGY [id number] [place], Platelets (Bld) [#/Vol] 213 10*3/uL Normal 150-400 The [facility] Comment on above: Performed By: #### C BC ####S PATHOLOGY [id number] [place], RBC (Bld) [#/Vol] 4.80 10*6/uL Normal 4.50-5.90 The [facility] Comment on above: Performed By: #### C BC ####[facility] PATHOLOGY [id number] [place], WBC (Bld) [#/Vol] 6.3 10*3/uL Normal 4.5-11.5 The [facility] Comment on above: Performed By: #### C ####[facility] PATHOLOGY [id number] [place], [address] PSE Chartingon 09-15-2023 Professor Of Religion Authentication Interface Message Text Dental Consult The [...] Treatment Dental Treatment in the OR Follow-up [facility] Family Dentistry if needed Note: Legal guardian: Yogesh Li (BROTHER): [phone]. The patient lives in a Facility. A caregiver brushes his teeth twice a day. Ramu Jernigan DDS Normal [facility] Patient Instructionson 09-15 Professor Of Religion Authentication Interface Message Text RECOMMENDATIONS: Patient was instructed on the following: Nothing by mouth after midnight before surgery except following meds with sip of water on AM of surgery: as per anesthesia Stop aspirin 7 days before surgery Stop NSAID 5 days before surgery Stop Vitamin E 10 days prior to surgery Stop alternative/herbal medication 10 days before surgery Normal [facility] Progress Noteson 09-15-2023 Professor Of Religion Authentication Interface Message Text Blood pressure 112/72, [...] [Quetiapine] Latex Allergy: No Surgical Procedure: dental orthodox Surgeon: unknown Date of Surgery: 10/02/2023 HISTORY: [...] DENTAL RESTORATIONS; Surgeon: Grabiel Cummings DDS; Location: [facility] [place]; Service: Dental EXTRACTION, TOOTH 02/06/2017 Procedure: EXTRACTION, TOOTH; Surgeon: Noé Drew DDS; Location: PERIOPERATIVE SERVICES; Service: Dental UNLISTED PROCEDURE, DENTOALVEOLAR STRUCTURES 04/29/10 X-RAY EXAM OF TEETH. 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 Normal [facility] Professor Of Religion Authentication Interface Message Text Patient was identified by name and date of . Lashon Parsons Normal [facility] Progress Noteson 09-06-2023 Professor Of Religion Authentication Interface Message Text Parent/guardian(Mag gaines @ [place]) was contacted for PSE AND OR scheduled -- confirmed information with mom, also informed mom importance of receiving PSE call -- if not received surgery will be canceled ----- Wednesday, September 06, 2023 at 11:27:36 AM ----- ----- Provider: Bridget Lombardi Specialist -- Clinic: [place] ----- Normal [facility] Follow Up (Endocrinology)on 03-14-2023 Follow Up [...] Services - Lab To Draw (Blood Test); Due:[id number];Ordered ; For:Hypocalcemia, Hypothyroidism, Low vitamin D level; Ordered By:Erin Ogden; Osmolality, Serum; Status:Active; Requested for:14Mar2023; Perform:Lab Services - Lab To Draw (Blood Test); Due:[id number];Ordered ; For:Hypocalcemia, Hypothyroidism, Low vitamin D level; [...] visit regarding his thyroid. History of Present Xgklubb26 yo male with severe mental retardation, autism, bipolar disorder,severe psychosis,GERD, HTN , hypercalcemia [facility] with exacerbation by lithium intake (that has [...] then eats a day after. not on Mucarabones 300 mg , did not changed since last visit as per sheet . guardian is brother Yogesh nb [phone] seeing GI , EGD was fine. no acute issues. is losing weight again , had a lip biopsy and infected ulcer is healed, weight loss has stopped, on Lt4 50 mcgq day and we need recent albs, slightly more agitated , had a fall with bruise on his face , [place] physician is following. no changes in neuro [...] were norm (more content not included)... Normal [facility] OSMOLALITYon 01-20-2023 Osmolality [Osmolality] 291 mosm/kg Normal 275-295 [facility] Comment on above: Performed By: #### C MP, T4, TSH #### [facility] [address] [place] [address] Dr. Juan Argueta CBC AUTO DIFFon 01-18-2023 BASO # 0.0 103/ul Normal 0.0-0.1 [facility] Comment on above: Performed By: #### C MP, T4, TSH #### [facility] [address] [place] [address] Dr. Juan Argueta Basophils/100 WBC (Bld) 0.6 % Normal 0.2-2.0 [facility] Comment on above: Performed By: #### C MP, T4, TSH #### [facility] [address] [place] [address] Dr. Juan Argueta EO # 0.1 103/ul Normal 0.0-0.7 [facility] Comment on above: Performed By: #### C MP, T4, TSH #### [facility] [address] [place] [address] Dr. Juan Argueta Eosinophils/100 WBC (Bld) 2.8 % Normal 0.9-7.0 [facility] Comment on above: Performed By: #### C MP, T4, TSH #### [facility] [address] [place] [address] Dr. Juan Argueta Erythrocyte distribution width (RBC) [Ratio] 12.9 % Normal 11.0-15.0 [facility] Comment on above: Performed By: #### C MP, T4, TSH #### [facility] [address] [place] [address] Dr. Juan Argueta Hematocrit (Bld) [Volume fraction] 45.4 % Normal 42.0-54.0 [facility] Comment on above: Performed By: #### C MP, T4, TSH #### [facility] [address] [place] [address] Dr. Juan Argueta Hemoglobin (Bld) [Mass/Vol] 15.4 g/dL Normal 14.0-18.0 [facility] Comment on above: Performed By: #### C MP, T4, TSH #### [facility] [address] [place] [address] Dr. Juan Argueta IG # 0.01 10e3/ul Normal 0.00-0.03 [facility] Comment on above: Performed By: #### C MP, T4, TSH #### [facility] [address] [place] [address] Dr. Juan Argueta IG % 0.2 % Normal 0.0-0.5 [facility] Comment on above: Performed By: #### C MP, T4, TSH #### [facility] [address] [place] [address] Dr. Juan Argueta LYMPH # 1.3 103/ul Normal 1.2-3.8 [facility] Comment on above: Performed By: #### C MP, T4, TSH #### [facility] [address] [place] [address] Dr. Juan Argueta Lymphocytes/100 WBC (Bld) 25.1 % Normal 20.5-60.0 [facility] Comment on above: Performed By: #### C MP, T4, TSH #### [facility] [address] [place] [address] Dr. Juan Argueta MANUAL DIFF REQ NO Normal [facility] Comment on above: Performed By: #### C MP, T4, TSH #### [facility] [address] [place] [address] Dr. Juan Argueta MCH (RBC) [Entitic mass] 28.3 pg Normal 25.9-34.0 [facility] Comment on above: Performed By: #### C MP, T4, TSH #### [facility] [address] [place] [address] Dr. Juan Argueta MCHC (RBC) [Mass/Vol] 33.9 g/dL Normal 29.9-35.2 [facility] Comment on above: Performed By: #### C MP, T4, TSH #### [facility] [address] [place] [address] Dr. Juan Argueta MCV (RBC) [Entitic vol] 83.3 fL Normal 80.0-94.0 [facility] Comment on above: Performed By: #### C MP, T4, TSH #### [facility] [address] [place] [address] Dr. Juan Argueta MONO # 0.3 103/ul Normal 0.3-0.8 [facility] Comment on above: Performed By: #### C MP, T4, TSH #### [facility] [address] [place] [address] Dr. Juan Argueta Monocytes/100 WBC (Bld) 5.9 % Normal 1.7-12.0 [facility] Comment on above: Performed By: #### C MP, T4, TSH #### [facility] [address] [place] [address] Dr. Juan Argueta NEUT # 3.3 103/ul Normal 1.4-6.5 [facility] Comment on above: Performed By: #### C MP, T4, TSH #### [facility] [address] [place] [address] Dr. Juan Argueta Neutrophils/100 WBC (Bld) 65.4 % Normal 43.0-75.0 [facility] Comment on above: Performed By: #### C MP, T4, TSH #### [facility] [address] [place] [address] Dr. Juan Argueta Platelet mean volume (Bld) [Entitic vol] 9.5 fL Normal 9.5-13.5 [facility] Comment on above: Performed By: #### C MP, T4, TSH #### [facility] [address] [place] [address] Dr. Juan Argueta PLT 244 103/ul Normal 150-450 [facility] Comment on above: Performed By: #### C MP, T4, TSH #### [facility] [address] [address] [address] Juan Argueta RBC 5.45 106/ul Normal 4.70-6.10 [facility] Comment on above: Performed By: #### C MP, T4, TSH #### [facility] [address] [address] [address] Juan Argueta WBC 5.1 103/ul Normal 4.0-11.0 [facility] Comment on above: Performed By: #### C MP, T4, TSH #### [facility] [address] [address] [address] Juan Argueta GLYCOHEMOGLOBIN A1Con 2022 ADA RECOMMENDATION SEE BELOW Normal [facility] Comment on above: Result Comment: ADA RECOMMENDED LIMIT 4.0 - 6.0 ADA THERAPEUTIC TARGET < 7.0 ACTION SUGGESTED > 7.0 Performed By: #### C MP, T4, TSH #### [facility] [address] [address] [address] Juan Argueta Glucose [Mass/Vol] 100 mg/dL Normal [facility] Comment on above: Performed By: #### C MP, T4, TSH #### [facility] [address] [address] [address] Juan Argueta HbA1c (Bld) [Mass fraction] 5.1 % Normal 4.5-6.2 [facility] Comment on above: Performed By: #### C MP, T4, TSH #### [facility] [address] [address] [address] Juan Argueta PROF 14(COMP METB)on 023 Albumin [Mass/Vol] 4.2 g/dL Normal 3.4-5.0 [facility] Comment on above: Performed By: #### C MP, T4, TSH #### [facility] [address] [place] [address] Dr. Juan Argueta Albumin/Globulin [Mass ratio] 1.0 {ratio} Normal [facility] Comment on above: Performed By: #### C MP, T4, TSH #### [facility] [address] [address] [address] Juan Argueta ALP [Catalytic activity/Vol] 152 U/L Critically high 46-116 [facility] Comment on above: Performed By: #### C MP, T4, TSH #### [facility] [address] [address] [address] Juan Argueta ALT [Catalytic activity/Vol] 34 U/L Normal 16-63 [facility] Comment on above: Performed By: #### C MP, T4, TSH #### [facility] [address] [address] [address] Juan Argueta Anion gap [Moles/Vol] 12.0 mmol/L Normal [facility] Comment on above: Performed By: #### C MP, T4, TSH #### [facility] [address] [address] [address] Juan Argueta AST [Catalytic activity/Vol] 31 U/L Normal 15-37 [facility] Comment on above: Performed By: #### C MP, T4, TSH #### [facility] [address] [address] [address] Juan Argueta Bilirubin [Mass/Vol] 0.2 mg/dL Normal 0.2-1.0 [facility] Comment on above: Performed By: #### C MP, T4, TSH #### [facility] [address] [address] [address] Juan Argueta Calcium [Mass/Vol] 9.4 mg/dL Normal 8.5-10.1 [facility] Comment on above: Performed By: #### C MP, T4, TSH #### [facility] [address] [address] [address] Juan Argueta Chloride [Moles/Vol] 104 mmol/L Normal 98-107 [facility] Comment on above: Performed By: #### C MP, T4, TSH #### [facility] [address] [address] [address] Juan Argueta CO2 [Moles/Vol] 26.5 mmol/L Normal 21.0-32.0 [facility] Comment on above: Performed By: #### C MP, T4, TSH #### [facility] [address] [address] [address] Juan Argueta Creatinine [Mass/Vol] 1.60 mg/dL Critically high 0.70-1.30 [facility] Comment on above: Performed By: #### C MP, T4, TSH #### [facility] [address] [address] [address] Juan Argueta EGFR-AF CAMBODIAN >60 Normal >=60 [facility] Comment on above: Performed By: #### C MP, T4, TSH #### [facility] [address] [address] [address] Juan Argueta EGFR-NON AF CAMBODIAN 51 mL/min/1.73m2 Critically low >=60 [facility] Comment on above: Performed By: #### C MP, T4, TSH #### [facility] [address] [address] [address] Juan Argueta Globulin (S) [Mass/Vol] 4.1 g/dL Normal [facility] Comment on above: Performed By: #### C MP, T4, TSH #### [facility] [address] [address] [address] Juan Argueta Glucose [Mass/Vol] 95 mg/dL Normal 74-106 [facility] Comment on above: Performed By: #### C MP, T4, TSH #### [facility] [address] [address] [address] Juan Argueta Potassium [Moles/Vol] 4.5 mmol/L Normal 3.5-5.1 [facility] Comment on above: Performed By: #### C MP, T4, TSH #### [facility] [address] [address] [address] Juan Argueta Protein [Mass/Vol] 8.3 g/dL Critically high 6.4-8.2 T [facility] Comment on above: Performed By: #### C MP, T4, TSH #### [facility] [address] [address] [address] Juan Argueta Sodium [Moles/Vol] 138 mmol/L Normal 136-145 [facility] Comment on above: Performed By: #### C MP, T4, TSH #### [facility] [address] [address] [address] Juna Argueta Urea nitrogen [Mass/Vol] 22.0 mg/dL Critically high 7.0-18.0 [facility] Comment on above: Performed By: #### C MP, T4, TSH #### [facility] [address] [address] [address] Juan Argueta Urea nitrogen/Creatinine [Mass ratio] 13.8 mg/mg Normal [facility] Comment on above: Performed By: #### C MP, T4, TSH #### [facility] [address] [place] [address] Dr. Juan Argueta T4on 01-18-2023 T4 [Mass/Vol] 3.20 ug/dL Critically low 4.50-12.10 [facility] Comment on above: Performed By: #### C MP, T4, TSH #### [facility] [address] [place] [address] Dr. Juan Argueta TSHon 01-18-2023 TSH 2.037 uIU/mL Normal 0.358-3.740 [facility] Comment on above: Performed By: #### C MP, T4, TSH #### [facility] [address] [place] [address] Dr. Juan Argueta US THYROIDon 01-04-2023 US [...] by: LUIS FERMIN Date: 2023-01-04 15:52 Normal [facility] OSMOLALITYon 10-06-2022 Osmolality [Osmolality] 307 mosm/kg Critically high 275-295 [facility] Comment on above: Performed By: #### C MP, T4, TSH #### [facility] [address] [address] [address] Juan Argueta T3, TOTAL (TRIIODOTHYRONINE) on 10-05-2022 T3, TOTAL 52 ng/dL Critically low 71-180 [facility] Comment on above: Performed By: #### C MP, T4, TSH #### [facility] [address] [address] [address] Juan Argueta GLYCOHEMOGLOBIN A1Con 2021 ADA RECOMMENDATION SEE BELOW Normal [facility] Comment on above: Result Comment: ADA RECOMMENDED LIMIT 4.0 - 6.0 ADA THERAPEUTIC TARGET < 7.0 ACTION SUGGESTED > 7.0 Performed By: #### C MP, T4, TSH #### [facility] [address] [place] [address] Dr. Juan Argueta Glucose [Mass/Vol] 105 mg/dL Normal [facility] Comment on above: Performed By: #### C MP, T4, TSH #### [facility] [address] [place] [address] Dr. Juan Argueta HbA1c (Bld) [Mass fraction] 5.3 % Normal 4.5-6.2 [facility] Comment on above: Performed By: #### C MP, T4, TSH #### [facility] [address] [place] [address] Dr. Juan Argueta PROF 14(COMP METB)on 022 Albumin [Mass/Vol] 4.2 g/dL Normal 3.4-5.0 [facility] Comment on above: Performed By: #### T SH, CMP #### [facility] [address] [place] [address] Dr. Juan Argueta Albumin/Globulin [Mass ratio] 1.1 {ratio} Normal [facility] Comment on above: Performed By: #### T SH, CMP #### [facility] [address] [place] [address] Dr. Juan Argueta ALP [Catalytic activity/Vol] 122 U/L Critically high 46-116 [facility] Comment on above: Performed By: #### T SH, CMP #### [facility] [address] [address] [address] Juan Argueta ALT [Catalytic activity/Vol] 53 U/L Normal 16-63 [facility] Comment on above: Performed By: #### T SH, CMP #### [facility] [address] [address] [address] Juan Argueta Anion gap [Moles/Vol] 12.4 mmol/L Normal [facility] Comment on above: Performed By: #### T SH, CMP #### [facility] [address] [address] [address] Juan Argueta AST [Catalytic activity/Vol] 22 U/L Normal 15-37 [facility] Comment on above: Performed By: #### T SH, CMP #### [facility] [address] [place] [address] Dr. Juan Argueta Bilirubin [Mass/Vol] 0.2 mg/dL Normal 0.2-1.0 [facility] Comment on above: Performed By: #### T SH, CMP #### [facility] [address] [address] [address] Juan Argueta Calcium [Mass/Vol] 9.6 mg/dL Normal 8.5-10.1 [facility] Comment on above: Performed By: #### T SH, CMP #### [facility] [address] [place] [address] Dr. Juan Argueta Chloride [Moles/Vol] 108 mmol/L Critically high 98-107 [facility] Comment on above: Performed By: #### T SH, CMP #### [facility] [address] [address] [address] Juan Argueta CO2 [Moles/Vol] 28.8 mmol/L Normal 21.0-32.0 [facility] Comment on above: Performed By: #### T SH, CMP #### [facility] [address] [address] [address] Juan Argueta Creatinine [Mass/Vol] 1.77 mg/dL Critically high 0.70-1.30 [facility] Comment on above: Performed By: #### T SH, CMP #### [facility] [address] [address] [address] Juan Argueta EGFR-AF CAMBODIAN 55 mL/min/1.73m2 Critically low >=60 [facility] Comment on above: Performed By: #### T SH, CMP #### [facility] [address] [address] [address] Juan Argueta EGFR-NON AF CAMBODIAN 45 mL/min/1.73m2 Critically low >=60 [facility] Comment on above: Performed By: #### T SH, CMP #### [facility] [address] [address] [address] Juan Argueta Globulin (S) [Mass/Vol] 3.7 g/dL Normal [facility] Comment on above: Performed By: #### T SH, CMP #### [facility] [address] [address] [address] Juna Argueta Glucose [Mass/Vol] 94 mg/dL Normal 74-106 [facility] Comment on above: Performed By: #### T SH, CMP #### [facility] [address] [address] [address] Juan Argueta Potassium [Moles/Vol] 4.2 mmol/L Normal 3.5-5.1 [facility] Comment on above: Performed By: #### T SH, CMP #### [facility] [address] [address] [address] Juan Argueta Protein [Mass/Vol] 7.9 g/dL Normal 6.4-8.2 [facility] Comment on above: Performed By: #### T SH, CMP #### [facility] [address] [address] [address] Juan Argueta Sodium [Moles/Vol] 145 mmol/L Normal 136-145 [facility] Comment on above: Performed By: #### T SH, CMP #### [facility] [address] [address] [address] Juan Argueta Urea nitrogen [Mass/Vol] 28.0 mg/dL Critically high 7.0-18.0 [facility] Comment on above: Performed By: #### T SH, CMP #### [facility] [address] [place] [address] Dr. Juan Argueta Urea nitrogen/Creatinine [Mass ratio] 15.8 mg/mg Normal [facility] Comment on above: Performed By: #### T SH, CMP #### [facility] [address] [place] [address] Dr. Juan Argueta TSHon 10-04-2022 TSH 1.456 uIU/mL Normal 0.358-3.740 [facility] Comment on above: Performed By: #### T SH, CMP #### [facility] [address] [place] [address] Dr. Juan Argueta VITAMIN D 25 OHon 10-04-2022 VIT D 25-OH 51.1 ng/mL Normal [facility] Comment on above: Performed By: #### C MP, T4, TSH #### [facility] [address] [place] [address] Dr. Juan Argueta VIT D RANGES SEE BELOW Normal [facility] Comment on above: Result Comment: <20 ng/mL Vit D deficient 20 - <30 ng/mL Vit D insufficient 30 - 100 ng/mL Vit D sufficient >100 ng/mL Potential Toxicity Performed By: #### C MP, T4, TSH #### [facility] [address] [place] [address] Dr. Juan Argueta Follow Up (Endocrinology)on 09-30-2022 [...] Services - Lab To Draw (Blood Test); Due:[id number];Ordered ; For:Hypocalcemia, Hypothyroidism, Low vitamin D level, Multinodular goiter; Ordered By:Erin Ogden; Osmolality, Serum; Status:Active; Requested for:30Sep2022; Perform:Lab Services - Lab To Draw (Blood Test); Due:[id number];Ordered ; For:Hypocalcemia, Hypothyroidism, Low vitamin D level, Multinodular goiter; Ordered By:Erin Ogden; Osmolality, Urine Spot; Status:Active; Requested for:30Sep2022; Perform:Lab Services - Lab To Draw (Non-Blood Test); Due:[id number];Ordered ; For:Hypocalcemia, Hypothyroidism, Low vitamin D level, Multinodular goiter; Ordered By:Erin Ogden; TSH WITH REFLEX TO FREE T4 IF ABNORMAL; Status:Active; Requested for:30Sep2022; Perform:Lab Services - Lab To Draw (Blood Test); Due:[id number];Ordered ; For:Hypocalcemia, Hypothyroidism, Low vitamin D level, Multinodular goiter; Ordered By:Erin Ogden; Ultrasound Thyroid; Status:Hold For - Scheduling; Requested for:30Sep2022; Perform: Radiology Services Imaging; Due:[id number];Ordered ; For:Hypocalcemia, Hypothyroidism, Low vitamin D level, Multinodular goiter; Ordered By:Erin Ogdne; Radiologist to Determine Optimal Study : Y What are the patient's signs and symptoms? : f/u Vitamin D 25-Hydroxy; Status:Active; Requested for:30Sep2022; Perform:Lab Services - Lab To Draw (Blood Test); Due:[id number];Ordered ; For:Hypocalcemia, Hypothyroidism, Low vitamin D level, [...] low vitamin d levels. History of Present Evndcuv89 yo male with severe mental retardation, autism, bipolar disorder,severe psychosis,GERD, HTN , hypercalcemia [facility] 12/15 [facility] with exacerbation by lithium intake (that has [...] then eats a day after. not on Mucarabones 300 mg , did not changed since last visit as per sheet . guardian is brother Yogesh nb [phone] seeing GI , EGD was fine. no acute issues. is losing weight again , had a lip biopsy and infected ulcer is healed, weight loss has stopped, on Lt4 50 mcgq day and we need recent albs, slightly more agitated , had a fall with bruise on his face , [place] physician is following. no changes in neuro [...] 09-20-2022 BASO # 0.1 103/ul Normal 0.0-0.1 [facility] Comment on above: Performed By: #### C MP, T4, TSH #### [facility] [address] [place] [address] Dr. Juan Argueta Basophils/100 WBC (Bld) 1.2 % Normal 0.2-2.0 [facility] Comment on above: Performed By: #### C MP, T4, TSH #### [facility] [address] [place] [address] Dr. Juan Argueta EO # 0.2 103/ul Normal 0.0-0.7 [facility] Comment on above: Performed By: #### C MP, T4, TSH #### [facility] [address] [place] [address] Dr. Juan Argueta Eosinophils/100 WBC (Bld) 5.0 % Normal 0.9-7.0 [facility] Comment on above: Performed By: #### C MP, T4, TSH #### [facility] [address] [place] [address] Dr. Juan Argueta Erythrocyte distribution width (RBC) [Ratio] 12.8 % Normal 11.0-15.0 [facility] Comment on above: Performed By: #### C MP, T4, TSH #### [facility] [address] [place] [address] Dr. Juan Argueta Hematocrit (Bld) [Volume fraction] 42.0 % Normal 42.0-54.0 [facility] Comment on above: Performed By: #### C MP, T4, TSH #### [facility] [address] [place] [address] Dr. Juan Argueta Hemoglobin (Bld) [Mass/Vol] 14.0 g/dL Normal 14.0-18.0 [facility] Comment on above: Performed By: #### C MP, T4, TSH #### [facility] [address] [place] [address] Dr. Juan Argueta IG # 0.01 10e3/ul Normal 0.00-0.03 [facility] Comment on above: Performed By: #### C MP, T4, TSH #### [facility] [address] [address] [address] Juan Argueta IG % 0.2 % Normal 0.0-0.5 [facility] Comment on above: Performed By: #### C MP, T4, TSH #### [facility] [address] [place] [address] Dr. Juan Argueta LYMPH # 1.5 103/ul Normal 1.2-3.8 [facility] Comment on above: Performed By: #### C MP, T4, TSH #### [facility] [address] [place] [address] Dr. Juan Argueta Lymphocytes/100 WBC (Bld) 34.9 % Normal 20.5-60.0 [facility] Comment on above: Performed By: #### C MP, T4, TSH #### [facility] [address] [place] [address] Dr. Juan Argueta MANUAL DIFF REQ NO Normal [facility] Comment on above: Performed By: #### C MP, T4, TSH #### [facility] [address] [place] [address] Dr. Juan Argueta MCH (RBC) [Entitic mass] 29.0 pg Normal 25.9-34.0 [facility] Comment on above: Performed By: #### C MP, T4, TSH #### [facility] [address] [place] [address] Dr. Juan Argueta MCHC (RBC) [Mass/Vol] 33.3 g/dL Normal 29.9-35.2 [facility] Comment on above: Performed By: #### C MP, T4, TSH #### [facility] [address] [place] [address] Dr. Juan Argueta MCV (RBC) [Entitic vol] 87.0 fL Normal 80.0-94.0 [facility] Comment on above: Performed By: #### C MP, T4, TSH #### [facility] [address] [place] [address] Dr. Juan Argueta MONO # 0.3 103/ul Normal 0.3-0.8 [facility] Comment on above: Performed By: #### C MP, T4, TSH #### [facility] [address] [place] [address] Dr. Juan Argueta Monocytes/100 WBC (Bld) 6.8 % Normal 1.7-12.0 [facility] Comment on above: Performed By: #### C MP, T4, TSH #### [facility] [address] [place] [address] Dr. Juan Argueta NEUT # 2.2 103/ul Normal 1.4-6.5 [facility] Comment on above: Performed By: #### C MP, T4, TSH #### [facility] [address] [place] [address] Dr. Juan Argueta Neutrophils/100 WBC (Bld) 51.9 % Normal 43.0-75.0 [facility] Comment on above: Performed By: #### C MP, T4, TSH #### [facility] [address] [place] [address] Dr. Juan Argueta Platelet mean volume (Bld) [Entitic vol] 10.1 fL Normal 9.5-13.5 [facility] Comment on above: Performed By: #### C MP, T4, TSH #### [facility] [address] [place] [address] Dr. Juan Argueta PLT 252 103/ul Normal 150-450 [facility] Comment on above: Performed By: #### C MP, T4, TSH #### [facility] [address] [place] [address] Dr. Juan Argueta RBC 4.83 106/ul Normal 4.70-6.10 [facility] Comment on above: Performed By: #### C MP, T4, TSH #### [facility] [address] [place] [address] Dr. Juan Argueta WBC 4.2 103/ul Normal 4.0-11.0 [facility] Comment on above: Performed By: #### C MP, T4, TSH #### [facility] [address] [place] [address] Dr. Juan Argueta FREE T4on 09-20-2022 Free T4 [Mass/Vol] 0.50 ng/dL Critically low 0.76-1.46 Th [facility] Comment on above: Performed By: #### B 12FOL, FT4 #### [facility] [address] [place] [address] Dr. Juan Argueta PROF 14(COMP METB)on 022 Albumin [Mass/Vol] 4.1 g/dL Normal 3.4-5.0 [facility] Comment on above: Performed By: #### C MP, T4, TSH #### [facility] [address] [place] [address] Dr. Juan Argueta Albumin/Globulin [Mass ratio] 1.1 {ratio} Normal [facility] Comment on above: Performed By: #### C MP, T4, TSH #### [facility] [address] [place] [address] Dr. Juan Argueta ALP [Catalytic activity/Vol] 107 U/L Normal 46-116 [facility] Comment on above: Performed By: #### C MP, T4, TSH #### [facility] [address] [place] [address] Dr. Juan Argueta ALT [Catalytic activity/Vol] 79 U/L Critically high 16-63 [facility] Comment on above: Performed By: #### C MP, T4, TSH #### [facility] [address] [place] [address] Dr. Juan Argueta Anion gap [Moles/Vol] 8.4 mmol/L Normal [facility] Comment on above: Performed By: #### C MP, T4, TSH #### [facility] [address] [place] [address] Dr. Juan Argueta AST [Catalytic activity/Vol] 32 U/L Normal 15-37 [facility] Comment on above: Performed By: #### C MP, T4, TSH #### [facility] [address] [address] [address] Juan Argueta Bilirubin [Mass/Vol] 0.2 mg/dL Normal 0.2-1.0 [facility] Comment on above: Performed By: #### C MP, T4, TSH #### [facility] [address] [place] [address] Dr. Juan Argueta Calcium [Mass/Vol] 9.2 mg/dL Normal 8.5-10.1 [facility] Comment on above: Performed By: #### C MP, T4, TSH #### [facility] [address] [place] [address] Dr. Juan Argueta Chloride [Moles/Vol] 104 mmol/L Normal 98-107 [facility] Comment on above: Performed By: #### C MP, T4, TSH #### [facility] [address] [place] [address] Dr. Juan Argueta CO2 [Moles/Vol] 30.2 mmol/L Normal 21.0-32.0 [facility] Comment on above: Performed By: #### C MP, T4, TSH #### [facility] [address] [place] [address] Dr. Juan Argueta Creatinine [Mass/Vol] 1.67 mg/dL Critically high 0.70-1.30 [facility] Comment on above: Performed By: #### C MP, T4, TSH #### [facility] [address] [place] [address] Dr. Juan Argueta EGFR-AF CAMBODIAN 58 mL/min/1.73m2 Critically low >=60 [facility] Comment on above: Performed By: #### C MP, T4, TSH #### [facility] [address] [place] [address] Dr. Juan Argueta EGFR-NON AF CAMBODIAN 48 mL/min/1.73m2 Critically low >=60 [facility] Comment on above: Performed By: #### C MP, T4, TSH #### [facility] [address] [address] [address] Juan Argueta Globulin (S) [Mass/Vol] 3.6 g/dL Normal [facility] Comment on above: Performed By: #### C MP, T4, TSH #### [facility] [address] [address] [address] Juan Argueta Glucose [Mass/Vol] 94 mg/dL Normal 74-106 [facility] Comment on above: Performed By: #### C MP, T4, TSH #### [facility] [address] [place] [address] Dr. Juan Argueta Potassium [Moles/Vol] 4.6 mmol/L Normal 3.5-5.1 [facility] Comment on above: Performed By: #### C MP, T4, TSH #### [facility] [address] [place] [address] Dr. Juan Argueta Protein [Mass/Vol] 7.7 g/dL Normal 6.4-8.2 [facility] Comment on above: Performed By: #### C MP, T4, TSH #### [facility] [address] [place] [address] Dr. Juan Argueta Sodium [Moles/Vol] 138 mmol/L Normal 136-145 [facility] Comment on above: Performed By: #### C MP, T4, TSH #### [facility] [address] [place] [address] Dr. Juan Argueta Urea nitrogen [Mass/Vol] 28.0 mg/dL Critically high 7.0-18.0 [facility] Comment on above: Performed By: #### C MP, T4, TSH #### [facility] [address] [place] [address] Dr. Juan Argueta Urea nitrogen/Creatinine [Mass ratio] 16.8 mg/mg Normal [facility] Comment on above: Performed By: #### C MP, T4, TSH #### [facility] [address] [place] [address] Dr. Juan Argueta TSHon 09-20-2022 TSH 1.895 uIU/mL Normal 0.358-3.740 [facility] Comment on above: Performed By: #### C MP, T4, TSH #### [facility] [address] [place] [address] Dr. Juan Argueta VIT B12 AND FOLATEon 022 Cobalamin (Vitamin B12) [Mass/Vol] 350.0 pg/mL Normal 193.0-986.0 [facility] Comment on above: Performed By: #### B 12FOL, FT4 #### [facility] [address] [place] [address] Dr. Juan Argueta FOLATE 16.40 ng/mL Normal 8.60-58.90 [facility] Comment on above: Performed By: #### B 12FOL, FT4 #### [facility] [address] [place] [address] Dr. Juan Argueta VITAMIN D 25 OHon 09-20-2022 VIT D 25-OH 49.9 ng/mL Normal [facility] Comment on above: Performed By: #### V ITAD #### [facility] [address] [place] [address] Dr. Juan Argueta VIT D RANGES SEE BELOW Normal [facility] Comment on above: Result Comment: <20 ng/mL Vit D deficient 20 - <30 ng/mL Vit D insufficient 30 - 100 ng/mL Vit D sufficient >100 ng/mL Potential Toxicity Performed By: #### V ITAD #### [facility] [address] [place] [address] Dr. Juan Argueta CBC AUTO DIFFon 09-10-2022 BASO # 0.0 103/ul Normal 0.0-0.1 [facility] Comment on above: Performed By: #### C BC #### [facility] [address] [place] [address] Dr. Juan Argueta Basophils/100 WBC (Bld) 0.3 % Normal 0.2-2.0 [facility] Comment on above: Performed By: #### C BC #### [facility] [address] [place] [address] Dr. Juan Argueta EO # 0.1 103/ul Normal 0.0-0.7 [facility] Comment on above: Performed By: #### C BC #### [facility] [address] [place] [address] Dr. Juan Argueta Eosinophils/100 WBC (Bld) 1.5 % Normal 0.9-7.0 [facility] Comment on above: Performed By: #### C BC #### [facility] [address] [place] [address] Dr. Juan Argueta Erythrocyte distribution width (RBC) [Ratio] 12.8 % Normal 11.0-15.0 [facility] Comment on above: Performed By: #### C BC #### [facility] [address] [place] [address] Dr. Juan Argueta Hematocrit (Bld) [Volume fraction] 38.6 % Critically low 42.0-54.0 [facility] Comment on above: Performed By: #### C BC #### [facility] [address] [place] [address] Dr. Juan Argueta Hemoglobin (Bld) [Mass/Vol] 13.2 g/dL Critically low 14.0-18.0 [facility] Comment on above: Performed By: #### C BC #### [facility] [address] [place] [address] Dr. Juan Argueta IG # 0.02 10e3/ul Normal 0.00-0.03 [facility] Comment on above: Performed By: #### C BC #### [facility] [address] [place] [address] Dr. Juan Argueta IG % 0.2 % Normal 0.0-0.5 [facility] Comment on above: Performed By: #### C BC #### [facility] [address] [place] [address] Dr. Juan Argueta LYMPH # 0.9 103/ul Critically low 1.2-3.8 [facility] Comment on above: Performed By: #### C BC #### [facility] [address] [place] [address] Dr. Juan Argueta Lymphocytes/100 WBC (Bld) 10.0 % Critically low 20.5-60.0 [facility] Comment on above: Performed By: #### C BC #### [facility] [address] [place] [address] Dr. Juan Argueta MANUAL DIFF REQ NO Normal [facility] Comment on above: Performed By: #### C BC #### [facility] [address] [place] [address] Dr. Juan Argueta MCH (RBC) [Entitic mass] 29.2 pg Normal 25.9-34.0 [facility] Comment on above: Performed By: #### C BC #### [facility] [address] [place] [address] Dr. Juan Argueta MCHC (RBC) [Mass/Vol] 34.2 g/dL Normal 29.9-35.2 [facility] Comment on above: Performed By: #### C BC #### [facility] [address] [place] [address] Dr. Juan Argueta MCV (RBC) [Entitic vol] 85.4 fL Normal 80.0-94.0 [facility] Comment on above: Performed By: #### C BC #### [facility] [address] [place] [address] Dr. Juan Argueta MONO # 0.5 103/ul Normal 0.3-0.8 [facility] Comment on above: Performed By: #### C BC #### [facility] [address] [place] [address] Dr. Juan Argueta Monocytes/100 WBC (Bld) 5.3 % Normal 1.7-12.0 [facility] Comment on above: Performed By: #### C BC #### [facility] [address] [place] [address] Dr. Juan Argueta NEUT # 7.4 103/ul Critically high 1.4-6.5 [facility] Comment on above: Performed By: #### C BC #### [facility] [address] [place] [address] Dr. uJan Argueta Neutrophils/100 WBC (Bld) 82.7 % Critically high 43.0-75.0 [facility] Comment on above: Performed By: #### C BC #### [facility] [address] [place], [place] [address] Dr. Juan Argueta Platelet mean volume (Bld) [Entitic vol] 9.8 fL Normal 9.5-13.5 [facility] Comment on above: Performed By: #### C BC #### [facility] [id number] Juan Argueta PLT 226 103/ul Normal 150-450 [facility] Comment on above: Performed By: #### C BC #### [facility] [address] [address] [address] Juan Argueta RBC 4.52 106/ul Critically low 4.70-6.10 [facility] Comment on above: Performed By: #### C BC #### [facility] [address] [address] [address] Juan Argueta WBC 8.9 103/ul Normal 4.0-11.0 [facility] Comment on above: Performed By: #### C BC #### [facility] [address], [place] [address] HEAD WO CONon [...] JON PARKS Date: 2022-09-10 12:09 Normal [facility] PROF 14(COMP METB)on 09-10- 022 Albumin [Mass/Vol] 4.1 g/dL Normal 3.4-5.0 [facility] Comment on above: Performed By: #### C MP #### [facility] [address] [place] [address] Dr. Juan Argueta Albumin/Globulin [Mass ratio] 1.2 {ratio} Normal [facility] Comment on above: Performed By: #### C MP #### [facility] [address] [place] [address] Dr. Juan Argueta ALP [Catalytic activity/Vol] 100 U/L Normal 46-116 [facility] Comment on above: Performed By: #### C MP #### [facility] [address] [place] [address] Dr. Juan Argueta ALT [Catalytic activity/Vol] 39 U/L Normal 16-63 [facility] Comment on above: Performed By: #### C MP #### [facility] [address] [place] [address] Dr. Juan Argueta Anion gap [Moles/Vol] 16.5 mmol/L Normal [facility] Comment on above: Performed By: #### C MP #### [facility] [address] [place] [address] Dr. Juan Argueta AST [Catalytic activity/Vol] 35 U/L Normal 15-37 [facility] Comment on above: Performed By: #### C MP #### [facility] [address] [place] [address] Dr. Juan Argueta Bilirubin [Mass/Vol] 0.3 mg/dL Normal 0.2-1.0 [facility] Comment on above: Performed By: #### C MP #### [facility] [address] [place] [address] Dr. Juan Argueta Calcium [Mass/Vol] 8.2 mg/dL Critically low 8.5-10.1 [facility] Comment on above: Performed By: #### C MP #### [facility] [address] [place] [address] Dr. Juan Argueta Chloride [Moles/Vol] 101 mmol/L Normal 98-107 [facility] Comment on above: Performed By: #### C MP #### [facility] [address] [address] [address] Juan Argueta CO2 [Moles/Vol] 18.8 mmol/L Critically low 21.0-32.0 [facility] Comment on above: Performed By: #### C MP #### [facility] [address] [address] [address] Juan Argueta Creatinine [Mass/Vol] 1.37 mg/dL Critically high 0.70-1.30 [facility] Comment on above: Performed By: #### C MP #### [facility] [address] [address] [address] Juan Argueta EGFR-AF CAMBODIAN >60 Normal >=60 [facility] Comment on above: Performed By: #### C MP #### [facility] [address] [place] [address] Dr. Juan Argueta EGFR-NON AF CAMBODIAN >60 Normal >=60 [facility] Comment on above: Performed By: #### C MP #### [facility] [address] [place] [address] Dr. Juan Argueta Globulin (S) [Mass/Vol] 3.3 g/dL Normal [facility] Comment on above: Performed By: #### C MP #### [facility] [address] [address] [address] Juan Argueta Glucose [Mass/Vol] 103 mg/dL Normal 74-106 [facility] Comment on above: Performed By: #### C MP #### [facility] [address] [place] [address] Dr. Juan Argueta Potassium [Moles/Vol] 4.3 mmol/L Normal 3.5-5.1 [facility] Comment on above: Performed By: #### C MP #### [facility] [address] [place] [address] Dr. Juan Argueta Protein [Mass/Vol] 7.4 g/dL Normal 6.4-8.2 [facility] Comment on above: Performed By: #### C MP #### [facility] [address] [place], [place] [address] Dr. Juan Argueta Sodium [Moles/Vol] 132 mmol/L Critically low 136-145 [facility] Comment on above: Performed By: #### C MP #### [facility] [id number] Juan Argueta Urea nitrogen [Mass/Vol] 23.0 mg/dL Critically high 7.0-18.0 [facility] Comment on above: Performed By: #### C MP #### [facility] [address] [place], [place] [address] Dr. Juan Argueta Urea nitrogen/Creatinine [Mass ratio] 16.8 mg/mg Normal [facility] Comment on above: Performed By: #### C MP #### [facility] [id number] Juan Argueta [address] HEAD WO CONon [...] RISA PENNY Date: 2022-07-19 10:21 Normal [facility] Follow Up (Endocrinology)on 03-25-2022 Follow Up [...] Services - Lab To Draw (Blood Test); Due:[id number];Ordered ; For:Hypothyroidism, Low vitamin D level; Ordered By:Erin Ogden; TSH - Thyroid Stimulating Hormone, Serum; Status:Active; Requested for:[id number]; Perform:Lab Services - Lab To Draw (Blood Test); Due:[id number];Ordered ; For:Hypothyroidism, Low vitamin D level; Ordered [...] visit hypothyrpidism and hypercalcemia History of Present [age]irfvb23 yo male with severe mental retardation, autism, [...] then eats a day after. not on Mucarabones 300 mg , did not changed since last visit as per sheet . guardian is brother Yogesh nb [phone] seeing GI , EGD was fine. no acute issues. is losing weight again , had a lip biopsy and infected ulcer is healed, weight loss has stopped, on Lt4 50 mcgq day and we need recent albs, slightly more agitated , had a fall with bruise on his face , [place] physician is following. no changes in neuro exam. TSH was normal on labs , , calcium and sodium normal, no acute issues (more content not included)... Normal [facility] XR MODIFIED BARIUM SWALLOWon 09-11-2020 No radiographic evidence of tracheal aspiration. For further information as well as dietary recommendations, please refer to the speech pathologist's detailed report. [employer] Workstation ID: [id number] [facility] EXAMINATION: XR MODIFIED BARIUM SWALLOW HISTORY: [...] no evidence of penetration or tracheal aspiration. [facility] Interface, Rad In [employer] Speechq - 09/11/2020 10:03 PM EDT EXAMINATION: [...] refer to the speech pathologist's detailed report. [employer] Workstation ID: [id number] [facility] XR MODIFIED BARIUM SWALLOW EXAMINATION: XR [...] refer to the speech pathologist's detailed report. [employer] Workstation ID: [id number] Dictated by: BRANDAN CERVANTES on MonSep 11, 2020 2:10:21 PM EDT Transcribed by: OBNIFACIO IBARRA on MonSep 11, 2020 2:53:24 PM EDT Finalized by: BRANDAN CERVANTES on MonSep 11, 2020 10:00:27 PM EDT Normal [facility] Comment on above: Order Comment: Miriam vieyra orders Injury/Trauma or Illness?:Illness/Other How long have you had these symptoms (acute/chronic)?:Chronic Reason for exam?:Pharyngeal dysphagia Type of Exam?:Ongoing Additional signs and symptoms?:Pharyngeal dysphagia Fluoro time in minutes:1.05 Fluoro dose in mGy?:36.08 COVID-19, MOLECULARon 2019 SARS-COV-2 (CEPHEID) Not Detected Normal Not Detected [facility] Comment on above: Result Comment: This [...] at the following links: For Healthcare Providers: https://www.fda.gov/media/835527/download For Patients: https://www.fda.gov/media/948631/download Performed By: #### L [id number] #### [facility] [address] Rustam Morillo M[address]. [phone] [address] ABDOMEN PELVIS W IV CONTR Vicky [...] Grabiel Aleman MD 08/09/19 Final result Normal [facility] Surgical Pathologyon 10-17-2 018 Surgical Pathology (NOTE) [id number] [facility] [address] [place], [place] [id number] SURGICAL PATHOLOGY REPORT Patient Name: MARKEL LI MR#: [id number] Specimen #[id number] Final Diagnosis SPECIMEN A : SMALL BOWEL, [...] loss; EGD biopsy; colonoscopy, hemorrhoids; formalin time: R=6320, C=1786 Source: A: Small bowel biopsies B: Gastric [...] examination confirms the final pathologic diagnosis. Normal [facility] Comment on above: Performed By: #### P PPES #### [facility] [address] [place], [place] [id number] Vital Signs Date Time Vital Sign Value Performing Clinician Angelyi mickey 05-15-2024 12:03-0400 Body height 185.4 cm Bree Whiting MD Work Phone: [facility] 05-15-2024 12:03-0400 Body mass index (BMI) [Ratio] 26.91 kg/m2 Bree Whiting MD Work Phone: [facility] 05-15-2024 12:03-0400 Body weight 92.53 kg Bree Whiting MD Work Phone: [facility] 05-15-2024 12:03-0400 Diastolic blood pressure 66 mm[Hg] Bree Whiting MD Work Phone: [facility] 05-15-2024 12:03-0400 Heart rate 61 /min Bree Whiting MD Work Phone: [facility] 05-15-2024 12:03-0400 Systolic blood pressure 102 mm[Hg] Bree Whiting MD Work Phone: [facility] 11-15-2023 10:44-0500 Body height 182.9 cm Bree Whiting MD Work Phone: [facility] 11-15-2023 10:44-0500 Body mass index (BMI) [Ratio] 27.67 kg/m2 Bree Whiting MD Work Phone: [facility] 11-15-2023 10:44-0500 Body weight 92.53 kg Bree Whiting MD Work Phone: [facility] 10-02-2023 15:17-0500 Body temperature 96.8 [degF] Tyrese Alexander DDS Work Phone: [facility] 10-02-2023 15:17-0500 Diastolic blood pressure 91 mm[Hg] Tyrese Alexander DDS Work Phone: [facility] 10-02-2023 15:17-0500 Heart rate 58 /min Tyrese Alexander DDS Work Phone: [facility] 10-02-2023 15:17-0500 Respiratory rate 22 /min Tyrese Alexander DDS Work Phone: [employer] 10-02-2023 15:17-0500 SaO2% (BldA) [Mass fraction] 100 % Tyrese Alexander DDS Work Phone: [employer] 10-02-2023 15:17-0500 Systolic blood pressure 141 mm[Hg] Tyrese Alexander DDS Work Phone: [employer] 10-02-2023 11:35-0500 Body height 177.8 cm Tyrese Alexander [employer] Work Phone: [employer] 10-02-2023 11:35-0500 Body mass index (BMI) [Ratio] 29.27 kg/m2 Tyrese Alexander [employer] Work Phone: [facility] 10-02-2023 11:35-0500 Body weight 92.53 kg Tyrese Alexander [employer] Work Phone: [employer] 09-15-2023 15:07-0400 Body height 179 cm Bola Claire MD Work Phone: [employer] 09-15-2023 15:07-0400 Body mass index (BMI) [Ratio] 28.97 kg/m2 Bola Claire MD Work Phone: [employer] 09-15-2023 15:07-0400 Body temperature 97.7 [degF] Bola Claire MD Work Phone: [employer] 09-15-2023 15:07-0400 Body weight 92.81 kg Bola Claire MD Work Phone: [employer] 09-15-2023 15:07-0400 Diastolic blood pressure 72 mm[Hg] Bola Claire MD Work Phone: [employer] 09-15-2023 15:07-0400 Heart rate 58 /min Bola Claire MD Work Phone: [facility] 09-15-2023 15:07-0400 Respiratory rate 32 /min Bola Claire MD Work Phone: [facility] 09-15-2023 15:07-0400 SaO2% (BldA) [Mass fraction] 99 % Bola Claire MD [facility] 09-15-2023 15:07-0400 Systolic blood pressure 112 mm[Hg] Bola Claire MD Work Phone: [facility] 03-20-2019 12:52-0400 BMI (Body Mass Index) 22.24 kg/m2 Erin Harveyhi OF-Afmeikvssbgqz-NUQ [place] [address] Work Phone: 03-20-2019 12:52-0400 Body weight 74.39 kg Erin Harveyhi UQ-Spbrzfazvkqtk-NTI [place] [address] Work Phone: 03-20-2019 12:52-0400 BP Diastolic 72 mm[Hg] Erin Harveyhi GC-Srvrvbfcrwary-ZPG [place] [address] Work Phone: 03-20-2019 12:52-0400 BP Systolic 103 mm[Hg] Erin Harveyhi HQ-Qpqoxejllpenl-SVD [place] [address] Work Phone: 03-20-2019 12:52-0400 BSA (Body Surface Area) 1.96 m2 Erin Harveyhi KV-Asgktjppsiikj-LFN [place] [address] Work Phone: 03-20-2019 12:52-0400 Height 182.88 cm Erin Harveyhi ZT-Vvnhigkrnyjcj-XZJ [place] [address] Work Phone: 03-20-2019 12:52-0400 Pulse (Heart Rate) 62 /min Erin Harveyhi ZG-Toedvzfqxxpmi-AHB [place] [address] Work Phone: 03-20-2019 12:52-0400 Pulse Oximetry 100 % Erin Harveyhi VW-Jsunitbpzoenu-RXL [place] [address] Work Phone: 03-20-2019 12:52-0400 Respiratory Rate 14 /min Erin Pan EJ-Kahfvyxpujbmb-QBL [employer] [address] Work Phone: Encounters Encounter Date Encounter Type Care Provider Facility Start: 11-15-2024 End: 11-15-2024 ambulatory [facility] Start: 05-15-2024 End: 05-15-2024 ambulatory [facility] Start: 05-15-2024 End: 05-15-2024 Office outpatient visit 15 minutes Bree Whiting MD Work Phone: [facility] [place] Comment on above: Hypothyroidism, unsp ecified type (Primary Dx); History of hypercalcemia; Thyroid nodule; Hyperparathyroidism (Multi) Start: 12-15-2023 End: 12-16-2023 ambulatory [place] EPPS [place] Start: 11-15-2023 End: 11-15-2023 Office outpatient visit 25 minutes Bree Whiting MD Work Phone: [facility] [place] Comment on above: Hypercalcemia (Prima ry Dx); Hypothyroidism, unspecified type Start: 10-02-2023 End: 10-02-2023 ambulatory TYRESE ALEXANDER Facility:[facility] Start: 10-02-2023 End: 10-02-2023 Subsequent hospital visit by physician Tyrese Alexander DDS Work Phone: [facility] Start: 10-02-2023 End: 10-03-2023 ambulatory UNKNOWN PROVIDER Facility:[facility] Start: 10-02-2023 End: 10-03-2023 Patient encounter procedure Tyrese Alexander DDS Work Phone: [facility] Start: 09-27-2023 Telephone encounter Cheri mercado RN [facility] Pre Surgical Evaluation Start: 09-19-2023 Telephone encounter Lina rubin RN [facility] Pre Surgical Evaluation Comment on above: Pre-surgical Evaluat ion (Informed Consent & Anesthesia consent obtained) Start: 09-15-2023 Encounter for other preprocedural examination UNKNOWN PROVIDER [facility] Start: 09-15-2023 End: 09-15-2023 ambulatory UNKNOWN PROVIDER Facility:[facility] Start: 09-15-2023 End: 09-15-2023 Patient encounter procedure Pse Anesthesia [facility] Pre Surgical Evaluation Comment on above: Pre-op evaluation (P rimary Dx) Start: 09-15-2023 Admission to [facility] Ramu Jernigan DDS Work Phone: [facility] Start: 09-15-2023 End: 09-15-2023 Office outpatient visit 25 minutes Bola Claire MD Work Phone: [facility] Comment on above: Pre-op exam (Primary Dx); Body mass index (BMI) 28.0-28.9, adult Start: 09-15-2023 End: 09-15-2023 Preprocedural examination done Bola Claire MD Work Phone: [facility] Work Phone: Start: 08-18-2023 Admission to [facility] Carline Mcfarland DDS Work Phone: [facility] Start: 03-14-2023 ambulatory Erin Pan Facility:[id number] Start: 01-18-2023 End: 01-19-[address] [facility]ALEIGH EPPS Facility:[facility] Start: 01-04-2023 End: 01-05-[address] RALEIGH EPPS Facility:[facility] Start: 10-04-2022 End: 10-05-[address] DOCTOR MULLER Facility:[facility] Start: 09-30-2022 Office outpatient vi sit 15 minutes Sai Batres Work Phone: [employer] Work Phone: Start: 09-30-2022 ambulatory Erin Pan Facility:[id number] Start: 09-20-2022 End: 09-21-[address] RALEIGH EPPS Facility:[facility] Start: 09-10-2022 End: 09-10-[address] WES HUGO . Facility:[facility] Start: 07-19-2022 End: 07-19-[address] RALEIGH EPPS Facility:[facility] Start: 03-25-2022 ambulatory Erin Pan Facility:[id number] Start: 03-16-2022 End: 03-21-2022 Patient encounter procedure Viry Gordoncirillo [facility] Work Phone: [facility] Start: 03-07-2022 End: 03-07-2022 ambulatory JAYDE ENRIQUE . Facility:[facility] Start: 09-11-2020 End: 09-12-2020 Patient encounter procedure [facility] Start: 09-11-2020 End: 09-11-2020 Subsequent hospital visit by physician Raleigh Epps Work Phone: [facility] Comment on above: Pharyngeal dysphagia Start: 09-07-2020 End: 09-07-2020 Patient encounter procedure [facility] EPPS [facility] Start: 08-09-2019 End: 08-12-2019 Patient encounter procedure [facility] Start: 03-20-2019 Patient encounter procedure Erin Wall Nematollahi BH-Gfksgevdcjwkp-IBQ [place] [address] Work Phone: Start: 11-21-2018 Patient encounter procedure Erin Davenportollahi LI-Ocumfarkqsphj-GRU [place] [address] Work Phone: Start: 08-29-2018 End: 08-29-2018 Patient encounter procedure [facility] Start: 08-15-2018 Patient encounter procedure Erin Wall Nematollahi ZE-Atphwvaatkixv-XUP [place] [address] Work Phone: Start: 03-16-2018 Patient encounter procedure Erinangelica Wall Nematollahi LW-Vagouokbrempj-NKL [place] [address] Work Phone: Start: 11-17-2017 Patient encounter procedure Erinangelica Wall Nematollahi LM-Ibdopuoyifgmp-NAM [place] [address] Work Phone: Start: 05-26-2017 Patient encounter procedure Erinangelica Wall Nematollahi TD-Ioatjmfewxyzl-GVY [place] [address] Work Phone: Procedures Date Procedure Procedure Detail Performing Clinician Start: 11-15-2024 Follow-up visit Follow-up ROLAND WHITING Start: 09-15-2023 Blood count complete automated Bola Claire MD Work Phone: Start: 09-11-2020 Videofluoroscopy swallow External Transcribed Start: 08-09-2019 Ct abdomen & pelvis w/contrast material ISAM DABOUL Start: 03-20-2019 TSH WITH REFLEX TO F REE T4 IF ABNORMAL Erin [facility] Start: 08-29-2018 DISCHARGE PATIENT ISAM DABOUL Start: [...] 2) Shingles (RZV) Vaccine (1 of 2) [facility] Start: 2041 Zoster Vaccines (1 of 2) Zoster Vaccines (1 of 2) [facility] Start: 03-07-2032 DTaP/Tdap/Td Vaccines (9 - Td or Tdap) DTaP/Tdap/Td Vaccines (9 - Td or Tdap) [facility] Start: 11-15-2026 Tetanus vaccination [facility] Start: 11-15-2024 End: 11-15-2024 Patient encounter procedure 11/15/2024 9:20 AM EST Office Visit [facility] [place] [address] [address] Sanchez Rosalio Mart[address]nez [address] [place] [id number] [place] [address] [address] Department [place] [address] [facility] Start: 09-15-2024 Creatinine measurement Basic Metabolic Panel [facility] Start: 09-13-2024 End: 05-15-2025 25-hydroxyvitamin D3 [Mass/volume] in Serum or Plasma Vitamin D 25-Hydroxy,Total (for eval of Vitamin D levels) Lab Routine History of hypercalcemia Hyperparathyroidism (Multi) Expected: 09/13/2024, Expires: 05/15/2025 [facility] Work Phone: Comment on above: Expected: 09/13/2024, Expires: Start: 09-13-2024 End: 05-15-2025 Magnesium [Mass/volume] in Serum or Plasma Magnesium Lab Routine History of hypercalcemia Expected: 09/13/2024, Expires: 05/15/2025 [facility] Work Phone: Comment on above: Expected: 09/13/2024, Expires: Start: 09-13-2024 End: 05-15-2025 Parathyrin.intact [Mass/volume] in Serum or Plasma Parathyroid Hormone, Intact Lab Routine History of hypercalcemia Expected: 09/13/2024, Expires: 05/15/2025 [facility] Work Phone: Comment on above: Expected: 09/13/2024, Expires: Start: 09-13-2024 End: 05-15-2025 Renal function 2000 panel - Serum or Plasma Renal Function Panel Lab Routine History of hypercalcemia Expected: 09/13/2024, Expires: 05/15/2025 [facility] Work Phone: Comment on above: Expected: 09/13/2024, Expires: Start: 09-13-2024 End: 05-15-2025 Thyrotropin [Units/volume] in Serum or Plasma Thyroid Stimulating Hormone Lab Routine Hypothyroidism, unspecified type Expected: 09/13/2024, Expires: 05/15/2025 [facility] Work Phone: Comment on above: Expected: 09/13/2024, Expires: Start: 09-13-2024 End: 05-15-2025 Thyroxine (T4) free [Mass/volume] in Serum or Plasma Thyroxine, Free Lab Routine Hypothyroidism, unspecified type Expected: 09/13/2024, Expires: 05/15/2025 [facility] Work Phone: Comment on above: Expected: 09/13/2024, Expires: Start: 07-14-2024 Influenza vaccination Influenza Vaccine (#1) [facility] Start: 05-15-2024 End: 05-15-2025 US Thyroid gland US thyroid Imaging Routine Thyroid nodule Expected: 05/15/2024, Expires: 05/15/2025 [facility] Work Phone: Comment on above: Expected: 05/15/2024, Expires: Start: 05-15-2024 End: 05-15-2024 Patient encounter procedure 05/15/2024 11:40 AM EDT Office Visit [facility] [address] [address] [id number] [place] [address] [address] Department [place] [address] [facility] Start: 11-15-2023 End: 11-15-2024 Calcitriol [Mass/volume] in Serum or Plasma Vitamin D 1,25 Dihydroxy (for eval of hypercalcemia) Lab Routine Hypercalcemia Expected: 11/15/2023, Expires: 11/15/2024 [facility] Work Phone: Comment on above: Expected: 11/15/2023, Expires: Start: 11-15-2023 End: 11-15-2024 Calcium.ionized [Moles/volume] in Blood Calcium, Ionized Lab Routine Hypercalcemia Expected: 11/15/2023, Expires: 11/15/2024 [facility] Work Phone: Comment on above: Expected: 11/15/2023, Expires: Start: 11-15-2023 End: 11-15-2024 Hepatic function 2000 panel - Serum or Plasma Hepatic Function Panel Lab Routine Hypercalcemia Expected: 11/15/2023, Expires: 11/15/2024 [facility] Work Phone: Comment on above: Expected: 11/15/2023, Expires: Start: 11-15-2023 End: 11-15-2024 Parathyrin.intact [Mass/volume] in Serum or Plasma Parathyroid Hormone, Intact Lab Routine Hypercalcemia Expected: 11/15/2023, Expires: 11/15/2024 [facility] Service Area Work Phone: Comment on above: Expected: 11/15/2023, Expires: Start: 11-15-2023 End: 11-15-2024 Renal function 2000 panel - Serum or Plasma Renal Function Panel Lab Routine Hypercalcemia Expected: 11/15/2023, Expires: 11/15/2024 [facility] Work Phone: Comment on above: Expected: 11/15/2023, Expires: Start: 11-15-2023 End: 11-15-2024 Thyrotropin [Units/volume] in Serum or Plasma Thyroid Stimulating Hormone Lab Routine Hypothyroidism, unspecified type Expected: 11/15/2023, Expires: 11/15/2024 [facility] Work Phone: Comment on above: Expected: 11/15/2023, Expires: Start: 11-15-2023 End: 11-15-2024 Thyroxine (T4) free [Mass/volume] in Serum or Plasma Thyroxine, Free Lab Routine Hypothyroidism, unspecified type Expected: 11/15/2023, Expires: 11/15/2024 [facility] Work Phone: Comment on above: Expected: 11/15/2023, Expires: Start: 10-02-2023 End: 10-02-2023 DENTAL RESTORATIONS DENTAL RESTORATIONS Routine scheduled Caries 10/02/2023 1:10 PM EST [facility] Start: 10-02-2023 End: 10-02-2023 Admission to same day surgery center 10/02/2023 11:24 AM EST - 10/02/2023 1:21 PM EST Surgery [facility] [address] [place], [place] [id number] Tyrese Alexander, [address] [place] [address] DENTAL RESTORATIONS [facility] Comment on above: D[facility]AL RESTORATIONS Start: 10-02-2023 End: 10-02-2023 DENTAL RESTORATIONS DENTAL RESTORATIONS Routine scheduled Caries 10/02/2023 11:24 AM EST [facility] Start: 10-02-2023 End: 10-02-2023 Admission to same day surgery center 10/02/2023 7:30 AM EST - 10/02/2023 9:27 AM EST Surgery [facility] [address] [place] [address] Tyrese Alexander, DDS [address] [place] [address] DENTAL RESTORATIONS [facility] Comment on above: D[facility]AL RESTORATIONS Start: 10-02-2023 End: 10-02-2023 DENTAL RESTORATIONS DENTAL RESTORATIONS Routine scheduled Caries 10/02/2023 7:30 AM EST [facility] Start: 10-02-2023 Subsequent hospital visit by physician [facility] Start: 10-02-2023 End: 10-02-2023 Patient encounter procedure [facility] Start: 09-15-2023 End: 09-15-2023 Patient encounter procedure 09/15/2023 2:00 PM EDT Office Visit [facility] [address] [place] [address] Bola Claire MD [address] [place] [address] [facility] Start: 07-14-2023 COVID-19 Vaccine ( season) COVID-19 Vaccine ( season) [facility] Start: 07-14-2023 COVID-19 Vaccine ( season) COVID-19 Vaccine () [facility] Start: 07-14-2023 Influenza vaccination Influenza Vaccine (#1) [facility] Start: 02-09-2021 COVID-19 Vaccine (3 - Pfizer series) COVID-19 Vaccine (3 - Pfizer series) [facility] Start: 07-14-2020 Influenza vaccination given Sequential Influenza Vaccine (#1) [facility] Start: 08-15-2019 Thyroid stimulating hormone measurement TSH Level [facility] Start: 2018 HPV Vaccine (optional start 27-45 years) HPV Vaccine (optional start 27-45 years) [facility] Start: 07-14-2013 Annual wellness visit Annual Wellness Visit ([id number]) [facility] Start: 2010 Hepatitis B Vaccines (1 of 3 - 19+ 3-dose series) Hepatitis B Vaccines (1 of 3 - 19+ 3-dose series) [facility] Start: 10-28-2009 Varicella vaccination [facility] Start: 2009 Hepatitis C antibody, confirmatory test Hepatitis C Screening [facility] Start: 2009 [facility]atitis C screening [facility] Start: 2006 [facility] Start: 1994 History and physical examination, annual for health maintenance Wellness Visit [facility] Start: 1991 Basic metabolic 2000 panel - Serum or Plasma Basic Metabolic Panel [facility] Start: 1991 Creatinine measurement Basic Metabolic Panel [facility] Start: 1991 Hepatitis B Vaccines (1 of 3 - 3-dose series) Hepatitis B Vaccines (1 of 3 - 3-dose series) [facility] Start: 1991 HIV screening HIV Screening [facility] Start: 1991 Lipid panel Lipid Panel [facility] Start: 1991 Medicare Annual Wellness Visit Medicare Annual Wellness Visit (AWV) [facility] Start: 1991 Tetanus vaccination Tetanus: Every 10yrs [facility] Start: 1991 Thyroid stimulating hormone measurement TSH [facility] End: 09-15-2024 Basic metabolic 2000 panel - Serum or Plasma BASIC METABOLIC PANEL Lab Routine Pre-op exam 1 Occurrences starting 09/15/2023 until 09/15/2024 [facility] Work Phone: Comment on above: 1 Occurrences starting 09/15/2023 until 09/15/2024 CBC panel - Blood by Automated count COMPLETE BLOOD COUNT Lab Routine Pre-op exam Ordered: 09/15/2023 [facility] Comment on above: Ordered: 09/15/2023 DENTAL RESTORATIONS DENTAL FRANKLY[place] RATIONS Routine scheduled Caries [facility] Immunizations Immunization Date Immunization Notes Care Provider [place] 03-07-2022 diphtheria, tetanus toxoids and pertussis vaccine Viry Keeo [facility] Work Phone: [facility] 09-08-2021 influenza, injectabl e, quadrivalent, preservative free Viry Gordoncirillo [facility] Work Phone: [facility] 09-08-2021 influenza virus vaccine, unspecified formulation Carline Mcfarland DDS Work Phone: [facility] 12-15-2020 Pfizer SARS-COV-2 (COVID-19) vaccine, age 12+ yrs, mRNA, spike protein, LNP, preservative free, 30 mcg/0.3mL dose ([id number]) Viry Gordoncirillo [facility] Work Phone: [facility] 11-24-2020 Pfizer SARS-COV-2 (COVID-19) vaccine, age 12+ yrs, mRNA, spike protein, LNP, preservative free, 30 mcg/0.3mL dose (XNU=[id number]) Viry Gordoncirillo [facility] Work Phone: [facility] 08-27-2020 influenza, injectabl e, quadrivalent, preservative free Viry Angel RDH Work Phone: [facility] 08-22-2018 influenza, injectabl e, quadrivalent, contains preservative Viry Angel RDH Work Phone: [facility] Work Phone: 09-06-2017 influenza, injectabl e, quadrivalent, contains preservative Viry Angel RDH Work Phone: [facility] 11-15-2016 tetanus toxoid, redu danika diphtheria toxoid, and acellular pertussis vaccine, adsorbed Erinalva Wall [facility] Comment on above: Series: 09-03-2015 influenza, injectabl e, quadrivalent, preservative free Viry Angel RDH Work Phone: [facility] 09-30-2009 novel [id number], preservative-free, injectable Viry Angel RDH Work Phone: [facility] 09-04-2008 influenza virus vaccine, whole virus Viry Angel RD Work Phone: [facility] 08-29-2007 influenza, seasonal, injectable Viry Angel RDH Work Phone: [facility] 03-29-2007 meningococcal polysaccharide (groups A, C, Y and W-135) diphtheria toxoid conjugate vaccine (MCV4P) Viry Angel RD Work Phone: [facility] 09-29-2006 tetanus toxoid, redu danika diphtheria toxoid, and acellular pertussis vaccine, adsorbed Viry Angel RD Work Phone: [facility] 09-12-2006 influenza, seasonal, injectable Viry Angel RDH Work Phone: [facility] 06-25-2003 measles, mumps and rubella virus vaccine Viry Angel RD Work Phone: [facility] 09-25-1996 diphtheria, tetanus toxoids and pertussis vaccine Viry Angel RD Work Phone: [facility] 09-25-1996 poliovirus vaccine, inactivated Viry Angel RD Work Phone: [facility] 02-05-1993 diphtheria, tetanus toxoids and pertussis vaccine Viry Angel RD Work Phone: [facility] 11-23-1992 haemophilus influenz ae type b vaccine, conjugate unspecified formulation Viry Angel [facility] Work Phone: [facility] 11-23-1992 measles, mumps and rubella virus vaccine Viry Angel [facility] Work Phone: [facility] 10-02-1992 poliovirus vaccine, inactivated Viry Angel [facility] Work Phone: [facility] 02-03-1992 diphtheria, tetanus toxoids and pertussis vaccine Viry Angel [facility] Work Phone: [facility] 02-03-1992 haemophilus influenz ae type b vaccine, conjugate unspecified formulation Viry Angel [facility] Work Phone: [facility] 1991 diphtheria, tetanus toxoids and pertussis vaccine Viry Angel [facility] Work Phone: [facility] 1991 haemophilus influenz ae type b vaccine, conjugate unspecified formulation Viry Angel [facility] Work Phone: [facility] 1991 trivalent poliovirus vaccine, live, oral Viry Angel [facility] Work Phone: [facility] 1991 diphtheria, tetanus toxoids and pertussis vaccine Viry Angel RD Work Phone: [facility] 1991 haemophilus influenz ae type b vaccine, conjugate unspecified formulation Viry Angel [facility] Work Phone: [facility] 1991 trivalent poliovirus vaccine, live, oral Viry Dykesllo [facility] Work Phone: [facility] Payers Date Payer Category Payer Unknown 2020 Medicaid MEDICAID [facility] [id number] 2020-Present [id number] 2016 Medicare [id number] 2012 Medicare [id number] 2010 Medicaid [id number] [id number] [id number] 1991 Unknown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
== END 2025-03-24 20:06 | disposition home or self-care (01) ==
LOC: LAB 20:04
PROVIDERS: PCP Family Medicine; Visit Provider Family Medicine
DX: S91.009A Unspecified open wound, unspecified ankle, initial encounter (principal)
CPT/HCPCS: 87070; 87075

== ENCOUNTER 2025-06-02 06:40 | Outpatient (OUT) | payer MEDICARE, MEDICAID, SELFPAY ==
--- OUTSIDE RECORDS SUMMARY | 2025-06-02 06:43 | XMS_ITS | CCD ---
Author Organization [facility] CliniSyn[facility] Care Team Providers Care Management Development Specialist Name Role Phone PASCUAL ISAM Admitting Unavailable DABOUL, ISAM Attending Unavailable EPPSRALEIGH Primary Care Unavailable DABOUL, ISAM Referring Unavailable EPPS, RALEIGH Primary Care Unavailable EPPSRALEIGH Admitting Unavailable EPPS, RALEIGH Cruz Referring Unavailable EppsRaleigh Unavailable EppsRaleigh Primary Care Provider EPPSRALEIGH Attending Unavailable EPPSRALEIGH Referring Unavailable EPPSRALEIGH Primary Care Unavailable Duke Pan, Erin Unavailable Unavai Sai Tena Unavailable Unavailable Nancy DDS, Nataliia Unavailable Epps DORaleigh Primary Care Provider [phone] Sai Batres Unavailable Unavailable Unavailable JAYDE ALEXIS [...] RALEIGH Cruz Primary Care Unavailable MISC, DR DOCTOR Consulting Unavailable MISC, DR YANEZ Admitting Unavailable EPPS, DR RALEIGH Cruz Consulting Unavailable EPPS, DR RALEIGH Cruz Primary Care Unavailable EPPS, DR RALEIGH Cruz Admitting Unavailable EPPS, DR RALEIGH Cruz Attending Unavailable EPPS, DR RALEIGH Cruz Primary Care Unavailable PAY ., DR GORDON Attending Unavailable PAY ., DR GORDON Consulting Unavailable PAY ., DR GORDON Admitting Unavailable YEH, RISA Consulting Unavailable Duke Nematollahi, Erin Referring Jesus Batres, Dr. Sai Mcgrath Primary Care Unavailab le Duke Nematollahi, Erin Attending Unavai lable Duke Nematollahi, Erin Attending Unavai lable Duke Nematollahi, Erin Referring Unamelisa Batres, Dr. Sai Mcgrath Primary Care Unavailab le Duke Nematollahi, Erin Attending Unamelisa Batres, Dr. Sai Mcgrath Primary Care Unavailab le Self, Referral Referring Unavailable Nancy DDS, Nataliia Unavailable Raleigh Epps DO Primary Care Provider [phone] PROVIDER, UNKNOWN Admitting Unavailable PROVIDER, UNKNOWN Attending Unavailable RALEIGH EPPS Primary Care Unavailable PROVIDER, UNKNOWN Admitting Unavailable PROVIDER, UNKNOWN Attending Unavailable RALEIGH EPPS Primary Care Unavailable AL-MASHNI, TYRESE Admitting Unavailable AL-MASHNI, TYRESE Attending Unavailable EPPSRALEIGH MCCAIN A. Primary Care Unavailable PROVIDER, UNKNOWN Admitting Unavailable PROVIDER, UNKNOWN Attending Unavailable RALEIGH EPPS Primary Care Unavailable Sai Batres MD Primary Care Provider RALEIGH EPPS Referring Unavailable RALEIGH EPPS Attending Unavailable RALEIGH EPPS Admitting Unavailable BREE WHITING Attending Unavailable SAI BATRES Primary Care Unavailable BREE WHITING Attending Unavailable SAI BATRES Primary Care Unavailable Unavailable Primary Care Provider Unavailabl e Allergies Allergy Classification Reported Allergen(s) Allergy Type Date of Onset Reaction(s) Facility (3 sources) fluvoxaMINE; Translations: [Luvox] Drug Allergy [facility] Repository (16 sources) QUEtiapine; Translations: [SEROquel TABS] Drug Allergy 02-03-2017 Unknown -Endocrinology -[facility] [place] [address] Work Phone: (5 sources) risperiDONE; Translations: [risperiDONE TABS] Drug Allergy 02-06-2017 Unknown [facility]-Endocrinology -[facility] [place] [address] Work Phone: (2 sources) Valproate; Translations: [Depakote] Drug Allergy [facility]-Endocrinology -[facility] [place] [address] Work Phone: (16 sources) fluvoxaMINE; Translations: [FLUVOXAMINE] Drug Allergy 02-06-2017 Unknown [facility] (13 sources) Valproate; Translations: [VALPROIC ACID] Drug Allergy 02-03-2017 [facility] (13 sources) risperiDONE; Translations: [RISPERIDONE] Drug Allergy 02-06-2017 [facility] (2 sources) QUEtiapine; Translations: [QUETIAPINE] Drug Allergy 02-03-2017 [facility] Repository (3 sources) Valproate; Translations: [DIVALPROEX] Drug Allergy 11-15-2023 [facility] (1 source) QUEtiapine; Translations: [SEROquel] Drug Allergy [facility] Repository Medications Current Medications Medication Drug Class(es) Dates Sig (Normalized) Sig (Original) acetaminophen 325 mg oral tablet (16 sources) Start: 10-02-2023 End: 10-02-2023 acetaminophen (TYLENOL) [...] busPIRone hydrochloride 10 m g oral tablet (17 sources) take 1 tablet by brenna th three times daily busPIRone 10 MG tablet Take 1 tablet by mouth 3 times daily. Active take 3 tablets by mouth three ti mes daily busPIRone (Buspar) 10 mg tablet Take 3 tablets (30 mg) by mouth 3 times a day. Active calcium carbonate 500 mg chewable tablet [...] oral tablet (15 sources) Vitamin D Start: 2 take 1 tablet by mouth once daily cholecalciferol (Vitamin D-3) 25 MCG (1000 UT) tablet Take 1 tablet (25 mcg) by mouth once daily. 03/25/2022 Active Start: 03-25-2022 take 1 tablet by brenna th once daily Vitamin D3 25 MCG (1000 [...] Active docusate sodium 100 mg oral capsule (17 sources) take 1 capsule by mouth twice daily Docusate 100 MG capsule Take 1 capsule by mouth 2 times daily. Active take 1 capsule by mouth three ti mes daily docusate sodium (Colace) 100 mg capsule Take 1 capsule (100 mg) by mouth 3 times a day. Active take 2 capsules by mouth three t imes daily Docusate Sodium 100 MG Oral Capsule 2 capsules 3 times a day Quantity: 0 Refills: 0 Ordered: 01-Aug-2014 DO Active folic acid 1 mg oral tablet (17 sources) take 1 tablet by mouth once daily Folic acid 1 MG tablet Take 1 tablet by mouth daily. Active gabapentin 800 mg oral tablet (7 sources) Anti-epileptic Agent take 2 tablets by mouth twice daily gabapentin 800 MG tablet Take 2 tablets by mouth 2 times daily. Active take 1 capsule by mouth once edith ly gabapentin (Neurontin) 400 mg capsule Take 1 capsule (400 mg) by mouth once daily. Active take 1 tablet by mouth three dalia es daily gabapentin (Neurontin) 800 mg tablet Take 1 [...] 25-Mar-2022 Active take 1 tablet by brenna th twice daily guanFACINE (Tenex) 2 mg tablet Take 1 tablet (2 mg) by mouth twice a day. Active take 4 tablets by mo [facility] in the morning, then take 8 [...] Active lurasidone hydrochloride 120 mg oral tablet (17 sources) Atypical Antipsychotic Start: 01-20-2022 take 1 tablet by mouth once daily at bedtime lurasidone (Latuda) 120 mg tablet Take 1 tablet (120 mg) by mouth once daily at bedtime. 01/20/2022 Active take 1 tablet by mouth at bedtim e lurasidone HCl 80 MG tablet Take 1 tablet by mouth at bedtime. Active melatonin 5 mg oral tablet (16 sources) take 1 tablet by mouth once daily at bedtime melatonin 5 mg tablet Take 1 tablet (5 mg) by mouth once daily at bedtime. Active metoprolol tartrate 100 mg oral tablet (17 sources) beta-Adrenergic Doug take 1 tablet by mouth twice daily Metoprolol 100 MG tab regular release Take 1 tablet by mouth 2 times daily. Active take 1 tablet by mouth four time s daily metoprolol tartrate (Lopressor) 100 mg tablet Take 1 tablet (100 mg) by mouth 4 times a day. Active Multiple Vitamins-Minerals (THERA-M ORAL) (12 sources) take 1 tablet by mouth once daily Multiple Vitamins-Minerals (THERA-M ORAL) Take 1 Tablet by mouth daily. 0 Active 1 ml naloxone hydrochloride 0.4 mg/ml injection (1 source) Opioid Antagonist Start: 023 naloxone (NARCAN) 0.4 MG/ML injection omeprazole 20 mg delayed release oral capsule (17 sources) Proton Pump Inhibitor take 1 capsule by mouth once daily omeprazole [address] capsule Take 1 capsule by mouth daily. Active take 10 tablets by mouth [...] Start: 08-19-2021 take 2 tablets by mo ut twice daily OXcarbazepine 600 MG Oral Tablet [...] % injection topiramate 25 mg oral capsule (5 sources) take 1 capsule by mouth twice daily topiramate 25 MG Cap Sprinkle Take 1 capsule by mouth 2 times daily. Active take 1 capsule by mo uth three times daily topiramate (Topamax Sprinkle) 25 mg caps ule Take 1 capsule (25 mg) by mouth 3 times a day. Active traMADol hydrochloride 50 mg oral tablet (1 source) Opioid Agonist Start: 10-02-2023 End: 10-02-2023 tramadol (ULTRAM) tablet traZODone hydrochloride 100 mg oral tablet (16 sources) Serotonin Reuptake Inhibitor Start: 10-19-2021 take 1 tablet by mouth at bedtime traZODone HCl - 100 MG Oral Tablet TAKE ONE TABLET BY MOUTH AT BEDTIME DESYREL Quantity: 14 Refills: 0 Ordered: 26-Jan-2022 DO Start : 19-Oct-2021 Active Start: 10-19-2021 take 0.5 tablet by m outh once daily at bedtime traZODone (Desyrel) 100 mg tablet Take 0.5 tablets (50 mg) by mouth once daily at bedtime. 10/19/2021 Active vitamin b12 1 mg oral tablet [...] Active levothyroxine sodium 0.05 mg oral tablet (19 sources) l-Thyroxine Start: 12-28-19 18 End: 05-15-20 [...] daily Refills: 0 Active polyethylene glycol 3350 57783 mg powder for oral solution (2 sources) [...] chemistry] Episodic Other aftercare (1 source) Other half-way (current) drug therapy; Translations: [OTH DE ICER ELEMENT WINDER CURRENT DRUG THERAPY] Onset: 3 Episodic Other [...] Problem Shagufta maradiaga Migration; 2013-07-05; Moved to Suppressed Oct 05 2013 9:01PM; Other nutritional; endocrine; and metabolic disorders (2 sources) Hypocalcemia; Translations: [Hypocalcemia] Chronic Other nutritional; endocrine; and metabolic disorders (1 source) Hypocalcemia; Translations: [HYPOCALCEMIA] Onset: 2 Chronic Other nutritional; endocrine; and metabolic disorders (2 sources) Abnormal weight loss; Translations: [Loss of weight] Episodic Comment on above: Added by Problem Shagufta hiren Migration; 2013-07-05; Moved to Oct 05 2013 [...] Facility Consent for Treatmenton Consent for Treatment [id number] .[id number] Normal [facility] XR Adult Swallowing Function w/ [...] mGy = 17.10 DAP = 395.03 Normal [facility] Physician Orderon 12-11-2023 Physician Order [id number]. 00TIFF Normal [facility] Anesthesia Postprocedure Clara luationon 10-03-2023 Air Drier Machine Operator Authentication Interface Message Text Anesthesia Postoperative Assessment: [...] EVENTS: No notable events documented. Normal [facility] Anesthesia Preprocedure Eval uationon 10-02-2023 Air Drier Machine Operator Authentication Interface Message Text ASA: 3 No [...] were discussed with the patient and/or legal in home sales representative. The risks, benefits and alternatives were reviewed. Questions regarding anesthesia were answered. Patient and/or legal in home sales representative knows such anesthetics and procedures may be performed by Resident physicians, Certified Anesthesiologist Assistants, or Certified Nurse Anesthetists under the supervision of a physician. The patient /or the patient's legal in home sales representative agree with the plan for [...] DENTAL RESTORATIONS; Surgeon: Grabiel Cummings DDS; Location: [facility] [place]; Service: Dental * EXTRACTION, TOOTH 02/06/2017 Procedure: EXTRACTION, TOOTH; Surgeon: Noé Drew DDS; Location: [facility]; Service: Dental * UNLISTED PROCEDURE, DENTOALVEOLAR STRUCTURES 04/29/10 * X-RAY EXAM OF TEETH. [id number] 04/29/10 Social History Socioeconomic History * Marital status: Single Tobacco Use * Smoking status: Never * Smokeless tobacco: Never Social History Narrative [facility]. Brother is guardian. Current Outpatient Medications on [...] carbamazepine (more content not included)... Normal [facility] Anesthesia Transfer Of Careo n 10-02-2023 Air Drier Machine Operator Authentication Interface Message Text Patient taken to [...] surgical history indicates: X-RAY EXAM OF TEETH. [id number] (04/29/10) UNLISTED PROCEDURE, DENTOALVEOLAR STRUCTURES (04/29/10) DENTAL RESTORATIONS (02/06/2017) Procedure: DENTAL RESTORATIONS; Surgeon: Noé Drew DDS; Location: PERIOPERATIVE SERVICES; Service: Dental EXTRACTION, TOOTH (02/06/2017) Procedure: EXTRACTION, TOOTH; Surgeon: Noé Drwe DDS; Location: PERIOPERATIVE SERVICES; Service: Dental DENTAL RESTORATIONS (02/15/2021) Procedure: DENTAL RESTORATIONS; Surgeon: Grabiel Cummings DDS; Location: [facility] [place]; Service: Dental Allergies: Depakote [valproic acid], Luvox [fluvoxamine], Risperidone, and Seroquel [quetiapine] Basic Operating Room Facts: Surgeon(s): Tyrese Alexander DDS Anesthesiologist: Timothy Elizalde MD SALES DEVELOPMENT MANAGER: Rainer Fatima APRN-ARANZA Anesthesia Student: Joyce Rivers DENTAL RESTORATIONS (Bilateral) [...] report was received. KATIE Cunningham Normal [facility] Blood Attestationon 10-02-20 Air Drier Machine Operator Authentication Interface Message Text Blood Attestation: ATTESTATION OF INFORMED CONSENT FOR BLOOD: The transfusion of blood and/or blood components were discussed with the patient and/or legal in home sales representative. The risks, benefits and alternatives were reviewed. Questions regarding blood transfusions were answered. The patient /or the patient's legal in home sales representative agree with the plan for transfusion of blood and/or blood components. Normal [facility] Brief Operative Noteon 10-02 Air Drier Machine Operator Authentication Interface Message Text Brief Operative Note [facility] OR 3 Markel Li 33 year old male Surgical Contact Serial Number: [id number] Preoperative Diagnosis: Caries [K02.9] Autism [ F 84] Postoperative Diagnosis: * Caries [K02.9] Procedures: Full mouth X ray [17849] Comprehensive exam [20057] Prophylaxis [96043] Restorations [18906] Surgeon(s): Surgeon(s): Tyrese Alexander DDS Staff: Call Center Consultant Nurse: Nina Galan RN Geothermal Hvac Technician: Ca Raza DDS; Rosas Narayanan DDS Anesthesia: General Anesthesiologist: Timothy Elizalde MD SALES DEVELOPMENT MANAGER: Rainer Fatima APRN-CRNA Anesthesia Student: Joyce [...] Martini DDS 10/02/2023 2:29 PM Normal [facility] OP Noteon 10-02-2023 Air Drier Machine Operator Authentication Interface Message Text Surgical Case Number Data Unavailable Operating Room Data Unavailable Preoperative Diagnosis: Caries [K02.9] Autism [ F 84] Preoperative Diagnosis: Caries [K02.9] Autism [ F 84] Postoperative Diagnosis: Autism [ F 84] Procedures: Full mouth X ray [79505] Comprehensive exam [49226] Prophylaxis [61851] Restorations [91780] Postoperative Diagnosis(es): Same @ENCORD@ Surgeon: Dr Tyra DDS Tube Puller Surgeon: WILLIAMS Corcoran DDS Anesthesia: General- Nasal [...] Martini DDS 10/02/2023 2:34 PM Normal [facility] Progress Noteson 10-02-2023 Air Drier Machine Operator Authentication Interface Message Text ----- Monday, October 02, 2023 at 2:27:57 PM ----- ----- Provider: [id number] Tyrese Mary DDS -- Clinic: [facility] ----- [place] notes, [facility] pt is read for tx good [place]. [...] Note Type: OP Note Status: Cosign Needed Blower Mechanic: Rosas Narayanan DDS (Resident) Cosign Required: Yes Expand All Collapse All Surgical Case Number Data Unavailable Operating Room Data Unavailable Preoperative Diagnosis: Caries [K02.9] Autism [ F 84] Preoperative Diagnosis: Caries [K02.9] Autism [ F 84] Postoperative Diagnosis: Autism [ F 84] Procedures: Full mouth X ray [98703] Comprehensive exam [88288] Prophylaxis [25150] Restorations [47543] Postoperative Diagnosis(es): Same @ENCORD@ Surgeon: Dr Tyra DDS Tube Puller Surgeon: WILLIAMS Corcoran DDS Anesthesia: General- Nasal [...] Martini DDS 10/02/2023 2:34 PM Normal [facility] Telephone Encounteron 2022 Air Drier Machine Operator Authentication Interface Message Text DD adult dental restorations on 10/02 under [place] at [place]. PSE completed - consents obtained. PSE RN spoke to Miriam from [facility], confirmed NPO, [place] address, and 1100 arrival time Normal [facility] Telephone Encounteron 2022 Air Drier Machine Operator Authentication Interface Message Text Informed Consent for dental surgery AND Anesthesia consent obtained and scanned into [facility]. Scheduled for surgery 10/02/2023. Normal The [facility] BASIC METABOLIC PANELon 11-0 Anion gap [Moles/Vol] 13 mmol/L Normal 10-20 The [facility] Comment on above: Performed By: #### C H8 ####[facility] [id number] [place], [place], Calcium [Mass/Vol] 9.6 mg/dL Normal 8.4-10.4 The [facility] Comment on above: Performed By: #### C H8 ####[facility] [id number] [place], [place], Chloride [Moles/Vol] 105 mmol/L Normal 97-111 The [facility] Comment on above: Performed By: #### C H8 ####[facility] [id number] [place], CO2 [Moles/Vol] 26 mmol/L Normal 21-30 The [facility] Comment on above: Performed By: #### C H8 ####[facility] [id number] [place], Creatinine [Mass/Vol] 1.58 mg/dL High 0.80-1.30 The [facility] Comment on above: Performed By: #### C H8 ####[facility] [id number] [place], ESTIMATED GFR (CKD-EPI) 59 mL/min/1.73sqm Low [...] Inclusion of Race in Diagnosing Kidney Disease. [place] Journal of Kidney Diseases 2021;79(2):268-88.e1. 2. N Engl J Med 2020 Vol. 385 Issue 19 Pages 7550-5393 Performed By: #### C H8 ####[facility] [id number] [place], Glucose [Mass/Vol] 69 mg/dL Normal 68-110 The [facility] Comment on above: Performed By: #### C H8 ####S PATHOLOGY [id number] [place], Potassium [Moles/Vol] 4.1 mmol/L Normal 3.3-5.3 The [facility] Comment on above: Performed By: #### C H8 ####S PATHOLOGY [id number] [place], Sodium [Moles/Vol] 140 mmol/L Normal 135-148 The [facility] Comment on above: Performed By: #### C H8 ####S PATHOLOGY [id number] [place], Urea nitrogen [Mass/Vol] 18 mg/dL Normal 8-22 [facility] Comment on above: Performed By: #### C H8 ####[facility] PATHOLOGY [id number] [place], [place], Basic metabolic 2000 panelon 09-15-2023 Anion [...] patient's full clinical presentation. Reference: 1. Jay Ramos, Joel M, Buddy DC, et al.. A Unifying Approach for GFR Estimation: Recommendations of the NKF-ASN Task Force on Reassessing the Inclusion of Race in Diagnosing Kidney Disease. [place] Journal of Kidney Diseases 202;79(2):268-88.e1. 2. N Engl J Med 1 Vol. 385 Issue 19 Pages 2615-8975 Glucose [Mass/Vol] 69 mg/dL 68 - 110 mg/dL [facility] Interpretation and review of laboratory results Abnormal [facility] Potassium [Moles/Vol] 4.1 mmol/L 3.3 - 5.3 mmol/L [facility] Sodium [Moles/Vol] 140 mmol/L 135 - 148 mmol/L [facility] Urea nitrogen [Mass/Vol] 18 mg/dL 8 - 22 mg/dL [facility] CBC panel Auto (Bld)on 09-15 Erythrocyte distribution width (RBC) [Ratio] 13.3 % 11.5 - 14.5 % [facility] Hematocrit (Bld) [Volume fraction] 41.8 % 41.0 - 53.0 % [facility] Hemoglobin (Bld) [Mass/Vol] 13.8 g/dL Low 13.9 - 16.3 g/dL [facility] Interpretation and review of laboratory results Abnormal [facility] MCH (RBC) [Entitic mass] 28.7 pg 26.0 - 34.0 pg [facility] MCHC (RBC) [Mass/Vol] 32.9 g/dL 32.0 - 35.9 g/dL [facility] MCV (RBC) [Entitic vol] 87 fL 80 - 100 fL [facility] Platelet mean volume (Bld) [Entitic vol] 8.7 fL 7.5 - 11.2 fL [facility] Platelets (Bld) [#/Vol] 213 10*3/uL 150 - 400 K/uL [facility] RBC (Bld) [#/Vol] 4.80 10*6/uL [facility] WBC (Bld) [#/Vol] 6.3 10*3/uL 4.5 - 11.5 K/uL [facility] COMPLETE BLOOD COUNTon 09-15 Erythrocyte distribution width (RBC) [Ratio] 13.3 % Normal 11.5-14.5 The [facility] Comment on above: Performed By: #### C BC ####[facility] [id number] [place], [id number] Hematocrit (Bld) [Volume fraction] 41.8 % Normal 41.0-53.0 The [facility] Comment on above: Performed By: #### C BC ####[facility] [id number] [place], Hemoglobin (Bld) [Mass/Vol] 13.8 g/dL Low 13.9-16.3 The [facility] Comment on above: Performed By: #### C BC ####[facility] [id number] [place], MCH (RBC) [Entitic mass] 28.7 pg Normal 26.0-34.0 The [facility] Comment on above: Performed By: #### C BC ####[facility] PATHOLOGY [id number] [place], MCHC (RBC) [Mass/Vol] 32.9 g/dL Normal 32.0-35.9 The [facility] Comment on above: Performed By: #### C BC ####[facility] PATHOLOGY [id number] [place], MCV (RBC) [Entitic vol] 87 fL Normal 80-100 The [facility] Comment on above: Performed By: #### C BC ####[facility] PATHOLOGY [id number] [place], Platelet mean volume (Bld) [Entitic vol] 8.7 fL Normal 7.5-11.2 The [facility] Comment on above: Performed By: #### C BC ####[facility] [id number] [place], Platelets (Bld) [#/Vol] 213 10*3/uL Normal 150-400 The [facility] Comment on above: Performed By: #### C BC ####[facility] [id number] [place], RBC (Bld) [#/Vol] 4.80 10*6/uL Normal 4.50-5.90 The [facility] Comment on above: Performed By: #### C BC ####[facility] [id number] [place], WBC (Bld) [#/Vol] 6.3 10*3/uL Normal 4.5-11.5 The [facility] Comment on above: Performed By: #### C ####[facility] [id number] [place], [place], PSE Chartingon 09-15-2023 Air Drier Machine Operator Authentication Interface Message Text Dental Consult The [...] Treatment Dental Treatment in the OR Follow-up [facility] if needed Note: Legal guardian: Yogesh Li (BROTHER): [phone]. The patient lives in a Facility. A caregiver brushes his teeth twice a day. Ramu Jernigan DDS Normal The [facility] Patient Instructionson 09-15 Air Drier Machine Operator Authentication Interface Message Text RECOMMENDATIONS: Patient was instructed on the following: Nothing by mouth after midnight before surgery except following meds with sip of water on AM of surgery: as per anesthesia Stop aspirin 7 days before surgery Stop NSAID 5 days before surgery Stop Vitamin E 10 days prior to surgery Stop alternative/herbal medication 10 days before surgery Normal The [facility] Progress Noteson 09-15-2023 Air Drier Machine Operator Authentication Interface Message Text Blood pressure 112/72, [...] [Quetiapine] Latex Allergy: No Surgical Procedure: dental restorationism Surgeon: unknown Date of Surgery: 10/02/2023 HISTORY: [...] DENTAL RESTORATIONS; Surgeon: Grabiel Cummings DDS; Location: [facility]; Service: Dental EXTRACTION, TOOTH 02/06/2017 Procedure: EXTRACTION, TOOTH; Surgeon: Noé Drew DDS; Location: PERIOPERATIVE SERVICES; Service: Dental UNLISTED PROCEDURE, DENTOALVEOLAR STRUCTURES 04/29/10 X-RAY EXAM OF TEETH. 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 Normal The [facility] Air Drier Machine Operator Authentication Interface Message Text Patient was identified by name and date of . Lashon Parsons Normal The [facility] Progress Noteson 09-06-2023 Air Drier Machine Operator Authentication Interface Message Text Parent/guardian(Mag gaines @ [place]) was contacted for PSE AND OR scheduled -- confirmed information with mom, also informed mom importance of receiving PSE call -- if not received surgery will be canceled ----- Wednesday, September 06, 2023 at 11:27:36 AM ----- ----- Provider: Bridget Lombardi Specialist -- Clinic: [place] ----- Normal The [facility] Follow Up (Endocrinology)on 03-14-2023 Follow Up [...] Services - Lab To Draw (Blood Test); Due:[id number];Ordered ; For:Hypocalcemia, Hypothyroidism, Low vitamin D level; [...] visit regarding his thyroid. History of Present Nsxdssi89 yo male with severe mental retardation, autism, bipolar disorder,severe psychosis,GERD, HTN , hypercalcemia [facility] with exacerbation by lithium intake [...] then eats a day after. not on Mccurtain 300 mg , did not changed since last visit as per sheet . guardian is brother Yogesh nb [phone] seeing GI , EGD was fine. no acute issues. is losing weight again , had a lip biopsy and infected ulcer is healed, weight loss has stopped, on Lt4 50 mcgq day and we need recent albs, slightly more agitated , had a fall with bruise on his face , CT physician is following. no changes in neuro [...] 01-20-2023 Osmolality [Osmolality] 291 mosm/kg Normal 275-295 [facility] Comment on above: Performed By: #### C MP, T4, TSH #### [facility] [address] [place] [address] Dr. Juan Argueta CBC AUTO DIFFon 01-18-2023 BASO # 0.0 103/ul Normal 0.0-0.1 [facility] Comment on above: Performed By: #### C MP, T4, TSH #### [facility] [address] [place] [address] Dr. Juan Argueta Basophils/100 WBC (Bld) 0.6 % Normal 0.2-2.0 [facility] Comment on above: Performed By: #### C MP, T4, TSH #### [facility] [address] [place] [address] Dr. Juan Argueta EO # 0.1 103/ul Normal 0.0-0.7 [facility] Comment on above: Performed By: #### C MP, T4, TSH #### [facility] [address] [place] [address] Dr. Juan Argueta Eosinophils/100 WBC (Bld) 2.8 % Normal 0.9-7.0 [facility] Comment on above: Performed By: #### C MP, T4, TSH #### [facility] [address] [place] [address] Dr. Juan Argueta Erythrocyte distribution width (RBC) [Ratio] 12.9 % Normal 11.0-15.0 [facility] Comment on above: Performed By: #### C MP, T4, TSH #### [facility] [address] [address] [address] Juan Argueta Hematocrit (Bld) [Volume fraction] 45.4 % Normal 42.0-54.0 [facility] Comment on above: Performed By: #### C MP, T4, TSH #### [facility] [address] [address] [address] Juan Argueta Hemoglobin (Bld) [Mass/Vol] 15.4 g/dL Normal 14.0-18.0 [facility] Comment on above: Performed By: #### C MP, T4, TSH #### [facility] [address] [place] [address] Dr. Juan Argueta IG # 0.01 10e3/ul Normal 0.00-0.03 [facility] Comment on above: Performed By: #### C MP, T4, TSH #### [facility] [address] [place] [address] Dr. Juan Argueta IG % 0.2 % Normal 0.0-0.5 [facility] Comment on above: Performed By: #### C MP, T4, TSH #### [facility] [address] [address] [address] Juan Argueta LYMPH # 1.3 103/ul Normal 1.2-3.8 [facility] Comment on above: Performed By: #### C MP, T4, TSH #### [facility] [address] [address] [address] Juan Argueta Lymphocytes/100 WBC (Bld) 25.1 % Normal 20.5-60.0 [facility] Comment on above: Performed By: #### C MP, T4, TSH #### [facility] [address] [address] [address] Juan Argueta MANUAL DIFF REQ NO Normal [facility] Comment on above: Performed By: #### C MP, T4, TSH #### [facility] [address] [place] [address] Dr. Juan Argueta MCH (RBC) [Entitic mass] 28.3 pg Normal 25.9-34.0 [facility] Comment on above: Performed By: #### C MP, T4, TSH #### [facility] [address] [place] [address] Dr. Juan Argueta MCHC (RBC) [Mass/Vol] 33.9 g/dL Normal 29.9-35.2 [facility] Comment on above: Performed By: #### C MP, T4, TSH #### [facility] [address] [place] [address] Dr. Juan Argueta MCV (RBC) [Entitic vol] 83.3 fL Normal 80.0-94.0 [facility] Comment on above: Performed By: #### C MP, T4, TSH #### [facility] [address] [place] [address] Dr. Juan Argueta MONO # 0.3 103/ul Normal 0.3-0.8 [facility] Comment on above: Performed By: #### C MP, T4, TSH #### [facility] [address] [place] [address] Dr. Juan Argueta Monocytes/100 WBC (Bld) 5.9 % Normal 1.7-12.0 [facility] Comment on above: Performed By: #### C MP, T4, TSH #### [facility] [address] [place] [address] Dr. Juan Argueta NEUT # 3.3 103/ul Normal 1.4-6.5 [facility] Comment on above: Performed By: #### C MP, T4, TSH #### [facility] [address] [place] [address] Dr. Juan Argueta Neutrophils/100 WBC (Bld) 65.4 % Normal 43.0-75.0 [facility] Comment on above: Performed By: #### C MP, T4, TSH #### [facility] [address] [place] [address] Dr. Juan Argueta Platelet mean volume (Bld) [Entitic vol] 9.5 fL Normal 9.5-13.5 [facility] Comment on above: Performed By: #### C MP, T4, TSH #### [facility] [address] [place], [place] [id number] Dr. Juan Argueta PLT 244 103/ul Normal 150-450 [facility] Comment on above: Performed By: #### C MP, T4, TSH #### [facility] [address] [address] [address] Juan Argueta RBC 5.45 106/ul Normal 4.70-6.10 [facility] Comment on above: Performed By: #### C MP, T4, TSH #### [facility] [address] [address] [address] Juan Argueta WBC 5.1 103/ul Normal 4.0-11.0 [facility] Comment on above: Performed By: #### C MP, T4, TSH #### [facility] [address] [place] [address] Dr. Juan Argueta GLYCOHEMOGLOBIN A1Con 2022 ADA RECOMMENDATION SEE BELOW Normal [facility] Comment on above: Result Comment: ADA RECOMMENDED LIMIT 4.0 - 6.0 ADA THERAPEUTIC TARGET < 7.0 ACTION SUGGESTED > 7.0 Performed By: #### C MP, T4, TSH #### [facility] [address] [place] [address] Dr. Juan Argueta Glucose [Mass/Vol] 100 mg/dL Normal [facility] Comment on above: Performed By: #### C MP, T4, TSH #### [facility] [address] [place] [address] Dr. Juan Argueta HbA1c (Bld) [Mass fraction] 5.1 % Normal 4.5-6.2 [facility] Comment on above: Performed By: #### C MP, T4, TSH #### [facility] [address] [place] [address] Dr. Juan Argueta PROF 14(COMP METB)on 023 Albumin [Mass/Vol] 4.2 g/dL Normal 3.4-5.0 [facility] Comment on above: Performed By: #### C MP, T4, TSH #### [facility] [address] [place] [address] Dr. Juan Argueta Albumin/Globulin [Mass ratio] 1.0 {ratio} Normal [facility] Comment on above: Performed By: #### C MP, T4, TSH #### [facility] [address] [place] [address] Dr. Juan Argueta ALP [Catalytic activity/Vol] 152 U/L Critically high 46-116 [facility] Comment on above: Performed By: #### C MP, T4, TSH #### [facility] [address] [place] [address] Dr. Juan Argueta ALT [Catalytic activity/Vol] 34 U/L Normal 16-63 [facility] Comment on above: Performed By: #### C MP, T4, TSH #### [facility] [address] [place] [address] Dr. Juan Argueta Anion gap [Moles/Vol] 12.0 mmol/L Normal [facility] Comment on above: Performed By: #### C MP, T4, TSH #### [facility] [address] [place] [address] Dr. Juan Argueta AST [Catalytic activity/Vol] 31 U/L Normal 15-37 [facility] Comment on above: Performed By: #### C MP, T4, TSH #### [facility] [address] [place] [address] Dr. Juan Argueta Bilirubin [Mass/Vol] 0.2 mg/dL Normal 0.2-1.0 [facility] Comment on above: Performed By: #### C MP, T4, TSH #### [facility] [address] [place] [address] Dr. Juan Argueta Calcium [Mass/Vol] 9.4 mg/dL Normal 8.5-10.1 [facility] Comment on above: Performed By: #### C MP, T4, TSH #### [facility] [address] [place] [address] Dr. Juan Argueta Chloride [Moles/Vol] 104 mmol/L Normal 98-107 [facility] Comment on above: Performed By: #### C MP, T4, TSH #### [facility] [address] [place] [address] Dr. Juan Argueta CO2 [Moles/Vol] 26.5 mmol/L Normal 21.0-32.0 [facility] Comment on above: Performed By: #### C MP, T4, TSH #### [facility] [address] [address] [address] Juan Argueta Creatinine [Mass/Vol] 1.60 mg/dL Critically high 0.70-1.30 [facility] Comment on above: Performed By: #### C MP, T4, TSH #### [facility] [address] [address] [address] Juan Argueta EGFR-AF TURKISH >60 Normal >=60 [facility] Comment on above: Performed By: #### C MP, T4, TSH #### [facility] [address] [place] [address] Dr. Juan Argueta EGFR-NON AF TURKISH 51 mL/min/1.73m2 Critically low >=60 [facility] Comment on above: Performed By: #### C MP, T4, TSH #### [facility] [address] [place] [address] Dr. Juan Argueta Globulin (S) [Mass/Vol] 4.1 g/dL Normal [facility] Comment on above: Performed By: #### C MP, T4, TSH #### [facility] [address] [place] [address] Dr. Juan Argueta Glucose [Mass/Vol] 95 mg/dL Normal 74-106 [facility] Comment on above: Performed By: #### C MP, T4, TSH #### [facility] [address] [place] [address] Dr. Juan Argueta Potassium [Moles/Vol] 4.5 mmol/L Normal 3.5-5.1 [facility] Comment on above: Performed By: #### C MP, T4, TSH #### [facility] [address] [place] [address] Dr. Juan Argueta Protein [Mass/Vol] 8.3 g/dL Critically high 6.4-8.2 [facility] Comment on above: Performed By: #### C MP, T4, TSH #### [facility] [address] [address] [address] Juan Argueta Sodium [Moles/Vol] 138 mmol/L Normal 136-[address] [facility] Comment on above: Performed By: #### C MP, T4, TSH #### [facility] [address] [address] [address] Juan Argueta Urea nitrogen [Mass/Vol] 22.0 mg/dL Critically high 7.0-18.0 [facility] Comment on above: Performed By: #### C MP, T4, TSH #### [facility] [address] [address] [address] Juan Argueta Urea nitrogen/Creatinine [Mass ratio] 13.8 mg/mg Normal [facility] Comment on above: Performed By: #### C MP, T4, TSH #### [facility] [address] [address] [address] Juan Argueta T4on 01-18-2023 T4 [Mass/Vol] 3.20 ug/dL Critically low 4.50-12.10 [facility] Comment on above: Performed By: #### C MP, T4, TSH #### [facility] [address] [address] [address] Juan Argueta TSHon 01-18-2023 TSH 2.037 uIU/mL Normal 0.358-3.740 [facility] Comment on above: Performed By: #### C MP, T4, TSH #### [facility] [id number] [address] Juan Argueta US THYROIDon 01-04-2023 US [...] by: LUIS FERMIN Date: 2023-01-04 15:52 Normal [facility] OSMOLALITYon 10-06-2022 Osmolality [Osmolality] 307 mosm/kg Critically high 275-295 [facility] Comment on above: Performed By: #### C MP, T4, TSH #### [facility] [address] [address] [address] Juan Argueta T3, TOTAL (TRIIODOTHYRONINE) on 10-05-2022 T3, TOTAL 52 ng/dL Critically low 71-180 [facility] Comment on above: Performed By: #### C MP, T4, TSH #### [facility] [address] [address] [address] Juan Argueta GLYCOHEMOGLOBIN A1Con 2021 ADA RECOMMENDATION SEE BELOW Normal [facility] Comment on above: Result Comment: ADA RECOMMENDED LIMIT 4.0 - 6.0 ADA THERAPEUTIC TARGET < 7.0 ACTION SUGGESTED > 7.0 Performed By: #### C MP, T4, TSH #### [facility] [address] [place] [address] Dr. Juan Argueta Glucose [Mass/Vol] 105 mg/dL Normal [facility] Comment on above: Performed By: #### C MP, T4, TSH #### [facility] [address] [place] [address] Dr. Juan Argueta HbA1c (Bld) [Mass fraction] 5.3 % Normal 4.5-6.2 [facility] Comment on above: Performed By: #### C MP, T4, TSH #### [facility] [address] [place] [address] Dr. Juan Argueta PROF 14(COMP METB)on 022 Albumin [Mass/Vol] 4.2 g/dL Normal 3.4-5.0 [facility] Comment on above: Performed By: #### T SH, CMP #### [facility] [address] [place] [address] Dr. Juan Argueta Albumin/Globulin [Mass ratio] 1.1 {ratio} Normal [facility] Comment on above: Performed By: #### T SH, CMP #### [facility] [address] [place] [address] Dr. Juan Argueta ALP [Catalytic activity/Vol] 122 U/L Critically high 46-116 [facility] Comment on above: Performed By: #### T SH, CMP #### [facility] [address] [place] [address] Dr. Juan Argueta ALT [Catalytic activity/Vol] 53 U/L Normal 16-63 [facility] Comment on above: Performed By: #### T SH, CMP #### [facility] [address] [address] [address] Juan Argueta Anion gap [Moles/Vol] 12.4 mmol/L Normal [facility] Comment on above: Performed By: #### T SH, CMP #### [facility] [address] [place] [address] Dr. Juan Argueta AST [Catalytic activity/Vol] 22 U/L Normal 15-37 [facility] Comment on above: Performed By: #### T SH, CMP #### [facility] [address] [place] [address] Dr. Juan Argueta Bilirubin [Mass/Vol] 0.2 mg/dL Normal 0.2-1.0 [facility] Comment on above: Performed By: #### T SH, CMP #### [facility] [address] [place] [address] Dr. Juan Argueta Calcium [Mass/Vol] 9.6 mg/dL Normal 8.5-10.1 [facility] Comment on above: Performed By: #### T SH, CMP #### [facility] [address] [place] [address] Dr. Juan Argueta Chloride [Moles/Vol] 108 mmol/L Critically high 98-107 [facility] Comment on above: Performed By: #### T SH, CMP #### [facility] [address] [address] [address] Juan Argueta CO2 [Moles/Vol] 28.8 mmol/L Normal 21.0-32.0 [facility] Comment on above: Performed By: #### T SH, CMP #### [facility] [address] [place] [address] Dr. Juan Argueta Creatinine [Mass/Vol] 1.77 mg/dL Critically high 0.70-1.30 [facility] Comment on above: Performed By: #### T SH, CMP #### [facility] [address] [place] [address] Dr. Juan Argueta EGFR-AF TURKISH 55 mL/min/1.73m2 Critically low >=60 [facility] Comment on above: Performed By: #### T SH, CMP #### [facility] [address] [address] [address] Juan Argueta EGFR-NON AF TURKISH 45 mL/min/1.73m2 Critically low >=60 [facility] Comment on above: Performed By: #### T TANJA, CMP #### [facility] [address] [place] [address] Dr. Juan Argueta Globulin (S) [Mass/Vol] 3.7 g/dL Normal [facility] Comment on above: Performed By: #### T TANJA, CMP #### [facility] [address] [place] [address] Dr. Juan Argueta Glucose [Mass/Vol] 94 mg/dL Normal 74-106 [facility] Comment on above: Performed By: #### T TANJA, CMP #### [facility] [address] [place] [address] Dr. Juan Argueta Potassium [Moles/Vol] 4.2 mmol/L Normal 3.5-5.1 [facility] Comment on above: Performed By: #### T TANJA, CMP #### [facility] [address] [place] [address] Dr. Juan Argueta Protein [Mass/Vol] 7.9 g/dL Normal 6.4-8.[address] [facility] Comment on above: Performed By: #### T TANJA, CMP #### [facility] [address] [place] [address] Dr. Juan Argueta Sodium [Moles/Vol] 145 mmol/L Normal 136-145 [facility] Comment on above: Performed By: #### T SH, CMP #### [facility] [address] [place] [address] Dr. Juan Argueta Urea nitrogen [Mass/Vol] 28.0 mg/dL Critically high 7.0-18.0 [facility] Comment on above: Performed By: #### T SH, CMP #### [facility] [address] [place] [address] Dr. Juan Argueta Urea nitrogen/Creatinine [Mass ratio] 15.8 mg/mg Normal [facility] Comment on above: Performed By: #### T TANJA, CMP #### [facility] [address] [place] [address] Dr. Juan Argueta TSHon 10-04-2022 TSH 1.456 uIU/mL Normal 0.358-3.740 [facility] Comment on above: Performed By: #### T TANJA, CMP #### [facility] [address] [place] [address] Dr. Juan Argueta VITAMIN D 25 OHon 10-04-2022 VIT D 25-OH 51.1 ng/mL Normal [facility] Comment on above: Performed By: #### C MP, T4, TSH #### [facility] [address] [place] [address] Dr. Juan Argueta VIT D RANGES SEE BELOW Normal [facility] Comment on above: Result Comment: <20 ng/mL Vit D deficient 20 - <30 ng/mL Vit D insufficient 30 - 100 ng/mL Vit D sufficient >100 ng/mL Potential Toxicity Performed By: #### C MP, T4, TSH #### [facility] [address] [place] [address] Dr. Juan Argueta Follow Up (Endocrinology)on 09-30-2022 [...] Services - Lab To Draw (Blood Test); Due:[id number];Ordered ; For:Hypocalcemia, Hypothyroidism, Low vitamin D level, Multinodular goiter; Ordered By:Erin Ogden; Osmolality, Serum; Status:Active; Requested for:30Sep2022; Perform:Lab Services - Lab To Draw (Blood Test); Due:[id number];Ordered ; For:Hypocalcemia, Hypothyroidism, Low vitamin D level, Multinodular goiter; Ordered By:Erin Ogden; Osmolality, Urine Spot; Status:Active; Requested for:30Sep2022; Perform:Lab Services - Lab To Draw (Non-Blood Test); Due:[id number];Ordered ; For:Hypocalcemia, Hypothyroidism, Low vitamin D level, Multinodular goiter; Ordered By:Erin Ogden; TSH WITH REFLEX TO FREE T4 IF ABNORMAL; Status:Active; Requested for:30Sep2022; Perform:Lab Services - Lab To Draw (Blood Test); Due:[id number];Ordered ; For:Hypocalcemia, Hypothyroidism, Low vitamin D level, Multinodular goiter; Ordered By:Erin Ogden; Ultrasound Thyroid; Status:Hold For - Scheduling; Requested for:30Sep2022; Perform: Radiology Services Imaging; Due:[id number];Ordered ; For:Hypocalcemia, Hypothyroidism, Low vitamin D level, Multinodular goiter; Ordered By:Erin Ogden; Radiologist to Determine Optimal Study : Y What are the patient's signs and symptoms? : f/u Vitamin D 25-Hydroxy; Status:Active; Requested for:30Sep2022; Perform:Lab Services - Lab To Draw (Blood Test); Due:[id number];Ordered ; For:Hypocalcemia, Hypothyroidism, Low vitamin D level, Multinodular goiter; Ordered By:Erin Ogden; Patient Discussion/Summary we will call you with labs Provider Impressions 32 yo male with severe mental retardation, autism, bipolar disorder,severe psychosis,GERD, HTN , hypercalcemia likely 2/2 H with exacerbation by lithium intake (that has [...] low vitamin d levels. History of Present [id number] yo male with severe mental retardation, autism, bipolar disorder,severe psychosis,GERD, HTN , [facility] 2/2 H with exacerbation by lithium intake (that has [...] then eats a day after. not on Mccurtain 300 mg , did not changed since last visit as per sheet . guardian is brother Yogesh nb [phone] seeing GI , EGD was fine. no acute issues. is losing weight again , had a lip biopsy and infected ulcer is healed, weight loss has stopped, on Lt4 50 mcgq day and we need recent albs, slightly more agitated , had a fall with bruise on his face , CT physician is following. no changes in neuro [...] no acu (more content not included)... Normal [employer] CBC AUTO DIFFon 09-20-2022 BASO # 0.1 103/ul Normal 0.0-0.1 [facility] Comment on above: Performed By: #### C MP, T4, TSH #### [facility] [address] [place] [address] Dr. Juan Argueta Basophils/100 WBC (Bld) 1.2 % Normal 0.2-2.0 [facility] Comment on above: Performed By: #### C MP, T4, TSH #### [facility] [address] [place] [address] Dr. Juan Argueta EO # 0.2 103/ul Normal 0.0-0.7 [facility] Comment on above: Performed By: #### C MP, T4, TSH #### [facility] [address] [place] [address] Dr. Juan Argueta Eosinophils/100 WBC (Bld) 5.0 % Normal 0.9-7.0 [facility] Comment on above: Performed By: #### C MP, T4, TSH #### [facility] [address] [place] [address] Dr. Juan Argueta Erythrocyte distribution width (RBC) [Ratio] 12.8 % Normal 11.0-15.0 [facility] [facility] Comment on above: Performed By: #### C MP, T4, TSH #### [facility] [address] [place] [address] Dr. Juan Argueta Hematocrit (Bld) [Volume fraction] 42.0 % Normal 42.0-54.0 [facility] Comment on above: Performed By: #### C MP, T4, TSH #### [facility] [address] [address] [address] Juan Argueta Hemoglobin (Bld) [Mass/Vol] 14.0 g/dL Normal 14.0-18.0 [facility] Comment on above: Performed By: #### C MP, T4, TSH #### [facility] [address] [place] [address] Dr. Juan Argueta IG # 0.01 10e3/ul Normal 0.00-0.03 [facility] Comment on above: Performed By: #### C MP, T4, TSH #### [facility] [address] [place] [address] Dr. Juan Argueta IG % 0.2 % Normal 0.0-0.5 [facility] Comment on above: Performed By: #### C MP, T4, TSH #### [facility] [address] [place] [address] Dr. Juan Argueta LYMPH # 1.5 103/ul Normal 1.2-3.8 [facility] Comment on above: Performed By: #### C MP, T4, TSH #### [facility] [address] [place] [address] Dr. Juan Argueta Lymphocytes/100 WBC (Bld) 34.9 % Normal 20.5-60.0 [facility] Comment on above: Performed By: #### C MP, T4, TSH #### [facility] [address] [place] [address] Dr. Juan Argueta MANUAL DIFF REQ NO Normal [facility] Comment on above: Performed By: #### C MP, T4, TSH #### [facility] [address] [place] [address] Dr. Juan Argueta MCH (RBC) [Entitic mass] 29.0 pg Normal 25.9-34.0 [facility] Comment on above: Performed By: #### C MP, T4, TSH #### [facility] [address] [place] [address] Dr. Juan Argueta MCHC (RBC) [Mass/Vol] 33.3 g/dL Normal 29.9-35.2 [facility] Comment on above: Performed By: #### C MP, T4, TSH #### [facility] [address] [place] [address] Dr. Juan Argueta MCV (RBC) [Entitic vol] 87.0 fL Normal 80.0-94.0 [facility] Comment on above: Performed By: #### C MP, T4, TSH #### [facility] [address] [place] [address] Dr. Juan Argueta MONO # 0.3 103/ul Normal 0.3-0.8 [facility] Comment on above: Performed By: #### C MP, T4, TSH #### [facility] [address] [place] [address] Dr. Juan Argueta Monocytes/100 WBC (Bld) 6.8 % Normal 1.7-12.0 [facility] Comment on above: Performed By: #### C MP, T4, TSH #### [facility] [address] [place] [address] Dr. Juan Argueta NEUT # 2.2 103/ul Normal 1.4-6.5 [facility] Comment on above: Performed By: #### C MP, T4, TSH #### [facility] [address] [place] [address] Dr. Juan Argueta Neutrophils/100 WBC (Bld) 51.9 % Normal 43.0-75.0 [facility] Comment on above: Performed By: #### C MP, T4, TSH #### [facility] [address] [place] [address] Dr. Juan Argueta Platelet mean volume (Bld) [Entitic vol] 10.1 fL Normal 9.5-13.5 [facility] Comment on above: Performed By: #### C MP, T4, TSH #### [facility] [address] [place] [address] Dr. Juan Argueta PLT 252 103/ul Normal 150-450 [facility] Comment on above: Performed By: #### C MP, T4, TSH #### [facility] [address] [place] [address] Dr. Juan Argueta RBC 4.83 106/ul Normal 4.70-6.10 [facility] Comment on above: Performed By: #### C MP, T4, TSH #### [facility] [address] [place] [address] Dr. Juan Argueta WBC 4.2 103/ul Normal 4.0-11.0 [facility] Comment on above: Performed By: #### C MP, T4, TSH #### [facility] [address] [place] [address] Dr. Juan Argueta FREE T4on 09-20-2022 Free T4 [Mass/Vol] 0.50 ng/dL Critically low 0.76-1.46 Th e [facility] Comment on above: Performed By: #### B 12FOL, FT4 #### [facility] [address] [place] [address] Dr. Juan Argueta PROF 14(COMP METB)on 022 Albumin [Mass/Vol] 4.1 g/dL Normal 3.4-5.0 [facility] Comment on above: Performed By: #### C MP, T4, TSH #### [facility] [address] [place] [address] Dr. Juan Argueta Albumin/Globulin [Mass ratio] 1.1 {ratio} Normal [facility] Comment on above: Performed By: #### C MP, T4, TSH #### [facility] [address] [place] [address] Dr. Juan Argueta ALP [Catalytic activity/Vol] 107 U/L Normal 46-116 [facility] Comment on above: Performed By: #### C MP, T4, TSH #### [facility] [address] [place] [address] Dr. Juan Argueta ALT [Catalytic activity/Vol] 79 U/L Critically high 16-63 [facility] Comment on above: Performed By: #### C MP, T4, TSH #### [facility] [address] [place] [address] Dr. Juan Argueta Anion gap [Moles/Vol] 8.4 mmol/L Normal [facility] Comment on above: Performed By: #### C MP, T4, TSH #### [facility] [address] [address] [address] Juan Argueta AST [Catalytic activity/Vol] 32 U/L Normal 15-37 [facility] Comment on above: Performed By: #### C MP, T4, TSH #### [facility] [address] [address] [address] Juan Argueta Bilirubin [Mass/Vol] 0.2 mg/dL Normal 0.2-1.0 [facility] Comment on above: Performed By: #### C MP, T4, TSH #### [facility] [address] [address] [address] Juan Argueta Calcium [Mass/Vol] 9.2 mg/dL Normal 8.5-10.1 [facility] Comment on above: Performed By: #### C MP, T4, TSH #### [facility] [address] [address] [address] Juan Argueta Chloride [Moles/Vol] 104 mmol/L Normal 98-107 [facility] Comment on above: Performed By: #### C MP, T4, TSH #### [facility] [address] [address] [address] Juan Argueta CO2 [Moles/Vol] 30.2 mmol/L Normal 21.0-32.0 [facility] Comment on above: Performed By: #### C MP, T4, TSH #### [facility] [address] [address] [address] Juan Argueta Creatinine [Mass/Vol] 1.67 mg/dL Critically high 0.70-1.30 [facility] Comment on above: Performed By: #### C MP, T4, TSH #### [facility] [address] [address] [address] Juan Argueta EGFR-AF TURKISH 58 mL/min/1.73m2 Critically low >=60 [facility] Comment on above: Performed By: #### C MP, T4, TSH #### [facility] [address] [address] [address] Juan Argueta EGFR-NON AF TURKISH 48 mL/min/1.73m2 Critically low >=60 [facility] Comment on above: Performed By: #### C MP, T4, TSH #### [facility] [address] [place] [address] Dr. Juan Argueta Globulin (S) [Mass/Vol] 3.6 g/dL Normal [facility] Comment on above: Performed By: #### C MP, T4, TSH #### [facility] [address] [place] [address] Dr. Juan Argueta Glucose [Mass/Vol] 94 mg/dL Normal 74-106 [facility] Comment on above: Performed By: #### C MP, T4, TSH #### [facility] [address] [place] [address] Dr. Juan Argueta Potassium [Moles/Vol] 4.6 mmol/L Normal 3.5-5.1 [facility] Comment on above: Performed By: #### C MP, T4, TSH #### [facility] [address] [place] [address] Dr. Juan Argueta Protein [Mass/Vol] 7.7 g/dL Normal 6.4-8.[address] [facility] Comment on above: Performed By: #### C MP, T4, TSH #### [facility] [address] [place] [address] Dr. Juan Argueta Sodium [Moles/Vol] 138 mmol/L Normal 136-145 [facility] Comment on above: Performed By: #### C MP, T4, TSH #### [facility] [address] [place] [address] Dr. Juan Argueta Urea nitrogen [Mass/Vol] 28.0 mg/dL Critically high 7.0-18.0 [facility] Comment on above: Performed By: #### C MP, T4, TSH #### [facility] [address] [place] [address] Dr. Juan Argueta Urea nitrogen/Creatinine [Mass ratio] 16.8 mg/mg Normal [facility] Comment on above: Performed By: #### C MP, T4, TSH #### [facility] [address] [place], [place] [address] Dr. Juan Argueta TSHon 09-20-2022 TSH 1.895 uIU/mL Normal 0.358-3.740 [facility] Comment on above: Performed By: #### C MP, T4, TSH #### [facility] [address] [place] [address] Dr. Juan Argueta VIT B12 AND FOLATEon 022 Cobalamin (Vitamin B12) [Mass/Vol] 350.0 pg/mL Normal 193.0-986.0 [facility] Comment on above: Performed By: #### B 12FOL, FT4 #### [facility] [address] [place] [address] Dr. Juan Argueta FOLATE 16.40 ng/mL Normal 8.60-58.90 [facility] Comment on above: Performed By: #### B 12FOL, FT4 #### [facility] [address] [place] [address] Dr. Juan Argueta VITAMIN D 25 OHon 09-20-2022 VIT D 25-OH 49.9 ng/mL Normal [facility] Comment on above: Performed By: #### V ITAD #### [facility] [address] [place] [address] Dr. Juan Argueta VIT D RANGES SEE BELOW Normal [facility] Comment on above: Result Comment: <20 ng/mL Vit D deficient 20 - <30 ng/mL Vit D insufficient 30 - 100 ng/mL Vit D sufficient >100 ng/mL Potential Toxicity Performed By: #### V ITAD #### [facility] [address] [place] [address] Dr. Juan Argueta CBC AUTO DIFFon 09-10-2022 BASO # 0.0 103/ul Normal 0.0-0.1 [facility] Comment on above: Performed By: #### C BC #### [facility] [address] [place] [address] Dr. Juan Argueta Basophils/100 WBC (Bld) 0.3 % Normal 0.2-2.0 [facility] Comment on above: Performed By: #### C BC #### [facility] [address] [place] [address] Dr. Juan Argueta EO # 0.1 103/ul Normal 0.0-0.7 [facility] Comment on above: Performed By: #### C BC #### [facility] [address] [place] [address] Dr. Juan Argueta Eosinophils/100 WBC (Bld) 1.5 % Normal 0.9-7.0 [facility] Comment on above: Performed By: #### C BC #### [facility] [address] [place] [address] Dr. Juan Argueta Erythrocyte distribution width (RBC) [Ratio] 12.8 % Normal 11.0-15.0 [facility] Comment on above: Performed By: #### C BC #### [facility] [address] [place] [address] Dr. Juan Argueta Hematocrit (Bld) [Volume fraction] 38.6 % Critically low 42.0-54.0 [facility] Comment on above: Performed By: #### C BC #### [facility] [address] [place] [address] Dr. Juan Argueta Hemoglobin (Bld) [Mass/Vol] 13.2 g/dL Critically low 14.0-18.0 [facility] Comment on above: Performed By: #### C BC #### [facility] [address] [place] [address] Dr. Juan Argueta IG # 0.02 10e3/ul Normal 0.00-0.03 [facility] Comment on above: Performed By: #### C BC #### [facility] [address] [place] [address] Dr. Juan Argueta IG % 0.2 % Normal 0.0-0.5 [facility] Comment on above: Performed By: #### C BC #### [facility] [address] [place] [address] Dr. Juan Argueta LYMPH # 0.9 103/ul Critically low 1.2-3.[address] [facility] Comment on above: Performed By: #### C BC #### [facility] [address] [place] [address] Dr. Juan Argueta Lymphocytes/100 WBC (Bld) 10.0 % Critically low 20.5-60.0 [facility] Comment on above: Performed By: #### C BC #### [facility] [address] [place] [address] Dr. Juan Argueta MANUAL DIFF REQ NO Normal [facility] Comment on above: Performed By: #### C BC #### [facility] [address] [address] [address] Juan Argueta MCH (RBC) [Entitic mass] 29.2 pg Normal 25.9-34.0 [facility] Comment on above: Performed By: #### C BC #### [facility] [address] [place] [address] Dr. Juan Argueta MCHC (RBC) [Mass/Vol] 34.2 g/dL Normal 29.9-35.2 [facility] Comment on above: Performed By: #### C BC #### [facility] [address] [place] [address] Dr. Juan Argueta MCV (RBC) [Entitic vol] 85.4 fL Normal 80.0-94.0 [facility] Comment on above: Performed By: #### C BC #### [facility] [address] [place] [address] Dr. Juan Argueta MONO # 0.5 103/ul Normal 0.3-0.8 [facility] Comment on above: Performed By: #### C BC #### [facility] [address] [place] [address] Dr. Juan Argueta Monocytes/100 WBC (Bld) 5.3 % Normal 1.7-12.0 [facility] Comment on above: Performed By: #### C BC #### [facility] [address] [place] [address] Dr. Juan Argueta NEUT # 7.4 103/ul Critically high 1.4-6.5 [facility] Comment on above: Performed By: #### C BC #### [facility] [address] [place] [address] Dr. Juan Argueta Neutrophils/100 WBC (Bld) 82.7 % Critically high 43.0-75.0 [facility] Comment on above: Performed By: #### C BC #### [facility] [address] [address] [address] Juan Argueta Platelet mean volume (Bld) [Entitic vol] 9.8 fL Normal 9.5-13.5 [facility] Comment on above: Performed By: #### C BC #### [facility] [address] [address] [address] Juan Argueta PLT 226 103/ul Normal 150-450 [facility] Comment on above: Performed By: #### C BC #### [facility] [address] [address] [address] Juan Argueat RBC 4.52 106/ul Critically low 4.70-6.10 [facility] Comment on above: Performed By: #### C BC #### [facility] [address] [address] [address] Juan Argueta WBC 8.9 103/ul Normal 4.0-11.0 [facility] Comment on above: Performed By: #### C BC #### [facility] [address] [place] [address] HEAD WO CONon [...] by: JON PARKS Date: 2022-09-10 12:09 Normal [facility] PROF 14(COMP METB)on 09-10- 022 Albumin [Mass/Vol] 4.1 g/dL Normal 3.4-5.0 [facility] Comment on above: Performed By: #### C MP #### [facility] [address] [place] [address] Dr. Juan Argueta Albumin/Globulin [Mass ratio] 1.2 {ratio} Normal [facility] Comment on above: Performed By: #### C MP #### [facility] [address] [place] [address] Dr. Juan Argueta ALP [Catalytic activity/Vol] 100 U/L Normal 46-116 [facility] Comment on above: Performed By: #### C MP #### [facility] [address] [place] [address] Dr. Juan Argueta ALT [Catalytic activity/Vol] 39 U/L Normal 16-63 [facility] Comment on above: Performed By: #### C MP #### [facility] [address] [place] [address] Dr. Juan Argueta Anion gap [Moles/Vol] 16.5 mmol/L Normal [facility] Comment on above: Performed By: #### C MP #### [facility] [address] [place] [address] Dr. Juan Argueta AST [Catalytic activity/Vol] 35 U/L Normal 15-37 [facility] Comment on above: Performed By: #### C MP #### [facility] [address] [place] [address] Dr. Juan Argueta Bilirubin [Mass/Vol] 0.3 mg/dL Normal 0.2-1.0 [facility] Comment on above: Performed By: #### C MP #### [facility] [address] [place] [address] Dr. Juan Argueta Calcium [Mass/Vol] 8.2 mg/dL Critically low 8.5-10.1 [facility] Comment on above: Performed By: #### C MP #### [facility] [address] [place] [address] Dr. Juan Argueta Chloride [Moles/Vol] 101 mmol/L Normal 98-107 [facility] Comment on above: Performed By: #### C MP #### [facility] [address] [address] [address] Juan Argueta CO2 [Moles/Vol] 18.8 mmol/L Critically low 21.0-32.0 [facility] Comment on above: Performed By: #### C MP #### [facility] [address] [address] [address] Juan Argueta Creatinine [Mass/Vol] 1.37 mg/dL Critically high 0.70-1.30 [facility] Comment on above: Performed By: #### C MP #### [facility] [address] [place] [address] Dr. Juan Argueta EGFR-AF TURKISH >60 Normal >=60 [facility] Comment on above: Performed By: #### C MP #### [facility] [address] [address] [address] Juan Argueta EGFR-NON AF TURKISH >60 Normal >=60 [facility] Comment on above: Performed By: #### C MP #### [facility] [address] [address] [address] Juan Argueta Globulin (S) [Mass/Vol] 3.3 g/dL Normal [facility] Comment on above: Performed By: #### C MP #### [facility] [address] [address] [address] Juan Argueta Glucose [Mass/Vol] 103 mg/dL Normal 74-[address] [facility] Comment on above: Performed By: #### C MP #### [facility] [address] [place] [address] Dr. Juan Argueta Potassium [Moles/Vol] 4.3 mmol/L Normal 3.5-5.1 [facility] Comment on above: Performed By: #### C MP #### [facility] [address] [place] [address] Dr. Juan Argueta Protein [Mass/Vol] 7.4 g/dL Normal 6.4-8.[address] [facility] Comment on above: Performed By: #### C MP #### [facility] [address] [place], [place] [address] Dr[address] Juan Argueta Sodium [Moles/Vol] 132 mmol/L Critically low 136-145 [facility] Comment on above: Performed By: #### C MP #### [facility] [address] [place], [place] [address] Dr[address] Juan Argueta Urea nitrogen [Mass/Vol] 23.0 mg/dL Critically high 7.0-18.0 [facility] Comment on above: Performed By: #### C MP #### [facility] [address] [place], [place] [address] Dr. Juan Argueta Urea nitrogen/Creatinine [Mass ratio] 16.8 mg/mg Normal [facility] Comment on above: Performed By: #### C MP #### [facility] [address] [place], [place] [address] HEAD WO CONon [...] RISA PENNY Date: 2022-07-19 10:21 Normal [facility] Follow Up (Endocrinology)on 03-25-2022 Follow Up (Endocrinology) [...] By:Erin Ogden; Triiodothyronine, Level (T3); Status:Active; Requested for:[id number]; Perform:Lab Services - Lab To Draw (Blood Test); Due:[id number];Ordered ; For:Hypothyroidism, Low vitamin D level; Ordered By:Erin Ogden; TSH - Thyroid Stimulating Hormone, Serum; Status:Active; Requested for:[id number]; Perform:Lab Services - Lab To Draw (Blood Test); Due:[id number];Ordered ; For:Hypothyroidism, Low vitamin D level; Ordered [...] visit hypothyrpidism and hypercalcemia History of Present [age][place]70 yo male with severe mental retardation, autism, [...] then eats a day after. not on Mccurtain 300 mg , did not changed since last visit as per sheet . guardian is brother Yogesh nb [phone] seeing GI , EGD was fine. no acute issues. is losing weight again , had a lip biopsy and infected ulcer is healed, weight loss has stopped, on Lt4 50 mcgq day and we need recent albs, slightly more agitated , had a fall with bruise on his face , CT physician is following. no changes in neuro exam. TSH was normal on labs , , calcium and sodium normal, no acute issues (more content not included)... [facility] X[facility] MODIFIED BARIUM SWALLOWon 09-11-2020 No radiographic evidence of tracheal aspiration. For further information as well as dietary recommendations, please refer to the speech pathologist's detailed report. [employer] Workstation ID: [id number] [facility] [...] [facility] Interface, Rad In [employer] Speechq - 09/11/2020 10:03 PM EDT EXAMINATION: [...] refer to the speech pathologist's detailed report. [employer] Workstation ID: [id number] [facility] [...] refer to the speech pathologist's detailed report. [employer] Workstation ID: [id number] Dictated by: BRANDAN CERVANTES on MonSep 11, 2020 2:10:21 PM EDT Transcribed by: BONIFACIO IBARRA on MonSep 11, 2020 2:53:24 PM EDT Finalized by: BRANDAN CERVANTES on MonSep 11, 2020 10:00:[address] [facility] Comment on above: Order Comment: Miriam vieyra orders Injury/Trauma or Illness?:Illness/Other How long have you had these symptoms (acute/chronic)?:Chronic Reason for exam?:Pharyngeal dysphagia Type of Exam?:Ongoing Additional signs and symptoms?:Pharyngeal dysphagia Fluoro time in minutes:1.05 Fluoro dose in mGy?:36.08 COVID-19, MOLECULARon 2019 SARS-COV-2 (CEPHEID) Not Detected Normal Not Detected [facility] Comment on above: Result Comment: This test was performed under the FDA's Emergency Use Authorization (EUA). Testing was performed using the Xpert Xpress SARS-CoV-2 Cepheid assay on the [employer] Dx platform. This test has not been approved for use in asymptomatic patients and its performance in this patient population has not been evaluated. Negative results do not rule out the presence of SARS-CoV-2/COVID-19. Fact sheets for this EUA can be found at the following links: For Healthcare Providers: https://www.fda.gov/media/178573/download For Patients: https://www.fda.gov/media/389701/download Performed By: #### L [id number] #### [facility] [address] [place] [address] Rustam Morillo M.D. [id number] CT ABDOMEN PELVIS W IV CONTR Vicky [...] Grabiel Aleman MD 08/09/[address] [facility] Surgical Pathologyon 10-17-2 018 Surgical Pathology (NOTE) [id number] [facility] [address] [place], [place] [id number] SURGICAL PATHOLOGY REPORT Patient Name: MARKEL LI MR#: [id number] Specimen #[id number] Final Diagnosis SPECIMEN A : SMALL BOWEL, [...] loss; EGD biopsy; colonoscopy, hemorrhoids; formalin time: T=6921, Y=5013 Source: A: Small bowel biopsies B: Gastric [...] examination confirms the final pathologic diagnosis. Normal [facility] Comment on above: Performed By: #### P PPES #### [facility] [address] [facility] [place], [place] [id number] Vital Signs Date Time Vital Sign Value Performing Clinician Faci lity 05-15-2024 12:03-0400 Body height 185.4 cm Bree Whiting MD Work Phone: [facility] 05-15-2024 12:03-0400 Body mass index (BMI) [Ratio] 26.91 kg/m2 Bree Whiting MD Work Phone: [facility] 05-15-2024 12:03-0400 Body weight 92.53 kg Bree Whiting MD Work Phone: [facility] 05-15-2024 12:03-0400 Diastolic blood pressure 66 mm[Hg] Bree Whiting MD Work Phone: [facility] 05-15-2024 12:03-0400 Heart rate 61 /min Bree Whiting MD Work Phone: [facility] 05-15-2024 12:03-0400 Systolic blood pressure 102 mm[Hg] Bree Whiting MD Work Phone: [facility] 11-15-2023 10:44-0500 Body height 182.9 cm Bree Whiting MD Work Phone: [facility] 11-15-2023 10:44-0500 Body mass index (BMI) [Ratio] 27.67 kg/m2 Bree Whiting MD Work Phone: [facility] 11-15-2023 10:44-0500 Body weight 92.53 kg Bree Whiting MD Work Phone: [facility] 10-02-2023 15:17-0500 Body temperature 96.8 [degF] Tyrese Alexander DDS Work Phone: [facility] 10-02-2023 15:17-0500 Diastolic blood pressure 91 mm[Hg] Tyrese Alexander DDS Work Phone: [facility] 10-02-2023 15:17-0500 Heart rate 58 /min Tyrese Alexander DDS Work Phone: [facility] 10-02-2023 15:17-0500 Respiratory rate 22 /min Tyrese Alexander DDS Work Phone: [facility] 10-02-2023 15:17-0500 SaO2% (BldA) [Mass fraction] 100 % Tyrese Alexander DDS Work Phone: [facility] 10-02-2023 15:17-0500 Systolic blood pressure 141 mm[Hg] Tyrese Alexander DDS Work Phone: [facility] 10-02-2023 11:35-0500 Body height 177.8 cm Tyrese Alexander DDS Work Phone: [facility] 10-02-2023 11:35-0500 Body mass index (BMI) [Ratio] 29.27 kg/m2 Tyrese Alexander DDS Work Phone: [facility] 10-02-2023 11:35-0500 Body weight 92.53 kg Tyrese Alexander DDS Work Phone: [facility] 09-15-2023 15:07-0400 Body height 179 cm Bola Claire MD Work Phone: [facility] 09-15-2023 15:07-0400 Body mass index (BMI) [Ratio] 28.97 kg/m2 Bola Claire MD Work Phone: [facility] 09-15-2023 15:07-0400 Body temperature 97.7 [degF] Bola Claire MD Work Phone: [facility] 09-15-2023 15:07-0400 Body weight 92.81 kg Bola Claire MD Work Phone: [facility] 09-15-2023 15:07-0400 Diastolic blood pressure 72 mm[Hg] Bola Claire MD Work Phone: [facility] 09-15-2023 15:07-0400 Heart rate 58 /min Bola Claire MD Work Phone: [facility] 09-15-2023 15:07-0400 Respiratory rate 32 /min Bola Claire MD Work Phone: [facility] 09-15-2023 15:07-0400 SaO2% (BldA) [Mass fraction] 99 % Bola Claire MD Work Phone: [facility] 09-15-2023 15:07-0400 Systolic blood pressure 112 mm[Hg] Bola Claire MD Work Phone: [facility] 03-20-2019 12:52-0400 BMI (Body Mass Index) 22.24 kg/m2 Erin Pan GB-Nruorkmypnvwt-XEV [place] [address] Work Phone: 03-20-2019 12:52-0400 Body weight 74.39 kg Erin Harveyhi RT-Hnqbuyypzqbqb-XFX [place] [address] Work Phone: 03-20-2019 12:52-0400 BP Diastolic 72 mm[Hg] Erin Pan ZH-Fnnmrkgntqqyy-FNK [place] [address] Work Phone: 03-20-2019 12:52-0400 BP Systolic 103 mm[Hg] Erin Harveyhi TI-Zgtaamrhrzroi-EBD [place] [address] Work Phone: 03-20-2019 12:52-0400 BSA (Body Surface Area) 1.96 m2 Erin Harveyhi ES-Gdtfhgkkcqlyw-MSP [place] [address] Work Phone: 03-20-2019 12:52-0400 Height 182.88 cm Erin Harveyhi FJ-Elbazlnrqiadp-UCL [place] [address] Work Phone: 03-20-2019 12:52-0400 Pulse (Heart Rate) 62 /min Erin Pan TM-Wjlojrhlvorly-SIB [place] [address] Work Phone: 03-20-2019 12:52-0400 Pulse Oximetry 100 % Erin Pan PR-Gumadruqjtxgz-UTM [facility] [address] Work Phone: 03-20-2019 12:52-0400 Respiratory Rate 14 /min Erin Pan CU-Whsujwzrattjz-GJH [facility] [address] Work Phone: Encounters Encounter Date Encounter Type Care Provider Facility Start: 05-19-2025 End: 05-19-2025 Patient encounter procedure Jesica Sanchez WILLIAMS Work Phone: [employer] Comment on above: Encounter for dental examination and cleaning with abnormal findings (Primary Dx) Start: 05-19-2025 End: 05-19-2025 Patient encounter status Jesica Sanchez WILLIAMS Work Phone: [facility] Work Phone: Start: 11-15-2024 End: 11-15-2024 ambulatory [facility] Start: 05-15-2024 End: 05-15-2024 ambulatory [facility] Start: 05-15-2024 End: 05-15-2024 Office outpatient visit 15 minutes Bree Whiting MD Work Phone: [facility] [place] [facility] [place] Comment on above: Hypothyroidism, unsp ecified type (Primary Dx); History of hypercalcemia; Thyroid nodule; Hyperparathyroidism (Multi) Start: 12-15-2023 End: 12-16-2023 ambulatory RALEIGH EPPS Facility:[facility] Start: 11-15-2023 End: 11-15-2023 Office outpatient visit 25 minutes Bree Whiting MD Work Phone: [facility] [place] [facility] [place] Comment on above: Hypercalcemia (Prima ry Dx); Hypothyroidism, unspecified type Start: 10-02-2023 End: 10-02-2023 ambulatory TYRESE ALEXANDER Facility:[facility] Start: 10-02-2023 End: 10-02-2023 Subsequent hospital visit by physician Tyrese Alexander DDS Work Phone: [facility] Start: 10-02-2023 End: 10-03-2023 ambulatory UNKNOWN PROVIDER Facility:[facility] Start: 10-02-2023 End: 10-03-2023 Patient encounter procedure Tyreseazul HughesPaige DDS Work Phone: [facility] Start: 09-27-2023 Telephone encounter Cheri mercado RN [facility] Pre Surgical Evaluation Start: 09-19-2023 Telephone encounter Lina rubin RN [facility] Pre Surgical Evaluation Comment on above: Pre-surgical Evaluat ion (Informed Consent & Anesthesia consent obtained) Start: 09-15-2023 Encounter for other preprocedural examination UNKNOWN PROVIDER [facility] Start: 09-15-2023 End: 09-15-2023 ambulatory UNKNOWN PROVIDER Facility:[facility] Start: 09-15-2023 End: 09-15-2023 Patient encounter procedure Pse Anesthesia [facility] Pre Surgical Evaluation Comment on above: Pre-op evaluation (P rimary Dx) Start: 09-15-2023 Admission to [facility] Ramu Jernigan DDS Work Phone: [facility] Start: 09-15-2023 End: 09-15-2023 Office outpatient visit 25 minutes Bola Claire MD Work Phone: [facility] Comment on above: Pre-op exam (Primary Dx); Body mass index (BMI) 28.0-28.9, adult Start: 09-15-2023 End: 09-15-2023 Preprocedural examination done Bola Claire MD Work Phone: [facility] Work Phone: Start: 08-18-2023 Admission to [facility] Carline Mcfarland DDS Work Phone: [facility] Start: 03-14-2023 ambulatory Erin Pan Facility:[id number] Start: 01-18-2023 End: 01-19-[address] RALEIGH EPPS Facility:[facility]1 Start: 01-04-2023 End: 01-05-[address] RALEIGH EPPS Facility:[facility] Start: 10-04-2022 End: 10-05-[address] DOCTOR MULLER Facility:[facility] Start: 09-30-2022 Office outpatient vi sit 15 minutes Sai Batres Work Phone: MA-Kpqhxmzmskyil-Vhoznp [facility] Work Phone: Start: 09-30-2022 ambulatory Erin Wall Ethelmikie Facility:[id number] Start: 09-20-2022 End: 09-21-[address] RALEIGH EPPS Facility:[facility]1 Start: 09-10-2022 End: 09-10-[address] WES Soni Facility:[facility] Start: 07-19-2022 End: 07-19-[address] RALEIGH EPPS Facility:[facility]1 Start: 03-25-2022 ambulatory Erin Harveyny Facility:[id number] Start: 03-16-2022 End: 03-21-2022 Patient encounter procedure Viry Ortiz [facility] Work Phone: [facility] Start: 03-07-2022 End: 03-07-2022 ambulatory JAYDE NUNEZ . Facility:[facility]1 Start: 09-11-2020 End: 09-12-2020 Patient encounter procedure [facility] Start: 09-11-2020 End: 09-11-2020 Subsequent hospital visit by physician Raleigh Epps Work Phone: [facility] Comment on above: Pharyngeal dysphagia Start: 09-07-2020 End: 09-07-2020 Patient encounter procedure RALEIGH EPPS [facility] Start: 08-09-2019 End: 08-12-2019 Patient encounter procedure [facility] Start: 03-20-2019 Patient encounter procedure Erin Davenportollahi RV-Tmxbdbmhbqysk-CZL [place] [address] Work Phone: Start: 11-21-2018 Patient encounter procedure Erin Davenportollahi SB-Bjpnokebveppq-RJQ [place] [address] Work Phone: Start: 08-29-2018 End: 08-29-2018 Patient encounter procedure [facility] Start: 08-15-2018 Patient encounter procedure Erin Pan ZC-Ilwygdcpjjrof-QRF [place] [address] Work Phone: Start: 03-16-2018 Patient encounter procedure Erin Pan VH-Eusngucxezqdf-INY [place] [address] Work Phone: Start: 11-17-2017 Patient encounter procedure Erin Pan PJ-Sroyjeluqqgpp-BOQ [place] [address] Work Phone: Start: 05-26-2017 Patient encounter procedure Erin Pan EQ-Ttgqpwhbswkkf-ODO [place] [address] Work Phone: Procedures Date Procedure Procedure Detail Performing Clinician Start: 05-19-2025 LIMITED ORAL EVALUAT ION - PROBLEM FOCUSED Jesica Sanchez DDS Work Phone: Start: 05-19-2025 2 EXTRACTION Jesica Sanchez DDS Work Phone: Start: 11-15-2024 Follow-up visit Follow-up ROLAND WHITING Start: 09-15-2023 Blood count complete automated Bola Claire MD Work Phone: Start: 09-11-2020 Videofluoroscopy swallow External Transcribed Start: 08-09-2019 Ct abdomen & pelvis w/contrast material ISAM OUL Start: 03-20-2019 TSH WITH REFLEX TO F REE T4 IF ABNORMAL Erin Pan Start: 08-29-2018 DISCHARGE PATIENT ISAM DABOUL Start: 08-29-2018 SURGICAL PATHOLOGY ISAM DABOUL Start: 08-29-2018 Level i surg patholo gy gross examination only ISAM OUL Start: 08-29-2018 BEDREST ISAM SYLWIA L Start: 08-29-2018 Continuous pulse oximetry ISAM DABOUL Start: 08-29-2018 ENCOURAGE DEEP BREAT YUN AND COUGHING ISAM DABOUL Start: 08-29-2018 INITIATE OXYGEN THER APY PROTOCOL ISAM OUL Start: 08-29-2018 NOTIFY PHYSICIAN (SPECIFY) ISANAHI GARNER Start: 08-29-2018 NURSING COMMUNICATION I REY GARNER Start: 08-29-2018 VITAL SIGNS ISAM DABOU L Start: 08-29-2018 INSERT PERIPHERAL IV IS AM DABOUL Start: 08-15-2018 Thyrotropin [Units/v olume] in Serum or Plasma Bree Whiting MD Work Phone: Plan of Treatment Date Care Activity Detail Author Start: 2041 Shingles (RZV) Vaccine (1 of 2) Shingles (RZV) Vaccine (1 of 2) [facility] Start: 2041 Zoster Vaccines (1 of 2) Zoster Vaccines (1 of 2) [facility] Start: 03-07-2032 DTaP/Tdap/Td Vaccines (9 - Td or Tdap) DTaP/Tdap/Td Vaccines (9 - Td or Tdap) [facility] Start: 11-15-2026 Tetanus vaccination [facility] Start: 07-14-2025 Influenza vaccination INFLUENZA VACCINE (#1) [facility] Start: 11-15-2024 End: 11-15-2024 Patient encounter procedure 11/15/2024 9:20 AM EST Office Visit [facility] [place] [address] [address] [address] [place] [address] Past[address] Sanchez Department of Medicine-Endocrinology [place] [id number] [facility] Start: 09-15-2024 Creatinine measurement Basic Metabolic Panel [facility] Start: 09-13-2024 End: 05-15-2025 25-hydroxyvitamin D3 [Mass/volume] in Serum or Plasma Vitamin D 25-Hydroxy,Total (for eval of Vitamin D levels) Lab Routine History of hypercalcemia Hyperparathyroidism (Multi) Expected: 09/13/2024, Expires: 05/15/2025 [facility] Work Phone: Comment on above: Expected: 09/13/2024, Expires: Start: 09-13-2024 End: 05-15-2025 Magnesium [Mass/volume] in Serum or Plasma Magnesium Lab Routine History of hypercalcemia Expected: 09/13/2024, Expires: 05/15/2025 [facility] Work Phone: Comment on above: Expected: 09/13/2024, Expires: Start: 09-13-2024 End: 05-15-2025 Parathyrin.intact [Mass/volume] in Serum or Plasma Parathyroid Hormone, Intact Lab Routine History of hypercalcemia Expected: 09/13/2024, Expires: 05/15/2025 [facility] Work Phone: Comment on above: Expected: 09/13/2024, Expires: Start: 09-13-2024 End: 05-15-2025 Renal function 2000 panel - Serum or Plasma Renal Function Panel Lab Routine History of hypercalcemia Expected: 09/13/2024, Expires: 05/15/2025 [facility] Work Phone: Comment on above: Expected: 09/13/2024, Expires: Start: 09-13-2024 End: 05-15-2025 Thyrotropin [Units/volume] in Serum or Plasma Thyroid Stimulating Hormone Lab Routine Hypothyroidism, unspecified type Expected: 09/13/2024, Expires: 05/15/2025 [facility] Work Phone: Comment on above: Expected: 09/13/2024, Expires: Start: 09-13-2024 End: 05-15-2025 Thyroxine (T4) free [Mass/volume] in Serum or Plasma Thyroxine, Free Lab Routine Hypothyroidism, unspecified type Expected: 09/13/2024, Expires: 05/15/2025 [facility] Work Phone: Comment on above: Expected: 09/13/2024, Expires: Start: 07-14-2024 COVID-19 VACCINE ( season) COVID-19 VACCINE ( season) [facility] Start: 07-14-2024 Influenza vaccination Influenza Vaccine (#1) [facility] Start: 05-15-2024 End: 05-15-2025 US Thyroid gland US thyroid Imaging Routine Thyroid nodule Expected: 05/15/2024, Expires: 05/15/2025 [facility] Work Phone: Comment on above: Expected: 05/15/2024, Expires: Start: 05-15-2024 End: 05-15-2024 Patient encounter procedure 05/15/2024 11:40 AM EDT Office Visit [facility] [place] [address] [address] [address] [place] [address] [address] Department [place] [address] [facility] [place] Start: 11-15-2023 End: 11-15-2024 Calcitriol [Mass/volume] in Serum or Plasma Vitamin D 1,25 Dihydroxy (for eval of hypercalcemia) Lab Routine Hypercalcemia Expected: 11/15/2023, Expires: 11/15/2024 [facility] Work Phone: Comment on above: Expected: 11/15/2023, Expires: Start: 11-15-2023 End: 11-15-2024 Calcium.ionized [Moles/volume] in Blood Calcium, Ionized Lab Routine Hypercalcemia Expected: 11/15/2023, Expires: 11/15/2024 [facility] Work Phone: Comment on above: Expected: 11/15/2023, Expires: Start: 11-15-2023 End: 11-15-2024 Hepatic function 2000 panel - Serum or Plasma Hepatic Function Panel Lab Routine Hypercalcemia Expected: 11/15/2023, Expires: 11/15/2024 [facility] Work Phone: Comment on above: Expected: 11/15/2023, Expires: Start: 11-15-2023 End: 11-15-2024 Parathyrin.intact [Mass/volume] in Serum or Plasma Parathyroid Hormone, Intact Lab Routine Hypercalcemia Expected: 11/15/2023, Expires: 11/15/2024 [facility] Service Area Work Phone: Comment on above: Expected: 11/15/2023, Expires: Start: 11-15-2023 End: 11-15-2024 Renal function 2000 panel - Serum or Plasma Renal Function Panel Lab Routine Hypercalcemia Expected: 11/15/2023, Expires: 11/15/2024 [facility] Work Phone: Comment on above: Expected: 11/15/2023, Expires: Start: 11-15-2023 End: 11-15-2024 Thyrotropin [Units/volume] in Serum or Plasma Thyroid Stimulating Hormone Lab Routine Hypothyroidism, unspecified type Expected: 11/15/2023, Expires: 11/15/2024 [facility] Work Phone: Comment on above: Expected: 11/15/2023, Expires: Start: 11-15-2023 End: 11-15-2024 Thyroxine (T4) free [Mass/volume] in Serum or Plasma Thyroxine, Free Lab Routine Hypothyroidism, unspecified type Expected: 11/15/2023, Expires: 11/15/2024 [facility] Work Phone: Comment on above: Expected: 11/15/2023, Expires: Start: 10-02-2023 End: 10-02-2023 [facility]AL [facility]ORATIONS DENTAL RESTORATIONS Routine scheduled Caries 10/02/2023 1:10 PM EST [facility] Start: 10-02-2023 End: 10-02-2023 Admission to same day surgery center 10/02/2023 11:24 AM EST - 10/02/2023 1:21 PM EST [facility] [address] [place] [address] Tyrese Alexander, DDS [address] [place] [address] D[facility]ATIONS [facility] Comment on above: [facility]ATIONS Start: 10-02-2023 End: 10-02-2023 DENTAL RESTORATIONS DENTAL RESTORATIONS Routine scheduled Caries 10/02/2023 11:24 AM EST [facility] Start: 10-02-2023 End: 10-02-2023 Admission to same day surgery center 10/02/2023 7:30 AM EST - 10/02/2023 9:27 AM EST Surgery [facility] [address] [place] [address] Tyrese Alexander, DDS [address] [place] [id number] DENTAL RESTORATIONS [facility] Comment on above: [facility] Start: 10-02-2023 End: 10-02-2023 DENTAL RESTORATIONS DENTAL RESTORATIONS Routine scheduled Caries 10/02/2023 7:30 AM EST [facility] Start: 10-02-2023 Subsequent hospital visit by physician [facility] Start: 10-02-2023 End: 10-02-2023 Patient encounter procedure [facility] Start: 09-15-2023 End: 09-15-2023 Patient encounter procedure 09/15/2023 2:00 PM EDT Office Visit [facility] [address] [place] [address] Bola Clarie MD [address] [place] [address] [facility] Start: 07-14-2023 COVID-19 Vaccine ( season) COVID-19 Vaccine ( season) [facility] Start: 07-14-2023 COVID-19 Vaccine ( season) COVID-19 Vaccine ( season) [facility] Start: 07-14-2023 Influenza vaccination Influenza Vaccine (#1) [facility] Start: 02-09-2021 COVID-19 Vaccine (3 - Pfizer series) COVID-19 Vaccine (3 - Pfizer series) [facility] Start: 07-14-2020 Influenza vaccination given Sequential Influenza Vaccine (#1) [facility] Start: 08-15-2019 Thyroid stimulating hormone measurement TSH Level [facility] Start: 2018 HPV Vaccine (optional start 27-45 years) HPV Vaccine (optional start 27-45 years) [facility] Start: 07-14-2013 Annual wellness visit Annual Wellness Visit ([id number]) [facility] Start: 2010 Hepatitis B vaccination HEP B VACCINE (1 of 3 - 19+ 3-dose series) [facility] Start: 2010 Hepatitis B Vaccines (1 of 3 - 19+ 3-dose series) Hepatitis B Vaccines (1 of 3 - 19+ 3-dose series) [facility] Start: 10-28-2009 Varicella vaccination [facility] Start: 2009 Hepatitis C antibody, confirmatory test Hepatitis C Screening [facility] Start: 2009 Hepatitis C screening [facility] Start: 2006 HIV screening [facility] Start: 1994 History and physical examination, annual for health maintenance Wellness Visit [facility] Start: 1991 Basic metabolic 2000 panel - Serum or Plasma Basic Metabolic Panel [facility] Start: 1991 Creatinine measurement Basic Metabolic Panel [facility] Start: 1991 Hepatitis B Vaccines (1 of 3 - 3-dose series) Hepatitis B Vaccines (1 of 3 - 3-dose series) [facility] Start: 1991 Hepatitis C screening HEPATITIS C VIRUS SCREENING [facility] Start: 1991 HIV screening HIV Screening [facility] Start: 1991 Lipid panel Lipid Panel [facility] Start: 1991 Medicare Annual Wellness Visit Medicare Annual Wellness Visit (AWV) [facility] Start: 1991 Tetanus vaccination Tetanus: Every 10yrs [facility] Start: 1991 Thyroid stimulating hormone measurement TSH [facility] End: 09-15-2024 Basic metabolic 2000 panel - Serum or Plasma BASIC METABOLIC PANEL Lab Routine Pre-op exam 1 Occurrences starting 09/15/2023 until 09/15/2024 [employer] Work Phone: Comment on above: 1 Occurrences starting 09/15/2023 until 09/15/2024 CBC panel - Blood by Automated count COMPLETE BLOOD COUNT Lab Routine Pre-op exam Ordered: 09/15/2023 [facility] Comment on above: Ordered: 09/15/2023 COMPREHENSIVE ORAL EVAL - NEW/EST PATIENT COMPREHENSIVE ORAL EVAL - NEW/EST PATIENT Dental Routine 1 Occurrences starting 05/19/2025 [facility] Work Phone: Comment on above: 1 Occurrences starting 05/19/2025 DENTAL RESTORATIONS DENTAL FRANKLYN RATIONS Routine scheduled Caries [facility] INTRAORAL - COMPLETE SERIES OF RADIOGRAPHIC IMAGES INTRAORAL - COMPLETE SERIES OF RADIOGRAPHIC IMAGES Dental Routine 1 Occurrences starting 05/19/2025 [facility] Work Phone: Comment on above: 1 Occurrences starting 05/19/2025 PROPHYLAXIS - ADULT PROPHYLAXIS - ADULT Dental Routine 1 Occurrences starting 05/19/2025 [facility] Work Phone: Comment on above: 1 Occurrences starting 05/19/2025 Immunizations Immunization Date Immunization Notes Care Provider [facility] 08-29-2024 influenza virus vaccine, unspecified formulation Jesica Sanchez [facility] Work Phone: [facility] Work Phone: 03-07-2022 diphtheria, tetanus toxoids and pertussis vaccine Viry Angel [facility] Work Phone: [facility] 09-08-2021 influenza, injectabl e, quadrivalent, preservative free Viry Angel [facility] Work Phone: [facility] 09-08-2021 influenza virus vaccine, unspecified formulation Carline Mcfarland DD Work Phone: [facility] 12-15-2020 Pfizer SARS-COV-2 (COVID-19) vaccine, age 12+ yrs, mRNA, spike protein, LNP, preservative free, 30 mcg/0.3mL dose (FNT=[id number]) Viry Angel [facility] Work Phone: [facility] 11-24-2020 Pfizer SARS-COV-2 (COVID-19) vaccine, age 12+ yrs, mRNA, spike protein, LNP, preservative free, 30 mcg/0.3mL dose (GVN=[id number]) Viry Angel [facility] Work Phone: [facility] 08-27-2020 influenza, injectabl e, quadrivalent, preservative free Viry Angel RD Work Phone: [facility] 08-22-2018 influenza, injectabl e, quadrivalent, contains preservative Viry Angel [facility]DH Work Phone: [facility] Work Phone: 09-06-2017 influenza, injectabl e, quadrivalent, contains preservative Viry Angel RDH Work Phone: [facility] 11-15-2016 tetanus toxoid, redu danika diphtheria toxoid, and acellular pertussis vaccine, adsorbed [facility] Comment on above: Series: 09-03-2015 influenza, injectabl e, quadrivalent, preservative free Viry Angel RD Work Phone: [facility] 09-30-2009 novel [id number], preservative-free, injectable Viry Angel RD Work Phone: [facility] 09-04-2008 influenza virus vaccine, whole virus Viry Angel RD Work Phone: [facility] 08-29-2007 influenza, seasonal, injectable Viry Angel RD Work Phone: [facility] 03-29-2007 meningococcal polysaccharide (groups A, C, Y and W-135) diphtheria toxoid conjugate vaccine (MCV4P) Viry Angel [facility] Work Phone: [facility] 09-29-2006 tetanus toxoid, redu danika diphtheria toxoid, and acellular pertussis vaccine, adsorbed Viry Angel RD Work Phone: [facility] 09-12-2006 influenza, seasonal, injectable Viry Angel RD Work Phone: [facility] 06-25-2003 measles, mumps and rubella virus vaccine Viry Angel [facility] Work Phone: [facility] 09-25-1996 diphtheria, tetanus toxoids and pertussis vaccine Viry Angel RD Work Phone: [facility] 09-25-1996 poliovirus vaccine, inactivated Viry Angel [facility] Work Phone: [facility] 02-05-1993 diphtheria, tetanus toxoids and pertussis vaccine Viry Angel [facility] Work Phone: [facility] 11-23-1992 haemophilus influenz ae type b vaccine, conjugate unspecified formulation Viry Angel [facility] Work Phone: [facility] 11-23-1992 measles, mumps and rubella virus vaccine Viry Angel [facility] Work Phone: [facility] 10-02-1992 poliovirus vaccine, inactivated Viry Angel [facility] Work Phone: [facility] 02-03-1992 diphtheria, tetanus toxoids and pertussis vaccine Viry Angel [facility] Work Phone: [facility] 02-03-1992 haemophilus influenz ae type b vaccine, conjugate unspecified formulation Viry Angel [facility] Work Phone: [facility] 1991 diphtheria, tetanus toxoids and pertussis vaccine Viry Angel [facility] Work Phone: [facility] 1991 haemophilus influenz ae type b vaccine, conjugate unspecified formulation Viry Angel [facility] Work Phone: [facility] 1991 trivalent poliovirus vaccine, live, oral Virykendal GutierrezAngel [facility] Work Phone: [facility] 1991 diphtheria, tetanus toxoids and pertussis vaccine Viry Angel [facility] Work Phone: [facility] 1991 haemophilus influenz ae type b vaccine, conjugate unspecified formulation Viry Angel [facility] Work Phone: [facility] 1991 trivalent poliovirus vaccine, live, oral Viry Angel [facility] Work Phone: [facility] Payers Date Payer Category Payer Unknown 2020 Medicaid MEDICAID [facility] [id number] 2020- [id number] 2016 Medicare [id number] 2012 Medicare [id number] 2010 Medicaid [id number] [id number] [id number] 1991 Unknown [id number] 2.16.840.1.353254.3.579.2.176 1991 Unknown [id number] 2.16.840.1.337258.3.579.2.176 1991 Unknown [id number] 2.16.840.1.747611.3.579.2.903 1991 Unknown [id number] 2.16.840.1.098719.3.579.2.593 1991 Unknown [id number] 2.16.840.1.380653.3.579.2.593 1991 Unknown [id number] 2.16.840.1.945834.3.579.2.593 1991 Unknown [id number] 2.16.840.1.662712.3.579.2.593 1991 Unknown [id number] 2.16.840.1.896876.3.579.2.593 1991 Unknown [id number] 2.16.840.1.237962.3.579.2.593 1991 Unknown [id number] 2.16.840.1.867014.3.579.2.593 1991 Unknown [id number] 2.16.840.1.283555.3.579.2.356 1991 Unknown [id number] 2.16.840.1.638629.3.579.2.356 1991 Unknown [id number] 2.16.840.1.334057.3.579.2.356 1991 Unknown [id number] 2.16.840.1.315510.3.579.2.732 1991 Unknown [id number] 2.16.840.1.605902.3.579.2.732 1991 Unknown [id number] 2.16.840.1.871892.3.579.2.732 1991 Unknown [id number] 2.16.840.1.206701.3.579.2.732 1991 Unknown [id number] 2.16.840.1.243136.3.579.2.727 1991 Unknown [id number] 2.16.840.1.213482.3.579.2.1244 1991 Unknown [id number] 2.16.840.1.078470.3.579.2.1244 1959 Medicaid [id number] 1958 Medicare [id number] Social History Date Type Detail Facility Tobacco smoking status NHIS Unknown if ever smoked ZQ-Epvxgipzoiqim-ITA [facility] Work Phone: Start: 1991 Sex Assigned At Not on file [facility] Start: 05-05-2024 End: 05-15-2024 Exposure to SARS-CoV-2 (event) Not sure [facility] Start: 12-07-2017 End: 05-19-2025 Tobacco smoking status CTIS Never smoked tobacco [facility] Start: 12-07-2017 End: 05-19-2025 Tobacco use and exposure Smokeless tobacco non-user [facility] Start: 05-15-2024 End: 05-19-2025 Never smoker Never smoker HF-Xnujlktbznfcy-Gvm melia [facility] Work Phone: Start: 05-15-2024 End: 05-19-2025 Gender identity Not on file [facility] Tobacco smoking status NHIS Tobacco smoking consumption unknown [facility] Work Phone: Start: 11-05-2023 End: 11-15-2023 Exposure to SARS-CoV-2 (event) Yes [facility] Start: 05-19-2025 Alcoholic beverage intake Lifetime non-drinker (finding) [facility] Work [facility]: Start: 04-21-2025 [facility] Start: 05-19-2025 Gender identity Identifies as male gender (finding) [facility] Work Phone: NEGATED: Highlighted row - - II-Ghsthnaqjneyy-NLM [address] Work Phone: NEGATED: Highlighted rowStart: NINF History of tobacco use Passive smoker [facility] Work Phone: Functional Status Date Assessment Result Facility NEGATED: Highlighted row Functional performance Functional status health issues are not documented Disease DT-Lsxnnxegrvbrj-AF C [facility] Work Phone: Mental Status Date Assessment Result Facility NEGATED: Highlighted row Cognitive function [Interpretation] Cognitive status health issues are not documented Disease SQ-Qhjjxaasehqmc-DI C [facility] [address] Work Phone: Clinical Notes 03-16-2022 to 05-19-2025 Jesica Sanchez DDS - 05/19/2025 1:00 PM EDTPatient InstructionsDental Procedure Details - Jesica Sanchez DDS - 05/19/2025 1:00 PM Anibal Parker MD - 05/15/2024 11:40 AM EDTPatient Instructions Note Date & Type Note Facility 05-19-2025 History of Present illness Narrative Dental Exam 05/19/2025 Hair Weaver Needed: No. Chief Complaint Patient presents with New Patient OR patient History of Present Illness Past Medical History: Diagnosis Date Attention deficit hyperactivity disorder (ADHD) Autism Bipolar 1 disorder with moderate clemencia Chronic constipation Essential hypertension, benign Excessive salivation Familial hypocalciuric hypercalcemia Folate deficiency GERD (gastroesophageal reflux disease) Halitosis Hypothyroidism Intellectual developmental disorder, severe Lichen simplex chronicus Myopia Oral lesion Periodontal disease Pharyngeal dysphagia Renal disease Seasonal affective disorder Teeth grinding Thyroid nodule Tooth sensitivity Urinary retention Vitamin D deficiency Current Outpatient Medications Medication Sig Acetaminophen 325 MG tablet Take 1-2 tablets by mouth every 4 hours as needed. busPIRone 10 MG tablet Take 1 tablet by mouth 3 times daily. Docusate 100 MG capsule Take 1 capsule by mouth 2 times daily. Folic acid 1 MG tablet Take 1 tablet by mouth daily. gabapentin 800 MG tablet Take 2 tablets by mouth 2 times daily. guanFACINE 1 MG tablet Take 2 tablets by mouth at bedtime. Levothyroxine 50 MCG tablet Take 1 tablet by mouth daily. lurasidone HCl 80 MG tablet Take 1 tablet by mouth at bedtime. Metoprolol 100 MG tab regular release Take 1 tablet by mouth 2 times daily. omeprazole [address] capsule Take 1 capsule by mouth daily. topiramate 25 MG Cap Sprinkle Take 1 capsule by mouth 2 times daily. traZODone 100 MG tablet Take 1 tablet by mouth at bedtime. There were no vitals filed for this visit. No Known Allergies Tobacco Use: Low Risk (05/19/2025) Patient History Smoking Tobacco Use: Never Smokeless Tobacco Use: Never Passive Exposure: Never Dental Case Management: Treatment considerations resulting in substantial functional limitations requiring modifications to deliver treatment to provide comprehensive oral health care based on findings including: Cognitive: Additional pathology assistant necessary Radiographic Interpretation: unable to take radiographs at today's appointment Images and Retakes: Bitewings: 0 Vertical Bitewings: 0 PA: 0 Panorex: 0 Retakes: 0 Risk Assessments: Caries Risk: high risk due to mental disability Periodontal: severe Head and Neck Exam Extraoral Exam: Abnormal: lips (scar from biting through lip) Intraoral Exam: Abnormal: buccal mucosa (traumatic ulcer left cheek), tongue (scallop/coated tongue) and gums (erythematous, edematous) Severe plaque build up All other head and neck concerns negative Soft Tissue Exam Findings added this encounter Scar on Left [place] Lip Traumatic ulcer on Left Buccal Mucosa Diagnosis: 1. Encounter for dental examination and cleaning with abnormal findings Additional Findings: Not applicable Anali-Implant Diseases and Conditions: Not Applicable Comprehensive Periodontal Prognosis: Questionable Periodontal Status: Nonstable Assessment: The patient presented to the clinic today for a new patient examination. The caregivers reported that the patient has a history of receiving dental treatment under general anesthesia in the operating room (OR), although it has been some time since the last visit, and the current hospital has a 4 year long waitlist. A thorough review of the patient s medical history was provided and completed. Due to the patient's severe intellectual and developmental disability (IDD), they were unable to cooperate for a comprehensive oral examination. As a result, only a limited visual assessment was possible. The patient was able to tolerate a brief brushing of the teeth and a chlorhexidine rinse. Given the patient's inability to tolerate in-office procedures, severe IDD and chronic kidney disease stage 3, treatment under general anesthesia in the OR is recommended. The proposed treatment includes a comprehensive dental examination, a full mouth series of radiographs, and an adult prophylaxis. The caregiver was given the opportunity to ask questions and demonstrated understanding of the treatment plan and recommendations moving forward. Procedure Details D0140 - LIMITED ORAL EVALUATION - PROBLEM FOCUSED Was local anesthetic administered? No View note/ assessment above Next Visit: OR Encounter Providers N/A: Jesica Sanchez DDS documented in this encounter [facility] Work Phone: 05-19-2025 Instructions Jesica Sanchez DDS - 05/19/2025 1:00 PM EDT Your Caries Risk Report Your Risk Level: Low Moderate High x MODERATE RISK MINIMAL RECOMMENDATIONS: Bitewing radiographs every 18-24 months (ADA recommendations) Periodic recall exams every 4-6 months to reevaluate caries risk OTC fluoride-containing toothpaste twice daily. After breakfast and at bedtime. OTC 0.05% NaF rinse daily ADDITIONAL RECOMMENDATIONS: documented in this encounter [facility] Work Phone: 05-19-2025 Miscellaneous Notes Was local anesthetic administered? No View note/ assessment above documented in this encounter [facility] Work Phone: 05-19-2025 ore trimmer procedure note Was local anesthetic administered? No View note/ assessment above [facility] Work Phone: 05-15-2024 History of Present illness Narrative Markel Li is a 33 y.o. male with pmh of severe mental retardation, autism, bipolar disorder,severe psychosis, GERD, HTN , hypercalcemia [facility] 2/2 [facility] with exacerbation by lithium intake (that has been taking since 09/1999-> off), hypothyroidism with goiter and bilateral thyroid cysts , used to follow up with Dr Wall , here for his 6 months follow up. Last clinic visit: 11/2023. Interval hx: ======= He is accoumpanied by a behavioral help from [facility] . He states that the patient has been in good spirits with no violent outbursts. Sleep is good. Has freq bowel mvts. No cold or heat intolerance. Wt and appetitie is stable. No polyuria . No fractures recently or difficulty swallowing . No tremors no palpitations. He is taking levothyroxine 75 mcg daily He is not on Mccurtain 300 mg anymore but is on oxecarbamazepine. [...] be scanned in his chart: 01/03/2024 at [facility]: -PTH: 19 -Calcium: 9, alb: 3.8 -creat: [...] resolved HyperCa Presumed to be SE of Mccurtain, less likely [facility] given the improvement in [...] in the note. documented in this encounter [facility] Work Phone: 05-15-2024 Instructions Bree Whiting MD - 05/15/2024 11:40 AM EDT Continue levothryoxine 75mcg daily Continue calcium 500mg BID Continue Vitamin D 4000 units daily Schedule a thyroid ultrasound Get your labs done prior to the next appointment (sometime in September) Follow up in 6 months Bree Whiting MD Divison of Endocrinology [facility] option 4, then option [address] encounter [facility] Work Phone: 11-15-2023 History of Present [...] examined, and discussed with Dr. Whiting ----- [facility] Markel Rick Li is a 33 y.o. 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 Interval History - Pt was last seen by Dr. aWll on 03/2023 . He is accoumpanied by a behavioral help from [facility] . He states that the patient has been in good spirits with no violent outbursts. Sleep is good. No issues with bowel abnormalities. No cold or heat intolerance. Wt and appetitie is stable. No polyuria . No fractures recently or difficulty swallowing . He is taking levothyroxine at 4 pm in the afternoon and not from other meds. He not on Mccurtain 300 mg anymore but is on oxecarbamzaepine [...] 2.17 m guardian is brother Yogesh nb [phone] Associated attestation - Bree Whiting MD - [...] in the note. documented in this encounter [facility] Work Phone: 11-15-2023 Instructions Bree Whiting MD - 11/15/2023 9:40 AM EST -change timing for levothyroxine to 50mcg daily at600 am hold other meds at least 30 min after -increase vitamin D to 5000 units daily -calcium 500mg (elemental ca) twice a day with meals Get your labs done now Follow up in 6 months Bree Whiting MD Divison of Endocrinology [facility] option 4, then option [address] encounter [facility] Work Phone: 10-02-2023 Hospital Discharge instructions [...] very uncomfortable and can t urinate, call [phone] or come to the emergency room. The following attachments cannot be sent through Care Everywhere.Dental Pain Discharge Instructions (Barbadian)documented in this encounter [facility] 10-02-2023 Note Surgical Attestation : I have [...] Tyrese Alexander DDS 10/02/2023 12:41 PM [facility] 10-02-2023 Surgery Postoperative evaluation and management note Brief Operative Note PHE OR 3 Markel Li 33 year old male Surgical Contact Serial Number: [id number] Preoperative Diagnosis: Caries [K02.9] Autism [ F 84] Postoperative Diagnosis: * Caries [K02.9] Procedures: Full mouth X ray [99928] Comprehensive exam [53282] Prophylaxis [35559] Restorations [20181] Surgeon(s): Surgeon(s): Tyrese Alexander DDS Staff: Call Center Consultant Nurse: Nina Galan RN Geothermal Hvac Technician: Ca Raza DDS; Rosas Narayanan DDS Anesthesia: General Anesthesiologist: Timothy Elizalde MD SALES DEVELOPMENT MANAGER: Rainer Fatmia APRN-SALES DEVELOPMENT MANAGER Anesthesia Student: Joyce Rivers Specimen(s): * [...] by Rosas Martini DDS 10/02/2023 2:29 PM [facility] 10-02-2023 Surgery Surgical operation note Surgical Case Number Data Unavailable Operating Room Data Unavailable Preoperative Diagnosis: Caries [K02.9] Autism [ F 84] Preoperative Diagnosis: Caries [K02.9] Autism [ F 84] Postoperative Diagnosis: Autism [ F 84] Procedures: Full mouth X ray [24670] Comprehensive exam [48688] Prophylaxis [73764] Restorations [32874] Postoperative Diagnosis(es): Same @ENCORD@ Surgeon: Dr Tyra DDS Tube Puller Surgeon: WILLIAMS Corcoran DDS Anesthesia: General- Nasal [...] procedure. Rosas Martini DDS 10/02/2023 2:34 PM [facility] History and physical note Surgical [...] possible Tyrese Alexander DDS 10/02/2023 12:[address] [facility] Work Phone: 10-02-2023 History and physical note [...] 10/02/2023 12:41 PM documented in this encounter [facility] 10-02-2023 Progress note Formatting of t his note is different from the original. Blood Attestation: ATTESTATION OF INFORMED CONSENT FOR BLOOD: The transfusion of blood and/or blood components were discussed with the patient and/or legal in home sales representative. The risks, benefits and alternatives were reviewed. Questions regarding blood transfusions were answered. The patient /or the patient s legal in home sales representative agree with the plan for transfusion of blood and/or blood components. [facility] Work Phone: 10-02-2023 History of Present illness Narrative ----- Monday, October 02, 2023 at 2:27:57 PM ----- ----- Provider: [id number] - Tyrese Mary DDS -- Clinic: [facility] ----- [place] notes, [facility] pt is read for tx good [place]. [...] Note Type: OP Note Status: Cosign Needed Blower Mechanic: Rosas Narayanan DDS (Resident) Cosign Required: Yes Expand All Collapse All Surgical Case Number Data Unavailable Operating Room Data Unavailable Preoperative Diagnosis: Caries [K02.9] Autism [ F 84] Preoperative Diagnosis: Caries [K02.9] Autism [ F 84] Postoperative Diagnosis: Autism [ F 84] Procedures: Full mouth X ray [39360] Comprehensive exam [58451] Prophylaxis [36440] Restorations [08333] Postoperative Diagnosis(es): Same @ENCORD@ Surgeon: Dr Tyra DDS Tube Puller Surgeon: WILLIAMS Corcoran DDS Anesthesia: General- Nasal [...] 10/02/2023 2:34 PM documented in this encounter [facility] 09-27-2023 Telephone encounter Note DD adult dental restorations on 10/02 under GA at [place]. PSE completed - consents obtained. PSE RN spoke to Miriam from [facility], confirmed [facility], [place] address, and 1100 arrival time [facility] 09-27-2023 Miscellaneous Notes DD adult dental restorations on 10/02 under GA at [place]. PSE completed - consents obtained. PSE RN spoke to Miriam from [facility], confirmed [facility], [place] address, and 1100 arrival time documented in this encounter [facility] 09-19-2023 Telephone encounter Note Informed Consent for dental surgery & Anesthesia consent obtained and scanned into EPIC. Scheduled for surgery 10/02/2023. [facility] 09-19-2023 Miscellaneous Notes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
[2025-06-02 07:34] LABS: Anion Gap 14.4; Blood Urea Nitrogen 18.0 mg/dL (7.0-18.0); Calcium 9.3 mg/dL (8.5-10.1); Carbon Dioxide 27.0 mmol/L (21.0-32.0); Chloride 109 mmol/L (98-107); Estimated GFR (African America >60 (>=60 mL/min/1.73m^2); Estimated GFR (Non-African Ame 56 (>=60 mL/min/1.73m^2); Glucose 89 mg/dL (74-106); Potassium 4.4 mmol/L (3.5-5.1); Sodium 146 mmol/L (136-145)
== END 2025-06-02 06:41 | disposition home or self-care (01) ==
LOC: LAB 06:40
PROVIDERS: PCP Family Medicine; Visit Provider Family Medicine
DX: K59.00 Constipation, unspecified (principal); N18.30 Chronic kidney disease, stage 3 unspecified; F90.9 Attention-deficit hyperactivity disorder, unspecified type; K21.9 Gastro-esophageal reflux disease without esophagitis; F31.9 Bipolar disorder, unspecified; Z79.899 Other long term (current) drug therapy
CPT/HCPCS: 36415; 80048